=== PATIENT | female | born 1995 | race Caucasian/White ===

== ENCOUNTER → 2022-01-20 | Outpatient (CLI) | payer MEDICAID, SELFPAY ==
[2022-01-20 17:46] LABS: Amphetamine Urine VISTA NEGATIVE (<1000 ng/mL); Barbiturate Urine VISTA NEGATIVE (< 200 ng/mL); Benzodiazepine Urine VISTA NEGATIVE (< 200 ng/mL); Cocaine Urine VISTA NEGATIVE (< 300 ng/mL); Ecstacy Urine VISTA NEGATIVE (< 500 ng/mL); Methadone Urine VISTA NEGATIVE (< 300 ng/mL); PCP Urine VISTA NEGATIVE (< 25 ng/mL); THC Urine VISTA NEGATIVE (< 50 ng/mL); Vista UDS pH Range 7
[2022-01-22 22:07] LABS: Chlamydia By Nucleic Acid AMP Negative (Negative)
[2022-01-25 15:59] LABS: Gonococcus By Nucleic Acid AMP Negative (Negative)
[2022-01-28 12:25] LABS: HPV Reflexed? NOT INDICATED
== END | disposition home or self-care (01) ==
LOC: LABSPEC 15:58
PROVIDERS: Referring Provider Obstetrics & Gynecology; Visit Provider Obstetrics & Gynecology
DX: Z34.00 Encounter for supervision of normal first pregnancy, unspecified trimester (principal)
CPT/HCPCS: 80307; 87086; 87088; 87491; 87591; 88175; G0145

== ENCOUNTER 2022-01-29 11:32 | Outpatient (CLI) | payer MEDICAID, SELFPAY ==
[2022-01-29 12:30] LABS: Absolute Lymphocyte Count 2.43 X10^3/uL (0.83-4.51); Absolute Neutrophil Count 7.7 X10^3/uL (2.0-7.7); Basophil# 0.03 X10^3/uL; Basophil% 0.3 % (0-1); Eosinophil# 0.03 X10^3/uL; Eosinophils% 0.3 % (0-5); Hematocrit 39.4 % (37-47); Hemoglobin 13.2 g/dL (12.0-15.0); Lymphocyte # 2.43 X10^3/ul (0.83-4.51); Lymphocyte % 22.2 % (19-41); Mean Corp Hgb Conc 33.5 g/dL (32-36); Mean Corpuscular Hgb 28.9 pg (27.0-32.0); Mean Corpuscular Volume 86.4 fL (81-99); Mean Platelet Vol. 11.2 fl (6.2-12.0); Monocyte% 6.4 % (0-10); NRBC Flagged by Analyzer 0 % (0-5); Neutrophil # 7.71 X10^3/uL (2.7-7.7); Neutrophil % 70.3 % (47-70); Platelet Count 293 K/mm3 (150-450); RBC Distribution Width CV 12.1 % (11.6-14.6); RBC Distribution Width SD 38.4 fl (35.1-43.9); Red Blood Count 4.56 M/mm3 (4.2-5.4)
[2022-01-29 12:43] LABS: NATERA MAILED SPECIMEN
[2022-01-29 12:59] LABS: Glucose Challenge Gest 1H 50g 74 mg/dL (70-140)
[2022-01-29 13:40] LABS: HIV - WCH Non-Reactive (Nonreactive); Hepatitis B Surface Antigen Non-Reactive (Nonreactive); Hepatitis C Antibody Non-Reactive (Nonreactive); Rubella IgG Reactive (Nonreactive); Syphilis Antibodies Non-reactive
== END 2022-01-29 23:59 | disposition home or self-care (01) ==
LOC: LAB 11:34
PROVIDERS: Visit Provider Obstetrics & Gynecology
DX: Z34.81 Encounter for supervision of other normal pregnancy, first trimester (principal); Z31.430 Encounter of female for testing for genetic disease carrier status for procreative management
CPT/HCPCS: 36415; 82950; 85025; 86703; 86762; 86780; 86803; 86850; 86900; 86901; 87340

== ENCOUNTER → 2022-05-25 | Outpatient (CLI) | payer MEDICAID, SELFPAY ==
[2022-05-25 13:40] LABS: Absolute Lymphocyte Count 2.12 X10^3/uL (0.83-4.51); Basophil# 0.04 X10^3/uL; Basophil% 0.3 % (0-1); Eosinophil# 0.03 X10^3/uL; Eosinophils% 0.3 % (0-5); Hemoglobin 11.7 g/dL (12.0-15.0); Lymphocyte # 2.12 X10^3/ul (0.83-4.51); Lymphocyte % 17.7 % (19-41); Mean Corp Hgb Conc 32.5 g/dL (32-36); Mean Corpuscular Volume 89.3 fL (81-99); Mean Platelet Vol. 11.2 fl (6.2-12.0); Monocyte# 0.65 X10^3/uL; Monocyte% 5.4 % (0-10); NRBC Flagged by Analyzer 0 % (0-5); Neutrophil # 9.01 X10^3/uL (2.7-7.7); Neutrophil % 75.3 % (47-70); Platelet Count 283 K/mm3 (150-450); RBC Distribution Width CV 12.9 % (11.6-14.6); Red Blood Count 4.03 M/mm3 (4.2-5.4)
[2022-05-25 14:04] LABS: Glucose Challenge Gest 1H 50g 100 mg/dL (70-140)
[2022-05-25 14:36] LABS: HIV - WCH Non-Reactive (Nonreactive); Syphilis Antibodies Non-reactive
== END | disposition home or self-care (01) ==
PROVIDERS: Referring Provider Nurse Practitioner Women's Health; Visit Provider Nurse Practitioner Women's Health
DX: Z34.90 Encounter for supervision of normal pregnancy, unspecified, unspecified trimester (principal)
CPT/HCPCS: 36415; 82950; 85025; 86703; 86780

== ENCOUNTER → 2022-06-29 | Outpatient (CLI) | payer MEDICAID, SELFPAY ==
[2022-06-29 09:57] LABS: Absolute Lymphocyte Count 2.11 X10^3/uL (0.83-4.51); Absolute Neutrophil Count 8.5 X10^3/uL (2.0-7.7); Basophil# 0.04 X10^3/uL; Basophil% 0.3 % (0-1); Eosinophil# 0.06 X10^3/uL; Eosinophils% 0.5 % (0-5); Hematocrit 35.6 % (37-47); Lymphocyte # 2.11 X10^3/ul (0.83-4.51); Lymphocyte % 18.3 % (19-41); Mean Corp Hgb Conc 33.7 g/dL (32-36); Mean Corpuscular Hgb 29.6 pg (27.0-32.0); Mean Corpuscular Volume 87.7 fL (81-99); Mean Platelet Vol. 11.4 fl (6.2-12.0); Monocyte# 0.73 X10^3/uL; Monocyte% 6.3 % (0-10); NRBC Flagged by Analyzer 0 % (0-5); Neutrophil # 8.46 X10^3/uL (2.7-7.7); Neutrophil % 73.7 % (47-70); Platelet Count 251 K/mm3 (150-450); RBC Distribution Width CV 13.2 % (11.6-14.6); RBC Distribution Width SD 42.1 fl (35.1-43.9); Red Blood Count 4.06 M/mm3 (4.2-5.4); White Blood Count 11.5 K/mm3 (4.4-11.0)
[2022-06-29 10:38] LABS: ALB/GLOB Ratio 0.6 RATIO (0.9-2.4); AST(SGOT) 14 U/L (15-37); Alanine Aminotransfer ALT/SGPT 15 U/L (13-56); Albumin, Serum 2.5 g/dL (3.2-5.0); Alkaline Phosphatase 106 U/L (45-117); Anion Gap 8 (5-15); BUN 4 mg/dL (7-18); BUN/Creat Ratio 6.6 RATIO (10-20); Calcium,Total 8.6 mg/dL (8.5-10.1); Chloride 110 mmol/L (98-107); EST Glomerular Filtration Rate 127 mL/min (>60); Est Glom Filt Rate - Afr Amer 154 mL/min (>60); Globulin 3.9 g/dL (2.2-4.2); Glucose 99 mg/dL (74-106); Potassium 3.4 mmol/L (3.5-5.1); Protein, Total 6.4 g/dL (6.4-8.2); Sodium Level 141 mmol/L (136-145)
== END | disposition home or self-care (01) ==
PROVIDERS: Referring Provider Nurse Practitioner Women's Health; Visit Provider Nurse Practitioner Women's Health
DX: Z34.90 Encounter for supervision of normal pregnancy, unspecified, unspecified trimester (principal); L29.8 Other pruritus
CPT/HCPCS: 36415; 80053; 85025

== ENCOUNTER 2022-07-24 14:36 | Observation (INO) | payer MEDICAID, SELFPAY ==
[2022-07-24] VITALS (7 sets, daily range): BP systolic 113–127; BP diastolic 58–67; PULSE 77–98; TEMP 36.6–37.4; O2SAT 98–100; BMI 41.0
[2022-07-24 15:00] LABS: Color, Urine Yellow (Yellow); Glucose, Dipstick Normal (Normal); Ketone-Dipstick Negative (Negative); Leukocyte Esterase-Dipstick 100 /ul (Negative); Nitrite-Dipstick Negative (Negative); Occult Blood-Urine Negative /ul (Negative); Protein-Dipstick 15 mg/dl (Negative); Specific Gravity, Urine 1.015 (1.002-1.030); Urine Bilirubin Dipstick Negative (Negative); Urine Clarity Sl. Cloudy (Clear); Urine Urobilinogen Normal (Normal)
[2022-07-24 15:12] LABS: Bacteria 2+ /hpf (None Seen); Mucous, Urine RARE /hpf (<or=2+); Red Blood Cells-Urine 0-5 SEEN /hpf (0-5); Squamous Epithelial Cells - UA 5-10 SEEN /hpf (5-10); White Blood Cells 5-10 SEEN /hpf (0-5)
[2022-07-24] MEDS: Acetaminophen 500 MG Tablet 1000 MG PO (16:00)
[2022-07-24] MEDS: Phenazopyridine 95 MG Tablet 190 MG PO (16:24)
--- NOTE | 2022-07-24 16:47 | US_ITS ---
STUDY: RENAL ULTRASOUND - COMPLETE REASON FOR EXAM: Female, 26 years old. Back pain at 36 weeks . Flank pain. TECHNIQUE: Ultrasound evaluation of the kidneys was performed with real-time and static drake-scale imaging. COMPARISON: None. FINDINGS: RIGHT KIDNEY: Normal location of the right kidney, which is normal in size. The right kidney measures 11.0 cm. There is a normal cortex of the right kidney. The renal cortex measures 1.3 cm. There is no right renal mass or cyst. There are no right renal calculi. There is no right hydronephrosis. DISTAL RIGHT URETER: There is non-visualization of the distal right ureter. There is no demonstrated right ureterovesical junction calculus. There is no demonstrated right ureteral jet. LEFT KIDNEY: Normal location of the left kidney, which is mildly enlarged in size. The left kidney measures 12 point cm. There is a normal cortex of the left kidney. The renal cortex measures 1.5 cm. There is a 1.5 x 1.3 x 1 point 7 cm exophytic cyst. There are no left renal calculi. There is no left hydronephrosis. DISTAL LEFT URETER: There is non-visualization of the distal left ureter. There is no demonstrated left ureterovesical junction calculus. There is no demonstrated left ureteral jet. BLADDER: The urinary bladder is empty and cannot be evaluated. US/Kidney and Bladder IMPRESSION: 1. Normal kidneys. The urinary bladder is empty and cannot be evaluated. Electronically Signed: Rodrigo Washburn DO at 19:42 EST ,
[2022-07-24] MEDS: Lactated Ringers 1,000 ML 999 ML IV (17:15)
--- NOTE | 2022-07-24 17:37 | HP.PCM.OB_ITS ---
HPI - General HPI Narrative JOJO PELAEZ, is a 26 F who presents at 36 weeks with sudden mid back pain that radiates to her upper abdomen starting at 130pm after getting out of the shower. +fm, no lof/vb. uriah every 2-3 minutes. 8/10 pain. urine dip with +leukocytes, no heme, no nitrates Maternal Data Information THOMAS Calculator Estimated Delivery Date Method Current WG Current Estimate 08/21/22 LMP (Certain) 36w 0d Other Estimates 08/17/22 Ultrasound #1 36w 4d PFSH PFSH Home Medications PNV 153-FA 400 mcg-om3 35 mg-dha 25 mg-epa 5 mg-fish oil chew tablet 1 tab PO DAILY 01/13/22 [History Last Taken 07/24/22 08:00] nitrofurantoin monohydrate/macrocrystals 100 mg capsule (Macrobid) 100 mg PO Q12H 5 days #10 caps 07/24/22 [Rx Last Taken Unknown] Allergy/AdvReac Type Severity Reaction Status Date / Time No Known Allergies Allergy Verified 07/24/22 14:52 Social History adopted: No household members: significant other and family housing: house current occupational status: employed 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 current occupational exposures/hazards: No pets and animals: Yes pets and animals: dog(s) history of recent travel: No sexually active: Yes Smoking Status: Never smoker second hand exposure: No alcohol intake: former details: rarely socially- Not while substance use type: does not use well-balanced diet: daily or most days caffeine: Yes Type: coffee Number of servings: 1 eating out: 1-3 times/week during the past year weight has: decreased > 10 lbs what type of physical activity do you participate in: none ronn/zoroastrianism: None seatbelt use: always do you feel safe at home: Yes additional social history: Boyfriend Pernell- Pest Control History 1 Elective abortions Hx Para 0 Spontaneous abortions Hx # Term Pregnancies Ectopic pregnancies Hx # Pregnancies Multiple births # of living children Visit Details Expected Delivery Route/Plan Labor Preferences- CB/BF classes: completing,thinking about just breath class labor support person:partner labor intervention preferences: [] pain management options preferred: [] cut cord/dad catch: [] :planning PP control planned: desires shorter interval . wants all children prior to 30 discussed possible routes of delivery and associated risks: special requests: [] Plans Covid status: discussed Flu vaccine: discussed Tdap vaccine: declined Rhogam: na LARC form signed: completed Problem list reviewed and updated with the most current plan of care details and appropriate orders placed. Relevant counseling for the gestational age provided. Continue routine care and follow up unless otherwise noted in visit notes/problem list details OB Flowsheet Initial Weight: Not Recorded Date -?-?-?-?-?-?-?-?-?-?-?-?- EGA Weight BP Urine Prot -?-?-?-?-?-?-?-?-?-?-?--?- Glucose FHR FuHt Pres Dilation -?-?-?-?-?-?-?-?-?-?-?-?- Effaced St Visit Note 01/20/22 -?-?-?-?-?-?-?-?-?-?-?-?- 9w 4d 219 lb 6 oz 125/82 -?-?-?-?-?-?-?-?-?-?-?-?- 171 -?-?-?-?-?-?-?-?-?-?-?-?- JV- CRL consiste nt with LMP. 02/16/22 -?-?-?-?-?-?-?-?-?-?-?-?- 13w 3d 218 lb 126/78 -?-?-?-?-?-?-?-?-?-?-?-?- 160 -?-?-?-?-?-?-?-?-?-?-?-?- SM- no vb crampi ng 03/16/22 -?-?-?-?-?-?-?-?-?-?-?-?- 17w 3d 217 lb 8 oz 128/76 Nega tive -?-?-?-?-?-?-?-?-?-?-?-?- Negative 156 -?-?-?-?-?-?-?-?-?-?-?-?- MH-No VB. Feels well. High fraction on NIPT-declines invasive [facility] [place] -?-?-?-?-?-?-?-?-?-?-?-?- 21w 3d 218 lb 138/76 Negative -?-?-?-?-?-?-?-?-?-?-?-?- Negative 140 21 -?-?-?-?-?-?-?-?-?-?-?-?- SM- no vb abe kiser discussed nipt and US results, still declines invasive testing, plan repeat US due to marginal insertion of cord and limited heart views. 05/12/22 -?-?-?-?-?-?-?-?-?-?-?-?- 25w 4d 221 lb 6 oz 128/68 Nega tive -?-?-?-?-?-?-?-?-?-?-?-?- Negative 161 25 -?-?-?-?-?-?-?-?-?-?-?-?- MH-No VB, LOF. G ood FM. MFM US for growth next week. 05/27/22 -?-?-?-?-?-?-?-?-?-?-?-?- 27w 5d 220 lb 6 oz 110/74 -?-?-?-?-?-?-?-?-?-?-?-?- 151 29 -?-?-?-?-?-?-?-?-?-?-?-?- LC- no concerns. no vb/ctx/lof. good fm. LC- no concerns. no vb/ctx/l of. good fm.28 week labs normal. larc completed. 06/08/22 -?-?-?-?-?-?-?-?-?-?-?-?- 29w 3d 222 lb 116/70 Negative -?-?-?-?-?-?-?-?-?-?-?-?- Negative 150 30 -?-?-?-?-?-?-?-?-?-?-?-?- SM- no vb lof go od fm no regular ctx declined tdap 06/22/22 -?-?-?-?-?-?-?-?-?-?-?-?- 31w 3d 225 lb 112/67 Negative -?-?-?-?-?-?-?-?-?-?-?-?- Negative 145 32 -?-?-?-?-?-?-?-?-?-?-?-?- Lc- no vb/ctx/lo f. good fm. to start NST next week. growth scan at 65% 06/29/22 -?-?-?-?-?-?-?-?-?-?-?-?- 32w 3d 225 lb 6 oz 108/66 Nega tive -?-?-?-?-?-?-?-?-?-?-?-?- Negative 140 -?-?-?-?-?-?-?-?-?-?-?-?- -NST only reac tive. New rash on abdomen only/itching. Labs ordered. 07/06/22 -?-?-?-?-?-?-?-?-?-?-?-?- 33w 3d 224 lb 8 oz 111/73 Nega tive -?-?-?-?-?-?-?-?-?-?-?-?- Negative 130 -?-?-?-?-?-?-?-?-?-?-?-?- SM- no vb lof go od fm no regular ctx 07/13/22 -?-?-?-?-?-?-?-?-?-?-?-?- 34w 3d 228 lb 4 oz 118/78 Nega tive -?-?-?-?-?-?-?-?-?-?-?-?- Negative 130 -?-?-?-?-?-?-?-?-?-?-?-?- -NST only reac tive 07/20/22 -?-?-?-?-?-?-?-?-?-?-?-?- 35w 3d 229 lb 113/72 Negative -?-?-?-?-?-?-?-?-?-?-?-?- Negative 130 -?-?-?-?-?-?-?-?-?-?-?-?- LC- reactive NST , no concerns. has appt with MFM for growth scan end of july. good fm, no ctx, lof/vb. NST FHR Rate Baby A Baseline: 125 Variability:: Moderate Accelerations:: 15 x 15 Decelerations:: None NST Reactive:: Yes FHR Category:: Category I Uterine Activity:: q2-3 ROS Cardiovascular Cardiovascular: Denies abdominal pain, chest pain, diaphoresis or dyspnea Genitourinary Genitourinary: Reports change in urinary stream Musculoskeletal Musculoskeletal: Reports none Integumentary Integumentary: Reports none Neurologic Neurologic: Reports none Psychiatric Psychiatric: Reports none Endocrine Endocrinology: Reports none Hematologic/Lymphatic Hematologic/Lymphatic: Reports none Allergic/Immunologic Allergic/Immunologic: Reports none Vital Signs Vital Signs Vital Signs: 07/24/22 14:57 07/24/22 14:57 07/24/22 14:57 Temperature Temperature Source Temporal Pulse Rate 77 Blood Pressure 127/67 H BP Systolic 127 BP Diastolic 67 07/24/22 14:57 Temperature 97.9 F Temperature Source Pulse Rate Blood Pressure BP Systolic BP Diastolic Weight Weight: 231 lb 7.766 oz Body Mass Index (BMI) 41.0 Physical Exam Const alert, oriented x3 and no apparent distress General Appearance: cooperative, comfortable and well kempt Orientation / Consciousness: awake and oriented to person Exam Limitations: no limitations HEENT normocephalic Neck full ROM Chest inspection of chest normal Resp normal respiratory effort, normal air movement and no retractions Effort and Inspection: able to speak in complete sentences and symmetric chest movement Cardio regular rate Peripheral Pulses: pulses 2+ throughout GI normal to inspection, nondistended, normoactive bowel sounds Inspection: gravid Manual OB Exam: estimated gestational size appropriate and presentation cephalic Uterus Palpation: Negative for uterus tender Back/Spine General Back: tenderness Extremity normal to inspection General Extremity: Negative for calf tenderness Skin no rashes or lesions noted Neuro moves all extremities Psych mental status grossly normal Activity / Motor Behavior: appropriate eye contact Speech: normal speech Labs Labs Labs: Blood Type A POSITIVE Antibody Screen NEGATIVE Hct 41.3 % (37-47) Hgb 13.9 g/dL (12.0-15.0) Syphilis Total Ab Non-reactive Rubella IgG Antibody Reactive (Nonreactive) Hep Bs Antigen Non-Reactive (Nonreactive) Chlamydia DNA (ABBY) Negative (Negative) Neisseria gonorrhoeae DNA (ABBY) Negative (Negative) HIV 1&2 Antibody Non-Reactive (Nonreactive) Glucose 1 Hr 50 gm 100 mg/dL (70-140) Group B Strep DNA Pending Miscellaneous Test Assessment & Plan (1) Renal calculus: COMMENT: afebrile, VSS obtaining CBC and renal ultrasound s/p tylenol and pyridium 2g ancef, will transition to keflex outpatient. PLAN: -1L LR bolus -morphine 4mg IVP (2) Marginal insertion of umbilical cord: COMMENT: weekly nsts. growth us q 4 weeks. (3) Abnormal genetic test during : COMMENT: high risk fraction, declines invasive genetic testing. recommend weekly nsts after 32 and growth us q 4 weeks,07/06 nl growth-48% (4) Obesity affecting : COMMENT: 1 TM GCT (5) Supervision of normal first : COMMENT: PRR , THOMAS 08/21/22, boy BF - Pernell (6) : QUALIFIERS: Weeks of gestation: 35 weeks Qualified Code(s): Z3A.35 - 35 weeks gestation of COMMENT: high risk NIPT due to DNA fraction MFM referral sent, Carrier neg. , nl GCT. nl anatomy (7) Seasonal allergies: COMMENT: grass, pollen, cat dander PLAN: Plan admit to observation status for r/o renal stones vs early labor obtain labor admission labs during IV start GBS screening Dr. Murray updated on exam and poc. will add 2g Ancef for suspected kidney stone with leukocytes.
[2022-07-24] MEDS: Morphine 4 MG/ML Syringe IV (17:38)
[2022-07-24 17:41] LABS: Hematocrit 41.3 % (37-47); Hemoglobin 13.9 g/dL (12.0-15.0); Mean Corp Hgb Conc 33.7 g/dL (32-36); Mean Corpuscular Hgb 29.4 pg (27.0-32.0); Mean Corpuscular Volume 87.5 fL (81-99); Platelet Count 274 K/mm3 (150-450); RBC Distribution Width CV 13.2 % (11.6-14.6); RBC Distribution Width SD 42.2 fl (35.1-43.9); Red Blood Count 4.72 M/mm3 (4.2-5.4); White Blood Count 16.8 K/mm3 (4.4-11.0)
[2022-07-24 18:11] LABS: Syphilis Antibodies Non-reactive
[2022-07-24] MEDS: Cefazolin 2 GM in 0.9% Normal Saline 100 ML IV (18:42)
[2022-07-24] MEDS: Lactated Ringers 1,000 ML 125 ML IV (18:42)
[2022-07-24 19:33] LABS: Group B Strep DNA By PCR Negative (Negative); Internal Control PASS; Probe Check PASS; Specimen Processing Control PASS
[2022-07-24] MEDS: 0.9% Saline Lock 10 ML Syringe IV (20:52)
[2022-07-24] MEDS: 0.9% Normal Saline 1,000 ML 125 ML IV (20:55)
[2022-07-24] MEDS: Ceftriaxone 1 GM/50 ML BAG IV (21:00)
[2022-07-24] MEDS: Acetaminophen 325 MG Tablet 650 MG PO (21:11)
[2022-07-24 21:48] LABS: ALB/GLOB Ratio 0.7 RATIO (0.9-2.4); AST(SGOT) 20 U/L (15-37); Alanine Aminotransfer ALT/SGPT 15 U/L (13-56); Albumin, Serum 2.6 g/dL (3.2-5.0); Alkaline Phosphatase 132 U/L (45-117); Anion Gap 9 (5-15); BUN 4 mg/dL (7-18); BUN/Creat Ratio 5.8 RATIO (10-20); Calcium,Total 8.9 mg/dL (8.5-10.1); Chloride 107 mmol/L (98-107); Creatinine, Serum 0.69 mg/dL (0.55-1.02); EST Glomerular Filtration Rate 109 mL/min (>60); Est Glom Filt Rate - Afr Amer 132 mL/min (>60); Estimated Creatinine Clearance 102.21 ml/min; Globulin 3.7 g/dL (2.2-4.2); Glucose 94 mg/dL (74-106); Potassium 3.6 mmol/L (3.5-5.1); Protein, Total 6.3 g/dL (6.4-8.2); Sodium Level 138 mmol/L (136-145)
[2022-07-25 00:24] VITALS: TEMP 37.1
[2022-07-25 00:25] VITALS: BP 102/50; PULSE 92; PULSE 96; O2SAT 97
[2022-07-25 05:00] VITALS: BP 124/54; PULSE 93; PULSE 96; TEMP 36.8; O2SAT 97
[2022-07-25] MEDS: 0.9% Normal Saline 1,000 ML 125 ML IV (05:06)
[2022-07-25 05:27] LABS: Absolute Lymphocyte Count 2.72 X10^3/uL (0.83-4.51); Absolute Neutrophil Count 10.3 X10^3/uL (2.0-7.7); Basophil# 0.01 X10^3/uL; Basophil% 0.1 % (0-1); Eosinophil# 0.01 X10^3/uL; Eosinophils% 0.1 % (0-5); Hematocrit 36.4 % (37-47); Hemoglobin 12.1 g/dL (12.0-15.0); Lymphocyte # 2.72 X10^3/ul (0.83-4.51); Lymphocyte % 19.2 % (19-41); Mean Corp Hgb Conc 33.2 g/dL (32-36); Mean Corpuscular Hgb 28.9 pg (27.0-32.0); Mean Corpuscular Volume 87.1 fL (81-99); Mean Platelet Vol. 11.6 fl (6.2-12.0); Monocyte# 0.99 X10^3/uL; NRBC Flagged by Analyzer 0 % (0-5); Neutrophil # 10.34 X10^3/uL (2.7-7.7); Neutrophil % 73.1 % (47-70); Platelet Count 235 K/mm3 (150-450); RBC Distribution Width CV 13.2 % (11.6-14.6); RBC Distribution Width SD 41.7 fl (35.1-43.9); Red Blood Count 4.18 M/mm3 (4.2-5.4); White Blood Count 14.1 K/mm3 (4.4-11.0)
[2022-07-25 05:54] LABS: ALB/GLOB Ratio 0.6 RATIO (0.9-2.4); AST(SGOT) 51 U/L (15-37); Alanine Aminotransfer ALT/SGPT 29 U/L (13-56); Albumin, Serum 2.3 g/dL (3.2-5.0); Alkaline Phosphatase 137 U/L (45-117); Anion Gap 10 (5-15); BUN 3 mg/dL (7-18); BUN/Creat Ratio 4.6 RATIO (10-20); Calcium,Total 8.8 mg/dL (8.5-10.1); Chloride 111 mmol/L (98-107); Creatinine, Serum 0.66 mg/dL (0.55-1.02); EST Glomerular Filtration Rate 115 mL/min (>60); Est Glom Filt Rate - Afr Amer 140 mL/min (>60); Estimated Creatinine Clearance 106.85 ml/min; Globulin 3.7 g/dL (2.2-4.2); Glucose 87 mg/dL (74-106); Potassium 3.6 mmol/L (3.5-5.1); Sodium Level 141 mmol/L (136-145)
--- NOTE | 2022-07-25 07:47 | US_ITS ---
EXAM: US ABDOMEN LIMITED, RIGHT UPPER QUADRANT CLINICAL INDICATION: UPPER ABD PAIN -- r/o gallstones -- right upper quadrant TECHNIQUE: Real-time ultrasound of the right upper quadrant with image documentation. This report was created using [employer] report generation technology. COMPARISON: Renal ultrasound 07/24/2022. FINDINGS: LIVER: Unremarkable. There is normal echotexture. No focal hepatic lesion. No intrahepatic biliary ductal dilation. GALLBLADDER: Slight ringdown artifact from the anterior gallbladder wall may be due to adenomyomatosis. Possible slight gallbladder sludge. No pericholecystic fluid. Negative sonographic Dixon''s sign. No gallstones. COMMON BILE DUCT: Unremarkable as visualized. The proximal common bile duct is within normal limits for the patient''s age. PANCREAS: Pancreas not well-visualized. RIGHT KIDNEY: Mild right hydronephrosis. No shadowing calculus. No focal lesion or perinephric collection is demonstrated. US/Abdomen Limited IMPRESSION: 1. Mild right hydronephrosis. This was not seen on the renal ultrasound 07/24/2022. 2. Possible slight gallbladder sludge. 3. No gallstones. 4. Slight ringdown artifact from the anterior gallbladder wall may be due to adenomyomatosis. Electronically Signed: Cristian Jackson MD at 10:36 EST ,
[2022-07-25 08:44] VITALS: PULSE 94; O2SAT 98
[2022-07-25 08:45] VITALS: BP 116/62; PULSE 88
[2022-07-25 10:53] VITALS: BP 119/59; PULSE 96; TEMP 36.9; O2SAT 97
== END 2022-07-25 11:55 | disposition home or self-care (01) ==
LOC: WPOUT 14:39 → WP 07-25 10:57
PROVIDERS: Admitting Provider Registered Nurse; Referring Provider Registered Nurse; Visit Provider Registered Nurse
DX: O99.891 Other specified diseases and conditions complicating pregnancy (principal); N20.0 Calculus of kidney; Z3A.36 36 weeks gestation of pregnancy; O99.213 Obesity complicating pregnancy, third trimester; E66.9 Obesity, unspecified; O43.193 Other malformation of placenta, third trimester
CPT/HCPCS: 96365; 96367; 96361 ×2; 96375; J7030; J7120; 36415; 59025; 59050; 76705; 76770; 80053; 81001; 85025; 85027; 86780; 86850; 86900; 86901; 87081; 87086; 87088; 87653; 99221; A4216; G0378

== ENCOUNTER 2022-08-16 07:20 | Inpatient (IN) | payer MEDICAID, SELFPAY ==
[2022-08-16] VITALS (58 sets, daily range): BP systolic 91–141; BP diastolic 46–77; PULSE 74–122; TEMP 36–37.2; O2SAT 93–100; BMI 40.7
[2022-08-16] MEDS: Lactated Ringers 1,000 ML 50 ML IV (08:12)
--- NOTE | 2022-08-16 08:24 | HP.PCM.OB_ITS ---
HPI - General General Date of Admission: 08/16/22 Date of Service: 08/16/22 HPI Narrative JOJO PELAEZ, is a 26 F at 39.2 weeks who presents for IOL for history of obesity, abnormal genetic testing during , marginal insertion of umbilical cord, and gallbladder sludge Maternal Data Information THOMAS Calculator Estimated Delivery Date Method Current WG Current Estimate 08/21/22 LMP (Certain) 39w 2d Other Estimates 08/17/22 Ultrasound #1 39w 6d Final THOMAS: 08/21/22 Final THOMAS Source: US >20 weeks Gestational age: 39 weeks 2 days PFSH PFSH Home Medications PNV 153-FA 400 mcg-om3 35 mg-dha 25 mg-epa 5 mg-fish oil chew tablet 1 tab PO DAILY Check with primary doctor 01/13/22 [History Last Taken 07/24/22 08:00] Allergy/AdvReac Type Severity Reaction Status Date / Time No Known Allergies Allergy Verified 08/16/22 08:03 no significant family history Surgical History History of surgery History of surgery History of surgery Social History adopted: No household members: significant other and family housing: house current occupational status: employed 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 current occupational exposures/hazards: No pets and animals: Yes pets and animals: dog(s) history of recent travel: No sexually active: Yes Smoking Status: Never smoker second hand exposure: No alcohol intake: former details: rarely socially- Not while substance use type: does not use well-balanced diet: daily or most days caffeine: Yes Type: coffee Number of servings: 1 eating out: 1-3 times/week during the past year weight has: decreased > 10 lbs what type of physical activity do you participate in: none ronn/rastafari: None seatbelt use: always do you feel safe at home: Yes additional social history: Boyfriend Pernell- Pest Control History 1 Elective abortions Hx Para 0 Spontaneous abortions Hx # Term Pregnancies Ectopic pregnancies Hx # Pregnancies Multiple births # of living children Visit Details Expected Delivery Route/Plan Labor Preferences- CB/BF classes: completing,thinking about just breath class labor support person:partner labor intervention preferences: [] pain management options preferred: [] cut cord/dad catch: [] :planning PP control planned: desires shorter interval . wants all children prior to 30 discussed possible routes of delivery and associated risks: special requests: [] Plans Covid status: discussed Flu vaccine: discussed Tdap vaccine: declined Rhogam: na LARC form signed: completed Problem list reviewed and updated with the most current plan of care details and appropriate orders placed. Relevant counseling for the gestational age provided. Continue routine care and follow up unless otherwise noted in visit notes/problem list details OB Flowsheet Initial Weight: Not Recorded Date -?-?-?-?-?-?-?-?-?-?-?-?- EGA Weight BP Urine Prot -?-?-?-?-?-?-?-?-?-?-?-?- Glucose FHR FuHt Pres Dilation -?-?-?-?-?-?-?-?-?-?-?-?- Effaced St Visit Note 01/20/22 -?-?-?-?-?-?-?-?-?-?-?-?- 9w 4d 219 lb 6 oz 125/82 -?-?-?-?-?-?-?-?-?-?-?-?- 171 -?-?-?-?-?-?-?-?-?-?-?-?- JV- CRL consiste nt with LMP. 02/16/22 -?-?-?-?-?-?-?-?-?-?-?-?- 13w 3d 218 lb 126/78 -?-?-?-?-?-?-?-?-?-?-?-?- 160 -?-?-?-?-?-?-?-?-?--?-?-?- SM- no vb crampi ng 03/16/22 -?-?-?-?-?-?-?-?-?-?-?-?- 17w 3d 217 lb 8 oz 128/76 Nega tive -?-?-?-?-?-?-?-?-?-?-?-?- Negative 156 -?-?-?-?-?-?-?-?-?-?-?-?- MH-No VB. Feels well. High fraction on NIPT-declines invasive testing. [facility] [place] -?-?-?-?-?-?-?-?-?-?-?-?- 21w 3d 218 lb 138/76 Negative -?-?-?-?-?-?-?-?-?-?-?-?- Negative 140 21 -?-?-?-?-?-?-?-?-?-?-?-?- SM- no vb abe kiser discussed nipt and US results, still declines invasive testing, plan repeat US due to marginal insertion of cord and limited heart views. 05/12/22 -?-?-?-?-?-?-?-?-?-?-?-?- 25w 4d 221 lb 6 oz 128/68 Nega tive -?-?-?-?-?-?-?-?-?-?-?-?- Negative 161 25 -?-?-?-?-?-?-?-?-?-?-?-?- MH-No VB, LOF. G ood FM. MF US for growth next week. 05/27/22 -?--?-?-?-?-?-?-?-?-?-?-?- 27w 5d 220 lb 6 oz 110/74 -?-?-?-?-?-?-?-?-?-?-?-?- 151 29 -?-?-?-?-?-?-?-?-?-?-?-?- LC- no concerns. no vb/ctx/lof. good fm. LC- no concerns. no vb/ctx/l of. good fm.28 week labs normal. [facility] completed. 06/08/22 -?-?-?-?-?-?-?-?-?-?-?-?- 29w 3d 222 lb 116/70 Negative -?-?-?-?-?-?--?-?-?-?-?-?- Negative 150 30 -?-?-?-?-?-?-?-?-?-?-?-?- SM- no vb lof go od fm no regular ctx declined tdap 06/22/22 -?-?-?-?-?-?-?-?-?-?-?-?- 31w 3d 225 lb 112/67 Negative -?-?-?-?-?-?-?-?-?-?-?-?- Negative 145 32 -?-?-?-?-?-?-?-?-?-?-?-?- Lc- no vb/ctx/lo f. good fm. to start NST next week. growth scan at 65% 06/29/22 -?-?-?-?-?-?-?-?-?-?-?-?- 32w 3d 225 lb 6 oz 108/66 Nega tive -?-?-?-?-?-?-?-?-?-?-?-?- Negative 140 -?-?-?-?-?-?-?-?-?-?-?-?- -NST only reac tive. New rash on abdomen only/itching. Labs ordered. 07/06/22 -?-?-?-?-?-?-?-?-?-?-?-?- 33w 3d 224 lb 8 oz 111/73 Nega tive -?-?-?-?-?-?-?-?-?-?-?-?- Negative 130 -?-?-?-?-?-?-?-?-?-?-?-?- SM- no vb lof go od fm no regular ctx 07/13/22 -?-?-?-?-?-?-?-?-?-?-?-?- 34w 3d 228 lb 4 oz 118/78 Nega tive -?-?-?-?-?-?-?-?-?-?-?-?- Negative 130 -?-?-?-?-?-?-?-?-?-?-?-?- -NST only reac tive 07/20/22 -?-?-?-?-?-?-?-?-?-?-?-?- 35w 3d 229 lb 113/72 Negative -?-?-?-?-?-?-?-?-?-?-?-?- Negative 130 -?-?-?-?-?-?-?-?-?-?-?-?- LC- reactive NST , no concerns. has appt with MFM for growth scan end july. good fm, no ctx, lof/vb. 07/27/22 -?-?-?-?-?-?-?-?-?-?-?-?- 36w 3d 228 lb 6 oz 126/74 -?-?-?--?-?-?-?-?-?-?-?-?- 130 -?-?-?-?-?-?-?-?-?-?-?-?- LC- reactive NST . +contractions on monitor, pt not feeling these. good fm, no lof/vb. GBS negative. is on abx for presumed pyelonephritis. on low fat diet for gallbladder sludge. 08/03/22 -?-?-?-?-?-?-?-?-?-?-?-?- 37w 3d 225 lb 2 oz 120/84 Nega tive -?-?-?-?-?-?-?-?-?-?-?-?- Negative 136 37 -?-?-?-?-?-?-?-?-?-?-?-?- MH-No VB, LOF. g ood FM. Reactive NST. Growth 08/0408/10/22 -?-?-?-?-?-?-?-?-?-?-?-?- 38w 3d 228 lb 8 oz 116/77 Nega tive -?-?-?-?-?-?-?-?-?-?-?-?- Negative 130 38 Cephalic 1 .5 -?-?-?-?-?-?-?-?-?-?-?-?- 50 -3 SM- no vb lof good fm n oregular ctx discussed IOL vs exp management NST FHR Rate Baby A Baseline: 135 Variability:: Moderate Accelerations:: 15 x 15 Decelerations:: None NST Reactive:: Yes FHR Category:: Category I Uterine Activity:: irregular ROS Constitutional Constitutional: Denies change in weight, fatigue, fever(s), headache(s), poor appetite or weakness Eyes Eyes: Denies blurry vision, change in vision, floaters, seeing flashes or spots in vision ENT HEENT: Denies dizziness, headache(s), loss taste/smell or sore throat Cardiovascular Cardiovascular: Denies chest pain, dizziness, dyspnea, irregular heart rhythm, lightheadedness, palpitations or rapid heart rate Respiratory/Chest Respiratory/Chest: Denies change in mental status, chest tightness, cough, dyspnea or breast pain Gastrointestinal Gastrointestinal: Denies anorexia, chewing difficulty, constipation, diarrhea or weight changes Genitourinary Genitourinary: Denies difficulty urinating, dysuria, flank pain, genital pain, urinary frequency or urinary urgency Musculoskeletal Musculoskeletal: Denies back pain, difficulty walking, extremity pain, joint pain, muscle cramps or muscle weakness Integumentary Integumentary: Denies lesions or unusual bruising Neurologic Neurologic: Denies abnormal movements, abnormal speech, dizziness, numbness, seizure-like activity, syncope or weakness Psychiatric Psychiatric: Denies behavioral changes, change in appetite, confusion, de pression, homicidal ideation, suicidal ideation or suicidal thoughts Endocrine Endocrinology: Denies excessive sweating, polydipsia or polyuria Hematologic/Lymphatic Hematologic/Lymphatic: Denies anemia Allergic/Immunologic Allergic/Immunologic: Denies itchy eyes, lip swelling, throat swelling, tongue swelling or wheezing Vital Signs Vital Signs Vital Signs: 08/16/22 07:58 08/16/22 07:58 08/16/22 07:58 Temperature 97.9 F Temperature Source Pulse Rate 92 Blood Pressure 114/70 BP Systolic 114 BP Diastolic 70 08/16/22 07:58 Temperature Temperature Source Temporal Pulse Rate Blood Pressure BP Systolic BP Diastolic Weight Weight: 230 lb Body Mass Index (BMI) 40.7 Physical Exam Const alert, oriented x3 and no apparent distress General Appearance: cooperative Orientation / Consciousness: awake HEENT normocephalic Neck full ROM Lymph Lymphatic: no lymphadenopathy noted Resp normal respiratory effort and normal air movement Effort and Inspection: able to speak in complete sentences and symmetric chest movement GI soft to palpation and non-tender Inspection: gravid Palpation: soft; Negative for tender external exam normal Manual OB Exam: estimated gestational size appropriate, presentation ceph alic, dilated 3, effaced 70 and station -3 Back/Spine normal to inspection Extremity normal to inspection and full ROM Skin no rashes or lesions noted Psych mental status grossly normal Appearance: grossly normal Speech: normal speech Labs Labs Labs: Blood Type A POSITIVE Antibody Screen NEGATIVE Hct 36.4 % (37-47) L Hgb 12.1 g/dL (12.0-15.0) Syphilis Total Ab Non-reactive Rubella IgG Antibody Reactive (Nonreactive) Hep Bs Antigen Non-Reactive (Nonreactive) Chlamydia DNA (ABBY) Negative (Negative) Neisseria gonorrhoeae DNA (ABBY) Negative (Negative) HIV 1&2 Antibody Non-Reactive (Nonreactive) Glucose 1 Hr 50 gm 100 mg/dL (70-140) Group B Strep DNA Negative (Negative) Miscellaneous Test Assessment & Plan (1) Elective induction of labor planned: PLAN: Patient presents IOL, plan management for with pitocin/AROM. Pain management: plans epidural. GBS negative. Management of any complications: Pupp rash, obesity, abnormal genetic test during , review problem list I have reviewed the [facility] and made any clinically relevant updates. (2) : QUALIFIERS: Weeks of gestation: 38 weeks Qualified Code(s): Z3A.38 - 38 weeks gestation of COMMENT: GBS NEG, high risk NIPT due to DNA fraction [facility] referral sent, Carrier neg. , nl GCT. nl anatomy (3) Supervision of normal first : COMMENT: PRR , THOMAS 08/21/22, boy BF - Pernell (4) Obesity affecting : COMMENT: 1 TM GCT (5) Abnormal genetic test during : COMMENT: high risk fraction, declines invasive genetic testing. recommend weekly nsts after 32 and growth us q 4 weeks,2/ nl growth-48% (6) Marginal insertion of umbilical cord: COMMENT: weekly nsts. growth us q 4 weeks. (7) Pyelonephritis affecting : COMMENT: afebrile, VSS obtaining CBC and renal ultrasound.ultrasound negative for calculi. s/p tylenol and pyridium 2g ancef, will transition to keflex outpatient. (8) Gallbladder sludge: COMMENT: low fat diet nutrition consult. (9) PUPP (pruritic urticarial papules and plaques of ): COMMENT: rash just abdomen. Labs nl Charges/Coding Procedures Urinary/Genital [id number]: No Charge
[2022-08-16] MEDS: Oxytocin 15 Units/NS 250ml 15 UNITS/250 ML IV.SOLN 2 UNITS IV (08:42)
[2022-08-16 08:47] LABS: Absolute Lymphocyte Count 2.54 X10^3/uL (0.83-4.51); Absolute Neutrophil Count 8.2 X10^3/uL (2.0-7.7); Basophil# 0.04 X10^3/uL; Basophil% 0.3 % (0-1); Eosinophil# 0.06 X10^3/uL; Eosinophils% 0.5 % (0-5); Hematocrit 39.3 % (37-47); Hemoglobin 13.2 g/dL (12.0-15.0); Lymphocyte # 2.54 X10^3/ul (0.83-4.51); Lymphocyte % 21.7 % (19-41); Mean Corp Hgb Conc 33.6 g/dL (32-36); Mean Corpuscular Hgb 29.3 pg (27.0-32.0); Mean Corpuscular Volume 87.3 fL (81-99); Mean Platelet Vol. 12.4 fl (6.2-12.0); Monocyte% 6.8 % (0-10); NRBC Flagged by Analyzer 0 % (0-5); Neutrophil # 8.19 X10^3/uL (2.7-7.7); Neutrophil % 70.3 % (47-70); Platelet Count 226 K/mm3 (150-450); RBC Distribution Width CV 13.7 % (11.6-14.6); RBC Distribution Width SD 43.2 fl (35.1-43.9); White Blood Count 11.7 K/mm3 (4.4-11.0)
[2022-08-16 09:38] LABS: Syphilis Antibodies Non-reactive
--- NOTE | 2022-08-16 14:12 | PN_ITS ---
Progress Note Patient coping well with contractions. current tracing: FHT: 130 Moderate variability reactive no decelerations category I tracing [place]: Contractions every 1-4 minutes palpating moderate. Patient rating them a 2/10 on pain scale. Pitocin at 16mu AROM for large amount of clear fluid by Dr Yang internals placed SVE /- reviewed tracing abnormalities since last note: Cat 1 strip A/P: Continue with current POC Continue position changes Increase pitocin per protocol Epidural PRN Anticipate Assessment & Plan Assessment/Plan (1) Elective induction of labor planned: (2) Supervision of normal first : (3) : QUALIFIERS: Weeks of gestation: 38 weeks Qualified Code(s): Z3A.38 - 38 weeks gestation of Procedures Urinary/Genital [id number]: No Charge
[2022-08-16] MEDS: LACTATED RINGERS 500 ML 999 ML IV ×2 (14:37→21:23)
[2022-08-16] MEDS: fentaNYL-bupivacaine (epidural) 100 ML BAG EPIDURAL ×2 (15:34→19:50)
[2022-08-16] MEDS: Lactated Ringers 1,000 ML 999 ML IV (17:09)
--- NOTE | 2022-08-16 18:56 | PCM.PN.BLA ---
Progress Note Patient comfortable with epidural current tracing: FHT: 135 Moderate variability reactive, occasional variable, category II tracing, overall reassuring [place]: Contractions q2-3 minutes, palpating moderate to strong. Pitocin at 6 mu SVE / reviewed tracing abnormalities since last note: Prolonged deceleration with multiple nursing interventions. Pitocin discontinued, position changed and O2 on. resolved with interventions. Papo Yang aware of FHT. A/P: Continue with position changes Pitocin restarted per protocol Anticipate Procedures Urinary/Genital [id number]: No Charge
[2022-08-16] MEDS: Lactated Ringers 1,000 ML 200 ML IV (21:16)
[2022-08-16] MEDS: Oxytocin 15 Units/NS 250ml 15 UNITS/250 ML IV.SOLN 83 UNITS IV (22:24)
[2022-08-16] MEDS: Oxytocin 10 UNITS/ML Vial IM (22:24)
--- NOTE | 2022-08-16 22:28 | OP.PCM_ITS ---
Assessment & Plan (1) Elective induction of labor planned: (2) Seasonal allergies: COMMENT: grass, pollen, cat dander (3) : QUALIFIERS: Weeks of gestation: 38 weeks Qualified Code(s): Z3A.38 - 38 weeks gestation of COMMENT: GBS NEG, high risk NIPT due to DNA fraction MFM referral sent, Carrier neg. , nl GCT. nl anatomy (4) Supervision of normal first : COMMENT: PRR , THOMAS 08/21/22, boy BF - Pernell (5) Obesity affecting : COMMENT: 1 TM GCT (6) Abnormal genetic test during : COMMENT: high risk fraction, declines invasive genetic testing. recommend weekly nsts after 32 and growth us q 4 weeks,07/06 nl growth-48% (7) Marginal insertion of umbilical cord: COMMENT: weekly nsts. growth us q 4 weeks. (8) PUPP (pruritic urticarial papules and plaques of ): COMMENT: rash just abdomen. Labs nl (9) Pyelonephritis affecting : COMMENT: afebrile, VSS obtaining CBC and renal ultrasound.ultrasound negative for calculi. s/p tylenol and pyridium 2g ancef, will transition to keflex outpatient. (10) Gallbladder sludge: COMMENT: low fat diet nutrition consult. (11) Vaginal delivery: COMMENT: KW/SM 39 IOL abnl NIPT boy Singh Maternal Data Information THOMAS Calculator Estimated Delivery Date Method Current WG Current Estimate 08/21/22 LMP (Certain) 39w 2d Other Estimates 08/17/22 Ultrasound #1 39w 6d Vaginal Delivery Operative Information Date of Procedure: 08/16/22 Pre-Operative Diagnosis: see a/p diagnoses Post-Operative Diagnosis: same Surgery / Procedure Performed: Spontaneous Vaginal Delivery Type of Anesthesia: Epidural Special Medications: none Estimated Blood Loss: 300 Fluids Replaced: crystalloid Findings Description of Procedure: Patient began pushing and delivered the head in the DANNIELLE presentation. The head was delivered atraumatically . The anterior and posterior shoulders delivered without complication followed by the rest of the and the was kimberly lluvia on the maternal abdomen. Delayed cord clamping was employed for approximately 60 seconds. Cord was clamped and cut and gentle traction was applied to the cord and the placenta delivered spontaneously immediately following it was noted to be intact with three-vessel cord. The perineum and vagina were inspected and noted to have a second degree perineal laceration which was repaired in the usual fashion with 3-0 vicryl rapide.. EBL was 300. Patient and infant tolerated delivery well. Amniotic Fluid Description: Thick meconium Placental Delivery Description: Spontaneous Placenta Disposition: [facility] Cord Vessel Description: 3 Vessels Cord Entanglement: None Delayed Cord Clamping: Yes Post Vaginal Delivery Medications Given After Delivery: IM Pitocin Episiotomy Description: None Laceration: Perineal Extension/lac and 2nd degree Complication Complications: None Procedures Urinary/Genital 52xxx-59xxx: [id number] Vaginal Delivery [facility]
--- NOTE | 2022-08-16 22:35 | DCINST_ITS ---
Discharge Instructions Diet Discharge Diet: No restrictions Activity Discharge Activity: Return to Normal Activity, May Drive, May Shower and May Take a Tub Bath (in 4 weeks) May resume sexual activity in: 6-8 weeks (after seen by OB provider) Weight Bearing Status: Full weight bearing Lifting Restrictions: none Dressing / Incision Call your doctor if you observe: Fever of 101 or Higher, Inability to urinate, Using more than 1 pad per hour (for more than 2 hours in a row or more), Shortness of breath, Dizziness, Chest pain and - (headache not controlled with tylenol, change in vision) Follow Up Care When: in 6 weeks for visit, call the office to make the appointment. If you had elevated blood pressures call the office to be seen within 1 week. Test Results: Test results from this visit will be discussed in further detail at your follow- up appointment, if applicable. Discharge Plan Admission Admit Date/Time: 08/16/22 07:20 Attending Provider: Penelope Yang Primary Care Provider: Care Physician,Michelle Primary Discharge Orders/Prescriptions Prescriptions: No Action PNV no.[id number] 400 mcg-35 mg- 25 mg-5 mg tablet,chewable 1 tab PO DAILY Referrals / Follow Up: Care Physician,No Primary [Primary Care Provider] - Disposition Disposition (needs filled in before D/C Order can be placed): Home, Self Care
[2022-08-17] VITALS (10 sets, daily range): BP systolic 102–117; BP diastolic 48–61; PULSE 78–112; RESP 16–20; TEMP 36.5–36.8; O2SAT 94–97
[2022-08-17] MEDS: 0.9% Saline Lock 10 ML Syringe IV (01:40)
[2022-08-17] MEDS: Naproxen 500 MG Tablet PO ×2 (04:05→11:41)
[2022-08-17] MEDS: Benzocaine/Lanolin/Aloe Vera 1 SPRAY EACH TOPICAL (08:32)
--- NOTE | 2022-08-17 08:33 | PCM.PN.OB ---
Subjective Subjective Patient doing well without complaints. Tolerating PO. Ambulating and voiding without difficulty. Feeding well. Denies chest pain, shortness of breath, calf pain/swelling, fevers, chills, lightheadedness. Objective Data Objective Data Vital Signs: Vital Signs Temp Pulse Resp BP Pulse Ox O2 Del Method 97.7 F L 87 16 109/61 97 Room Air 08/17/22 04:08 08/17/22 04:08 08/17/22 04:05 08/17/22 04:08 08/17/22 04:08 08/17/22 04:05 Oxygen Delivery Method Room Air Weight: 230 lb Body Mass Index (BMI) 40.7 Intake & Output: Intake and Output for Last 24 Hours 08/15/22 08/16/22 08/17/22 23:59 23:59 23:59 Intake Total 3231.79 / 3231.79 250 / 250 Output Total 1100 / 1100 1620 / 1620 Balance 2131.79 / 2131.79 -1370 / -1370 Lab / Micro Data Result Diagrams: 08/16/22 08:20 Labs: Laboratory Results - last 24 hr 08/16/22 08:20: WBC 11.7 H, RBC 4.50, Hgb 13.2, Hct 39.3, MCV 87.3, MCH 29.3, MCHC 33.6, RDW Std Deviation 43.2, RDW Coeff of Tk 13.7, Plt Count 226, MPV 12.4 H, Immature Gran % (Auto) 0.400, Neut % (Auto) 70.3 H, Lymph % (Auto) 21.7, [place] % (Auto) 6.8, Eos % (Auto) 0.5, Baso % (Auto) 0.3, Absolute Neuts (auto) 8.2 H, Absolute Lymphs (auto) 2.54, Nucleated RBC % 0 08/16/22 08:20: Blood Type A POSITIVE, Antibody Screen NEGATIVE 08/16/22 08:20: Syphilis Total Ab Non-reactive Physical Exam Const alert, oriented x3 and no apparent distress Eyes PERRL Neck full ROM Chest inspection of chest normal Resp normal respiratory effort, normal air movement and no retractions Cardio regular rate and regular rhythm GI GI Narrative: fundus firm, 1below u, moderate lochia. no clots Back/Spine normal ROM Extremity normal to inspection and full ROM Skin no rashes or lesions noted Psych mental status grossly normal Assessment & Plan (1) Vaginal delivery: COMMENT: KW/SM 39 IOL abnl NIPT boy Singh PLAN: s/p PPD # 1 1. routine post delivery care 2. breast feeding- support given 3. rh positive 4. rubella immune 5. in [place] care nursery, emotional support provided.
--- NOTE | 2022-08-17 10:35 | NURSING ---
1035- IBCLC in room to assist MOB with pumping. Nursing was going well initially after delivery per reports of nursing staff and MOB. MOB able to hand express colostrum easily. Infant was 39 weeks gestation, but ended up in SCN d/t jitteriness and hypoglycemia. MOB resting when nursing staff tried to go over pump. IBCLC in room and MOB had napped and eaten breakfast and was ready to review pump. IBCLC educated patient on pump parts, use of hospital grade breast pump, and milk storage. MOB pumped for 15 minutes on speed 80, suction 30. 3cc of colostrum and a swab were collected, labeled, and taken to SCN. MOB encouraged to rest, and pump again at or around 1330. Family denies questions on pump at this time. Education provided on lactogenesis, supply and demand of breast milk, and general feeding education.
--- NOTE | 2022-08-17 16:26 | CASEMGMT ---
Social Work Brief Assessment Labor and Delivery Unit Patient Address: [address] [place] [address] [address], [place] [address] Phone number: [phone] Date of Referral/Notification: 08/17/2022 Time of Referral: [phone] Referred By: Social work identification Date of Intervention: 08/17/2022 Time of Intervention: Approximately [id number] Reason for Referral: admitted into the [facility] nurse Informant: Medical record and mother of baby (MOB) Claudia Lozada; father of baby (FOB) Pernell Carias present for part of conversation as well as MOB's mother. Educated MOB and family that this functional tester typewriters is the social science manager for [facility] for continuity of care families admitted into the special care nursery, is also assigned as the social science manager for the special care nursery. History: ROMAIN is a 26-year-old single female, involved with the FOB since August 2014. During private conversation with the MOB, MOB denied any type of domestic violence or intimate partner violence concerns with the FOB. MOB and FOB currently lives with MOB's parents and are in the process of building a new home which is slated to be ready in November 2022. infant is the first child for both parents. [place] is to be named Singh Carias (08/16/2022). Singh delivered at 39.2 weeks gestation. Apgars 8 and 9 at 1 and 5 minutes of life respectively. weight 7 pounds 3 ounces. Infant transferred into the [facility] nursery for hypoglycemia issues. MOB denies any personal history of mental health issues. Reports there is a family history of some depression, anxiety, and ROMAIN's mother had some depression. MOB denies any history of suicidal ideation or attempts. MOB denies any substance use issues for self or FOB. Maternal drug screen was negative on 01/20/2022. 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 FOB works in the [employer] business. No reported issues with reading, writing, or learning for either parent. Assessment: Met with MOB and MOB's mother in room, introducing to self and role. FOB later joined and did introductions again. Completed assessment with everybody together but then asked for some private time to complete the [place] depression screen. MOB had a score of 2 related to some overthinking and worrying in the last day or 2, since baby went to the special care nursery. During private conversation MOB denied any type of safety concerns in the home. MOB reports to feel she has a good support system from the FOB and MOB's parents, grandmother, and FOB's mother. Deny any concerns with housing, the environment, or meeting basic needs. Educated MOB and family to mood and anxiety disorders, risk factors, and importance of seeking out help and support should symptoms arise and/or become distressing. Educated to WIC and help me grow. MOB interested in information on WIC and declined referral to help me grow. No other reported agency involvement other than job and family services for Medicaid. Parents deny any other needs or concerns at this time. MOB and FOB both teary-eyed when talking about the baby and being happy about having the baby. Parents receptive, pleasant and engaged in discussion with social science manager.?? Plan: MOB will discharge home when medically ready. Social work will follow the family from the special care nursery. Packet provided to MOB on [facility] as well as a packet on mood and anxiety disorders. No further needs requested or indicated. -TIMI De León, HUMBERTO *This note was generated with [employer] dictation software. It may contain incorrect words, spelling, and punctuation that were not noted in review of the chart prior to signing*
[2022-08-18 02:40] VITALS: BP 99/58; PULSE 83; RESP 14; TEMP 36.6
--- NOTE | 2022-08-18 07:52 | PCM.PN.OB ---
Subjective Subjective Patient doing well without complaints. Tolerating PO. Ambulating and voiding without difficulty. Feeding well. Denies chest pain, shortness of breath, calf pain/swelling, fevers, chills, lightheadedness. Baby in SCN, glucose issue but improving Objective Data Objective Data Vital Signs: Vital Signs Temp Pulse Resp BP Pulse Ox O2 Del Method 98 F 83 14 99/58 L 97 Room Air 08/18/22 02:40 08/18/22 02:40 08/18/22 02:40 08/18/22 02:40 08/17/22 04:08 08/18/22 02:40 Oxygen Delivery Method Room Air Weight: 230 lb Body Mass Index (BMI) 40.7 Intake & Output: Intake and Output for Last 24 Hours 08/16/22 08/17/22 08/18/22 23:59 23:59 23:59 Intake Total 3231.79 / 3231.79 250 / 250 Output Total 1100 / 1100 1620 / 1620 Balance 2131.79 / 2131.79 -1370 / -1370 Lab / Micro Data Result Diagrams: 08/16/22 08:20 Physical Exam Const alert and oriented x3 HEENT normocephalic Eyes PERRL Neck full ROM Resp normal respiratory effort GI soft to palpation GI Narrative: FF below U Assessment & Plan (1) Vaginal delivery: COMMENT: KW/SM 39 IOL abnl NIPT boy Singh PLAN: Plan s/p PPD # 2 1. routine post delivery care 2. breast feeding- support given 3. rh positive 4. rubella immune 5. hotel status today
[2022-08-18 09:30] VITALS: BP 101/53; PULSE 92; RESP 16; TEMP 36.5; O2SAT 97
== END 2022-08-18 10:04 | disposition home or self-care (01) | DRG 560 ==
PROVIDERS: Admitting Provider Advanced Practice Midwife; Visit Provider Obstetrics & Gynecology
DX: O99.214 Obesity complicating childbirth (principal); Z37.0 Single live birth; O76 Abnormality in fetal heart rate and rhythm complicating labor and delivery; O77.0 Labor and delivery complicated by meconium in amniotic fluid; O70.1 Second degree perineal laceration during delivery; Z3A.38 38 weeks gestation of pregnancy
CPT/HCPCS: 59025; 59050; 85025; 86780; 86850; 86900; 86901; 99221; J7120; A4216; G0378

== ENCOUNTER 2023-03-02 09:09 | Day surgery (SDC) | payer MEDICAID, SELFPAY ==
[2023-03-02] VITALS (10 sets, daily range): BP systolic 118–138; BP diastolic 59–88; PULSE 68–92; RESP 16–18; TEMP 36.2–36.8; O2SAT 95–100; BMI 40.0
--- NOTE | 2023-03-02 | GALL_PTH ---
PATIENT: JOJO PELAEZ LOC: [facility] U#:[id number] AGE/SX: 27/F ROOM: RE03/02/[address]: Dr. Christal Mccall MD : 1995 BED: DIS: 03/02/2023 SPEC #: [id number] RECD: 03/02/23 14:08 STATUS: ABDON REZheng #: [id number] RUSTY: 03/02/23 00:[address]: Christal Mccall DEPT: SURGICAL PATHOLOGY RECD BY: Johanna Jackman ENTERED: 03/02/23 14:09 SP TYPE: SHILPI HYMAN DR: No Primary Care Phys Tissues: Gallbladder, NOS Procedures: Surgery Specimen Level III HEADER OPERATION: Laparoscopic cholecystectomy with IOC PRE-OP DIAGNOSIS: Gallbladder sludge, cholelithiasis TISSUE SUBMITTED: Gallbladder MICROSCOPIC DIAGNOSIS Gallbladder, cholecystectomy: Chronic cholecystitis, cholelithiasis and cholesterolosis. SJ:augustine 03/03/2023 MICROSCOPIC DESCRIPTION Slides are reviewed. GROSS DESCRIPTION Received is one container labeled with the patient's name and designated gallbladder. The specimen consists of a gallbladder measuring 8.0 cm in length and up to 4.0 cm in diameter. The external surface is pink-purvis, smooth and glistening for the most part. Focally it is granular, hemorrhagic and contains cautery artifact. The gallbladder contains green-yellow mucoid bile and multiple ygcndcyg-vlpspvbb-eeufi stones and stone fragments measuring in aggregate 2.0 x 1.0 x 0.4 cm and 0.1 to 0.3 cm in greatest dimension. The mucosa is bile-stained and without any mass lesions. The gallbladder wall measures up to 0.2 cm in thickness. The mucosa also shows several yellowish streaks consistent with cholesterolosis. Efficiency Analyst sections from the gallbladder and the cystic duct are submitted in one cassette. / SJ:rg 03/02/2023 TC:3 CPT: 68222
--- NOTE | 2023-03-02 09:45 | RAD_ITS ---
STUDY: INTRAOPERATIVE GLANDULAR. REASON FOR EXAM: Female, 27 years old. Laparoscopic cholecystectomy. FLUOROSCOPY TIME (if supplied): ( 19.8 seconds ) minutes/seconds. 15.25 mGy TECHNIQUE: An intraoperative Cholangiogram was performed by the surgeon. Imaging was submitted. COMPARISON: None. FINDINGS: The visualized intra and extrahepatic biliary ducts are unremarkable. No intraluminal filling defect is seen. Free flow of contrast is seen in the duodenum. RAD/Cholangiogram/ O R,Initial IMPRESSION: Unremarkable intraoperative cholangiogram. Electronically Signed: José Lowry MD at 10:28 EDT ,
[2023-03-02] MEDS: Lactated Ringers 1,000 ML 15 ML IV ×2 (09:51→13:20)
[2023-03-02 09:54] LABS: Internal QC Validated? YES +Cl - CLEAR BKGD; Pregnancy, Urine Negative Negative; Record Kit Lot#,Urine Preg 667200
--- NOTE | 2023-03-02 10:32 | HP.PCM_ITS ---
History and Physical Date of Admission: 03/02/23 Date of Service: 02/11/23 MR#: [id number] Acct: [id number] Name: JOJO PELAEZ Rep #: [id number] : 1995 Provider: Dr. Christal Mccall MD Age/Sex: 27/F Location: [facility] Status: Signed Intake Vital Signs 10/05/2312:08 02/11/2310:06 Height 5 ft 3 in 5 ft 3 in Weight: 220 lb 226 lb 8 oz BMI 38.9 40.1 BP 110/75 120/81 H Blood Pressure Location Rt brachial Rt brachial Position Sitting Sitting Respiration 17 17 Pulse 80 81 Pulse Source Monitor Monitor Temp 97.3 F L 96.7 F L Temp Source Temporal Temporal Pulse Oximetry (%) 98 97 Oxygen Delivery Method room air room air Intake Visit Reasons: UPDATE H&P Chief Complaint: gall bladder sludge Update H&P Is patient in pain?: No Allergies No Known Allergies Allergy (Verified 02/11/23 10:08) Medications PNV 153-FA 400 mcg-om3 35 mg-dha 25 mg-epa 5 mg-fish oil chew tablet 1 tab PO DAILY Check with primary doctor 01/13/22 [History Confirmed 02/11/23] cholecalciferol (vitamin D3) 25 mcg (1,000 unit) capsule 25 mcg PO DAILY 10/05/22 [History Confirmed 02/11/23] folic acid 800 mcg tablet 0.8 mg PO DAILY 10/05/22 [History Confirmed 02/11/23] zinc citrate 11 mg chewable tablet mg PO 10/05/22 [History Confirmed 02/11/23] PFSH Medical History Vaginal delivery Surgical History History of surgery History of surgery History of surgery Family History Mother AsthmaGrandfather Heart disease Hypertension CVA (cerebral vascular accident) Thyroid disorder Social History adopted: No household members: significant other and family housing: house current occupational status: employed 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 current occupational exposures/hazards: No pets and animals: Yes pets and animals: dog(s) history of recent travel: No sexually active: Yes Smoking Status: Never smoker second hand exposure: No alcohol intake: former details: rarely socially- Not while substance use type: does not use well-balanced diet: daily or most days caffeine: Yes Type: coffee Number of servings: 1 eating out: 1-3 times/week during the past year weight has: decreased > 10 lbs what type of physical activity do you participate in: none ronn/mu-ism: None seatbelt use: always do you feel safe at home: Yes additional social history: Boyfriend Pernell- Pest Control HPI HPI HPI: 27-year-old female presents due to right upper quadrant pain episodes. Patient was previously seen in September and offered a cholecystectomy at that time had other patient had other things going on in her life at that time. Patient states she has had multiple episodes since in October she did go to the ER at [facility] and it was given some pain meds which she had used about every month that she has had episodes she states only takes about 1 pill of the OxyContin to help. Patient has still been having some creamer in her coffee and eating some peanut butter. Patient's previous ultrasound showed Rosalind lithiasis. Patient's repeat at the ER per the report shows cholelithiasis, no pericholecystic fluid, wall thickening but does not state that thickness of the wall except for its mild and contracted and a negative date of Dixon sign within normal common bile duct. Patient had normal LFTs at the time of her ER visit in October. Patient states she does get nauseous with these episodes of occasional vomiting. Currently denies any nausea or vomiting or abdominal pain. ROS General General: No weight change, appetite, fatigue, colon cancer, breast cancer or weakness HEENT HEENT: No difficulty swallowing, eye injury, eye surgery, swollen glands or hoarseness Endo Endocrine: No thyroid disease, diabetes mellitus, thyroid cancer, Hair loss, heat intolerance or cold intolerance Skin Skin: No rash or changing moles Musc Musculoskeletal: Yes back problems; No arthritis, rheumatoid arthritis, gout or joint pain Cardio Cardiovascular: Yes murmur; No pacemaker, heart disease, atrial fibrillation, high blood pressure, heart attack, heart stent, palpitations, shortness of breat with exertion or chest pain Psych Psychiatric: No depression, anxiety or hearing voices Resp Respiratory: No shortness of breath, No sleep apnea, No cough, No COPD, No asthma, No emphysema and No wheezing Gastro Gastrointestinal: Yes abdominal pain, Yes nausea or vomiting, No diarrhea, No constipation, No blood in stool, No acid reflux, No hemorrhoids, No ulcers, Yes gallbladder problem and No black,tarry stools Christoph Hematologic: No blood thinners, No blood disorders, No bleeding, No anemia and No blood clots Neuro Neurologic: No system reviewed and no additional complaints, except as documented, No as per HPI, No abnormal gait, No abnormal hearing, No abnormal movements, No abnormal speech, No behavioral changes, No burning sensations, No confusion, No convulsions, No disequilibrium, No dizziness, No localized weakness, No frequent falls, No headache(s), No lack of coordination, No loss of vision, No memory loss, No numbness, No other visual disturbances, No radicular pain, No restless legs, No sensory deficit, No syncope, No tingling, No tremor(s), No weakness and No other Exam Const General: cooperative, healthy appearing, comfortable and no acute distress Neck Neck: normal visual inspection Resp Effort & Inspection: normal respiratory effort Cardio Rate: regular rate GI Inspection: non-distended Palpation: soft, no guarding and nontender Skin General: no rashes or lesions noted Neuro General: patient oriented x3 Psych Affect: normal affect Assessment and Plan Assessment and Plan (1) Gallbladder sludge: Status: Acute (2) Cholelithiasis: Status: Acute Plan Recommend patient stay away from creamer any amount pain better fatty greasy foods until surgery. Surgery is scheduled for March 02 which works for the patient. Reviewed the anatomy with the patient and discussed the procedure: laparoscopic cholecystectomy with possible cholangiograms, possible open. Review risks including but not limited to bleeding, infection, hernia, bile leak, retained gallstones requiring another procedure ERCP- Endoscopic Retrograde Cholangiopancreatography, injury to another organ (bile ducts, common bile duct, small bowel, etc.) and conversion to an open procedure. All questions were answered. Christal Mccall M.D. Pager: [phone] [facility] [address] [place] [address], [address] [place] [address] Office: [phone] Coding Level of Care Code Off vis,est,level 3 Diagnoses Gallbladder sludge K82.8 Cholelithiasis K80.20 02/12/23 1156 <Electronically signed by Christal Mccall MD> Date Christal Mccall MD
[2023-03-02] MEDS: Cefazolin 2 GM in 0.9% Normal Saline (100mL Bag) 100 ML IV (10:52)
--- NOTE | 2023-03-02 12:23 | PCM.OPRPT ---
Report of Operation Date of Procedure: 03/02/23 Pre-Operative Diagnosis: Cholelithiasis Post-Operative Diagnosis: Same Surgery/Procedure Performed:: Laparoscopic cholecystectomy with cholangiograms Surgeon: Christal Mccall assistant professor of drama: Corey Cullen Type of Anesthesia: General/Supplemental Anesthesiologist: Keshawn Kitchen Special Medications: Ancef 2 g IV x1 Specimen's removed: Gallbladder Estimated Blood Loss (mL): 10 cc Description of Procedure: Indications: this is a 27 year-old female who developed abdominal pain/nausea/vomiting and on workup was found to have cholelithiasis, with a normal common bile duct. Laparoscopic cholecystectomy was elected. Description procedure: The patient was placed on operating table in supine position. A timeout was completed verifying correct patient, procedure, site, position and special equipment prior to beginning procedure. General Anesthesia was induced. The abdomen was prepped and draped in usual sterile fashion. An incision was made in the natural skin line above the umbilicus. The fascia was elevated and incised. The peritoneum was elevated and incised. Entry into the peritoneum was confirmed visually and no bowel was noted in the vicinity of the incision. Lipscomb trocar was placed. The abdomen was insufflated with carbon dioxide to a pressure of 12-15 mmHg. Patient tolerated insufflation well. The laparoscope was then inserted and abdomen inspected. No injuries from initial trocar placement were noted. Additional trochars were then inserted in the following locations 5 mm trocar in the epigastrium and 2 more 5 mm trochars along the right costal margin. The abdomen was inspected no abnormalities were found. The table is placed in reverse Trendelenburg position with the right side up. The dome of the gallbladder was grasped with atraumatic grasper passed through the lateral port and retracted over the dome of the liver. Infundibulum was then grasped with atraumatic grasper through the midclavicular port and retracted to the right lower quadrant. This maneuver exposed Calot's triangle. The peritoneum overlying the gallbladder infundibulum was then incised and cystic duct and artery identified and circumferentially dissected. Ramirez catheter was used for cholangiograms. The cholangiogram showed good filling of the common bile duct into the duodenum with no filling defects, good filling right and left bile ducts. The cystic duct and artery were then doubly clipped and divided close to the gallbladder. The gallbladder then dissected from its peritoneal attachments by electrocautery. Hemostasis was checked and the gallbladder and contained stones were removed using the endoscopic retrieval bag through the umbilical port. The gallbladder is passed off table as specimen. The gallbladder fossa was irrigated with saline and hemostasis obtained. There is no evidence of bleeding from the gallbladder fossa or cystic artery leakage of bile from the cystic duct stump. Secondary trochars removed under direct vision. No bleeding was noted the trocar sites. The laparoscope was withdrawn and umbilical trocar removed. The abdomen was allowed to collapse. The fascia of the 12 mm trocar was closed with a [id number] 0 Vicryl suture. The skin was closed with sutures of 4-0 Monocryl and Steri-Strips. The patient was extubated. The patient tolerated procedure well and was taken to the postanesthesia care unit in stable condition. Complications none
--- NOTE | 2023-03-02 12:25 | DCINST_ITS ---
Discharge Instructions Diet Discharge Diet: Light diet - advance as tolerated Activity Discharge Activity: May Not Drive (while taking narcotic pain medications.) May shower in (days): 1 Lifting Restrictions: no lifting >20 lbs x 2 wks, no strenuous exercise for 4 wks Dressing / Incision Call your doctor if your incision/area has: Continuous Slow Oozing, Sudden Increased Bleeding, Increased Pain/ Swelling, Increased Redness, Foul Smelling Discharge and Swelling at the incision site Call your doctor if you observe: Fever of 101 or Higher Remove Dressing in: 2 days Cleanse incision/area with: Soap & Water Additional Dressing/Incision Instructions:: Steri-Strips will fall off in 7 to 10 days, if they do not fall off okay to remove after 10 days. Follow Up Care Please Follow Up With: Christal Mccall MD When: Call the office for a follow-up appointment 2 weeks; after 5 PM and on the weekends call [phone] with any concerns. Test Results: Test results from this visit will be discussed in further detail at your follow- up appointment, if applicable. Discharge Plan Admission Attending Provider: Christal Mccall Primary Care Provider: Care Physician,No Primary Instructions Additional Instructions / Restrictions: Okay to take ibuprofen 400-600 mg PO q6hr PRN along with the Percocet. Avoid Tylenol since there is already Tylenol in the Percocet. Take all pain meds with food. Percocet can cause constipation recommend taking daily stool softener (i.e. Colace/docusate) while taking the pain meds. Recommend starting some MiraLAX in 1-2 days if no bowel movement. If still no bowel movement the next day recommend taking magnesium citrate half the bottle and waiting 4-6 hours if still no results take the other half the bottle. Discharge Orders/Prescriptions Prescriptions: New oxycodone-acetaminophen 5-325 mg tablet 1 - 2 tab PO Q6H PRN (Reason: pain) 3 Days Qty: 14 0RF Continued folic acid 800 mcg tablet 0.8 mg PO DAILY cholecalciferol (vitamin D3) 25 mcg (1,000 unit) capsule 25 mcg PO DAILY magnesium 200 mg tablet 200 mg PO DAILY ascorbic acid (vitamin C) [C-500] 500 mg tablet 500 mg PO DAILY omega-3 fatty acids Capsule 500 mg PO DAILY Referrals / Follow Up: Care Physician,No Primary [Primary Care Provider] - Disposition Disposition (needs filled in before D/C Order can be placed): Home, Self Care
[2023-03-02] MEDS: Bupivacaine Mpf 0.5% 30 ML VIAL (12:27)
[2023-03-02] MEDS: Acetaminophen 325 MG Tablet PO (15:01)
[2023-03-02] MEDS: oxyCODONE 5 MG Tablet PO (15:01)
== END 2023-03-02 16:49 | disposition home or self-care (01) ==
LOC: SDC 09:10 → AC 09:11
PROVIDERS: Anesthesiology; Referring Provider Surgery; Visit Provider Surgery
PROC: (CPT 47610; principal; 2023-03-02 10:25)
DX: K80.10 Calculus of gallbladder with chronic cholecystitis without obstruction (principal); K82.8 Other specified diseases of gallbladder
CPT/HCPCS: 47563; 00790; 74300; 76000; 81025; 88304; 93005; J7120; J2405

== ENCOUNTER 2023-03-12 14:17 | Emergency (ER) | payer MEDICAID, SELFPAY ==
[2023-03-12 14:17] VITALS: BP 128/76; PULSE 102; RESP 18; TEMP 36.3; O2SAT 100; BMI 40.0
[2023-03-12 14:48] LABS: Absolute Lymphocyte Count 2.17 X10^3/uL (0.83-4.51); Absolute Neutrophil Count 13.4 X10^3/uL (2.0-7.7); Basophil# 0.07 X10^3/uL; Basophil% 0.4 % (0-1); Eosinophil# 0.17 X10^3/uL; Hematocrit 42.3 % (37-47); Lymphocyte # 2.17 X10^3/ul (0.83-4.51); Lymphocyte % 12.8 % (19-41); Mean Corp Hgb Conc 33.1 g/dL (32-36); Mean Corpuscular Hgb 28.5 pg (27.0-32.0); Mean Platelet Vol. 10.5 fl (6.2-12.0); Monocyte# 1.04 X10^3/uL; Monocyte% 6.1 % (0-10); NRBC Flagged by Analyzer 0 % (0-5); Neutrophil # 13.43 X10^3/uL (2.7-7.7); Neutrophil % 79.3 % (47-70); Platelet Count 330 K/mm3 (150-450); RBC Distribution Width CV 12.6 % (11.6-14.6); RBC Distribution Width SD 39.1 fl (35.1-43.9); Red Blood Count 4.92 M/mm3 (4.2-5.4); White Blood Count 16.9 K/mm3 (4.4-11.0)
--- NOTE | 2023-03-12 14:51 | EDS_ITS ---
HPI History of Present Illness Chief Complaint: Abd Pain [facility] Medical History (Updated 03/12/23 @ 17:[address] Jaylan Pedroza, DO) Non-smoker Vaginal delivery Wears contact lenses Wears glasses Home Medications cholecalciferol (vitamin D3) 25 mcg (1,000 unit) capsule 25 mcg PO DAILY 10/05/22 [History Last Taken Unknown] folic acid 800 mcg tablet 0.8 mg PO DAILY 10/05/22 [History Last Taken Unknown] ascorbic acid (vitamin C) 500 mg tablet (C-500) 500 mg PO DAILY 02/23/23 [History Last Taken Unknown] magnesium 200 mg tablet 200 mg PO DAILY 02/23/23 [History Last Taken Unknown] omega-3 fatty acids 500 mg PO DAILY 02/23/23 [History Last Taken Unknown] oxycodone-acetaminophen 5 mg-325 mg tablet 1 - 2 tab PO Q6H PRN pain 3 days #14 tabs 03/02/23 [Rx Last Taken Unknown] amoxicillin 875 mg-potassium clavulanate 125 mg tablet 1 tab PO BID #14 tabs 03/12/23 [Rx Last Taken Unknown] ondansetron 4 mg disintegrating tablet 4 mg PO Q8H PRN PRN Nausea #10 tabs 03/12/23 [Rx Last Taken Unknown] oxycodone 5 mg capsule 5 mg PO Q6H PRN pain 5 days #20 caps 03/12/23 [Rx Last Taken Unknown] Allergy/AdvReac Type Severity Reaction Status Date / Time No Known Allergies Allergy Verified 03/12/23 14:20 Family History Mother Asthma Grandfather Heart disease Hypertension CVA (cerebral vascular accident) Thyroid disorder Surgical History History of surgery History of surgery History of surgery Social History adopted: No household members: significant other and family housing: house current occupational status: employed 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 current occupational exposures/hazards: No pets and animals: Yes pets and animals: dog(s) history of recent travel: No sexually active: Yes Smoking Status: Never smoker second hand exposure: No alcohol intake: former details: rarely socially- Not while substance use type: does not use well-balanced diet: daily or most days caffeine: Yes Type: coffee Number of servings: 1 eating out: 1-3 times/week during the past year weight has: decreased > 10 lbs what type of physical activity do you participate in: none ronn/presybeterian: None seatbelt use: always do you feel safe at home: Yes additional social history: Boyfriend Pernell- Pest Control EXAM Physical Exam Const Vital Signs: 03/12/23 14:17 Temperature 97.4 F L Temperature Source Temporal Pulse Rate 102 H Respiratory Rate 18 Blood Pressure 128/76 H Blood Pressure Mean 93 Pulse Ox 100 Oxygen Delivery Method Room Air MDM MDM MDM Narrative Medical decision making narrative: HISTORY OF PRESENT ILLNESS: 27-year-old female here with right upper quadrant pain. She states she had her gallbladder out on 1016 and ate food approxi-1 hour prior to arrival and developed severe pain. She further states pain is severe constant nonradiating. Denies changes to her bowel or bladder habits. Denies any fever. REVIEW OF SYSTEMS: Pertinent positives: Abdominal pain nausea Pertinent negatives: Fever, vomiting or urinary symptoms PHYSICAL EXAM: Nursing triage notes reviewed, Vital signs reviewed Constitutional: please see mdm HENT: MMM Eyes: Pupils equal round and reactive to light, Extraocular muscles intact Neck: No stridor, no JVD, full neck ROM Lungs: Clear to auscultation, No wheezing or rales. No increased work of breathing, no conversational dyspnea, no accessory muscle use, no nasal flaring. No respiratory distress noted Heart: Regular rate and rhythm, No murmurs, No rubs and No gallops, 2+ distal pulses (radial, femoral, posterior tibial) in all extremities Abdomen: Soft, there is no tenderness, rigidity, rebound or guarding, no obvious peritoneal signs, no palpable pulsatile abdominal masses, no auscultated abdominal bruit : No CVAT Extremities: No edema Neuro: No focal neurological deficits, cranial nerves II through XII intact, 5/5 strength in all extremities. Intact sensation to light touch in all extremities, 2+ reflexes bilateral patella tendons. Normal gait. No ataxia. Skin: No rash or lesions noted MEDICAL DECISION MAKING: Chief Complaint: Abdominal pain External records reviewed: Status post laparoscopic cholecystectomy on 03/02 Factors affecting care: Status post cholecystectomy Social determinants of health: none History obtained from others: Patient's family Consults: General surgery MDM Narrative: Hemodynamically stable, afebrile, nontoxic-appearing. Exam she is tender to palpation but no obvious peritoneal signs. I considered the following differential diagnosis: Postop complication, postop pain, intra-abdominal abscess or infection ALL IMAGES (IF OBTAINED) HAVE BEEN PERSONALLY REVIEWED AND INTERPRETED BY MYSELF. CBC with leukocytosis suggestive of systemic inflammation, no anemia or thrombocytopenia noted CMP without significant electrolyte abnormalities, no anion gap, no CARISSA LFTs show no evidence of hepatobiliary pathology. Lipase is wnl indicating no pancreatic inflammation. test is negative Urinalysis shows no evidence of urinary inflammation suggestive of UTI Scan abdomen/pelvis shows no evidence of acute surgical process. Noted stranding and fluid in the gallbladder fossa but no obvious abscess. Call to general surgery spoke to Dr. Chapa. He recommended against surgical intervention at this time. He recommended discharge with oral antibiotics given elevated white blood cell count ongoing pain. Also re commended giving pain medication. The patient and/or family, caregivers express understanding. The patient and/or family, caregivers agrees with the plan. Shared decision making: I will have a discussion with the patient and or visitors regarding risk/benefits of further testing or admission. They will be made aware of of the risk/benefits inherent in this decision they will be given the opportunity to voice understanding. Total critical care time today provided was at least 0 minutes. This excludes separately billable procedures. Critical care time (if documented) is secondary to the patient having high probability of clinically significant/life threatening deterioration in the patient's condition which required my urgent intervention. Impression: 1. Abdominal pain 2. Post-op pain 3. Leukocytosis Dispo: discharge Lab Data Labs: Laboratory Results - last 24 hr 03/12/23 03/12/23 14:44 15:46 WBC 16.9 H RBC 4.92 Hgb 14.0 Hct 42.3 MCV 86.0 MCH 28.5 MCHC 33.1 RDW Std Deviation 39.1 RDW Coeff of Tk 12.6 Plt Count 330 MPV 10.5 Immature Gran % (Auto) 0.400 Neut % (Auto) 79.3 H Lymph % (Auto) 12.8 L [place] % (Auto) 6.1 Eos % (Auto) 1.0 Baso % (Auto) 0.4 Absolute Neuts (auto) 13.4 H Absolute Lymphs (auto) 2.17 Nucleated RBC % 0 Sodium 139 Potassium 3.5 Chloride 106 Carbon Dioxide 24.0 Anion Gap 9 BUN 20 H Creatinine 1.00 Estim Creat Clear Calc 69.90 Est GFR (MDRD) Af Amer 86 Est GFR (MDRD) Non-Af 71 BUN/Creatinine Ratio 20.0 Glucose 120 H Calcium 8.9 Total Bilirubin 0.60 AST 43 H ALT 36 Alkaline Phosphatase 91 Total Protein 7.6 Albumin 3.6 Globulin 4.0 Albumin/Globulin Ratio 0.9 Lipase 50 Serum , Qual NEGATIVE Urine Color Yellow Urine Clarity Clear Urine pH 7.0 Ur Specific [place] 1.005 Urine Protein Negative Urine Glucose (UA) Normal Urine Ketones Negative Urine Occult Blood Negative Urine Nitrite Negative Urine Bilirubin Negative Urine Urobilinogen Normal Ur Leukocyte Esterase Negative Urine RBC 0 SEEN Urine WBC 0 SEEN Ur Squamous Epith Cells 0-5 SEEN Urine Bacteria 0 SEEN Urine Mucus 0 SEEN Radiography Diagnostic Testing: Clinical Impression(s) from Imaging Studies Abdomen/Pelvis CT 03/12/23 15:00 IMPRESSION: Status post cholecystectomy with fluid and stranding in the gallbladder fossa. No discrete fluid collection. No bowel obstruction or inflammation. Normal appendix. Normal kidneys. No hydronephrosis. Electronically Signed: Robe Nails MD at 16:03 EDT , Discharge Plan Triage Chief Complaint: Abd Pain ED Provider: Jaylan Pedroza Dx/Rx/DC Orders Instructions: Managing Post-Op Pain at Home Prescriptions: New oxycodone 5 mg capsule 5 mg PO Q6H PRN (Reason: pain) 5 Days Qty: 20 0RF amoxicillin-pot clavulanate 875-125 mg tablet 1 tab PO BID Qty: 14 0RF ondansetron 4 mg tablet,disintegrating 4 mg PO Q8H PRN PRN (Reason: Nausea) Qty: 10 0RF No Action folic acid 800 mcg tablet 0.8 mg PO DAILY cholecalciferol (vitamin D3) 25 mcg (1,000 unit) capsule 25 mcg PO DAILY magnesium 200 mg tablet 200 mg PO DAILY ascorbic acid (vitamin C) [C-500] 500 mg tablet 500 mg PO DAILY omega-3 fatty acids Capsule 500 mg PO DAILY oxycodone-acetaminophen 5-325 mg tablet 1 - 2 tab PO Q6H PRN (Reason: pain) 3 Days Qty: 14 0RF Primary Care Provider: Care Physician,No Primary Referrals: Christal Mccall MD [Med Staff - Active Staff] - Activity Restrictions/Additional Instructions: Thank you for trusting us with your care today! Please take Tylenol (2 pills, 650 mg), ibuprofen (2 pills, 400 mg) every 6 hours as needed for pain and fever control. If this does not control your pain please take oxycodone as needed. Please take Zofran as needed for nausea. Please return to the emergency department if your symptoms change or worsen. Please follow with your general surgeon for further outpatient evaluation and management. Disposition Disposition: Home, Self Care
[2023-03-12 14:59] LABS: Internal QC Validated? YES +Cl - CLEAR BKGD; Pregnancy, Serum, hCG Quali. NEGATIVE Negative; Record Kit Lot#, Serum Preg. 667200
--- NOTE | 2023-03-12 15:00 | CT_ITS ---
STUDY: CT ABDOMEN AND PELVIS WITH CONTRAST REASON FOR EXAM: Female, 27 years old. Right upper quadrant pain. RADIATION DOSAGE (If Supplied By Facility): CTDIvol = ( 16.92 ) mGy, DLP = ( 1272.57 ) mGycm TECHNIQUE: Transaxial images were obtained through the abdomen and pelvis without oral contrast. 100 ml of Isovue-300 contrast was administered. Sagittal and coronal images were reconstructed. Individualized dose optimization techniques were used for this CT. COMPARISON: No relevant prior comparison study available FINDINGS: LOWER THORAX: The visualized lung bases are clear. The visualized portions of the heart and pericardium are within normal limits. GALLBLADDER / BILE DUCTS: The patient is status post cholecystectomy. There is fluid and stranding in the gallbladder fossa. There is no discrete fluid collection. There is no free air. There is no intrahepatic biliary duct dilatation. The common bile duct is normal in caliber. There are no calcified ductal stones. LIVER: The liver is within normal limits. There are no suspicious hepatic lesions. SPLEEN: The spleen is normal in size. PANCREAS: The pancreas is within normal limits. ADRENAL GLANDS: The adrenal glands are within normal limits. KIDNEYS / BLADDER: There are no renal or ureteral stones. There is no hydronephrosis. There are no focal renal lesions. The urinary bladder is partially distended and appears grossly unremarkable. STOMACH / BOWEL: Normal visualized stomach. There is no bowel obstruction or inflammation. The appendix is visualized and appears normal. PERITONEUM/RETROPERITONEUM: There is no abnormal soft tissue mass identified. There is no abdominal or pelvic lymphadenopathy. VESSELS: The aorta is normal in caliber. The IVC is unremarkable. BONES: There are no destructive osseous lesions. SOFT TISSUES: The visualized soft tissues are within normal limits. CT/Abdomen/Pelvis W IV Cont ONLY IMPRESSION: Status post cholecystectomy with fluid and stranding in the gallbladder fossa. No discrete fluid collection. No bowel obstruction or inflammation. Normal appendix. Normal kidneys. No hydronephrosis. Electronically Signed: Robe Nails MD at 16:03 EDT ,
[2023-03-12 15:05] LABS: ALB/GLOB Ratio 0.9 RATIO (0.9-2.4); AST(SGOT) 43 U/L (15-37); Alanine Aminotransfer ALT/SGPT 36 U/L (13-56); Albumin, Serum 3.6 g/dL (3.2-5.0); Alkaline Phosphatase 91 U/L (45-117); Anion Gap 9 (5-15); BUN 20 mg/dL (7-18); Calcium,Total 8.9 mg/dL (8.5-10.1); Chloride 106 mmol/L (98-107); EST Glomerular Filtration Rate 71 mL/min (>60); Est Glom Filt Rate - Afr Amer 86 mL/min (>60); Glucose 120 mg/dL (74-106); Potassium 3.5 mmol/L (3.5-5.1); Protein, Total 7.6 g/dL (6.4-8.2); Sodium Level 139 mmol/L (136-145)
[2023-03-12] MEDS: 0.9% Normal Saline (1000mL) 1,000 ML 1000 ML IV (15:09)
[2023-03-12] MEDS: Ketorolac 15 MG/ML Vial IV (15:09)
[2023-03-12] MEDS: Ondansetron 4 MG/2 ML Vial IV (15:10)
[2023-03-12] MEDS: Morphine 4 MG/ML Syringe IV ×2 (15:10→18:11)
[2023-03-12 15:52] LABS: Lipase 50 U/L (13-75)
[2023-03-12 15:54] LABS: Bacteria 0 SEEN /hpf (None Seen); Mucous, Urine 0 SEEN /hpf (<or=2+); Red Blood Cells-Urine 0 SEEN /hpf (0-5); White Blood Cells 0 SEEN /hpf (0-5)
[2023-03-12 16:02] LABS: Color, Urine Yellow (Yellow); Glucose, Dipstick Normal (Normal); Ketone-Dipstick Negative (Negative); Leukocyte Esterase-Dipstick Negative /ul (Negative); Nitrite-Dipstick Negative (Negative); Occult Blood-Urine Negative /ul (Negative); Protein-Dipstick Negative (Negative); Specific Gravity, Urine 1.005 (1.002-1.030); Urine Bilirubin Dipstick Negative (Negative); Urine Clarity Clear (Clear); Urine Urobilinogen Normal (Normal)
[2023-03-12 16:17] LABS: Squamous Epithelial Cells - UA 0-5 SEEN /hpf (5-10)
[2023-03-12] MEDS: Amox/Clavulanate 875 MG Tablet PO (18:11)
== END 2023-03-12 18:18 | disposition home or self-care (01) ==
PROVIDERS: Emergency Provider Emergency Medicine; Visit Provider Emergency Medicine
DX: R10.11 Right upper quadrant pain (principal); G89.18 Other acute postprocedural pain; D72.829 Elevated white blood cell count, unspecified
CPT/HCPCS: 74177; 80053; 81001; 83690; 84703; 85025; 96361; 96374; 96375; 96376; 99283; J7030; Q9967; A4216; J2405

== ENCOUNTER → 2024-04-24 | Outpatient (CLI) | payer MEDICAID, SELFPAY ==
[2024-04-24 11:39] LABS: Absolute Lymphocyte Count 2.41 X10^3/uL (0.83-4.51); Absolute Neutrophil Count 7.3 X10^3/uL (2.0-7.7); Basophil# 0.05 X10^3/uL; Basophil% 0.5 % (0-1); Eosinophil# 0.04 X10^3/uL; Eosinophils% 0.4 % (0-5); Hematocrit 42.1 % (37-47); Hemoglobin 14.3 g/dL (12.0-15.0); Lymphocyte # 2.41 X10^3/ul (0.83-4.51); Lymphocyte % 22.8 % (19-41); Mean Corpuscular Hgb 29.7 pg (27.0-32.0); Mean Corpuscular Volume 87.3 fL (81-99); Mean Platelet Vol. 10.9 fl (6.2-12.0); Monocyte# 0.72 X10^3/uL; Monocyte% 6.8 % (0-10); NRBC Flagged by Analyzer 0 % (0-5); Neutrophil # 7.28 X10^3/uL (2.7-7.7); Neutrophil % 68.7 % (47-70); Platelet Count 293 K/mm3 (150-450); RBC Distribution Width CV 12.2 % (11.6-14.6); RBC Distribution Width SD 38.8 fl (35.1-43.9); Red Blood Count 4.82 M/mm3 (4.2-5.4); White Blood Count 10.6 K/mm3 (4.4-11.0)
[2024-04-24 14:58] LABS: HIV - WCH Non-Reactive (Nonreactive); Hepatitis B Surface Antigen Non-Reactive (Nonreactive); Hepatitis C Antibody Non-Reactive (Nonreactive); Rubella IgG Reactive (Nonreactive); Syphilis Antibodies Non-reactive
[2024-04-26 07:07] LABS: Chlamydia By Nucleic Acid AMP Negative (Negative); Gonococcus By Nucleic Acid AMP Negative (Negative)
== END | disposition home or self-care (01) ==
LOC: BWCLAB 10:57
PROVIDERS: Referring Provider Obstetrics & Gynecology; Visit Provider Obstetrics & Gynecology
DX: O09.90 Supervision of high risk pregnancy, unspecified, unspecified trimester (principal); Z3A.00 Weeks of gestation of pregnancy not specified
CPT/HCPCS: 36415; 85025; 86703; 86762; 86780; 86803; 86850; 86900; 86901; 87086; 87340; 87491; 87591

== ENCOUNTER → 2024-08-21 | Outpatient (CLI) | payer MEDICAID, SELFPAY ==
[2024-08-21 11:23] LABS: Absolute Lymphocyte Count 1.95 X10^3/uL (0.83-4.51); Absolute Neutrophil Count 9.3 X10^3/uL (2.0-7.7); Basophil# 0.03 X10^3/uL; Basophil% 0.3 % (0-1); Eosinophil# 0.04 X10^3/uL; Eosinophils% 0.3 % (0-5); Hematocrit 38.4 % (37-47); Hemoglobin 12.7 g/dL (12.0-15.0); Lymphocyte # 1.95 X10^3/ul (0.83-4.51); Lymphocyte % 16.3 % (19-41); Mean Corp Hgb Conc 33.1 g/dL (32-36); Mean Corpuscular Hgb 29.6 pg (27.0-32.0); Mean Corpuscular Volume 89.5 fL (81-99); Mean Platelet Vol. 12.1 fl (6.2-12.0); Monocyte# 0.61 X10^3/uL; Monocyte% 5.1 % (0-10); NRBC Flagged by Analyzer 0 % (0-5); Neutrophil # 9.25 X10^3/uL (2.7-7.7); Neutrophil % 77.1 % (47-70); Platelet Count 234 K/mm3 (150-450); RBC Distribution Width CV 13.1 % (11.6-14.6); RBC Distribution Width SD 42.9 fl (35.1-43.9); Red Blood Count 4.29 M/mm3 (4.2-5.4)
[2024-08-21 11:28] LABS: Glucose Challenge Gest 1H 50g 111 mg/dL (70-140)
[2024-08-21 11:53] LABS: HIV Nonreactive (Nonreactive); Syphilis Antibodies Nonreactive (Nonreactive)
== END | disposition home or self-care (01) ==
LOC: BWCLAB 08:52
PROVIDERS: Registered Nurse; Visit Provider Obstetrics & Gynecology
DX: O09.92 Supervision of high risk pregnancy, unspecified, second trimester (principal); Z3A.00 Weeks of gestation of pregnancy not specified
CPT/HCPCS: 36415; 82950; 85025; 86703; 86780

== ENCOUNTER → 2024-10-04 | Outpatient (CLI) | payer MEDICAID, SELFPAY ==
--- NOTE | 2024-10-04 15:44 | US_ITS ---
PROCEDURE: OB LIMITED WITH BIOMETRICS 10/04/2024 REASON FOR EXAM: GROWTH TECHNIQUE: High resolution obstetric ultrasound performed using a 2D transducer. Standard views obtained, including biometry FINDINGS Transabdominal imaging Single live intrauterine with heart tones 157 beats per minute. Presentation is cephalic. Cervical length 3.2 cm and appears closed. DAVION 11.9 cm. Maximum vertical pocket 4.2 cm. Grade 1 posterior placenta appears within limits. Not low-lying. DIMENSIONS: Biparietal Diameter: 7.49 cm/30 weeks 0 days, 3.39% Head Circumference: 30.08 cm/33 weeks 3 days, 50% Abdominal Circumference: 28.85 cm/32 weeks 6 days, 74% Femur Length: 5.68 cm/29 weeks 6 days, 2.41% FL/BPD 76%, FL/HC 19%, HC/AC 1.04 FL/AC 20%, (20.00-24.00 32 weeks 0 day) CI 70%, (7.00-86.00, 32 weeks 0 day) ESTIMATED WEIGHT: 1799 g +/-270 g ESTIMATED WEIGHT PERCENTILE (24+ weeks): 28% Estimated age by current ultrasound 32 weeks 1 day, THOMAS 11/28/2024 age by LMP 32 weeks 0 days, THOMAS 11/29/2024 US/OB Limited With Biometrics IMPRESSION: Single live intrauterine with biometrics as above. FL/AC 20%, (20.00-24.00 32 weeks 0 day) CI 70%, (7.00-86.00, 32 weeks 0 day) Reading Location: [id number]
== END | disposition home or self-care (01) ==
LOC: OPUS 15:43 → US 15:44
PROVIDERS: Referring Provider Obstetrics & Gynecology; Visit Provider Obstetrics & Gynecology
DX: O36.60X0 Maternal care for excessive fetal growth, unspecified trimester, not applicable or unspecified (principal); Z3A.00 Weeks of gestation of pregnancy not specified
CPT/HCPCS: 76816

== ENCOUNTER → 2024-11-01 | Outpatient (CLI) | payer MEDICAID, SELFPAY | END | disposition home or self-care (01) | LOC: LABSPEC 11:56 | PROVIDERS: Referring Provider Obstetrics & Gynecology; Visit Provider Obstetrics & Gynecology | DX: O09.93 Supervision of high risk pregnancy, unspecified, third trimester (principal); Z3A.00 Weeks of gestation of pregnancy not specified | CPT/HCPCS: 87081 ==

== ENCOUNTER 2024-11-02 01:25 | Outpatient (CLI) | payer MEDICAID, SELFPAY ==
--- OUTSIDE RECORDS SUMMARY | 2024-11-02 01:36 | XMS RPT_ITS | CCD ---
Author Organization [facility] Care Team Providers Care Enamel Finisher Name Role Phone WOOD, PARMINDER L Unavailable Unavailable BRANCH, ZACKERY Unavailable Unavailable WOOD, PARMINDER L Unavailable Unavailable FRANK, DEEPPREET Unavailable Unavailable Wood, Parminder L Attending Unavailable Wood, Parminder L Primary Care Unavailable Lon Acosta Admitting Unavailable Lon Acosta Attending Unavailable Wood, Parminder L Primary Care Unavailable Newbill, Emir Combs Admitting Unavailable Newbill, Emir Combs Attending Unavailable Wood, Parminder L Primary Care Unavailable Newbill, Emir Combs Admitting Unavailable Newbill, Emir Combs Attending Unavailable Wood, Parminder L Primary Care Unavailable Newbill, Emir Combs Admitting Unavailable Newbill, Emir Castroel Attending Unavailable Wood, Parminder L Primary Care Unavailable Wood, Parminder L Admitting Unavailable Wood, Parminder L Attending Unavailable Wood, Parminder L Primary Care Unavailable Wood, Parminder L Admitting Unavailable Wood, Parminder L Attending Unavailable Wood, Parminder L Primary Care Unavailable Wood, Parminder L Admitting Unavailable Wood, Parminder L Attending Unavailable Wood, Parminder L Primary Care Unavailable Wood, Parminder L Admitting Unavailable Wood, Parminder L Attending Unavailable Wood, Parminder L Primary Care Unavailable SantinoYunior pichardo Unavailable Unavailable Ellen Veras Unavailable Unavailable Blaine Lam Unavailable Unavailable Care Physician, No Primary Primary Care Provider Unavailable Care Physician, No Primary Referring Provider Un available Dr. Evelyn Villa Attending Provider [phone] Ellen Veras Unavailable Ismael Davenport Unavailable Unavailable Care Physician, No Primary Primary Care Provider Unavailable Care Physician, No Primary Referring Provider Un available Dr. Penelope Yang Attending Provider [phone] Nathalia SLURRY TANK TENDER, GISELE-C Gui Attending Provider DEEPAK Mead Attending Provider Care Physician, No Primary Primary Care Provider Unavailable Care Physician, No Primary Referring Provider Un available Dr. Penelope Yang Attending Provider [phone] Care Physician, No Primary Primary Care Provider Unavailable Care Physician, No Primary Referring Provider Un available Nathalia SLURRY TANK TENDER, SLURRY TANK TENDER-C Gui Attending Provider [phone] DEEPAK Mead Referring Provider Mead, CNM Rina Other Provider Care Physician, No Primary Primary Care Provider Unavailable Care Physician, No Primary Referring Provider Un available Dr. Penelope Yang Attending Provider [phone] Nathalia SLURRY TANK TENDER, SLURRY TANK TENDER-C Gui Attending Provider [phone] Mead, DEEPAK Flynn Attending Provider [phone] Mead, NOLANM Rina Referring Provider Mead, NOLANM Rina Other Provider Care Physician, No Primary Primary Care Provider Unavailable Care Physician, No Primary Referring Provider Un available Dr. Penelope Yang Attending Provider [phone] DEEPAK Abreu Admit Provider [phone] DEEPAK Abreu Attending Provider [phone] DEEPAK Abreu Other Provider [phone] Dr. Penelope Yang Other Provider [phone] Required, No Pcp Unavailable Unavailable Ana Shabazz Unavailable MD ANA SHABAZZ Attending Unavaila Dr. Ellen España Primary Care Unavailab Ismael Worthington Referring Unavailable Ismael Davenport Attending Unavailable Dr. Ellen Veras Primary Care Unavailab le Care Physician, No Primary Primary Care Provider Unavailable Care Physician, No Primary Referring Provider Un available Dr. Christal Mccall Attending Provider [phone] Dr. Christal Mccall Referring Provider [phone] Dr. Christal Mccall Other Provider Ellen Veras MD Primary Care Provider ELLEN VERAS Primary Care Unavailable CAITLIN MEHTA Attending Unavailable Marsha HAWLEYN.DISASTER RECOVERY COORDINATOR, Hector C Primary Care Provider TRILL, HECTOR C Attending Unavailable TRILL, HECTOR C Primary Care Unavailable TRILL, HECTOR C Attending Unavailable TRILL, HECTOR C Referring Unavailable TRILL, HECTOR C Primary Care Unavailable TRILL, HECTOR C Primary Care Unavailable KURT LILLY Attending Unavailable NATHALIA, GUI S Referring Unavailable TRILL, HECTOR C Primary Care Unavailable CRYSTAL ORTIZ Attending Unavailable NATHALIA, GUI S Referring Unavailable TRILL, HECTOR C Primary Care Unavailable Care Physician, No Primary Primary Care Provider Unavailable Care Physician, No Primary Referring Provider Un available Nathalia JAQUEZ-CGui Attending Provider Cristy Abreu CNM Attending Provider [phone] Rina Mead CNM Attending Provider Trey KHAN, Dr. Negrete Attending Provider [phone] Care Physician, No Primary Primary Care Provider Unavailable Care Physician, No Primary Referring Provider Un available Gui Tyler Attending Provider Dr. Evelyn Villa DO Attending Provider Dr. Evelyn Villa DO Referring Provider Care Physician, No Primary Primary Care Unava ilable Evelyn Villa Attending Unavailabl e Care Physician, No Primary Referring Unava ilable Care Physician, No Primary Primary Care Unava ilable Gui Sloan Attending Unavailable Care Physician, No Primary Referring Unava ilable Care Physician, No Primary Primary Care Unava ilable Cristy Abreu Attending Unavailable Care Physician, No Primary Referring Unava ilable Evelyn Villa Referring Unavailsylvia e Evelyn Villa Attending Unavailabl e Care Physician, No Primary Primary Care Unava ilable Evelyn Villa Attending Unavailabl e Evelyn Villa Referring Unavailabl e Care Physician, No Primary Primary Care Unava ilable Care Physician, No Primary Primary Care Unava ilable Evelyn Villa Attending Unavailsylvia e Evelyn Villa Referring Unavailsylvia e Penelope Yang Attending Unavailable Care Physician, No Primary Primary Care Unava ilable Care Physician, No Primary Primary Care Unava ilable Rina Mead Attending Unavailable Care Physician, No Primary Referring Unava ilable Penelope Yang Attending Unavailable Care Physician, No Primary Referring Unava ilable Care Physician, No Primary Primary Care Unava ilable Penelope Yang Attending Unavailable Care Physician, No Primary Referring Unava ilable Care Physician, No Primary Primary Care Unava ilable Gui Sloan Attending Unavailable Care Physician, No Primary Referring Unava ilable Care Physician, No Primary Primary Care Unava ilable Evelyn Villa Attending Unavailabl e Care Physician, No Primary Referring Unava ilable Care Physician, No Primary Primary Care Unava ilable Cristy Abreu Attending Unavailable Care Physician, No Primary Referring Unava ilable Care Physician, No Primary Primary Care Unava ilable Care Physician, No Primary Primary Care Provider Unavailable Care Physician, No Primary Referring Provider Un available Cristy Abreu CNM Attending Provider [phone] Allergies Allergy Classification Reported Allergen(s) Allergy Type Date of Onset Reaction(s) Facility (1 source) Environmental allergy; Translations: [Environmental allergy] Propensity to adverse reactions (disorder) [facility] Rep[facility] (1 source) No Known Medication Allergies; Translations: [No Known Medication Allergies] Propensity to adverse reactions to drug (disorder) [facility] (1 source) bee pollen Allergy to substance (finding) [facility] [address] Work Phone: (1 source) Animal dander - Cats Allergy to substance (finding) [facility] [address] Work Phone: Medications Current Medications Medication Drug Class(es) Dates Sig (Normalized) Sig (Original) ascorbic acid 500 mg oral tablet (7 sources) Vitamin C Start: 02-23-2023 take 1 tablet by mouth once daily Ascorbic Acid (Vitamin C) (C-500) 500 mg tablet Active 500 mg PO DAILY February 23, 2023 12:00am azelastine hydrochloride 0.137 mg/actuat metered dose nasal spray (1 source) Histamine-1 Receptor Antagonist Start: 06-17-2024 End: 06-24-2024 take 1 spray(s) nasal route twice daily azelastine 0.1% nasal spray Indications: Acute cough , Acute URI , PND (post-nasal drip) Use 1 Clinton in each nostril two times a day for 7 days. 30 mL 06/17/2024 06/24/2024 Active azithromycin 250 mg oral tablet (1 source) Macrolide Antimicrobial Start: 10-22-2023 azithromycin (Zithromax Z-Hany) 250 mg tablet Indications: Acute sinusitis, recurrence not specified, unspecified location Take 2 tablets by mouth at once on day 1, then 1 tablet once a day on days 2-5. Take with a meal. 6 tablet 10/22/2023 Active cephalexin 500 mg oral tablet (4 sources) Cephalosporin Antibacterial Start: 01-11-2023 End: 01-17-2023 take 1 tablet by mouth twice daily cephalexin 500 mg oral tablet ; 1 tab(s) orally 2 times a day x 7 days Quantity: 14 Refills: 0 Ordered: 11-Jan-2023 Ismael Davenport Start: 11-Jan-2023 End: 17-Jan-2023 Generic Substitution Allowed Comments: Finish all this medication unless otherwise directed by prescriber. Start: 07-25-2022 take 500 mg by mouth twice daily Cephalexin Active 500 MG PO TWICE A DAY July 25, 2022 1:00am Comment on above: Finish all this medi cation unless otherwise directed by prescriber. cholecalciferol 0.025 mg oral capsule (12 sources) Vitamin D Start: take 1 capsule by mouth once daily Cholecalciferol (Vitamin D3) 25 mcg (1,000 unit) capsule Active 4000 U PO DAILY April 18, 2024 11:39am Start: 10-05-2022 End: 04-18-2024 take 1 capsule by mouth once daily Cholecalciferol (Vitamin D3) 25 mcg (1,000 unit) capsule Discontinued 25 ug PO DAILY October 05, 2022 12:00am April 18, 2024 11:42am clobetasol propionate 0.5 mg/ml topical solution (2 sources) Corticosteroid Start: 03-17-2024 End: 09-13-2024 Clobetasol Propionate (TEMOVATE) 0.05 % external solution Indications: Psoriasis of scalp Apply 1 application to affected area two times a day. 50 mL 5 03/17/2024 09/13/2024 Active fluticasone propionate 0.05 mg/actuat metered dose nasal spray (1 source) Corticosteroid Start: 06-17-2024 End: 06-27-2024 take 1 spray(s) nasal route once daily at bedtime fluticasone (FLONASE) 50 mcg/actuation nasal spray Indications: Acute cough , Acute URI , Sinus drainage Use 1 Clinton in each nostril daily at bedtime for 10 days. 9.9 mL 06/17/2024 06/27/2024 Active folic acid 0.8 mg oral tablet (7 sources) Start: 10-05-2022 take 0.8 mg by mouth once daily Folic Acid 800 mcg tablet Active 0.8 mg PO DAILY October 05, 2022 12:00am Start: 10-05-2022 take 0.8 mg by mouth once amanda y Folic Acid Active 0.8 MG PO DAILY October 05, 2022 12:00am Octoberl Fe 1.5/30 oral tablet (1 source) take 1 tablet by mouth once daily Fe 1.5/30 oral tablet ; 1 tab(s) orally once a day Quantity: 0 Refills: 0 Ordered: 26-Apr-2020 Bowling, Melanic Status: Other Generic Substitution Allowed Magnesium (7 sources) Start: 02-23-2023 take 1 tablet by mouth once daily Magnesium 200 mg tablet Active 200 mg PO DAILY February 23, 2023 12:00am Start: 02-23-2023 take 200 mg by mouth once amanda y Magnesium Active 200 MG PO DAILY February 23, 2023 12:00am metFORMIN hydrochloride 500 mg oral tablet (2 sources) Biguanide take 1 tablet by mouth twice daily metFORMIN 500 mg oral tablet ; 1 tab(s) orally 2 times a day Quantity: 0 Refills: 0 Ordered: 26-Apr-2020 Bowling, Melanic Status: Other Generic Substitution Allowed Cades-3 Fatty Acids (2 sources) Start: 02-24-20 take 500 mg by mouth once daily Cades-3 Fatty Acids Active 500 MG PO DAILY February 23, 2023 12:00am Cades-3 Fatty Acids capsule (5 sources) Start: 02-24-20 take 1 capsule by mouth once daily Cades-3 Fatty Acids capsule Active 500 mg PO DAILY February 23, 2023 12:00am ondansetron 4 mg disintegrating oral tablet (17 sources) Serotonin-3 Receptor Antagonist Start: 04-24-20 End: 07-03-19 take 1 tablet by mouth every eight hours as needed for nausea and vomiting Ondansetron 4 mg tablet,disintegratin g Active 4 mg PO Q8H as needed for nausea and vomiting July 03, 2024 9:33am Start: 03-12-2023 End: 04-18-2024 take 1 tablet by mouth every eight hours as needed for nausea Ondansetron 4 mg tablet,disintegrating Discontinued 4 mg PO EVERY 8 HOURS NEEDED as needed for Nausea March 12, 2023 12:00am April 18, 2024 11:41am Start: 10-18-2022 take 1 tablet by nneka th every eight hours ondansetron 4 mg oral tablet, disintegrating ; 1 tab(s) orally every 8 hours Quantity: 15 Refills: 0 Ordered: 18-Oct-2022 Ana Shabazz Start: 18-Oct-2022 Generic Substitution Allowed Pnv No.046-Aq-Ua2-Dha-Epa-Fi sh (8 sources) Start: 01-13-2022 take 1 tablet by mouth once daily Pnv No.004-Vb-Cp5-Pwz-Aqc-Fpna Active 1 TABLET PO DAILY January 13, 2022 12:00am Start: 01-13-2022 take 1 tablet by nneka th once daily Pnv No.294-Xd-Dl3-Gip-Ppi-Qvmh Active 1 TABLET PO DAILY January 12, 2022 11:00pm Start: 01-13-2022 Pnv No.153-Fa- Qr4-Ewk-Bit-Fish Active TABLET PO January 12, 2022 11:00pm Start: 01-13-2022 Pnv No.153-Fa- Kg7-Zyv-Ynd-Fish Active TABLET PO January 13, 2022 12:00am Pnv No.419-Xm-Hp2-Dha-Epa-Fi sh 400 mcg-35 mg- 25 mg-5 mg tablet,chewable (5 sources) Start: 04-18-2024 Pnv No.305-Nf-Sr7-Dha-Epa-Fi sh 400 mcg-35 mg- 25 mg-5 mg tablet,chewable Active {tbl} PO DAILY April 18, 2024 1:00am VITAMIN (3 sources) VITAMIN Quantity: 0 Refills: 0 Ordered: 31-Mar-2022 Kristi Bautistaica Generic Substitution Allowed Vitamin D (3 sources) VITAMIN D ; once a day Quantity: 0 Refills: 0 Ordered: 26-Apr-2020 Lakeshia Levine Generic Substitution Allowed Completed/Discontinued Medications Medication Drug Class(es) Dates Sig (Normalized) Sig (Original) acetaminophen 325 mg / oxyCODONE hydrochloride 5 mg oral tablet (8 sources) Opioid Agonist Start: 03-02-2023 End: 03-22-2023 Oxycodone-Acetamino phen 5-325 mg tablet Discontinued 1 - 2 {tbl} PO EVERY 6 HOURS as needed for pain 14 March 02, 2023 March 22, 2023 3:28pm Start: 03-02-2023 take 1 tablet by nneka th every six hours Oxycodone-Acetaminophen Active 1 - 2 TABLET PO EVERY 6 HOURS 14 March 02, 2023 Start: 10-18-2022 take 1 tablet by nneka th every six hours as needed oxycodone-acetaminophen 5 mg-325 mg oral tablet ; 1 tab(s) orally every 6 hours, As Needed -for pain Quantity: 12 Refills: 0 Ordered: 18-Oct-2022 Ana Shabazz Start: 18-Oct-2022 Generic Substitution Allowed Comments: Caution federal law prohibits the transfer of this drug to any person other than the person for whom it was prescribed.May cause drowsiness. Alcohol may intensify this effect. Use care when operating dangerous machinery.This prescription cannot be refilled.This product contains acetaminophen. Do not use with any other product containing acetaminophen to prevent possible liver damage.Using more of this medication than prescribed may cause serious breathing problems. Comment on above: Caution federal law prohibits the transfer of this drug to any person other than the person for whom it was prescribed.May cause drowsiness. Alcohol may intensify this effect. Use care when operating dangerous machinery.This prescription cannot be refilled.This product contains acetaminophen. Do not use with any other product containing acetaminophen to prevent possible liver damage.Using more of this medication than prescribed may cause serious breathing problems. amoxicillin 875 mg oral tablet (2 sources) Penicillin-class Antibacterial Start: 03-31-20 End: 04-06-20 take 1 tablet by mouth twice daily amoxicillin 875 mg oral tablet ; 1 tab(s) orally 2 times a day x 7 days Quantity: 14 Refills: 0 Ordered: 31-Mar-2022 Ismael Davenport Start: 31-Mar-2022 End: 06-Apr-2022 Generic Substitution Allowed Comments: Finish all this medication unless otherwise directed by prescriber. Comment on above: Finish all this medi cation unless otherwise directed by prescriber. amoxicillin 875 mg / clavulanate 125 mg oral tablet (6 sources) Penicillin-class Antibacterial Start: 03-12-20 End: 03-22-20 Amoxicillin-Pot Clavulanate 875-125 mg tablet Discontinued 1 {tbl} PO TWICE A DAY March 12, 2023 12:00am March 22, 2023 3:28pm Start: 03-12-2023 take 1 tablet by nneka th twice daily Amoxicillin-Pot Clavulanate Active 1 TABLET PO TWICE A DAY March 12, 2023 12:00am FE 1.5/30 1.5-30 MG-MCG Oral Tablet (1 source) Estrogen take 1 tablet by mouth once daily, then take 1.5-30 tablets by mouth 1.5/30 1.5-30 MG-MCG Oral Tablet TAKE 1 TABLET DAILY DIRECTED. Quantity: 3 Refills: 3 Yunior Mercado DO Active 28 Tablet Pack FLUoxetine 10 mg oral tablet (9 sources) Serotonin Reuptake Inhibitor Start: End: take 1 tablet by mouth twice daily in the morning Fluoxetine 10 mg tablet Discontinued 10 mg PO TWICE A DAY October 02, 2024 12:00am October 20, 2024 9:02am administer in the morning and at noon/midday Start: 02-27-2024 take 2 capsules by m outh once daily, then take 1 capsule by mouth once daily, then take 1 capsule by mouth every other day FLUoxetine (PROZAC) 10 mg capsule Take 2 capsules by mouth once daily for 14 days, THEN 1 capsule once daily for 7 days, THEN 1 capsule every other day for 7 days. 39 capsule 02/27/2024 Active Start: 02-08-2024 End: 05-08-2024 take 1 capsule by mouth once daily FLUoxetine (PROZAC) 40 mg capsule Indications: MADDIE (generalized anxiety disorder) Take 1 capsule by mouth once daily. 30 capsule 2 02/08/2024 05/08/2024 Active Start: 01-11-2024 End: 04-10-2024 take 1 capsule by mouth once daily FLUoxetine (PROZAC) 20 mg capsule Indications: MADDIE (generalized anxiety disorder) Take 1 capsule by mouth once daily. 30 capsule 2 01/11/2024 04/10/2024 Active Start: 01-04-2024 End: 04-03-2024 take 1 capsule by mouth once daily FLUoxetine (PROZAC) 10 mg capsule Indications: MADDIE (generalized anxiety disorder) Take 1 capsule by mouth once daily. 30 capsule 2 01/04/2024 01/11/2024 Discontinued nitrofurantoin, macrocrystals 25 mg / nitrofurantoin, monohydrate 75 mg oral capsule (11 sources) Nitrofuran Antibacterial Start: 07-24-2022 End: 07-25-2022 take 1 capsule by mouth every twelve hours at mealtime Nitrofurantoin Monohyd/M-Cryst (Macrobid) 100 mg capsule Discontinued 100 mg PO Q12H 10 5 July 24, 2022 1:00am July 28, 2022 12:00am July 25, 2022 9:45am must administer with a meal/food oxyCODONE hydrochloride 5 mg oral capsule (12 sources) Opioid Agonist Start: 03-12-2023 End: 03-22-2023 take 1 capsule by mouth every six hours as needed for pain Oxycodone 5 mg capsule Discontinued 5 mg PO EVERY 6 HOURS as needed for pain 03 10March 12, 2023 March 22, 2023 3:28pm predniSONE 20 mg oral tablet (1 source) Start: 04-26-2020 End: 04-30-2020 take 1 tablet by mouth once daily at mealtime predniSONE 20 mg oral tablet ; 1 tab(s) orally once a day Quantity: 5 Refills: 0 Ordered: 26-Apr-2020 Cortney Aquino Start: 26-Apr-2020 End: 30-Apr-2020 Status: Other Generic Substitution Allowed Comments: It is very important that you take or use this exactly as directed. Do not skip doses or discontinue unless directed by your doctor.Obtain medical advice before taking any non-prescription drugs as some may affect the action of this medication.Take with food or milk. Comment on above: It is very important that you take or use this exactly as directed. Do not skip doses or discontinue unless directed by your doctor.Obtain medical advice before taking any non-prescription drugs as some may affect the action of this medication.Take with food or milk. Problems Active Problems Problem Classification Problem Date Documented Date Episodic/Chronic Abdominal pain (10 sources) Abdominal pain; Translations: [Right upper quadrant pain] Onset: 10-18-2022 10-18-2022 Episodic Comment on above: ABD PAIN Allergic reactions (5 sources) Environmental allergy; Translations: [Other allergy status, other than to drugs and biological substances] 01-04-2024 Episodic Anxiety disorders (20 sources) Generalized anxiety disorder; Translations: [Generalized anxiety disorder] Onset: 01-04-2024 01-11-2024 Chronic Comment on above: stable. stable. BF new seizu re activity in August. started fluoxetine 10/02 Biliary tract disease (20 sources) Biliary sludge; Translations: [Other specified diseases of gallbladder] Onset: 10-18-2022 07-27-2022 Episodic Comment on above: low fat dietnutritio n consult. had another attack o n wednesday. request for referral Calculus of urinary tract (5 sources) Kidney stone; Translations: [Calculus of kidney] Onset: 10-18-2022 07-24-2022 Episodic Fluid and electrolyte disorders (1 source) Hypokalemia; Translations: [Hypokalemia] Onset: 10-18-2022 Episodic Heart valve disorders (20 sources) Heart murmur; Translations: [Cardiac murmur, unspecified] Onset: 10-20-2024 10-05-2022 Episodic Other complications of (20 sources) Maternal obesity complicating , childbirth and the puerperium, antepartum; Translations: [Obesity complicating , unspecified trimester] 02-16-2022 Chronic Comment on above: bmi 35 recommend lucien gonzalezts after 36 growth US q 4 weeks. 1 TM GCT Other complications of (20 sources) Obesity complicating , unspecified trimester; Translations: [Obesity complicating , childbirth, or the puerperium, unspecified as to episode of care or not applicable] Onset: 08-21-2024 02-16-2022 Chronic Other complications of (2 sources) Obesity complicating , third trimester; Translations: [Obesity complicating , third trimester] Onset: 10-20-2024 Chronic Other complications of (13 sources) Abnormal findings on screening of mother; Translations: [Abnormal chromosomal and genetic finding on screening of mother] 06-08-2022 Episodic Comment on above: high risk frac tion, declines invasive genetic testing. recommend weekly nsts after 32 and growth us q 4 weeks,2/20 nl growth-48% Other complications of (20 sources) Abnormal chromosomal and genetic finding on screening of mother; Translations: [Abnormal finding on screening] 02-16-2022 Episodic Other complications of (4 sources) Pruritic urticarial papules and plaques of ; Translations: [Pruritic urticarial papules and plaques of (PUPPP)] 07-07-2022 Episodic Other complications of (20 sources) Pruritic urticarial papules and plaques of (PUPPP); Translations: [Other specified complications of , unspecified as to episode of care or not applicable] 06-29-2022 Episodic Comment on above: rash just abdomen. L abs nl Other complications of (10 sources) Pyelonephritis in ; Translations: [Infections of kidney in , unspecified trimester] 07-27-2022 Episodic Comment on above: afebrile, VSSobtaini ng CBC and renal ultrasound.ultrasound negative for calculi. s/p tylenol and [id number] ancef, will transition to keflex outpatient. Other complications of (6 sources) Infections of kidney in , unspecified trimester; Translations: [Infections of genitourinary tract in , unspecified as to episode of care or not applicable] 07-27-2022 Episodic Other complications of (20 sources) High risk ; Translations: [Supervision of high risk , unspecified, unspecified trimester] 08-21-2024 Episodic Comment on above: [id number], THOMAS 11/29/24 , boy [employer] PC Singh, BF Pernell Other complications of (7 sources) Excessive growth affecting management of mother; Translations: [Maternal care for excessive growth, unspecified trimester, not applicable or unspecified] 10-02-2024 Episodic Other complications of (2 sources) Maternal care for excessive growth, unspecified trimester, not applicable or unspecified; Translations: [Maternal care for excessive growth, unspecified trimester, not applicable or unspecified] Onset: 10-20-2024 Episodic Other complications of (2 sources) Supervision of high risk , unspecified, third trimester; Translations: [Supervision of high risk , unspecified, third trimester] Onset: 10-20-2024 Episodic Other complications of (1 source) Supervision of high risk , unspecified, second trimester; Translations: [Supervision of high risk , unspecified, second trimester] Onset: 08-24-2024 Episodic Other endocrine disorders (6 sources) Polycystic ovarian syndrome; Translations: [Polycystic ovary syndrome] 01-04-2024 Chronic Other endocrine disorders (1 source) Menarche; Translations: [History of Menarche] Chronic Other inflammatory condition of skin (1 source) Scalp psoriasis; Translations: [Psoriasis, unspecified] 03-17-2024 Chronic Other inflammatory condition of skin (1 source) Psoriasis, unspecified; Translations: [Psoriasis of scalp] Onset: 03-17-2024 Chronic Other lower respiratory disease (1 source) Cough; Translations: [Acute cough] 06-17-2024 Episodic Other nervous system disorders (1 source) Tremor, unspecified; Translations: [Tremor] Onset: 03-17-2024 Episodic Other non-traumatic joint disorders (1 source) Pain in left knee; Translations: [Pain in joint, lower leg] 01-04-2024 Episodic Other nutritional; endocrine; and metabolic disorders (1 source) Obesity; Translations: [Obesity] Chronic Other nutritional; endocrine; and metabolic disorders (5 sources) Insulin resistance; Translations: [Insulin resistance] 01-04-2024 Chronic Other and delivery including normal (20 sources) Normal ; Translations: [Encounter for supervision of normal first , unspecified trimester] Onset: 04-24-2024 Episodic Comment on above: KW/SM 39 IOL abnl NI PT boy Singh, 08/16/2022 PRR , THOMAS 08/21/22 , boy BF - Pernell declined NIPT & Flower ier testing. nl anatomy. GBS NEG, high risk N IPT due to DNA fraction MFM referral sent, Carrier neg. , nl GCT. nl anatomy Other screening for suspected conditions (not mental disorders or infectious disease) (2 sources) Patient encounter status; Translations: [Encounter for screening for lipoid disorders] Onset: 03-17-2024 03-17-2024 Episodic Other upper respiratory disease (15 sources) Seasonal allergy; Translations: [Other seasonal allergic rhinitis] 01-13-2022 Chronic Comment on above: grass, pollen, cat d batsheva Other upper respiratory disease (20 sources) Other seasonal allergic rhinitis; Translations: [Allergic rhinitis, cause unspecified] Chronic Other upper respiratory disease (2 sources) Pain in throat 03-31-2022 Episodic Comment on above: SORE THROAT Other upper respiratory disease (1 source) Nasal sinus problem; Translations: [Other specified disorders of nose and nasal sinuses] 06-17-2024 Episodic Other upper respiratory infections (10 sources) Acute pharyngitis, unspecified; Translations: [Acute laryngitis] Onset: 03-31-2022 10-22-2023 Episodic Residual codes; unclassified (1 source) Gestation period, 16 weeks; Translations: [16 weeks gestation of ] 06-17-2024 Episodic Residual codes; unclassified (1 source) 34 weeks gestation of ; Translations: [34 weeks gestation of ] Onset: 10-20-2024 Episodic Residual codes; unclassified (1 source) 25 weeks gestation of ; Translations: [25 weeks gestation of ] Onset: 08-21-2024 Episodic Umbilical cord complication (5 sources) Marginal insertion of umbilical cord 08-16-2022 Episodic Comment on above: weekly nsts. growth us q 4 weeks. Unclassified (1 source) Activity, other specified / Y93.89(ICD-9) Onset: 11-16-2017 Unclassified (1 source) Oth place in hospital as place / Y92.238(ICD-9) Onset: 11-16-2017 Unclassified (1 source) Civilian activity done for income or pay / Y99.0(ICD-9) Onset: 11-16-2017 Unclassified (1 source) Other specified soft tissue disorders / M79.89(ICD-9) Onset: 11-16-2017 Unclassified (1 source) Crushing injury of left index finger, initial encounter / S67.191A(ICD-9) Onset: 11-16-2017 Unclassified (1 source) Contusion of left index finger w/o damage to nail, init / S60.022A(ICD-9) Onset: 11-16-2017 Unclassified (1 source) Generalized enlarged lymph nodes / R59.1(ICD-9) Onset: 04-17-2017 Unclassified (1 source) Abnormal weight gain / R63.5(ICD-9) Onset: 04-17-2017 Unclassified (1 source) Pain in left finger(s) / M79.645(ICD-9) Onset: 11-16-2017 Unclassified (1 source) Caught, crush, jammed, or pinched betw moving objects, init / W23.0XXA(ICD-9) Onset: 11-16-2017 Unclassified (1 source) Localized swelling, mass and lump, neck / R22.1(ICD-9) Onset: 04-17-2017 Unclassified (1 source) Cholelithiasis 10-18-2022 Unclassified (1 source) Oth diseases and conditions complicating ; Translations: [Oth diseases and conditions complicating ] Onset: 03-31-2022 Unclassified (2 sources) PAINFUL URINATION 01-11-2023 Comment on above: PAINFUL URINATION Past or Other Problems Problem Classification Problem Date Documented Da te Episodic/Chronic Genitourinary symptoms and ill-defined conditions (5 sources) Increased frequency of urination; Translations: [Frequency of micturition] Onset: 01-04-2024 01-04-2024 Episodic Immunizations and screening for infectious disease (1 source) Contact with and (suspected) exposure to other bacterial communicable diseases; Translations: [Contact w and exposure to oth bact communicable diseases] Onset: 03-31-2022 Episodic Other complications of (1 source) Supervision of high risk , unspecified, unspecified trimester; Translations: [Supervision of high risk , unspecified, unspecified trimester] Onset: 05-25-2024 Episodic Other connective tissue disease (1 source) Other specified soft tissue disorders; Translations: [Other specified soft tissue disorders] Onset: 11-16-2017 Episodic Other nervous system disorders (3 sources) Tremor; Translations: [Tremor, unspecified] Onset: 03-17-2024 03-17-2024 Episodic Other nutritional; endocrine; and metabolic disorders (1 source) Abnormal weight gain; Translations: [Abnormal weight gain] Onset: 04-17-2017 Episodic Other nutritional; endocrine; and metabolic disorders (1 source) Insulin resistance; Translations: [Insulin resistance] Other skin disorders (1 source) Localized swelling, mass and lump, neck; Translations: [Localized swelling, mass and lump, neck] Onset: 04-17-2017 Episodic Residual codes; unclassified (1 source) 19 weeks gestation of ; Translations: [19 weeks gestation of ] Onset: 03-31-2022 Episodic Residual codes; unclassified (1 source) 17 weeks gestation of ; Translations: [17 weeks gestation of ] Onset: 06-26-2024 Episodic Unclassified (1 source) Pain in left finger(s); Translations: [Pain in left finger(s)] Onset: 11-16-2017 Unclassified (1 source) Crushing injury of left index finger, initial encounter; Translations: [Crushing injury of left index finger, initial encounter] Onset: 11-16-2017 Unclassified (20 sources) Marginal insertion of umbilical cord; Translations: [Marginal insertion of umbilical cord] 04-13-2022 Unclassified (9 sources) Planned procedure; Translations: [Elective induction of labor planned] 08-16-2022 NEGATED: Highlighted row has not occurred!Residual codes; unclassified (2 sources) Disease Episodic Results Test Name Value Interpretation Reference Range Facility Laboratory - Chemistry and C hemistry - challengeOrdered By: Cristy Abreu on 10-20-2024 Glucose Ql (U) Negative [facility] - UrinalysisOrder ed By: Cristy Abreu on 10-20-2024 Protein Ql (U) Negative [facility] Drum Worker Office Visit Reporton 10-20-2024 Drum Worker Office Visit Report [facility] [address], [facility] [address] [place] [address] OFFICE VISIT Date of Service: 10/20/24 MR#: [id number] Acct: [id number] Name: CLAUDIA FARFAN MARLENE Rep #: [id number] : 1995 Provider: DEEPAK Traylor ams Age/Sex: 28/F Location: [facility] [place] Status: Signed Intake Vital Signs 08/21/24 08:34 10/02/24 09:03 10/20/24 08:58 10/20/24 09:02 Height 5 ft 3 in 5 ft 3 in 5 ft 3 in 5 ft 3 in Weight: 231 lb BMI 40.9 BP 119/78 Intake Visit Reasons: 34wk ob Chief Complaint: 34 Week OB Seismograph Recorder Required: No Is patient in pain?: No Allergies No Known Allergies Allergy (Verified 10/20/24 08:56) Medications ???Medication ???Instructions ???Recorded ???Confirmed ???Type folic acid 800 mcg tablet 0.8 mg PO DAILY 10/05/22 10/20/24 History ascorbic acid (vitamin C) 500 mg 500 mg PO DAILY 02/23/23 10/20/24 History tablet (C-500) magnesium 200 mg tablet 200 mg PO DAILY 02/23/23 10/20/24 History omega-3 fatty acids 500 mg PO DAILY 02/23/23 10/20/24 History PNV 153-FA 400 mcg-om3 35 mg-dha tab PO DAILY 04/18/24 10/20/24 His tory 25 mg-epa 5 mg-fish oil chew tablet cholecalciferol (vitamin D3) 25 4,000 unit PO DAILY 04/18/2410/20 History mcg (1,000 unit) capsule ondansetron 4 mg disintegrating 4 mg PO Q8H PRN nausea and 5 10/20/24 Rx tablet vomiting #30 tabs Last Menstrual Period: 02/23/24 Zika: Zika virus screening: Negative : No PFSH PFSH Medical History Postoperative abdominal pain Wears contact lenses Wears glasses Non-smoker Cholelithiasis Gallbladder sludge Gallbladder attack Vaginal delivery Surgical History S/P cholecystectomy History of surgery History of surgery History of surgery Family History Mother Asthma Grandfather Heart disease Maternal Hypertension Maternal CVA (cerebral vascular accident) Maternal Thyroid disorder Maternal Social History adopted: No household members: significant other, family and children housing: house number of children: 1 current occupational status: employed 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 current occupational exposures/hazards: No pets and animals: Yes pets and animals: dog(s) history of recent travel: No sexually active: Yes Smoking Status: Never smoker second hand exposure: No alcohol intake: current details: rarely socially- Not while substance use type: does not use well-balanced diet: daily or most days caffeine: Yes (Energy drink 200mg) Type: other Number of servings: 1 eating out: 1-3 times/week during the past year weight has: decreased > 10 lbs what type of physical activity do you participate in: none ronn/taoist: None seatbelt use: always do you feel safe at home: Yes additional social history: Boyfriend Pernell- Pest Control History 2 Elective abortions Hx Para 1 Spontaneous abortions Hx # Term Pregnancies 1 Ectopic pregnancies Hx # Pregnancies Multiple births # of living children 1 Past Pregnancies Del. Date Name GA/Weeks Outcome Route Bth Weight Infant Gen Labor Lgth Anesthesia Del Locatn Provider FOB 08/16/22 Singh 39 live - full term 7# 3oz Male [facility] KW/SM Delivery Date: 08/16/22 Last Updated by: Jovana Jon IOL abnl. NIPT HPI 34wk ob Details: CLAUDIA FARFAN is a 28 year old who presents for routine OB visit. OB Visit THOMAS Calculator Estimated Delivery Date Method Current WG Current Estimate 11/29/24 LMP (Certain) 34w 2d Other Estimates 11/29/24 Ultrasound #1 34w 2d Expected Delivery Route/Plan Labor Preferences- CB/BF classes: no labor support person: Pernell labor intervention preferences: [] pain management options preferred: epidural cut cord/dad catch: cord : yes PP control planned: discussed discussed possible routes of delivery and associated risks: [] special requests: [] Specific Issue/Plans Covid status: [] Flu vaccine: [] Tdap vaccine: declines Rhogam: NA LARC form signed: yes Problem list reviewed and updated with the most current plan of care details and appropriate orders placed. Relevant counseling for the gestational age provided. Continue routine care and follow up unless otherwise noted in visit notes/problem list details Initial Weight: 217 lb Date -???-???-???-???-???-???- ???-???-???-???-???-???- EGA Weight BP Urine Prot -???-???-???-???-???-???- ???-???-???-???-???-???- Glucose (more content not included)... Normal [facility] OB Limited With Biometricson 10-04-2024 OB Limited With Biometrics [facility] Imaging Services [address] [place] [address] OB Limited With Biometrics MR#: [id number] Acct: [id number] Name: CLAUDIA FARFAN Rep #: [id number] : 1995 F 28 From: Tay Mansfield MD PCP: Care Physician,No Primary Status: REG CLI Study: OB Limited With Biometrics Date of Exam: 10/04 Exam# [id number] Ordering Dr: Evelyn Villa DO PROCEDURE: OB LIMITED WITH BIOMETRICS 10/04/2024 REASON FOR EXAM: GROWTH TECHNIQUE: High resolution obstetric ultrasound performed using a 2D transducer. Standard views obtained, including biometry FINDINGS Transabdominal imaging Single live intrauterine with heart tones 157 beats per minute. Presentation is cephalic. Cervical length 3.2 cm and appears closed. DAVION 11.9 cm. Maximum vertical pocket 4.2 cm. Grade 1 posterior placenta appears within limits. Not low-lying. DIMENSIONS: Biparietal Diameter: 7.49 cm/30 weeks 0 days, 3.39% Head Circumference: 30.08 cm/33 weeks 3 days, 50% Abdominal Circumference: 28.85 cm/32 weeks 6 days, 74% Femur Length: 5.68 cm/29 weeks 6 days, 2.41% FL/BPD 76%, FL/HC 19%, HC/AC 1.04 FL/AC 20%, (20.00-24.00 32 weeks 0 day) CI 70%, (7.00-86.00, 32 weeks 0 day) ESTIMATED WEIGHT: 1799 g +/-270 g ESTIMATED WEIGHT PERCENTILE (24+ weeks): 28% Estimated age by current ultrasound 32 weeks 1 day, THOMAS 11/28/2024 age by LMP 32 weeks 0 days, THOMAS 11/29/2024 US/OB Limited With Biometrics IMPRESSION: Single live intrauterine with biometrics as above. FL/AC 20%, (20.00-24.00 32 weeks 0 day) CI 70%, (7.00-86.00, 32 weeks 0 day) Reading Location: [id number] CC: Dr. Evelyn Villa, ; No Primary Care Physician [employer] Architect: Signed Normal [facility] Laboratory - Chemistry and C hemistry - challengeOrdered By: Evelyn Lema on 10-02-2024 Glucose Ql (U) Negative [facility] - UrinalysisOrder ed By: Evelyn Lema on 10-02-2024 Protein Ql (U) Trace [facility] Drum Worker Office Visit Reporton 10-02-2024 Drum Worker Office Visit Report [facility] [address], [address] [place] [address] OFFICE VISIT Date of Service: 10/02/24 MR#: [id number] Acct: [id number] Name: CLAUDIA FARFAN MARLENE Rep #: [id number] 1 : 1995 Provider: Dr. Evelyn Becker DO Age/Sex: 28/F Location: [facility] [place] Status: Signed Intake Vital Signs 08/21/24 08:34 09/20/24 09:57 10/02/24 09:02 10/02/24 09:03 Height 5 ft 3 in 5 ft 3 in 5 ft 3 in 5 ft 3 in Weight: 230 lb BMI 40.7 BP 124/76 H Intake Visit Reasons: 32wk ob Seismograph Recorder Required: No Is patient in pain?: No Allergies No Known Allergies Allergy (Verified 10/02/24 09:02) Medications ???Medication ???Instructions ???Recorded ???Confirmed ???Type folic acid 800 mcg tablet 0.8 mg PO DAILY 10/05/22 10/02/24 History ascorbic acid (vitamin C) 500 mg 500 mg PO DAILY 02/23/23 10/02/24 History tablet (C-500) magnesium 200 mg tablet 200 mg PO DAILY 02/23/23 10/02/24 History omega-3 fatty acids 500 mg PO DAILY 02/23/23 10/02/24 History PNV 153-FA 400 mcg-om3 35 mg-dha tab PO DAILY 04/18/24 10/02/24 His tory 25 mg-epa 5 mg-fish oil chew tablet cholecalciferol (vitamin D3) 25 4,000 unit PO DAILY 04/18/2410/02 History mcg (1,000 unit) capsule ondansetron 4 mg disintegrating 4 mg PO Q8H PRN nausea and 5 10/02/24 Rx tablet vomiting #30 tabs Last Menstrual Period: 02/23/24 Zika: Zika virus screening: Negative : No PFSH PFSH Medical History Postoperative abdominal pain Wears contact lenses Wears glasses Non-smoker Cholelithiasis Gallbladder sludge Gallbladder attack Vaginal delivery Surgical History S/P cholecystectomy History of surgery History of surgery History of surgery Family History Mother Asthma Grandfather Heart disease Maternal Hypertension Maternal CVA (cerebral vascular accident) Maternal Thyroid disorder Maternal Social History adopted: No household members: significant other, family and children housing: house number of children: 1 current occupational status: employed 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 current occupational exposures/hazards: No pets and animals: Yes pets and animals: dog(s) history of recent travel: No sexually active: Yes Smoking Status: Never smoker second hand exposure: No alcohol intake: current details: rarely socially- Not while substance use type: does not use well-balanced diet: daily or most days caffeine: Yes (Energy drink 200mg) Type: other Number of servings: 1 eating out: 1-3 times/week during the past year weight has: decreased > 10 lbs what type of physical activity do you participate in: none ronn/taoist: None seatbelt use: always do you feel safe at home: Yes additional social history: Boyfriend Pernell- Pest Control History 2 Elective abortions Hx Para 1 Spontaneous abortions Hx # Term Pregnancies 1 Ectopic pregnancies Hx # Pregnancies Multiple births # of living children 1 Past Pregnancies Del. Date Name GA/Weeks Outcome Route Bth Weight Gen Labor Lgth Anesthesia Del Locatn Provider FOB 08/16/22 Singh 39 live - full term 7# 3oz Male [facility] KW/SM Delivery Date: 08/16/22 Last Updated by: Jovana Jon IOL abnl. NIPT HPI 32wk ob Details: CLAUDIA FARFAN is a 28 year old who presents for routine OB visit. OB Visit THOMAS Calculator Estimated Delivery Date Method Current WG Current Estimate 11/29/24 LMP (Certain) 31w 5d Other Estimates 11/29/24 Ultrasound #1 31w 5d Expected Delivery Route/Plan Labor Preferences- CB/BF classes: no labor support person: Pernell labor intervention preferences: [] pain management options preferred: epidural cut cord/dad catch: cord : yes PP control planned: discussed discussed possible routes of delivery and associated risks: [] special requests: [] Specific Issue/Plans Covid status: [] Flu vaccine: [] Tdap vaccine: declines Rhogam: NA LARC form signed: yes Problem list reviewed and updated with the most current plan of care details and appropriate orders placed. Relevant counseling for the gestational age provided. Continue routine care and follow up unless otherwise noted in visit notes/problem list details Initial Weight: 217 lb Date -???-???-???-???-???-???- ???-???-???-???-???-???- EGA Weight BP Urine Prot -???-???-???-???-???-???- ???-???-???-???-???-???- Glucose FHR FuHt Pres Dilatio (more content not included)... Normal [facility] - Chemistry and C hemistry - challengeOrdered By: Gui Sloan on 09-20-2024 Glucose Ql (U) Negative [facility] - UrinalysisOrder ed By: Gui Sloan on 09-20-2024 Protein Ql (U) Negative [facility] Drum Worker Office Visit Reporton 09-20-2024 Drum Worker Office Visit Report [facility]'s [address], [address] [place] [address] OFFICE VISIT Date of Service: 09/20/24 MR#: [id number] Acct: [id number] Name: CLAUDIA FARFAN Rep #: [id number] 2 : 1995 Provider: KAREEM head Age/Sex: 28/F Location: [facility] [place] Status: Signed Intake Vital Signs 04/24/24 10:19 08/21/24 08:34 09/20/24 09:57 Height 5 ft 3 in 5 ft 3 in 5 ft 3 in Weight: 225 lb BMI 39.8 BP 108/66 Intake Visit Reasons: 30wk ob Chief Complaint: 30 Week OB Seismograph Recorder Required: No Is patient in pain?: No Allergies No Known Allergies Allergy (Verified 09/20/24 09:55) Medications ???Medication ???Instructions ???Recorded ???Confirmed ???Type folic acid 800 mcg tablet 0.8 mg PO DAILY 10/05/22 09/20/24 History ascorbic acid (vitamin C) 500 mg 500 mg PO DAILY 02/23/23 09/20/24 History tablet (C-500) magnesium 200 mg tablet 200 mg PO DAILY 02/23/23 09/20/24 History omega-3 fatty acids 500 mg PO DAILY 02/23/23 09/20/24 History PNV 153-FA 400 mcg-om3 35 mg-dha tab PO DAILY 04/18/24 09/20/24 His tory 25 mg-epa 5 mg-fish oil chew tablet cholecalciferol (vitamin D3) 25 4,000 unit PO DAILY 04/18/2409/20 History mcg (1,000 unit) capsule ondansetron 4 mg disintegrating 4 mg PO Q8H PRN nausea and 5 09/20/24 Rx tablet vomiting #30 tabs Last Menstrual Period: 02/23/24 Zika: Zika virus screening: Negative : Yes PFSH PFSH Medical History Postoperative abdominal pain Wears contact lenses Wears glasses Non-smoker Cholelithiasis Gallbladder sludge Gallbladder attack Vaginal delivery Surgical History S/P cholecystectomy History of surgery History of surgery History of surgery Family History Mother Asthma Grandfather Heart disease Maternal Hypertension Maternal CVA (cerebral vascular accident) Maternal Thyroid disorder Maternal Social History adopted: No household members: significant other, family and children housing: house number of children: 1 current occupational status: employed 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 current occupational exposures/hazards: No pets and animals: Yes pets and animals: dog(s) history of recent travel: No sexually active: Yes Smoking Status: Never smoker second hand exposure: No alcohol intake: current details: rarely socially- Not while substance use type: does not use well-balanced diet: daily or most days caffeine: Yes (Energy drink 200mg) Type: other Number of servings: 1 eating out: 1-3 times/week during the past year weight has: decreased > 10 lbs what type of physical activity do you participate in: none ronn/taoist: None seatbelt use: always do you feel safe at home: Yes additional social history: Boyfriend Pernell- Pest Control History 2 Elective abortions Hx Para 1 Spontaneous abortions Hx # Term Pregnancies 1 Ectopic pregnancies Hx # Pregnancies Multiple births # of living children 1 Past Pregnancies Del. Date Name GA/Weeks Outcome Route Bth Weight Infant Gen Labor Lgth Anesthesia Del Locatn Provider FOB 08/16/22 Singh 39 live - full term 7# 3oz Male [facility] KW/SM Delivery Date: 08/16/22 Last Updated by: Jovana Jon IOL abnl. NIPT HPI 30wk ob Details: CLAUDIA FARFAN is a 28 year old who presents for routine OB visit. OB Visit THOMAS Calculator Estimated Delivery Date Method Current WG Current Estimate 11/29/24 LMP (Certain) 30w 0d Other Estimates 11/29/24 Ultrasound #1 30w 0d Expected Delivery Route/Plan Labor Preferences- CB/BF classes: no labor support person: Pernell labor intervention preferences: [] pain management options preferred: epidural cut cord/dad catch: cord : yes PP control planned: discussed discussed possible routes of delivery and associated risks: [] special requests: [] Specific Issue/Plans Covid status: [] Flu vaccine: [] Tdap vaccine: declines Rhogam: NA LARC form signed: yes Problem list reviewed and updated with the most current plan of care details and appropriate orders placed. Relevant counseling for the gestational age provided. Continue routine care and follow up unless otherwise noted in visit notes/problem list details Initial Weight: 217 lb Date -???-???-???-???-???-???- ???-???-???-???-???-???- EGA Weight BP Urine Prot -???-???-???-???-???-???- ???-???-???-???-???-???- Glucose FHR FuHt Pres Dilation (more content not included)... Normal [facility] Absolute lymphocyte countOrd ered By: Rina Mead on 08-21-2024 Lymphocytes Auto (Unsp spec) [#/Vol] 1.95 10*3/uL 0.83-4.51 [facility] Absolute neutrophil countOrd ered By: Rina Mead on 08-21-2024 Neutrophils (Bld) [#/Vol] 9.3 10*3/uL High 2.0-7.7 [facility] Automated lymphocyte count a s percentage of total leukocytesOrdered By: Rina Mead on 08-21-2024 Lymphocytes/100 WBC Auto (Unsp spec) 16.3 % Low 19-41 [facility] Basophil percentageOrdered B y: Rina Mead on 08-21-2024 Basophils/100 WBC (Bld) 0.3 % 0-1 [facility] CBC W/Diff, Automatedon Absolute Lymph 1.95 X10 3/uL Normal 0.83-4.51 [facility] Comment on above: Performed By: #### M 100.2200, [id number] #### [facility] [address] [place], [address] Absolute Neut 9.3 X10 3/uL High 2.0-7.7 [facility] Comment on above: Performed By: #### M 100.2200, [id number] #### [facility] [address] [place], [address] Basophils/100 WBC (Bld) 0.3 % Normal 0-1 [facility] Comment on above: Performed By: #### M 100.2200, [id number] #### [facility] [address] [place], [address] Eosinophils/100 WBC (Bld) 0.3 % Normal 0-5 [facility] Comment on above: Performed By: #### M 100.2200, [id number] #### [facility] [address] [place], [address] Erythrocyte distribution width (RBC) [Ratio] 13.1 % Normal 11.6-14.6 [facility] Comment on above: Performed By: #### M 100.2200, [id number] #### [facility] [address] [place], [address] Hematocrit (Bld) [Volume fraction] 38.4 % Normal 37-47 [facility] Comment on above: Performed By: #### M 100.2200, [id number] #### [facility] [address] [place], [address] Hemoglobin (Bld) [Mass/Vol] 12.7 g/dL Normal 12.0-15.0 [facility] Comment on above: Performed By: #### M 100.2200, [id number] #### [facility] [address] [place], [address] IG% 0.900 Normal 0.0-0.9 [facility] Comment on above: Result Comment: IG% - Immature Granulocytes (promyelocytes, myelocytes and metamyelocytes) > 1% indicates that a LEFT SHIFT is Present. Performed By: #### M 100.2200, [id number] #### [place] [facility] [address] [place], [address] Lymphocytes/100 WBC (Bld) 16.3 % Low 19-41 [facility] Comment on above: Performed By: #### M 100.2200, L7000.1800 #### [place] [facility] [address] [place], [address] MCH (RBC) [Entitic mass] 29.6 pg Normal 27.0-32.0 [facility] Comment on above: Performed By: #### M 100.2200, L7000.1800 #### [facility] [address] [place], [address] MCHC (RBC) [Mass/Vol] 33.1 g/dL Normal 32-36 [facility] Comment on above: Performed By: #### M 100.2200, L7000.1800 #### [place] [facility] [address] [place], [address] MCV (RBC) [Entitic vol] 89.5 fL Normal 81-99 [facility] Comment on above: Performed By: #### M 100.2200, L7000.1800 #### [place] [facility] [address] [place], [address] Monocytes/100 WBC (Bld) 5.1 % Normal 0-10 [facility] Comment on above: Performed By: #### M 100.2200, L7000.1800 #### [place] [facility] [address] [place], [address] Neutrophils/100 WBC (Bld) 77.1 % High 47-70 [facility] Comment on above: Performed By: #### M 100.2200, L7000.1800 #### [place] [facility] [address] [place], [address] Nucleated RBC (Bld) [#/Vol] 0 10*3/uL Normal 0-5 [facility] Comment on above: Performed By: #### M 100.2200, L7000.1800 #### [place] [facility] [address] [place], [address] Platelet mean volume (Bld) [Entitic vol] 12.1 fL High 6.2-12.0 [facility] Comment on above: Performed By: #### M 100.2200, L7000.1800 #### [place] [facility] [address] [place], [address] Platelets (Bld) [#/Vol] 234 10*3/uL Normal 150-450 [facility] Comment on above: Performed By: #### M 100.2200, L7000.1800 #### [place] [facility] [address] [place], [address] RBC (Bld) [#/Vol] 4.29 10*6/uL Normal 4.2-5.4 [facility] Comment on above: Performed By: #### M 100.2200, L7000.1800 #### [place] [facility] [address] [place], [address] RDW SD 42.9 fl Normal 35.1-43.9 [facility] Comment on above: Performed By: #### M 100.2200, L7000.1800 #### [place] [facility] [address] [place], [address] WBC (Bld) [#/Vol] 12.0 10*3/uL High 4.4-11.0 [facility] Comment on above: Performed By: #### M 100.2200, L7000.1800 #### [place] [facility] [address] [place], [address] Eosinophil percentageOrdered By: Rina Mead on 08-21-2024 Eosinophils/100 WBC (Bld) 0.3 % 0-5 [facility] Erythrocyte distribution wid th (RBC) [Ratio]Ordered By: Rina Mead on 08-21-2024 Erythrocyte distribution width (RBC) [Entitic vol] 42.9 fL 35.1-43.9 [facility] Erythrocyte distribution wid th ratioOrdered By: Rian Mead on 08-21-2024 Erythrocyte distribution width (RBC) [Ratio] 13.1 % 11.6-14.6 [facility] Erythrocyte distribution wid th standard deviationOrdered By: Rnia Mead on 08-21-2024 Erythrocyte distribution width (RBC) [Ratio] 42.9 fl 35.1-43.9 [facility] Glucose Challenge Gest 1H 50 paola 08-21-2024 GLU GEST 50g 1H 111 mg/dL Normal 70-140 [facility] Comment on above: Performed By: #### M 100.2200, L7000.1800 #### [place] [facility] [address] [place], [address] Glucose measurement at 2 maciej rs post-dose gestational glucose tolerance testOrdered By: Rina Mead on 08-21-2024 Glucose [Mass/Vol] 111 mg/dL 70-140 [facility] HIVon 08-21-2024 HIV Non-Reactive Normal Nonreactive [facility] Comment on above: Result Comment: Non- Reactive Reactive Repeatedly reactive samples must be confirmed according to CDC recommended confirmatory algorithms. The subresults for either HIVAG or AHIV can be used as an aid in the selection of the confirmation algorithm for reactive samples. Send out specimens with Reactive results to [facility] for confirmation. Order the HIV antibody detection and differentiation: #[id number] Performed By: #### M 100.2200, L7000.1800 #### [place] [facility] [address] [place], [place], [address] Hematocrit Auto (Bld) [Volum e fraction]Ordered By: Rina Mead on 08-21-2024 Hematocrit (Bld) [Volume fraction] 38.4 % 37-47 [facility] Hemoglobin measurementOrdere d By: Rina Mead on 08-21-2024 Hemoglobin (Bld) [Mass/Vol] 12.7 g/dL 12.0-15.0 [facility] Immature granulocytes/100 WB C Auto (Bld)Ordered By: Rina Mead on 08-21-2024 Immature granulocytes/100 WBC (Bld) 0.900 % 0.0-0.9 [facility] Comment on above: IG% - Immature Granu locytes (promyelocytes, myelocytes and metamyelocytes) > 1% indicates that a LEFT SHIFT is Present. Laboratory - Chemistry and C hemistry - challengeOrdered By: Penelope Yang on 08-21-2024 Glucose Ql (U) Negative [facility] - UrinalysisOrder ed By: Penelope Yang on 08-21-2024 Protein Ql (U) Negative [facility] Lymphocytes Auto (Unsp spec) [#/Vol]Ordered By: Rina Mead on 08-21-2024 Lymphocytes (Bld) [#/Vol] 1.95 10*3/uL 0.83-4.51 [facility] Lymphocytes/100 WBC Auto (Un sp spec)Ordered By: Rina Mead on 08-21-2024 Lymphocytes/100 WBC (Bld) 16.3 % Low 19-41 [facility] MCV (mean corpuscular volume ) determinationOrdered By: Rina Maed on 08-21-2024 MCV (RBC) [Entitic vol] 89.5 fL 81-99 [facility] Mean corpuscular hemoglobin (MCH) determinationOrdered By: Rina Mead on 08-21-2024 MCH (RBC) [Entitic mass] 29.6 pg 27.0-32.0 [facility] Mean corpuscular hemoglobin concentration (MCHC) determinationOrdered By: Rina Mead on 08-21-2024 MCHC (RBC) [Mass/Vol] 33.1 g/dL 32-36 [facility] Mean platelet volume determi nationOrdered By: Rina Mead on 08-21-2024 Platelet mean volume (Bld) [Entitic vol] 12.1 fL High 6.2-12.0 [facility] Monocyte percentageOrdered B y: Rina Mead on 08-21-2024 Monocytes/100 WBC (Bld) 5.1 % 0-10 [facility] Neutrophil percentageOrdered By: Rina Mead on 08-21-2024 Neutrophils/100 WBC (Bld) 77.1 % High 47-70 [facility] No Panel InformationOrdered By: Penelope Yang on 08-21-2024 HIV (1&2) Antibody Non-Reactive Nonreactive [facility] Comment on above: Non-ReactiveReactive Repeatedly reactive samples must be confirmed according to CDC recommended confirmatory algorithms. The subresults for either HIVAG or AHIV can be used as an aid in the selection of the confirmation algorithm for reactive samples.Send out specimens with Reactive results to [facility] for confirmation.Order the HIV antibody detection and differentiation: #[id number] Nucleated red blood cell per centageOrdered By: Rina Mead on 08-21-2024 Nucleated RBC/100 WBC (Bld) [Ratio] 0 % 0-5 [facility] Drum Worker Office Visit Reporton 08-21-2024 Drum Worker Office Visit Report [facility] [address], [address] [place] [address] OFFICE VISIT Date of Service: 08/21/24 MR#: [id number] Acct: [id number] Name: CLAUDIA FARFAN MARLENE Rep #: [id number] 2 : 1995 Provider: Dr. Penelope byrne MD Age/Sex: 28/F Location: [facility] [place] Status: Signed Intake Vital Signs 04/24/24 10:19 07/28/24 08:38 08/21/24 08:31 08/21/24 08:34 Height 5 ft 3 in 5 ft 3 in 5 ft 3 in 5 ft 3 in Weight: 223 lb 8 oz BMI 39.6 BP 122/75 H Intake Visit Reasons: 26wk ob/glucose Seismograph Recorder Required: No Is patient in pain?: Yes (sciatic pain) Allergies No Known Allergies Allergy (Verified 08/21/24 08:31) Medications ???Medication ???Instructions ???Recorded ???Confirmed ???Type folic acid 800 mcg tablet 0.8 mg PO DAILY 10/05/22 08/21/24 History ascorbic acid (vitamin C) 500 mg 500 mg PO DAILY 02/23/23 08/21/24 History tablet (C-500) magnesium 200 mg tablet 200 mg PO DAILY 02/23/23 08/21/24 History omega-3 fatty acids 500 mg PO DAILY 02/23/23 08/21/24 History PNV 153-FA 400 mcg-om3 35 mg-dha tab PO DAILY 04/18/24 08/21/24 His tory 25 mg-epa 5 mg-fish oil chew tablet cholecalciferol (vitamin D3) 25 4,000 unit PO DAILY 04/18/2408/21 History mcg (1,000 unit) capsule ondansetron 4 mg disintegrating 4 mg PO Q8H PRN nausea and 5 08/21/24 Rx tablet vomiting #30 tabs Last Menstrual Period: 02/23/24 Zika: Zika virus screening: Negative : No PFSH PFSH Medical History Postoperative abdominal pain Wears contact lenses Wears glasses Non-smoker Cholelithiasis Gallbladder sludge Gallbladder attack Vaginal delivery Surgical History S/P cholecystectomy History of surgery History of surgery History of surgery Family History Mother Asthma Grandfather Heart disease Maternal Hypertension Maternal CVA (cerebral vascular accident) Maternal Thyroid disorder Maternal Social History adopted: No household members: significant other, family and children housing: house number of children: 1 current occupational status: employed 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 current occupational exposures/hazards: No pets and animals: Yes pets and animals: dog(s) history of recent travel: No sexually active: Yes Smoking Status: Never smoker second hand exposure: No alcohol intake: current details: rarely socially- Not while substance use type: does not use well-balanced diet: daily or most days caffeine: Yes (Energy drink 200mg) Type: other Number of servings: 1 eating out: 1-3 times/week during the past year weight has: decreased > 10 lbs what type of physical activity do you participate in: none ronn/taoist: None seatbelt use: always do you feel safe at home: Yes additional social history: Boyfriend Pernell- Pest Control History 2 Elective abortions Hx Para 1 Spontaneous abortions Hx # Term Pregnancies 1 Ectopic pregnancies Hx # Pregnancies Multiple births # of living children 1 Past Pregnancies Del. Date Name GA/Weeks Outcome Route Bth Weight Gen Labor Lgth Anesthesia Del Locatn Provider FOB 08/16/22 Singh 39 live - full term 7# 3oz Male [facility] KW/SM Delivery Date: 08/16/22 Last Updated by: Jovana Jon IOL abnl. NIPT HPI 26wk ob/glucose Details: CLAUDIA FARFAN is a 28 year old who presents for routine OB visit. OB Visit THOMAS Calculator Estimated Delivery Date Method Current WG Current Estimate 11/29/24 LMP (Certain) 25w 5d Other Estimates 11/29/24 Ultrasound #1 25w 5d Expected Delivery Route/Plan Labor Preferences- CB/BF classes: [] labor support person: [] labor intervention preferences: [] pain management options preferred: [] cut cord/dad catch: [] : [] PP control planned: [] discussed possible routes of delivery and associated risks: [] special requests: [] Specific Issue/Plans Covid status: [] Flu vaccine: [] Tdap vaccine: [] Rhogam: [] LARC form signed: [] Problem list reviewed and updated with the most current plan of care details and appropriate orders placed. Relevant counseling for the gestational age provided. Continue routine care and follow up unless otherwise noted in visit notes/problem list details Initial Weight: 217 lb Date -???-???-???-???-???-???- ???-???-???-???-???-???- EGA Weight BP Urine Prot -???-???-???-???-???-???- ???-???-???-???-???-???- Glucose FHR FuHt Pres Dilatio (more content not included)... Normal [facility] Platelet countOrdered By: Yumi Mead on 08-21-2024 Platelets (Bld) [#/Vol] 234 10*3/uL 150-450 [facility] RBC Auto (Bld) [#/Vol]Ordere d By: Rina Mead on 08-21-2024 RBC (Bld) [#/Vol] 4.29 10*6/uL 4.2-5.4 [facility] Syphilis Antibodieson 2024 Syphilis Abs Non-Reactive Normal Nonreactive [facility] Comment on above: Performed By: #### M 100.2200, L7000.1800 #### [facility] [address] [place], [address] T. pallidum abOrdered By: Dheeraj Yang on 08-21-2024 Syphilis Total Antibody Non-Reactive Nonreactive [facility] White blood cell (WBC) count Ordered By: Rina Mead on 08-21-2024 WBC (Bld) [#/Vol] 12.0 10*3/uL High 4.4-11.0 [facility] - Chemistry and C hemistry - challengeOrdered By: Rina Mead on 07-28-2024 Glucose Ql (U) Negative [facility] - UrinalysisOrder ed By: Rina Mead on 07-28-2024 Protein Ql (U) Negative [facility] Drum Worker Office Visit Reporton 07-28-2024 Drum Worker Office Visit Report [facility] [address], [address] [place] [address] OFFICE VISIT Date of Service: 07/28/24 MR#: [id number] Acct: [id number] Name: CLAUDIA FARFAN MARLENE Rep #: [id number] 6 : 1995 Provider: DEEPAK lewis Age/Sex: 28/F Location: [facility] [place] Status: Signed Intake Vital Signs 04/24/24 10:19 06/26/24 09:40 07/28/24 08:36 07/28/24 08:38 Height 5 ft 3 in 5 ft 3 in 5 ft 3 in 5 ft 3 in Weight: 222 lb BMI 39.3 BP 110/72 Intake Visit Reasons: 22wk ob Seismograph Recorder Required: No Is patient in pain?: No Allergies No Known Allergies Allergy (Verified 07/28/24 08:36) Medications ???Medication ???Instructions ???Recorded ???Confirmed ???Type folic acid 800 mcg tablet 0.8 mg PO DAILY 10/05/22 07/28/24 History ascorbic acid (vitamin C) 500 mg 500 mg PO DAILY 02/23/23 07/28/24 History tablet (C-500) magnesium 200 mg tablet 200 mg PO DAILY 02/23/23 07/28/24 History omega-3 fatty acids 500 mg PO DAILY 02/23/23 07/28/24 History PNV 153-FA 400 mcg-om3 35 mg-dha tab PO DAILY 04/18/24 07/28/24 His tory 25 mg-epa 5 mg-fish oil chew tablet cholecalciferol (vitamin D3) 25 4,000 unit PO DAILY 04/18/2407/28 History mcg (1,000 unit) capsule ondansetron 4 mg disintegrating 4 mg PO Q8H PRN nausea and 5 07/28/24 Rx tablet vomiting #30 tabs Last Menstrual Period: 02/23/24 : No Have you fallen in the past year?: No PFSH PFSH Medical History Postoperative abdominal pain Wears contact lenses Wears glasses Non-smoker Cholelithiasis Gallbladder sludge Gallbladder attack Vaginal delivery Surgical History S/P cholecystectomy History of surgery History of surgery History of surgery Family History Mother Asthma Grandfather Heart disease Maternal Hypertension Maternal CVA (cerebral vascular accident) Maternal Thyroid disorder Maternal Social History adopted: No household members: significant other, family and children housing: house number of children: 1 current occupational status: employed 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 current occupational exposures/hazards: No pets and animals: Yes pets and animals: dog(s) history of recent travel: No sexually active: Yes Smoking Status: Never smoker second hand exposure: No alcohol intake: current details: rarely socially- Not while substance use type: does not use well-balanced diet: daily or most days caffeine: Yes (Energy drink 200mg) Type: other Number of servings: 1 eating out: 1-3 times/week during the past year weight has: decreased > 10 lbs what type of physical activity do you participate in: none ronn/taoist: None seatbelt use: always do you feel safe at home: Yes additional social history: Boyfriend Pernell- Pest Control History 2 Elective abortions Hx Para 1 Spontaneous abortions Hx # Term Pregnancies 1 Ectopic pregnancies Hx # Pregnancies Multiple births # of living children 1 Past Pregnancies Del. Date Name GA/Weeks Outcome Route Bth Weight Infant Gen Labor Lgth Anesthesia Del Locatn Provider FOB 08/16/22 Singh 39 live - full term 7# 3oz Male [facility] KW/SM Delivery Date: 08/16/22 Last Updated by: Jovana Jon IOL abnl. NIPT HPI 22wk ob Details: CLAUDIA FARFAN is a 28 year old who presents for routine OB visit. OB Visit THOMAS Calculator Estimated Delivery Date Method Current WG Current Estimate 11/29/24 LMP (Certain) 22w 2d Other Estimates 11/29/24 Ultrasound #1 22w 2d Expected Delivery Route/Plan Labor Preferences- CB/BF classes: [] labor support person: [] labor intervention preferences: [] pain management options preferred: [] cut cord/dad catch: [] : [] PP control planned: [] discussed possible routes of delivery and associated risks: [] special requests: [] Specific Issue/Plans Covid status: [] Flu vaccine: [] Tdap vaccine: [] Rhogam: [] LARC form signed: [] Problem list reviewed and updated with the most current plan of care details and appropriate orders placed. Relevant counseling for the gestational age provided. Continue routine care and follow up unless otherwise noted in visit notes/problem list details Initial Weight: 217 lb Date -???-???-???-???-???-???- ???-???-???-???-???-???- EGA Weight BP Urine Prot -???-???-???-???-???-???- ???-???-???-???-???-???- Glucose FHR FuHt Pres Dilation -???-???-???-???-???-???- ???-???-???-???-???-???- (more content not included)... Normal [facility] - Chemistry and C hemistry - challengeOrdered By: Cristy Abreu on 06-26-2024 Glucose Ql (U) Negative [facility] - UrinalysisOrder ed By: Cristy Abreu on 06-26-2024 Protein Ql (U) Negative [facility] Drum Worker Office Visit Reporton 06-26-2024 Drum Worker Office Visit Report [facility] [address], [address] [place] [address] OFFICE VISIT Date of Service: 06/26/24 MR#: [id number] Acct: [id number] Name: CLAUDIA FARFAN MARLENE Rep #: [id number] 5 : 1995 Provider: DEEPAK Traylor ams Age/Sex: 28/F Location: [facility] [place] Status: Signed Intake Vital Signs 04/24/24 10:19 05/24/24 08:31 06/26/24 09:40 Height 5 ft 3 in 5 ft 3 in 5 ft 3 in Weight: 216 lb 215 lb 2 oz BMI 38.2 38.1 BP 116/72 119/76 Intake Visit Reasons: 16 WK OB Chief Complaint: 16wk OB Is patient in pain?: No Allergies No Known Allergies Allergy (Verified 06/26/24 09:38) Medications ???Medication ???Instructions ???Recorded ???Confirmed ???Type folic acid 800 mcg tablet 0.8 mg PO DAILY 10/05/22 06/26/24 History ascorbic acid (vitamin C) 500 mg 500 mg PO DAILY 02/23/23 06/26/24 History tablet (C-500) magnesium 200 mg tablet 200 mg PO DAILY 02/23/23 06/26/24 History omega-3 fatty acids 500 mg PO DAILY 02/23/23 06/26/24 History PNV 153-FA 400 mcg-om3 35 mg-dha tab PO DAILY 04/18/24 06/26/24 His tory 25 mg-epa 5 mg-fish oil chew tablet cholecalciferol (vitamin D3) 25 4,000 unit PO DAILY 04/18/2406/26 History mcg (1,000 unit) capsule ondansetron 4 mg disintegrating 4 mg PO Q8H PRN nausea and 4 06/26/24 Rx tablet vomiting #30 tabs Last Menstrual Period: 02/23/24 : No PFSH PFSH Medical History Postoperative abdominal pain Wears contact lenses Wears glasses Non-smoker Cholelithiasis Gallbladder sludge Gallbladder attack Vaginal delivery Surgical History S/P cholecystectomy History of surgery History of surgery History of surgery Family History Mother Asthma Grandfather Heart disease Maternal Hypertension Maternal CVA (cerebral vascular accident) Maternal Thyroid disorder Maternal Social History adopted: No household members: significant other, family and children housing: house number of children: 1 current occupational status: employed 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 current occupational exposures/hazards: No pets and animals: Yes pets and animals: dog(s) history of recent travel: No sexually active: Yes Smoking Status: Never smoker second hand exposure: No alcohol intake: current details: rarely socially- Not while substance use type: does not use well-balanced diet: daily or most days caffeine: Yes (Energy drink 200mg) Type: other Number of servings: 1 eating out: 1-3 times/week during the past year weight has: decreased > 10 lbs what type of physical activity do you participate in: none ronn/taoist: None seatbelt use: always do you feel safe at home: Yes additional social history: Boyfriend Pernell- Pest Control History 2 Elective abortions Hx Para 1 Spontaneous abortions Hx # Term Pregnancies 1 Ectopic pregnancies Hx # Pregnancies Multiple births # of living children 1 Past Pregnancies Del. Date Name GA/Weeks Outcome Route Bth Weight Gen Labor Lgth Anesthesia Del Locatn Provider FOB 08/16/22 Singh 39 live - full term 7# 3oz Male [facility] KW/SM Delivery Date: 08/16/22 Last Updated by: Jovana Jon IOL abnl. NIPT HPI 16 WK OB Details: CLAUDIA FARFAN is a 28 year old who presents for routine OB visit. OB Visit THOMAS Calculator Estimated Delivery Date Method Current WG Current Estimate 11/29/24 LMP (Certain) 17w 5d Other Estimates 11/29/24 Ultrasound #1 17w 5d Expected Delivery Route/Plan Labor Preferences- CB/BF classes: [] labor support person: [] labor intervention preferences: [] pain management options preferred: [] cut cord/dad catch: [] : [] PP control planned: [] discussed possible routes of delivery and associated risks: [] special requests: [] Specific Issue/Plans Covid status: [] Flu vaccine: [] Tdap vaccine: [] Rhogam: [] LARC form signed: [] Problem list reviewed and updated with the most current plan of care details and appropriate orders placed. Relevant counseling for the gestational age provided. Continue routine care and follow up unless otherwise noted in visit notes/problem list details Initial Weight: 217 lb Date -???-???-???-???-???-???- ???-???-???-???-???-???- EGA Weight BP Urine Prot -???-???-???-???-???-???- ???-???-???-???-???-???- Glucose FHR FuHt Pres Dilation -???-???-???-???-???-???- ???-???-???-???-???-???- Effaced St Vi (more content not included)... Normal [facility] - Chemistry and C hemistry - challengeon 05-24-2024 Glucose Ql (U) Negative [facility] - Urinalysison Protein Ql (U) Negative [facility] Drum Worker Office Visit Reporton 01-08-2025 Drum Worker Office Visit Report [facility] [address] [place] [address], [address] [place] [address] OFFICE VISIT Date of Service: 05/24/24 MR#: [id number] Acct: [id number] Name: CLAUDIA FARFAN Rep #: [id number] : 1995 Provider: KAREEM head Age/Sex: 28/F Location: [facility] [place] Status: Signed Intake Vital Signs 03/12/23 14:17 04/24/24 10:19 05/24/24 08:31 Height 5 ft 3 in 5 ft 3 in 5 ft 3 in Weight: 216 lb BMI 38.2 BP 116/72 Intake Visit Reasons: 12wk OB Chief Complaint: 12 Week OB Seismograph Recorder Required: No Is patient in pain?: No Allergies No Known Allergies Allergy (Verified 05/24/24 08:30) Medications ???Medication ???Instructions ???Recorded ???Confirmed ???Type folic acid 800 mcg tablet 0.8 mg PO DAILY 10/05/22 05/24/24 History ascorbic acid (vitamin C) 500 mg 500 mg PO DAILY 02/23/23 05/24/24 History tablet (C-500) magnesium 200 mg tablet 200 mg PO DAILY 02/23/23 05/24/24 History omega-3 fatty acids 500 mg PO DAILY 02/23/23 05/24/24 History PNV 153-FA 400 mcg-om3 35 mg-dha tab PO DAILY 04/18/24 05/24/24 History 25 mg-epa 5 mg-fish oil chew tablet cholecalciferol (vitamin D3) 25 4,000 unit PO DAILY 04/18/24 05/24/24 History mcg (1,000 unit) capsule ondansetron 4 mg disintegrating 4 mg PO Q8H PRN nausea and 04/24/24 05/24/24 Rx tablet vomiting #30 tabs Last Menstrual Period: 02/23/24 Zika: Zika virus screening: Negative : No PFSH PFSH Medical History Postoperative abdominal pain Wears contact lenses Wears glasses Non-smoker Cholelithiasis Gallbladder sludge Gallbladder attack Vaginal delivery Surgical History S/P cholecystectomy History of surgery History of surgery History of surgery Family History Mother Asthma Grandfather Heart disease Maternal Hypertension Maternal CVA (cerebral vascular accident) Maternal Thyroid disorder Maternal Social History adopted: No household members: significant other, family and children housing: house number of children: 1 current occupational status: employed 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 current occupational exposures/hazards: No pets and animals: Yes pets and animals: dog(s) history of recent travel: No sexually active: Yes Smoking Status: Never smoker second hand exposure: No alcohol intake: current details: rarely socially- Not while substance use type: does not use well-balanced diet: daily or most days caffeine: Yes (Energy drink 200mg) Type: other Number of servings: 1 eating out: 1-3 times/week during the past year weight has: decreased > 10 lbs what type of physical activity do you participate in: none ronn/taoist: None seatbelt use: always do you feel safe at home: Yes additional social history: Boyfriend Pernell- Pest Control History 2 Elective abortions Hx Para 1 Spontaneous abortions Hx # Term Pregnancies 1 Ectopic pregnancies Hx # Pregnancies Multiple births # of living children 1 Past Pregnancies Del. Date Name GA/Weeks Outcome Route Bth Weight Infant Gen Labor Lgth Anesthesia Del Locatn Provider FOB 08/16/22 Singh 39 live - full term 7# 3oz Male [facility] KW/SM Delivery Date: 08/16/22 Last Updated by: Jovana Jon IOL abnl. NIPT HPI 12wk OB Details: CLAUDIA FARFAN is a 28 year old who presents for routine OB visit. OB Visit THOMAS Calculator Estimated Delivery Date Method Current WG Current Estimate 11/29/24 LMP (Certain) 13w 0d Other Estimates 11/29/24 Ultrasound #1 13w 0d Expected Delivery Route/Plan Labor Preferences- CB/BF classes: [] labor support person: [] labor intervention preferences: [] pain management options preferred: [] cut cord/dad catch: [] : [] PP control planned: [] discussed possible routes of delivery and associated risks: [] special requests: [] Specific Issue/Plans Covid status: [] Flu vaccine: [] Tdap vaccine: [] Rhogam: [] LARC form signed: [] Problem list reviewed and updated with the most current plan of care details and appropriate orders placed. Relevant counseling for the gestational age provided. Continue routine care and follow up unless otherwise noted in visit notes/problem list details Initial Weight: Not Recorded Date -???-???-???-???-???-???- ???-???-???-???-???-???- EGA Weight BP Urine Prot -???-???-???-???-???-???- ???-???-???-???-???-???- Glucose FHR FuHt Pres Dilation -???-???-???-???-???-???- ???-???-???-? (more content not included)... Normal [facility] Chlamydia/GC ABBY aptimaon CHLAMY,NUC ACID Negative Normal Negative [facility] Comment on above: Performed By: #### M 100.2200, L7000.1800 #### [facility] [address] [place], [place], [id number] GC BY NUC ACID Negative Normal Negative [facility] Comment on above: Result Comment: Perf ormed at: =G - [facility] [address] [id number] Poker Room Manager: Elisabeth Bui MD, Phone: [phone] Performed By: #### M 100.2200, L7000.1800 #### [facility] [address] [place], [place], [address] Urine Cultureon 04-25-2024 URC Culture exhibits no growth. Normal [facility] Comment on above: Performed By: #### M 100.2200, L7000.1800 #### [facility] [address] [place], [address] CBC W/Diff, Automatedon 12-0 -2023 Absolute Lymph 2.41 X10 3/uL Normal 0.83-4.51 [facility] Comment on above: Performed By: #### M 100.2200, L7000.1800 #### [facility] [address] [place], [address] Absolute Neut 7.3 X10 3/uL Normal 2.0-7.7 [facility] Comment on above: Performed By: #### M 100.2200, L7000.1800 #### [facility] [address] [place], [address] Basophils/100 WBC (Bld) 0.5 % Normal 0-1 [facility] Comment on above: Performed By: #### M 100.2200, L7000.1800 #### [facility] [address] [place], [address] Eosinophils/100 WBC (Bld) 0.4 % Normal 0-5 [facility] Comment on above: Performed By: #### M 100.2200, L7000.1800 #### [facility] [address] [place], [address] Erythrocyte distribution width (RBC) [Ratio] 12.2 % Normal 11.6-14.6 [facility] Comment on above: Performed By: #### M 100.2200, L7000.1800 #### [facility] [address] [place], [address] Hematocrit (Bld) [Volume fraction] 42.1 % Normal 37-47 [facility] Comment on above: Performed By: #### M 100.2200, L7000.1800 #### [facility] [address] [place], [address] Hemoglobin (Bld) [Mass/Vol] 14.3 g/dL Normal 12.0-15.0 [facility] Comment on above: Performed By: #### M 100.2200, L7000.1800 #### [facility] [address] [place], [address] IG% 0.800 Normal 0.0-0.9 [facility] Comment on above: Result Comment: IG% - Immature Granulocytes (promyelocytes, myelocytes and metamyelocytes) > 1% indicates that a LEFT SHIFT is Present. Performed By: #### M 100.2200, L7000.1800 #### [facility] [address] [place], [address] Lymphocytes/100 WBC (Bld) 22.8 % Normal 19-41 [facility] Comment on above: Performed By: #### M 100.2200, L7000.1800 #### [facility] [address] [place], [address] MCH (RBC) [Entitic mass] 29.7 pg Normal 27.0-32.0 [facility] Comment on above: Performed By: #### M 100.2200, L7000.1800 #### [facility] [address] [place], [address] MCHC (RBC) [Mass/Vol] 34.0 g/dL Normal 32-36 [facility] Comment on above: Performed By: #### M 100.2200, L7000.1800 #### [facility] [address] [place], [address] MCV (RBC) [Entitic vol] 87.3 fL Normal 81-99 [facility] Comment on above: Performed By: #### M 100.2200, L7000.1800 #### [facility] [address] [place], [address] Monocytes/100 WBC (Bld) 6.8 % Normal 0-10 [facility] Comment on above: Performed By: #### M 100.2200, L7000.1800 #### [facility] [address] [place], [address] Neutrophils/100 WBC (Bld) 68.7 % Normal 47-70 [facility] Comment on above: Performed By: #### M 100.2200, L7000.1800 #### [facility] [address] [place], [address] Nucleated RBC (Bld) [#/Vol] 0 10*3/uL Normal 0-5 [facility] Comment on above: Performed By: #### M 100.2200, L7000.1800 #### [facility] [address] [place], [address] Platelet mean volume (Bld) [Entitic vol] 10.9 fL Normal 6.2-12.0 [facility] Comment on above: Performed By: #### M 100.2200, L7000.1800 #### [facility] [address] [place], [address] Platelets (Bld) [#/Vol] 293 10*3/uL Normal 150-450 [facility] Comment on above: Performed By: #### M 100.2200, L7000.1800 #### [facility] [address] [place], [address] RBC (Bld) [#/Vol] 4.82 10*6/uL Normal 4.2-5.4 [facility] Comment on above: Performed By: #### M 100.2200, L7000.1800 #### [facility] [address] [place], [address] RDW SD 38.8 fl Normal 35.1-43.9 [facility] Comment on above: Performed By: #### M 100.2200, L7000.1800 #### [facility] [address] [place], [address] WBC (Bld) [#/Vol] 10.6 10*3/uL Normal 4.4-11.0 [facility] Comment on above: Performed By: #### M 100.2200, L7000.1800 #### [facility] [address] [place], [address] HIV - WCHon 04-24-2024 HIV Non-Reactive Normal Nonreactive [facility] Comment on above: Order Comment: Reaso n for Exam: Performed By: #### M 100.2200, L7000.1800 #### [facility] [address] [place], [address] Hepatitis B Surface Antigeno n 04-24-2024 HEP B Surf Ag Non-Reactive Normal [facility] Comment on above: Order Comment: Reaso n for Exam: Performed By: #### M 100.2200, L7000.1800 #### [facility] [address] [place], [address] Hepatitis C Antibodyon 04-24 Hepatitis C AB Non-Reactive Normal Nonreactive [facility] Comment on above: Order Comment: Reaso n for Exam: Result Comment: Non Reactive: < 0.8 Equivocal: >/= 0.8 to < 1.0 Reactive: >/= 1.0 The CDC requires that a reactive/equivocal HCV antibody result be sent out for confirmation. HCV Quant by PCR testing. Performed By: #### M 100.2200, L7000.1800 #### [facility] [address] [place], [address] L509.8000on 04-24-2024 Syphilis Abs Non-Reactive Normal [facility] Comment on above: Order Comment: Reaso n for Exam: Performed By: #### M 100.2200, L7000.1800 #### [facility] [address] [place], [address] Drum Worker Office Visit Reporton 04-24-2024 Drum Worker Office Visit Report [facility] [address], [address] [place] [address] OFFICE VISIT Date of Service: 04/24/24 MR#: [id number] Acct: [id number] Name: CLAUDIA FARFAN Rep #: [id number] 1 : 1995 Provider: Dr. Evelyn Becker DO Age/Sex: 28/F Location: [facility] [place] Status: Signed Intake Vital Signs 03/12/23 14:17 04/24/24 10:18 04/24/24 10:19 Height 5 ft 3 in 5 ft 3 in 5 ft 3 in Weight: 217 lb BMI 38.4 BP 119/74 Intake Visit Reasons: NOB LMP 02/22 Seismograph Recorder Required: No Is patient in pain?: No Allergies No Known Allergies Allergy (Verified 04/24/24 10:18) Medications ???Medication ???Instructions ???Recorded ???Confirmed ???Type folic acid 800 mcg tablet 0.8 mg PO DAILY 10/05/22 04/24/24 History ascorbic acid (vitamin C) 500 mg 500 mg PO DAILY 02/23/23 04/24/24 History tablet (C-500) magnesium 200 mg tablet 200 mg PO DAILY 02/23/23 04/24/24 History omega-3 fatty acids 500 mg PO DAILY 02/23/23 04/24/24 History PNV 153-FA 400 mcg-om3 35 mg-dha tab PO DAILY 04/18/24 04/24/24 History 25 mg-epa 5 mg-fish oil chew tablet cholecalciferol (vitamin D3) 25 4,000 unit PO DAILY 04/18/24 04/24/24 History mcg (1,000 unit) capsule ondansetron 4 mg disintegrating 4 mg PO Q8H PRN nausea and 04/24/24 04/24/24 Rx tablet vomiting #30 tabs Last Menstrual Period: 02/23/24 Zika: Zika virus screening: Negative : No PFSH PFSH Medical History Postoperative abdominal pain Wears contact lenses Wears glasses Non-smoker Cholelithiasis Gallbladder sludge Gallbladder attack Vaginal delivery Surgical History S/P cholecystectomy History of surgery History of surgery History of surgery Family History Mother Asthma Grandfather Heart disease Maternal Hypertension Maternal CVA (cerebral vascular accident) Maternal Thyroid disorder Maternal Social History adopted: No household members: significant other, family and children housing: house number of children: 1 service: No current occupational status: employed 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 current occupational exposures/hazards: No pets and animals: Yes pets and animals: dog(s) history of recent travel: No sexually active: Yes Smoking Status: Never smoker second hand exposure: No alcohol intake: current details: rarely socially- Not while substance use type: does not use well-balanced diet: daily or most days caffeine: Yes (Energy drink 200mg) Type: other Number of servings: 1 eating out: 1-3 times/week during the past year weight has: decreased > 10 lbs what type of physical activity do you participate in: none ronn/taoist: None seatbelt use: always do you feel safe at home: Yes additional social history: Boyfriend Pernell- Pest Control History 2 Elective abortions Hx Para 1 Spontaneous abortions Hx # Term Pregnancies 1 Ectopic pregnancies Hx # Pregnancies Multiple births # of living children 1 Past Pregnancies Del. Date Name GA/Weeks Outcome Route Bth Weight Gen Labor Lgth Anesthesia Del Locatn Provider FOB 08/16/22 Singh 39 live - full term 7# 3oz Male [facility] KW/SM Delivery Date: 08/16/22 Last Updated by: Jovana Jon IOL abnl. NIPT HPI NOB LMP 02/22 Details: CLAUDIA FARFAN is a 28 year old who presents for New OB visit. OB Visit THOMAS Calculator Estimated Delivery Date Method Current WG Current Estimate 11/29/24 LMP (Certain) 8w 5d Other Estimates 11/29/24 Ultrasound #1 8w 5d Comments: HIV: Urine Culture: Sequential Screen: NIPT Screen: Estimated Due Date: 11/30/23 Expected Delivery Route/Plan Labor Preferences- CB/BF classes: [] labor support person: [] labor intervention preferences: [] pain management options preferred: [] cut cord/dad catch: [] : [] PP control planned: [] discussed possible routes of delivery and associated risks: [] special requests: [] Specific Issue/Plans Covid status: [] Flu vaccine: [] Tdap vaccine: [] Rhogam: [] LARC form signed: [] Problem list reviewed and updated with the most current plan of care details and appropriate orders placed. Relevant counseling for the gestational age provided. Continue routine care and follow up unless otherwise noted in visit notes/problem list details Initial Weight: Not Recorded Date -???-???-???-???-???-???- ???-???-???-???-???-???- EGA Weight BP Urine Prot -???-???-???-??? (more content not included)... Normal [facility] Rubella IgGon 04-24-2024 Rubella IgG Reactive Normal Nonreactive [facility] Comment on above: Order Comment: Reaso n for Exam: Result Comment: Anti body Results Interpretation of Immune Status Non Reactive Presumed Non-Immune Equivocal Equivocal Reactive Presumed Immune Performed By: #### M 100.2200, L7000.1800 #### [facility] [address] [place], [place], [address] Type AND Screenon 04-24-2024 ABO and Rh group Nom (Bld) Blood group A Rh(D) positive Normal [facility] Comment on above: Order Comment: PN Performed By: #### M 100.2200, L7000.1800 #### [facility] [address] [place], [place], [address] CNOVon 03-17-2024 CNOV Office Visit ([facility]) ----- CLAUDIA FARFAN ([id number]) 1995 F Date Time Provider Department 03/17/24 9:00 AM [facility]OR [place] During your visit today, we recorded the following information about you: Temperature Pulse Blood pressure Weight 97.7 degrees 72/minute 110/70 91.6 kg Height 1.6 m Hector Winchester, CURTAIN ROLLER ASSEMBLER.DISASTER RECOVERY COORDINATOR 03/26/2024 2:27 PM Signed Subjective Claudia Farfan is a 28 year old female here today for follow-up anxiety. I reviewed past medical, surgical, social, and family histories today and updated chart. Allergies, chronic medications, and supplements were also reviewed. 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 - new Itchy Past couple of days - having shakiness Drinks energy drink, fasts a little then eats high protein diet Then about 30 min after eating her hands will get very shaky She was able to check her blood sugar and it was 99 She felt a little off with this yesterday and was able to just sit and relax Happened at work the other day and felt very weak and sick, no nausea, just weak PAST MEDICAL HISTORY Diagnosis Date Avulsion fracture of left hip (HCC) 2007 Environmental allergies Generalized anxiety disorder Insulin resistance PCOS (polycystic ovarian syndrome) PAST SURGICAL HISTORY Procedure Laterality Date CYSTO.PANENDO 2000 Cyst removed under tongue EXTRACTION ERUPTED TOOTH/EXR REMOVAL GALLBLADDER feb 2023 TONSILLECTOMY AND ADENOIDECTOMY ALLERGIES Patient has no known allergies. MEDICATIONS FLUoxetine (PROZAC) 10 mg capsule Take 2 capsules by mouth once daily for 14 days, THEN 1 capsule once daily for 7 days, THEN 1 capsule every other day for 7 days. FAMILY HISTORY Problem Relation Age of Onset other (Hysterectomy) Mother 40 GERD Mother Diabetes Father Depression Brother COPD Maternal Grandmother Heart Attack Maternal Grandfather Stroke Maternal Grandfather Hypothyroidism Maternal Grandfather COPD Paternal Grandmother Heart Attack Paternal Grandfather other (Esophageal Cancer) Other Breast Cancer Other Social History Tobacco Use Smoking status: Never Smokeless tobacco: Never Substance Use Topics Alcohol use: Yes Comment: maybe twice a year Drug use: Never Review of Systems Constitutional: Negative for appetite change, chills, fatigue, fever and unexpected weight change. HENT: Negative for congestion, ear pain, rhinorrhea and sore throat. Eyes: Negative for pain, discharge, itching and visual disturbance. Respiratory: Negative for cough, shortness of breath and wheezing. Cardiovascular: Negative for chest pain, palpitations and leg swelling. Gastrointestinal: Negative for abdominal pain, constipation, diarrhea, nausea and vomiting. Genitourinary: Negative for difficulty urinating. Musculoskeletal: Negative for arthralgias. Skin: Positive for rash. Neurological: Negative for dizziness, tremors, weakness and headaches. Psychiatric/Behavioral: Negative for dysphoric mood and sleep disturbance. The patient is not nervous/anxious. Objective BP 110/70 Pulse 72 Temp 97.7 Ht 5' 3 (1.60m) Wt 202 lb (91.6kg) SpO2 98% BMI 35.79 kg/(m2). Physical Exam HENT: Head: Normocephalic and atraumatic. Eyes: Conjunctiva/sclera: Conjunctivae normal. Pupils: Pupils are equal, round, and reactive to light. Cardiovascular: Rate and Rhythm: Normal rate and regular rhythm. Pulses: Normal pulses. Heart sounds: Normal heart sounds. Pulmonary: Effort: Pulmonary effort is normal. Breath sounds: Normal breath sounds. Musculoskeletal: Cervical back: Normal range of motion and neck supple. Lymphadenopathy: Cervical: No cervical adenopathy. Skin: General: Skin is warm and dry. Findings: Rash present. Neurological: General: No focal deficit present. Mental Status: She is alert and oriented to person, place, and time. Cranial Nerves: No cranial nerve deficit. Sensory: Sensation is intact. Motor: Motor function is intact. Coordination: Coordination is intact. Psychiatric: Attention and Perception: Attention and perception normal. Mood and Affect: Mood and affect normal. Mood is not anxious or depressed. Affect is not labile or inappropriate. Speech: Speech normal. Behavior: Behavior normal. Behavior is not agitated. Thought Content: Thought content normal. Thought content does not include suicidal ideation. Cognition and Memory: Cognition normal. Judgment: Judgment normal. J (more content not included)... Normal [facility] Diane 02-16-2024 LAURA Telephone (AGFAMPLE) ----- CLAUDIA FARFAN ([id number]) 1995 F Date Time Provider Department 02/16/24 [facility]OR [place] During your visit today, we recorded the following information about you: Mitul Donohue MA 02/16/2024 2:44 PM Signed ----- Message from Hector Winchester APRN.DISASTER RECOVERY COORDINATOR sent at 02/16/2024 2:41 PM EDT ----- Please notify patient results are normal. Thank you. Hector Winchester APRN.Mitul Rowe MA 02/16/2024 2:44 PM Signed Patient notified. Mitul Donohue MA Allergies As of Date: 02/16/2024 (No Known Allergies) Date Reviewed: 01/04/2024 Reviewed by: Hector Winchester APRN.ALLIE - Fully Assessed Reason for Visit: Results [95] Prescriptions as of 02/16/2024 - FLUoxetine (PROZAC) 40 mg capsule Take 1 capsule by mouth once daily. Problem List As Of Date 02/16/2024 Noted Resolved MADDIE (generalized anxiety disorder) [F41.1] 01/04/2024 Environmental allergies [Z91.09] Insulin resistance [E88.819] PCOS (polycystic ovarian syndrome) [E28.2] Encounter Status:Closed by MITUL DONOHUE on 02/16/24 Normal [facility] Urinalysis complete panel (U )on 02-15-2024 Bacteria LM.HPF (Urine sed) [#/Area] Negative Normal Negative [facility] Comment on above: Order Comment: Speci men Type: URINE SPECIMEN Ordering Facility: [facility] Address: [address], [place] [address] Performed By: #### 2 4356-8 #### [facility] CLIA [id number] [address] [place] [address] [place] Bilirubin Ql (U) Negative Normal Negative [facility] Comment on above: Order Comment: Speci men Type: URINE SPECIMEN Ordering Facility: [facility] Address: [address] [place] [address] Performed By: #### 2 4356-8 #### [facility] CLIA [id number] [address] [place] [address] [place] Clarity (Unsp spec) Clear Normal Clear [facility] Comment on above: Order Comment: Speci men Type: URINE SPECIMEN Ordering Facility: [facility] Address: [address] [place] [address] Performed By: #### 2 4356-8 #### [facility] CLIA [id number] [address] [place] [address] [place] Color (U) Yellow Normal Yellow [facility] Comment on above: Order Comment: Speci men Type: URINE SPECIMEN Ordering Facility: [facility] Address: [address] [place] [address] Performed By: #### 2 4356-8 #### [facility] CLIA [id number] [address] [place] [address] [place] Epithelial cells LM.HPF (Urine sed) [#/Area] None Seen Normal [facility] Comment on above: Order Comment: Speci men Type: URINE SPECIMEN Ordering Facility: [facility] Address: [address] [place], [place] [address] Performed By: #### 2 4356-8 #### [facility] CLIA [id number] [address] [place] [address] [place] Glucose Test strip (U) [Mass/Vol] Negative Normal Negative [facility] Comment on above: Order Comment: Speci men Type: URINE SPECIMEN Ordering Facility: [facility] Address: [address] [place] [address] Performed By: #### 2 4356-8 #### [facility] CLIA [id number] [address] [place] [address] [place] Hemoglobin Ql (U) Negative Normal Negative [facility] Comment on above: Order Comment: Speci men Type: URINE SPECIMEN Ordering Facility: [facility] Address: [address] [place] [address] Performed By: #### 2 4356-8 #### [facility] CLIA [id number] [address] [place] [address] [place] Hyaline casts (Urine sed) [#/Area] 0 /[LPF] Normal 0 /LPF [facility] Comment on above: Order Comment: Speci men Type: URINE SPECIMEN Ordering Facility: [facility] Address: [address] [place] [address] Performed By: #### 2 4356-8 #### [facility] CLIA [id number] [address] [place] [address] [place] Ketones Ql (U) Negative Normal Negative [facility] Comment on above: Order Comment: Speci men Type: URINE SPECIMEN Ordering Facility: [facility] Address: [address] [place] [address] Performed By: #### 2 4356-8 #### [facility] CLIA [id number] [address] [place] [address] [place] Leukocyte esterase Test strip Ql (U) Trace Abnormal Negative [facility] Comment on above: Order Comment: Speci men Type: URINE SPECIMEN Ordering Facility: [facility] Address: [address] [place] [address] Performed By: #### 2 4356-8 #### [facility] CLIA [id number] [address] [place] [address] [place] Nitrite Ql (U) Negative Normal Negative [facility] Comment on above: Order Comment: Speci men Type: URINE SPECIMEN Ordering Facility: [facility] Address: [address] [place] [address] Performed By: #### 2 4356-8 #### [facility] CLIA [id number] [address] [place] [address] [place] pH (U) 7.0 [pH] Normal <8.5 [facility] Comment on above: Order Comment: Speci men Type: URINE SPECIMEN Ordering Facility: [facility] Address: [address] [place] [address] Performed By: #### 2 4356-8 #### [facility] CLIA [id number] [address] [place] [address] [place] Protein (U) [Mass/Vol] Negative Normal Negative [facility] Comment on above: Order Comment: Speci men Type: URINE SPECIMEN Ordering Facility: [facility] Address: [address] [place] [address] Performed By: #### 2 4356-8 #### [facility] CLIA [id number] [address] [place] [address] [place] RBC LM.HPF (Urine sed) [#/Area] 0-2 /HPF Normal 0-2 /HPF [facility] Comment on above: Order Comment: Speci men Type: URINE SPECIMEN Ordering Facility: [facility] Address: [address] [place] [address] Performed By: #### 2 4356-8 #### [facility] [facility] CLIA [id number] [address] [place] [address] [place] Specific gravity (U) [Rel density] 1.021 Normal 1.005-1.030 [facility] Comment on above: Order Comment: Speci men Type: URINE SPECIMEN Ordering Facility: [facility] Address: [address] [place] [address] Performed By: #### 2 4356-8 #### [facility] CLIA [id number] [address] [place] [address] [place] Urobilinogen Ql (U) 0.2 EU/dL Normal 0.2-1.0 EU/dL [facility] Comment on above: Order Comment: Speci men Type: URINE SPECIMEN Ordering Facility: [facility] Address: [address] [place] [address] Performed By: #### 2 4356-8 #### [facility] CLIA [id number] [address] [place] [address] [place] WBC LM.HPF (Urine sed) [#/Area] 0-5 /HPF Normal 0-5 /HPF [facility] Comment on above: Order Comment: Speci men Type: URINE SPECIMEN Ordering Facility: [facility] Address: [address] [place] [address] Performed By: #### 2 4356-8 #### [facility] CLIA [id number] [address] [place] [address] [place] CNOVon 01-04-2024 CNOV Office Visit (PAR[facility]BY) ----- FARFAN,CLAUDIA ([id number]) 1995 F Date Time Provider Department 01/04/24 11:20 AM [facility] [place] During your visit today, we recorded the following information about you: Temperature Pulse Blood pressure Weight 98.3 degrees 73/minute 110/70 100.2 kg Height 1.6 m Hector Winchester, PAPA.DISASTER RECOVERY COORDINATOR 01/04/2024 6:05 PM Signed Subjective Claudia Adolph is a 28 year old female here today for anxiety, establish care. I reviewed past medical, surgical, social, and family histories today and updated chart. Allergies, chronic medications, and supplements were also reviewed. Anxiety Pertinent negatives include no seizures or weakness. Pertinent negatives include no nausea. Has always been Type A, carries others burdens, mom of the group Has never been on medications Has had it for years and masks it well Recently trying to lose weight and eat healthier Stress makes her overeat and then gets whole body soreness - feels like there's an inflammatory effect on her body Has never done counseling She talks to her mom all the time and vents to her a lot Maybe once or twice had a panic attack - chest tightness, had to take her bra off, crying, heavy breathing. 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 Had gallbladder attack during , had multiple attacks after she gave She had it removed in February 2023 About 10 days post op had RUQ pain - CT scan was done in ER and normal Has been good ever since PAST MEDICAL HISTORY 2008: Avulsion fracture of left hip (HCC) No date: Environmental allergies No date: Generalized anxiety disorder No date: Insulin resistance No date: PCOS (polycystic ovarian syndrome) PAST SURGICAL HISTORY 2000: CYSTO.PANENDO Comment: Cyst removed under tongue No date: EXTRACTION ERUPTED TOOTH/EXR No date: REMOVAL GALLBLADDER Comment: feb 2023 No date: TONSILLECTOMY AND ADENOIDECTOMY ALLERGIES Patient has no known allergies. MEDICATIONS FLUoxetine (PROZAC) 10 mg capsule Take 1 capsule by mouth once daily. FAMILY HISTORY Problem Relation Age of Onset other (Hysterectomy) Mother 40 GERD Mother Diabetes Father Depression Brother COPD Maternal Grandmother Heart Attack Maternal Grandfather Stroke Maternal Grandfather Hypothyroidism Maternal Grandfather COPD Paternal Grandmother Heart Attack Paternal Grandfather other (Esophageal Cancer) Other Breast Cancer Other Social History Tobacco Use Smoking status: Never Smokeless tobacco: Never Substance Use Topics Alcohol use: Yes Comment: maybe twice a year Drug use: Never Review of Systems Constitutional: Positive for fatigue. Negative for activity change, appetite change, chills, diaphoresis and unexpected weight change. Very easy to gain weight but hard to lose it Occasionally wakes up kind of hot and clammy but no sweats Had lab work done with [facility] 2 weeks ago - blood sugar was normal HENT: Negative for congestion, dental problem, hearing loss, sneezing and sore throat. Eyes: Negative for pain, discharge, redness, itching and visual disturbance. Wears glasses Occasionally gets white speckles in her vision field, almost when she moves too fast Happens more when her neck hurts Has appt on the Respiratory: Negative for cough, shortness of breath and wheezing. Cardiovascular: Positive for palpitations (with too much caffiene). Negative for chest pain and leg swelling. Gastrointestinal: Positive for diarrhea. Negative for abdominal pain, blood in stool, constipation and nausea. 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 Normal [facility] Absolute lymphocyte countOrd ered By: ED PROVIDER on 03-12-2023 Lymphocytes Auto (Unsp spec) [#/Vol] 2.17 10*3/uL 0.83-4.51 [facility] Basophil percentageOrdered B y: Jaylan Mendezrus on 03-12-2023 Basophil percentage 0 SEEN /hpf 0-5 [facility] Bilirubin [Mass/Vol] 0.60 mg/dL 0.20-1.00 [facility] Comment on above: For patients on eltr ombopag therapy, use of Dimension Empire TBIL is not recommended. Chloride [Moles/Vol] 106 mmol/L 98-107 [facility] Glucose [Mass/Vol] 120 mg/dL 74-106 [facility] Comment on above: Fasting Glucose resu lt from 100 to 125 mg/dL suggests IMPAIRED HOMEOSTASIS per A.D.A. criteria. Potassium [Moles/Vol] 3.5 mmol/L 3.5-5.1 [facility] Protein [Mass/Vol] 7.6 g/dL 6.4-8.2 [facility] Sodium [Moles/Vol] 139 mmol/L 136-145 [facility] Basophil percentageOrdered B y: ED PROVIDER on 03-12-2023 Basophils/100 WBC (Bld) 0.4 % 0-1 [facility] Eosinophils/100 WBC (Bld) 1.0 % 0-5 [facility] Neutrophils (Bld) [#/Vol] 13.4 10*3/uL 2.0-7.7 [facility] Neutrophils/100 WBC (Bld) 79.3 % 47-70 [facility] WBC (Bld) [#/Vol] 16.9 10*3/uL 4.4-11.0 [facility] Beta hCG serum qualOrdered B y: Jaylan Pedroza on 03-12-2023 Beta HCG ( test) Ql Negative [facility] Bilirubin Test strip Ql (U)O rdered By: Jaylan Pedroza on 03-12-2023 Bilirubin Ql (U) Negative Negative [facility] Blood erythrocytes count (nu mber/volume)Ordered By: ED PROVIDER on 03-12-2023 RBC (Bld) [#/Vol] 4.92 10*6/uL 4.2-5.4 [facility] Blood hemoglobin measurement (mass/volume)Ordered By: ED PROVIDER on 03-12-2023 Hemoglobin (Bld) [Mass/Vol] 14.0 g/dL 12.0-15.0 [facility] Blood lymphocytes/100 leukoc ytesOrdered By: ED PROVIDER on 03-12-2023 Lymphocytes/100 WBC (Bld) 12.8 % 19-41 [facility] Blood monocytes/100 leukocyt esOrdered By: ED PROVIDER on 03-12-2023 Monocytes/100 WBC (Bld) 6.1 % 0-10 [facility] Blood platelet mean volumeOr dered By: ED PROVIDER on 03-12-2023 Platelet mean volume (Bld) [Entitic vol] 10.5 fL 6.2-12.0 [facility] Determination of erythrocyte mean corpuscular volume (MCV)Ordered By: ED PROVIDER on 03-12-2023 MCV (RBC) [Entitic vol] 86.0 fL 81-99 [facility] Hematocrit Auto (Bld) [Volum e fraction]Ordered By: ED PROVIDER on 03-12-2023 Hematocrit (Bld) [Volume fraction] 42.3 % 37-47 [facility] Ketones Test strip Ql (U)Ord ered By: Jaylan Pedroza on 03-12-2023 Ketones Ql (U) Negative Negative [facility] Laboratory - Chemistry and C hemistry - challengeOrdered By: Jaylan Pedroza on 03-12-2023 ALP [Catalytic activity/Vol] 91 U/L 45-117 [facility] ALT [Catalytic activity/Vol] 36 U/L 13-56 [facility] CO2 [Moles/Vol] 24.0 mmol/L 21.0-32.0 [facility] Globulin (S) [Mass/Vol] 4.0 g/dL 2.2-4.2 [facility] Lipase [Catalytic activity/Vol] 50 U/L - [facility] Comment on above: Please note:LIPASE r evised reference range effective 22. New Lipase methodology. Expected to produce lower values than the previous assay method. NEW Reference Range: 13 - 75 U/L Urea nitrogen/Creatinine [Mass ratio] 20.0 mg/mg 10-20 [facility] - Hematology and Cell countsOrdered By: ED PROVIDER on 03-12-2023 Erythrocyte distribution width (RBC) [Entitic vol] 39.1 fL 35.1-43.9 [facility] Erythrocyte distribution width (RBC) [Ratio] 12.6 % 11.6-14.6 [facility] Immature granulocytes/100 WBC (Bld) 0.400 % 0.0-0.9 [facility] Comment on above: IG% - Immature Granu locytes (promyelocytes, myelocytes and metamyelocytes) > 1% indicates that a LEFT SHIFT is Present. MCH (RBC) [Entitic mass] 28.5 pg 27.0-32.0 [facility] Nucleated RBC/100 WBC (Bld) [Ratio] 0 % 0-5 [facility] MCHC Auto (RBC) [Mass/Vol]Or dered By: ED PROVIDER on 03-12-2023 MCHC (RBC) [Mass/Vol] 33.1 g/dL 32-36 [facility] Mucus LM Ql (Urine sed)Order ed By: Jaylan Pedroza on 03-12-2023 Mucus Ql (Urine sed) 0 SEEN /hpf [facility] Nitrite Test strip Ql (U)Ord ered By: Jaylan Pedroza on 03-12-2023 Nitrite Ql (U) Negative Negative [facility] No Panel InformationOrdered By: Jaylan Pedroza on 03-12-2023 Estimated Creatinine Clearance Calc 69.90 ml/min [facility] Estimated GFR (MDRD) Amer 86 mL/min >60 [facility] Comment on above: GFR Calc Estimated GFR (MDRD) Non-Af Amer 71 mL/min >60 [facility] Comment on above: Non- GFR Calc Platelets bldOrdered By: ED PROVIDER on 03-12-2023 Platelets (Bld) [#/Vol] 330 10*3/uL 150-450 [facility] Protein Test strip Ql (U)Ord ered By: Jaylan Pedroza on 03-12-2023 Protein Ql (U) Negative Negative [facility] Serum or plasma albumin jay urement (mass/volume)Ordered By: Jaylan Pedroza on 03-12-2023 Albumin [Mass/Vol] 3.6 g/dL 3.2-5.0 [facility] Serum or plasma albumin/glob ulin mass ratioOrdered By: Jaylan Pedroza on 03-12-2023 Albumin/Globulin [Mass ratio] 0.9 {ratio} 0.9-2.4 [facility] Serum or plasma calcium jay urement (mass/volume)Ordered By: Jaylan Pedroza on 03-12-2023 Calcium [Mass/Vol] 8.9 mg/dL 8.5-10.1 [facility] Serum or plasma creatinine m easurement (mass/volume)Ordered By: Jaylan Pedroza on 03-12-2023 Creatinine [Mass/Vol] 1.00 mg/dL 0.55-1.02 [facility] Comment on above: The validity of the calculated GFR & GFRAA in patients over 70 years has not been determined. Clinical correlation is essential. Serum or plasma urea nitroge n measurement (mass/volume)Ordered By: Jaylan Pedroza on 03-12-2023 Urea nitrogen [Mass/Vol] 20 mg/dL 7-18 [facility] Squamous epithelial cells de tection in urine sediment by light microscopyOrdered By: Jaylan Pedroza on 03-12-2023 Epithelial cells.squamous LM Ql (Urine sed) 0-5 SEEN /hpf 5-10 [facility] Thin prep Papanicolaou smear with manual screeningOrdered By: Jaylan Pedroza on 03-12-2023 Thin prep Papanicolaou smear with manual screening 43 U/L 15-37 [facility] Thin prep Papanicolaou smear with manual screening 9 5-15 [facility] Urine blood detectionOrdered By: Jaylan ePdroza on 03-12-2023 RBC Ql (U) Negative Negative [facility] RBC Ql (U) 0 SEEN /hpf 0-5 [facility] Urine clarityOrdered By: Cheryle Pedroza on 03-12-2023 Clarity (U) Clear Clear [facility] Urine color determinationOrd ered By: Jaylan Pedroza on 03-12-2023 Color (U) Yellow Yellow [facility] Urine glucose detectionOrder ed By: Jaylan Pedroza on 03-12-2023 Glucose Ql (U) Normal mg/dl Normal [facility] Urine leukocyte esterase det ection by dipstickOrdered By: Jaylan Pedroza on 03-12-2023 Leukocyte esterase Test strip Ql (U) Negative Negative [facility] Urine pHOrdered By: Jaylan vang on 03-12-2023 pH (U) 7.0 [pH] 5.0 - 8.0 [facility] Urine sediment bacteria coun t by microscopy (number/high power field)Ordered By: Jaylan Pedroza on 03-12-2023 Bacteria LM.HPF (Urine sed) [#/Area] 0 /[HPF] None Seen [facility] Urine specific gravity measu rementOrdered By: Jaylan Pedroza on 03-12-2023 Specific gravity (U) [Rel density] 1.005 1.002-1.030 [facility] Urobilinogen Auto test strip Ql (U)Ordered By: Jaylan Pedroza on 03-12-2023 Urobilinogen Ql (U) Normal mg/dl Normal [facility] - Chemistry and C hemistry - challengeOrdered By: Vincent Blake on 03-02-2023 HCG ( test) Ql (U) Negative [facility] Comment on above: Very dilute urine sp ecimens, as indicated by a low specificgravity, may not contain customer solutions representative levels of hCG. If is still suspected, a first morning urinespecimen should be collected 48 hours later and tested. BASIC METABOLIC PANELon Anion gap [Moles/Vol] 13 mmol/L Normal 10 - 20 [facility] Comment on above: Order Comment: RESUL TS RB TO [facility], 10/18/2022 00:36 Performed By: #### U ARFX #### [address] [address] Potassium [Moles/Vol] 2.9 mmol/L Critically low 3.5 - 5.3 [facility] Comment on above: Order Comment: RESUL TS RB TO [facility], 10/18/2022 00:36 Result Comment: Conf irmed by repeat analysis RESULTS RB TO [facility], 10/18/2022 00:36 Performed By: #### U ARFX #### [address] [address] Calcium [Mass/Vol] 9.6 mg/dL Normal 8.6 - 10.3 [facility] Comment on above: Order Comment: RESUL TS RB TO [facility], 10/18/2022 00:36 Performed By: #### U ARFX #### [address] [address] Chloride [Moles/Vol] 103 mmol/L Normal 98 - 107 [facility] Comment on above: Order Comment: RESUL TS RB TO [facility], 10/18/2022 00:36 Performed By: #### U ARFX #### [address] [address] Creatinine [Mass/Vol] 1.02 mg/dL Normal 0.50 - 1.05 [facility] Comment on above: Order Comment: RESUL TS RB TO [facility], 10/18/2022 00:36 Performed By: #### U ARFX #### [place] [address] GFR/1.73 sq M.predicted among non-blacks MDRD (S/P/Bld) [Vol rate/Area] 77 mL/min/{1.73_m2} Normal >90 [facility] Comment on above: Order Comment: RESUL TS [facility], 10/18/2022 00:36 Result Comment: CALC ULATIONS OF ESTIMATED GFR ARE PERFORMED USING THE 2020 CKD-EPI STUDY REFIT EQUATION WITHOUT THE RACE VARIABLE FOR THE IDMS-TRACEABLE CREATININE METHODS. https://jasn.asnjournals.org/content/early/ASN.18712 72797 Performed By: #### U ARFX #### [address] [address] Glucose [Mass/Vol] 98 mg/dL Normal 74 - 99 [facility] Comment on above: Order Comment: RESUL TS RB TO [facility], 10/18/2022 00:36 Performed By: #### U ARFX #### [place] [address] HCO3 (Bld) [Moles/Vol] 26 mmol/L Normal 21 - 32 [facility] Comment on above: Order Comment: RESUL TS RB TO [facility], 10/18/2022 00:36 Performed By: #### U ARFX #### [address] [address] Sodium [Moles/Vol] 139 mmol/L Normal 136 - 145 [facility] Comment on above: Order Comment: RESUL TS RB TO [facility], 10/18/2022 00:36 Performed By: #### U ARFX #### [place] [address] Urea nitrogen [Mass/Vol] 21 mg/dL Normal 6 - 23 [facility] Comment on above: Order Comment: KATHY ABEL RB TO [facility], 10/18/2022 00:36 Performed By: #### U ARFX #### [place] [address] CBC AND DIFFERENTIALon 10-18 % AUTOMATED IMMATURE GRAN 0.4 % Normal 0.0 - 0.9 [facility] Comment on above: Result Comment: Dione ture Granulocyte Count (IG) includes promyelocytes, myelocytes and metamyelocytes but does not include bands. Percent differential counts (%) should be interpreted in the context of the absolute cell counts (cells/L). Performed By: #### C BCDF #### [place] [address] DIFFERENTIAL SEE MANUAL DIFF Normal [facility] Comment on above: Performed By: #### C BCDF #### [place] [address] Erythrocyte distribution width (RBC) [Ratio] 12.7 % Normal 11.5 - 14.5 [facility] Comment on above: Performed By: #### C BCDF #### [place] [address] Hematocrit (Bld) [Volume fraction] 44.4 % Normal 36.0 - 46.0 [facility] Comment on above: Performed By: #### C BCDF #### [place] [address] Hemoglobin (Bld) [Mass/Vol] 14.7 g/dL Normal 12.0 - 16.0 [facility] Comment on above: Performed By: #### C BCDF #### [place] [address] MCHC (RBC) [Mass/Vol] 33.1 g/dL Normal 32.0 - 36.0 [facility] Comment on above: Performed By: #### C BCDF #### [place] [address] MCV (RBC) [Entitic vol] 86 fL Normal 80 - 100 [facility] Comment on above: Performed By: #### C BCDF #### [address] [address] Platelets (Bld) [#/Vol] 310 10*3/uL Normal 150 - 450 [facility] Comment on above: Performed By: #### C BCDF #### [address] [address] RBC 5.17 x10E12/L Normal 4.00 - 5.20 [facility] Comment on above: Performed By: #### C BCDF #### [address] [address] WBC (Bld) [#/Vol] 11.3 10*3/uL Normal 4.4 - 11.3 [facility] Comment on above: Performed By: #### C BCDF #### [address] [address] [address] ABDOMEN AND PELVIS W IV C [facility] 10-18-2022 CT ABDOMEN AND PELVIS W IV CONTRAST Patient Name: CLAUDIA FARFAN STUDY: CT ABDOMEN AND PELVIS W IV CONTRAST; 10/18/2022 1:00 am INDICATION: Acute abdominal pain . COMPARISON: CT abdomen pelvis 07/17/2017 ACCESSION NUMBER(S): [id number] ORDERING CLINICIAN: ANA SHABAZZ TECHNIQUE: Axial CT images of the abdomen and pelvis with coronal and sagittal reconstructed images obtained after intravenous administration of 90 mL Omnipaque 350 FINDINGS: LOWER CHEST: No acute abnormality of the lung bases. ABDOMEN: LIVER: Normal attenuation and contour. BILE DUCTS: Normal caliber. GALLBLADDER: There is gallbladder wall thickening and pericholecystic fluid. No definite calcified gallstones are appreciated. PORTAL VEIN: Patent SPLEEN: Unremarkable. PANCREAS: Unremarkable. ADRENALS: Unremarkable. KIDNEYS, URETERS and URINARY BLADDER: Symmetric renal enhancement. No hydronephrosis or perinephric fluid collection. Bladder is within normal limits REPRODUCTIVE ORGANS: No pelvic masses. ABDOMINAL WALL: Within normal limits. PERITONEUM: No ascites, free air or fluid collection. BOWEL: The stomach is distended with fluid and gastric contents. No gastric wall thickening. No small or large bowel dilatation. Moderate colonic stool burden. Nondilated appendix. VESSELS: No aortic aneurysm. RETROPERITONEUM: No pathologically enlarged retroperitoneal lymph nodes. BONES: No acute osseous abnormality. IMPRESSION: Gallbladder wall thickening with pericholecystic fluid. Findings can be seen with acute cholecystitis. Correlate with laboratory values and consider further evaluation with right upper quadrant ultrasound given the lack of definite calcified gallstones on CT. Moderate colonic stool burden. Correlate for symptoms of constipation. Electronically signed by: NILSA MANN MD Normal [facility] HEPATIC FUNCTION PANELon Albumin [Mass/Vol] 4.4 g/dL Normal 3.4 - 5.0 [facility] Comment on above: Performed By: #### H EPFP #### [address] [address] ALP [Catalytic activity/Vol] 85 U/L Normal 33 - 110 [facility] Comment on above: Performed By: #### H EPFP #### [address] [address] ALT [Catalytic activity/Vol] 20 U/L Normal 7 - 45 [facility] Comment on above: Result Comment: Caryl ents treated with Sulfasalazine may generate falsely decreased results for ALT. Performed By: #### H EPFP #### [address] [address] AST [Catalytic activity/Vol] 26 U/L Normal 9 - 39 [facility] Comment on above: Performed By: #### H EPFP #### [address] [address] Bilirubin [Mass/Vol] 0.4 mg/dL Normal 0.0 - 1.2 [facility] Comment on above: Performed By: #### H EPFP #### [address] [address] Bilirubin.indirect [Mass/Vol] 0.1 mg/dL Normal 0.0 - 0.3 [facility] Comment on above: Performed By: #### H EPFP #### [address] [address] Protein [Mass/Vol] 7.6 g/dL Normal 6.4 - 8.2 [facility] Comment on above: Performed By: #### H EPFP #### [address] [address] LACTATEon 10-18-2022 Lactate [Moles/Vol] 1.5 mmol/L Normal 0.4 - 2.0 [facility] Comment on above: Result Comment: Julia puncture immediately after or during the administration of Metamizole may lead to falsely low results. Testing should be performed immediately prior to Metamizole dosing. Performed By: #### L ACT #### [address] [address] Lactate [Moles/Vol] 2.8 mmol/L High 0.4 - 2.0 [facility] Comment on above: Result Comment: Julia puncture immediately after or during the administration of Metamizole may lead to falsely low results. Testing should be performed immediately prior to Metamizole dosing. Performed By: #### L ACT #### [address] [address] LIPASEon 10-18-2022 Lipase [Catalytic activity/Vol] 37 U/L Normal 9 - 82 [facility] Comment on above: Result Comment: Julia puncture immediately after or during the administration of Metamizole may lead to falsely low results. Testing should be performed immediately prior to Metamizole dosing. W-kqduhx-e-benzoquinone imine (metabolite of Acetaminophen) will generate erroneously low results in samples for patients that have taken toxic doses of acetaminophen. Performed By: #### L IPAS #### [address] [address] MANUAL DIFFERENTIALon 2022 % BAND NEUTROPHIL 2.0 % Normal 0.0 - 5.0 [facility] Comment on above: Performed By: #### M DIFF #### [address] [address] % BASOPHIL 0.0 % Normal 0.0 - 2.0 [facility] Comment on above: Performed By: #### M DIFF #### [address] [address] % EOSINOPHIL 1.0 % Normal 0.0 - 6.0 [facility] Comment on above: Performed By: #### M DIFF #### [address] [address] % LYMPH-ATYPICAL 14.0 % Normal 0.0 - 2.0 [facility] Comment on above: Performed By: #### M DIFF #### [address] [address] % LYMPHOCYTE 31.0 % Normal 13.0 - 44.0 [facility] Comment on above: Performed By: #### M DIFF #### [address] [address] % MONOCYTE 5.0 % Normal 2.0 - 10.0 [facility] Comment on above: Performed By: #### M DIFF #### [address] [address] % SEG NEUTROPHIL 47.0 % Normal 40.0 - 80.0 [facility] Comment on above: Result Comment: Perc ent differential counts (%) should be interpreted in the context of the absolute cell counts (cells/L). Performed By: #### M DIFF #### [address] [address] ANC 5.54 x10E9/L Normal 1.20 - 7.70 [facility] Comment on above: Performed By: #### M DIFF #### [address] [address] BAND NEUTROPHIL 0.23 x10E9/L Normal 0.00 - 0.70 [facility] Comment on above: Performed By: #### M DIFF #### [address] [address] BASOPHIL 0.00 x10E9/L Normal 0.00 - 0.10 [facility] Comment on above: Performed By: #### M DIFF #### [address] [address] EOSINOPHIL 0.11 x10E9/L Normal 0.00 - 0.70 [facility] Comment on above: Performed By: #### M DIFF #### [address] [address] LYMPH-ATYPICAL 1.58 x10E9/L High 0.00 - 0.50 [facility] Comment on above: Performed By: #### M DIFF #### [address] [address] LYMPHOCYTE 3.50 x10E9/L Normal 1.20 - 4.80 [facility] Comment on above: Performed By: #### M DIFF #### [address] [address] MONOCYTE 0.57 x10E9/L Normal 0.10 - 1.00 [facility] Comment on above: Performed By: #### M DIFF #### [address] [address] SEG NEUTROPHIL 5.31 x10E9/L Normal 1.20 - 7.00 [facility] Comment on above: Performed By: #### M DIFF #### [address] [address] Provider Note - ED v3on 06-0 Provider Note - ED v3 Provider Note: Chart Review: ED NOTES ED NOTES: HPI: Is a 26-year-old female history of renal colic x2 presents with which she thinks is the same thing that occurred last month. She has seen as urgent but has not schedule appointment for a cholecystectomy. ROS: All systems are negative other than as noted in HPI. Physical Exam Constitutional: Well developed, alert distress secondary to pain EYES: Sclera non-icteric. Conjunctiva not injected. No discharge. HENT: Moist mucous membranes. Posterior oropharynx non-erythematous, no tonsillar exudates. TMs clear bilaterally, canals normal. No cervical LAD. Neck supple without meningismus. CV: Regular rate and rhythm, Resp: No respiratory distress. Lungs clear bilaterally. GI: Normoactive bowel sounds. Upper quadrant tenderness :. MSK: No gross deformities appreciated. Moves all extremities Neuro: Alert, age appropriate. Normal muscle tone. Moving all extremities. Skin: No rashes. HISTORY OF PRESENTING ILLNESS CLAUDIA is a 26 year old Female and was seen by me at 17-Oct-2022 23:32 for a chief complaint of abdominal pain (Patient complains of bilateral upper abdominal pain that started 20 min prior to arrival, states she feels like this is a gallbladder attack and that she had the same thing a month ago)(1). Triage Information: Most recent Vital Sign Value Date Temp (F): 98.5 10-17-2022 23:30 Temp (C): 36.9 10-17-2022 23:30 Heart Rate (beats/min): 85 10-17-2022 23:30 Respirations (breaths/min): 17 10-17-2022 23:30 SpO2 (%): 99 10-17-2022 23:30 BP Systolic (mm Hg): 110 10-17-2022 23:30 BP Diastolic (mm Hg): 89 10-17-2022 23:30 PAST MEDICAL HISTORY ALLERGIES/INTOLERANCES: No Known Allergies HEALTH HISTORY: No documented data. OUTPATIENT MEDICATIONS: Home Medications Review Status for Reconciliation: Incomplete Med Status: Incomplete Medication History Drug Name: VITAMIN D Instructions: once a day Drug Name: VITAMIN Instructions: null Drug Name: amoxicillin 875 mg oral tablet Instructions: 1 tab(s) orally 2 times a day x 7 days SIGNIFICANT EVENTS: Past Medical History Description:SEASONAL ALLERGIES Description:PCOS Past Surgical History Description:TONSILLECTOMY / CYST FROM TONGUE/ WISDOM TEETH CRITICAL CARE RESULTS: Recent Lab Results: I have reviewed these laboratory results: Urinalysis with Culture if Indicated 18-Oct-2022 03:41:00 ResultValue Color, Urine Yellow Reference Range: STRAW,YELLOW Appearance, Urine HAZY Specific Mccoll, Urine 1.047 H pH, Urine 6.0 Protein, Urine 30(1+) A Glucose, Urine NEGATIVE Blood, Urine LARGE(3+) A Ketones, Urine NEGATIVE Bilirubin, Urine NEGATIVE Urobilinogen, Urine <2.0 Nitrite, Urine Negative Leukocyte Esterase, Urine TRACE A Urinalysis, Microscopic 18-Oct-2022 03:41:00 ResultValue White Cells 2 Red Blood Cells >182 A Epithelial Cells, Squamous 4 Lactate, Level Trending View [id number] 03:39:00 17-Oct-2022 23:54:00 Lactate, Level1.5 2.8 H Basic Metabolic Panel 17-Oct-2022 23:54:00 ResultValue Lab Comment: RESULTS RB TO HANK DUBON, 10/18/2022 00:36 Glucose, Serum 98 NA 139 K 2.9 LL CL 103 Bicarbonate, Serum 26 Anion Gap, Serum 13 BUN 21 CREAT 1.02 GFR Female 77 Calcium, Serum 9.6 Hepatic Function Panel 17-Oct-2022 23:54:00 ResultValue Aspartate Transaminase, Serum 26 ALB 4.4 T Bili 0.4 Bilirubin, Serum Direct - Conjugated 0.1 ALKP 85 Alanine Aminotransferase, Serum 20 T Pro 7.6 Complete Blood Count + Differential 17-Oct-2022 23:54:00 ResultValue White Blood Cell Count 11.3 Red Blood Cell Count 5.17 HGB 14.7 HCT 44.4 MCV 86 MCHC 33.1 PLT 310 RDW-CV 12.7 Immature Granulocytes % 0.4 Differential Comment SEE MANUAL DIFF RBC Morphology 17-Oct-2022 23:54:00 ResultValue Red Blood Cell Morphology SEE COMMENT NO SIGNIFICANT RBC ABNORMALITIES SEEN ONSMEAR REVIEW. Manual Differential Panel 17-Oct-2022 23:54:00 ResultValue % Seg Neutrophil 47.0 % Band Neutrophil 2.0 % Lymphocyte 31.0 % Monocyte 5.0 % Eosinophil 1.0 % Basophil 0.0 % Lymph-Atypical 14.0 Absolute Neutrophil Count (ANC) 5.54 Seg Neutrophil Count 5.31 Band Neutrophil Count 0.23 Lymphocyte, Count 3.50 Monocyte, Count 0.57 Eosinophil, Count 0.11 Basophil, Count 0.00 Lymph Atypical, Count 1.58 H Lipase, Serum 17-Oct-2022 23:54:00 ResultValue Lipase, Serum 37 Radiology Results: Impression: Cholelithiasis with layering biliary sludge and mild wall thickening likely relate to contracted state. No pericholecystic fluid. The sonographic Dixon sign is reported negative by the special effects technician. Ultrasound Gallbladder [Oct 18 2022 2:49AM] Impression: Gallbladder wall thickening with pericholecystic fluid. Findings can be seen with acute cholecystitis. Correlate with laboratory (more content not included)... Normal [facility] RED CELL MORPHOLOGYon 2022 RBC morphology finding Nom (Bld) SEE COMMENT Normal [facility] Comment on above: Result Comment: NO S IGNIFICANT RBC ABNORMALITIES SEEN ON SMEAR REVIEW. Performed By: #### U ARFX #### [address] [place] [address] Risk Screen - Adult Emergenc yon 10-18-2022 Risk Screen - Adult Emergency Preferred Language: Preferred Language: Preferred Language for Discussing Health Care (patient/designee)Tanzanian Patient Preferred Pharmacy: Patient Preferred Pharmacy Statement: I have reviewed and updated the patient's preferred pharmacy selection for today's visit. Advanced Directives: Advance Directive/DNRno Advance Directive Information Givenpatient/family declined Family Violence Adult: Abuse Screen: Are you or have you been threatened or abused physically, emotionally, or sexually by anyoneno Learning Assessment (Patient): Learning Assessment (Patient): Patient is Able to be Assessed for Learningyes Factors Influencing Readiness to Learninterest in learning Factors that Impact Ability to Learnnone Devices/Methods Used to Communicatenone Learning Preferencesverbal instruction Cultural Considerationsnone Developmental Considerationsnone Pentecostal Considerationsnone Learning Assessment (Other Learner): Learning Assessment (Other Learner): Other learner availableno Pressure Injury/TB/Substance: Pressure Injury: Pressure Injury Present on Admissionno Do you have a coughno Smoking Statusnever smoker Alcohol Usedenies Drug Usedenies Admission Risk Screen: Significant IndicatorsComplete CAGE: CAGE: Is this an injured patient at a Trauma Center ([facility] [place]/[place]/ [place]): no Electronic Signatures: Renata Alan (MANUEL) (Signed 17-Oct-2022 23:35) Authored: Preferred Language, Patient Preferred Pharmacy, Advanced Directives, Family Violence Adult, Learning Assessment (Patient), Learning Assessment (Other Learner), Pressure Injury/TB/Substance, Pressure Injury, CAGE Last Updated: 17-Oct-2022 23:35 by Renata Alan (MANUEL) [facility] Triage - EDon 10-18-2022 Triage - ED Quick Triage: Are You no Have You Given In The Last 6 Weeksno Are You Currently Breastfeedingno Chart Review: PRIMARY ASSESSMENT CLAUDIA FARFAN's primary assessment is Within Defined Limits. The airway is open and patent. Breathing spontaneous and unlabored with clear breath sounds bilaterally. Circulation is normal with good peripheral pulses. Skin is warm and dry and color is normal for race. ARRIVAL INFORMATION Means of Arrival: Ambulatory Mode of Arrival: private vehicle Arrival From: home Accompanied By: parent Language: Spoken Language Preferred: Tanzanian CHIEF COMPLAINT CLAUDIA FARFAN is a Female patient with a chief complaint of abdominal pain (Patient complains of bilateral upper abdominal pain that started 20 min prior to arrival, states she feels like this is a gallbladder attack and that she had the same thing a month ago). Triage Date/Time: 17-Oct-2022 23:25 ELEANOR: 3V Pain Rating (0-10): 8 = Severe Vital Signs: Temperature: 98.5F ( 36.9C) taken temporal Blood Pressure: 110/89 Mean: Heart Rate: 85 Respiratory Rate: 17 Pulse Oximetry: 99% on room air, no respiratory support. Height: 5 feet 3.00 inches. 160.0 CM Weight: 216.0 pounds. Calculated 98.0 kg. (stated) Calculated BMI (kg/m2): 38.281 Calculated BSA (m2) 2.09 Barron Coma Scale: Best Eye Response: (E4) spontaneous Best Motor Response: (M6) obeys commands Best Verbal Response: (V5) oriented [place] Score: 15 Allergies: no Last menstrual period: 17-Oct-2022 Patient has homicidal thoughts: no Risk Screens Suicide Risk Screen In the Past Month: Have you wished you were or wished you could go to sleep and not wake up no In the Past Month: Have you had any actual thoughts of killing yourself no In Your Lifetime: Have you ever done anything, started to do anything, or prepared to do anything to end your life no Interventions: Fermin Fall Interventions: LOW INTERVENTIONS: *patient oriented to surroundings and call system, * patient/family falls education completed and documented, *patients fall status communicated during bedside handoff, *whiteboard updated, *mode of toileting discussed with patient, *bed in low position with brakes locked, *call light in reach, * non-skid footwear TRAVEL HISTORY Travel History Coronavirus Screening: no exposure or symptoms Travel Exposure History: NO travel to International locations in the past 30 days PAIN Pain Scale Used: YOLY Pain Rating (0-10): 8 = Severe Past Medical History: Past Medical History Reviewedyes Electronic Signatures: Renata Alan (MANUEL) (Signed 17-Oct-2022 23:34) Entered: Risk Screens, Pain, Arrival, ABCD, Travel History, Chart Review, Scores, Past Medical History Authored: Quick Triage, Risk Screens, Pain, Arrival, ABCD, Travel History, Chart Review, Scores, Past Medical History Last Updated: 17-Oct-2022 23:34 by Renata Alan (RN) Normal [facility] UA MICROSCOPICon 10-18-2022 RBC (U) [#/Vol] /uL Abnormal 0-5 [facility] Comment on above: Performed By: #### U AMIC #### [place] [address] SQUAMOUS EPITH. CELLS 4 /HPF Normal [facility] Comment on above: Performed By: #### U AMIC #### [place] [address] WBC 2 /HPF Normal 0-5 [facility] Comment on above: Performed By: #### U AMIC #### [place] [address] URINALYSIS WITH CULTURE IF I NDICATEDon 10-18-2022 Appearance (U) HAZY Normal CLEAR [facility] Comment on above: Performed By: #### U ARFX #### [place] [address] Bilirubin Ql (U) Negative Normal NEGATIVE [facility] Comment on above: Performed By: #### U ARFX #### [place] [address] Color (U) Yellow Normal STRAW,YELLOW [facility] Comment on above: Performed By: #### U ARFX #### [place] [address] Glucose Ql (U) Negative Normal NEGATIVE [facility] Comment on above: Performed By: #### U ARFX #### [place] [address] Hemoglobin Ql (U) LARGE(3+) Abnormal NEGATIVE [facility] Comment on above: Performed By: #### U ARFX #### [place] [address] Ketones Ql (U) Negative Normal NEGATIVE [facility] Comment on above: Performed By: #### U ARFX #### [place] [address] Leukocyte esterase Test strip Ql (U) TRACE Abnormal NEGATIVE [facility] Comment on above: Performed By: #### U ARFX #### [address] [address] Nitrite Ql (U) Negative Normal NEGATIVE [facility] Comment on above: Performed By: #### U ARFX #### [address] [address] pH (U) 6.0 [pH] Normal 5.0 - 8.0 [facility] Comment on above: Performed By: #### U ARFX #### [address] [address] Protein Ql (U) 30(1+) Abnormal NEGATIVE [facility] Comment on above: Performed By: #### U ARFX #### [address] [address] Specific gravity (U) [Rel density] 1.047 High 1.005 - 1.035 [facility] Comment on above: Performed By: #### U ARFX #### [address] [address] Urobilinogen (U) [Mass/Vol] mg/dL Normal 0.0 - 1.9 [facility] Comment on above: Performed By: #### U ARFX #### [address] [address] URINE CULTURE,BACTERIALon URINE CULTURE,BACTERIAL PATIENT: CLAUDIA FARFAN LOCATION: [facility]#: [id number] : 89 AGE: SEX: F ORDERED BY: ANA SHABAZZ SOURCE: URINE COLLECTED: 10/18/22 03:41 ANTIBIOTICS AT [facility].: RECEIVED : 10/18/22 14:10 SITE: R E S U L T S URINE CULTURE,BACTERIAL FINAL 10/21/22 09:22 ISOLATE1 : Escherichia coli 20,000-80,000 CFU/ML ISOLATE2 : Enterococcus faecalis 20,000-80,000 CFU/ML Organism E coli Ec faecalis Antibiotic BP INTRP BP INTRP Ampicillin S S Ceftriaxone S Cefazolin S Ciprofloxacin S R Nitrofurantoin S S Gentamicin S Levofloxacin S S Piperc/Tazobact S Trimeth/Sulfa S Penicillin S Tetracycline S Vancomycin S ___ S=SUSCEPTIBLE I=INTERMEDIATE R=RESISTANT SDD=SUSCEPTIBLE DOSE DEPENDENT NS=NONSUSCEPTIBLE X=REPORTED IN ERROR ___ Normal [facility] Comment on above: Performed By: #### U RINC #### [facility] [address] [place] [address] US GALLBLADDERon 10-18-2022 US GALLBLADDER Patient Name: CLAUDIA FARFAN STUDY: US GALLBLADDER; 10/18/2022 2:41 am INDICATION: Right upper quadrant pain . COMPARISON: CT scan of the abdomen pelvis 10/18/2022 ACCESSION NUMBER(S): [id number] ORDERING CLINICIAN: ANA SHABAZZ TECHNIQUE: Grayscale and color Doppler sonographic imaging of the right upper quadrant. FINDINGS: LIVER: Normal echogenicity, and echotexture. No focal abnormalities. BILE DUCTS: No intrahepatic or extrahepatic bile duct dilatation. Extrahepatic bile duct = 4 mm. GALLBLADDER: Cholelithiasis. No pericholecystic fluid, wall thickening, or localized tenderness. PANCREAS: Normal head and body. Limited evaluation of the pancreatic tail due to bowel gas. RIGHT KIDNEY: Measures 9.3 cm in length, no hydronephrosis. PERITONEUM: No upper abdominal ascites. IMPRESSION: Cholelithiasis with layering biliary sludge and mild wall thickening likely relate to contracted state. No pericholecystic fluid. The sonographic Dixon sign is reported negative by the special effects technician. Electronically signed by: ISAAC BELTRE MD [facility] Absolute lymphocyte countOrd ered By: Cristy Abreu on 08-16-2022 Lymphocytes Auto (Unsp spec) [#/Vol] 2.54 10*3/uL 0.83-4.51 [facility] Basophil percentageOrdered B y: Cristy Abreu on 08-16-2022 Basophils/100 WBC (Bld) 0.3 % 0-1 [facility] Eosinophils/100 WBC (Bld) 0.5 % 0-5 [facility] Neutrophils (Bld) [#/Vol] 8.2 10*3/uL 2.0-7.7 [facility] Neutrophils/100 WBC (Bld) 70.3 % 47-70 [facility] WBC (Bld) [#/Vol] 11.7 10*3/uL 4.4-11.0 [facility] Blood erythrocytes count (nu mber/volume)Ordered By: Cristy Abreu on 08-16-2022 RBC (Bld) [#/Vol] 4.50 10*6/uL 4.2-5.4 [facility] Blood hemoglobin measurement (mass/volume)Ordered By: Cristy Abreu on 08-16-2022 Hemoglobin (Bld) [Mass/Vol] 13.2 g/dL 12.0-15.0 [facility] Blood lymphocytes/100 leukoc ytesOrdered By: Cristy Abreu on 08-16-2022 Lymphocytes/100 WBC (Bld) 21.7 % 19-41 [facility] Blood monocytes/100 leukocyt esOrdered By: Cristy Abreu on 08-16-2022 Monocytes/100 WBC (Bld) 6.8 % 0-10 [facility] Blood platelet mean volumeOr dered By: Cristy Abreu on 08-16-2022 Platelet mean volume (Bld) [Entitic vol] 12.4 fL 6.2-12.0 [facility] Determination of erythrocyte mean corpuscular volume (MCV)Ordered By: Cristy Abreu on 08-16-2022 MCV (RBC) [Entitic vol] 87.3 fL 81-99 [facility] Hematocrit Auto (Bld) [Volum e fraction]Ordered By: Cristy Abreu on 08-16-2022 Hematocrit (Bld) [Volume fraction] 39.3 % 37-47 [facility] Laboratory - Hematology and Cell countsOrdered By: Cristy Abreu on 08-16-2022 Erythrocyte distribution width (RBC) [Entitic vol] 43.2 fL 35.1-43.9 [facility] Erythrocyte distribution width (RBC) [Ratio] 13.7 % 11.6-14.6 [facility] Immature granulocytes/100 WBC (Bld) 0.400 % 0.0-0.9 [facility] Comment on above: IG% - Immature Granu locytes (promyelocytes, myelocytes and metamyelocytes) > 1% indicates that a LEFT SHIFT is Present. MCH (RBC) [Entitic mass] 29.3 pg 27.0-32.0 [facility] Nucleated RBC/100 WBC (Bld) [Ratio] 0 % 0-5 [facility] MCHC Auto (RBC) [Mass/Vol]Or dered By: Cristy Abreu on 08-16-2022 MCHC (RBC) [Mass/Vol] 33.6 g/dL 32-36 [facility] Platelets bldOrdered By: Med Abreu on 08-16-2022 Platelets (Bld) [#/Vol] 226 10*3/uL 150-450 [facility] Serum Treponema species anti body detectionOrdered By: Cristy Abreu on 08-16-2022 Treponema sp Ab Ql (S) Non-Reactive [facility] - Chemistry and C hemistry - challengeon 08-10-2022 Glucose Ql (U) Negative [facility] - Urinalysison Protein Ql (U) Negative [facility] - Chemistry and C hemistry - challengeon 08-03-2022 Glucose Ql (U) Negative [facility] - Urinalysison Protein Ql (U) Negative [facility] Culture, urineOrdered By: Yumi Mead on 07-27-2022 Bacteria identified Cx Nom (U) Positive [facility] No Panel InformationOrdered By: Rina Mead on 07-27-2022 Group B Streptococcus Culture Group B Beta Streptococcus is not isolated. [facility] Absolute lymphocyte countOrd ered By: Rina Mead on 07-25-2022 Lymphocytes Auto (Unsp spec) [#/Vol] 2.72 10*3/uL 0.83-4.51 [facility] Basophil percentageOrdered B y: Rina Mead on 07-25-2022 Basophils/100 WBC (Bld) 0.1 % 0-1 [facility] Bilirubin [Mass/Vol] 0.40 mg/dL 0.20-1.00 [facility] Comment on above: For patients on eltr ombopag therapy, use of Dimension [place] TBIL is not recommended. Chloride [Moles/Vol] 111 mmol/L 98-107 [facility] Eosinophils/100 WBC (Bld) 0.1 % 0-5 [facility] Glucose [Mass/Vol] 87 mg/dL 74-106 [facility] Neutrophils (Bld) [#/Vol] 10.3 10*3/uL 2.0-7.7 [facility] Neutrophils/100 WBC (Bld) 73.1 % 47-70 [facility] Potassium [Moles/Vol] 3.6 mmol/L 3.5-5.1 [facility] Protein [Mass/Vol] 6.0 g/dL 6.4-8.2 [facility] Sodium [Moles/Vol] 141 mmol/L 136-145 [facility] WBC (Bld) [#/Vol] 14.1 10*3/uL 4.4-11.0 [facility] Blood erythrocytes count (nu mber/volume)Ordered By: Rina Mead on 07-25-2022 RBC (Bld) [#/Vol] 4.18 10*6/uL 4.2-5.4 [facility] Blood hemoglobin measurement (mass/volume)Ordered By: Rina Mead on 07-25-2022 Hemoglobin (Bld) [Mass/Vol] 12.1 g/dL 12.0-15.0 [facility] Blood lymphocytes/100 leukoc ytesOrdered By: Rina Mead on 07-25-2022 Lymphocytes/100 WBC (Bld) 19.2 % 19-41 [facility] Blood monocytes/100 leukocyt esOrdered By: Rina Mead on 07-25-2022 Monocytes/100 WBC (Bld) 7.0 % 0-10 [facility] Blood platelet mean volumeOr dered By: Rina Mead on 07-25-2022 Platelet mean volume (Bld) [Entitic vol] 11.6 fL 6.2-12.0 [facility] Determination of erythrocyte mean corpuscular volume (MCV)Ordered By: Rina Mead on 07-25-2022 MCV (RBC) [Entitic vol] 87.1 fL 81-99 [facility] Hematocrit Auto (Bld) [Volum e fraction]Ordered By: Rinajeannette Mead on 07-25-2022 Hematocrit (Bld) [Volume fraction] 36.4 % 37-47 [facility] - Chemistry and C hemistry - challengeOrdered By: Rina Mead on 07-25-2022 ALP [Catalytic activity/Vol] 137 U/L 45-117 [facility] ALT [Catalytic activity/Vol] 29 U/L 13-56 [facility] CO2 [Moles/Vol] 20.0 mmol/L 21.0-32.0 [facility] Globulin (S) [Mass/Vol] 3.7 g/dL 2.2-4.2 [facility] Urea nitrogen/Creatinine [Mass ratio] 4.6 mg/mg 10-20 [facility] - Hematology and Cell countsOrdered By: Rina Mead on 07-25-2022 Erythrocyte distribution width (RBC) [Entitic vol] 41.7 fL 35.1-43.9 [facility] Erythrocyte distribution width (RBC) [Ratio] 13.2 % 11.6-14.6 [facility] Immature granulocytes/100 WBC (Bld) 0.500 % 0.0-0.9 [facility] Comment on above: IG% - Immature Granu locytes (promyelocytes, myelocytes and metamyelocytes) > 1% indicates that a LEFT SHIFT is Present. MCH (RBC) [Entitic mass] 28.9 pg 27.0-32.0 [facility] Nucleated RBC/100 WBC (Bld) [Ratio] 0 % 0-5 [facility] MCHC Auto (RBC) [Mass/Vol]Or dered By: Rina Mead on 07-25-2022 MCHC (RBC) [Mass/Vol] 33.2 g/dL 32-36 [facility] No Panel InformationOrdered By: Rina Mead on 07-25-2022 Estimated Creatinine Clearance Calc 106.85 ml/min [facility] Estimated GFR (MDRD) Amer 140 mL/min >60 [facility] Comment on above: GFR Calc Estimated GFR (MDRD) Non-Af Amer 115 mL/min >60 [facility] Comment on above: Non- GFR Calc Platelets bldOrdered By: Shagufta Mead on 07-25-2022 Platelets (Bld) [#/Vol] 235 10*3/uL 150-450 [facility] Serum or plasma albumin jay urement (mass/volume)Ordered By: Rina Mead on 07-25-2022 Albumin [Mass/Vol] 2.3 g/dL 3.2-5.0 [facility] Serum or plasma albumin/glob ulin mass ratioOrdered By: Rina Mead on 07-25-2022 Albumin/Globulin [Mass ratio] 0.6 {ratio} 0.9-2.4 [facility] Serum or plasma calcium jay urement (mass/volume)Ordered By: Rina Mead on 07-25-2022 Calcium [Mass/Vol] 8.8 mg/dL 8.5-10.1 [facility] Serum or plasma creatinine m easurement (mass/volume)Ordered By: Rina Mead on 07-25-2022 Creatinine [Mass/Vol] 0.66 mg/dL 0.55-1.02 [facility] Comment on above: The validity of the calculated GFR & GFRAA in patients over 70 years has not been determined. Clinical correlation is essential. Serum or plasma urea nitroge n measurement (mass/volume)Ordered By: Rina Mead on 07-25-2022 Urea nitrogen [Mass/Vol] 3 mg/dL 7-18 [facility] Thin prep Papanicolaou smear with manual screeningOrdered By: Rina Mead on 07-25-2022 Thin prep Papanicolaou smear with manual screening 51 U/L 15-37 [facility] Thin prep Papanicolaou smear with manual screening 10 5-15 [facility] Basophil percentageOrdered B y: Rina Mead on 07-24-2022 Basophil percentage 5-10 SEEN /hpf 0-5 [facility] Bilirubin Test strip Ql (U)O rdered By: Rina Mead on 07-24-2022 Bilirubin Ql (U) Negative Negative [facility] Ketones Test strip Ql (U)Ord ered By: Rina Mead on 07-24-2022 Ketones Ql (U) Negative Negative [facility] Mucus LM Ql (Urine sed)Order ed By: Rina Mead on 07-24-2022 Mucus Ql (Urine sed) RARE /hpf [facility] Nitrite Test strip Ql (U)Ord ered By: Rina Mead on 07-24-2022 Nitrite Ql (U) Negative Negative [facility] No Panel InformationOrdered By: Rina Mead on 07-24-2022 Specimen Comment (Misc) Not Reportable [facility] Protein Test strip Ql (U)Ord ered By: Rina Mead on 07-24-2022 Protein Ql (U) 15 mg/dl Negative [facility] Serum Treponema species anti body detectionOrdered By: Rina Mead on 07-24-2022 Treponema sp Ab Ql (S) Non-Reactive [facility] Squamous epithelial cells de tection in urine sediment by light microscopyOrdered By: Rina Mead on 07-24-2022 Epithelial cells.squamous LM Ql (Urine sed) 5-10 SEEN /hpf 5-10 [facility] Thin prep Papanicolaou smear with manual screeningOrdered By: Rina Mead on 07-24-2022 Thin prep Papanicolaou smear with manual screening Negative Negative [facility] Urine blood detectionOrdered By: Rina Mead on 07-24-2022 RBC Ql (U) Negative Negative [facility] RBC Ql (U) 0-5 SEEN /hpf 0-5 [facility] Urine clarityOrdered By: Shagufta Mead on 07-24-2022 Clarity (U) Sl. Cloudy Clear [facility] Urine color determinationOrd ered By: Rina Mead on 07-24-2022 Color (U) Yellow Yellow [facility] Urine glucose detectionOrder ed By: Rina Mead on 07-24-2022 Glucose Ql (U) Normal mg/dl Normal [facility] Urine leukocyte esterase det ection by dipstickOrdered By: Rina Mead on 07-24-2022 Leukocyte esterase Test strip Ql (U) 100 /ul Negative [facility] Urine pHOrdered By: Rina Mead on 07-24-2022 pH (U) 8.0 [pH] 5.0 - 8.0 [facility] Urine sediment bacteria coun t by microscopy (number/high power field)Ordered By: Rina Mead on 07-24-2022 Bacteria LM.HPF (Urine sed) [#/Area] 2 /[HPF] None Seen [facility] Urine specific gravity measu rementOrdered By: Rina Mead on 07-24-2022 Specific gravity (U) [Rel density] 1.015 1.002-1.030 [facility] Urobilinogen Auto test strip Ql (U)Ordered By: Rina Mead on 07-24-2022 Urobilinogen Ql (U) Normal mg/dl Normal [facility] Laboratory - Chemistry and C hemistry - challengeon 07-20-2022 Glucose Ql (U) Negative [facility] Laboratory - Urinalysison Protein Ql (U) Negative [facility] Laboratory - Chemistry and C hemistry - challengeon 07-13-2022 Glucose Ql (U) Negative [facility] Laboratory - Urinalysison Protein Ql (U) Negative [facility] Laboratory - Chemistry and C hemistry - challengeon 07-06-2022 Glucose Ql (U) Negative [facility] Laboratory - Urinalysison Protein Ql (U) Negative [facility] Absolute lymphocyte countOrd ered By: Gui Sloan on 06-29-2022 Lymphocytes Auto (Unsp spec) [#/Vol] 2.11 10*3/uL 0.83-4.51 [facility] Basophil percentageOrdered B y: Gui Sloan on 06-29-2022 Basophils/100 WBC (Bld) 0.3 % 0-1 [facility] Bilirubin [Mass/Vol] 0.30 mg/dL 0.20-1.00 [facility] Comment on above: For patients on eltr ombopag therapy, use of Dimension [place] TBIL is not recommended. Chloride [Moles/Vol] 110 mmol/L 98-107 [facility] Eosinophils/100 WBC (Bld) 0.5 % 0-5 [facility] Glucose [Mass/Vol] 99 mg/dL 74-106 [facility] Neutrophils (Bld) [#/Vol] 8.5 10*3/uL 2.0-7.7 [facility] Neutrophils/100 WBC (Bld) 73.7 % 47-70 [facility] Potassium [Moles/Vol] 3.4 mmol/L 3.5-5.1 [facility] Protein [Mass/Vol] 6.4 g/dL 6.4-8.2 [facility] Sodium [Moles/Vol] 141 mmol/L 136-145 [facility] WBC (Bld) [#/Vol] 11.5 10*3/uL 4.4-11.0 [facility] Blood erythrocytes count (nu mber/volume)Ordered By: Gui Sloan on 06-29-2022 RBC (Bld) [#/Vol] 4.06 10*6/uL 4.2-5.4 [facility] Blood hemoglobin measurement (mass/volume)Ordered By: Gui Sloan on 06-29-2022 Hemoglobin (Bld) [Mass/Vol] 12.0 g/dL 12.0-15.0 [facility] Blood lymphocytes/100 leukoc ytesOrdered By: Gui Sloan on 06-29-2022 Lymphocytes/100 WBC (Bld) 18.3 % 19-41 [facility] Blood monocytes/100 leukocyt esOrdered By: Gui Sloan on 06-29-2022 Monocytes/100 WBC (Bld) 6.3 % 0-10 [facility] Blood platelet mean volumeOr dered By: Gui Sloan on 06-29-2022 Platelet mean volume (Bld) [Entitic vol] 11.4 fL 6.2-12.0 [facility] Determination of erythrocyte mean corpuscular volume (MCV)Ordered By: Gui Sloan on 06-29-2022 MCV (RBC) [Entitic vol] 87.7 fL 81-99 [facility] Hematocrit Auto (Bld) [Volum e fraction]Ordered By: Gui Sloan on 06-29-2022 Hematocrit (Bld) [Volume fraction] 35.6 % 37-47 [facility] Laboratory - Chemistry and C hemistry - challengeOrdered By: Gui Sloan on 06-29-2022 ALP [Catalytic activity/Vol] 106 U/L 45-117 [facility] ALT [Catalytic activity/Vol] 15 U/L 13-56 [facility] CO2 [Moles/Vol] 23.0 mmol/L 21.0-32.0 [facility] Globulin (S) [Mass/Vol] 3.9 g/dL 2.2-4.2 [facility] Urea nitrogen/Creatinine [Mass ratio] 6.6 mg/mg 10-20 [facility] Laboratory - Chemistry and C hemistry - challengeon 06-29-2022 Glucose Ql (U) Negative [facility] Laboratory - Hematology and Cell countsOrdered By: Gui Sloan on 06-29-2022 Erythrocyte distribution width (RBC) [Entitic vol] 42.1 fL 35.1-43.9 [facility] Erythrocyte distribution width (RBC) [Ratio] 13.2 % 11.6-14.6 [facility] Immature granulocytes/100 WBC (Bld) 0.900 % 0.0-0.9 [facility] Comment on above: IG% - Immature Granu locytes (promyelocytes, myelocytes and metamyelocytes) > 1% indicates that a LEFT SHIFT is Present. MCH (RBC) [Entitic mass] 29.6 pg 27.0-32.0 [facility] Nucleated RBC/100 WBC (Bld) [Ratio] 0 % 0-5 [facility] Laboratory - Urinalysison Protein Ql (U) Negative [facility] MCHC Auto (RBC) [Mass/Vol]Or dered By: Gui Sloan on 06-29-2022 MCHC (RBC) [Mass/Vol] 33.7 g/dL 32-36 [facility] No Panel InformationOrdered By: Gui Sloan on 06-29-2022 Estimated GFR (MDRD) Amer 154 mL/min >60 [facility] Comment on above: GFR Calc Estimated GFR (MDRD) Non-Af Amer 127 mL/min >60 [facility] Comment on above: Non- GFR Calc Miscellaneous Test See comment [facility] Comment on above: TEST RESULT LIMITSBi le Acids, Fractionated LCMS Ursodeoxycholic Acids 0.10 umol/L Reference Range: All Ages: <1.9 Cholic Acids 0.60 umol/L Reference Range: All Ages: <2.2 Chenodeoxycholic Acids 0.50 umol/L Reference Range: All Ages: <5.8 Deoxycholic Acids 0.80 umol/L Reference Range: All Ages: <3.3 Total Bile Acids 2.0 umol/L This test was developed and its performance characteristics determined by [email or web address]. It has not been cleared or approved by the Food and Drug Administration. Reference Range: All Ages: <9.2 TESTING PERFORMED AT [facility]. ORIGINAL REPORT ON FILE IN LAB CONTAINS ADDITIONAL TEST SITE INFORMATION. Platelets bldOrdered By: Rafa Sloan on 06-29-2022 Platelets (Bld) [#/Vol] 251 10*3/uL 150-450 [facility] Serum or plasma albumin jay urement (mass/volume)Ordered By: Gui Sloan on 06-29-2022 Albumin [Mass/Vol] 2.5 g/dL 3.2-5.0 [facility] Serum or plasma albumin/glob ulin mass ratioOrdered By: Gui Sloan on 06-29-2022 Albumin/Globulin [Mass ratio] 0.6 {ratio} 0.9-2.4 [facility] Serum or plasma calcium jay urement (mass/volume)Ordered By: Gui Sloan on 06-29-2022 Calcium [Mass/Vol] 8.6 mg/dL 8.5-10.1 [facility] Serum or plasma creatinine m easurement (mass/volume)Ordered By: Gui Sloan on 06-29-2022 Creatinine [Mass/Vol] 0.60 mg/dL 0.55-1.02 [facility] Comment on above: The validity of the calculated GFR & GFRAA in patients over 70 years has not been determined. Clinical correlation is essential. Serum or plasma urea nitroge n measurement (mass/volume)Ordered By: Gui Sloan on 06-29-2022 Urea nitrogen [Mass/Vol] 4 mg/dL 7-18 [facility] Thin prep Papanicolaou smear with manual screeningOrdered By: Guijeannette Sloan on 06-29-2022 Thin prep Papanicolaou smear with manual screening 14 U/L 15-37 [facility] Thin prep Papanicolaou smear with manual screening 8 5-15 [facility] Laboratory - Chemistry and C hemistry - challengeon 06-22-2022 Glucose Ql (U) Negative [facility] Laboratory - Urinalysison Protein Ql (U) Negative [facility] Laboratory - Chemistry and C hemistry - challengeon 06-08-2022 Glucose Ql (U) Negative [facility] Laboratory - Urinalysison Protein Ql (U) Negative [facility] Absolute lymphocyte countOrd ered By: Gui Sloan on 05-25-2022 Lymphocytes Auto (Unsp spec) [#/Vol] 2.12 10*3/uL 0.83-4.51 [facility] Basophil percentageOrdered B y: Gui Sloan on 05-25-2022 Basophils/100 WBC (Bld) 0.3 % 0-1 [facility] Eosinophils/100 WBC (Bld) 0.3 % 0-5 [facility] Neutrophils (Bld) [#/Vol] 9.0 10*3/uL 2.0-7.7 [facility] Neutrophils/100 WBC (Bld) 75.3 % 47-70 [facility] WBC (Bld) [#/Vol] 12.0 10*3/uL 4.4-11.0 [facility] Blood erythrocytes count (nu mber/volume)Ordered By: Gui Sloan on 05-25-2022 RBC (Bld) [#/Vol] 4.03 10*6/uL 4.2-5.4 [facility] Blood hemoglobin measurement (mass/volume)Ordered By: Gui Sloan on 05-25-2022 Hemoglobin (Bld) [Mass/Vol] 11.7 g/dL 12.0-15.0 [facility] Blood lymphocytes/100 leukoc ytesOrdered By: Gui Sloan on 05-25-2022 Lymphocytes/100 WBC (Bld) 17.7 % 19-41 [facility] Blood monocytes/100 leukocyt esOrdered By: Gui Sloan on 05-25-2022 Monocytes/100 WBC (Bld) 5.4 % 0-10 [facility] Blood platelet mean volumeOr dered By: Gui Sloan on 05-25-2022 Platelet mean volume (Bld) [Entitic vol] 11.2 fL 6.2-12.0 [facility] Determination of erythrocyte mean corpuscular volume (MCV)Ordered By: Gui Sloan on 05-25-2022 MCV (RBC) [Entitic vol] 89.3 fL 81-99 [facility] Gestational diabetes screen 1-hour screen with 50g oral glucose loadOrdered By: Gui Sloan on 05-25-2022 Glucose 1 Hr post 50 g glucose PO [Mass/Vol] 100 mg/dL 70-140 [facility] HIV 1 and HIV-2 antibody ass ay with HIV-1 p24 antigen detectionOrdered By: Gui Sloan on 05-25-2022 HIV 1+2 Ab+HIV1 p24 Ag IA Ql Non-Reactive Nonreactive [facility] Hematocrit Auto (Bld) [Volum e fraction]Ordered By: Gui Sloan on 05-25-2022 Hematocrit (Bld) [Volume fraction] 36.0 % 37-47 [facility] Laboratory - Hematology and Cell countsOrdered By: Gui Sloan on 05-25-2022 Erythrocyte distribution width (RBC) [Entitic vol] 42.0 fL 35.1-43.9 [facility] Erythrocyte distribution width (RBC) [Ratio] 12.9 % 11.6-14.6 [facility] Immature granulocytes/100 WBC (Bld) 1.000 % 0.0-0.9 [facility] Comment on above: IG% - Immature Granu locytes (promyelocytes, myelocytes and metamyelocytes) > 1% indicates that a LEFT SHIFT is Present. MCH (RBC) [Entitic mass] 29.0 pg 27.0-32.0 [facility] Nucleated RBC/100 WBC (Bld) [Ratio] 0 % 0-5 [facility] MCHC Auto (RBC) [Mass/Vol]Or dered By: Gui Sloan on 05-25-2022 MCHC (RBC) [Mass/Vol] 32.5 g/dL 32-36 [facility] Platelets bldOrdered By: Rafa Sloan on 05-25-2022 Platelets (Bld) [#/Vol] 283 10*3/uL 150-450 [facility] Serum Treponema species anti body detectionOrdered By: Gui Sloan on 05-25-2022 Treponema sp Ab Ql (S) Non-Reactive [facility] Laboratory - Chemistry and C hemistry - challengeon 05-12-2022 Glucose Ql (U) Negative [facility] Laboratory - Urinalysison Protein Ql (U) Negative [facility] Laboratory - Chemistry and C hemistry - challengeon 04-13-2022 Glucose Ql (U) Negative [facility] Laboratory - Urinalysison Protein Ql (U) Negative [facility] GROUP A STREP,PCRon 03-31-20 GROUP A STREP,PCR Not detected Normal Not Detected [facility] Comment on above: Result Comment: This test was performed utilizing an FDA-cleared rapid nucleic acid amplification by PCR to qualitatively detect Group A Streptococci from throat swab specimens without the need for culture confirmation of negative results. Performed By: #### G APC1 #### [place] [address] Lab Specimen Source Throat Normal [facility] Comment on above: Performed By: #### G APC1 #### [id number] [place] [address] Provider Note - ED v3on 03-17 Provider Note - ED v3 Provider Note: Chart Review ED NOTES ED NOTES: Patient presents for evaluation of 1 day hx of sore throat. States significant other has strep pharyngitis. Pt denies fever, cough, nasal congestion, n/v/d, fatigue, body aches, or any other associated symptoms or complaints. Pt is 19 weeks . No other complaints. HISTORY OF PRESENTING ILLNESS CLAUDIA is a 26 year old Female and was seen by me at 31-Mar-2022 13:49. Triage Information: Most recent Vital Sign Value Date PAST MEDICAL HISTORY ALLERGIES/INTOLERANCES: No Known Allergies HEALTH HISTORY: No documented data. OUTPATIENT MEDICATIONS: Home Medications Review Status for Reconciliation: Complete Med Status: Patient Currently Takes Medications Drug Name: VITAMIN D Instructions: once a day Drug Name: VITAMIN Instructions: null Drug Name: amoxicillin 875 mg oral tablet Instructions: 1 tab(s) orally 2 times a day x 7 days SIGNIFICANT EVENTS: Past Medical History Description:SEASONAL ALLERGIES Description:PCOS Past Surgical History Description:TONSILLECTOMY / CYST FROM TONGUE/ WISDOM TEETH LOCKS TENDER: Is : no Is : no REVIEW OF SYSTEMS All other systems reviewed and are negative REVIEW OF SYSTEMS: Comments See HPI PHYSICAL EXAM CONSTITUTIONAL: Well appearing, well nourished, awake, alert, oriented to person, place, time/situation and in no apparent distress. HENMT: Airway patent, ears with clear tympanic membranes bilaterally. Nasal mucosa clear. Mouth with normal mucosa. Throat has slight posterior OP erythema, no oropharyngeal exudates and uvula is midline. Face with no lymph node enlargement. EYES: Clear bilaterally, pupils equal, round and reactive to light. CARDIOVASCULAR: Normal rate, regular rhythm. Heart sounds S1, S2. No murmurs, rubs or gallops. PMI non-displaced. RESPIRATORY: Breath sounds clear and equal bilaterally. NEUROLOGICAL: Alert and oriented, no focal deficits, no motor or sensory deficits. SKIN: Skin normal color for race, warm, dry and intact. No evidence of trauma. PSYCHIATRIC: Alert and oriented to person, place, time/situation. normal mood and affect. No apparent risk to self or others. CRITICAL CARE VITAL SIGNS: T PRBP SpO2O2(LPM) %FiO2 Method 31-Mar-2022 13:41:[id number]/76 100 MDM MDM/ED COURSE: Discussed Findings with: patient Data Reviewed: vital signs Awaiting: lab results Treatment Plan: Rx amoxicillin. Swab obtained for strep testing. Encouraged pt to push by mouth fluids, otc tylenol and rest. Patient's clinical presentation is otherwise unremarkable at this time. Patient is discharged with instructions to follow-up with primary care or seek emergency medical attention for worsening symptoms or any new concerns. DISPOSITION Diagnosis/Annotation: ED Dx Name:Acute pharyngitis Code:J02.9 Name:Exposure to strep throat Code:Z20.818 Disposition: discharged Type: home CONSULT CRITICAL CARE TIME Is this a critically ill patient: no Electronic Signatures for Addendum Section: Lisa Rodriguez (ANDRE SANCHEZ) (Signed Addendum 01-Apr-2022 11:48) left message to return call for results Electronic Signatures: Lisa Rodriguez (ANDRE SANCHEZ) (Signature Pending) Authored: Attestation Ismael Davenport (CURTAIN ROLLER ASSEMBLER-DISASTER RECOVERY COORDINATOR) (Signed 31-Mar-2022 14:12) Authored: ED Notes, HPI, PMH, ROS, PE, Results/Vital Signs, MDM/ED Course, Clinical Impression, Attestation, Chart Review, Scores Last Updated: 01-Apr-2022 11:48 by Lisa Rodriguez (ANDRE II) Normal [facility] Laboratory - Chemistry and C hemistry - challengeon 03-16-2022 Glucose Ql (U) Negative [facility] Laboratory - Urinalysison Protein Ql (U) Negative [facility] Absolute lymphocyte counton 01-29-2022 Lymphocytes Auto (Unsp spec) [#/Vol] 2.43 10*3/uL 0.83-4.51 [facility] Work Phone: Basophil percentageon 2021 Basophils/100 WBC (Bld) 0.3 % 0-1 [facility] Work Phone: Eosinophils/100 WBC (Bld) 0.3 % 0-5 [facility] Work Phone: Neutrophils (Bld) [#/Vol] 7.7 10*3/uL 2.0-7.7 [facility] Work Phone: Neutrophils/100 WBC (Bld) 70.3 % 47-70 [facility] Work Phone: WBC (Bld) [#/Vol] 11.0 10*3/uL 4.4-11.0 [facility] Work Phone: Blood erythrocytes count (nu mber/volume)on 01-29-2022 RBC (Bld) [#/Vol] 4.56 10*6/uL 4.2-5.4 [facility] Work Phone: Blood hemoglobin measurement (mass/volume)on 01-29-2022 Hemoglobin (Bld) [Mass/Vol] 13.2 g/dL 12.0-15.0 [facility] Work Phone: Blood lymphocytes/100 leukoc yteson 01-29-2022 Lymphocytes/100 WBC (Bld) 22.2 % 19-41 [facility] Work Phone: Blood monocytes/100 leukocyt eson 01-29-2022 Monocytes/100 WBC (Bld) 6.4 % 0-10 [facility] Work Phone: Blood platelet mean volumeon 01-29-2022 Platelet mean volume (Bld) [Entitic vol] 11.2 fL 6.2-12.0 [facility] Work Phone: Determination of erythrocyte mean corpuscular volume (MCV)on 01-29-2022 MCV (RBC) [Entitic vol] 86.4 fL 81-99 [facility] Work Phone: Gestational diabetes screen 1-hour screen with 50g oral glucose loadon 01-29-2022 Glucose 1 Hr post 50 g glucose PO [Mass/Vol] 74 mg/dL 70-140 [facility] Work Phone: HIV 1 and HIV-2 antibody ass ay with HIV-1 p24 antigen detectionon 01-29-2022 HIV 1+2 Ab+HIV1 p24 Ag IA Ql Non-Reactive Nonreactive [facility] Work Phone: Hematocrit Auto (Bld) [Volum e fraction]on 01-29-2022 Hematocrit (Bld) [Volume fraction] 39.4 % 37-47 [facility] Work Phone: Laboratory - Hematology and Cell countson 01-29-2022 Erythrocyte distribution width (RBC) [Entitic vol] 38.4 fL 35.1-43.9 [facility] Work Phone: Erythrocyte distribution width (RBC) [Ratio] 12.1 % 11.6-14.6 [facility] Work Phone: Immature granulocytes/100 WBC (Bld) 0.500 % 0.0-0.9 [facility] Work Phone: Comment on above: IG% - Immature Granu locytes (promyelocytes, myelocytes and metamyelocytes) > 1% indicates that a LEFT SHIFT is Present. MCH (RBC) [Entitic mass] 28.9 pg 27.0-32.0 [facility] Work Phone: Nucleated RBC/100 WBC (Bld) [Ratio] 0 % 0-5 [facility] Work Phone: MCHC Auto (RBC) [Mass/Vol]on 01-29-2022 MCHC (RBC) [Mass/Vol] 33.5 g/dL 32-36 [facility] Work Phone: No Panel Informationon 01-29 Hepatitis B Surface Antigen Non-Reactive Nonreactive [facility] Work Phone: Hepatitis C Antibody Non-Reactive Nonreactive [facility] Work Phone: Comment on above: Non Reactive: < 0.8 Equivocal: >/= 0.8 to < 1.0 Reactive: >/= 1.0The CDC recommends that a reactive/equivocal HCV antibody result be followed up by the HCV Nucleic Acid Amplificationtest (363070) Miscellaneous Test Comment MAILED SPECIMEN [facility] Work Phone: Rubella IgG Antibody Reactive Nonreactive [facility] Work Phone: Comment on above: Antibody Results Int erpretation of Immune Status Non Reactive Presumed Non-Immune Equivocal Equivocal Reactive Presumed Immune Platelets bldon 01-29-2022 Platelets (Bld) [#/Vol] 293 10*3/uL 150-450 [facility] Work Phone: Serum Treponema species anti body detectionon 01-29-2022 Treponema sp Ab Ql (S) Non-Reactive [facility] Work Phone: Cervical or vagninal specime n microscopic examination by cytology stain (reported ason 01-20-2022 Cytology report Cyto stain Doc (Cvx/Vag) Comment . [facility] Work Phone: Comment on above: The Pap smear is a s creening test designed to aid in thedetection of premalignant and malignant conditions of theuterine cervix. It is not a diagnostic procedure andshould not be used as the sole means of detecting cervicalcancer. Both false-positive and false-negative reports dooccur. Chlamydia trachomatis rRNA d etection by probe and target amplification methodon 01-20-2022 C. trachomatis rRNA ABBY+probe Ql (Unsp spec) Negative Negative [facility] Work Phone: Laboratory - Cytologyon Apprenticeship Consultant Cyto stain Nom (Cvx/Vag) [ID] Comment . [facility] Work Phone: Comment on above: Deniz Davidsont echnologist (ASC) Laboratory - Drug toxicology on 01-20-2022 Amphetamines Ql (U) Negative <1000 ng/mL [facility] Work Phone: Benzodiazepines Ql (U) Negative < 200 ng/mL [facility] Work Phone: Cannabinoids Screen Ql (U) Negative < 50 ng/mL [facility] Work Phone: Cocaine Ql (U) Negative < 300 ng/mL [facility] Work Phone: Opiates Ql (U) Negative < 300 ng/mL [facility] Work Phone: Laboratory - Microbiology an d Antimicrobial susceptibilityon 01-20-2022 N. gonorrhoeae DNA ABBY+probe Ql (Unsp spec) Negative Negative [facility] Work Phone: Comment on above: Performed at: =G - [facility] [address] [id number] Director: Elisabeth Bui MD, Phone: [phone] Laboratory - Miscellaneous t estson 01-20-2022 Service comment (Unsp spec) [Interp] Comment . [facility] Work Phone: Comment on above: This liquid based Th inPrep(R) pap test was screened withthe use of an image guided system. Service comment (Unsp spec) [Interp] . . [facility] Work Phone: No Panel Informationon 01-20 Human Papillomavirus Screen Comment . [facility] Work Phone: Comment on above: The HPV DNA reflex c riteria were not met with this specimenresult therefore, no HPV testing was performed.Performed at: WB - [facility] [address] [id number] Director: Elisabeth Bui MD, Phone: [phone] MDMA (Ecstasy) Screen Negative < 500 ng/mL [facility] Work Phone: Pathology report final diagnosis Narrative Comment . [facility] Work Phone: Comment on above: NEGATIVE FOR INTRAEP ITHELIAL LESION OR MALIGNANCY.CELLULAR CHANGES ASSOCIATED WITH INFLAMMATION ARE PRESENT.THIS SPECIMEN WAS RESCREENED PART OF OUR MEAT PACKER PROGRAM. Urine Barbiturates Screen Negative < 200 ng/mL [facility] Work Phone: Urine Drug Screen Comment [facility] Work Phone: Comment on above: CONFIRMATORY TESTING FOR ALL POSITIVE URINE DRUG SCREENRESULTS WILL ONLY BE SENT OUT UPON PHYSICIAN ORDER. VISTA Urine Drug Screen methods provide only preliminaryanalytical test results. A more specific alternate chemicalmethod must be used in order to obtain a confirmedanalytical result. Gas chromatography/mass spectrometery(GC/MS) is the preferred confirmatory method. Clinicalconsideration and professional judgement should be appliedto any drug of abuse test result, particularly whenpreliminary positive results are used. URINE TCA TESTING MUST BE ORDERED SEPARATELY. USE TESTMNEMONIC: [facility] Urine Methadone Screen Negative < 300 ng/mL [facility] Work Phone: Urine phencyclidine (PCP) de tectionon 01-20-2022 Phencyclidine Ql (U) Negative < 25 ng/mL [facility] Work Phone: DHEA Sulfate, Serumon 2020 DHEA-S [Mass/Vol] 133 ug/dL 65 - 395 [facility] [address] Work Phone: Comment on above: MATURITY-BASED REFER ENCE RANGES: PUBERTAL (MOMO) STAGE MALE FEMALE I 5 - 265 5 - 125 II 15 - 380 15 - 150 III 60 - 505 20 - 535 IV 65 - 560 35 - 485 V 165 - 500 75 - 530 Biotin interference may cause falsely elevated results. Patients taking a Biotin dose of up to 5 mg/day should refrain from taking Biotin for 24 hours before sample collection. Providers may contact their local laboratoryfor further information. LOCKS TENDER - Office Visiton 06-17 LOCKS TENDER - Office Visit Diagnoses/Problems Assessed PCOS (polycystic ovarian syndrome) (256.4) (E28.2) Insulin resistance (277.7) (E88.81) Obesity (278.00) (E66.9) Orders Family Medicine Referral Evaluation and Treatment Evaluate AND Treat Status: Hold For - Scheduling Requested for: [id number] Nutrition Consult Referral Evaluation and Treatment Evaluate AND Treat Status: Hold For - Scheduling Requested for: [id number] 17-Hydroxyprogesterone, Serum; Status:Active; Requested for:05Jul2020; Follow-up PRN Outpatient Follow-up Status: Active Requested for: 05Jul2020 DHEA Sulfate, Serum; Status:Active; Requested for:05Jul2020; Follow-up visit in 12 months Outpatient Follow-up Status: Hold For - Scheduling Requested for: [id number] Provider Impressions 1)PCOS-patient needs to 3 [place] criteria(cycle and ultrasound) that meet the diagnosis. Personally reviewed the ultrasound in PACS and agree with the read for polycystic ovaries. Discussed first-line treatment is diet and exercise. Patient has some insulin assistance which is associated with obesity as well as PCOS. Discussed diet exercise and lifestyle modification as a treatment modality for PCOS. Offered dietary referral. Patient would like to see dietary. Discussed fertility briefly potential need for ovulation induction. Patient voiced understanding. Patient not interested in fertility this time. Discussed otherwise the risk of unopposed estrogen and need for cycle control. Patient understands and voices agreement. Patient on control. Additionally we will get DAH as well as 70 hydroxyprogesterone to evaluate. Patient does not have a PCP recommended 1 for follow-up for dietary focus vision issues and repeat hemoglobin A1c for insulin resistance. Chief Complaint PATIENT HERE TODAY FOR ULTRASOUND AND BLOOD WORK RESULTS. PATIENT HAS NO NEW CONCERNS. LMP-06/17/2020. History of Present [id number] presents with her results review. Patient is she is doing well on her control has no other acute concerns. Review of Systems Constitutional: No fevers, chills Eye:no vision changes Respiratory: no SOB Cardiovascular: no chest pain Gastrointestinal: No nausea, vomiting, diarrhea, constipation, abdominal pain Genitourinary:no dysuria Gynecology: See HPI Active Problems Problems Insulin resistance (277.7) (E88.81) Obesity (278.00) (E66.9) PCOS (polycystic ovarian syndrome) (256.4) (E28.2) Past Medical History Problems History of Menarche (V21.8) 12 Surgical History Problems History of Tonsillectomy 2019 Family History Father Family history of diabetes mellitus (V18.0) (Z83.3) Grandmother Family history of cervical cancer (V16.49) (Z80.49) Grandfather Family history of cerebrovascular accident (CVA) (V17.1) (Z82.3) Family history of hypertension (V17.49) (Z82.49) Family history of myocardial infarction (V17.3) (Z82.49) Aunt Family history of hypertension (V17.49) (Z82.49) Social History Problems Alcohol use (V49.89) (Z72.89) RARELY Never a smoker No illicit drug use Sexually active Allergies Medication No Known Drug Allergies Recorded By: Kalani Valencia; 06/14/2020 8:28:07 AM NonMedication Animal dander - Cats Recorded By: Kalani Valencia; 06/14/2020 8:28:07 AM Pollen Recorded By: Kalani Valencia; 06/14/2020 8:28:07 AM Current Meds Medication NameInstruction 1.5-30 MG-MCG Oral TabletTAKE 1 TABLET DAILY DIRECTED. metFORMIN HCl - 500 MG Oral TabletTAKE 1 TABLET TWICE DAILY. Vitals Vital Signs Recorded: 05Jul2020 11:29AM Rqxihobwiom19.3 F, Temporal Gcpynqbg051, LUE, Sitting Vjvuuljwx21, LUE, Sitting Height5 ft 3 in Kpkqme257 lb 12.24 oz BMI Puncgifyvf83.64 BSA Calculated2.03 [id number] Physical Exam General: None acute distress Eye: Intraocular movements are intact HEENT: Normocephalic Cardiovascular: Regular rate Respiratory: Respirations are nonlabored Gastrointestinal: Nondistended Musculoskeletal: Normal range of motion Neurologic: Alert and oriented x3 Psychiatric: Cooperative appropriate mood and affect. Results/Data Ultrasound Pelvis Transabdominal With Nubdpicspram68Stw8326 08:39AMAYunior borrego [Jun 14, 2020 9:00AM Yunior Mercado] Reason: Unspecified for Ultrasound Pelvis Transabdominal With Transvaginal Test NameResultFlagReference Ultrasound Pelvis Transabdominal With Transvaginal(Report) Interpreted by: SANGITA ZAMAN 06/20/20 10:32 Patient Name: CLAUDIA FARFAN STUDY: US PELVIS TRANSABDOMINAL WITH TRANSVAGINAL; 06/20/2020 8:39 am INDICATION: aub, ?PCOS. LMP 06/17/2020. On oral control. COMPARISON: 07/17/2017 ACCESSION NUMBER(S): [id number] ORDERING CLINICIAN: YUNIOR MERCADO TECHNIQUE: Multiple multiplanar static montiel scale, color and spectral waveform sonographic images of the pelvis were obtained. Transabdominal and endovaginal ultrasound was performed. FINDINGS: UTERUS: Anteverted uterus is 8.3 x 2.9 x 4.9 cm. The cervix is unremarkable. The myometrium is homogeneous. No mass. ENDOMETRIUM: Normal trilaminar appearance, 4 mm. RIGHT ADNEXA: The right ovary measures 3.2 x 1.8 x 1.9 cm, volume 5.7 cc. Multiple small follicles are present, difficult to tell on still images, however favor more than 12 less than 1 cm follicles present based on provided images. No dominant follicle. Normal Doppler flow. LEFT ADNEXA: The left ovary measures 2.6 x 2.2 x 1.8 cm, volume 5.2 cc. Multiple small follicles are present, difficult to tell on still images, however favor more than 12 less than 1 cm more follicles present based on provided images. No dominant follicle. Normal Doppler flow. CUL DE SAC: No free fluid. IMPRESSION: 1. Normal ovarian volume bilaterally. It is noted that patient on oral contraceptives can have decreased ovarian size, hence limiting sensitivity for detection of ovarian enlargement typical of PCOS. Both contain multiple small follicles, greater than 12 less than 1 cm follicles bilaterally, suggesting PCOS, clinical correlation suggested. 2. Unremarkable uterus. Electronically signed by: SANGITA ZAMAN 06/20/20 10:32 Complete Blood [id number] 07:47AMAdairYunior Test NameResultFlagReference White Blood Cell Count9.7 x10E9/L4.4 - 11.3 Red Blood Cell Count5.14 x10E12/LSee Below Reference Range: 4.00 - 5.20 Uqyhckpcre47.9 g/dLSee Below Reference Range: 12.0 - 16.0 HCT44.7 %See Below Reference Range: 36.0 - 46.0 MCV87 fL80 - 100 MCHC33.2 g/dLSee Below Reference Range: 32.0 - 36.0 Platelet Yfivq856 x10E9/L150 - 450 RDW-CV13.1 %See Below Reference Range: 11.5 - 14.5 TSH - Thyroid Stimulating Hormone, [id number] 07:47AMAdaYunior pichardo Test NameResultFlagReference Thyroid Stimulating Hormone, Serum1.86 mIU/LSee Below Reference Range: 0.44 - 3.98 TSH testing is performed using different testing methodology at [facility] than at other [facility]. Direct result comparisons should only be made within the same method. Testosterone, [id number] 07:47AMAdaYunior pichardo Test NameResultFlagReference Testosterone, Level<60 ng/dL0 - 70 Nandrolone decanoate, 11 Beta-hydroxytestosterone, androstenedione, testosterone propionate and 25-uylk-dnqptdijondr strongly cross react with this test method. Biotin interference may cause falsely elevated results. Patients taking a Biotin dose of up to 5 mg/day should refrain from taking Biotin for 24 hours before sample collection. Providers may contact their local laboratory for further information. Testing by a more sensitive method (Testosterone Total LC-MS/MS) is recommended for accurate quantification of testosterone levels less than 60 ng/dL. Signatures Electronically signed by : Yunior Mercado DO; Jul 05 2020 12:48PM EST (Author) Normal [place] LOCKS TENDER - Office Visiton 05-18 LOCKS TENDER - Office Visit Diagnoses/Problems Assessed Alcohol use (V49.89) (Z72.89) RARELY Abnormal uterine bleeding (AUB) (626.9) (N93.9) Orders Changed: From 1.5-30 MG-MCG Oral Tablet TAKE 1 TABLET DAILY To 1.5-30 MG-MCG Oral Tablet TAKE 1 TABLET DAILY DIRECTED Complete Blood Count; Status:Active; Requested for:14Jun2020; Follow-up visit in 2 weeks Outpatient Follow-up Status: Hold For - Scheduling Requested for: 14Jun2020 Testosterone, Level; Status:Active; Requested for:14Jun2020; TSH - Thyroid Stimulating Hormone, Serum; Status:Active; Requested for:14Jun2020; Ultrasound Pelvis Transabdominal With Transvaginal; Status:Active; Requested for:[id number]; Reason: Unspecified for Ultrasound Pelvis Transabdominal With Transvaginal Radiologist to Determine Optimal Study : Y What are the patient's signs and symptoms? : aub, ?PCOS Tobacco Use Screening; Status:Complete; Done: 14Jun2020 Provider Impressions 1)AUB-patient on control she will skip cycles. Plan initiate work-up as it does not seem that prior LOCKS TENDER did. We will get a CBC TSH and ultrasound. We will also add on testosterone to evaluate for potential PCOS. Briefly reviewed [place] criteria. Patient notes she is out of her control need a refill. Prescription provided. Plan for further follow-up about definitive diagnosis for PCOS in the future. All questions answered. Chief Complaint New patient here today for second opinion on PCOS diagnosis. Patient states she feels like she has cyst but has never had an ultrasound done. Patient has questions and concerns about trying to get in the future. LMP- History of Present Lywfbaa71-fhht-icq G0 presents for second opinion about potentially PCOS. Patient saw gynecology previously who said thought she had PCOS and started on control. Patient's PCP did some lab work which showed some insulin resistance and started on Metformin. Patient recently noticed a trace of her [place] for she worked up and like to discuss. Patient was educated on control cycles regular. Patient notes prior to that she would have periods where she will skip up to 3 months. Patient notes her periods are very painful. Patient notes no pain after during the rest of the month. Patient notes occasionally she will break out about the week before her cycle is due but otherwise she has not had any trouble with acne. Patient has a little bit of peach was but no significant facial hair. Patient sexually active without concerns. Patient needs control refill. Patient has no other acute concerns Review of Systems Constitutional: No fevers, chills Eye:no vision changes Respiratory: no SOB Cardiovascular: no chest pain Breast: No lump/mass or discharge Gastrointestinal: No nausea, vomiting, diarrhea, constipation, abdominal pain Genitourinary:no dysuria Gynecology: See HPI Endocrine: No heat or cold intolerance Musculoskeletal: No decreased ROM Skin:No rash Neurologic: No numbness tingling Psychiatric: No anxiety, depression All other: all other systems reviewed and negative for complaint Active Problems Problems Abnormal uterine bleeding (AUB) (626.9) (N93.9) Insulin resistance (277.7) (E88.81) Obesity (278.00) (E66.9) Past Medical History Problems History of Menarche (V21.8) 12 Surgical History Problems History of Tonsillectomy 2018 Family History Father Family history of diabetes mellitus (V18.0) (Z83.3) Grandmother Family history of cervical cancer (V16.49) (Z80.49) Grandfather Family history of cerebrovascular accident (CVA) (V17.1) (Z82.3) Family history of hypertension (V17.49) (Z82.49) Family history of myocardial infarction (V17.3) (Z82.49) Aunt Family history of hypertension (V17.49) (Z82.49) Social History Problems Alcohol use (V49.89) (Z72.89) RARELY Never a smoker No illicit drug use Sexually active Allergies Medication No Known Drug Allergies Recorded By: Kalani Valencia; 06/14/2020 8:28:07 AM NonMedication Animal dander - Cats Recorded By: Kalani Valencia; 06/14/2020 8:28:07 AM Pollen Recorded By: Kalani Valencia; 06/14/2020 8:28:07 AM Current Meds Medication NameInstruction TABS metFORMIN HCl - 500 MG Oral TabletTAKE 1 TABLET TWICE DAILY. Vitals Vital Signs Recorded: 14Jun2020 08:28AM Nsxgqotofpe36.5 F, Temporal Puynyaup440, LUE, Sitting Oslveittg77, LUE, Sitting Height5 ft 3 in Ufwsfk466 lb 3.30 oz BMI Iezlwructc74.72 BSA Calculated2.03 [id number] Physical Exam General: None acute distress Eye: Intraocular movements are intact HEENT: Normocephalic Respiratory: Lungs are clear to auscultation, respirations are nonlabored Gastrointestinal: Soft nontender nondistended normal bowel sounds Musculoskeletal: Normal range of motion Skin: Warm and dry Neurologic: Alert and oriented x3 Psychiatric: Cooperative appropriate mood and affect. Signatures Electronically signed by : Yunior Mercado DO; Jun 14 2020 9:02AM EST (Author) Normal [facility] 09-08-2018 Albumin mass conc 4.1 g/dL Normal 3.4-5.0 [facility] Comment on above: Performed By: #### 2 [id number] #### ADAIR Chemistry Manual Subsection [address] [place] [address] Albumin/Globulin mass ratio 1.4 {ratio} Normal 1.1-1.9 [facility] Comment on above: Performed By: #### 2 [id number] #### ADAIR Chemistry Manual Subsection [address] [place] [address] Alk Phos 55 Int._Unit/L Normal 33-110 [facility] Comment on above: Performed By: #### 2 [id number] #### ADAIR Chemistry Manual Subsection [facility] [place] [address] ALT enzyme act/vol 20 Int._Unit/L Normal 7-45 [facility] Comment on above: Performed By: #### 2 [id number] #### ADAIR Chemistry Manual Subsection [address] [place] [address] 27351 Anion gap molar conc 11 mmol/L Normal 10-20 [facility] Comment on above: Performed By: #### 2 [id number] #### ADAIR Chemistry Manual Subsection [address] [place] [address] 13247 AST enzyme act/vol 22 Int._Unit/L Normal 9-39 [facility] Comment on above: Performed By: #### 2 [id number] #### ADAIR Chemistry Manual Subsection [address] [place] [address] 27911 Bili Total 0.42 mg/dL Normal 0.00-1.20 [facility] Comment on above: Performed By: #### 2 [id number] #### ADAIR Chemistry Manual Subsection [address] [place] [address] 86513 Calcium mass conc 9.3 mg/dL Normal 8.6-10.3 [facility] Comment on above: Performed By: #### 2 [id number] #### ADAIR Chemistry Manual Subsection [address] [place] [address] 22650 Chloride molar conc 105 mmol/L Normal 98-107 [facility] Comment on above: Performed By: #### 2 [id number] #### ADAIR Chemistry Manual Subsection [address] [place] [address] 52722 CO2 molar conc 26.0 mmol/L Normal 21.0-32.0 [facility] Comment on above: Performed By: #### 2 [id number] #### ADAIR Chemistry Manual Subsection [address] [place] [address] 75498 Creatinine mass conc 0.8 mg/dL Normal 0.5-1.1 [facility] Comment on above: Performed By: #### 2 [id number] #### ADAIR Chemistry Manual Subsection [address] [place] [address] 26487 Globulin mass conc (S) 3.0 g/dL Normal 2.0-4.0 [facility] Comment on above: Performed By: #### 2 287167 #### ADAIR Chemistry Manual Subsection [facility] [place] [address] Glucose mass conc 84 mg/dL Normal 70-99 [facility] Comment on above: Performed By: #### 2 618183 #### ADAIR Chemistry Manual Subsection [address] [place] [address] 26996 Potassium molar conc 3.8 mmol/L Normal 3.5-5.3 [facility] Comment on above: Performed By: #### 2 438380 #### ADAIR Chemistry Manual Subsection [address] [place] [address] 09642 Protein mass conc 7.0 g/dL Normal 6.4-8.2 [facility] Comment on above: Performed By: #### 2 [id number] #### ADAIR Chemistry Manual Subsection [address] [place] [address] 91232 Sodium molar conc 138 mmol/L Normal 136-145 [facility] Comment on above: Performed By: #### 2 480532 #### ADAIR Chemistry Manual Subsection [address] [place] [address] 70256 Urea nitrogen mass conc 9 mg/dL Normal 6-23 [facility] Comment on above: Performed By: #### 2 085778 #### ADAIR Chemistry Manual Subsection [address] [place] [address] 22469 Urea nitrogen/Creatinine mass ratio 11.2 ratio Normal 5.4-30.0 [facility] Comment on above: Performed By: #### 2 [id number] #### ADAIR Chemistry Manual Subsection [address] [place] [address] eGFRon 09-08-2018 GFR/1.73 sq M predicted among non-blacks MDRD vol rate/area (S/P/Bld) mL/min/{1.73_m2} Normal [facility] Comment on above: Order Comment: Order added by Discern Expert. Performed By: #### 2 [id number] #### ADAIR Chemistry Manual Subsection [address] [place] [address]001 FSHon 07-26-2018 FSH 4.9 mIU/mL Normal [facility] Comment on above: Result Comment: Adul t Female: Follicular phase 3.5 - 12.5 Ovulation phase 4.7 - 21.5 Luteal phase 1.7 - 7.7 Postmenopausal 25.8 - 134.8 Performed At: [facility] [address] [place], [place] [id number] Don Quick PhD Ph:[phone] Performed By: #### 2 [id number] #### ADAIR Send Outs Subsection [address] [place] [address] Insulin Lvlon 07-26-2018 Insulin Lvl 42.5 mcIU/mL High 2.6-24.9 [facility] Comment on above: Result Comment: Perf ormed At: [address] [id number] Don Quick PhD Ph:[phone] Performed By: #### 2 [id number] #### ADAIR Chemistry Manual Subsection [facility] [place] [address] LHon 07-26-2018 LH 4.6 mIU/mL Normal [facility] Comment on above: Result Comment: Adul t Female: Follicular phase 2.4 - 12.6 Ovulation phase 14.0 - 95.6 Luteal phase 1.0 - 11.4 Postmenopausal 7.7 - 58.5 Performed At: [address] [id number] Don Quick PhD Ph:[phone] Performed By: #### 2 [id number] #### ADAIR Send Outs Subsection [facility] [place] [address] Prolactin Lvlon 07-26-2018 Protein mass conc 9.2 ng/mL Normal 4.8-23.3 [facility] Comment on above: Result Comment: Perf ormed At: [id number] [place], [place] [id number] Don Quick PhD Ph:[phone] Performed By: #### 2 [id number] #### ADAIR Chemistry Manual Subsection [facility] [place] [address] Testost Totalon 07-26-2018 Testoster Tot 16 ng/dL Normal 8-48 [facility] Comment on above: Result Comment: Perf ormed At: [address] [id number] Don Quick PhD Ph:[phone] Performed By: #### 2 [id number] #### ADAIR Chemistry Manual Subsection [address] [place] [address] BhCG Qualon 07-25-2018 HCG.beta subunit Qn Negative Normal Negative [facility] Comment on above: Performed By: #### 2 [id number] #### ADAIR Chemistry Manual Subsection [address] [place] [address] CMPon 07-25-2018 Albumin mass conc 4.0 g/dL Normal 3.4-5.0 [facility] Comment on above: Performed By: #### 2 395649 #### ADAIR Datalink [address] [place] [address] 51566 Albumin/Globulin mass ratio 1.3 {ratio} Normal 1.1-1.9 [facility] Comment on above: Performed By: #### 2 139926 #### ADAIR Datalink [address] [place] [address]149 Alk Phos 45 Int._Unit/L Normal 33-110 [facility] Comment on above: Performed By: #### 2 042808 #### ADAIR Datalink [address] [place] [address] 38322 ALT enzyme act/vol 10 Int._Unit/L Normal 7-45 [facility] Comment on above: Performed By: #### 2 450842 #### ADAIR Datalink [address] [place] [address] 63433 Anion gap molar conc 10 mmol/L Normal 10-20 [facility] Comment on above: Performed By: #### 2 305142 #### ADAIR Datalink [address] [place] [address] 08521 AST enzyme act/vol 10 Int._Unit/L Normal 9-39 [facility] Comment on above: Performed By: #### 2 [id number] #### ADAIR Datalink [address] [place] [address] 07115 Bili Total 0.23 mg/dL Normal 0.00-1.20 [facility] Comment on above: Performed By: #### 2 140095 #### ADAIR Datalink [address] [place] [address] 56937 Calcium mass conc 8.9 mg/dL Normal 8.6-10.3 [facility] Comment on above: Performed By: #### 2 817583 #### ADAIR Datalink [address] [place] [address] 03199 Chloride molar conc 107 mmol/L Normal 98-107 [facility] Comment on above: Performed By: #### 2 707390 #### ADAIR Datalink [address] [place] [address] 80552 CO2 molar conc 26.0 mmol/L Normal 21.0-32.0 [facility] Comment on above: Performed By: #### 2 210855 #### ADAIR Datalink [address] [place] [address] 82410 Creatinine mass conc 0.7 mg/dL Normal 0.5-1.1 [facility] Comment on above: Performed By: #### 2 093570 #### ADAIR Datalink [address] [place] [address] 46590 Globulin mass conc (S) 3.0 g/dL Normal 2.0-4.0 [facility] Comment on above: Performed By: #### 2 038249 #### ADAIR Datalink [address] [place] [address] 24153 Glucose mass conc 90 mg/dL Normal 70-99 [facility] Comment on above: Performed By: #### 2 242703 #### ADAIR Datalink [address] [place] [address] 12728 Potassium molar conc 3.9 mmol/L Normal 3.5-5.3 [facility] Comment on above: Performed By: #### 2 134370 #### ADAIR Datalink [address] [place] [address] 42545 Protein mass conc 7.1 g/dL Normal 6.4-8.2 [facility] Comment on above: Performed By: #### 2 557161 #### ADAIR Datalink [address] [place] [address] 19979 Sodium molar conc 139 mmol/L Normal 136-145 [facility] Comment on above: Performed By: #### 2 915424 #### ADAIR Datalink [address] [place] [address] 85402 Urea nitrogen mass conc 10 mg/dL Normal 6-23 [facility] Comment on above: Performed By: #### 2 640646 #### ADAIR Datalink [facility] [place] [address] Urea nitrogen/Creatinine mass ratio 14.3 ratio Normal 5.4-30.0 [facility] Comment on above: Performed By: #### 2 684569 #### ADAIR Datalink [address] [place] [address] 50769 KdtW4jkp 07-25-2018 Hemoglobin A1c/Hemoglobin.total mass fraction (Bld) 5.0 % Normal 4.0-6.3 [facility] Comment on above: Performed By: #### 3 [id number] #### ADAIR Chemistry Manual Subsection [address] [place], [place] [id number] Lipid Profileon 07-25-2018 Cholesterol in HDL mass conc 37 mg/dL Low >=45 [facility] Comment on above: Performed By: #### 3 [id number] #### ADAIR Datalink [address] [place] [address] 70567 Cholesterol in LDL mass conc 102 mg/dL Normal 0-130 [facility] Comment on above: Result Comment: <100 OPTIMAL 100-129 NEAR / ABOVE OPTIMAL 130-159 BORDERLINE HIGH 160-189 HIGH >190 VERY HIGH CALC LDL NOT VALID WHEN TRIGLYCERIDE IS >400 MG/DL Performed By: #### 3 [id number] #### ADAIR Datalink [address] [place] [address] 40241 Cholesterol in VLDL mass conc 39 mg/dL Normal 0-40 [facility] Comment on above: Performed By: #### 3 [id number] #### ADAIR Datalink [address] [place] [address] 47947 Cholesterol mass conc 178 mg/dL Normal 0-189 [facility] Comment on above: Result Comment: TOTA L CHOLEESTEROL: <200 NORMAL 200 - 239 BORDERLINE HIGH >240 HIGH Performed By: #### 3 [id number] #### ADAIR Datalink [address] [place] [address] 14025 Triglyceride mass conc 193 mg/dL High 0-149 [facility] Comment on above: Result Comment: AGE DESIRABLE BORDERLINE HIGH 91 D - 9 Y 0 - 74 75 - 99 > 100 10 - 19 Y 0 - 89 90 - 129 > 130 20 -24 Y 0 - 114 115 - 149 > 150 > 25 0 - 149 150 - 199 200 - 499 Performed By: #### 3 [id number] #### ADAIR Datalink [facility] [place] [address] TSHon 07-25-2018 Thyrotropin Qn 2.48 mcIU/mL Normal 0.30-5.60 [facility] Comment on above: Performed By: #### 2 578912 #### ADAIR [employer] [address] [place] [address] U BhCG Qlton 07-25-2018 HCG.beta subunit Qn Negative Normal Neg [facility] Comment on above: Performed By: #### 2 129917 #### ADAIR Urinalysis Manual Subsection [address] [place] [address] eGFRon 07-25-2018 GFR/1.73 sq M predicted among non-blacks MDRD vol rate/area (S/P/Bld) mL/min/{1.73_m2} Normal [facility] Comment on above: Order Comment: Order added by Discern Expert. Performed By: #### 1 [id number] #### ADAIR [employer] [address] [place] [address] C Urineon 02-12-2018 C Urine Final Report: >100,0 00 cfu/ml Escherichia coli ORGANISM: EC SUSCEPTIBILITY RESULTS Antibiotic FREDY Dilutn FREDY Interp ORGANISM: EC Amox/Cla : <=8/4 S Amp : <=8 S Amp/Sul : <=8/4 S Cefaz : <=8 S Cefo : <=2 S Cipro : <=1 S Gent : <=4 S Levo : <=2 S Karen : <=1 S Nitro : <=32 S Pip/Rodrigo : <=16 S Tetra : <=4 S Tobra : <=4 S SXT : <=2/38 S Normal [facility] Comment on above: Performed By: #### 2 [id number] #### ADAIR Microbiology Subsection [address] [place] [address] FINGERS LT HAND 2ND DIGITon 11-16-2017 FINGERS LT HAND 2ND DIGIT DATE OF EXAM: Nov 16 2017 1:58PMCLINICAL HISTORY/ Name: WILLIS FARFANTUDY:FINGERS LT HAND 2ND DIGIT; 11/16/2017 1:58 pmINDICATION:Trauma.NAMAN RISON:None. ING CLINICIAN:MARLA TIJERINA:Three views of the left 2nd digit including AP, oblique and lateral projections were obtained.FINDINGS:There is no radiographic evidence of acute fracture or dislocation identified. The joint spaces are well preserved without significant degenerative changes.CONCLUSION: IMPRESSION:1. No fracture or dislocation identified. Normal [facility] CBC With Differentialon 12-0 -2016 Basophils Auto #/vol (Bld) 0.05 10*3/uL Normal 0.01-0.07 [facility] Comment on above: Performed By: #### 2 [id number] ####[id number] [place] [address] Basophils/100 WBC Auto (Bld) 0.4 % Normal 0.1-1.2 [facility] Comment on above: Performed By: #### 2 [id number] ####[facility] [address] [place] [address] Eosinophils Auto #/vol (Bld) 0.09 10*3/uL Normal 0.04-0.50 [facility] Comment on above: Performed By: #### 2 [id number] ####[facility] [address] [place] [address] Eosinophils/100 WBC Auto (Bld) 0.7 % Normal 0.0-8.1 [facility] Comment on above: Performed By: #### 2 [id number] ####[facility] [address] [place] [address] Erythrocyte distribution width Auto Ratio (RBC) 12.7 % Normal 12.0-15.4 [facility] Comment on above: Performed By: #### 2 [id number] ####[facility] [address] [place] [address] Hematocrit Auto Volume Fraction (Bld) 43.8 % Normal 36.5-46.6 [facility] Comment on above: Performed By: #### 2 [id number] ####[facility] [address] [place] [address] Hemoglobin mass conc (Bld) 14.8 g/dL Normal 11.8-15.3 [facility] Comment on above: Performed By: #### 2 [id number] ####[address] [address] Imm Grans Absolute 0.05 10*3/uL Normal 0.00-0.21 [facility] Comment on above: Performed By: #### 2 [id number] ####[address] [address] Immature granulocytes #/vol (Bld) 0.4 % Normal [facility] Comment on above: Performed By: #### 2 [id number] ####[address] [address] Lymphocytes Auto #/vol (Bld) 3.12 10*3/uL High 0.40-2.84 [facility] Comment on above: Performed By: #### 2 [id number] ####[address] [address] Lymphocytes/100 WBC Auto (Bld) 25.8 % Normal 15.7-50.5 [facility] Comment on above: Performed By: #### 2 [id number] ####[address] [address] MCH Auto Entitic mass (RBC) 28.8 pg Normal 27.5-33.0 [facility] Comment on above: Performed By: #### 2 [id number] ####[address] [address] MCHC Auto mass conc (RBC) 33.8 g/dL Normal 30.1-35.0 [facility] Comment on above: Performed By: #### 2 [id number] ####[address] [address] MCV Auto Entitic volume (RBC) 85.4 fL Normal 85.4-100.0 [facility] Comment on above: Performed By: #### 2 [id number] ####[address] [address] Monocytes Auto #/vol (Bld) 0.72 10*3/uL Normal 0.25-0.83 [facility] Comment on above: Performed By: #### 2 711091 ####[facility] [address] [place] [address] Monocytes/100 WBC Auto (Bld) 6.0 % Normal 4.8-12.7 [facility] Comment on above: Performed By: #### 2 [id number] ####[facility] Y[address] [place] [address] Neutrophils Absolute 8.07 10*3/uL High 1.95-6.85 [facility] Comment on above: Performed By: #### 2 [id number] ####[facility] [address] [place] [address] Neutrophils/100 WBC Auto (Bld) 66.7 % Normal 36.8-73.2 [facility] Comment on above: Performed By: #### 2 [id number] ####[facility] I[address] [place] [address] NRBC Absolute 0.00 10*3/uL Normal [facility] Comment on above: Performed By: #### 2 [id number] ####[facility] Qzz[address] [place] [address] NRBC Automated 0.0 /100{WBCs} Normal [facility] Comment on above: Performed By: #### 2 [id number] ####[facility] [address] [place] [address] Platelet mean volume Auto Entitic volume (Bld) 10.8 fL Normal 9.9-12.1 [facility] Comment on above: Performed By: #### 2 [id number] ####[facility] Mkb[address] [place] [address] Platelets Auto #/vol (Bld) 302 10*3/uL Normal 155-404 [facility] Comment on above: Performed By: #### 2 [id number] ####[facility] Spj[address] [place] [address] RBC Auto #/vol (Bld) 5.13 10*6/uL High 3.85-5.10 [facility] Comment on above: Performed By: #### 2 [id number] ####[facility] Rvf[address] [facility] [place] [address] RDW SD 39.6 fL Normal 39.3-48.6 [facility] Comment on above: Performed By: #### 2 [id number] ####[facility] [address] [place] [address] WBC Auto #/vol (Bld) 12.1 10*3/uL High 4.4-9.9 [facility] Comment on above: Performed By: #### 2 [id number] ####[facility] Jhk[address] [place] [address] CT NECK W/CONTRASTon 017 CT NECK W/CONTRAST DATE OF EXAM: Apr 17 2017 8:50PMCLINICAL HISTORY/ Name: ADOLPHWILLISTUDY:CT NECK W/CONTRAST; 04/17/2017 8:50 pmINDICATION:for mass.COMPARISON:Ultrasoun d dated 04/13/2017ACCESSION NUMBER(S):[id number] ING CLINICIAN:BEBE THORPETECHKARIN:Following intravenous injection axial CT was performed from the skullbase to the thoracic inlet and multiplanar reconstructions were made.FINDINGS:There is a marker in the right neck overlying the right sternocleidomastoid muscle. At the marked area of clinical interest, there is no abnormal attenuation or enhancement to suggest mass.There is no abscess.There are mildly enlarged lymph nodes likely reactive in nature; attention on follow-up.The visualized paranasal sinuses, mastoid air cells, major salivary glands, larynx and related cartilages, and thyroid gland are unremarkable.CONCLUSION: IMPRESSION:No mass or abscess.Reactive lymphadenopathy; attention on follow-up. Normal [facility] CT THORAX WITH CONTRASTon CT THORAX WITH CONTRAST DATE OF EXAM: Apr 17 2017 8:50PMCLINICAL HISTORY/ Name: ADOLPHWILLISTUDY:CT THORAX WITH CONTRAST; 04/17/2017 8:50 pmINDICATION:for mass.COMPARISON:None.ACCE SSION NUMBER(S):[id number] ING CLINICIAN:SHUKRI POE:Axial CT images of the chest obtained after intravenous administration of contrast.FINDINGS:VESSELS : Aorta and pulmonary artery are normal caliber.HEART: Normal size. No pericardial effusion.MEDIASTINUM AND HALLE: No pathologically enlarged lymph nodes. Anterior mediastinal soft tissue likely represents residual thymus rather than lymphadenopathy.LUNG, PLEURA, AND LARGE AIRWAYS: Within normal limits.CHEST WALL AND LOWER NECK: Within normal limits.UPPER ABDOMEN: No acute abnormality of the partially visualized abdomen.BONES: No acute osseous abnormality.CONCLUSION: IMPRESSION:No mass or lymphadenopathy. Normal [facility] Comprehensive Metabolic Pane [facility] 04-17-2017 Albumin mass conc 4.3 g/dL Normal 3.4-5.0 [facility] Comment on above: Performed By: #### 1 [id number] ####[facility] [address] [place] [address] Albumin/Globulin mass ratio 1.2 {ratio} Normal 0.9-2.4 [facility] Comment on above: Performed By: #### 1 [id number] ####[facility] Gin[address] [place] [address] ALP enzyme act/vol 62 U/L Normal 45-117 [facility] Comment on above: Performed By: #### 1 [id number] ####[facility] Glq[address] [place] [address] ALT enzyme act/vol 11 U/L Normal 7-45 [facility] Comment on above: Performed By: #### 1 [id number] ####[facility] [address]jw[address] [place] [address] Anion gap 3 molar conc 14 mmol/L Normal 10-20 [facility] Comment on above: Performed By: #### 1 [id number] ####[facility] Aes[address] [place] [address] AST enzyme act/vol 18 U/L Normal 13-39 [facility] Comment on above: Performed By: #### 1 [id number] ####[facility] Wii[address] [place] [address] Bilirubin mass conc 0.3 mg/dL Normal 0.0-1.2 [facility] Comment on above: Performed By: #### 1 [id number] ####[facility] [address] [facility] [address] Calcium mass conc 9.4 mg/dL Normal 8.6-10.3 [facility] Comment on above: Performed By: #### 1 [id number] ####[facility] [address] [facility] [place] [address] Chloride molar conc 103 mmol/L Normal 98-107 [facility] Comment on above: Performed By: #### 1 [id number] ####[facility] [address] [facility] [address] Creatinine mass conc 1.10 mg/dL High 0.50-1.05 [facility] Comment on above: Performed By: #### 1 [id number] ####[facility] Cxh[address] [place] [address] GFR/1.73 sq M.predicted MDRD vol rate/area mL/min/{1.73_m2} Normal [facility] Comment on above: Result Comment: Inte rpretation for Chronic Kidney Disease:Stages 1&2 >60 Healthy or potential kidney damage.Mild decrease of GFR.Stage 3 30-59 Moderate decrease of GFR.Stage 4 15-29 Severe decrease of GFR.Stage 5 <15 Kidney failure or on dialysis. Performed By: #### 1 [id number] ####[facility] [address] [place] [address] Glucose mass conc 91 mg/dL Normal 70-100 [facility] Comment on above: Performed By: #### 1 [id number] ####[facility] [address] [facility] [place] [address] HCO3 molar conc (Bld) 24 mmol/L Normal 21-32 [facility] Comment on above: Performed By: #### 1 [id number] ####[facility] [address] [facility] [place] [address] Potassium molar conc 3.6 mmol/L Normal 3.5-5.1 [facility] Comment on above: Performed By: #### 1 [id number] ####[facility] [address] [facility] [place] [address] Protein mass conc 7.8 g/dL Normal 6.4-8.2 [facility] Comment on above: Performed By: #### 1 [id number] ####[facility] [address] [place] [address] Sodium molar conc 137 mmol/L Normal 136-145 [facility] Comment on above: Performed By: #### 1 [id number] ####[facility] [address] [place] [address] Urea nitrogen mass conc 14 mg/dL Normal 6-23 [facility] Comment on above: Performed By: #### 1 [id number] ####[facility] [address] [place] [address] Urea nitrogen/Creatinine mass ratio 13 mg/mg Normal 5-25 [facility] Comment on above: Performed By: #### 1 [id number] ####[facility] [address] [place] [address] Test (Serum)on Test, Serum Negative Normal [facility] Comment on above: Performed By: #### 3 [id number] ####[facility] [address] [place] [address] Culture, urine Bacteria identified Cx Nom (U) Positive [facility] Work Phone: Vital Signs Date Time Vital Sign Value Performing Clinician Facility 11-01-2024 10:28-0400 Body height 160.02 cm No Primary Care Physician [facility] 11-01-2024 10:28-0400 Body mass index (BMI) [Ratio] 41.3 kg/m2 No Primary Care Physician [facility] 11-01-2024 10:28-0400 Body weight 105.85 kg No Primary Care Physician [facility] 11-01-2024 10:28-0400 Diastolic blood pressure 80 mm[Hg] No Primary Care Physician [facility] 11-01-2024 10:28-0400 Systolic blood pressure 135 mm[Hg] No Primary Care Physician [facility] 10-20-2024 09:02-0400 Body height 160.02 cm No Primary Care Physician [facility] 10-20-2024 08:58-0400 Body mass index (BMI) [Ratio] 40.9 kg/m2 No Primary Care Physician [facility] 10-20-2024 08:58-0400 Body weight 104.77 kg No Primary Care Physician [facility] 10-20-2024 08:58-0400 Diastolic blood pressure 78 mm[Hg] No Primary Care Physician [facility] 10-20-2024 08:58-0400 Systolic blood pressure 119 mm[Hg] No Primary Care Physician [facility] 10-02-2024 09:03-0400 Body height 160.02 cm No Primary Care Physician [facility] 10-02-2024 09:02-0400 Body mass index (BMI) [Ratio] 40.7 kg/m2 No Primary Care Physician [facility] 10-02-2024 09:02-0400 Body weight 104.32 kg No Primary Care Physician [facility] 10-02-2024 09:02-0400 Diastolic blood pressure 76 mm[Hg] No Primary Care Physician [facility] 10-02-2024 09:02-0400 Systolic blood pressure 124 mm[Hg] No Primary Care Physician [facility] 09-20-2024 09:57-0400 Body mass index (BMI) [Ratio] 39.8 kg/m2 No Primary Care Physician [facility] 09-20-2024 09:57-0400 Body weight 102.05 kg No Primary Care Physician [facility] 09-20-2024 09:57-0400 Diastolic blood pressure 66 mm[Hg] No Primary Care Physician [facility] 09-20-2024 09:57-0400 Systolic blood pressure 108 mm[Hg] No Primary Care Physician [facility] 08-21-2024 08:34-0400 Body height 160.02 cm No Primary Care Physician [facility] 08-21-2024 08:31-0400 Body mass index (BMI) [Ratio] 39.6 kg/m2 No Primary Care Physician [facility] 08-21-2024 08:31-0400 Body weight 101.37 kg No Primary Care Physician [facility] 08-21-2024 08:31-0400 Diastolic blood pressure 75 mm[Hg] No Primary Care Physician [facility] 08-21-2024 08:31-0400 Systolic blood pressure 122 mm[Hg] No Primary Care Physician [facility] 07-28-2024 08:36-0400 Body mass index (BMI) [Ratio] 39.3 kg/m2 No Primary Care Physician [facility] 07-28-2024 08:36-0400 Body weight 100.69 kg No Primary Care Physician [facility] 07-28-2024 08:36-0400 Diastolic blood pressure 72 mm[Hg] No Primary Care Physician [facility] 07-28-2024 08:36-0400 Systolic blood pressure 110 mm[Hg] No Primary Care Physician [facility] 06-26-2024 09:40-0500 Body mass index (BMI) [Ratio] 38.1 kg/m2 No Primary Care Physician [facility] 06-26-2024 09:40-0500 Body weight 97.57 kg No Primary Care Physician [facility] 06-26-2024 09:40-0500 Diastolic blood pressure 76 mm[Hg] No Primary Care Physician [facility] 06-26-2024 09:40-0500 Systolic blood pressure 119 mm[Hg] No Primary Care Physician [facility] 05-24-2024 08:31-0500 Body mass index (BMI) [Ratio] 38.2 kg/m2 No Primary Care Physician [facility] 05-24-2024 08:31-0500 Body weight 97.97 kg No Primary Care Physician [facility] 05-24-2024 08:31-0500 Diastolic blood pressure 72 mm[Hg] No Primary Care Physician [facility] 05-24-2024 08:31-0500 Systolic blood pressure 116 mm[Hg] No Primary Care Physician [facility] 03-17-2024 08:55-0400 Body height 160 cm Hector Winchester APRN.CNP Work Phone: [facility] 03-17-2024 08:55-0400 Body mass index (BMI) [Ratio] 35.78 kg/m2 Hector Winchester APRN.CNP Work Phone: [facility] 03-17-2024 08:55-0400 Body temperature 97.7 [degF] Hector Winchester APRN.CNP Work Phone: [facility] 03-17-2024 08:55-0400 Body weight 91.63 kg Hector Trill CURTAIN ROLLER ASSEMBLER.DISASTER RECOVERY COORDINATOR Work Phone: [facility] 03-17-2024 08:55-0400 Diastolic blood pressure 70 mm[Hg] Hector Trill CURTAIN ROLLER ASSEMBLER.DISASTER RECOVERY COORDINATOR Work Phone: [facility] 03-17-2024 08:55-0400 Heart rate 72 /min Hector Trill CURTAIN ROLLER ASSEMBLER.DISASTER RECOVERY COORDINATOR Work Phone: [facility] 03-17-2024 08:55-0400 SaO2% (BldA) [Mass fraction] 98 % Hector Trill CURTAIN ROLLER ASSEMBLER.DISASTER RECOVERY COORDINATOR Work Phone: [facility] 03-17-2024 08:55-0400 Systolic blood pressure 110 mm[Hg] Hector Trill CURTAIN ROLLER ASSEMBLER.DISASTER RECOVERY COORDINATOR Work Phone: [facility] 01-04-2024 11:17-0400 Body height 160 cm Hector Trill CURTAIN ROLLER ASSEMBLER.DISASTER RECOVERY COORDINATOR Work Phone: [facility] 01-04-2024 11:17-0400 Body mass index (BMI) [Ratio] 39.15 kg/m2 Hector Trill CURTAIN ROLLER ASSEMBLER.DISASTER RECOVERY COORDINATOR Work Phone: [facility] 01-04-2024 11:17-0400 Body temperature 98.29 [degF] Hector Trill CURTAIN ROLLER ASSEMBLER.DISASTER RECOVERY COORDINATOR Work Phone: [facility] 01-04-2024 11:17-0400 Body weight 100.25 kg Hector Trill CURTAIN ROLLER ASSEMBLER.DISASTER RECOVERY COORDINATOR Work Phone: [facility] 01-04-2024 11:17-0400 Diastolic blood pressure 70 mm[Hg] Hector Trill CURTAIN ROLLER ASSEMBLER.DISASTER RECOVERY COORDINATOR Work Phone: [facility] 01-04-2024 11:17-0400 Heart rate 73 /min Hector Trill CURTAIN ROLLER ASSEMBLER.DISASTER RECOVERY COORDINATOR Work Phone: [facility] 01-04-2024 11:17-0400 SaO2% (BldA) [Mass fraction] 99 % Hector Trill CURTAIN ROLLER ASSEMBLER.DISASTER RECOVERY COORDINATOR Work Phone: [facility] 01-04-2024 11:17-0400 Systolic blood pressure 110 mm[Hg] Hectorcat Cornejokehinde MACIELDISASTER RECOVERY COORDINATOR Work Phone: [facility] 10-22-2023 17:02-0400 Body height 160 cm Caitlin Agrcia CURTAIN ROLLER ASSEMBLER-DISASTER RECOVERY COORDINATOR Work Phone: [facility] 10-22-2023 17:02-0400 Body mass index (BMI) [Ratio] 37.91 kg/m2 Caitlin Garcia CURTAIN ROLLER ASSEMBLER-DISASTER RECOVERY COORDINATOR Work Phone: [facility] 10-22-2023 17:02-0400 Body temperature 98.1 [degF] Caitlin Garcia CURTAIN ROLLER ASSEMBLER-DISASTER RECOVERY COORDINATOR Work Phone: [phone] [place] [address] 10-22-2023 17:02-0400 Body weight 97.07 kg Caitlin Garcia CURTAIN ROLLER ASSEMBLER-DISASTER RECOVERY COORDINATOR Work Phone: [phone] [place] [address] 10-22-2023 17:02-0400 Diastolic blood pressure 71 mm[Hg] Caitlin Garcia CURTAIN ROLLER ASSEMBLER-DISASTER RECOVERY COORDINATOR Work Phone: [facility] 10-22-2023 17:02-0400 Heart rate 71 /min Caitlin Garcia CURTAIN ROLLER ASSEMBLER-DISASTER RECOVERY COORDINATOR Work Phone: [facility] 10-22-2023 17:02-0400 Respiratory rate 14 /min Caitlin Garcia CURTAIN ROLLER ASSEMBLER-DISASTER RECOVERY COORDINATOR Work Phone: [facility] 10-22-2023 17:02-0400 SaO2% (BldA) [Mass fraction] 97 % Caitlin Garcia CURTAIN ROLLER ASSEMBLER-DISASTER RECOVERY COORDINATOR Work Phone: [facility] 10-22-2023 17:02-0400 Systolic blood pressure 108 mm[Hg] Caitlin Garcia CURTAIN ROLLER ASSEMBLER-DISASTER RECOVERY COORDINATOR Work Phone: [facility] 03-12-2023 14:17-0400 Body height 160.02 cm No Primary Care Physician [facility] 03-12-2023 14:17-0400 Body mass index (BMI) [Ratio] 40 kg/m2 No Primary Care Physician [facility] 03-12-2023 14:17-0400 Body temperature 97.4 [degF] No Primary Care Physician [facility] 03-12-2023 14:17-0400 Body weight 102.51 kg No Primary Care Physician [facility] 03-12-2023 14:17-0400 Diastolic blood pressure 76 mm[Hg] No Primary Care Physician [facility] 03-12-2023 14:17-0400 Heart rate 102 /min No Primary Care Physician [facility] 03-12-2023 14:17-0400 Respiratory rate 18 /min No Primary Care Physician [facility] 03-12-2023 14:17-0400 SaO2% (BldA) [Mass fraction] 100 % No Primary Care Physician [facility] 03-12-2023 14:17-0400 Systolic blood pressure 128 mm[Hg] No Primary Care Physician [facility] 03-02-2023 16:26-0400 Body temperature 97.5 [degF] No Primary Care Physician [facility] 03-02-2023 16:26-0400 Diastolic blood pressure 80 mm[Hg] No Primary Care Physician [facility] 03-02-2023 16:26-0400 Heart rate 74 /min No Primary Care Physician [facility] 03-02-2023 16:26-0400 Respiratory rate 16 /min No Primary Care Physician [facility] 03-02-2023 16:26-0400 SaO2% (BldA) [Mass fraction] 99 % No Primary Care Physician [facility] 03-02-2023 16:26-0400 Systolic blood pressure 118 mm[Hg] No Primary Care Physician [facility] 03-02-2023 14:00-0400 Inhaled oxygen flow rate 2 L/min No Primary Care Physician [facility] 03-02-2023 09:44-0400 Body height 160.02 cm No Primary Care Physician [facility] 03-02-2023 09:44-0400 Body mass index (BMI) [Ratio] 40 kg/m2 No Primary Care Physician [facility] 03-02-2023 09:44-0400 Body weight 102.5 kg No Primary Care Physician [facility] 02-11-2023 10:06-0400 Body mass index (BMI) [Ratio] 40.1 kg/m2 No Primary Care Physician [facility] 02-11-2023 10:06-0400 Body temperature 96.7 [degF] No Primary Care Physician [facility] 02-11-2023 10:06-0400 Body weight 102.73 kg No Primary Care Physician [facility] 02-11-2023 10:06-0400 Diastolic blood pressure 81 mm[Hg] No Primary Care Physician [facility] 02-11-2023 10:06-0400 Heart rate 81 /min No Primary Care Physician [facility] 02-11-2023 10:06-0400 Respiratory rate 17 /min No Primary Care Physician [facility] 02-11-2023 10:06-0400 SaO2% (BldA) [Mass fraction] 97 % No Primary Care Physician [facility] 02-11-2023 10:06-0400 Systolic blood pressure 120 mm[Hg] No Primary Care Physician [facility] 01-11-2023 14:46-0400 Body height 160 cm No Pcp Required [facility] 01-11-2023 14:46-0400 Body temperature 97.7 [degF] No Pcp Required [facility] 01-11-2023 14:46-0400 Diastolic blood pressure 79 mm[Hg] No Pcp Required [facility] 01-11-2023 14:46-0400 Heart rate 82 /min No Pcp Required [facility] 01-11-2023 14:46-0400 SaO2% (BldA) [Mass fraction] 98 % No Pcp Required [facility] 01-11-2023 14:46-0400 Systolic blood pressure 121 mm[Hg] No Pcp Required [facility] 10-18-2022 07:00-0400 Diastolic blood pressure 67 mm[Hg] No Pcp Required [facility] 10-18-2022 07:00-0400 Heart rate 68 /min No Pcp Required [facility] 10-18-2022 07:00-0400 Respiratory rate 16 /min No Pcp Required [facility] 10-18-2022 07:00-0400 SaO2% (BldA) [Mass fraction] 98 % No Pcp Required [facility] 10-18-2022 07:00-0400 Systolic blood pressure 104 mm[Hg] No Pcp Required [facility] 08-18-2022 09:30-0400 Body temperature 97.7 [degF] No Primary Care Physician [facility] 08-18-2022 09:30-0400 Diastolic blood pressure 53 mm[Hg] No Primary Care Physician [facility] 08-18-2022 09:30-0400 Heart rate 92 /min No Primary Care Physician [facility] 08-18-2022 09:30-0400 Respiratory rate 16 /min No Primary Care Physician [facility] 08-18-2022 09:30-0400 SaO2% (BldA) [Mass fraction] 97 % No Primary Care Physician [facility] 08-18-2022 09:30-0400 Systolic blood pressure 101 mm[Hg] No Primary Care Physician [facility] 08-16-2022 08:04-0400 Body height 160.02 cm No Primary Care Physician [facility] 08-16-2022 08:04-0400 Body mass index (BMI) [Ratio] 40.7 kg/m2 No Primary Care Physician [facility] 08-16-2022 08:04-0400 Body weight 104.32 kg No Primary Care Physician [facility] 08-10-2022 11:12-0400 Body mass index (BMI) [Ratio] 40.4 kg/m2 No Primary Care Physician [facility] 08-10-2022 11:12-0400 Body weight 103.64 kg No Primary Care Physician [facility] 08-10-2022 11:12-0400 Diastolic blood pressure 77 mm[Hg] No Primary Care Physician [facility] 08-10-2022 11:12-0400 Systolic blood pressure 116 mm[Hg] No Primary Care Physician [facility] 08-03-2022 10:01-0400 Body mass index (BMI) [Ratio] 39.9 kg/m2 No Primary Care Physician [facility] 08-03-2022 10:01-0400 Body weight 102.11 kg No Primary Care Physician [facility] 08-03-2022 10:01-0400 Diastolic blood pressure 84 mm[Hg] No Primary Care Physician [facility] 08-03-2022 10:01-0400 Systolic blood pressure 120 mm[Hg] No Primary Care Physician [facility] 07-27-2022 10:32-0400 Body height 160.02 cm No Primary Care Physician [facility] 07-27-2022 10:30-0400 Body mass index (BMI) [Ratio] 40.4 kg/m2 No Primary Care Physician [facility] 07-27-2022 10:30-0400 Body weight 103.58 kg No Primary Care Physician [facility] 07-27-2022 10:30-0400 Diastolic blood pressure 74 mm[Hg] No Primary Care Physician [facility] 07-27-2022 10:30-0400 Systolic blood pressure 126 mm[Hg] No Primary Care Physician [facility] 07-25-2022 10:53-0500 Body temperature 98.4 [degF] No Primary Care Physician [facility] 07-25-2022 10:53-0500 Diastolic blood pressure 59 mm[Hg] No Primary Care Physician [facility] 07-25-2022 10:53-0500 Heart rate 96 /min No Primary Care Physician [facility] 07-25-2022 10:53-0500 SaO2% (BldA) [Mass fraction] 97 % No Primary Care Physician [facility] 07-25-2022 10:53-0500 Systolic blood pressure 119 mm[Hg] No Primary Care Physician [facility] 07-24-2022 14:50-0500 Body height 160.02 cm No Primary Care Physician Mary [facility] 07-24-2022 14:50-0500 Body mass index (BMI) [Ratio] 41 kg/m2 No Primary Care Physician [facility] 07-24-2022 14:50-0500 Body weight 105 kg No Primary Care Physician [facility] 07-20-2022 12:11-0500 Body weight 103.87 kg No Primary Care Physician [facility] 07-20-2022 12:11-0500 Diastolic blood pressure 72 mm[Hg] No Primary Care Physician [facility] 07-20-2022 12:11-0500 Systolic blood pressure 113 mm[Hg] No Primary Care Physician [facility] 07-13-2022 10:10-0500 Body mass index (BMI) [Ratio] 40.4 kg/m2 No Primary Care Physician [facility] 07-13-2022 10:10-0500 Body weight 103.53 kg No Primary Care Physician [facility] 07-13-2022 10:10-0500 Diastolic blood pressure 78 mm[Hg] No Primary Care Physician [facility] 07-13-2022 10:10-0500 Systolic blood pressure 118 mm[Hg] No Primary Care Physician [facility] 07-06-2022 10:50-0500 Body height 160.02 cm No Primary Care Physician [facility] 07-06-2022 10:50-0500 Body mass index (BMI) [Ratio] 39.7 kg/m2 No Primary Care Physician [facility] 07-06-2022 10:50-0500 Body weight 101.83 kg No Primary Care Physician [facility] 07-06-2022 10:50-0500 Diastolic blood pressure 73 mm[Hg] No Primary Care Physician [facility] 07-06-2022 10:50-0500 Systolic blood pressure 111 mm[Hg] No Primary Care Physician [facility] 06-29-2022 08:57-0500 Body mass index (BMI) [Ratio] 39.9 kg/m2 No Primary Care Physician [facility] 06-29-2022 08:57-0500 Body weight 102.22 kg No Primary Care Physician [facility] 06-29-2022 08:57-0500 Diastolic blood pressure 66 mm[Hg] No Primary Care Physician [facility] 06-29-2022 08:57-0500 Systolic blood pressure 108 mm[Hg] No Primary Care Physician [facility] 06-22-2022 14:38-0500 Body mass index (BMI) [Ratio] 39.8 kg/m2 No Primary Care Physician [facility] 06-22-2022 14:38-0500 Body weight 102.05 kg No Primary Care Physician [facility] 06-22-2022 14:38-0500 Diastolic blood pressure 67 mm[Hg] No Primary Care Physician [facility] 06-22-2022 14:38-0500 Systolic blood pressure 112 mm[Hg] No Primary Care Physician [facility] 06-08-2022 10:46-0500 Body height 160.02 cm No Primary Care Physician [facility] 06-08-2022 10:45-0500 Body mass index (BMI) [Ratio] 39.3 kg/m2 No Primary Care Physician [facility] 06-08-2022 10:45-0500 Body weight 100.69 kg No Primary Care Physician [facility] 06-08-2022 10:45-0500 Diastolic blood pressure 70 mm[Hg] No Primary Care Physician [facility] 06-08-2022 10:45-0500 Systolic blood pressure 116 mm[Hg] No Primary Care Physician [facility] 05-27-2022 11:37-0500 Diastolic blood pressure 74 mm[Hg] No Primary Care Physician [facility] 05-27-2022 11:37-0500 Systolic blood pressure 110 mm[Hg] No Primary Care Physician [facility] 05-27-2022 11:35-0500 Body weight 99.96 kg No Primary Care Physician [facility] 05-12-2022 13:10-0500 Diastolic blood pressure 68 mm[Hg] No Primary Care Physician [facility] 05-12-2022 13:10-0500 Systolic blood pressure 128 mm[Hg] No Primary Care Physician [facility] 05-12-2022 12:57-0500 Body mass index (BMI) [Ratio] 39.2 kg/m2 No Primary Care Physician [facility] 05-12-2022 12:57-0500 Body weight 100.41 kg No Primary Care Physician [facility] 04-13-2022 14:36-0500 Body mass index (BMI) [Ratio] 38.6 kg/m2 No Primary Care Physician [facility] 04-13-2022 14:36-0500 Body weight 98.88 kg No Primary Care Physician [facility] 04-13-2022 14:36-0500 Diastolic blood pressure 76 mm[Hg] No Primary Care Physician [facility] 04-13-2022 14:36-0500 Systolic blood pressure 138 mm[Hg] No Primary Care Physician [facility] 03-31-2022 15:41-0500 Body height 160 cm Ellen Veras Other Phone: [facility] 03-31-2022 15:41-0500 Body temperature 96.98 [degF] Ellen Veras Other Phone: [facility] 03-31-2022 15:41-0500 Diastolic blood pressure 76 mm[Hg] Ellen Veras Other Phone: [facility] 03-31-2022 15:41-0500 Heart rate 88 /min Ellen Veras Other Phone: [facility] 03-31-2022 15:41-0500 Respiratory rate 16 /min Ellen Veras Other Phone: [facility] 03-31-2022 15:41-0500 SaO2% (BldA) [Mass fraction] 100 % Ellen Veras Other Phone: [facility] 03-31-2022 15:41-0500 Systolic blood pressure 122 mm[Hg] Ellen Veras Other Phone: [facility] 03-16-2022 14:23-0400 Body mass index (BMI) [Ratio] 38.5 kg/m2 No Primary Care Physician [facility] 03-16-2022 14:23-0400 Body weight 98.65 kg No Primary Care Physician [facility] 03-16-2022 14:23-0400 Diastolic blood pressure 76 mm[Hg] No Primary Care Physician [facility] 03-16-2022 14:23-0400 Systolic blood pressure 128 mm[Hg] No Primary Care Physician [facility] 02-16-2022 14:18-0400 Body mass index (BMI) [Ratio] 38.6 kg/m2 No Primary Care Physician [facility] 02-16-2022 14:18-0400 Body weight 98.88 kg No Primary Care Physician [facility] 02-16-2022 14:18-0400 Diastolic blood pressure 78 mm[Hg] No Primary Care Physician [facility] 02-16-2022 14:18-0400 Systolic blood pressure 126 mm[Hg] No Primary Care Physician [facility] 01-20-2022 14:51-0400 Body height 160.02 cm No Primary Care Physician [facility] Work Phone: 01-20-2022 14:51-0400 Body mass index (BMI) [Ratio] 38.8 kg/m2 No Primary Care Physician [facility] Work Phone: 01-20-2022 14:51-0400 Body weight 99.5 kg No Primary Care Physician [facility] Work Phone: 01-20-2022 14:51-0400 Diastolic blood pressure 82 mm[Hg] No Primary Care Physician [facility] Work Phone: 01-20-2022 14:51-0400 Systolic blood pressure 125 mm[Hg] No Primary Care Physician [facility] Work Phone: Encounters Encounter Date Encounter Type Care Provider Facility Start: 11-06-2024 ambulatory Evelyn Villa Fa cility:[facility] Start: 11-01-2024 End: 11-01-2024 ambulatory Penelope Yang Facility:[facility] Start: 11-01-2024 End: 11-01-[address] Penelope Yang MD -[facility] Work Phone: Start: 10-20-2024 End: 10-20-2024 Patient encounter procedure Cristy Abreu CNM -[facility] Work Phone: Start: 10-20-2024 End: 10-20-2024 ambulatory No Primary Care Physician [facility] Work Phone: Start: 10-04-2024 End: 10-04-2024 ambulatory No Primary Care Physician [facility] Work Phone: Start: 10-04-2024 End: 10-04-[address] Evelyn Villa DO [facility] Work Phone: Start: 10-04-2024 End: 10-04-2024 ambulatory Evelyn Villa Facility:[facility] Start: 10-02-2024 End: 10-02-[address] Evelyn Villa DO -[facility] Work Phone: Start: 10-02-2024 End: 10-02-2024 ambulatory No Primary Care Physician [facility] Work Phone: Start: 09-20-2024 End: 09-20-2024 Patient encounter procedure Gui SERNA -[facility] Work Phone: Start: 09-20-2024 End: 09-20-2024 ambulatory Gui Sloan Facility:[facility] Start: 08-21-2024 End: 08-21-[address] Penelope Yang MD -[facility] Work Phone: Start: 08-21-2024 End: 08-21-2024 ambulatory No Primary Care Physician [facility] Work Phone: Start: 08-21-2024 End: 08-21-2024 ambulatory Penelope Yang Facility:[facility] Start: 07-28-2024 End: 07-28-2024 Patient encounter procedure Rina Mead CN -[facility] Work Phone: Start: 07-28-2024 End: 07-28-2024 ambulatory No Primary Care Physician Facility:[facility] Start: 07-17-2024 End: 07-17-2024 ambulatory KURT LILLY [facility] Start: 07-06-2024 End: 07-06-2024 ambulatory CRYSTAL ORTIZ [facility] Start: 06-26-2024 End: 06-26-2024 Patient encounter procedure Cristy FRANCISCO -[facility] Work Phone: Start: 06-26-2024 End: 06-26-2024 ambulatory No Primary Care Physician Facility:[facility] Start: 06-17-2024 End: 06-17-2024 ambulatory HECTOR WINCHESTER Facility:[facility] Start: 06-17-2024 End: 06-17-2024 Telemedicine consultation with patient Julia De Santiagosyeda SALINAS Work Phone: Telemedicine Comment on above: Acute cough (Primary Dx); Acute URI; Sinus drainage; PND (post-nasal drip); 16 weeks gestation of Start: 05-24-2024 End: 05-24-2024 Patient encounter procedure Gui SERNA -[facility] Work Phone: Start: 05-24-2024 End: 05-24-2024 ambulatory No Primary Care Physician Facility:[facility] Start: 04-24-2024 End: 04-24-2024 ambulatory No Primary Care Physician Facility:[facility] Start: 04-24-2024 End: 04-24-2024 ambulatory No Primary Care Physician Facility:[facility] Start: 03-17-2024 End: 03-17-2024 Patient encounter procedure Hector Winchester APRN.DISASTER RECOVERY COORDINATOR Work Phone: [facility] Comment on above: MADDIE (generalized anx iety disorder) (Primary Dx); Tremor; Screening for lipid disorders; Psoriasis of scalp Start: 03-17-2024 End: 03-17-2024 ambulatory HECTOR WINCHESTER Facility:[facility] Start: 02-16-2024 End: 02-16-2024 Telephone encounter Hector Winchester APRN.DISASTER RECOVERY COORDINATOR Work Phone: [facility] Comment on above: Results Start: 02-15-2024 End: 02-15-2024 ambulatory HECTOR WINCHESTER Facility:[facility] Start: 01-11-2024 End: 01-11-2024 ambulatory Hector Winchester CURTAIN ROLLER ASSEMBLER.DISASTER RECOVERY COORDINATOR Work Phone: [facility] Comment on above: Medication Start: 01-04-2024 End: 01-04-2024 Patient encounter procedure Hector Winchester APRN.DISASTER RECOVERY COORDINATOR Work Phone: [facility] Comment on above: MADDIE (generalized anx iety disorder) (Primary Dx); Urinary frequency; Incomplete bladder emptying; Acute pain of left knee Start: 01-04-2024 End: 01-04-2024 ambulatory HECTOR WINCHESTER Facility:[facility] Start: 10-22-2023 End: 10-22-2023 Patient encounter procedure Caitlin Mehta APRN-DISASTER RECOVERY COORDINATOR Work Phone: [facility] Comment on above: Acute laryngitis (Pr imary Dx); Acute sinusitis, recurrence not specified, unspecified location Start: 10-22-2023 End: 10-22-2023 ambulatory [facility] Start: 03-12-2023 End: 03-12-2023 Emergency department patient visit No Primary Care Physician [facility] Work Phone: Start: 03-02-2023 Non-patient / Non-visit No Clotilde bauman Care Physician [facility] Start: 03-02-2023 End: 03-02-2023 Admission to same day surgery center No Primary Care Physician [facility] Start: 03-02-2023 End: 03-02-2023 ambulatory No Primary Care Physician [facility] Work Phone: Start: 02-11-2023 End: 02-11-2023 Patient encounter procedure No Primary Care Physician [facility] Work Phone: Start: 01-11-2023 End: 01-11-2023 Emergency department patient visit Ismael Davenport [facility] Start: 10-18-2022 End: 10-18-2022 Emergency department patient visit Anakirsty Shabazz [facility] Emergency 15 Start: 08-18-2022 Non-patient / Non-visit No Clotilde bauman Care Physician [facility] Start: 08-17-2022 Non-patient / Non-visit No Clotilde bauman Care Physician [facility] Start: 08-16-2022 Non-patient / Non-visit No Clotilde bauman Care Physician [facility] Start: 08-16-2022 End: 08-18-2022 Evaluation and management of inpatient No Primary Care Physician [facility] Start: 08-10-2022 End: 08-10-2022 Patient encounter procedure No Primary Care Physician [facility] Start: 08-03-2022 End: 08-03-2022 Patient encounter procedure No Primary Care Physician [facility] Start: 07-27-2022 End: 07-28-2022 Evaluation and management of inpatient No Primary Care Physician [facility] Start: 07-27-2022 End: 07-28-2022 observation encounter No Primary Care Physician [facility] Work Phone: Start: 07-27-2022 End: 07-27-2022 Patient encounter procedure No Primary Care Physician [facility] Start: 07-24-2022 Non-patient / Non-visit No [facility] mitul Care Physician [facility] Start: 07-24-2022 End: 07-25-2022 Evaluation and management of inpatient No Primary Care Physician [facility] Start: 07-24-2022 End: 07-25-2022 observation encounter No Primary Care Physician [facility] Work Phone: Start: 07-24-2022 End: 07-25-2022 ambulatory No Primary Care Physician [facility] Work Phone: Start: 07-24-2022 End: 07-25-2022 Patient encounter procedure No Primary Care Physician [facility] Outpatients Start: 07-20-2022 End: 07-20-2022 Patient encounter procedure No Primary Care Physician [facility] Start: 07-13-2022 End: 07-13-2022 Patient encounter procedure No Primary Care Physician [facility] Start: 07-06-2022 End: 07-06-2022 Patient encounter procedure No Primary Care Physician [facility] Start: 06-29-2022 End: 06-29-2022 ambulatory No Primary Care Physician [facility] Work Phone: Start: 06-29-2022 End: 06-29-2022 Patient encounter procedure No Primary Care Physician [facility] Start: 06-22-2022 End: 06-22-2022 Patient encounter procedure No Primary Care Physician [facility] Start: 06-08-2022 End: 06-08-2022 Patient encounter procedure No Primary Care Physician [facility] Start: 05-27-2022 End: 05-27-2022 Patient encounter procedure No Primary Care Physician [facility] Start: 05-25-2022 End: 05-25-2022 ambulatory No Primary Care Physician [facility] Work Phone: Start: 05-25-2022 End: 05-25-2022 Patient encounter procedure No Primary Care Physician [facility] Start: 05-12-2022 End: 05-12-2022 Patient encounter procedure No Primary Care Physician [facility] Start: 04-13-2022 End: 04-13-2022 Patient encounter procedure No Primary Care Physician [facility] Start: 03-31-2022 End: 03-31-2022 Emergency department patient visit Ismael Davenport [facility] Start: 03-16-2022 End: 03-16-2022 Patient encounter procedure No Primary Care Physician [facility] Start: 02-16-2022 End: 02-16-2022 Patient encounter procedure No Primary Care Physician [facility] Start: 01-29-2022 End: 01-29-2022 ambulatory No Primary Care Physician [facility] Work Phone: Start: 01-29-2022 End: 01-29-2022 Patient encounter procedure No Primary Care Physician [facility] Start: 01-20-2022 End: 01-20-2022 ambulatory No Primary Care Physician [facility] Work Phone: Start: 01-20-2022 End: 01-20-2022 Patient encounter procedure No Primary Care Physician [facility], Specimen Start: 01-20-2022 End: 01-20-2022 Patient encounter procedure No Primary Care Physician [facility] Start: 07-05-2020 Patient encounter procedure Yunior Santino [facility] [address] Work Phone: Start: 06-14-2020 Patient encounter procedure Yunior Marlboro [facility] [address] Work Phone: Start: 09-08-2018 End: 09-09-2018 Patient encounter procedure [facility] Facility:[facility] Start: 08-04-2018 End: 08-05-2018 Patient encounter procedure Parminder Winter Facility:[facility] Start: 07-25-2018 End: 07-26-2018 Patient encounter procedure Parminder Winter Facility:[facility] Start: 07-25-2018 End: 07-26-2018 Patient encounter procedure Parminder Winter Facility:[facility] Start: 07-14-2018 End: 07-14-2018 Patient encounter procedure Emir Youssef Facility:[facility] Start: 02-10-2018 End: 02-11-2018 Patient encounter procedure Emir Youssef Facility:[facility] Start: 02-10-2018 End: 02-11-2018 Patient encounter procedure [facility] Start: 11-16-2017 End: 11-16-2017 Emergency department patient visit PARMINDER WINTER Facility:[facility] Start: 10-05-2017 End: 10-05-2017 Patient encounter procedure Londarren Acosta Facility:[facility] Start: 09-21-2017 End: 09-21-2017 Patient encounter procedure Parminder Winter Facility:[facility] Start: 04-17-2017 End: 04-18-2017 Emergency department patient visit PARMINDER WINTER Facility:[facility] Procedures Date Procedure Procedure Detail Performing Clinician Start: 10-04-2024 Ultrasound scan for growth No Primary Care Physician Start: 08-21-2024 Serologic test for syphilis No Primary Care Physician Start: 03-12-2023 Computed tomography of abdomen and pelvis with intravenous contrast No Primary Care Physician Start: 03-02-2023 Total cholecystectom y and exploration of common bile duct No Primary Care Physician Start: 03-02-2023 Cholangiogram No Primar y Care Physician Start: 03-02-2023 Fluoroscopic guidance N o Primary Care Physician Start: 07-25-2022 Ultrasonography of abdomen No Primary Care Physician Start: 07-24-2022 US urinary tract No Clotilde mitul Care Physician Start: 07-05-2020 Assay of hydroxyprog esterone 17-d Yunior Mercado Group B Streptococcus Culture No Primary Care Physician History of cholecystectomy S/P cholecyste ctomy No Primary Care Physician Comment on above: laparoscopic 02/2023 Tonsillectomy Yunior Mercado Urine culture No Primary Car e Physician Urine culture No Primary Car e Physician Plan of Treatment Date Care Activity Detail Author Start: 11-09-2045 Zoster Vaccines (1 of 2) Zoste r Vaccines (1 of 2) [facility] Start: 03-17-2025 Covid-19 Vaccine ( season) Covid-19 Vaccine ( season) [facility] Comment on above: Postponed from 01/15 (Declined at this time) Start: 03-17-2025 HPV Vaccine (2 - 3-d ose series) HPV Vaccine (2 - 3-dose series) [facility] Comment on above: Postponed from 12/19 (Declined at this time) Start: 11-21-2024 DTaP/Tdap/Td Vaccine s (8 - Td or Tdap) DTaP/Tdap/Td Vaccines (8 - Td or Tdap) [facility] Start: 11-21-2024 Urine microalbumin profile DTa P,Tdap,Td Vaccine (8 - Td or Tdap) [facility] Start: 11-13-2024 Influenza vaccination Influenza Vacc ine (#1) [facility] Comment on above: Postponed from 01/15 (Declined at this time) Start: 06-19-2024 End: 06-19-2024 Patient encounter procedure 06/19/2024 11:00 AM EST Office Visit [facility] [address] [place] [address] Hector Winchester APRN.DISASTER RECOVERY COORDINATOR [address] [place] [address] 3 MTH F/U Anxiety [facility] Comment on above: 3 MTH F/U Anxiety Start: 03-17-2024 End: 10-13-2024 CBC panel - Blood by Automated count COMPLETE BLOOD COUNT Lab Routine Tremor Expected: 03/17/2024, Expires: 10/13/2024 [facility] Work Phone: Comment on above: Expected: 03/17/2024 , Expires: 10/13/2024 Start: 03-17-2024 End: 10-13-2024 Cobalamin (Vitamin B12) [Mass/volume] in Serum or Plasma VITAMIN B12 Lab Routine Tremor Expected: 03/17/2024, Expires: 10/13/2024 [facility] Comment on above: Expected: 03/17/2024 , Expires: 10/13/2024 Start: 03-17-2024 End: 10-13-2024 Comprehensive metabolic 2000 panel - Serum or Plasma COMPREHENSIVE METABOLIC PANEL Lab Routine Tremor Expected: 03/17/2024, Expires: 10/13/2024 [facility] Comment on above: Expected: 03/17/2024 , Expires: 10/13/2024 Start: 03-17-2024 End: 10-13-2024 Lipid 1996 panel - Serum or Plasma LIPID PANEL BASIC Lab Routine Screening for lipid disorders Expected: 03/17/2024, Expires: 10/13/2024 [facility] Comment on above: Expected: 03/17/2024 , Expires: 10/13/2024 Start: 03-17-2024 End: 10-13-2024 Thyrotropin [Units/volume] in Serum or Plasma THYROID STIMULATING HORMONE Lab Routine Tremor Expected: 03/17/2024, Expires: 10/13/2024 [facility] Comment on above: Expected: 03/17/2024 , Expires: 10/13/2024 Start: 03-17-2024 End: 03-17-2024 Patient encounter procedure Urology Comment on above: OAB 6 week follow up anx iety Start: 02-15-2024 End: 02-15-2024 Patient encounter procedure 02/15/2024 1:00 PM EDT Office Visit [facility] [address] [place] [address] Hector Winchester, CURTAIN ROLLER ASSEMBLER.DISASTER RECOVERY COORDINATOR [address] [place] [address] 6 week follow up anxiety [facility] Comment on above: 6 week follow up anx iety Start: 01-16-2024 Covid-19 Vaccine ( season) Covid-19 Vaccine ( season) [facility] Start: 01-16-2024 Influenza vaccination [facility] Start: 01-04-2024 End: 04-04-2024 Urinalysis complete panel - Urine URINALYSIS, WITH MICROSCOPIC Lab Routine Urinary frequency Incomplete bladder emptying Expected: 01/04/2024, Expires: 04/04/2024 [facility] Work Phone: Comment on above: Expected: 01/04/2024 , Expires: 04/04/2024 Start: 03-12-2023 [facility] Start: 03-02-2023 Anes intraperitoneal upper abdomen w/laps nos ANESTH SURG UPPER ABDOMEN [facility] Start: 03-02-2023 Laps surg cholecyste ctomy w/cholangiography LAPARO CHOLECYSTECTOMY/GRAPH [facility] Start: 03-02-2023 Patient discharge [facility] Start: 03-02-2023 Cholangiogram Cholangiogram/ O R,Initial [facility] Start: 03-02-2023 XR Biliary ducts and Gallbladder Views W contrast IV [facility] Start: 01-15-2023 COVID-19 Vaccine () COVID-19 Vaccine () [facility] Start: 08-18-2022 Patient discharge [facility] Start: 08-16-2022 Administration of medication [facility] Start: 08-16-2022 Application of ice c ollar, cap or bag [facility] Start: 08-16-2022 Catheterization of vein [facility] Start: 08-16-2022 Introduction of urin latonya catheter [facility] Start: 08-16-2022 Measuring intake and output [facility] Start: 08-16-2022 Notification of physician [facility] Start: 08-16-2022 Procedure discontinued [facility] Start: 08-16-2022 Provision of activit y privileges [facility] Start: 08-16-2022 Vital signs measurements [facility] Start: 08-16-2022 [facility] Start: 08-16-2022 Admission procedure [facility] Start: 07-25-2022 Patient discharge [facility] Start: 07-25-2022 Patient referral to dietitian [facility] Start: 07-24-2022 Nonstress test [facility] Start: 07-24-2022 Obstetric monitoring [facility] Start: 07-24-2022 Vital signs measurements [facility] Start: 07-24-2022 Admission procedure [facility] Start: 07-24-2022 End: 07-24-2022 [facility] Start: 07-24-2022 Iv infusion hydratio n each additional hour HYDRATE IV INFUSION ADD-ON [facility] Start: 07-24-2022 Iv infusion ther pro ph addl sequential to 1 hr TX/PROPH/DG ADDL SEQ IV INF [facility] Start: 07-24-2022 Iv infusion therapy/prophylaxis /dx 1st to 1 hr THER/PROPH/DIAG IV INF INIT [facility] Start: 07-24-2022 Therapeutic injectio n iv push each new drug TX/PRO/DX INJ NEW DRUG ADDON [facility] Start: 01-20-2022 Chlamydia deoxyribon ucleic acid detection [facility] Work Phone: Start: 01-20-2022 Liquid based cervica l cytology screening [facility] Work Phone: Start: 11-09-2016 Screening for malign ant neoplasm of cervix [facility] Start: 12-19-2014 HPV Vaccine (2 - 3-d ose series) HPV Vaccine (2 - 3-dose series) [facility] Start: 12-19-2014 HPV Vaccines (2 - 3- dose series) HPV Vaccines (2 - 3-dose series) [facility] Start: 11-09-2013 Depression Screening Depression Scre ening [facility] Start: 11-09-2013 Hepatitis C screening Hepatitis C [facility] Start: 11-09-2013 HIV screening HIV Screening [facility] Start: 1995 HIV screening HIV Screening [facility] Start: 1995 Lipid panel Lipid Panel [facility] Start: 1995 Yearly Adult Physical Yearly Adult P [facility] Bacteria identified in Urine by Culture [facility] Bacteria identified in Urine by Culture Urine Culture [facility] Beta-hemolytic Streptococcus culture [facility] CBC W Auto Different ial panel - Blood [facility] Work Phone: Glucose [Mass/volume ] in Serum or Plasma --1 hour post 50 g glucose PO [facility] Work Phone: Group B Streptococcu s Culture Group B Streptococcus Culture [facility] Hepatitis B surface antigen measurement [facility] Work Phone: Hepatitis C antibody measurement [facility] Work Phone: HIV 1+2 Ab+HIV1 p24 Ag [Presence] in Serum or Plasma by Immunoassay [facility] Work Phone: Neisseria gonorrhoea e rRNA [Presence] in Unspecified specimen by ABBY with probe detection [facility] Work Phone: Path report.final Dx Spec [facility] Work Phone: Patient Education [facility] Work Phone: Patient referral [facility] Work Phone: PCR test for Chlamyd ia trachomatis [facility] Work Phone: Rubella IgG measurement [facility] Work Phone: Streptococcus agalac tiae [Presence] in Unspecified specimen by Organism specific culture [facility] Treponema sp Ab [Pre sence] in Serum [facility] Work Phone: Ultrasound scan for growth [facility] End: 02-02-2025 XR Knee - left AP and Lateral and oblique XR KNEE INJURY 4V AP/LAT/OBLS LEFT Radiology Routine Acute pain of left knee 1 Occurrences starting 01/04/2024 until 02/02/2025 [facility] Comment on above: 1 Occurrences starti ng 01/04/2024 until 02/02/2025 [facility] Immunizations Immunization Date Immunization Notes Care Provider Sadia kinney 11-21-2014 hepatitis A vaccine, pediatric/adolescent dosage, 2 dose schedule Hector Winchester APRN.DISASTER RECOVERY COORDINATOR Work Phone: [facility] 11-21-2014 human papilloma viru s vaccine, quadrivalent Hector Winchester APRN.CNP Work Phone: [facility] 11-21-2014 meningococcal polysaccharide (groups A, C, Y and W-135) diphtheria toxoid conjugate vaccine (MCV4P) Hector Trill CURTAIN ROLLER ASSEMBLER.DISASTER RECOVERY COORDINATOR Work Phone: [facility] 11-21-2014 tetanus toxoid, redu lluvia diphtheria toxoid, and acellular pertussis vaccine, adsorbed Hector Trill CURTAIN ROLLER ASSEMBLER.DISASTER RECOVERY COORDINATOR Work Phone: [facility] 11-21-2014 HPV, unspecified formulation Caitlin Paulata CURTAIN ROLLER ASSEMBLER-DISASTER RECOVERY COORDINATOR Work Phone: [facility] Work Phone: 12-19-2008 meningococcal ACWY vaccine, unspecified formulation Hector Trill CURTAIN ROLLER ASSEMBLER.DISASTER RECOVERY COORDINATOR Work Phone: [facility] 12-19-2008 tetanus toxoid, redu lluvia diphtheria toxoid, and acellular pertussis vaccine, adsorbed Hector Trill CURTAIN ROLLER ASSEMBLER.DISASTER RECOVERY COORDINATOR Work Phone: [facility] 12-19-2008 varicella virus vaccine Raguh tin Trill CURTAIN ROLLER ASSEMBLER.DISASTER RECOVERY COORDINATOR Work Phone: [facility] 2000 diphtheria, tetanus toxoids and acellular pertussis vaccine, unspecified formulation Hector Trill CURTAIN ROLLER ASSEMBLER.DISASTER RECOVERY COORDINATOR Work Phone: [facility] 2000 poliovirus vaccine, unspecified formulation Hector Trill CURTAIN ROLLER ASSEMBLER.DISASTER RECOVERY COORDINATOR Work Phone: [facility] 12-24-1998 measles, mumps and rubella virus vaccine Hector Trill CURTAIN ROLLER ASSEMBLER.DISASTER RECOVERY COORDINATOR Work Phone: [facility] 05-14-1997 diphtheria, tetanus toxoids and acellular pertussis vaccine, unspecified formulation Hector Trill CURTAIN ROLLER ASSEMBLER.DISASTER RECOVERY COORDINATOR Work Phone: [facility] 11-14-1996 haemophilus influenz ae type b vaccine, conjugate unspecified formulation Hector Trill CURTAIN ROLLER ASSEMBLER.DISASTER RECOVERY COORDINATOR Work Phone: [facility] 11-14-1996 measles, mumps and rubella virus vaccine Hector Trill CURTAIN ROLLER ASSEMBLER.DISASTER RECOVERY COORDINATOR Work Phone: [facility] 11-14-1996 varicella virus vaccine Raghu tin Trill CURTAIN ROLLER ASSEMBLER.DISASTER RECOVERY COORDINATOR Work Phone: [facility] 08-04-1996 hepatitis B vaccine, pediatric or pediatric/adolescent dosage Hector Trill CURTAIN ROLLER ASSEMBLER.DISASTER RECOVERY COORDINATOR Work Phone: [facility] 05-12-1996 diphtheria, tetanus toxoids and acellular pertussis vaccine, unspecified formulation Hector Trill CURTAIN ROLLER ASSEMBLER.DISASTER RECOVERY COORDINATOR Work Phone: [facility] 05-12-1996 haemophilus influenz ae type b vaccine, conjugate unspecified formulation Hector Trill CURTAIN ROLLER ASSEMBLER.DISASTER RECOVERY COORDINATOR Work Phone: [facility] 05-12-1996 poliovirus vaccine, unspecified formulation Hector Trill CURTAIN ROLLER ASSEMBLER.[facility] Work Phone: [facility] 03-14-1996 diphtheria, tetanus toxoids and acellular pertussis vaccine, unspecified formulation Hector Trill CURTAIN ROLLER ASSEMBLER.[facility] Work Phone: [facility] 03-14-1996 haemophilus influenz ae type b vaccine, conjugate unspecified formulation Hector Trill CURTAIN ROLLER ASSEMBLER.DISASTER RECOVERY COORDINATOR Work Phone: [facility] 03-14-1996 poliovirus vaccine, unspecified formulation Hector Trill CURTAIN ROLLER ASSEMBLER.[facility] Work Phone: [facility] 01-11-1996 diphtheria, tetanus toxoids and acellular pertussis vaccine, unspecified formulation Hector Trill CURTAIN ROLLER ASSEMBLER.DISASTER RECOVERY COORDINATOR Work Phone: [facility] 01-11-1996 haemophilus influenz ae type b vaccine, conjugate unspecified formulation Hector Trill CURTAIN ROLLER ASSEMBLER.DISASTER RECOVERY COORDINATOR Work Phone: [facility] 01-11-1996 poliovirus vaccine, unspecified formulation Hector Trill CURTAIN ROLLER ASSEMBLER.DISASTER RECOVERY COORDINATOR Work Phone: [facility] 1995 hepatitis B vaccine, pediatric or pediatric/adolescent dosage Hector Trill CURTAIN ROLLER ASSEMBLER.DISASTER RECOVERY COORDINATOR Work Phone: [facility] 1995 hepatitis B vaccine, pediatric or pediatric/adolescent dosage Hector Trill CURTAIN ROLLER ASSEMBLER.[facility] Work Phone: [facility] Payers Date Payer Category Payer Self-pay 2022 Medicaid [facility] MEDICAID [id number] 2022-Present [phone] [address] [place] [address] Medicaid [id number] 2022 Medicaid [id number] 2017 Unknown 1995 Unknown [id number] [id number]5 1995 Unknown [id number] 2.16.840.1.180668.3.579.2. 1995 Unknown [id number] 2.16.840.1.273212.3.579.2. 1995 Unknown [id number] 2.16.840.1.594922.3.579.2. 1995 Unknown [id number] 2.16.840.1.679237.3.579.2. 1995 Unknown [id number] 2.16.840.1.852553.3.579.2. 1995 Unknown [id number] 2.16.840.1.566648.3.579.2. 1995 Unknown [id number] 2.16.840.1.783460.3.579.2. 1995 Unknown [id number] 2.16.840.1.895994.3.579.2. 1995 Unknown [id number] 2.16.840.1.632075.3.579.2. 1995 Unknown [id number] 2.16.840.1.429243.3.579.2.1068 1995 Unknown [id number] 2.16.840.1.834093.3.579.2.1068 1995 Unknown [id number] 2.16.840.1.826675.3.579.2.1243 1995 Unknown [id number] 2.16.840.1.733238.3.579.2.479 1995 Unknown [id number] 2.16.840.1.981864.3.579.2.479 Unknown [id number] Unknown [id number] 2.16840.1.939572.3.579.2.462 Unknown [id number] 2.16840.1.228129.3.579.2.462 Unknown [id number] 2.16840.1.952084.3.579.2.462 Unknown [id number] 2.16840.1.534094.3.579.2.462 Unknown [id number] 2.840.1.714013.3.579.2.462 Unknown [id number] 2.840.1.665730.3.579.2.462 Unknown [id number] 2.16840.1.658312.3.579.2.462 Unknown [id number] 2.16840.1.089166.3.579.2.462 Unknown [id number] 2.16840.1.007694.3.579.2.462 Unknown [id number] 2.840.1.274774.3.579.2.462 Unknown [id number] 2.840.1.761036.3.579.2.462 Unknown [id number] 2.840.1.175143.3.579.2.462 Unknown [id number] 2.840.1.630360.3.579.2.462 Social History Date Type Detail Facility Start: 01-20-2022 End: 03-12-2023 Tobacco smoking status OKIS Unknown if ever smoked [facility] Start: 1995 Sex Assigned At Female W [facility] Start: 10-22-2023 End: 04-18-2024 Tobacco smoking status NHIS Never smoked tobacco [facility] Work Phone: Start: 10-22-2023 End: 01-04-2024 Tobacco use and exposure Smokeless tobacco non-user [facility] Work Phone: Start: 10-22-2023 End: 02-15-2024 History of Social function [facility] Work Phone: Start: 10-22-2023 End: 02-15-2024 Tobacco use panel [facility] Work Phone: Start: 1995 Sex assigned at Not on file [facility] Work Phone: Start: 10-12-2023 End: 10-22-2023 Exposure to SARS-CoV-2 (event) Not sure [facility] Start: 01-04-2024 End: 03-17-2024 Alcoholic beverage intake Current drinker of alcohol (finding) [facility] Adult Depression Screening Assessment 0 [facility] Start: 01-04-2024 Alcohol Comment maybe twice a year [facility] Start: 08-24-2024 Sex Female (finding) [facility] NEGATED: Highlighted row - - [facility] [address] Work Phone: NEGATED: Highlighted row [facility] Medical Equipment Procedure Code Equipment Code Equipment Original Text Equipment Identifier Dates Total cholecystectomy with exploration of common bile duct CLIP,MOUSTAPHA PEREZ FDA Start: 03-02-2023 Total cholecystectomy with exploration of common bile duct CLIP,MOUSTAPHA PEREZ FDA Start: 03-02-2023 Total cholecystectomy with exploration of common bile duct CLIP,MOUSTAPHA PEREZ FDA Start: 03-02-2023 Total cholecystectomy with exploration of common bile duct CLIP,MOUSTAPHA PEREZ FDA Start: 03-02-2023 Total cholecystectomy with exploration of common bile duct CLIP,HEMDONALD PEREZ FDA Start: 03-02-2023 Total cholecystectomy with exploration of common bile duct CLIP,MOUSTAPHA PEREZ FDA Start: 03-02-2023 Total cholecystectomy with exploration of common bile duct CLIP,HEMDONALD PEREZ FDA Start: 03-02-2023 Total cholecystectomy with exploration of common bile duct CLIP,HEMDONALD ABERNATHY WEISHAN FDA Start: 03-02-2023 Total cholecystectomy with exploration of common bile duct CLIP,HEMYANACK MED WEISHAN FDA Start: 03-02-2023 Total cholecystectomy with exploration of common bile duct CLIP,HEMDONALD PEREZ FDA Start: 03-02-2023 Total cholecystectomy with exploration of common bile duct CLIP,HEMDONALD PEREZ FDA Start: 03-02-2023 Total cholecystectomy with exploration of common bile duct CLIP,HEMDONALD PEREZ FDA Start: 03-02-2023 Goals Date Patient Goal Desired Activity /State Functional Status Date Assessment Result Facility NEGATED: Highlighted row Functional performance Functional status health issues are not documented Disease [facility] Work Phone: Mental Status Date Assessment Result Facility 03-02-2023 Cognitive function Touch/Shaking [facility] Work Phone: 03-02-2023 Cognitive function Patient Orien tation Person;Place;Time [facility] Work Phone: NEGATED: Highlighted row Cognitive function [Interpretation] Cognitive status health issues are not documented Disease [facility] Work Phone: Clinical Notes 01-20-2022 to 10-20-2024 Note Date & Type Note Facility 10-20-[address] [facility] 10-05-2024 Radiology Diagnostic study note [facility] Imaging Services [address] [place], [place] [address] OB Limited With Biometrics MR#: [id number] Acct: [id number] Name: CLAUDIA FARFAN MARLENE Rep #: [id number] : 1995 F 28 From: Jeet Mansfield MD PCP: Care Physician,No Primary Status: REG CLI Study:OB Limited With Biometrics Date of Exam : 10/04/24 Exam# [id number] Ordering Dr: Evelyn Stern DO PROCEDURE: OB LIMITED WITH BIOMETRICS 10/04/2024 REASON FOR EXAM: GROWTH TECHNIQUE: High resolution obstetric ultrasound performed using a 2D transducer. Standard views obtained, including biometry FINDINGS Transabdominal imaging Single live intrauterine with heart tones 157 beats per minute. Presentation is cephalic. Cervical length 3.2 cm and appears closed. DAVION 11.9 cm. Maximum vertical pocket 4.2 cm. Grade 1 posterior placenta appears within limits. Not low-lying. DIMENSIONS: Biparietal Diameter: 7.49 cm/30 weeks 0 days, 3.39% Head Circumference: 30.08 cm/33 weeks 3 days, 50% Abdominal Circumference: 28.85 cm/32 weeks 6 days, 74% Femur Length: 5.68 cm/29 weeks 6 days, 2.41% FL/BPD 76%, FL/HC 19%, HC/AC 1.04 FL/AC 20%, (20.00-24.00 32 weeks 0 day) CI 70%, (7.00-86.00, 32 weeks 0 day) ESTIMATED WEIGHT: 1799 g +/-270 g ESTIMATED WEIGHT PERCENTILE (24+ weeks): 28% Estimated age by current ultrasound 32 weeks 1 day, THOMAS 11/28/2024 age by LMP 32 weeks 0 days, THOMAS 11/29/2024 US/OB Limited With Biometrics IMPRESSION: Single live intrauterine with biometrics as above. FL/AC 20%, (20.00-24.00 32 weeks 0 day) CI 70%, (7.00-86.00, 32 weeks 0 day) Reading Location: [id number] CC: Dr. Evelyn Villa DO; No Primary Care Physician ~ [employer] Architect: Signed [facility] 10-02-[address] [facility] 07-28-2024 Evaluation note Diagnosis Onset Date Resolution Anxiety acute July 28 8:33am Heart murmur acute July 28, 2024 8:33am acute July 28 8:33am Supervision of high-risk acute July 28, 2024 8:33am Anxiety acute August 21 8:28am Heart murmur acute August 21, 025 8:28am Obesity affecting acute August 21, 2024 8:28am acute August 21 8:28am Supervision of high-risk acute August 21 8:28am Anxiety acute September 20, 2024 9:55am Heart murmur acute September 20 9:55am Obesity affecting acute September 20, 2024 9: 55am acute September 20, 2024 9:55am Supervision of high-risk acute September 20 9:55am Anxiety acute October 02, 2024 8:55am Heart murmur acute October 02 8:55am Obesity affecting acute October 02, 2024 8 :55am acute October 02, 2024 8:55am Supervision of high-risk acute October 02 8:55am Anxiety acute October 20, 2024 8:54am Heart murmur acute October 20 8:54am Large for gestational age fetus affecting management of mother acute October 20 8:54am Obesity affecting acute October 20, 2024 8 :54am acute October 20, 2024 8:54am Supervision of high-risk acute October 20 8:54am Anxiety acute November 01 10:23am Heart murmur acute November 01 10:23am Large for gestational age fetus affecting management of mother acute November 01, 2024 10:23am Obesity affecting acute November 01, 2024 10:23am acute November 01 10:23am Supervision of high-risk acute November 01 10:23am [facility] Work Phone: 1(487) 819-529902-10-2025 Evaluation note* Diagnosis Onset Date Resolution Status Admit Date Anxiety acute June 26, 2024 9:29am Heart murmur acute June 9:29am acute June 26, 2024 9:29am Supervision of high-risk acute June 26 9:29am Anxiety acute July 28 8:33am Heart murmur acute July 28, 2024 8:33am acute July 28 8:33am Supervision of high-risk acute July 28, 2024 8:33am Anxiety acute August 21 8:28am Heart murmur acute August 21, 025 8:28am Obesity affecting acute August 21, 2024 8:28am acute August 21 8:28am Supervision of high-risk acute August 21, 2024 8:28am Anxiety acute September 20, 2024 9:55am Heart murmur acute September 20 9:55am Obesity affecting acute September 20, 2024 9:55am acute September 20, 2024 9:55am Supervision of high-risk acute September 20, 2024 9: 55am Anxiety acute October 02, 2024 8:55am Heart murmur acute October 02 8:55am Obesity affecting acute October 02, 2024 8:55am acute October 02, 2024 8:55am Supervision of high-risk acute October 02, 2024 8 :55am [facility] Work Phone: 1(270) 325-731402-10-2025 Evaluation note* Diagnosis Onset Date Resolution Status Admit Date Anxiety acute June 26, 2024 9:29am Heart murmur acute June 9:29am acute June 26, 2024 9:29am Supervision of high-risk acute June 26 9:29am Anxiety acute July 28 8:33am Heart murmur acute July 28, 2024 8:33am acute July 28 8:33am Supervision of high-risk acute July 28, 2024 8:33am Anxiety acute August 21 8:28am Heart murmur acute August 21 8:28am Obesity affecting acute August 21, 2024 8:28am acute August 21 8:28am Supervision of high-risk acute August 21, 2024 8:28am Anxiety acute September 20, 2024 9:55am Heart murmur acute September 20 9:55am Obesity affecting acute September 20, 2024 9:55am acute September 20, 2024 9:55am Supervision of high-risk acute September 20, 2024 9: 55am Anxiety acute October 02, 2024 8:55am Heart murmur acute October 02 8:55am Obesity affecting acute October 02, 2024 8:55am acute October 02, 2024 8:55am Supervision of high-risk acute October 02, 2024 8 :55am Anxiety acute October 20, 2024 8:54am Heart murmur acute October 20 8:54am Large for gestational age fetus affecting management of mother acute October 20, 2024 8 :54am Obesity affecting acute October 20, 2024 8:54am acute October 20, 2024 8:54am Supervision of high-risk acute October 20, 2024 8 :54am [facility] [employer] Work Phone: 1(505) 405-134902-01-2025 Instructions* Patient Instructions* Julia Browne APRN.DISASTER RECOVERY COORDINATOR - 06/17/2024 12:03 PM EST Images from the original note were not included. UPPER RESPIRATORY INFECTIONS Most cases are caused by viruses and most cases are mild, temporary, and harmless. Symptoms can last 2 to 3 weeks and can include: nasal congestion, sore throat, coughing, muscles aches, headaches, nausea, diarrhea, fatigue and fever. Now that you have been examined, if you are not feeling better within 2-3 weeks, please call back. In the meantime, please: 1. Drink plenty of fluids. 2. Get lots of rest. 3. Avoid dehydrants such as caffeine and alcohol. 4. Nasal saline is an effective decongestant and be used frequently throughout the day. 5. To loosen phlegm and help coughing, drink plenty of fluids and using a humidifier. 6. For sore throats, it is ok to use cough drops, throat sprays, or gargling warm salt water. 7. Always cover your mouth when you cough or sneeze, and wash your hands frequently. Avoid crowded areas like shopping centers, movies while you are sick so you don't fiber picker a different virus, or infect others. 8. Avoid exposure to cigarettes or fumes. 9. Avoid irritants such as potpourri, dust, perfumes, scented candles and scented sprays 10. Air conditioning is an effective allergen and irritant avoidance strategy in the spring, summerand fall. 11. Honey is an effective cough suppressant. Try one tsp two to three times per day. The below information is from prescribersletter.YOOSE: Antibiotics Will rarely help an upper respiratory infections. Antibiotics lead to more resistant infections that are harder to treat. There is little to no benefit to taking antibiotics for most acute upper respiratory tract infections. Instructions to spray medicated nose sprays (please note the best time to use Flonase, Nasonex, Rhinocort or similar is at night before bed). 1. Blow your nose out before spraying 2. Shake it before spraying each time. 3. Keep head in neutral position or looking down slightly. 4. Put about a quarter of the tip of the bottle in the right nostril and aim at the outside corner of the right eye. 5. [place] one spray only. Take a sniff as you are spraying but do not snort. 6. Repeat in the left nostril while pointing towards the outside corner of the left eye 8. Then if you are doing two sprays in each nostril wait 4-5 minutes before spraying the second spray. 9. If it drips out every time such when the nose is very congested. Have the patient sit on the bed. Look down, spray and then lay down on their back on a bed. This will allow the medicine to coat the nose on the way back. Sit up and repeat for the other side. --------- Symptomatic therapy remains the mainstay of common ??ld treatment. Patients with moderate to severe symptoms may use a variety of therapies to relieve symptoms. Therapies that may be effective -- The following therapies may be effective for some individuals and are options for patients with moderate to severe symptoms. Choice of therapy will depend on what symptoms predominate. Importantly, there are no data supporting any single universal, highly effective treatment option for the common col? and we do not favor any one of the following treatments over others. Analgesics -- Available data suggest that acetaminophen (TYLENOL) and nonsteroidal antiinflammatory drugs (NSAIDs) (MOTRIN, IBUPROFEN, ALEVE) are roughly equivalent at relieving some symptoms (eg, headache, ear pain, muscle and joint pains, malaise, and sneezing) associated with common ?old, and that short course s of standard doses in this setting are generally safe and well-tolerated Antihistamine/decongestant combinations -- The combination of ??tihi?richie??? and ?ge?t??ts may be more beneficial than either component alone. EXAMPLES: CLARITIN-D, ZYRTEC-D, JEANNE-D Intranasal/inhaled cromolyn sodium -- Various formulations of intranasal or inhalational cromolyn sodium are available over the counter (NasalCrom Allergy Nasal [place]). ?r?moly? sodium administered intranasally and/or by inhalation may improve col? symptoms. Intranasal ipratropium bromide -- Symptoms of rhin?rrh?? and sneezing may be improved by the use of intranasal ipratropium bromide,(NASOCORT) though nasal congestion is not affected. Therapies with minimal or uncertain benefits -- We generally start treatment with therapies that may be effective. Treatments for which the balance of benefits to harms seems small or uncertain may be reasonable options in some patients who are not able to tolerate the more effective therapies. Dextromethorphan -- Evidence supporting the use of dextromethorphan (ROBITUSSIN, MUCINEX, DELSYM)for acute ?ough due to the common ??l? is limited and generally poor in quality, with various studies showing mixed results However, even in those studies which do demonstrate a statistically significant benefit, the benefit is found to be small (12 to 36 percent reduction in c?ugh events) Given the lack of consistent important benefit in published studies, the minor nature of the relief seen in positive trials, and potential for side effects from misuse, we do not routinely use ???tr?m?th?rph?n for acute ???gh due tothe common cold Decongestants -- Topical and oral ?g??t??t?, such as pseudoephedrine, (SUDAFED) may offer mild relief of nasal congestion associated with the common ??l? when used alone Repeated doses of nasal ?g??t?nts produced a small and probably clinically insignificant benefit (approximately 4 percent) over three to five days. ?Oral - Phenylephrine (SUDAFED PE) is less effective than pseudoephedrine (SUDAFED) for treatment of rhi?iti? symptoms. ?Topical - Topical decongestant (AFRIN, SINEX) use should be limited to two to three days because rebound rhinitis can occur after 72 hours of use. The use of topical ?g??t??t? may occasionally be complicated by nosebleeds, agitation, insomnia, and worsened hypertensive control in patients withpreexisting hypertension. Saline nasal spray -- Saline nasal sprays may help nasal symptoms of the common c?ld. Expectorants -- The expectorant guaifenesin (MUCINEX, MUCINEX DM, MUCINEX FAST MAX) had a marginal effect- no good evidence for or against the effectiveness of usdt-aak-ytgyrbn medications (including g??if?n??i?, mucolytics, and combination medications) for acute c?ugh. Honey -- Honey is helpful in improving symptoms of upper respiratory tract infection with ??ugh in children and may also be helpful in symptom management in adults. Herbal products -- ELDERBERRY, questionable if it really helps w/ cold symptoms. High-quality, valid evidence of the efficacy of these botanical products is lacking and further studies are needed before these botanicalproducts can be recommended. Oral zinc -- Although zi?? preparations may decrease c?l? symptom severity and duration, we generally do not use zi?? because its minimal potential benefits are outweighed by known adverse effects (bad taste, nausea, irreversible anosmia when administered intranasally). MEDICATIONS CONSIDERED SAFE TO USE IN / BREAST FEEDING ALLERGY Diphenhydramine (Benadryl) Loratadine (Claritin) Cetirizine (Zyrtec) ASTHMA EXACERBATION Albuterol poorly controlled asthma greater risk than medications given. Prednisone oral Short Course if wheezing significant BACTERIAL VAGINOSIS Clindamycin oral or topical Flagyl oral or topical COLD SYMPTOMS Acetaminophen (Tylenol) Diphenhydramine (Benadryl) Pseudoephedrine (Sudafed) Avoid first trimester; caution with BP in semester; NO if HTN history Loratadine (Claritin) Zinc lozenges. Chloraseptic spray Mucinex avoid multi-symptom forms of this. ATROVENT NASAL SPRAY FLONASE NASAL SPRAY CONSTIPATION Methylcellulose fiber (Citrucel) all occasional use ONLY Docusate (Colace) Psyllium (Fiberall, Metamucil) Polycarbophil (FiberCon) polyethylene glycol ( Miralax) COUGH Robitussin Mucinex cough drops DIARRHEA Loperamide (Imodium) after 1st Trimester for 24 hours only documented in [facility] NoteHNO ID: [id number] Author: JULIA BROWNE APRN.ALLIE Service: ? Author Type: Nurse Practitioner Type: Progress Notes Filed: 06/17/2024 12:04 Note Text: Informed verbal consent was obtained from this patient to communicate and provide care using virtual and other telecommunications tools. This patient has been explained the risks related to unauthorized disclosure or interception of personal health information and steps they can take to help protect their information. We have discussed that care provided through video or audio communication cannot replace the need for physical examination or an in person visit for some disorders or urgent problems and patient understands the need to seek urgent care in an Emergency Department as necessary. Telemedicine Visit - Distance Health Virtual Visit Note Patient seen on Virtual Platform, Handseeing Information Online Location of patient: [place] History of Present Illness Claudia Farfan is a 28 year old female who presents for the past 2 day with symptoms that are: Worsening 16 WEEKS Symptoms include: Positive for: DEEP COUGH, TMAX 100,99,98, SINUS DRAINAGE, FATIGUED, POOR APPETITE, SOME NAUSEA Negative for: OTC meds/remedies that patient has tried: TYLENOL 500MG Q 6, ANTIHISTAMINE, COUGH MED Q HRS, ALBUTEROL INHALER (NO ASTHMA) COVID TEST: NO COVID VACCCINE: Tobacco/ SMOKER/ VAPE use: No Recent exposure to strep:No Sick contacts: NO Recent travel: NO PAST MEDICAL HISTORY Diagnosis Date Avulsion fracture of left hip (HCC) 2007 Environmental allergies Generalized anxiety disorder Insulin resistance PCOS (polycystic ovarian syndrome) PAST SURGICAL HISTORY Procedure Laterality Date CYSTO.PANENDO 2000 Cyst removed under tongue EXTRACTION ERUPTED TOOTH/EXR REMOVAL GALLBLADDER feb 2023 TONSILLECTOMY AND ADENOIDECTOMY Current Outpatient Medications Medication Sig Clobetasol Propionate (TEMOVATE) 0.05 % external solution Apply 1 application to affected area two times a day. FLUoxetine (PROZAC) 10 mg capsule Take 2 capsules by mouth once daily for 14 days, THEN 1 capsule once daily for 7 days, THEN 1 capsule every other day for 7 days. No current facility-administered medications for this visit. ALLERGIES No Known Allergies OBJECTIVE // VIDEO EXAM (if available) General appearance Alert, oriented, pleasant, in NAD: Yes Ill appearing: Yes Lethargic appearing: No HEENT Eyes: Sclera clear :Yes Conjunctiva without erythema :Yes Frontal sinus tenderness by self palpation;No Maxillary sinus tenderness by self palpation :No Ears: Tragus / outer ear tenderness by self palpation :No Tender cervical adenopathy by self palpation :Yes Oropharynx: normal, no erythema PULMONARY Respiratory distress: No Coughing noted: DRY Audible wheezing noted: NO Strep Centor Criteria - Age (2-14=+1, 15-44=0, >=45 -1): - Tonsillar exudates: - Tender anterior cervical adenopathy: - Fever by history (>38 or 100.4): - Absence of cough: 0 points- probability of strep is 1-2.5% 1 point- probability of strep is 5-10% 2 points- probability of strep is 11-17% 3 points- probability of strep is 28-35% 4 points- probability of strep is 51-53% Sinusitis: >3-4 days: N Worsening after 3-4 days , lasting 5-6 days: >10 days not improving: Fever > or equal to 102 or worsening fever : N; temp 98-100 Purulent nasal discharge CLEAR Worsening nasal discharge after initial improvement of URI: Facial pain N Day time cough: Y ASSESSMENT/PLAN: 1. Acute cough - ICD9: 786.2, ICD10: R05.1 (primary diagnosis) - FLUTICASONE PROPIONATE 50 MCG/ACTUATION NASAL SPRAY,SUSPENSION - AZELASTINE 137 MCG (0.1 %) NASAL SPRAY 2. Acute URI - ICD9: 465.9, ICD10: J06.9 - Discussed viral etiology and rationale for treatment. - Symptomatic treatment with prn analgesia - Supportive care with fluids and rest - FLUTICASONE PROPIONATE 50 MCG/ACTUATION NASAL SPRAY,SUSPENSION - AZELASTINE 137 MCG (0.1 %) NASAL SPRAY 3. Sinus drainage - ICD9: 478.19, ICD10: J34.89 - FLUTICASONE PROPIONATE 50 MCG/ACTUATION NASAL SPRAY,SUSPENSION 4. PND (post-nasal drip) - ICD9: 784.91, ICD10: R09.82 - AZELASTINE 137 MCG (0.1 %) NASAL SPRAY 5. 16 weeks gestation of - ICD9: V22.2, ICD10: Z3A.16 CONTINUE W/ HOME MEDS DISCUSSED Most consistent at this time with uncomplicated viral URI/respiratory infection. Recommended continued symptomatic treatments and monitoring. -[email or web address] This link shares information about when antibiotics may help and when they may not. - Reviewed OTC medications and supplements to help w/ sxs - Encouraged good hydration, handwas (more content not included)...[facility]02-01-2025 History of Present illness Narrative* Julia Browne APRN.DISASTER RECOVERY COORDINATOR - 06/17/2024 11:51 AM EST Informed verbal consent was obtained from this patient to communicate and provide care using virtual and other telecommunications tools. This patient has been explained the risks related to unauthorized disclosure or interception of personal health information and steps they can take to help protect their information. We have discussed that care provided through video or audio communication cannot replace the need for physical examination or an in person visit for some disorders or urgent problems and patient understands the need to seek urgent care in an Emergency Department as necessary. Telemedicine Visit - Distance Health Virtual Visit Note Patient seen on Virtual Platform, Handseeing Information Online Location of patient: [place] History of Present Illness Claudia Farfan is a 28 year old female who presents for the past 2 day with symptoms that are: Worsening 16 WEEKS Symptoms include: Positive for: DEEP COUGH, TMAX 100,99,98, SINUS DRAINAGE, FATIGUED, POOR APPETITE, SOME NAUSEA Negative for: OTC meds/remedies that patient has tried: TYLENOL 500MG Q 6, ANTIHISTAMINE, COUGH MED Q HRS, ALBUTEROL INHALER (NO ASTHMA) COVID TEST: NO COVID VACCCINE: Tobacco/ SMOKER/ VAPE use: No Recent exposure to strep:No Sick contacts: NO Recent travel: NO PAST MEDICAL HISTORY Diagnosis Date Avulsion fracture of left hip (HCC) 2007 Environmental allergies Generalized anxiety disorder Insulin resistance PCOS (polycystic ovarian syndrome) PAST SURGICAL HISTORY Procedure Laterality Date CYSTO.PANENDO 2000 Cyst removed under tongue EXTRACTION ERUPTED TOOTH/EXR REMOVAL GALLBLADDER feb 2023 TONSILLECTOMY & ADENOIDECTOMY <AGE 12 Current Outpatient Medications Medication Sig Clobetasol Propionate (TEMOVATE) 0.05 % external solution Apply 1 application to affected area two times a day. FLUoxetine (PROZAC) 10 mg capsule Take 2 capsules by mouth once daily for 14 days, THEN 1 capsule once daily for 7 days, THEN 1 capsule every other day for 7 days. No current facility-administered medications for this visit. ALLERGIES No Known Allergies OBJECTIVE // VIDEO EXAM (if available) General appearance Alert, oriented, pleasant, in NAD: Yes Ill appearing: Yes Lethargic appearing: No HEENT Eyes: Sclera clear :Yes Conjunctiva without erythema :Yes Frontal sinus tenderness by self palpation;No Maxillary sinus tenderness by self palpation :No Ears: Tragus / outer ear tenderness by self palpation :No Tender cervical adenopathy by self palpation :Yes Oropharynx: normal, no erythema PULMONARY Respiratory distress: No Coughing noted: DRY Audible wheezing noted: NO Strep Centor Criteria - Age (2-14=+1, 15-44=0, >=45 -1): - Tonsillar exudates: - Tender anterior cervical adenopathy: - Fever by history (>38 or 100.4): - Absence of cough: 0 points- probability of strep is 1-2.5% 1 point- probability of strep is 5-10% 2 points- probability of strep is 11-17% 3 points- probability of strep is 28-35% 4 points- probability of strep is 51-53% Sinusitis: >3-4 days: N Worsening after 3-4 days , lasting 5-6 days: >10 days not improving: Fever > or equal to 102 or worsening fever : N; temp 98-100 Purulent nasal discharge CLEAR Worsening nasal discharge after initial improvement of URI: Facial pain N Day time cough: Y ASSESSMENT/PLAN: 1. Acute cough - ICD9: 786.2, ICD10: R05.1 (primary diagnosis) - FLUTICASONE PROPIONATE 50 MCG/ACTUATION NASAL SPRAY,SUSPENSION - AZELASTINE 137 MCG (0.1 %) NASAL SPRAY 2. Acute URI - ICD9: 465.9, ICD10: J06.9 - Discussed viral etiology and rationale for treatment. - Symptomatic treatment with prn analgesia - Supportive care with fluids and rest - FLUTICASONE PROPIONATE 50 MCG/ACTUATION NASAL SPRAY,SUSPENSION - AZELASTINE 137 MCG (0.1 %) NASAL SPRAY 3. Sinus drainage - ICD9: 478.19, ICD10: J34.89 - FLUTICASONE PROPIONATE 50 MCG/ACTUATION NASAL SPRAY,SUSPENSION 4. PND (post-nasal drip) - ICD9: 784.91, ICD10: R09.82 - AZELASTINE 137 MCG (0.1 %) NASAL SPRAY 5. 16 weeks gestation of - ICD9: V22.2, ICD10: Z3A.16 CONTINUE W/ HOME MEDS DISCUSSED Most consistent at this time with uncomplicated viral URI/respiratory infection. Recommended continued symptomatic treatments and monitoring. -[email or web address] This link shares information about when antibiotics may help and when they may not. - Reviewed OTC medications and supplements to help w/ sxs - Encouraged good hydration, handwashing and use of humidified air - Encouraged REST - Red flags discussed for need for in person care - All questions answered IF YOUR SYMPTOMS PERSIST OR WORSENING IN THE NEXT 10 DAYS THEN PLEASE FOLLOW UP WITH YOUR PCP Julia Browne, MSN, CURTAIN ROLLER ASSEMBLER-DISASTER RECOVERY COORDINATOR, [facility] documented in this [facility] Evaluation note* Diagnosis Onset Date Resolution Status Admit Date Anxiety acute May 24, 025 8:26am Heart murmur acute May 24, 2024 8:26am acute May 24 025 8:26am Supervision of high-risk acute May 24 8:26am Anxiety acute June 26, 2024 9:29am Heart murmur acute June 9:29am acute June 26, 2024 9:29am Supervision of high-risk acute June 26 9:29am Anxiety acute July 28 8:33am Heart murmur acute July 28, 2024 8:33am acute July 28 8:33am Supervision of high-risk acute July 28, 2024 8:33am Anxiety acute August 21 8:28am Heart murmur acute August 21 8:28am Obesity affecting acute August 21, 2024 8:28am acute August 21 8:28am Supervision of high-risk acute August 21, 2024 8:28am [facility] Work Phone: [phone] 573-270211-01-2024 History of Present illness Narrative* Hector Winchester APRN.CNP - 03/17/2024 9:05 AM EDT Images from the original note were not included. Subjective Claudia Farfan is a 28 year old female here today for follow-up anxiety. I reviewed past medical, surgical, social, and family histories today and updated chart. Allergies, chronic medications, and supplements were also reviewed. 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 - new Itchy Past couple of days - having shakiness Drinks energy drink, fasts a little then eats high protein diet Then about 30 min after eating her hands will get very shaky She was able to check her blood sugar and it was 99 She felt a little off with this yesterday and was able to just sit and relax Happened at work the other day and felt very weak and sick, no nausea, just weak PAST MEDICAL HISTORY Diagnosis Date Avulsion fracture of left hip (HCC) 2007 Environmental allergies Generalized anxiety disorder Insulin resistance PCOS (polycystic ovarian syndrome) PAST SURGICAL HISTORY Procedure Laterality Date CYSTO.PANENDO 2000 Cyst removed under tongue EXTRACTION ERUPTED TOOTH/EXR REMOVAL GALLBLADDER feb 2023 TONSILLECTOMY & ADENOIDECTOMY <AGE 12 ALLERGIES Patient has no known allergies. MEDICATIONS FLUoxetine (PROZAC) 10 mg capsule Take 2 capsules by mouth once daily for 14 days, THEN 1 capsule once daily for 7 days, THEN 1 capsule every other day for 7 days. FAMILY HISTORY Problem Relation Age of Onset other (Hysterectomy) Mother 40 GERD Mother Diabetes Father Depression Brother COPD Maternal Grandmother Heart Attack Maternal Grandfather Stroke Maternal Grandfather Hypothyroidism Maternal Grandfather COPD Paternal Grandmother Heart Attack Paternal Grandfather other (Esophageal Cancer) Other Breast Cancer Other Social History Tobacco Use Smoking status: Never Smokeless tobacco: Never Substance Use Topics Alcohol use: Yes Comment: maybe twice a year Drug use: Never Review of Systems Constitutional: Negative for appetite change, chills, fatigue, fever and unexpected weight change. HENT: Negative for congestion, ear pain, rhinorrhea and sore throat. Eyes: Negative for pain, discharge, itching and visual disturbance. Respiratory: Negative for cough, shortness of breath and wheezing. Cardiovascular: Negative for chest pain, palpitations and leg swelling. Gastrointestinal: Negative for abdominal pain, constipation, diarrhea, nausea and vomiting. Genitourinary: Negative for difficulty urinating. Musculoskeletal: Negative for arthralgias. Skin: Positive for rash. Neurological: Negative for dizziness, tremors, weakness and headaches. Psychiatric/Behavioral: Negative for dysphoric mood and sleep disturbance. The patient is not nervous/anxious. Objective BP 110/70 Pulse 72 Temp 97.7 Ht 5' 3 (1.60m) Wt 202 lb (91.6kg) SpO2 98% BMI 35.79 kg/(m^2). Physical Exam HENT: Head: Normocephalic and atraumatic. Eyes: Conjunctiva/sclera: Conjunctivae normal. Pupils: Pupils are equal, round, and reactive to light. Cardiovascular: Rate and Rhythm: Normal rate and regular rhythm. Pulses: Normal pulses. Heart sounds: Normal heart sounds. Pulmonary: Effort: Pulmonary effort is normal. Breath sounds: Normal breath sounds. Musculoskeletal: Cervical back: Normal range of motion and neck supple. Lymphadenopathy: Cervical: No cervical adenopathy. Skin: General: Skin is warm and dry. Findings: Rash present. Neurological: General: No focal deficit present. Mental Status: She is alert and oriented to person, place, and time. Cranial Nerves: No cranial nerve deficit. Sensory: Sensation is intact. Motor: Motor function is intact. Coordination: Coordination is intact. Psychiatric: Attention and Perception: Attention and perception normal. Mood and Affect: Mood and affect normal. Mood is not anxious or depressed. Affect is not labile or inappropriate. Speech: Speech normal. Behavior: Behavior normal. Behavior is not agitated. Thought Content: Thought content normal. Thought content does not include suicidal ideation. Cognition and Memory: Cognition normal. Judgment: Judgment normal. Judgment is not impulsive. 01/04/2024 03/17/2024 MADDIE - 7 SCORES Score 15 4 (0-4) minimal anxiety, (5-9) mild anxiety, (10-14) moderate anxiety, (15-21) severe anxiety 01/04/2024 03/17/2024 PHQ-9 Score 6 3 (0-4) minimal depression, (5-9) mild depression, (10-14) moderate depression, (15-19) moderately severe depression, (20-27) severe depression ASSESSMENT/PLAN: 1. MADDIE (generalized anxiety disorder) - ICD9: 300.02, ICD10: F41.1 (primary diagnosis) Weaning off fluoxetine 2. Tremor - ICD9: 781.0, ICD10: R25.1 Check labs - COMPLETE BLOOD COUNT - COMPREHENSIVE METABOLIC PANEL - THYROID STIMULATING HORMONE - VITAMIN B12 3. Screening for lipid disorders - ICD9: V77.91, ICD10: Z13.220 - LIPID PANEL BASIC 4. Psoriasis of scalp - ICD9: 696.1, ICD10: L40.9 - CLOBETASOL 0.05 % SCALP SOLUTION FU 3 months Hector Winchester APRN.ALLIE documented in this [facility] NoteHNO ID: [id number] Author: HECTOR WINCHESTER APRN.CNP Service: ? Author Type: Nurse Practitioner Type: Progress Notes Filed: 03/26/2024 14:27 Note Text: Subjective Claudia Farfan is a 28 year old female here today for follow-up anxiety. I reviewed past medical, surgical, social, and family histories today and updated chart. Allergies, chronic medications, and supplements were also reviewed. 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 - new Itchy Past couple of days - having shakiness Drinks energy drink, fasts a little then eats high protein diet Then about 30 min after eating her hands will get very shaky She was able to check her blood sugar and it was 99 She felt a little off with this yesterday and was able to just sit and relax Happened at work the other day and felt very weak and sick, no nausea, just weak PAST MEDICAL HISTORY Diagnosis Date Avulsion fracture of left hip (HCC) 2007 Environmental allergies Generalized anxiety disorder Insulin resistance PCOS (polycystic ovarian syndrome) PAST SURGICAL HISTORY Procedure Laterality Date CYSTO.PANENDO 2000 Cyst removed under tongue EXTRACTION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 Taken Unknown] magnesium 200 mg tablet 200 mg PO DAILY 02/23/23 [History Last Taken Unknown] omega-3 fatty acids 500 mg PO DAILY 02/23/23 [History Last Taken Unknown] oxycodone-acetaminophen 5 mg-325 mg tablet 1 - 2 tab PO Q6H PRN pain 3 days #14 tabs 03/02/23 [Rx Last Taken Unknown] amoxicillin 875 mg-potassium clavulanate 125 mg tablet 1 tab PO BID #14 tabs 03/12/23 [Rx Last Taken Unknown] ondansetron 4 mg disintegrating tablet 4 mg PO Q8H PRN PRN Nausea #10 tabs 03/12/23 [Rx Last Taken Unknown] oxycodone 5 mg capsule 5 mg PO Q6H PRN pain 5 days #20 caps 03/12/23 [Rx Last Taken Unknown] Allergy/AdvReac Type Severity Reaction Status Date / Time No Known Allergies Allergy Verified 03/12/23 14:20 Family History Mother Asthma Grandfather Heart disease Hypertension CVA (cerebral vascular accident) Thyroid disorder Surgical History History of surgery History of surgery History of surgery Social History adopted: No household members: significant other and family housing: house current occupational status: employed 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 current occupational exposures/hazards: No pets and animals: Yes pets and animals: dog(s) history of recent travel: No sexually active: Yes Smoking Status: Never smoker second hand exposure: No alcohol intake: former details: rarely socially- Not while substance use type: does not use well-balanced diet: daily or most days caffeine: Yes Type: coffee Number of servings: 1 eating out: 1-3 times/week during the past year weight has: decreased > 10 lbs what type of physical activity do you participate in: none ronn/taoist: None seatbelt use: always do you feel safe at home: Yes additional social history: Boyfriend Pernell- Pest Control EXAM Physical Exam Const Vital Signs: 03/12/23 14:17 Temperature 97.4 F L Temperature Source Temporal Pulse Rate 102 H Respiratory Rate 18 Blood Pressure 128/76 H Blood Pressure Mean 93 Pulse Ox 100 Oxygen Delivery Method Room Air MDM MDM MDM Narrative Medical decision making narrative: HISTORY OF PRESENT ILLNESS: 27-year-old female here with right upper quadrant pain. She states she had her gallbladder out on 1017 and ate food approxi-1 hour prior to arrival and developed severe pain. She further states pain is severe constant nonradiating. Denies changes to her bowel or bladder habits. Denies any fever. REVIEW OF SYSTEMS: Pertinent positives: Abdominal pain nausea Pertinent negatives: Fever, vomiting or urinary symptoms PHYSICAL EXAM: Nursing triage notes reviewed, Vital signs reviewed Constitutional: please see mdm HENT: MMM Eyes: Pupils equal round and reactive to light, Extraocular muscles intact Neck: No stridor, no JVD, full neck ROM Lungs: Clear to auscultation, No wheezing or rales. No increased work of breathing, no conversational dyspnea, no accessory muscle use, no nasal flaring. No respiratory distress noted Heart: Regular rate and rhythm, No murmurs, No rubs and No gallops, 2+ distal pulses (radial, femoral, posterior tibial) in all extremities Abdomen: Soft, there is no tenderness, rigidity, rebound or guarding, no obviousperitoneal signs, no palpable pulsatile abdominal masses, no auscultated abdominal bruit : No CVAT Extremities: No edema Neuro: No focal neurological deficits, cranial nerves II through XII intact, 5/5strength in all extremities. Intact sensation to light touch in all extremities,2+ reflexes bilateral patella tendons. Normal gait. No ataxia. Skin: No rash or lesions noted MEDICAL DECISION MAKING: Chief Complaint: Abdominal pain External records reviewed: Status post laparoscopic cholecystectomy on 03/02 Factors affecting care: Status post cholecystectomy Social determinants of health: none History obtained from others: Patient's family Consults: General surgery MDM Narrative: Hemodynamically stable, afebrile, nontoxic-appearing. Exam she is tender to palpation but no obvious peritoneal signs. I considered the following differential diagnosis: Postop complication, postop pain, intra-abdominal abscess or infection ALL IMAGES (IF OBTAINED) HAVE BEEN PERSONALLY REVIEWED AND INTERPRETED BY MYSELF. CBC with leukocytosis suggestive of systemic inflammation, no anemia or thrombocytopenia noted CMP without significant electrolyte abnormalities, no anion gap, no CARISSA LFTs show no evidence of hepatobiliary pathology. Lipase is wnl indicating no pancreatic inflammation. test is negative Urinalysis shows no evidence of urinary inflammation suggestive of UTI Scan abdomen/pelvis shows no evidence of acute surgical process. Noted stranding and fluid in the gallbladder fossa but no obvious abscess. Call to general surgery spoke to Dr. Chapa. He recommended against surgical intervention at this time. He recommended discharge with oral antibiotics given elevated white blood cell count ongoing pain. Also recommended giving pain medication. The patient and/or family, caregivers express understanding. The patient and/orfamily, caregivers agrees with the plan. Shared decision making: I will have a discussion with the patient and or visitors regarding risk/benefits of further testing or admission. They will be made aware of of the risk/benefits inherent in this decision they will be given the opportunity to voice understanding. Total critical care time today provided was at least 0 minutes. This excludes separately billable procedures. Critical care time (if documented) is secondary to the patient having high probability of clinically significant/life threatening deterioration in the patient's condition which required my urgent intervention. Impression: 1. Abdominal pain 2. Post-op pain 3. Leukocytosis Dispo: discharge Lab Data Labs: Laboratory Results - last 24 hr 03/12/23 03/12/23 14:44 15:46 WBC 16.9 H RBC 4.92 Hgb 14.0 Hct 42.3 MCV 86.0 MCH 28.5 MCHC 33.1 RDW Std Deviation 39.1 RDW Coeff of Tk 12.6 Plt Count 330 MPV 10.5 Immature Gran % (Auto) 0.400 Neut % (Auto) 79.3 H Lymph % (Auto) 12.8 L [place] % (Auto) 6.1 Eos % (Auto) 1.0 Baso % (Auto) 0.4 Absolute Neuts (auto) 13.4 H Absolute Lymphs (auto) 2.17 Nucleated RBC % 0 Sodium 139 Potassium 3.5 Chloride 106 Carbon Dioxide 24.0 Anion Gap 9 BUN 20 H Creatinine 1.00 Estim Creat Clear Calc 69.90 Est GFR (MDRD) Af Amer 86 Est GFR (MDRD) Non-Af 71 BUN/Creatinine Ratio 20.0 Glucose 120 H Calcium 8.9 Total Bilirubin 0.60 AST 43 H ALT 36 Alkaline Phosphatase 91 Total Protein 7.6 Albumin 3.6 Globulin 4.0 Albumin/Globulin Ratio 0.9 Lipase 50 Serum , Qual NEGATIVE Urine Color Yellow Urine Clarity Clear Urine pH 7.0 Ur Specific Mccoll 1.005 Urine Protein Negative Urine Glucose (UA) Normal Urine Ketones Negative Urine Occult Blood Negative Urine Nitrite Negative Urine Bilirubin Negative Urine Urobilinogen Normal Ur Leukocyte Esterase Negative Urine RBC 0 SEEN Urine WBC 0 SEEN Ur Squamous Epith Cells 0-5 SEEN Urine Bacteria 0 SEEN Urine Mucus 0 SEEN Radiography Diagnostic Testing: Clinical Impression(s) from Imaging Studies Abdomen/Pelvis CT 03/12/23 15:00 IMPRESSION: Status post cholecystectomy with fluid and stranding in the gallbladder fossa. No discrete fluid collection. No bowel obstruction or inflammation. Normal appendix. Normal kidneys. No hydronephrosis. Electronically Signed: Robe Nails MD at 16:03 EDT , Discharge Plan Triage Chief Complaint: Abd Pain ED Provider: Jaylan Pedroza Dx/Rx/DC Orders Instructions: Managing Post-Op Pain at Home Prescriptions: New oxycodone 5 mg capsule 5 mg PO Q6H PRN (Reason: pain) 5 Days Qty: 20 0RF amoxicillin-pot clavulanate 875-125 mg tablet 1 tab PO BID Qty: 14 0RF ondansetron 4 mg tablet,disintegrating 4 mg PO Q8H PRN PRN (Reason: Nausea) Qty: 10 0RF No Action folic acid 800 mcg tablet 0.8 mg PO DAILY cholecalciferol (vitamin D3) 25 mcg (1,000 unit) capsule 25 mcg PO DAILY magnesium 200 mg tablet 200 mg PO DAILY ascorbic acid (vitamin C) [C-500] 500 mg tablet 500 mg PO DAILY omega-3 fatty acids Capsule 500 mg PO DAILY oxycodone-acetaminophen 5-325 mg tablet 1 - 2 tab PO Q6H PRN (Reason: pain) 3 Days Qty: 14 0RF Primary Care Provider: Care Physician,Michelle Primary Referrals: Christal Mccall MD [Med Staff - Active Staff] - Activity Restrictions/Additional Instructions: Thank you for trusting us with your care today! Please take Tylenol (2 pills, 650 mg), ibuprofen (2 pills, 400 mg) every 6 hoursas needed for pain and fever control. If this does not control your pain please take oxycodone as needed. Please take Zofran as needed for nausea. Please return to the emergency department if your symptoms change or worsen. Please follow with your general surgeon for further outpatient evaluation and management. Disposition Disposition: Home, Self Care What to do if you have Problems For any increased pain, shortness of breath, bleeding, nausea or vomiting, chestpain, or any unexpected problems, contact your Primary Care Provider. Call [facility] ([phone]) or report to the closest Emergency Room. Call 911 if necessary. 03/12/23 1734 <Electronically signed by Jaylan Pedroza DO> Cosigner Signature (if applicable): CC: No Primary Care Physician ~ Signed [facility] Work Phone: 1(281) 188-558010-17-2023 Discharge summary Author Christal Mccall [facility] March 02, 2023 12:25pm Note Date/Time March 02, 2023 1 2:25pm [facility] Medical Records Department [address] [place] [address] Instructions for Home/Discharge Instructions 03/02/23 1225 MR#: [id number] Acct: [id number] Name: CLAUDIA FARFAN Rep #:[id number] : 1995 27 From: Christal Mccall MD PCP: Care Physician,No Primary Status :[facility] Discharge Instructions Diet Discharge Diet: Light diet - advance as tolerated Activity Discharge Activity: May Not Drive (while taking narcotic pain medications.) May shower in (days): 1 Lifting Restrictions: no lifting >20 lbs x 2 wks, no strenuous exercise for 4 wks Dressing / Incision Call your doctor if your incision/area has: Continuous Slow Oozing, Sudden Increased Bleeding, Increased Pain/ Swelling, Increased Redness, Foul Smelling Discharge and Swelling at the incision site Call your doctor if you observe: Fever of 101 or Higher Remove Dressing in: 2 days Cleanse incision/area with: Soap & Water Additional Dressing/Incision Instructions:: Steri-Strips will fall off in 7 to 10 days, if they do not fall off okay to remove after 10 days. Follow Up Care Please Follow Up With: Christal Mccall MD When: Call the office for a follow-up appointment 2 weeks; after 5 PM and on call [phone] with any concerns. Test Results: Test results from this visit will be discussed in further detail at your follow- up appointment, if applicable. Discharge Plan Admission Attending Provider: Christal Mccall Primary Care Provider: Care Physician,No Primary Instructions Additional Instructions / Restrictions: Okay to take ibuprofen 400-600 mg PO q6hr PRN along with the Percocet. Avoid Tylenol since there is already Tylenol in the Percocet. Take all pain meds with food. Percocet can cause constipation recommend taking daily stool softener (i.e. Colace/docusate) while taking the pain meds. Recommend starting some MiraLAX in1-2 days if no bowel movement. If still no bowel movement the next day recommend taking magnesium citrate half the bottle and waiting 4-6 hours if still no results take the other half the bottle. Discharge Orders/Prescriptions Prescriptions: New oxycodone-acetaminophen 5-325 mg tablet 1 - 2 tab PO Q6H PRN (Reason: pain) 3 Days Qty: 14 0RF Continued folic acid 800 mcg tablet 0.8 mg PO DAILY cholecalciferol (vitamin D3) 25 mcg (1,000 unit) capsule 25 mcg PO DAILY magnesium 200 mg tablet 200 mg PO DAILY ascorbic acid (vitamin C) [C-500] 500 mg tablet 500 mg PO DAILY omega-3 fatty acids Capsule 500 mg PO DAILY Referrals / Follow Up: Care Physician,No Primary [Primary Care Provider] - Disposition Disposition (needs filled in before D/C Order can be placed): Home, Self Care 03/02/23 1225<Electronically signed by Christal Mccall MD>Christal Mccall MD CC: No Primary Care Physician ~ Signed [facility] Work Phone: 1(764) 999-249810-17-2023 History and physical note Author Christal [facility] March 02, 2023 10:33am Note Date/Time March 02, 2023 1 0:33am [facility] Medical Records Department [address] [place] [address] History & Physical Exam 03/02/23 1032 MR#: [id number] Acct: [id number] Name: CLAUDIA FARFAN Rep #:[id number] : 1995 27 From: Christal Mccall MD PCP: Care Physician,No Primary Status :[facility] Location: [place] [address] History and Physical Date of Admission: 03/02/23 Date of Service: 02/11/23 MR#: [id number] Acct: [id number] Name: CLAUDIA FARFAN Rep #: [id number] : 1995 Provider: Dr. Christal Mccall MD Age/Sex: 27/F Location: [facility] Status: Signed Intake Vital Signs 10/05/2312:08 02/11/2310:06 Height 5 ft 3 in 5 ft 3 in Weight: 220 lb 226 lb 8 oz BMI 38.9 40.1 BP 110/75 120/81 H Blood Pressure Location Rt brachial Rt brachial Position Sitting Sitting Respiration 17 17 Pulse 80 81 Pulse Source Monitor Monitor Temp 97.3 F L 96.7 F L Temp Source Temporal Temporal Pulse Oximetry (%) 98 97 Oxygen Delivery Method room air room air Intake Visit Reasons: UPDATE H&P Chief Complaint: gall bladder sludge Update H&P Is patient in pain?: No Allergies No Known Allergies Allergy (Verified 02/11/23 10:08) Medications PNV 153-FA 400 mcg-om3 35 mg-dha 25 mg-epa 5 mg-fish oil chew tablet 1 tab PO DAILY Check with primary doctor 01/13/22 [History Confirmed 02/11/23] cholecalciferol (vitamin D3) 25 mcg (1,000 unit) capsule 25 mcg PO DAILY 10/05/22 [History Confirmed 02/11/23] folic acid 800 mcg tablet 0.8 mg PO DAILY 10/05/22 [History Confirmed 02/11/23] zinc citrate 11 mg chewable tablet mg PO 10/05/22 [History Confirmed 02/11/23] PFSH Medical History Vaginal delivery Surgical History History of surgery History of surgery History of surgery Family History Mother AsthmaGrandfather Heart disease Hypertension CVA (cerebral vascular accident) Thyroid disorder Social History adopted: No household members: significant other and family housing: house current occupational status: employed 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 current occupational exposures/hazards: No pets and animals: Yes pets and animals: dog(s) history of recent travel: No sexually active: Yes Smoking Status: Never smoker second hand exposure: No alcohol intake: former details: rarely socially- Not while substance use type: does not use well-balanced diet: daily or most days caffeine: Yes Type: coffee Number of servings: 1 eating out: 1-3 times/week during the past year weight has: decreased > 10 lbs what type of physical activity do you participate in: none ronn/taoist: None seatbelt use: always do you feel safe at home: Yes additional social history: Boyfriend Pernell- Pest Control HPI HPI HPI: 27-year-old female presents due to right upper quadrant pain episodes. Patient was previously seen in September and offered a cholecystectomy at that time had other patient had other things going on in her life at that time. Patient states she has had multiple episodes since in October she did go to the ER at [facility] and itwas given some pain meds which she had used about every month that she has had episodes she states only takes about 1 pill of the OxyContin to help. Patient has still been having some creamer in her coffee and eating some peanut butter. Patient's previous ultrasound showed Rosalind lithiasis. Patient's repeat at the ER per the report shows cholelithiasis, no pericholecystic fluid, wall thickening but does not state that thickness of the wall except for its mild andcontracted and a negative date of Dixon sign within normal common bile duct. Patient had normal LFTs at the time of her ER visit in October. Patient states shedoes get nauseous with these episodes of occasional vomiting. Currently denies any nausea or vomiting or abdominal pain. ROS General General: No weight change, appetite, fatigue, colon cancer, breast cancer or weakness HEENT HEENT: No difficulty swallowing, eye injury, eye surgery, swollen glands or hoarseness Endo Endocrine: No thyroid disease, diabetes mellitus, thyroid cancer, Hair loss, heat intolerance or cold intolerance Skin Skin: No rash or changing moles Musc Musculoskeletal: Yes back problems; No arthritis, rheumatoid arthritis, gout or joint pain Cardio Cardiovascular: Yes murmur; No pacemaker, heart disease, atrial fibrillation, high blood pressure, heart attack, heart stent, palpitations, shortness of breat with exertion or chest pain Psych Psychiatric: No depression, anxiety or hearing voices Resp Respiratory: No shortness of breath, No sleep apnea, No cough, No COPD, No asthma, No emphysema and No wheezing Gastro Gastrointestinal: Yes abdominal pain, Yes nausea or vomiting, No diarrhea, No constipation, No blood in stool, No acid reflux, No hemorrhoids, No ulcers, Yes gallbladder problem and No black,tarry stools Christoph Hematologic: No blood thinners, No blood disorders, No bleeding, No anemia and No blood clots Neuro Neurologic: No system reviewed and no additional complaints, except as documented, No as per HPI, No abnormal gait, No abnormal hearing, No abnormal movements, No abnormal speech, No behavioral changes, No burning sensations, No confusion, No convulsions, No disequilibrium, No dizziness, No localized weakness, No frequent falls, No headache(s), No lack of coordination, No loss ofvision, No memory loss, No numbness, No other visual disturbances, No radicular pain, No restless legs, No sensory deficit, No syncope, No tingling, No tremor(s), No weakness and No other Exam Const General: cooperative, healthy appearing, comfortable and no acute distress Neck Neck: normal visual inspection Resp Effort & Inspection: normal respiratory effort Cardio Rate: regular rate GI Inspection: non-distended Palpation: soft, no guarding and nontender Skin General: no rashes or lesions noted Neuro General: patient oriented x3 Psych Affect: normal affect Assessment and Plan Assessment and Plan (1) Gallbladder sludge: Status: Acute (2) Cholelithiasis: Status: Acute Plan Recommend patient stay away from creamer any amount pain better fatty greasy foods until surgery. Surgery is scheduled for March 02 which works for the patient. Reviewed the anatomy with the patient and discussed the procedure: laparoscopic cholecystectomy with possible cholangiograms, possible open. Review risks including but not limited to bleeding, infection, hernia, bile leak, retained gallstones requiring another procedure ERCP- Endoscopic Retrograde Cholangiopancreatography, injury to another organ (bile ducts, common bile duct,small bowel, etc.) and conversion to an open procedure. All questions were answered. Christal Mccall M.D. Pager: [phone] [facility] [address] [place] [address], [address] [place] [address] Office: [phone] Coding Level of Care Code Off vis,est,level 3 Diagnoses Gallbladder sludge K82.8 Cholelithiasis K80.20 02/12/23 1156 <Electronically signed by Christal Mccall MD> Date Christal Mccall MD 03/02/23 1033 <Electronically signed by Christal Mccall MD> Cosigner Signature (if applicable): CC: Dr. Christal Mccall MD; No Primary Care Physician~ Signed ADDENDUM by Dr. Christal Mccall MD on 03/02/23 at 1033 Addendum I have examined the patient and the H&P has been reviewed. There are no clinicalchanges since date of exam. 10/17/23 1033<Electronically signed by Christal Mccall MD> Cosigner Signature (if applicable): cc: Dr. Christal Mccall MD; No Primary Care Physician ~* Signed [facility] Work Phone: 1(526) 341-125410-17-2023 Procedure [facility] 08-18-2022 Progress note Author Gui Sloan [facility] August 18, 2022 7:54am Note Date/Time August 18, 2022 7:54 am [facility] Medical Records Department [address] [place] [address] Progress Note - OBGYN 08/18/22 0752 MR#: [id number] Acct: [id number] Name: CLAUDIA FARFAN Rep #:[id number] : 1995 From: Gui Sloan SLURRY TANK TENDER SLURRY TANK TENDER-C PCP: Care Physician,No Primary Status :ADM IN Location: [place] [address] Subjective Subjective Patient doing well without complaints. Tolerating PO. Ambulating and voiding without difficulty. Feeding well. Denies chest pain, shortness of breath, calf pain/swelling, fevers, chills, lightheadedness. Baby in SCN, glucose issue but improving Objective Data Objective Data Vital Signs: Vital Signs Temp Pulse Resp BP Pulse Ox O2 Del Method 98 F 83 14 99/58 L 97 Room Air 08/18/22 02:40 08/18/22 02:40 08/18/22 02:40 08/18/22 02:40 08/17/22 04:08 08/18/22 02:40 Oxygen Delivery Method Room Air Weight: 230 lb Body Mass Index (BMI) 40.7 Intake & Output: Intake and Output for Last 24 Hours 08/16/22 08/17/22 08/18/22 23:59 23:59 23:59 Intake Total 3231.79 / 3231.79 250 / 250 Output Total 1100 / 1100 1620 / 1620 Balance 2131.79 / 2131.79 -1370 / -1370 Lab / Micro Data Result Diagrams: 08/16/22 08:20 Physical Exam Const alert and oriented x3 HEENT normocephalic Eyes PERRL Neck full ROM Resp normal respiratory effort GI soft to palpation GI Narrative: FF below U Assessment & Plan (1) Vaginal delivery: COMMENT: KW/SM 39 IOL abnl NIPT boy Singh PLAN: Plan s/p PPD # 2 1. routine post delivery care 2. breast feeding- support given 3. rh positive 4. rubella immune 5. hotel status today 08/18/22 0754 <Electronically signed by Gui Sloan NP SLURRY TANK TENDER-C> Cosigner Signature (if applicable): CC: ~ Signed [facility] Work Phone: 1(180) 315-720604-03-2023 Progress note Author Rina Mead [facility] August 17, 2022 8:34am Note Date/Time August 17, 2022 8:34 am [facility] Medical Records Department [address] [place] [address] [place] [address] Progress Note - OBGYN 08/17/22832 MR#: [id number] Acct: [id number] Name: CLAUDIA FARFAN MARLENE Rep #:[id number] : 1995 26 From: Rina Mead CNM PCP: Care Physician,No Primary Status :ADM IN Location: [place] [id number] Subjective Subjective Patient doing well without complaints. Tolerating PO. Ambulating and voiding without difficulty. Feeding well. Denies chest pain, shortness of breath, calf pain/swelling, fevers, chills, lightheadedness. Objective Data Objective Data Vital Signs: Vital Signs Temp Pulse Resp BP Pulse Ox O2 Del Method 97.7 F L 87 16 109/61 97 Room Air 08/17/22 04:08 08/17/22 04:08 08/17/22 04:05 08/17/22 04:08 08/17/22 04:08 08/17/22 04:05 Oxygen Delivery Method Room Air Weight: 230 lb Body Mass Index (BMI) 40.7 Intake & Output: Intake and Output for Last 24 Hours 08/15/22 08/16/22 08/17/22 23:59 23:59 23:59 Intake Total 3231.79 / 3231.79 250 / 250 Output Total 1100 / 1100 1620 / 1620 Balance 2131.79 / 2131.79 -1370 / -1370 Lab / Micro Data Result Diagrams: 08/16/22 08:20 Labs: Laboratory Results - last 24 hr 08/16/22 08:20: WBC 11.7 H, RBC 4.50, Hgb 13.2, Hct 39.3, MCV 87.3, MCH 29.3, MCHC 33.6, RDW Std Deviation 43.2, RDW Coeff of Tk 13.7, Plt Count 226, MPV 12.4 H, Immature Gran % (Auto) 0.400, Neut % (Auto) 70.3 H, Lymph % (Auto) 21.7,[place] % (Auto) 6.8, Eos % (Auto) 0.5, Baso % (Auto) 0.3, Absolute Neuts (auto) 8.2 H, Absolute Lymphs (auto) 2.54, Nucleated RBC % 0 08/16/22 08:20: Blood Type A POSITIVE, Antibody Screen NEGATIVE 08/16/22 08:20: Syphilis Total Ab Non-reactive Physical Exam Const alert, oriented x3 and no apparent distress Eyes PERRL Neck full ROM Chest inspection of chest normal Resp normal respiratory effort, normal air movement and no retractions Cardio regular rate and regular rhythm GI GI Narrative: fundus firm, 1below u, moderate lochia. no clots Back/Spine normal ROM Extremity normal to inspection and full ROM Skin no rashes or lesions noted Psych mental status grossly normal Assessment & Plan (1) Vaginal delivery: COMMENT: KW/SM 39 IOL abnl NIPT boy Singh PLAN: s/p PPD # 1 1. routine post delivery care 2. breast feeding- support given 3. rh positive 4. rubella immune 5. in [place] care nursery, emotional support provided. 08/17/22 0834 <Electronically signed by Rina Mead CNM> Cosigner Signature (if applicable): CC: ~ Signed [facility] Work Phone: 1(266) 420-707804-03-[address] Yang [facility] August 16, 2022 10:35pm Note Date/Time August 16, 2022 10:3 5pm [facility] Medical Records Department [address] [place] [address] Instructions for Home/Discharge Instructions 08/16/225 MR#: [id number] Acct: [id number] Name: CLAUDIA FARFAN Rep #:[id number] : 1995 26 From: Penelope boyd MD PCP: Care Physician,No Primary Status :ADM IN Discharge Instructions Diet Discharge Diet: No restrictions Activity Discharge Activity: Return to Normal Activity, May Drive, May Shower and May Take a Tub Bath (in 4 weeks) May resume sexual activity in: 6-8 weeks (after seen by OB provider) Weight Bearing Status: Full weight bearing Lifting Restrictions: none Dressing / Incision Call your doctor if you observe: Fever of 101 or Higher, Inability to urinate, Using more than 1 pad per hour (for more than 2 hours in a row or more), Shortness of breath, Dizziness, Chest pain and - (headache not controlled with tylenol, change in vision) Follow Up Care When: in 6 weeks for visit, call the office to make the appointment. If you had elevated blood pressures call the office to be seen within 1 week. Test Results: Test results from this visit will be discussed in further detail at your follow- up appointment, if applicable. Discharge Plan Admission Admit Date/Time: 08/16/22 07:20 Attending Provider: Penelope Yang Primary Care Provider: Care Physician,No Primary Discharge Orders/Prescriptions Prescriptions: No Action PNV no.104-AF-bh1-oyl-rxj-tthw 400 mcg-35 mg- 25 mg-5 mg tablet,chewable 1 tab PO DAILY Referrals / Follow Up: Care Physician,No Primary [Primary Care Provider] - Disposition Disposition (needs filled in before D/C Order can be placed): Home, Self Care 08/16/222234<Electronically signed by Penelope Yang MD>Penelope Yang MD CC: No Primary Care Physician ~ Signed [facility] Work Phone: 1(198) 234-845404-02-2023 Procedure [facility] 08-16-2022 Progress note Author Cristy Abreu [facility] August 16, 2022 7:11pm Note Date/Time August 16, 2022 7:02 pm [facility] Medical Records Department [address] [place] [address] Progress Note 08/16/22 1856 MR#: [id number] Acct: [id number] Name: CLAUDIA FARFAN Rep #:[id number] : 1995 26 From: Cristy Abreu CNM PCP: Care Physician,No Primary Status :ADM IN Location: [id number] Progress Note Patient comfortable with epidural current tracing: FHT: 135 Moderate variability reactive, occasional variable, category II tracing, overall reassuring [place]: Contractions q2-3 minutes, palpating moderate to strong. Pitocin at 6 mu SVE /-1 reviewed tracing abnormalities since last note: Prolonged deceleration with multiple nursing interventions. Pitocin discontinued, position changed and O2 on. resolved with interventions. Papo Yang aware of FHT. A/P: Continue with position changes Pitocin restarted per protocol Anticipate Procedures Urinary/Genital 52xxx-59xxx: No Charge 08/16/221910 <Electronically signed by Cristy Abreu CNM> Cristy Abreu CNM Cosigner Signature (if applicable): CC: ~ Signed [facility] Work Phone: 1(391) 728-653604-02-2023 Progress note Author Cristy Abreu [facility] August 16, 2022 2:20pm Note Date/Time August 16, 2022 2:20 pm [facility] Medical Records Department [address] [place] [address] Progress Note 08/16/22 1412 MR#: [id number] Acct: [id number] Name: CLAUDIA FARFAN MARLENE Rep #:[id number] : 1995 26 From: Cristy Abreu CNM PCP: Care Physician,No Primary Status :ADM IN Location: [id number] Progress Note Patient coping well with contractions. current tracing: FHT: 130 Moderate variability reactive no decelerations category I tracing [place]: Contractions every 1-4 minutes palpating moderate. Patient rating them a 2/10 on pain scale. Pitocin at 16mu AROM for large amount of clear fluid by Dr Yang, internals placed SVE /-2 reviewed tracing abnormalities since last note: Cat 1 strip A/P: Continue with current POC Continue position changes Increase pitocin per protocol Epidural PRN Anticipate Assessment & Plan Assessment/Plan (1) Elective induction of labor planned: (2) Supervision of normal first : (3) : QUALIFIERS: Weeks of gestation: 38 weeks Qualified Code(s): Z3A.38 - 38 weeks gestation of Procedures Urinary/Genital 52xxx-59xxx: No Charge 08/16/22 1420 <Electronically signed by Cristy Abreu CNM> Cristy Abreu CNM Cosigner Signature (if applicable): CC: ~ Signed [facility] Work Phone: [phone]) 404-668004-02-2023 History and physical note Author Cristy Abreu [facility] August 16, 2022 8:41am Note Date/Time August 16, 2022 8:41 am [facility] Medical Records Department [address] [place] [address] H&P 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 08/16/22823 MR#: [id number] Acct: [id number] Name: CLAUDIA FARFAN Rep #:[id number] : 1995 26 From: Cristy Abreu CNM PCP: Care Physician,No Primary Status :ADM IN Location: [place] [address] HPI - General General Date of Admission: 08/16/22 Date of Service: 08/16/22 HPI Narrative CLAUDIA FARFAN, is a 26 F at 39.2 weeks who presents for IOL for history ofobesity, abnormal genetic testing during , marginal insertion of umbilical cord, and gallbladder sludge Maternal Data Information THOMAS Calculator Estimated Delivery Date Method Current WG Current Estimate 08/21/22 LMP (Certain) 39w 2d Other Estimates 08/17/22 Ultrasound #1 39w 6d Final THOMAS: 08/21/22 Final THOMAS Source: US >20 weeks Gestational age: 39 weeks 2 days PFSH PFSH Home Medications PNV 153-FA 400 mcg-om3 35 mg-dha 25 mg-epa 5 mg-fish oil chew tablet 1 tab PO DAILY Check with primary doctor 01/13/22 [History Last Taken 07/24/22 08:00] Allergy/AdvReac Type Severity Reaction Status Date / Time No Known Allergies Allergy Verified 08/16/22 08:03 no significant family history Surgical History History of surgery History of surgery History of surgery Social History adopted: No household members: significant other and family housing: house current occupational status: employed 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 current occupational exposures/hazards: No pets and animals: Yes pets and animals: dog(s) history of recent travel: No sexually active: Yes Smoking Status: Never smoker second hand exposure: No alcohol intake: former details: rarely socially- Not while substance use type: does not use well-balanced diet: daily or most days caffeine: Yes Type: coffee Number of servings: 1 eating out: 1-3 times/week during the past year weight has: decreased > 10 lbs what type of physical activity do you participate in: none ronn/taoist: None seatbelt use: always do you feel safe at home: Yes additional social history: Boyfriend Pernell- Pest Control History 1 Elective abortions Hx Para 0 Spontaneous abortions Hx # Term Pregnancies Ectopic pregnancies Hx # Pregnancies Multiple births # of living children Visit Details Expected Delivery Route/Plan Labor Preferences- CB/BF classes: completing,thinking about just breath class labor support person:partner labor intervention preferences: [] pain management options preferred: [] cut cord/dad catch: [] :planning PP control planned: desires shorter interval . wants all children prior to 30 discussed possible routes of delivery and associated risks: special requests: [] Plans Covid status: discussed Flu vaccine: discussed Tdap vaccine: declined Rhogam: na LARC form signed: completed Problem list reviewed and updated with the most current plan of care details and appropriate orders placed. Relevant counseling for the gestational age provided. Continue routine care and follow up unless otherwise noted in visit notes/problem list details OB Flowsheet Initial Weight: Not Recorded Date -?-?-?-?-?-?-?-?-?-?-?-?- EGA Weight BP Urine Prot -?-?-?-?-?-?-?-?-?-?-?-?- Glucose FHR FuHt Pres Dilation -?-?-?-?-?-?-?-?-?-?-?-?- Effaced St Visit Note 01/20/22 -?-?-?-?-?-?-?-?-?-?-?-?- 9w 4d 219 lb 6 oz 125/82 -?-?-?-?-?-?-?-?-?-?-?-?- 171 -?-?-?-?-?-?-?-?-?-?-?-?- JV- CRL consiste nt with LMP. 02/16/22 -?-?-?-?-?-?-?-?-?-?-?-?- 13w 3d 218 lb 126/78 -?-?-?-?-?-?-?-?-?-?-?-?- 160 -?-?-?-?-?-?-?-?-?--?-?-?- SM- no vb crampi ng 03/16/22 -?-?-?-?-?-?-?-?-?-?-?-?- 17w 3d 217 lb 8 oz 128/76 Nega tive -?-?-?-?-?-?-?-?-?-?-?-?- Negative 156 -?-?-?-?-?-?-?-?-?-?-?-?- -No VB. Feels well. High fraction on NIPT-declines invasive testing. MFM US 04/0604/13/22 -?-?-?-?-?-?-?-?-?-?-?-?- 21w 3d 218 lb 138/76 Negative -?-?-?-?-?-?-?-?-?-?-?-?- Negative 140 21 -?-?-?-?-?-?-?-?-?-?-?-?- SM- no vb crampi ng discussed nipt and US results, still declines invasive testing, plan repeat US due to marginal insertion of cord and limited heart views. 05/12/22 -?-?-?-?-?-?-?-?-?-?-?-?- 25w 4d 221 lb 6 oz 128/68 Nega tive -?-?-?-?-?-?-?-?-?-?-?-?- Negative 161 25 -?-?-?-?-?-?-?-?-?-?-?-?- MH-No VB, LOF. G ood FM. MFM US for growth next week. 05/27/22 -?--?-?-?-?-?-?-?-?-?-?-?- 27w 5d 220 lb 6 oz 110/74 -?-?-?-?-?-?-?-?-?-?-?-?- 151 29 -?-?-?-?-?-?-?-?-?-?-?-?- LC- no concerns. no vb/ctx/lof. good fm. LC- no concerns. no vb/ctx/l of. good fm.28 week labs normal. larc completed. 06/08/22 -?-?-?-?-?-?-?-?-?-?-?-?- 29w 3d 222 lb 116/70 Negative -?-?-?-?-?-?--?-?-?-?-?-?- Negative 150 30 -?-?-?-?-?-?-?-?-?-?-?-?- - no vb lof go od fm no regular ctx declined tdap 06/22/22 -?-?-?-?-?-?-?-?-?-?-?-?- 31w 3d 225 lb 112/67 Negative -?-?-?-?-?-?-?-?-?-?-?-?- Negative 145 32 -?-?-?-?-?-?-?-?-?-?-?-?- Lc- no vb/ctx/lo f. good fm. to start NST next week. growth scan at 65% 06/29/22 -?-?-?-?-?-?-?-?-?-?-?-?- 32w 3d 225 lb 6 oz 108/66 Nega tive -?-?-?-?-?-?-?-?-?-?-?-?- Negative 140 -?-?-?-?-?-?-?-?-?-?-?-?- -NST only reac tive. New rash on abdomen only/itching. Labs ordered. 07/06/22 -?-?-?-?-?-?-?-?-?-?-?-?- 33w 3d 224 lb 8 oz 111/73 Nega tive -?-?-?-?-?-?-?-?-?-?-?-?- Negative 130 -?-?-?-?-?-?-?-?-?-?-?-?- SM- no vb lof go od fm no regular ctx 07/13/22 -?-?-?-?-?-?-?-?-?-?-?-?- 34w 3d 228 lb 4 oz 118/78 Nega tive -?-?-?-?-?-?-?-?-?-?-?-?- Negative 130 -?-?-?-?-?-?-?-?-?-?-?-?- MH-NST only reac tive 07/20/22 -?-?-?-?-?-?-?-?-?-?-?-?- 35w 3d 229 lb 113/72 Negative -?-?-?-?-?-?-?-?-?-?-?-?- Negative 130 -?-?-?-?-?-?-?-?-?-?-?-?- LC- reactive NST , no concerns. has appt with MFM for growth scan end of july. good fm, no ctx, lof/vb. 07/27/22 -?-?-?-?-?-?-?-?-?-?-?-?- 36w 3d 228 lb 6 oz 126/74 -?-?-?--?-?-?-?-?-?-?-?-?- 130 -?-?-?-?-?-?-?-?-?-?-?-?- LC- reactive NST . +contractions on monitor, pt not feeling these. good fm, no lof/vb. GBS negative. is on abx for presumed pyelonephritis. on low fat diet for gallbladder sludge. 08/03/22 -?-?-?-?-?-?-?-?-?-?-?-?- 37w 3d 225 lb 2 oz 120/84 Nega tive -?-?-?-?-?-?-?-?-?-?-?-?- Negative 136 37 -?-?-?-?-?-?-?-?-?-?-?-?- MH-No VB, LOF. g ood FM. Reactive NST. Growth US 08/0408/10/22 -?-?-?-?-?-?-?-?-?-?-?-?- 38w 3d 228 lb 8 oz 116/77 Nega tive -?-?-?-?-?-?-?-?-?-?-?-?- Negative 130 38 Cephalic 1 .5 -?-?-?-?-?-?-?-?-?-?-?-?- 50 -3 SM- no vb lof good fm n oregular ctx discussed IOL vs exp management NST FHR Rate Baby A Baseline: 135 Variability:: Moderate Accelerations:: 15 x 15 Decelerations:: None NST Reactive:: Yes FHR Category:: Category I Uterine Activity:: irregular ROS Constitutional Constitutional: Denies change in weight, fatigue, fever(s), headache(s), poor appetite or weakness Eyes Eyes: Denies blurry vision, change in vision, floaters, seeing flashes or spots in vision ENT HEENT: Denies dizziness, headache(s), loss taste/smell or sore throat Cardiovascular Cardiovascular: Denies chest pain, dizziness, dyspnea, irregular heart rhythm, lightheadedness, palpitations or rapid heart rate Respiratory/Chest Respiratory/Chest: Denies change in mental status, chest tightness, cough, dyspnea or breast pain Gastrointestinal Gastrointestinal: Denies anorexia, chewing difficulty, constipation, diarrhea or weight changes Genitourinary Genitourinary: Denies difficulty urinating, dysuria, flank pain, genital pain, urinary frequency or urinary urgency Musculoskeletal Musculoskeletal: Denies back pain, difficulty walking, extremity pain, joint pain, muscle cramps or muscle weakness Integumentary Integumentary: Denies lesions or unusual bruising Neurologic Neurologic: Denies abnormal movements, abnormal speech, dizziness, numbness, seizure-like activity, syncope or weakness Psychiatric Psychiatric: Denies behavioral changes, change in appetite, confusion, depression, homicidal ideation, suicidal ideation or suicidal thoughts Endocrine Endocrinology: Denies excessive sweating, polydipsia or polyuria Hematologic/Lymphatic Hematologic/Lymphatic: Denies anemia Allergic/Immunologic Allergic/Immunologic: Denies itchy eyes, lip swelling, throat swelling, tongue swelling or wheezing Vital Signs Vital Signs Vital Signs: 08/16/22 07:58 08/16/22 07:58 08/16/22 07:58 Temperature 97.9 F Temperature Source Pulse Rate 92 Blood Pressure 114/70 BP Systolic 114 BP Diastolic 70 08/16/22 07:58 Temperature Temperature Source Temporal Pulse Rate Blood Pressure BP Systolic BP Diastolic Weight Weight: 230 lb Body Mass Index (BMI) 40.7 Physical Exam Const alert, oriented x3 and no apparent distress General Appearance: cooperative Orientation / Consciousness: awake HEENT normocephalic Neck full ROM Lymph Lymphatic: no lymphadenopathy noted Resp normal respiratory effort and normal air movement Effort and Inspection: able to speak in complete sentences and symmetric chest movement GI soft to palpation and non-tender Inspection: gravid Palpation: soft; Negative for tender external exam normal Manual OB Exam: estimated gestational size appropriate, presentation cephalic, dilated 3, effaced 70 and station -3 Back/Spine normal to inspection Extremity normal to inspection and full ROM Skin no rashes or lesions noted Psych mental status grossly normal Appearance: grossly normal Speech: normal speech Labs Labs Labs: Blood Type A POSITIVE Antibody Screen NEGATIVE Hct 36.4 % (37-47) L Hgb 12.1 g/dL (12.0-15.0) Syphilis Total Ab Non-reactive Rubella IgG Antibody Reactive (Nonreactive) Hep Bs Antigen Non-Reactive (Nonreactive) Chlamydia DNA (ABBY) Negative (Negative) Neisseria gonorrhoeae DNA (ABBY) Negative (Negative) HIV 1&2 Antibody Non-Reactive (Nonreactive) Glucose 1 Hr 50 gm 100 mg/dL (70-140) Group B Strep DNA Negative (Negative) Miscellaneous Test Assessment & Plan (1) Elective induction of labor planned: PLAN: Patient presents IOL, plan management for with pitocin/AROM. Pain management: plans epidural. GBS negative. Management of any complications: Pupp rash, obesity, abnormal genetic test during , review problem list I have reviewed the [facility] and made any clinically relevant updates. (2) : QUALIFIERS: Weeks of gestation: 38 weeks Qualified Code(s): Z3A.38 - 38 weeks gestation of COMMENT: GBS NEG, high risk NIPT due to DNA fraction MFM referral sent, Carrier neg. , nl GCT. nl anatomy (3) Supervision of normal first : COMMENT: PRR , THOMAS 08/21/22, boy BF - Pernell (4) Obesity affecting : COMMENT: 1 TM GCT (5) Abnormal genetic test during : COMMENT: high risk fraction, declines invasive genetic testing. recommend weekly nsts after 32 and growth us q 4 weeks,07/06 nl growth-48% (6) Marginal insertion of umbilical cord: COMMENT: weekly nsts. growth us q 4 weeks. (7) Pyelonephritis affecting : COMMENT: afebrile, VSS obtaining CBC and renal ultrasound.ultrasound negative for calculi. s/p tylenol and pyridium 2g ancef, will transition to keflex outpatient. (8) Gallbladder sludge: COMMENT: low fat diet nutrition consult. (9) PUPP (pruritic urticarial papules and plaques of ): COMMENT: rash just abdomen. Labs nl Charges/Coding Procedures Urinary/Genital 52xxx-59xxx: No Charge 08/16/22 0841 <Electronically signed by Cristy Abreu CNM> Cosigner Signature (if applicable): CC: DEEPAK Abreu; No Primary Care Physician~ Signed [facility] Work Phone: 1([phone]) 718-141003-14-2023 Hospital Discharge instructions Additional Instructions Take antibiotic as ordered. 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 +fm, no lof/vb. uriah every 2-3 minutes. 8/10 pain. urine dip with +leukocytes, no heme, no nitrates Maternal Data Information THOMAS Calculator Estimated Delivery Date Method Current WG Current Estimate 08/21/22 LMP (Certain) 36w 0d Other Estimates 08/17/22 Ultrasound #1 36w 4d PFSH PFSH Home Medications PNV 153-FA 400 mcg-om3 35 mg-dha 25 mg-epa 5 mg-fish oil chew tablet 1 tab PO DAILY 01/13/22 [History Last Taken 07/24/22 08:00] nitrofurantoin monohydrate/macrocrystals 100 mg capsule (Macrobid) 100 mg PO Q12H 5 days #10 caps 07/24/22 [Rx Last Taken Unknown] Allergy/AdvReac Type Severity Reaction Status Date / Time No Known Allergies Allergy Verified 07/24/22 14:52 Social History adopted: No household members: significant other and family housing: house current occupational status: employed 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 current occupational exposures/hazards: No pets and animals: Yes pets and animals: dog(s) history of recent travel: No sexually active: Yes Smoking Status: Never smoker second hand exposure: No alcohol intake: former details: rarely socially- Not while substance use type: does not use well-balanced diet: daily or most days caffeine: Yes Type: coffee Number of servings: 1 eating out: 1-3 times/week during the past year weight has: decreased > 10 lbs what type of physical activity do you participate in: none ronn/taoist: None seatbelt use: always do you feel safe at home: Yes additional social history: Boyfriend Pernell- Pest Control History 1 Elective abortions Hx Para 0 Spontaneous abortions Hx # Term Pregnancies Ectopic pregnancies Hx # Pregnancies Multiple births # of living children Visit Details Expected Delivery Route/Plan Labor Preferences- CB/BF classes: completing,thinking about just breath class labor support person:partner labor intervention preferences: [] pain management options preferred: [] cut cord/dad catch: [] :planning PP control planned: desires shorter interval . wants all children prior to 30 discussed possible routes of delivery and associated risks: special requests: [] Plans Covid status: discussed Flu vaccine: discussed Tdap vaccine: declined Rhogam: na LARC form signed: completed Problem list reviewed and updated with the most current plan of care details and appropriate orders placed. Relevant counseling for the gestational age provided. Continue routine care and follow up unless otherwise noted in visit notes/problem list details OB Flowsheet Initial Weight: Not Recorded Date -?-?-?-?-?-?-?-?-?-?-?-?- EGA Weight BP Urine Prot -?-?-?-?-?-?-?-?-?--?-?-?- Glucose FHR FuHt Pres Dilation -?-?-?-?-?-?-?-?-?-?-?-?- Effaced St Visit Note 01/20/22 -?-?-?-?-?-?-?-?-?-?-?-?- 9w 4d 219 lb 6 oz 125/82 -?-?-?-?-?-?-?-?-?-?-?-?- 171 -?-?-?-?-?-?-?-?-?-?-?-?- JV- CRL consiste nt with LMP. 02/16/22 -?-?-?-?-?-?-?-?-?-?-?-?- 13w 3d 218 lb 126/78 -?-?-?-?-?-?-?-?-?-?-?-?- 160 -?-?-?-?-?-?-?-?-?-?-?-?- SM- no vb crampi ng 03/16/22 -?-?-?-?-?-?-?-?-?-?-?-?- 17w 3d 217 lb 8 oz 128/76 Nega tive -?-?-?-?-?-?-?-?-?-?-?-?- Negative 156 -?-?-?-?-?-?-?-?-?-?-?-?- MH-No VB. Feels well. High fraction on NIPT-declines invasive testing. MF US 04/0604/13/22 -?-?-?-?-?-?-?-?-?-?-?-?- 21w 3d 218 lb 138/76 Negative -?-?-?-?-?-?-?-?-?-?-?-?- Negative 140 21 -?-?-?-?-?-?-?-?-?-?-?-?- SM- no vb abe kiser discussed nipt and US results, still declines invasive testing, plan repeat US due to marginal insertion of cord and limited heart views. 05/12/22 -?-?-?-?-?-?-?-?-?-?-?-?- 25w 4d 221 lb 6 oz 128/68 Nega tive -?-?-?-?-?-?-?-?-?-?-?-?- Negative 161 25 -?-?-?-?-?-?-?-?-?-?-?-?- MH-No VB, LOF. G ood FM. [facility] US for growth next week. 05/27/22 -?-?-?-?-?-?-?-?-?-?-?-?- 27w 5d 220 lb 6 oz 110/74 -?-?-?-?-?-?-?-?-?-?-?-?- 151 29 -?-?-?-?-?-?-?-?-?-?-?-?- LC- no concerns. no vb/ctx/lof. good fm. LC- no concerns. no vb/ctx/l of. good fm.28 week labs normal. larc completed. 06/08/22 -?-?-?-?-?-?-?-?-?-?-?-?- 29w 3d 222 lb 116/70 Negative -?-?-?-?-?-?-?-?-?-?-?-?- Negative 150 30 -?-?-?-?-?-?-?-?-?-?-?-?- SM- no vb lof go od fm no regular ctx declined tdap 06/22/22 -?-?-?-?-?-?-?-?-?-?-?-?- 31w 3d 225 lb 112/67 Negative -?-?-?-?-?-?-?-?-?-?-?-?- Negative 145 32 -?-?-?-?-?-?-?-?-?-?-?-?- Lc- no vb/ctx/lo f. good fm. to start NST next week. growth scan at 65% 06/29/22 -?-?-?-?-?-?-?-?-?-?-?-?- 32w 3d 225 lb 6 oz 108/66 Nega tive -?-?-?-?-?-?-?-?-?-?-?-?- Negative 140 -?-?-?-?-?-?-?-?-?-?-?-?- MH-NST only reac tive. New rash on abdomen only/itching. Labs ordered. 07/06/22 -?-?-?-?-?-?-?-?-?-?-?-?- 33w 3d 224 lb 8 oz 111/73 Nega tive -?-?-?-?-?-?-?-?-?-?-?-?- Negative 130 -?-?-?-?-?-?-?-?-?-?-?-?- SM- no vb lof go od fm no regular ctx 07/13/22 -?-?-?-?-?-?-?-?-?-?-?-?- 34w 3d 228 lb 4 oz 118/78 Nega tive -?-?-?-?-?-?-?-?-?-?-?-?- Negative 130 -?-?-?-?-?-?-?-?-?-?-?-?- MH-NST only reac tive 07/20/22 -?-?-?-?-?-?-?-?-?-?-?-?- 35w 3d 229 lb 113/72 Negative -?-?-?-?-?-?-?-?-?-?-?-?- Negative 130 -?-?-?-?-?-?-?-?-?-?-?-?- LC- reactive NST , no concerns. has appt with MFM for growth scan end of july. good fm, no ctx, lof/vb. NST FHR Rate Baby A Baseline: 125 Variability:: Moderate Accelerations:: 15 x 15 Decelerations:: None NST Reactive:: Yes FHR Category:: Category I Uterine Activity:: q2-3 ROS Cardiovascular Cardiovascular: Denies abdominal pain, chest pain, diaphoresis or dyspnea Genitourinary Genitourinary: Reports change in urinary stream Musculoskeletal Musculoskeletal: Reports none Integumentary Integumentary: Reports none Neurologic Neurologic: Reports none Psychiatric Psychiatric: Reports none Endocrine Endocrinology: Reports none Hematologic/Lymphatic Hematologic/Lymphatic: Reports none Allergic/Immunologic Allergic/Immunologic: Reports none Vital Signs Vital Signs Vital Signs: 07/24/22 14:57 07/24/22 14:57 07/24/22 14:57 Temperature Temperature Source Temporal Pulse Rate 77 Blood Pressure 127/67 H BP Systolic 127 BP Diastolic 67 07/24/22 14:57 Temperature 97.9 F Temperature Source Pulse Rate Blood Pressure BP Systolic BP Diastolic Weight Weight: 231 lb 7.766 oz Body Mass Index (BMI) 41.0 Physical Exam Const alert, oriented x3 and no apparent distress General Appearance: cooperative, comfortable and well kempt Orientation / Consciousness: awake and oriented to person Exam Limitations: no limitations HEENT normocephalic Neck full ROM Chest inspection of chest normal Resp normal respiratory effort, normal air movement and no retractions Effort and Inspection: able to speak in complete sentences and symmetric chest movement Cardio regular rate Peripheral Pulses: pulses 2+ throughout GI normal to inspection, nondistended, normoactive bowel sounds Inspection: gravid Manual OB Exam: estimated gestational size appropriate and presentation cephalic Uterus Palpation: Negative for uterus tender Back/Spine General Back: tenderness Extremity normal to inspection General Extremity: Negative for calf tenderness Skin no rashes or lesions noted Neuro moves all extremities Psych mental status grossly normal Activity / Motor Behavior: appropriate eye contact Speech: normal speech Labs Labs Labs: Blood Type A POSITIVE Antibody Screen NEGATIVE Hct 41.3 % (37-47) Hgb 13.9 g/dL (12.0-15.0) Syphilis Total Ab Non-reactive Rubella IgG Antibody Reactive (Nonreactive) Hep Bs Antigen Non-Reactive (Nonreactive) Chlamydia DNA (ABBY) Negative (Negative) Neisseria gonorrhoeae DNA (ABBY) Negative (Negative) HIV 1&2 Antibody Non-Reactive (Nonreactive) Glucose 1 Hr 50 gm 100 mg/dL (70-140) Group B Strep DNA Pending Miscellaneous Test Assessment & Plan (1) Renal calculus: COMMENT: afebrile, VSS obtaining CBC and renal ultrasound s/p tylenol and pyridium 2g ancef, will transition to keflex outpatient. PLAN: -1L LR bolus -morphine 4mg IVP (2) Marginal insertion of umbilical cord: COMMENT: weekly nsts. growth us q 4 weeks. (3) Abnormal genetic test during : COMMENT: high risk fraction, declines invasive genetic testing. recommend weekly nsts after 32 and growth us q 4 weeks,07/06 nl growth-48% (4) Obesity affecting : COMMENT: 1 TM GCT (5) Supervision of normal first : COMMENT: PRR , THOMAS 08/21/22, boy BF - Pernell (6) : QUALIFIERS: Weeks of gestation: 35 weeks Qualified Code(s): Z3A.35 - 35 weeks gestation of COMMENT: high risk NIPT due to DNA fraction MFM referral sent, Carrier neg. , nl GCT. nl anatomy (7) Seasonal allergies: COMMENT: grass, pollen, cat dander PLAN: Plan admit to observation status for r/o renal stones vs early labor obtain labor admission labs during IV start GBS screening Dr. Murray updated on exam and poc. will add 2g Ancef for suspected kidney stone with leukocytes. 07/24/22 4991 <Electronically signed by Rina Mead CNM> Cosigner Signature (if applicable): CC: DEEPAK Mead; No Primary Care Physician~ Signed [facility] Work Phone: 1(304) 646-578909-06-2022 NotePap Smear Specimen AdequacySeptember 2021 4:49pmComment.Satisfactory for evaluation. Endocervical and/or squamous metaplasticcells (endocervical component)are present.[facility] INTERFACED A#[id number] [facility]an Hospital Work Phone: Comment on above:Satisfactory for evaluation. Endocervical and/or squamous metaplasticcells (endocervical component)are present.01-20-2022 NotePap Smear QC ReviewSeptember 2021 4:49pmComment. Marnie Cody, Supervisory Diaphragm Builder (ASCP)[facility] INTERFACED A#[id number] [facility] Work Phone: Comment on above:Marnie Cody, Supervisory Diaphragm Builder (ASCP)Evaluation note* Diagnosis Onset Date Resolution Status acute Seasonal allergies acute Supervision of normal first acute [facility] Work Phone: Evaluation note* Diagnosis Onset Date Resolution Status Abnormal genetic test during acute Obesity affecting acute acute Seasonal allergies acute Supervision of normal first acute Abnormal genetic test during acute Obesity affecting acute acute Supervision of normal first acute Abnormal genetic test during acute Marginal insertion of umbilical cord acute Obesity affecting acute acute Seasonal allergies acute Supervision of normal first acute Abnormal genetic test during acute Marginal insertion of umbilical cord acute Obesity affecting acute acute Supervision of normal first acute Abnormal genetic test during acute Marginal insertion of umbilical cord acute Obesity affecting acute acute Seasonal allergies acute Supervision of normal first acute Abnormal genetic test during acute Marginal insertion of umbilical cord acute Obesity affecting acute acute Seasonal allergies acute Supervision of normal first acute [facility] Work Phone: Evaluation note* Diagnosis Onset Date Resolution Status Abnormal genetic test during acute Obesity affecting acute acute Supervision of normal first acute Abnormal genetic test during acute Marginal insertion of umbilical cord acute Obesity affecting acute acute Seasonal allergies acute Supervision of normal first acute Abnormal genetic test during acute Marginal insertion of umbilical cord acute Obesity affecting acute acute Supervision of normal first acute Abnormal genetic test during acute Marginal insertion of umbilical cord acute Obesity affecting acute acute Seasonal allergies acute Supervision of normal first acute Abnormal genetic test during acute Marginal insertion of umbilical cord acute Obesity affecting acute acute Seasonal allergies acute Supervision of normal first acute Abnormal genetic test during acute Marginal insertion of umbilical cord acute Obesity affecting acute acute Seasonal allergies acute Supervision of normal first acute Marginal insertion of umbilical cord acute acute PUPP (pruritic urticarial pa pules and plaques of ) acute Supervision of normal first acute Abnormal genetic test during acute Marginal insertion of umbilical cord acute Obesity affecting acute acute PUPP (pruritic urticarial pa pules and plaques of ) acute Seasonal allergies acute Supervision of normal first acute [facility] Work Phone: Evaluation note* Diagnosis Onset Date Resolution Status Abnormal genetic test during acute Marginal insertion of umbilical cord acute Obesity affecting acute acute Seasonal allergies acute Supervision of normal first acute Abnormal genetic test during acute Marginal insertion of umbilical cord acute Obesity affecting acute acute Supervision of normal first acute Abnormal genetic test during acute Marginal insertion of umbilical cord acute Obesity affecting acute acute Seasonal allergies acute Supervision of normal first acute Abnormal genetic test during acute Marginal insertion of umbilical cord acute Obesity affecting acute acute Seasonal allergies acute Supervision of normal first acute Abnormal genetic test during acute Marginal insertion of umbilical cord acute Obesity affecting acute acute Seasonal allergies acute Supervision of normal first acute Marginal insertion of umbilical cord acute acute PUPP (pruritic urticarial pa pules and plaques of ) acute Supervision of normal first acute Abnormal genetic test during acute Marginal insertion of umbilical cord acute Obesity affecting acute acute PUPP (pruritic urticarial pa pules and plaques of ) acute Seasonal allergies acute Supervision of normal first acute Abnormal genetic test during acute Marginal insertion of umbilical cord acute Obesity affecting acute acute Supervision of normal first acute Abnormal genetic test during acute Marginal insertion of umbilical cord acute Obesity affecting acute acute PUPP (pruritic urticarial pa pules and plaques of ) acute Seasonal allergies acute Supervision of normal first acute Abnormal genetic test during acute Marginal insertion of umbilical cord acute Obesity affecting acute acute Renal calculus acute Seasonal allergies acute Supervision of normal first acute [facility] Work Phone: Evaluation note* Diagnosis Onset Date Resolution Status Abnormal genetic test during acute Marginal insertion of umbilical cord acute Obesity affecting acute acute Seasonal allergies acute Supervision of normal first acute Abnormal genetic test during acute Marginal insertion of umbilical cord acute Obesity affecting acute acute Supervision of normal first acute Abnormal genetic test during acute Marginal insertion of umbilical cord acute Obesity affecting acute acute Seasonal allergies acute Supervision of normal first acute Abnormal genetic test during acute Marginal insertion of umbilical cord acute Obesity affecting acute acute Seasonal allergies acute Supervision of normal first acute Abnormal genetic test during acute Marginal insertion of umbilical cord acute Obesity affecting acute acute Seasonal allergies acute Supervision of normal first acute Marginal insertion of umbilical cord acute acute PUPP (pruritic urticarial pa pules and plaques of ) acute Supervision of normal first acute Abnormal genetic test during acute Marginal insertion of umbilical cord acute Obesity affecting acute acute PUPP (pruritic urticarial pa pules and plaques of ) acute Seasonal allergies acute Supervision of normal first acute Abnormal genetic test during acute Marginal insertion of umbilical cord acute Obesity affecting acute acute Supervision of normal first acute Abnormal genetic test during acute Marginal insertion of umbilical cord acute Obesity affecting acute acute PUPP (pruritic urticarial pa pules and plaques of ) acute Seasonal allergies acute Supervision of normal first acute Abnormal genetic test during acute Marginal insertion of umbilical cord acute Obesity affecting acute acute Seasonal allergies acute Supervision of normal first acute Abnormal genetic test during acute Gallbladder sludge acute Marginal insertion of umbilical cord acute Obesity affecting acute acute PUPP (pruritic urticarial pa pules and plaques of ) acute Pyelonephritis affecting acute Seasonal allergies acute Supervision of normal first acute [facility] Work Phone: Evaluation note* Diagnosis Onset Date Resolution Status Abnormal genetic test during acute Marginal insertion of umbilical cord acute Obesity affecting acute acute Seasonal allergies acute Supervision of normal first acute Abnormal genetic test during acute Marginal insertion of umbilical cord acute Obesity affecting acute acute Supervision of normal first acute Abnormal genetic test during acute Marginal insertion of umbilical cord acute Obesity affecting acute acute Seasonal allergies acute Supervision of normal first acute Abnormal genetic test during acute Marginal insertion of umbilical cord acute Obesity affecting acute acute Seasonal allergies acute Supervision of normal first acute Abnormal genetic test during acute Marginal insertion of umbilical cord acute Obesity affecting acute acute Seasonal allergies acute Supervision of normal first acute Marginal insertion of umbilical cord acute acute PUPP (pruritic urticarial pa pules and plaques of ) acute Supervision of normal first acute Abnormal genetic test during acute Marginal insertion of umbilical cord acute Obesity affecting acute acute PUPP (pruritic urticarial pa pules and plaques of ) acute Seasonal allergies acute Supervision of normal first acute Abnormal genetic test during acute Marginal insertion of umbilical cord acute Obesity affecting acute acute Supervision of normal first acute Abnormal genetic test during acute Marginal insertion of umbilical cord acute Obesity affecting acute acute PUPP (pruritic urticarial pa pules and plaques of ) acute Seasonal allergies acute Supervision of normal first acute Abnormal genetic test during acute Gallbladder sludge acute Marginal insertion of umbilical cord acute Obesity affecting acute acute PUPP (pruritic urticarial pa pules and plaques of ) acute Pyelonephritis affecting acute Seasonal allergies acute Supervision of normal first acute Abnormal genetic test during acute Marginal insertion of umbilical cord acute Obesity affecting acute acute Seasonal allergies acute Supervision of normal first acute [facility] Work Phone: Evaluation note* Diagnosis Onset Date Resolution Status Abnormal genetic test during resolved Marginal insertion of umbilical cord resolved Obesity affecting resolved resolved Supervision of normal first resolved Abnormal genetic test during resolved Marginal insertion of umbilical cord resolved Obesity affecting resolved resolved Seasonal allergies resolved Supervision of normal first resolved Abnormal genetic test during resolved Marginal insertion of umbilical cord resolved Obesity affecting resolved resolved Seasonal allergies resolved Supervision of normal first resolved Abnormal genetic test during resolved Marginal insertion of umbilical cord resolved Obesity affecting resolved resolved Seasonal allergies resolved Supervision of normal first resolved Marginal insertion of umbilical cord resolved resolved PUPP (pruritic urticarial pa pules and plaques of ) resolved Supervision of normal first resolved Abnormal genetic test during resolved Marginal insertion of umbilical cord resolved Obesity affecting resolved resolved PUPP (pruritic urticarial pa pules and plaques of ) resolved Seasonal allergies resolved Supervision of normal first resolved Abnormal genetic test during resolved Marginal insertion of umbilical cord resolved Obesity affecting resolved resolved Supervision of normal first resolved Abnormal genetic test during resolved Marginal insertion of umbilical cord resolved Obesity affecting resolved resolved PUPP (pruritic urticarial pa pules and plaques of ) resolved Seasonal allergies resolved Supervision of normal first resolved Abnormal genetic test during resolved Marginal insertion of umbilical cord resolved Obesity affecting resolved resolved Seasonal allergies resolved Supervision of normal first resolved Abnormal genetic test during resolved Gallbladder sludge resolved Marginal insertion of umbilical cord resolved Obesity affecting resolved resolved PUPP (pruritic urticarial pa pules and plaques of ) resolved Pyelonephritis affecting resolved Seasonal allergies resolved Supervision of normal first resolved Abnormal genetic test during resolved Marginal insertion of umbilical cord resolved Obesity affecting resolved resolved PUPP (pruritic urticarial pa pules and plaques of ) resolved Pyelonephritis affecting resolved Supervision of normal first resolved Abnormal genetic test during resolved Gallbladder sludge resolved Marginal insertion of umbilical cord resolved Obesity affecting resolved resolved PUPP (pruritic urticarial pa pules and plaques of ) resolved Pyelonephritis affecting resolved Seasonal allergies resolved Supervision of normal first resolved Vaginal delivery acute Abnormal genetic test during resolved Elective induction of labor planned resolved Gallbladder sludge resolved Marginal insertion of umbilical cord resolved Obesity affecting resolved resolved PUPP (pruritic urticarial pa pules and plaques of ) resolved Pyelonephritis affecting resolved Seasonal allergies resolved Supervision of normal first resolved [facility] Work Phone: Evaluation note* Diagnosis Onset Date Resolution Status Cholelithiasis acute Gallbladder sludge acute [facility] Work Phone: Evaluation note* Diagnosis Acute laryngitis- Primary Acute sinusitis, recurrence not specified, unspecified location documented in this encounter [facility] Work Phone: Evaluation note* Diagnosis MADDIE (generalized anxiety disorder) Generalized anxiety disorder [facility] Diagnosis MADDIE (generalized anxiety disorder)- Primary Generalized anxiety disorder Urinary frequency Incomplete bladder emptying Acute pain of left knee [facility] Diagnosis MADDIE (generalized anxiety disorder)- Primary Generalized anxiety disorder Tremor Abnormal involuntary movements Screening for lipid disorders Psoriasis of scalp Other psoriasis [facility] Diagnosis Acute cough- Primary Acute URI Acute upper respiratory infections of unspecified site Sinus drainage Other diseases of nasal cavity and sinuses PND (post-nasal drip) Postnasal drip 16 weeks gestation of state, incidental documented in this encounter [facility] Discharge instructions Additional Instructions Thank you for trusting us with your care today! Please take Tylenol (2 pills, 650 mg), ibuprofen (2 pills, 400 mg) every 6 hours as needed for pain and fever control. If this does not control your pain please take oxycodone as needed. Please take Zofran as needed for nausea. Please return to the emergency department if your symptoms change or worsen. Please follow with your general surgeon for further outpatient evaluation and management.[facility] Work Phone: Progress note Author Evelyn Lema [facility] Note Date/Time October 02, 2024 9:28a m [facility] [address] [place] [address], [address] [place] [address] OFFICE VISIT Date of Service: 10/02/24 MR#: [id number] Acct: [id number] Name: CLAUDIA FARFAN MARLENE Rep #: [id number] : 1995 Provider: Dr. Maribel Villa, DO Age/Sex: 28/F Location: [facility] [place] Status: Signed Intake Vital Signs 08/21/24 08:34 09/20/24 09:57 10/02/24 09:02 10/02/24 09:03 Height 5 ft 3 in 5 ft 3 in 5 ft 3 in 5 ft 3 in Weight: 230 lb BMI 40.7 BP 124/76 H Intake Visit Reasons: 32wk ob Seismograph Recorder Required: No Is patient in pain?: No Allergies No Known Allergies Allergy (Verified 10/02/24 09:02) Medications ?Medication ?Instructions ?Recorded ?Confirmed ?Type folic acid 800 mcg tablet 0.8 mg PO DAILY 10/05/22 History ascorbic acid (vitamin C) 500 mg 500 mg PO DAILY 02/2310/02/24 History tablet (C-500) magnesium 200 mg tablet 200 mg PO DAILY 02/23/23 History omega-3 fatty acids 500 mg PO DAILY 02/23/23 History PNV 153-FA 400 mcg-om3 35 mg-dha tab PO DAILY 04/18/24 10/02/24 History 25 mg-epa 5 mg-fish oil chew tablet cholecalciferol (vitamin D3) 25 4,000 unit PO DAILY 10/02/24 History mcg (1,000 unit) capsule ondansetron 4 mg disintegrating 4 mg PO Q8H PRN nausea and 07/03/24 10/02/24 Rx tablet vomiting #30 tabs Last Menstrual Period: 02/23/24 Zika: Zika virus screening: Negative : No PFSH PFSH Medical History Postoperative abdominal pain Wears contact lenses Wears glasses Non-smoker Cholelithiasis Gallbladder sludge Gallbladder attack Vaginal delivery Surgical History S/P cholecystectomy History of surgery History of surgery History of surgery Family History Mother Asthma Grandfather Heart disease Maternal Hypertension Maternal CVA (cerebral vascular accident) Maternal Thyroid disorder Maternal Social History adopted: No household members: significant other, family and children housing: house number of children: 1 current occupational status: employed 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 current occupational exposures/hazards: No pets and animals: Yes pets and animals: dog(s) history of recent travel: No sexually active: Yes Smoking Status: Never smoker second hand exposure: No alcohol intake: current details: rarely socially- Not while substance use type: does not use well-balanced diet: daily or most days caffeine: Yes (Energy drink 200mg) Type: other Number of servings: 1 eating out: 1-3 times/week during the past year weight has: decreased > 10 lbs what type of physical activity do you participate in: none ronn/taoist: None seatbelt use: always do you feel safe at home: Yes additional social history: Boyfriend Pernell- Pest Control History 2 Elective abortions Hx Para 1 Spontaneous abortions Hx # Term Pregnancies 1 Ectopic pregnancies Hx # Pregnancies Multiple births # of living children 1 Past Pregnancies Del. Date Name GA/Weeks Outcome Route Bth Weight Infant Gen Labor Lgth Anesthesia Del Locatn Provider FOB 08/16/22 Singh 39 live - full term 7# 3oz Male [facility]/SM Delivery Date: 08/16/22 Last Updated by: Jovana Jon IOL abnl. NIPT HPI 32wk ob Details: CLAUDIA FARFAN is a 28 year old who presents for routine OB visit. OB Visit THOMAS Calculator Estimated Delivery Date Method Current WG Current Estimate 11/29/24 LMP (Certain) 31w 5d Other Estimates 11/29/24 Ultrasound #1 31w 5d Expected Delivery Route/Plan Labor Preferences- CB/BF classes: no labor support person: Pernell labor intervention preferences: [] pain management options preferred: epidural cut cord/dad catch: cord : yes PP control planned: discussed discussed possible routes of delivery and associated risks: [] special requests: [] Specific Issue/Plans Covid status: [] Flu vaccine: [] Tdap vaccine: declines Rhogam: NA LARC form signed: yes Problem list reviewed and updated with the most current plan of care details and appropriate orders placed. Relevant counseling for the gestational age provided. Continue routine care and follow up unless otherwise noted in visit notes/problem list details Initial Weight: 217 lb Date -?-?-?--?-?-?-?-?-?-?-?-?- EGA Weight BP Urine Prot -?-?-?-?-?-?-?-?-?-?-?-?- Glucose FHR FuHt Pres Dilation -?-?-?-?-?-?-?-?-?-?-?-?- Effaced St Visit Note 04/24/24 -?-?-?-?-?-?-?-?-?-?-?-?- 8w 5d 217 lb (+0 oz) 119/74 -?-?-?-?-?-?-?-?-?-?-?-?- 195 -?-?-?-?-?-?-?-?-?-?-?-?- JV- CRL matches LMP. Declines nipt. afia sent for morning sickness. RTo in 4 weeks. 05/24/24 -?-?-?-?-?-?-?-?-?-?-?-?- 13w 0d 216 lb (-16 oz) 116/72 Negative -?-?-?-?-?-?-?-?-?-?-?-?- Negative 171 -?-?-?-?-?-?-?-?--?-?-?-?- -No VB. Nausea controlled with zofran. Br US confirm FHT 06/26/24 -?-?-?-?-?-?-?-?-?-?-?-?- 17w 5d 215 lb 2 oz (-1 lb 14 oz) 119/76 Negative -?-?-?-?-?-?-?-?-?-?-?-?- Negative 165 -?-?-?-?-?-?-?-?-?-?-?-?- KW- no vb/crampi ng. possible flutters. nausea at night but doing well. anatomy US scheduled. 07/28/24 -?-?-?-?-?-?-?-?-?-?-?-?- 22w 2d 222 lb (+5 lb) 110/72 Negative -?-?-?-?-?-?-?-?-?-?-?-?- Negative 155 22 -?-?-?-?-?-?-?-?-?-?-?-?- - no vb/crampi ng. feeling movement. has obtained follow up scans. 08/21/24 -?-?-?-?-?-?-?-?-?-?-?-?- 25w 5d 223 lb 8 oz (+6 lb 8 oz) 122/75 Negative -?-?-?-?-?-?-?-?-?-?-?-?- Negative 145 25 -?-?-?-?-?-?-?-?-?-?-?-?- - no vb lof go od fm no regular ctx 09/20/24 -?-?-?-?-?-?-?-?-?-?-?-?- 30w 0d 225 lb (+8 lb) 108/66 Negative -?-?-?-?-?-?-?-?-?-?-?-?- Negative 143 30 -?-?-?-?-?-?-?-?-?-?-?-?- -No VB, LOF. S ome irreg BH. Good FM. Some increased stress-FOB w new seizure activity. She declines med. Enc counseling. 10/02/24 -?-?-?-?-?-?-?-?-?-?-?-?- 31w 5d 230 lb (+13 lb) 124/76 Trace -?-?-?-?-?-?-?-?-?-?-?-?- Negative 133 34 0 -?-?-?-?-?-?-?-?-?-?-?-?- 50 JV- comp laining of cramping more than last . no lof, vaginal bleeding, or dec fm. patient examined and reassured. JV- complaining of cramping more than last . no lof, vaginal bleeding, or dec fm. patient examined and reassured. wants to get back on her fluoxetine. measuring LGA. ACOG First Trimester First Trimester: Desire for , Alcohol, Tobacco Cessation, Illicit/Recreational Drug/Substance Use, Intimate Partner Violence, Barriers to care, Unstable Housing, Communication Barriers, Environmental/Work Hazards, Anticipated Course of Care, Toxoplasmosis Precations, Use of Any medications, Sexual activity, Exercise, Dental Care, Sauna/Hot tub use, Seat Belt use, Childbirth classes/Hospital facilities, Travel, Indications for Ultrasound and Screening for Aneuploidy; Discussed Second Trimester Second Trimester: Signs and Symptoms of Labor, Selecting a care provider, Reproductive Life Planning & Contreception, Care Planning and Depression/Anxiety; Discussed Intimate Partner Violence Third Trimester Third Trimester: Pain Management Plans, Labor support person(s), Immediate Larc, Circumcision preference, Movement Monitoring, Signs and Symptoms of Preeclampsia, Labor Signs, Cervical Ripening/Labor Induction Counseling, Postterm Counseling, Infant Feeding No , Education, Family Medical Leave or Disability Forms, Depression, Tobacco Cessation and Depression; Discussed Trial of Labor after Counseling and Discussed Intimate Partner Violence ROS Const Denies fever(s) GI Reports as per HPI and Denies abdominal pain Reports as per HPI, Denies abnormal vaginal bleeding, Denies dysuria and Denies vaginal discharge Exam Const General: healthy appearing, comfortable and no acute distress GI Inspection: normal to inspection Palpation: soft and nontender Results POC Urinalysis 2 Dip (Clinic) Office Urine Glucose Negative Last Edit by Iza Joiner on 10/02/24 09: 17 Office Urine Protein Trace Last Edit by Iza Joiner on 10/02/24 09:17 Coding Level of Care Code Off vis,est,level 4 Diagnoses Obesity affecting in third trimester, unspecified obesity type O99.213 Obesity type affecting : unspecified obesity Trimester: third trimester Supervision of high risk in third trimester O09.93 Trimester: third trimester 31 weeks gestation of Z3A.31 Weeks of gestation: 31 weeks Anxiety F41.9 Heart murmur R01.1 Assessment and Plan Assessment and Plan (1) Obesity affecting : Status: Acute Qualifiers: Obesity type affecting : unspecified obesity Trimester: third trimester Qualified Code(s): O99.213 - Obesity complicating , third trimester Comment: bmi 35 recommend weekly nsts after 36 growth US q 4 weeks. (2) Supervision of high-risk : Status: Acute Qualifiers: Trimester: third trimester Qualified Code(s): O09.93 - Supervision of high risk , unspecified, third trimester Comment: [id number], THOMAS 11/29/24, huan [facility] Singh, BF Pernell (3) : Status: Acute Qualifiers: Weeks of gestation: 31 weeks Qualified Code(s): Z3A.31 - 31 weeks gestation of Comment: declined NIPT & Carrier testing. nl anatomy. (4) Anxiety: Status: Acute Comment: stable. BF new seizure activity in August. started fluoxetine 10/02 (5) Heart murmur: Status: Acute Orders: Orders POC Urinalysis 2 Dip (Clinic) Today 10/02/24927 <Electronically signed by Evelyn Adan DO> Date _ Evelyn Villa DO Cosigner Signature: Date (if applicable) CC: ~ [facility] Work Phone: Progress note Author Cristy Abreu [facility] Note Date/Time October 20, 2024 9:16a m [facility] [address], [address] [place] [address] OFFICE VISIT Date of Service: 10/20/24 MR#: [id number] Acct: [id number] Name: CLAUDIA FARFAN Rep #: [id number] : 1995 Provider: DEEPAK Abreu Age/Sex: 28/F Location: [facility] [place] Status: Signed Intake Vital Signs 08/21/24 08:34 10/02/24 09:03 10/20/24 08:58 10/20/24 09:02 Height 5 ft 3 in 5 ft 3 in 5 ft 3 in 5 ft 3 in Weight: 231 lb BMI 40.9 BP 119/78 Intake Visit Reasons: 34wk ob Chief Complaint: 34 Week OB Seismograph Recorder Required: No Is patient in pain?: No Allergies No Known Allergies Allergy (Verified 10/20/24 08:56) Medications ?Medication ?Instructions ?Recorded ?Confirmed ?Type folic acid 800 mcg tablet 0.8 mg PO DAILY 10/05/2211/08 History ascorbic acid (vitamin C) 500 mg 500 mg PO DAILY 02/2310/20/24 History tablet (C-500) magnesium 200 mg tablet 200 mg PO DAILY 02/23/2311/08 History omega-3 fatty acids 500 mg PO DAILY 02/23/2311/08 History PNV 153-FA 400 mcg-om3 35 mg-dha tab PO DAILY 04/18/24 10/20/24 History 25 mg-epa 5 mg-fish oil chew tablet cholecalciferol (vitamin D3) 25 4,000 unit PO DAILY 10/20/24 History mcg (1,000 unit) capsule ondansetron 4 mg disintegrating 4 mg PO Q8H PRN nausea and 07/03/24 10/20/24 Rx tablet vomiting #30 tabs Last Menstrual Period: 02/23/24 Zika: Zika virus screening: Negative : No PFSH PFSH Medical History Postoperative abdominal pain Wears contact lenses Wears glasses Non-smoker Cholelithiasis Gallbladder sludge Gallbladder attack Vaginal delivery Surgical History S/P cholecystectomy History of surgery History of surgery History of surgery Family History Mother Asthma Grandfather Heart disease Maternal Hypertension Maternal CVA (cerebral vascular accident) Maternal Thyroid disorder Maternal Social History adopted: No household members: significant other, family and children housing: house number of children: 1 current occupational status: employed 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 current occupational exposures/hazards: No pets and animals: Yes pets and animals: dog(s) history of recent travel: No sexually active: Yes Smoking Status: Never smoker second hand exposure: No alcohol intake: current details: rarely socially- Not while substance use type: does not use well-balanced diet: daily or most days caffeine: Yes (Energy drink 200mg) Type: other Number of servings: 1 eating out: 1-3 times/week during the past year weight has: decreased > 10 lbs what type of physical activity do you participate in: none ronn/taoist: None seatbelt use: always do you feel safe at home: Yes additional social history: Boyfriend Pernell- Pest Control History 2 Elective abortions Hx Para 1 Spontaneous abortions Hx # Term Pregnancies 1 Ectopic pregnancies Hx # Pregnancies Multiple births # of living children 1 Past Pregnancies Del. Date Name GA/Weeks Outcome Route Bth Weight Gen Labor Lgth Anesthesia Del Locatn Provider FOB 08/16/22 Singh 39 live - full term 7# 3oz Male [facility] KW/SM Delivery Date: 08/16/22 Last Updated by: Jovana Jon IOL abnl. NIPT HPI 34wk ob Details: CLAUDIA FARFAN is a 28 year old who presents for routine OB visit. OB Visit THOMAS Calculator Estimated Delivery Date Method Current WG Current Estimate 11/29/24 LMP (Certain) 34w 2d Other Estimates 11/29/24 Ultrasound #1 34w 2d Expected Delivery Route/Plan Labor Preferences- CB/BF classes: no labor support person: Pernell labor intervention preferences: [] pain management options preferred: epidural cut cord/dad catch: cord : yes PP control planned: discussed discussed possible routes of delivery and associated risks: [] special requests: [] Specific Issue/Plans Covid status: [] Flu vaccine: [] Tdap vaccine: declines Rhogam: NA LARC form signed: yes Problem list reviewed and updated with the most current plan of care details and appropriate orders placed. Relevant counseling for the gestational age provided. Continue routine care and follow up unless otherwise noted in visit notes/problem list details Initial Weight: 217 lb Date -?-?-?-?-?-?-?-?-?-?-?-?- EGA Weight BP Urine Prot -?-?-?-?-?-?-?-?-?-?-?-?- Glucose FHR FuHt Pres Dilation -?--?-?-?-?-?-?-?-?-?-?-?- Effaced St Visit Note 04/24/24 -?-?-?-?-?-?-?-?-?-?-?-?- 8w 5d 217 lb (+0 oz) 119/74 -?-?-?-?-?-?-?-?-?-?-?-?- 195 -?-?-?-?-?-?-?-?-?-?-?-?- JV- CRL matches LMP. Declines nipt. afia sent for morning sickness. RTo in 4 weeks. 05/24/24 -?-?-?-?-?-?-?-?-?-?-?-?- 13w 0d 216 lb (-16 oz) 116/72 Negative -?-?-?-?-?-?-?-?-?-?-?-?- Negative 171 -?-?-?-?-?-?-?-?-?-?-?-?- MH-No VB. Nausea controlled with zofran. Br US confirm FHT 06/26/24 -?-?-?-?-?-?-?-?-?-?-?-?- 17w 5d 215 lb 2 oz (-1 lb 14 oz) 119/76 Negative -?-?-?-?-?-?-?-?-?-?-?-?- Negative 165 -?-?-?-?-?-?-?-?-?-?-?-?- KW- no vb/crampi ng. possible flutters. nausea at night but doing well. anatomy US scheduled. 07/28/24 -?-?-?-?-?-?-?-?-?-?-?-?- 22w 2d 222 lb (+5 lb) 110/72 Negative -?-?-?-?-?-?-?-?-?-?-?-?- Negative 155 22 -?-?-?-?-?-?-?-?-?-?-?-?- LC- no vb/crampi ng. feeling movement. has obtained follow up scans. 08/21/24 -?-?-?-?-?-?-?-?-?-?-?-?- 25w 5d 223 lb 8 oz (+6 lb 8 oz) 122/75 Negative -?-?-?-?-?-?-?-?-?-?-?-?- Negative 145 25 -?--?-?-?-?-?-?-?-?-?-?-?- SM- no vb lof go od fm no regular ctx 09/20/24 -?-?-?-?-?-?-?-?-?-?-?-?- 30w 0d 225 lb (+8 lb) 108/66 Negative -?-?-?-?-?-?-?-?-?-?-?-?- Negative 143 30 -?-?-?-?-?-?-?-?-?-?-?-?- MH-No VB, LOF. S ome irreg BH. Good FM. Some increased stress-FOB w new seizure activity. She declines med. Enc counseling. 10/02/24 -?-?-?-?-?-?-?-?-?-?-?-?- 31w 5d 230 lb (+13 lb) 124/76 Trace -?-?-?-?-?-?-?-?-?-?-?-?- Negative 133 34 0 -?-?-?-?-?-?-?-?-?-?-?-?- 50 JV- comp laining of cramping more than last . no lof, vaginal bleeding, or dec fm. patient examined and reassured. JV- complaining of cramping more than last . no lof, vaginal bleeding, or dec fm. patient examined and reassured. wants to get back on her fluoxetine. measuring LGA. 10/20/24 -?-?-?-?-?-?-?-?-?-?-?-?- 34w 2d 231 lb (+14 lb) 119/78 Negative -?-?-?-?-?-?-?-?-?-?-?-?- Negative 150 35 -?-?-?-?-?-?-?-?--?-?-?-?- KW- no vb.lof.ct x. good fm. feels that baby is dropping. ACOG First Trimester First Trimester: Desire for , Alcohol, Tobacco Cessation, Illicit/Recreational Drug/Substance Use, Intimate Partner Violence, Barriers to care, Unstable Housing, Communication Barriers, Environmental/Work Hazards, Anticipated Course of Care, Toxoplasmosis Precations, Use of Any medications, Sexual activity, Exercise, Dental Care, Sauna/Hot tub use, Seat Belt use, Childbirth classes/Hospital facilities, Travel, Indications for Ultrasound and Screening for Aneuploidy; Discussed Second Trimester Second Trimester: Signs and Symptoms of Labor, Selecting a care provider, Reproductive Life Planning & Contreception, Care Planning and Depression/Anxiety; Discussed Intimate Partner Violence Third Trimester Third Trimester: Pain Management Plans, Labor support person(s), Immediate Larc, Circumcision preference, Movement Monitoring, Signs and Symptoms of Preeclampsia, Labor Signs, Cervical Ripening/Labor Induction Counseling, Postterm Counseling, Infant Feeding No , Education, Family Medical Leave or Disability Forms, Depression, Tobacco Cessation and Depression; Discussed Trial of Labor after Counseling and Discussed Intimate Partner Violence ROS Const Reports system reviewed and no additional complaints, except as documented Eyes Reports system reviewed and no additional complaints, except as documented ENT Reports system reviewed and no additional complaints, except as documented Card Reports system reviewed and no additional complaints, except as documented Resp Reports system reviewed and no additional complaints, except as documented GI Reports system reviewed and no additional complaints, except as documented, Denies nausea and Denies vomiting Reports system reviewed and no additional complaints, except as documented Musc Reports system reviewed and no additional complaints, except as documented Skin/Breast Reports system reviewed and no additional complaints, except as documented Neuro Yes system reviewed and no additional complaints, except as documented Psych Reports system reviewed and no additional complaints, except as documented Endo Reports system reviewed and no additional complaints, except as documented Christoph/Lymph Reports system reviewed and no additional complaints, except as documented Aller/Immun Reports system reviewed and no additional complaints, except as documented Exam Const General: cooperative, healthy appearing and no acute distress Orientation: alert, awake and oriented x3 Neck Neck: normal visual inspection and full ROM Resp Effort & Inspection: normal respiratory effort, able to speak in complete sentences and symmetric chest movement GI Inspection: normal to inspection Palpation: soft and other Other: gravid Skin General: no rashes or lesions noted Neuro General: patient alert, patient awake and patient oriented x3 Cognition: normal cognition Speech: speech normal Gait: normal gait Motor: muscle tone normal throughout Extrem General: normal to inspection and full ROM Psych Appearance: grossly normal Mental Status: mental status grossly normal Mood: congruent mood Affect: normal affect Speech and Movement: speech and movement normal Attitude: cooperative Thought Process: normal Thought Content: normal Judgment: judgment good Results POC Urinalysis 2 Dip (Clinic) Office Urine Glucose Negative Last Edit by Nancy Martinez on 10/20/24 09 :02 Office Urine Protein Negative Last Edit by Nancy Martinez on 10/20/24 09 :02 Coding Level of Care Code Off vis,est,level 3 Diagnoses 34 weeks gestation of Z3A.34 Weeks of gestation: 34 weeks Supervision of high risk in third trimester O09.93 Trimester: third trimester Obesity affecting in third trimester, unspecified obesity type O99.213 Obesity type affecting : unspecified obesity Trimester: third trimester Large for gestational age fetus affecting management of mother O36.60X0 Anxiety F41.9 Heart murmur R01.1 Assessment and Plan Assessment and Plan (1) : Status: Acute Qualifiers: Weeks of gestation: 34 weeks Qualified Code(s): Z3A.34 - 34 weeks gestation of Comment: declined NIPT & Carrier testing. nl anatomy. (2) Supervision of high-risk : Status: Acute Qualifiers: Trimester: third trimester Qualified Code(s): O09.93 - Supervision of high risk , unspecified, third trimester Comment: [id number], THOMAS 11/29/24, boy [employer] [facility] Singh, BF Pernell (3) Obesity affecting : Status: Acute Qualifiers: Obesity type affecting : unspecified obesity Trimester: third trimester Qualified Code(s): O99.213 - Obesity complicating , third trimester Comment: bmi 35 recommend weekly nsts after 36 growth US q 4 weeks. (4) Large for gestational age fetus affecting management of mother: Status: Acute (5) Anxiety: Status: Acute Comment: stable. BF new seizure activity in August. started fluoxetine 10/02 (6) Heart murmur: Status: Acute Orders: Orders POC Urinalysis 2 Dip (Clinic) Today Plan Details Additional Comments: ACOG trimester education reviewed and updated. see problem list details for updated plan management information and see below for orders placed at this visit. GA appropriate handout given. 10/20/24 0916 <Electronically signed by Cristy bradford CNM> Date _ Cristy Abreu CNM Cosigner Signature: Date (if applicable) CC: ~ [facility] Work Phone: Reason for referral (narrative)No reason for referral information availableWAvita Health System Work Phone: Summary Purpose Family History Grandmother Name Dates Details Family history of cervical c ancer(V16.49, Z80.49) Status:Active Grandfather Name Dates Details Family history of hypertensi on(V17.49, Z82.49) Status:Active Family history of cerebrovas cular accident (CVA)(V17.1, Z82.3) Status:Active Family history of myocardial infarction(V17.3, Z82.49) Status:Active aunt Name Dates Details Family history of hypertensi on(V17.49, Z82.49) Status:Active Father Name Dates Details Family history of diabetes m ellitus(V18.0, Z83.3) Status:Active Relationship Condition Age at Onset Recorded Date/T manish mother Asthma Unknown grandfather Cardiac disease Unknown Hypertension Unknown Cerebrovascular accident (CVA) Unknown Disorder of thyroid Unknown Advance Directives Advance Directive Response Recorded Date/ Time Living Will No August 16, 2022 8:14am Power of Setup Technician No August 16 8:14am Advance Directive Response Recorded Date/ Time Living Will No February 23 11:05am Power of Setup Technician No February 23, 2023 11:05am Advance Directive Response Recorded Date/ Time Living Will No March 12 3:13pm Power of Setup Technician No March 12, 2023 3:13pm Chief Complaint and Reason for Visit Chief Complaint NOB LMP 11/14 Reason for Visit Seasonal allergies Supervision of normal first Chief Complaint 14WK OB 18WK OB 22WK OB 26WK OB INT LAB. GLUCOSE DRAW AT 12:26 28 WK OB 30 WK OB Reason for Visit Abnormal genetic nisha t during Obesity affecting Seasonal allergies Supervision of normal first Abnormal genetic test during Obesity affecting Supervision of normal first Abnormal genetic test during Marginal insertion of umbilical cord Obesity affecting Seasonal allergies Supervision of normal first Abnormal genetic test during Marginal insertion of umbilical cord Obesity affecting Supervision of normal first Abnormal genetic test during Marginal insertion of umbilical cord Obesity affecting Seasonal allergies Supervision of normal first Abnormal genetic test during Marginal insertion of umbilical cord Obesity affecting Seasonal allergies Supervision of normal first Chief Complaint 18WK OB 22WK OB 26WK OB INT LAB. GLUCOSE DRAW AT 12:26 28 WK OB 30 WK OB 32 WK OB/NST NST ONLY 34 WK OB/NST Reason for Visit Abnormal genetic nisha t during Obesity affecting Supervision of normal first Abnormal genetic test during Marginal insertion of umbilical cord Obesity affecting Seasonal allergies Supervision of normal first Abnormal genetic test during Marginal insertion of umbilical cord Obesity affecting Supervision of normal first Abnormal genetic test during Marginal insertion of umbilical cord Obesity affecting Seasonal allergies Supervision of normal first Abnormal genetic test during Marginal insertion of umbilical cord Obesity affecting Seasonal allergies Supervision of normal first Abnormal genetic test during Marginal insertion of umbilical cord Obesity affecting Seasonal allergies Supervision of normal first Marginal insertion of umbilical cord PUPP (pruritic urticarial papules and plaques of ) Supervision of normal first Abnormal genetic test during Marginal insertion of umbilical cord Obesity affecting PUPP (pruritic urticarial papules and plaques of ) Seasonal allergies Supervision of normal first Chief Complaint 22WK OB 26WK OB INT LAB. GLUCOSE DRAW AT 12:26 28 WK OB 30 WK OB 32 WK OB/NST NST ONLY 34 WK OB/NST NST ONLY 36 WK OB/NST BACK PAIN BACK PAIN Reason for Visit Abnormal genetic nisha t during Marginal insertion of umbilical cord Obesity affecting Seasonal allergies Supervision of normal first Abnormal genetic test during Marginal insertion of umbilical cord Obesity affecting Supervision of normal first Abnormal genetic test during Marginal insertion of umbilical cord Obesity affecting Seasonal allergies Supervision of normal first Abnormal genetic test during Marginal insertion of umbilical cord Obesity affecting Seasonal allergies Supervision of normal first Abnormal genetic test during Marginal insertion of umbilical cord Obesity affecting Seasonal allergies Supervision of normal first Marginal insertion of umbilical cord PUPP (pruritic urticarial papules and plaques of ) Supervision of normal first Abnormal genetic test during Marginal insertion of umbilical cord Obesity affecting PUPP (pruritic urticarial papules and plaques of ) Seasonal allergies Supervision of normal first Abnormal genetic test during Marginal insertion of umbilical cord Obesity affecting Supervision of normal first Abnormal genetic test during Marginal insertion of umbilical cord Obesity affecting PUPP (pruritic urticarial papules and plaques of ) Seasonal allergies Supervision of normal first Abnormal genetic test during Marginal insertion of umbilical cord Obesity affecting Renal calculus Seasonal allergies Supervision of normal first Chief Complaint 22WK OB 26WK OB INT LAB. GLUCOSE DRAW AT 12:26 28 WK OB 30 WK OB 32 WK OB/NST NST ONLY 34 WK OB/NST NST ONLY 36 WK OB/NST BACK PAIN BACK PAIN 37 WK OB/NST Reason for Visit Abnormal genetic nisha t during Marginal insertion of umbilical cord Obesity affecting Seasonal allergies Supervision of normal first Abnormal genetic test during Marginal insertion of umbilical cord Obesity affecting Supervision of normal first Abnormal genetic test during Marginal insertion of umbilical cord Obesity affecting Seasonal allergies Supervision of normal first Abnormal genetic test during Marginal insertion of umbilical cord Obesity affecting Seasonal allergies Supervision of normal first Abnormal genetic test during Marginal insertion of umbilical cord Obesity affecting Seasonal allergies Supervision of normal first Marginal insertion of umbilical cord PUPP (pruritic urticarial papules and plaques of ) Supervision of normal first Abnormal genetic test during Marginal insertion of umbilical cord Obesity affecting PUPP (pruritic urticarial papules and plaques of ) Seasonal allergies Supervision of normal first Abnormal genetic test during Marginal insertion of umbilical cord Obesity affecting Supervision of normal first Abnormal genetic test during Marginal insertion of umbilical cord Obesity affecting PUPP (pruritic urticarial papules and plaques of ) Seasonal allergies Supervision of normal first Abnormal genetic test during Marginal insertion of umbilical cord Obesity affecting Seasonal allergies Supervision of normal first Abnormal genetic test during Gallbladder sludge Marginal insertion of umbilical cord Obesity affecting PUPP (pruritic urticarial papules and plaques of ) Pyelonephritis affecting Seasonal allergies Supervision of normal first Chief Complaint 22WK OB 26WK OB INT LAB. GLUCOSE DRAW AT 12:26 28 WK OB 30 WK OB 32 WK OB/NST NST ONLY 34 WK OB/NST NST ONLY 36 WK OB/NST BACK PAIN 37 WK OB/NST BACK PAIN Reason for Visit Abnormal genetic nisha t during Marginal insertion of umbilical cord Obesity affecting Seasonal allergies Supervision of normal first Abnormal genetic test during Marginal insertion of umbilical cord Obesity affecting Supervision of normal first Abnormal genetic test during Marginal insertion of umbilical cord Obesity affecting Seasonal allergies Supervision of normal first Abnormal genetic test during Marginal insertion of umbilical cord Obesity affecting Seasonal allergies Supervision of normal first Abnormal genetic test during Marginal insertion of umbilical cord Obesity affecting Seasonal allergies Supervision of normal first Marginal insertion of umbilical cord PUPP (pruritic urticarial papules and plaques of ) Supervision of normal first Abnormal genetic test during Marginal insertion of umbilical cord Obesity affecting PUPP (pruritic urticarial papules and plaques of ) Seasonal allergies Supervision of normal first Abnormal genetic test during Marginal insertion of umbilical cord Obesity affecting Supervision of normal first Abnormal genetic test during Marginal insertion of umbilical cord Obesity affecting PUPP (pruritic urticarial papules and plaques of ) Seasonal allergies Supervision of normal first Abnormal genetic test during Gallbladder sludge Marginal insertion of umbilical cord Obesity affecting PUPP (pruritic urticarial papules and plaques of ) Pyelonephritis affecting Seasonal allergies Supervision of normal first Abnormal genetic test during Marginal insertion of umbilical cord Obesity affecting Seasonal allergies Supervision of normal first Chief Complaint 26WK OB INT LAB. GLUCOSE DRAW AT 12:26 28 WK OB 30 WK OB 32 WK OB/NST NST ONLY 34 WK OB/NST NST ONLY 36 WK OB/NST BACK PAIN BACK PAIN 37 WK OB/NST 38 WK OB/NST 39 WK OB/NST VAGINAL DELIVERY INDUCTION VAGINAL DELIVERY VAGINAL DELIVERY Reason for Visit Abnormal genetic nisha t during Marginal insertion of umbilical cord Obesity affecting Supervision of normal first Abnormal genetic test during Marginal insertion of umbilical cord Obesity affecting Seasonal allergies Supervision of normal first Abnormal genetic test during Marginal insertion of umbilical cord Obesity affecting Seasonal allergies Supervision of normal first Abnormal genetic test during Marginal insertion of umbilical cord Obesity affecting Seasonal allergies Supervision of normal first Marginal insertion of umbilical cord PUPP (pruritic urticarial papules and plaques of ) Supervision of normal first Abnormal genetic test during Marginal insertion of umbilical cord Obesity affecting PUPP (pruritic urticarial papules and plaques of ) Seasonal allergies Supervision of normal first Abnormal genetic test during Marginal insertion of umbilical cord Obesity affecting Supervision of normal first Abnormal genetic test during Marginal insertion of umbilical cord Obesity affecting PUPP (pruritic urticarial papules and plaques of ) Seasonal allergies Supervision of normal first Abnormal genetic test during Marginal insertion of umbilical cord Obesity affecting Seasonal allergies Supervision of normal first Abnormal genetic test during Gallbladder sludge Marginal insertion of umbilical cord Obesity affecting PUPP (pruritic urticarial papules and plaques of ) Pyelonephritis affecting Seasonal allergies Supervision of normal first Abnormal genetic test during Marginal insertion of umbilical cord Obesity affecting PUPP (pruritic urticarial papules and plaques of ) Pyelonephritis affecting Supervision of normal first Abnormal genetic test during Gallbladder sludge Marginal insertion of umbilical cord Obesity affecting PUPP (pruritic urticarial papules and plaques of ) Pyelonephritis affecting Seasonal allergies Supervision of normal first Vaginal delivery Abnormal genetic test during Elective induction of labor planned Gallbladder sludge Marginal insertion of umbilical cord Obesity affecting PUPP (pruritic urticarial papules and plaques of ) Pyelonephritis affecting Seasonal allergies Supervision of normal first Chief Complaint UPDATE H&P Laparoscopic, Cholecystectomy with Laparoscopic, Cholecystectomy with Reason for Visit Cholelithiasis Gallbladder sludge Chief Complaint UPDATE H&P Laparoscopic, Cholecystectomy with Laparoscopic, Cholecystectomy with ABD PAIN Reason for Visit Cholelithiasis Gallbladder sludge Chief Complaint Admit Date 12wk OB May 24, 2024 8: 26am 16 WK OB June 26, 2024 9:29am 22wk ob July 28, 2024 8:3 3am 26wk ob/glucose August 21, 2024 8:28 am Reason for Visit Admit Date Anxiety May 24, 2024 8: 26am Heart murmur May 24, 2024 8: 26am May 24, 2024 8: 26am Supervision of high-risk Janua 2024 8:26am Anxiety June 26, 2024 9:29am Heart murmur June 26, 2024 9:29am June 26, 2024 9:29am Supervision of high-risk u 2024 9:29am Anxiety July 28, 2024 8:3 3am Heart murmur July 28, 2024 8:3 3am July 28, 2024 8:3 3am Supervision of high-risk July 28, 2024 8:33am Anxiety August 21, 2024 8:28 am Heart murmur August 21, 2024 8:28 am Obesity affecting August 21 025 8:28am August 21, 2024 8:28 am Supervision of high-risk August 21, 2024 8:28am Chief Complaint Admit Date 16 WK OB June 26, 2024 9:29am 22wk ob July 28, 2024 8:3 3am 26wk ob/glucose August 21, 2024 8:28 am 30wk ob September 20, 2024 9:55am 32wk ob October 02, 2024 8:55a m Reason for Visit Admit Date Anxiety June 26, 2024 9:29am Heart murmur June 26, 2024 9:29am June 26, 2024 9:29am Supervision of high-risk u 2024 9:29am Anxiety July 28, 2024 8:3 3am Heart murmur July 28, 2024 8:3 3am July 28, 2024 8:3 3am Supervision of high-risk July 28, 2024 8:33am Anxiety August 21, 2024 8:28 am Heart murmur August 21, 2024 8:28 am Obesity affecting August 21 8:28am August 21, 2024 8:28 am Supervision of high-risk August 21, 2024 8:28am Anxiety September 20, 2024 9:55am Heart murmur September 20, 2024 9:55am Obesity affecting September 20 9:55am September 20, 2024 9:55am Supervision of high-risk September 202024 9:55am Anxiety October 02, 2024 8:55a m Heart murmur October 02, 2024 8:55a m Obesity affecting October 02 8:55am October 02, 2024 8:55a m Supervision of high-risk September 142024 8:55am Chief Complaint Admit Date 16 WK OB June 26, 2024 9:29am 22wk ob July 28, 2024 8:3 3am 26wk ob/glucose August 21, 2024 8:28 am 30wk ob September 20, 2024 9:55am 32wk ob October 02, 2024 8:55a m GROWTH October 04, 2024 3:40p m Chief Complaint Admit Date 16 WK OB June 26, 2024 9:29am 22wk ob July 28, 2024 8:3 3am 26wk ob/glucose August 21, 2024 8:28 am 30wk ob September 20, 2024 9:55am 32wk ob October 02, 2024 8:55a m GROWTH October 04, 2024 3:40p m 34wk ob October 20, 2024 8:54a m Reason for Visit Admit Date Anxiety June 26, 2024 9:29am Heart murmur June 26, 2024 9:29am June 26, 2024 9:29am Supervision of high-risk Febru [email or web address] 9:29am Anxiety July 28, 2024 8:3 3am Heart murmur July 28, 2024 8:3 3am July 28, 2024 8:3 3am Supervision of high-risk July 28, 2024 8:33am Anxiety August 21, 2024 8:28 am Heart murmur August 21, 2024 8:28 am Obesity affecting August 21, 025 8:28am August 21, 2024 8:28 am Supervision of high-risk August 21, 2024 8:28am Anxiety September 20, 2024 9:55am Heart murmur September 20, 2024 9:55am Obesity affecting September 20 9:55am September 20, 2024 9:55am Supervision of high-risk September 202024 9:55am Anxiety October 02, 2024 8:55a m Heart murmur October 02, 2024 8:55a m Obesity affecting October 02 8:55am October 02, 2024 8:55a m Supervision of high-risk September 142024 8:55am Anxiety October 20, 2024 8:54a m Heart murmur October 20, 2024 8:54a m Large for gestational age fe tus affecting management of mother October 20, 2024 8:54am Obesity affecting October 20 8:54am October 20, 2024 8:54a m Supervision of high-risk October 20, 2024 8:54am Chief Complaint Admit Date 22wk ob July 28, 2024 8:3 3am 26wk ob/glucose August 21, 2024 8:28 am 30wk ob September 20, 2024 9:55am 32wk ob October 02, 2024 8:55a m GROWTH October 04, 2024 3:40p m 34wk ob October 20, 2024 8:54a m 36wk ob November 01, 2024 10:2 3am Reason for Visit Admit Date Anxiety July 28, 2024 8:3 3am Heart murmur July 28, 2024 8:3 3am July 28, 2024 8:3 3am Supervision of high-risk July 28, 2024 8:33am Anxiety August 21, 2024 8:28 am Heart murmur August 21, 2024 8:28 am Obesity affecting August 21, 025 8:28am August 21, 2024 8:28 am Supervision of high-risk August 21, 2024 8:28am Anxiety September 20, 2024 9:55am Heart murmur September 20, 2024 9:55am Obesity affecting September 20 9:55am September 20, 2024 9:55am Supervision of high-risk September 202024 9:55am Anxiety October 02, 2024 8:55a m Heart murmur October 02, 2024 8:55a m Obesity affecting October 02 8:55am October 02, 2024 8:55a m Supervision of high-risk September 142024 8:55am Anxiety October 20, 2024 8:54a m Heart murmur October 20, 2024 8:54a m Large for gestational age fe tus affecting management of mother October 20, 2024 8:54am Obesity affecting October 20 8:54am October 20, 2024 8:54a m Supervision of high-risk October 20, 2024 8:54am Anxiety November 01, 2024 10:2 3am Heart murmur November 01, 2024 10:2 3am Large for gestational age fe tus affecting management of mother November 01, 2024 10:23am Obesity affecting November 01 10:23am November 01, 2024 10:2 3am Supervision of high-risk November 01, 2024 10:23am Reason for Referral Specialty Diagnoses / Procedures Referred By Jes laboy Referred To Contact [facility] Diagnoses Acute pain of left knee Procedures CONSULT TO PHYSICAL THERAPY PHYSICAL THERAPY EVALUATION HIGH COMPLEX 45 MINS Hector Winchester, CURTAIN ROLLER ASSEMBLER.DISASTER RECOVERY COORDINATOR [address] [place] [address] [facility] [place] [address] Referral ID Status Reason Start Date Expiration Date Visits Requested Visits Authorized [id number] Pending Review Auto-Generat ed Referral 01/04/2024 01/03/2025 1 1 Specialty Diagnoses / Procedures Referred By Jes laboy Referred To Contact XR IMAGING Diagnoses Acute pain of left knee Procedures XR KNEE INJURY 4V AP/LAT/OBLS LEFT RADIOLOGIC EXAM KNEE COMPLETE 4/MORE VIEWS Hector Winchester, CURTAIN ROLLER ASSEMBLER.DISASTER RECOVERY COORDINATOR [address] [place] [address] [place] [address] Referral ID Status Reason Start Date Expiration Date Visits Requested Visits Authorized [id number] New Request Auto-Generat ed Referral 01/04/2024 02/02/2025 1 1 Specialty Diagnoses / Procedures Referred By Contac t Referred To Contact Urology Diagnoses Urinary frequency Incomplete bladder emptying Procedures CONSULT TO UROLOGY OFFICE/OUTPATIENT NEW HIGH MDM 60 MINUTES Hector Winchester, CURTAIN ROLLER ASSEMBLER.DISASTER RECOVERY COORDINATOR [address] [place] [address] Referral ID Status Reason Start Date Expiration Date Visits Requested Visits Authorized [id number] Authorized PCP Requested Referral 01/04/2024 01/03/2025 1 1 Additional Source Comments INFORMATION SOURCE (unrecogn ized section and content) DATE CREATED AUTHOR 03/19/2018 [facility] DATE CREATED AUTHOR AUTHOR'S ORGANIZ ATION 09/11/2018 [facility] DATE CREATED AUTHOR AUTHOR'S ORGANIZ ATION 07/07/2020 [employer] DATE CREATED AUTHOR AUTHOR'S ORGANIZ ATION 04/01/2022 [facility] DATE CREATED AUTHOR AUTHOR'S ORGANIZ ATION 10/25/2022 [facility] DATE CREATED AUTHOR AUTHOR'S ORGANIZ ATION 10/24/2023 [facility] DATE CREATED AUTHOR AUTHOR'S ORGANIZ ATION 03/27/2024 [facility] DATE CREATED AUTHOR AUTHOR'S ORGANIZ ATION 06/19/2024 [facility] DATE CREATED AUTHOR AUTHOR'S ORGANIZ ATION 07/17/2024 [facility] DATE CREATED AUTHOR AUTHOR'S ORGANIZ ATION 10/27/2024 [facility] Goals (unrecognized section and content) Goals may be documented in a n alternate sectionGoals may be documented in an alternate sectionGoals may be documented in an alternate sectionGoals may be documented in an alternate sectionGoals may be documented in an alternate sectionGoals may be documented in an alternate sectionGoals may be documented in an alternate sectionGoals may be documented in an alternate sectionGoals may be documented in an alternate sectionGoals may be documented in an alternate sectionGoals may be documented in an alternate sectionGoals may be documented in an alternate section <item><item><item> Privacy Markings (unrecogniz ed section and content) Section Author: Arlene Willingham PROHIBITION ON REDISCLOSURE OF CONFIDENTIAL INFORMATION This notice accompanies a disclosure of information concerning a client made to you with the consent of such client. Section Author: Arlene Willingham PROHIBITION ON REDISCLOSURE OF CONFIDENTIAL INFORMATION This notice accompanies a disclosure of information concerning a client made to you with the consent of such client. Section Author: Arlene Willingham PROHIBITION ON REDISCLOSURE OF CONFIDENTIAL INFORMATION This notice accompanies a disclosure of information concerning a client made to you with the consent of such client. Care Teams (unrecognized sec tion and content) Team Status: Active Member Role Status Dates No Primary Care Physician Primary Care Provider Active Team Status: Inactive Member Role Status Dates No Primary Care Physician Primary Care Provider, Refer ring Provider Active Dr. Penelope Yang MD Attending Provider Active Team Status: Inactive Member Role Status Dates No Primary Care Physician Primary Care Provider, Refer ring Provider Active Gui Sloan SLURRY TANK TENDER, SLURRY TANK TENDER-C Attending Provider Active Team Status: Inactive Member Role Status Dates No Primary Care Physician Primary Care Provider, Refer ring Provider Active Rina Mead CNM Attending Provider Active Team Status: Inactive Member Role Status Dates No Primary Care Physician Primary Care Provider Active Gui Sloan SLURRY TANK TENDER, SLURRY TANK TENDER-C Attending Provider, Referring Provider Active Team Status: Active Member Role Status Dates No Primary Care Physician Primary Care Provider Active Rina Mead CNM Attending Provider , Referring Provider, Other Provider Active Team Status: Inactive Member Role Status Dates No Primary Care Physician Primary Care Provider Active Rina Mead CNM Attending Provider, Referring Pr ovider Active Team Status: Inactive Member Role Status Dates No Primary Care Physician Primary Care Provider Active Rina Mead CNM Admit Provider, At tending Provider, Referring Provider Active Team Status: Active Member Role Status Dates No Primary Care Physician Primary Care Provider Active Cristy Abreu CNM Admit Provider, Att ending Provider, Other Provider Active Team Status: Active Member Role Status Dates No Primary Care Physician Primary Care Provider Active Cristy Abreu CNM Admit Provider Active Dr. Penelope Yang MD Other Provider Active Rina Mead CNM Attending Provider Active Team Status: Active Member Role Status Dates No Primary Care Physician Primary Care Provider Active Cristy Abreu CNM Admit Provider Active Dr. Penelope Yang MD Other Provider Active Gui Sloan SLURRY TANK TENDER, SLURRY TANK TENDER-C Attending Provider Active Team Status: Inactive Member Role Status Dates No Primary Care Physician Primary Care Provider Active Cristy Abreu CNM Admit Provider Active Dr. Penelope Yang MD Attending Provider Active Team Status: Inactive Member Role Status Dates No Primary Care Physician Primary Care Provider, Refer ring Provider Active Dr. Christal Mccall MD Attending Provider Active Team Status: Active Member Role Status Dates No Primary Care Physician Primary Care Provider Active Dr. Christal Mccall MD Attending Provi jesús, Referring Provider, Other Provider Active Team Status: Inactive Member Role Status Dates No Primary Care Physician Primary Care Provider Active Dr. Christal Mccall MD Attending Provider, Referring Provider Active Team Status: Inactive Member Role Status Dates No Primary Care Physician Primary Care Provider Active Dr. Jaylan Pedroza DO Emergency Provider Active Enamel Finisher Relationship Specialty Start Date End Date Ellen Veras MD [address] [facility] [address] [place] [address] PCP - General 12/08/19 Enamel Finisher Relationship Specialty Start Date End Date Hector Winchester, CURTAIN ROLLER ASSEMBLER.DISASTER RECOVERY COORDINATOR [address] [place] [address] PCP - General Family Medicine 01/04/24 Enamel Finisher Relationship Specialty Start Date End Date Hector Winchester, CURTAIN ROLLER ASSEMBLER.DISASTER RECOVERY COORDINATOR [address] [place] [address] PCP - General Family Medicine 01/04/24 Enamel Finisher Relationship Specialty Start Date End Date Hector Winchester, CURTAIN ROLLER ASSEMBLER.DISASTER RECOVERY COORDINATOR [address] [facility] [place] [id number] PCP - General Family Medicine 01/04/24 Enamel Finisher Relationship Specialty Start Date End Date Hector Winchester, CURTAIN ROLLER ASSEMBLER.DISASTER RECOVERY COORDINATOR [address] [facility] [place] [id number] PCP - General Family Medicine 01/04/24 Enamel Finisher Relationship Specialty Start Date End Date Hector Winchester, CURTAIN ROLLER ASSEMBLER.DISASTER RECOVERY COORDINATOR [address] [place] [address] PCP - General Family Medicine 01/04/24 Team Status: Inactive Member Role Status Dates No Primary Care Physician Primary Care Provider Active Start: May 24, 2024 End: May 24, 2024 No Primary Care Physician Referring Provider Active Start: May 24, 2024 End: May 24, 2024 Gui Sloan NP, SLURRY TANK TENDER-C Attending Provider Active Start: May 24, 2024 End: May 24, 2024 Team Status: Inactive Member Role Status Dates No Primary Care Physician Primary Care Provider Active Start: June 26, 2024 End: June 26, 2024 No Primary Care Physician Referring Provider Active Start: June 26, 2024 End: June 26, 2024 Cristy Abreu CNM Attending Provider Active S tart: June 26, 2024 End: June 26, 2024 Team Status: Inactive Member Role Status Dates No Primary Care Physician Primary Care Provider Active Start: July 28, 2024 End: July 28, 2024 No Primary Care Physician Referring Provider Active Start: July 28, 2024 End: July 28, 2024 Rina Mead CNM Attending Provider Active Start: July 28, 2024 End: July 28, 2024 Team Status: Inactive Member Role Status Dates No Primary Care Physician Primary Care Provider Active Start: August 21, 2024 End: August 21, 2024 No Primary Care Physician Referring Provider Active Start: August 21, 2024 End: August 21, 2024 Dr. Penelope Yang MD Attending Provider Active Start: August 21, 2024 End: August 21, 2024 Team Status: Inactive Member Role Status Dates No Primary Care Physician Primary Care Provider Active Start: August 21, 2024 End: August 21, 2024 Dr. Penelope Yang MD Attending Provider Active Start: August 21, 2024 End: August 21, 2024 Team Status: Inactive Member Role Status Dates No Primary Care Physician Primary Care Provider Active Start: September 20, 2024 End: September 20, 2024 No Primary Care Physician Referring Provider Active Start: September 20, 2024 End: September 20, 2024 Gui Sloan NP, SLURRY TANK TENDER-C Attending Provider Active Start: September 20, 2024 End: September 20, 2024 Team Status: Inactive Member Role Status Dates No Primary Care Physician Primary Care Provider Active Start: October 02, 2024 End: October 02, 2024 No Primary Care Physician Referring Provider Active Start: October 02, 2024 End: October 02, 2024 Dr. Evelyn Villa , DO Attending Provider Activ e Start: October 02, 2024 End: October 02, 2024 Team Status: Inactive Member Role Status Dates No Primary Care Physician Primary Care Provider Active Start: October 04, 2024 End: October 04, 2024 Dr. Evelyn Villa , DO Attending Provider Activ e Start: October 04, 2024 End: October 04, 2024 Dr. Evelyn Villa , DO Referring Provider Activ e Start: October 04, 2024 End: October 04, 2024 Team Status: Inactive Member Role Status Dates No Primary Care Physician Primary Care Provider Active Start: October 20, 2024 End: October 20, 2024 No Primary Care Physician Referring Provider Active Start: October 20, 2024 End: October 20, 2024 Cristy Abreu CNM Attending Provider Active S tart: October 20, 2024 End: October 20, 2024 Team Status: Inactive Member Role Status Dates No Primary Care Physician Primary Care Provider Active Start: November 01, 2024 End: November 01, 2024 No Primary Care Physician Referring Provider Active Start: November 01, 2024 End: November 01, 2024 Dr. Penelope Yang MD Attending Provider Active Start: November 01, 2024 End: November 01, 2024 Reason for Visit (unrecogniz ed section and content) Reason Comments Sore Throat Drainage, hoarseness , cough x october 12 Reason Comments Establish Care Anxiety Reason Comments Results Reason Comments Anxiety Reason Comments Cough Source Comments (unrecognize d section and content) In the event this informatio n is protected by the Federal Confidentiality of Alcohol and Drug Abuse Patient Records regulations: The Federal rules restrict any use of the information to criminally investigate or prosecute any alcohol or drug abuse patient.[facility] the event this information is protected by the Federal Confidentiality of Alcohol and Drug Abuse Patient Records regulations: The Federal rules restrict any use of the information to criminally investigate or prosecute any alcohol or drug abuse patient.[facility] the event this information is protected by the Federal Confidentiality of Alcohol and Drug Abuse Patient Records regulations: The Federal rules restrict any use of the information to criminally investigate or prosecute any alcohol or drug abuse patient.[facility] the event this information is protected by the Federal Confidentiality of Alcohol and Drug Abuse Patient Records regulations: The Federal rules restrict any use of the information to criminally investigate or prosecute any alcohol or drug abuse patient.[facility] the event this information is protected by the Federal Confidentiality of Alcohol and Drug Abuse Patient Records regulations: The Federal rules restrict any use of the information to criminally investigate or prosecute any alcohol or drug abuse patient.[facility] FOR RECORDS PERTAINING TO PATIENTS WHO ARE OR HAVE BEEN ENROLLED IN A CHEMICAL DEPENDENCY/SUBSTANCEABUSE PROGRAM, SOME INFORMATION MAY BE OMITTED. This clinical summary was aggregated from multiple sources. Caution should be exercised in using it in the provision of clinical care. This summary normalizes information from multiple sources, and as a consequence, information in this document may materially change the coding, format and clinical context of patient data. In addition, data may be omitted in some cases. CLINICAL DECISIONS SHOULD BE BASED ON THE PRIMARY CLINICAL RECORDS. [facility] [facility]. provides no warranty or guarantee of the accuracy or completeness of information in this document.
[2024-11-02 01:43] VITALS: PULSE 73; O2SAT 98
[2024-11-02 01:48] VITALS: PULSE 70; O2SAT 98
[2024-11-02 01:53] VITALS: BP 117/72; PULSE 69; O2SAT 98
[2024-11-02 01:54] VITALS: RESP 16; TEMP 36.4
[2024-11-02 02:22] VITALS: BMI 41.2
[2024-11-02] MEDS: Acetaminophen/Butalbital/Caffe 1 Tablet PO (02:39)
[2024-11-02 02:44] LABS: Hematocrit 38.4 % (37-47); Hemoglobin 13.4 g/dL (12.0-15.0); Mean Corp Hgb Conc 34.9 g/dL (32-36); Mean Corpuscular Hgb 29.8 pg (27.0-32.0); Mean Corpuscular Volume 85.5 fL (81-99); Mean Platelet Vol. 12.3 fl (6.2-12.0); Platelet Count 208 K/mm3 (150-450); RBC Distribution Width CV 12.5 % (11.6-14.6); RBC Distribution Width SD 38.9 fl (35.1-43.9); Red Blood Count 4.49 M/mm3 (4.2-5.4); White Blood Count 11.6 K/mm3 (4.4-11.0)
[2024-11-02 03:28] LABS: AST(SGOT) 18 U/L (<=31); Alanine Aminotransfer ALT/SGPT 9 U/L (<=34); Creatinine, Serum 0.64 mg/dL (0.70-1.20); EST Glomerular Filtration Rate 123 (>60); Uric Acid 5.7 mg/dL (2.6-6.0)
[2024-11-02 03:30] LABS: Protein:Creat Ratio 153 mg/g CRE (0-200)
--- NOTE | 2024-11-05 12:13 | OB.TRI.PN_ITS ---
Progress Notes Date of Service: 11/02/24 Progress Note: Patient presents for triage evaluation secondary to headache possible preeclampsia FHT: 140 Moderate variability reactive no decelerations category I tracing [place]: no regular Contractions Assessment and plan: headache in 36 weeks headache improved with tylenol labs WNL bps WNL Reactive NST, reassuring maternal and status patient discharged to home to follow-up as scheduled. See problem list details for additional plan information. Laboratory Studies: Laboratory Tests 11/02/24 Range/Units 02:33 WBC 11.6 H (4.4-11.0) K/mm3 RBC 4.49 (4.2-5.4) M/mm3 Hgb 13.4 (12.0-15.0) g/dL Hct 38.4 (37-47) % MCV 85.5 (81-99) fL MCH 29.8 (27.0-32.0) pg MCHC 34.9 (32-36) g/dL RDW Std Deviation 38.9 (35.1-43.9) fl RDW Coeff of Tk 12.5 (11.6-14.6) % Plt Count 208 (150-450) K/mm3 MPV 12.3 H (6.2-12.0) fl Creatinine 0.64 L (0.70-1.20) mg/dL Est GFR (MDRD) Non-Af 123 (>60) Uric Acid 5.7 (2.6-6.0) mg/dL AST 18 (<=31) U/L ALT 9 (<=34) U/L U Random Total Protein 7.0 (0.0-12.0) mg/dL Urine Creatinine 45.90 (28.00-217.00) mg/dL Protein/Creatinin Ratio 153 (0-200) mg/g CRE Charges/Coding Procedures Urinary/Genital 52xxx-59xxx: [id number] non-stress test Interp
== END 2024-11-02 03:50 | disposition home or self-care (01) ==
LOC: WPOUT 01:33 → WP 01:34
PROVIDERS: Visit Provider Obstetrics & Gynecology
DX: O26.893 Other specified pregnancy related conditions, third trimester (principal); R51.9 Headache, unspecified; Z3A.36 36 weeks gestation of pregnancy
CPT/HCPCS: 59025; 59050; 82565; 82570; 84156; 84450; 84460; 84550; 85027; 99221; G0378

== ENCOUNTER → 2024-11-06 | Outpatient (CLI) | payer MEDICAID, SELFPAY ==
--- NOTE | 2024-11-06 11:41 | US_ITS ---
PROCEDURE: OB LIMITED WITH BIOMETRICS 11/06/2024 REASON FOR EXAM: REPEAT Q4W TECHNIQUE: OB LIMITED WITH BIOMETRICS COMPARISON: Prior study dated October 05, 2024. FINDINGS Number: 1 Position: Vertex Placental Position: Posterior and not low-lying Placental Abnormalities: No evidence of previa. DIMENSIONS: Biparietal Diameter: 8.57 cm: 34 weeks and 4 days: 10 percentile/ Head Circumference: 30.86 cm: 34 weeks and 3 days: 1 percentile/ Abdominal Circumference: 30.84 cm: 34 weeks and 6 days: 13 percentile/ Femur Length: 6.92 cm: 35 weeks and 3 days: 19 percentile/ ESTIMATED WEIGHT: 2586 g plus/-388 g ESTIMATED WEIGHT PERCENTILE (24+ weeks): 17 ESTIMATED GESTATIONAL AGE: Baseline: 36 weeks and 5 days By Ultrasound: 36 weeks and 6 days ESTIMATED DATE OF DELIVERY: Baseline: November 30, 2019 By Ultrasound: November 28, 2024 BIOPHYSICAL ASSESSMENT: Amniotic Fluid Volume: 4.48 cm Amniotic Fluid Index: 9.85 (8-24 cm normal range) Cardiac Motion: 152 beats per minute (average) Trunk and Limb Motion: Present. US/OB Limited With Biometrics IMPRESSION: Single live intrauterine gestation with a mean gestational age of 36 weeks and 6 days. The measurements obtained today fall within lower limits of normal. Reading Location: [id number]
== END | disposition home or self-care (01) ==
LOC: OPUS 11:39
PROVIDERS: Referring Provider Obstetrics & Gynecology; Visit Provider Obstetrics & Gynecology
DX: O36.60X0 Maternal care for excessive fetal growth, unspecified trimester, not applicable or unspecified (principal); O99.213 Obesity complicating pregnancy, third trimester; O09.93 Supervision of high risk pregnancy, unspecified, third trimester; Z3A.00 Weeks of gestation of pregnancy not specified
CPT/HCPCS: 76816

== ENCOUNTER 2024-11-23 22:42 | Inpatient (IN) | payer MEDICAID, SELFPAY ==
[2024-11-23 22:07] VITALS: BMI 41.8
[2024-11-23 22:17] VITALS: RESP 14; TEMP 37
[2024-11-23 22:18] VITALS: BP 140/63; PULSE 92
[2024-11-23 22:19] VITALS: PULSE 99; O2SAT 97
[2024-11-23 22:38] VITALS: BP 128/77; PULSE 89
--- OUTSIDE RECORDS SUMMARY | 2024-11-23 22:51 | XMS RPT_ITS | CCD ---
Author Organization [facility] CliniSyor Care Team Providers Care Sanitary Chemist Name Role Phone WOOD, PARMINDER L Unavailable [...] Un available Dr. Evelyn Villa Attending Provider Ellen Veras Unavailable Ismael Davenport Unavailable Unavailable Care Physician, No Primary Primary Care Provider Unavailable Care Physician, No Primary Referring Provider Un available Dr. Penelope Yang Attending Provider [phone] Nathalia BULB PLANTER, GISELE-C Gui Attending Provider [phone] DEEPAK Mead Attending Provider Care Physician, No Primary Primary Care Provider Unavailable Care Physician, No Primary Referring Provider Un available Dr. Penelope Yang Attending Provider [phone] Care Physician, No Primary Primary Care Provider Unavailable Care Physician, No Primary Referring Provider Un available Nathalia BULB PLANTER, BULB PLANTER-C Gui Attending Provider [phone] DEEPAK Mead Referring Provider Mead, CNM Rina Other Provider Care Physician, No Primary Primary Care Provider Unavailable Care Physician, No Primary Referring Provider Un available Dr. Penelope Yang Attending Provider [phone] Nathalia BULB PLANTER, BULB PLANTER-C Gui Attending Provider [phone] Mead, DEEPAK [...] available Dr. Christal Mccall Attending Provider [phone] Dr. Christal Mccall Referring Provider [phone] Dr. Christal Mccall Other Provider Ellen Veras MD Primary Care Provider [phone] ELLEN VERAS Primary Care Unavailable CAITLIN MEHTA Attending Unavailable Marsha HAWLEYN.SECURITY ASSOCIATE, Hector C Primary Care Provider TRILL, HECTOR [...] Provider Un available Nathalia JAQUEZ-CGui Attending Provider [phone] Cristy Abreu CNM Attending Provider [phone] Rina Mead CNM Attending Provider Trey KHAN, Dr. Negrete Attending Provider Care Physician, No Primary Primary Care Provider Unavailable Care Physician, No Primary Referring Provider Un available Gui Tyler Attending Provider Dr. Evelyn Villa DO Attending Provider Dr. Evelyn Villa DO Referring Provider Care Physician, No Primary Primary Care Provider Unavailable Care Physician, No Primary Referring Provider Un available Cristy Abreu CNM Attending Provider [phone] Dr. Penelope Yang MD Referring Provider Dr. Penelope Yang MD Other Provider [phone] Rina Mead Attending Unavailable Care Physician, No Primary Primary Care Unava ilable Care Physician, No Primary Referring Unava ilable Care Physician, No Primary Referring Unava ilable Care Physician, No Primary Primary Care Unava ilable Cristy Abreu Attending Unavailable Care Physician, No Primary Primary Care Unava ilable Penelope Yang Attending Unavailable Care Physician, No Primary Referring Unava ilable Care Physician, No Primary Primary Care Unava ilable Gui Sloan NP Attending Unavailable Evelyn Villa Attending Unavailabl e Care Physician, No Primary Primary Care Unava ilable Care Physician, No Primary Referring Unava ilable Care Physician, No Primary Referring Unava ilable Care Physician, No Primary Primary Care Unava ilable Penelope Yang Attending Unavailable Care Physician, No Primary Primary Care Unava ilable JarrellanthPenelope boyd Consulting Unavailable MarcanthPenelope boyd Attending Unavailable Care Physician, No Primary Primary Care Unava ilable Jarrellantholiver, Penelope Attending Unavailable Care Physician, No Primary Primary Care Unava ilable Penelope Yang Referring Unavailable Trey, Penelope Attending Unavailable Care Physician, No Primary Referring Unava ilable Vande VelEvelyn morgan Attending Unavailabl e Care Physician, No Primary Primary Care Unava ilable Vande Velde, Evelyn Attending Unavailabl e Care Physician, No Primary Primary Care Unava ilable Vande Velde, Evelyn Referring Unavailabl e Care Physician, No Primary Primary Care Unava ilable Care Physician, No Primary Referring Unava ilable Cristy Abreu Attending Unavailable Care Physician, No Primary Primary Care Unava ilable Trey, Penelope Attending Unavailable Nitae Velcathy, Evelyn Referring Unavailabl e Care Physician, No Primary Primary Care Unava ilable Vande Velde, Evelyn Attending Unavailabl e Vande Velde, Evelyn Referring Unavailabl e Care Physician, No Primary Primary Care Unava ilable Nitae VelEvelyn morgan Attending Unavailabl e Care Physician, No Primary Primary Care Unava ilable Penelope Yang Attending Unavailable Care Physician, No Primary Primary Care Unava ilable Care Physician, No Primary Referring Unava ilable Penelope Yang Attending Unavailable Care Physician, No Primary Primary Care Unava ilable Care Physician, No Primary Referring Unava ilable Penelope Yang Attending Unavailable Vande VeldeEvelyn Attending Unavailabl e Care Physician, No Primary Primary Care Unava ilable Care Physician, No Primary Referring Unava ilable Care Physician, No Primary Primary Care Unava ilable Gui Sloan NP Attending Unavailable Care Physician, No Primary Referring Unava ilable Care Physician, No Primary Primary Care Unava ilable Cristy Abreu Attending Unavailable Care Physician, No Primary Referring Unava ilable Allergies Allergy Classification Reported Allergen(s) Allergy Type Date of Onset Reaction(s) Facility (1 source) Environmental allergy; Translations: [Environmental allergy] Propensity to adverse reactions (disorder) [facility] Repository (1 source) No Known Medication Allergies; Translations: [No Known Medication Allergies] Propensity to adverse reactions to drug (disorder) [facility] Repository (1 source) bee pollen Allergy to substance (finding) [facility] [address] Work Phone: (1 source) Animal dander - Cats Allergy to substance (finding) [facility] [address] Work Phone: Medications Current Medications Medication Drug Class(es) Dates Sig (Normalized) Sig (Original) ascorbic acid 500 mg oral tablet (13 sources) Vitamin C Start: 02-23-2023 take 1 [...] URI , PND (post-nasal drip) Use 1 Irrigon in each nostril two times a day [...] by prescriber. cholecalciferol 0.025 mg oral capsule (20 sources) Vitamin D Start: take 1 capsule [...] Acute URI , Sinus drainage Use 1 Irrigon in each nostril daily at bedtime for 10 days. 9.9 mL 06/17/2024 06/27/2024 Active folic acid 0.8 mg oral tablet (13 sources) Start: 10-05-2022 take 0.8 mg by mouth once daily Folic Acid 800 mcg tablet Active 0.8 mg PO DAILY October 05, 2022 12:00am Start: 10-05-2022 take 0.8 mg by mouth once amanda y Folic Acid Active 0.8 MG PO DAILY October 05, 2022 12:00am 1.5/30 oral tablet (1 source) take 1 tablet by mouth once daily 1.530 oral tablet ; 1 tab(s) orally once a day Quantity: 0 Refills: 0 Ordered: 26-Apr-2020 Bowling, Melanic Status: Other Generic Substitution Allowed Magnesium (13 sources) Start: 02-23-2023 take 1 tablet by [...] 0 Refills: 0 Ordered: 26-Apr-2020 Lakeshia Levine Status: Other Generic Substitution Allowed Salmon-3 Fatty Acids (2 sources) Start: 02-24-20 take 500 mg by mouth once daily Salmon-3 Fatty Acids Active 500 MG PO DAILY February 23, 2023 12:00am Salmon-3 Fatty Acids capsule (11 sources) Start: 02-24-20 take 1 capsule by mouth once daily Salmon-3 Fatty Acids capsule Active 500 mg PO DAILY February 23, 2023 12:00am ondansetron 4 mg disintegrating oral tablet (20 sources) Serotonin-3 Receptor Antagonist Start: 04-24-20 End: 07-03-19 take 1 tablet by mouth every eight hours as needed for nausea and vomiting Ondansetron 4 mg tablet,disintegratin g Active 4 mg PO Q8H as needed for nausea and vomiting 30 July 03, 2024 9:33am Start: 03-12-2023 End: 04-18-2024 take 1 tablet by mouth every eight hours as needed for nausea Ondansetron 4 mg tablet,disintegrating Discontinued 4 mg PO EVERY 8 HOURS NEEDED as needed for Nausea 10 0 March 12, 2023 12:00am April 18, 2024 11:41am Start: 10-18-2022 take 1 tablet by nneka th every eight hours ondansetron 4 mg oral tablet, disintegrating ; 1 tab(s) orally every 8 hours Quantity: 15 Refills: 0 Ordered: 18-Oct-2022 Ana Shabazz Start: 18-Oct-2022 Generic Substitution Allowed Pnv No.177-Nq-Hx4-Dha-Epa-Fi sh (8 sources) Start: 01-13-2022 take 1 tablet by mouth once daily Pnv No.149-Oh-Yj0-Mhc-Ajn-Rebt Active 1 TABLET PO DAILY January 13, 2022 12:00am Start: 01-13-2022 take 1 tablet by nneka th once daily Pnv No.280-Ny-Wd5-Biy-Jae-Ykfz Active 1 TABLET PO DAILY January 12, 2022 11:00pm Start: 01-13-2022 Pnv No.153-Fa- Lx6-Tgw-Cbf-Fish Active TABLET PO January 12, 2022 11:00pm Start: 01-13-2022 Pnv No.153-Fa- Ff9-Nmo-Cfl-Fish Active TABLET PO January 13, 2022 12:00am Pnv No.155-Cy-Qp2-Dha-Epa-Fi sh 400 mcg-35 mg- 25 mg-5 mg tablet,chewable (11 sources) Start: 04-18-2024 Pnv No.370-Vw-Px8-Dha-Epa-Fi sh 400 mcg-35 mg- 25 mg-5 mg tablet,chewable Active {tbl} PO DAILY April 18, 2024 1:00am VITAMIN (3 sources) VITAMIN Quantity: 0 Refills: 0 Ordered: 31-Mar-2022 Bita Bautista Generic Substitution Allowed Vitamin D (3 sources) VITAMIN D ; once a day Quantity: 0 Refills: 0 Ordered: 26-Apr-2020 Lakeshia Levine Generic Substitution Allowed Completed/Discontinued Medications Medication Drug Class(es) Dates Sig (Normalized) Sig (Original) acetaminophen 325 mg / oxyCODONE hydrochloride 5 mg oral tablet (14 sources) Opioid Agonist Start: 03-02-2023 End: 03-22-2023 Oxycodone-Acetaminoph en 5-325 mg tablet Discontinued 1 - 2 {tbl} PO EVERY 6 HOURS as needed for pain 14 3 0 March 02, 2023 March 22, 2023 3:28pm Postoperative pain Other acute postprocedural pain Start: 03-02-2023 take 1 tablet by nneka th every six hours Oxycodone-Acetaminophen Active 1 - 2 TABLET PO EVERY 6 HOURS 14 3 March 02, 2023 Start: 10-18-2022 take 1 [...] mg / clavulanate 125 mg oral tablet (12 sources) Penicillin-class Antibacterial Start: 03-12-20 End: 03-22-20 Amoxicillin-Pot Clavulanate 875-125 mg tablet Discontinued 1 {tbl} PO TWICE A DAY 14 March 12, 2023 12:00am March 22, 2023 3:28pm Start: 03-12-2023 take 1 tablet by nneka twice daily Amoxicillin-Pot Clavulanate Active 1 TABLET PO TWICE A DAY March 12, 2023 12:00am .10/13 1.5-30 MG-MCG Oral Tablet (1 source) Estrogen take 1 tablet by mouth once daily, then take 1.5-30 tablets by mouth 1.5-30 MG-MCG Oral Tablet TAKE 1 TABLET DAILY DIRECTED. Quantity: 3 Refills: 3 Santino JOHNSON, Yunior Active 28 Tablet Pack FLUoxetine 10 mg oral tablet (15 sources) Serotonin Reuptake Inhibitor Start: End: take 1 tablet by mouth twice daily in the morning Fluoxetine 10 mg tablet Discontinued 10 mg PO TWICE A DAY 60 October 02, 2024 12:00am October 20, 2024 9:02am Anxiety Anxiety disorder, unspecified administer in the morning and at noon/midday [...] / nitrofurantoin, monohydrate 75 mg oral capsule (17 sources) Nitrofuran Antibacterial Start: 07-24-2022 End: 07-25-2022 take 1 capsule by mouth every twelve hours at mealtime Nitrofurantoin Monohyd/M-Cryst (Macrobid) 100 mg capsule Discontinued 100 mg PO Q12H 10 5 0 July 24, 2022 1:00am July 28, 2022 12:00am July 25, 2022 9:45am must administer with a meal/food oxyCODONE hydrochloride 5 mg oral capsule (20 sources) Opioid Agonist Start: 03-12-2023 End: 03-22-2023 take 1 capsule by mouth every six hours as needed for pain Oxycodone 5 mg capsule Discontinued 5 mg PO EVERY 6 HOURS as needed for pain 20 5 0 March 12, 2023 March 22, 2023 3:28pm Postoperative abdominal pain Unspecified abdominal pain Other acute postprocedural pain predniSONE 20 mg oral tablet (1 source) [...] Problem Date Documented Date Episodic/Chronic Abdominal pain (16 sources) Abdominal pain; Translations: [Right upper quadrant [...] Heart murmur; Translations: [Cardiac murmur, unspecified] Onset: 11-15-2024 10-05-2022 Episodic Other complications of (20 sources) Maternal obesity complicating , childbirth and the puerperium, antepartum; Translations: [Obesity complicating , unspecified trimester] 02-16-2022 Chronic Comment on above: bmi 35 recommend wee kly nsts after 36 growth US q 4 weeks. 1 TM GCT Other complications of (20 sources) Obesity complicating , unspecified trimester; Translations: [Obesity complicating , childbirth, or the puerperium, unspecified as to episode of care or not applicable] Onset: 08-21-2024 02-16-2022 Chronic Other complications of (1 source) Obesity complicating , third trimester; Translations: [Obesity complicating , third trimester] Onset: 11-15-2024 Chronic Other complications of (19 sources) Abnormal findings on screening of mother; [...] abdomen. L abs nl Other complications of (16 sources) Pyelonephritis in ; Translations: [Infections of kidney in , unspecified trimester] 07-27-2022 Episodic Comment on above: afebrile, VSSobtaini ng CBC and renal ultrasound.ultrasound negative for calculi. s/p tylenol and [id number] ancef, will transition to keflex outpatient. Other complications of (6 sources) Infections of kidney in , unspecified trimester; Translations: [Infections of genitourinary tract in , unspecified as to episode of care or not applicable] 07-27-2022 Episodic Other complications of (20 sources) High risk ; Translations: [Supervision of high risk , unspecified, unspecified trimester] 08-21-2024 Episodic Comment on above: NMTC8H2, THOMAS 11/29/24 , boy [employer] PC Singh, BF Pernell Other complications of (20 sources) Excessive growth affecting management of mother; Translations: [Maternal care for excessive growth, unspecified trimester, not applicable or unspecified] 10-02-2024 Episodic Other complications of (1 source) Supervision of high risk , unspecified, third trimester; Translations: [Supervision of high risk , unspecified, third trimester] Onset: 11-15-2024 Episodic Other complications of (1 source) Maternal care for excessive growth, unspecified trimester, not applicable or unspecified; Translations: [Maternal care for excessive growth, unspecified trimester, not applicable or unspecified] Onset: 2024 Episodic Other complications of (1 source) Other specified related conditions, third trimester; Translations: [Other specified related conditions, third trimester] Onset: 11-09-2024 Episodic Other complications of (1 source) Supervision [...] Carrier neg. , nl GCT. nl anatomy GBS Negative, declin ed NIPT & Carrier testing. nl anatomy. Other screening for suspected conditions (not mental disorders or infectious disease) (2 sources) Patient encounter status; Translations: [Encounter for screening for lipoid disorders] Onset: 03-17-2024 03-17-2024 Episodic Other upper respiratory disease (20 sources) Seasonal allergy; Translations: [Other seasonal allergic [...] Acute pharyngitis, unspecified; Translations: [Acute laryngitis] Onset: 11-15-2022 06-07-2024 Episodic Residual codes; unclassified (1 source) Gestation period, 16 weeks; Translations: [16 weeks gestation of ] 06-17-2024 Episodic Residual codes; unclassified (1 source) 38 weeks gestation of ; Translations: [38 weeks gestation of ] Onset: 11-15-2024 Episodic Residual codes; unclassified (1 source) 37 weeks gestation of ; Translations: [37 weeks gestation of ] Onset: 11-09-2024 Episodic Residual codes; unclassified (1 source) 34 weeks gestation of ; Translations: [34 weeks gestation of ] Onset: 10-20-2024 Episodic Residual codes; unclassified (1 source) 25 weeks gestation of ; Translations: [25 weeks gestation of ] Onset: 08-21-2024 Episodic Umbilical cord complication (11 sources) Marginal insertion of umbilical cord 08-16-2022 [...] [Marginal insertion of umbilical cord] 04-13-2022 Unclassified (15 sources) Planned procedure; Translations: [Elective induction of labor planned] 08-16-2022 NEGATED: Highlighted row has not occurred!Residual codes; unclassified (2 sources) Disease Episodic Results Test Name Value Interpretation Reference Range Facility Laboratory - Chemistry and C hemistry - challengeOrdered By: Evelyn Lema on 11-15-2024 Glucose Ql (U) Negative [facility] Laboratory - UrinalysisOrder ed By: Evelyn Lema on 11-15-2024 Protein Ql (U) Negative [facility] Visit Reporton 11-15-2024 [facility] Office Visit Report [facility] [address], [address] [place] [address] OFFICE VISIT Date of Service: 11/15/24 MR#: [id number] Acct: [id number] Name: CLAUDIA FARFAN Rep #: [id number] : 1995 Provider: Dr. Evelyn Becker DO Age/Sex: 29/F [place] [facility] [place]: Signed Intake Vital Signs 10/02/24 09:03 11/09/24 14:36 11/15/24 14:10 11/15/24 14:10 Height 5 ft 3 in 5 ft 3 in 5 ft 3 in 5 ft 3 in Weight: 235 lb 2 oz 236 lb 4 oz BMI 41.6 41.8 BP 124/77 H 129/86 H Intake Visit Reasons: 38wk ob/nst [employer] Required: No Is patient in pain?: No Allergies No Known Allergies Allergy (Verified 11/15/24 14:09) Medications ???Medication ???Instructions ???Recorded ???Confirmed ???Type folic acid 800 mcg tablet 0.8 mg PO DAILY 10/05/22 11/15/24 History ascorbic acid (vitamin C) 500 mg 500 mg PO DAILY 02/23/23 11/15/24 History tablet (C-500) magnesium 200 mg tablet 200 mg PO DAILY 02/23/23 11/15/24 History omega-3 fatty acids 500 mg PO DAILY 02/23/23 11/15/24 History PNV 153-FA 400 mcg-om3 35 mg-dha tab PO DAILY 04/18/24 11/15/24 His tory 25 mg-epa 5 mg-fish oil chew tablet cholecalciferol (vitamin D3) 25 4,000 unit PO DAILY 04/18/2411/15 History mcg (1,000 unit) capsule ondansetron 4 mg disintegrating 4 mg PO Q8H PRN nausea and 5 11/15/24 Rx tablet vomiting #30 tabs Last Menstrual [...] 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 NIPT HPI 38wk ob/nst Details: CLAUDIA FARFAN is a 29 year old who presents for routine OB visit. OB Visit THOMAS Calculator Estimated Delivery Date Method Current WG Current Estimate 11/29/24 LMP (Certain) 38w 0d Other Estimates 11/29/24 Ultrasound #1 38w 0d Expected Delivery Route/Plan Labor Preferences- CB/BF [...] ???-???-???-???-???-???- EGA Weight BP Urine Prot -???-???-???-???-???-???- ???-???-???-???-? (more content not included)... Normal [facility] Laboratory - Chemistry and C hemistry - challengeOrdered By: Penelope Yang on 11-09-2024 Glucose Ql (U) Negative [facility] Laboratory - UrinalysisOrder ed By: Penelope Yang on 11-09-2024 Protein Ql (U) Negative [facility] Office Visit Reporton 11-09-2024 [facility] Office Visit Report [facility] [address], [address] [place] [address] OFFICE VISIT Date of Service: 11/09/24 MR#: [id number] Acct: [id number] Name: CLAUDIA FARFAN Rep #: [id number] : 1995 Provider: Dr. Penelope bynre MD Age/Sex: 29/F [place] [facility] [place] Status: Signed Intake Vital Signs 09/20/24 09:57 11/02/24 02:22 11/09/24 14:36 Height 5 ft 3 in 5 ft 3 in 5 ft 3 in Weight: 235 lb 2 oz BMI 41.6 BP 124/77 H Intake Visit Reasons: 37wk ob/nst [employer] As[employer]er Required: No Is patient in pain?: No Allergies No Known Allergies Allergy (Verified 11/09/24 14:45) Medications ???Medication ???Instructions ???Recorded ???Confirmed ???Type folic acid 800 mcg tablet 0.8 mg PO DAILY 10/05/22 11/09/24 History ascorbic acid (vitamin C) 500 mg 500 mg PO DAILY 02/23/23 11/09/24 History tablet (C-500) magnesium 200 mg tablet 200 mg PO DAILY 02/23/23 11/09/24 History omega-3 fatty acids 500 mg PO DAILY 02/23/23 11/09/24 History PNV 153-FA 400 mcg-om3 35 mg-dha tab PO DAILY 04/18/24 11/09/24 His tory 25 mg-epa 5 mg-fish oil chew tablet cholecalciferol (vitamin D3) 25 4,000 unit PO DAILY 04/18/2411/09 History mcg (1,000 unit) capsule ondansetron 4 mg disintegrating 4 mg PO Q8H PRN nausea and 07/03/ 5 11/09/24 Rx tablet vomiting #30 tabs Last Menstrual [...] 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 NIPT HPI 37wk ob/nst Details: CLAUDIA FARFAN is a 29 year old who presents for routine OB visit. OB Visit THOMAS Calculator Estimated Delivery Date Method Current WG Current Estimate 11/29/24 LMP (Certain) 37w 1d Other Estimates 11/29/24 Ultrasound #1 37w 1d Expected Delivery Route/Plan Labor Preferences- CB/BF classes: [...] -???-???-???-???-???-???- ???-???-???-???-???-???- Glucose FHR FuHt Pres Dilation -???-???-???-???-??? (more content not included)... Normal [facility] OB Limited With Biometricson 11-06-2024 OB Limited With Biometrics [facility] Imaging Services [address] [place] [address] [id number] OB Limited With Biometrics MR#: [id number] Acct: [id number] Name: CLAUDIA FARFAN MARLENE Rep #: [id number] : 1995 F 28 From: José garcia MD PCP: Care Physician,No Primary Status: REG CLI Study: OB Limited With Biometrics Date of Exam: 11/06 Exam# [id number] Ordering Dr: Evelyn Villa DO PROCEDURE: OB LIMITED WITH BIOMETRICS 11/06/2024 REASON FOR EXAM: REPEAT Q4W TECHNIQUE: OB LIMITED WITH BIOMETRICS COMPARISON: Prior study dated October 05, 2024. FINDINGS Number: 1 Position: Vertex Placental Position: Posterior and not low-lying Placental Abnormalities: No evidence of previa. DIMENSIONS: Biparietal Diameter: 8.57 cm: 34 weeks and 4 days: 10 percentile/ Head Circumference: 30.86 cm: 34 weeks and 3 days: 1 percentile/ Abdominal Circumference: 30.84 cm: 34 weeks and 6 days: 13 percentile/ Femur Length: 6.92 cm: 35 weeks and 3 days: 19 percentile/ ESTIMATED WEIGHT: 2586 g plus/-388 g ESTIMATED WEIGHT PERCENTILE (24+ weeks): 17 ESTIMATED GESTATIONAL AGE: Baseline: 36 weeks and 5 days By Ultrasound: 36 weeks and 6 days ESTIMATED DATE OF DELIVERY: Baseline: November 30, 2019 By Ultrasound: November 28, 2024 BIOPHYSICAL ASSESSMENT: Amniotic Fluid Volume: 4.48 cm Amniotic Fluid Index: 9.85 (8-24 cm normal range) Cardiac Motion: 152 beats per minute (average) Trunk and Limb Motion: Present. US/OB Limited With Biometrics IMPRESSION: Single live intrauterine gestation with a mean gestational age of 36 weeks and 6 days. The measurements obtained today fall within lower limits of normal. Reading Location: [id number] CC: Dr. Evelyn Villa DO; No Primary Care Physician Radiotelegrapher: Signed Normal [facility] OB Triage Progress Noteon OB Triage Progress Note [facility] Medical Records Department [address] [place] [id number] OB Triage Progress Note 11/05/24 1213 MR#: [id number] Acct: [id number] Name: CLAUDIA FARFAN MARLENE Rep #: [id number] : 1995 28 From: Penelope Yang MD PCP: Care Physician,No Primary Status:SILVERIO Barry DOS: Location: [facility]OUT Progress Notes Date of Service: 11/02/24 Progress Note: Patient presents for triage evaluation secondary to headache possible preeclampsia FHT: 140 Moderate variability reactive no decelerations category I tracing [place]: no regular Contractions Assessment and plan: headache in 36 weeks headache improved with tylenol labs WNL bps WNL Reactive NST, reassuring maternal and status patient discharged to home to follow-up as scheduled. See problem list details for additional plan information. Laboratory Studies: Laboratory Tests 11/02/24 Range/Units 02:33 WBC 11.6 H (4.4-11.0) K/mm3 RBC 4.49 (4.2-5.4) M/mm3 Hgb 13.4 (12.0-15.0) g/dL Hct 38.4 (37-47) % MCV 85.5 (81-99) fL MCH 29.8 (27.0-32.0) pg MCHC 34.9 (32-36) g/dL RDW Std Deviation 38.9 (35.1-43.9) fl RDW Coeff of Tk 12.5 (11.6-14.6) % Plt Count 208 (150-450) K/mm3 MPV 12.3 H (6.2-12.0) fl Creatinine 0.64 L (0.70-1.20) mg/dL Est GFR (MDRD) Non-Af 123 (>60) Uric Acid 5.7 (2.6-6.0) mg/dL AST 18 (<=31) U/L ALT 9 (<=34) U/L U Random Total Protein 7.0 (0.0-12.0) mg/dL Urine Creatinine 45.90 (28.00-217.00) mg/dL Protein/Creatinin Ratio 153 (0-200) mg/g CRE Charges/Coding Procedures Urinary/Genital 52xxx-59xxx: [id number] non-stress test Interp 11/05/24 1214 Date Penelope Yang MD Cosigner Signature (if applicable): Date CC: Dr. Penelope Yang MD; No Primary Care Physician Signed Normal [facility] Rule out Beta Strep (Grp. B) on 11-03-2024 ROBERTO Group B Beta Streptococcus is not isolated. Normal [facility] Comment on above: Performed By: #### M 100.3400 #### [facility] Laboratory [address] [place], [address] AST(SGOT)on 11-02-2024 AST [Catalytic activity/Vol] 18 U/L Normal <=31 [facility] Comment on above: Performed By: #### L 100.0500, L501.1400, L501.4100, L501.0900, L501.1105, L501.4405 ####[facility] [address] [place], [address] Alanine Aminotransferas (SGP T)on 11-02-2024 ALT [Catalytic activity/Vol] 9 U/L Normal <=34 [facility] Comment on above: Performed By: #### L 100.0500, L501.1400, L501.4100, L501.0900, L501.1105, L501.4405 ####[facility] [address] [place], [address] CBC-Complete Blood Cnt No Di ffon 11-02-2024 Erythrocyte distribution width (RBC) [Ratio] 12.5 % Normal 11.6-14.6 [facility] Comment on above: Performed By: #### L 100.0500, L501.1400, L501.4100, L501.0900, L501.1105, L501.4405 ####[facility] [address] [place], [address] Hematocrit (Bld) [Volume fraction] 38.4 % Normal 37-47 [facility] Comment on above: Performed By: #### L 100.0500, L501.1400, L501.4100, L501.0900, L501.1105, L501.4405 ####[facility] [address] [place], [address] Hemoglobin (Bld) [Mass/Vol] 13.4 g/dL Normal 12.0-15.0 [facility] Comment on above: Performed By: #### L 100.0500, L501.1400, L501.4100, L501.0900, L501.1105, L501.4405 ####[facility] [address] [place], [address] MCH (RBC) [Entitic mass] 29.8 pg Normal 27.0-32.0 [facility] Comment on above: Performed By: #### L 100.0500, L501.1400, L501.4100, L501.0900, L501.1105, L501.4405 ####[facility] [address] [place], [address] MCHC (RBC) [Mass/Vol] 34.9 g/dL Normal 32-36 [facility] Comment on above: Performed By: #### L 100.0500, L501.1400, L501.4100, L501.0900, L501.1105, L501.4405 ####[facility] [address] [place], [address] MCV (RBC) [Entitic vol] 85.5 fL Normal 81-99 [facility] Comment on above: Performed By: #### L 100.0500, L501.1400, L501.4100, L501.0900, L501.1105, L501.4405 ####[facility] [address] [place], [address] Platelet mean volume (Bld) [Entitic vol] 12.3 fL High 6.2-12.0 [facility] Comment on above: Performed By: #### L 100.0500, L501.1400, L501.4100, L501.0900, L501.1105, L501.4405 ####[facility] [address] [place], [address] Platelets (Bld) [#/Vol] 208 10*3/uL Normal 150-450 [facility] Comment on above: Performed By: #### L 100.0500, L501.1400, L501.4100, L501.0900, L501.1105, L501.4405 ####[facility] [address] [place], [address] RBC (Bld) [#/Vol] 4.49 10*6/uL Normal 4.2-5.4 [facility] Comment on above: Performed By: #### L 100.0500, L501.1400, L501.4100, L501.0900, L501.1105, L501.4405 ####[facility] [address] [place], [address] RDW SD 38.9 fl Normal 35.1-43.9 [facility] Comment on above: Performed By: #### L 100.0500, L501.1400, L501.4100, L501.0900, L501.1105, L501.4405 ####[facility] [address] [place], [address] WBC (Bld) [#/Vol] 11.6 10*3/uL High 4.4-11.0 [facility] Comment on above: Performed By: #### L 100.0500, L501.1400, L501.4100, L501.0900, L501.1105, L501.4405 ####[facility] [address] [place], [address] Erythrocyte distribution wid th ratioOrdered By: Penelope Yang on 11-02-2024 Erythrocyte distribution width (RBC) [Ratio] 12.5 % 11.6-14.6 [facility] Erythrocyte distribution wid th standard deviationOrdered By: Penelope Yang on 11-02-2024 Erythrocyte distribution width (RBC) [Ratio] 38.9 fl 35.1-43.9 [facility] Glomerular filtration rate ( GFR) estimation/1.73 sq m using serum, plasma, or whole bOrdered By: Penelope Yang on 11-02-2024 GFR/1.73 sq M.predicted among non-blacks MDRD (S/P/Bld) [Vol rate/Area] 123 mL/min/{1.73_m2} >60 [facility] Comment on above: mL/min/1.73m2 CKD-EP I Creatinine Equation (2020) Hematocrit Auto (Bld) [Volum e fraction]Ordered By: Penelope Yang on 11-02-2024 Hematocrit (Bld) [Volume fraction] 38.4 % 37-47 [facility] Hemoglobin measurementOrdere d By: Penelope Yang on 11-02-2024 Hemoglobin (Bld) [Mass/Vol] 13.4 g/dL 12.0-15.0 [facility] Laboratory - Chemistry and C hemistry - challengeOrdered By: Penelope Yang on 11-02-2024 AST [Catalytic activity/Vol] 18 U/L <32 [facility] MCV (mean corpuscular volume ) determinationOrdered By: Penelope Yang on 11-02-2024 MCV (RBC) [Entitic vol] 85.5 fL 81-99 [facility] Mean corpuscular hemoglobin (MCH) determinationOrdered By: Penelope Yang on 11-02-2024 MCH (RBC) [Entitic mass] 29.8 pg 27.0-32.0 [facility] Mean corpuscular hemoglobin concentration (MCHC) determinationOrdered By: Penelope Yang on 11-02-2024 MCHC (RBC) [Mass/Vol] 34.9 g/dL 32-36 [facility] Mean platelet volume determi nationOrdered By: Penelope Yang on 11-02-2024 Platelet mean volume (Bld) [Entitic vol] 12.3 fL High 6.2-12.0 [facility] Platelet countOrdered By: Dheeraj Yang on 11-02-2024 Platelets (Bld) [#/Vol] 208 10*3/uL 150-450 [facility] Protein+Creatinine Ratio,Uri neon 11-02-2024 PROT:CRE RATIO 153 mg/g CRE Normal 0-200 [facility] Comment on above: Performed By: #### L 100.0500, L501.1400, L501.4100, L501.0900, L501.1105, L501.4405 ####[facility] [address] [place], [address] Protein (U) [Mass/Vol] 7.0 mg/dL Normal 0.0-12.0 [facility] Comment on above: Performed By: #### L 100.0500, L501.1400, L501.4100, L501.0900, L501.1105, L501.4405 ####[facility] [address] [place], [address] UR CREAT 45.90 mg/dL Normal 28.00-217.00 [facility] Comment on above: Performed By: #### L 100.0500, L501.1400, L501.4100, L501.0900, L501.1105, L501.4405 ####[facility] [address] [place], [address] RBC Auto (Bld) [#/Vol]Ordere d By: Penelope Yang on 11-02-2024 RBC (Bld) [#/Vol] 4.49 10*6/uL 4.2-5.4 [facility] Random urine creatinine jay urement (mass/volume)Ordered By: Penelope Yang on 11-02-2024 Creatinine Unsp time (U) [Mass/Vol] 45.90 mg/dL 28.00-217.00 [facility] Serum Creatinine AND GFRon 0 11-02-2024 Creatinine [Mass/Vol] 0.64 mg/dL Low 0.70-1.20 [facility] Comment on above: Performed By: #### L 100.0500, L501.1400, L501.4100, L501.0900, L501.1105, L501.4405 ####[facility] [address] [place], [address] GFR/1.73 sq M.predicted among non-blacks MDRD (S/P/Bld) [Vol rate/Area] 123 mL/min/{1.73_m2} Normal >60 [facility] Comment on above: Result Comment: mL/m in/1.73m2 CKD-EPI Creatinine Equation (2020) Performed By: #### L 100.0500, L501.1400, L501.4100, L501.0900, L501.1105, L501.4405 ####[facility] [address] [place], [place], [address] Serum creatinine measurement (mass/volume)Ordered By: Penelope Yang on 11-02-2024 Creatinine [Mass/Vol] 0.64 mg/dL Low 0.70-1.20 [facility] Serum or plasma alanine rae otransferase (ALT) measurementOrdered By: Penelope Yang on 11-02-2024 ALT [Catalytic activity/Vol] 9 U/L <35 [facility] Serum or plasma uric acid me asurement (mass/volume)Ordered By: Penelope Yang on 11-02-2024 Urate [Mass/Vol] 5.7 mg/dL 2.6-6.0 [facility] Comment on above: The drugs N-Acetylcy steine and Metamizole may falsely depress this assay. Uric Acidon 11-02-2024 URIC 5.7 mg/dL Normal 2.6-6.0 [facility] Comment on above: Result Comment: The drugs N-Acetylcysteine and Metamizole may falsely depress this assay. Performed By: #### L 100.0500, L501.1400, L501.4100, L501.0900, L501.1105, L501.4405 ####[facility] [address] [place], [place], [address] Urine protein measurement (m ass/volume)Ordered By: Penelope Yang on 11-02-2024 Protein (U) [Mass/Vol] 7.0 mg/dL 0.0-12.0 [facility] Urine protein/creatinine mas s ratioOrdered By: Penelope Yang on 11-02-2024 Protein/Creatinine (U) [Mass ratio] 153 mg/g CRE 0-200 [facility] White blood cell (WBC) count Ordered By: Penelope Yang on 11-02-2024 WBC (Bld) [#/Vol] 11.6 10*3/uL High 4.4-11.0 [facility] Laboratory - Chemistry and C hemistry - challengeOrdered By: Penelope Yang on 11-01-2024 Glucose Ql (U) Negative [facility] Laboratory - UrinalysisOrder ed By: Penelope Yang on 11-01-2024 Protein Ql (U) Negative [facility] Office Visit Reporton 11-01-2024 [facility] Office Visit Report [facility]'s [address], [address] [place] [address] OFFICE VISIT Date of Service: 11/01/24 MR#: [id number] Acct: [id number] Name: CLAUDIA FARFAN MARLENE Rep #: [id number] : 1995 Provider: Dr. Penelope byrne MD Age/Sex: 28/F [place] [facility] [place] Status: Signed Intake Vital Signs 08/21/24 08:34 10/20/24 09:02 11/01/24 10:28 Height 5 ft 3 in 5 ft 3 in 5 ft 3 in Weight: 233 lb 6 oz BMI 41.3 BP 135/80 H Intake Visit Reasons: 36wk ob [employer] Required: No Is patient in pain?: No Allergies No Known Allergies Allergy (Verified 11/01/24 10:28) Medications ???Medication ???Instructions ???Recorded ???Confirmed ???Type folic acid 800 mcg tablet 0.8 mg PO DAILY 10/05/22 11/01/24 History ascorbic acid (vitamin C) 500 mg 500 mg PO DAILY 02/23/23 11/01/24 History tablet (C-500) magnesium 200 mg tablet 200 mg PO DAILY 02/23/23 11/01/24 History omega-3 fatty acids 500 mg PO DAILY 02/23/23 11/01/24 History PNV 153-FA 400 mcg-om3 35 mg-dha tab PO DAILY 04/18/24 11/01/24 His tory 25 mg-epa 5 mg-fish oil chew tablet cholecalciferol (vitamin D3) 25 4,000 unit PO DAILY 04/18/2411/01 History mcg (1,000 unit) capsule ondansetron 4 mg disintegrating 4 mg PO Q8H PRN nausea and 5 11/01/24 Rx tablet vomiting #30 tabs Last Menstrual [...] 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 NIPT HPI 36wk ob Details: CALUDIA FARFAN is a 28 year old who presents for routine OB visit. OB Visit THOMAS Calculator Estimated Delivery Date Method Current WG Current Estimate 11/29/24 LMP (Certain) 36w 0d Other Estimates 11/29/24 Ultrasound #1 36w 0d Expected Delivery Route/Plan Labor Preferences- CB/BF [...] ???-???-???-???-???-???- Glucose FHR FuHt Pres Dilation -???-???-???-???-???-???- ??? (more content not included)... Normal [facility] Screening beta-hemolytic Str eptococcus cultureOrdered By: Penelope Yang on 11-01-2024 Beta-hemolytic Streptococcus culture Group B Beta Streptococcus is not isolated. [facility] Laboratory - Chemistry and C hemistry - challengeOrdered By: Cristy Abreu on 10-20-2024 Glucose Ql (U) Negative [facility] Laboratory - UrinalysisOrder ed By: Cristy Abreu on 10-20-2024 Protein Ql (U) Negative [facility] Office Visit Reporton 10-20-2024 [facility] Office Visit Report [facility]'s [address], [address] [place] [address] OFFICE VISIT Date of Service: 10/20/24 MR#: [id number] Acct: [id number] Name: CLAUDIA FARFAN Rep #: [id number] : 1995 Provider: DEEPAK Traylor ams Age/Sex: 28/F Location: [facility] 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 NIPT HPI 34wk ob Details: CLAUDIA [...] ???-???-???-???-???-???- Glucose (more content not included)... Normal [facility] OB Limited With Biometricson 10-04-2024 OB Limited With Biometrics [facility] [address] [place] [address] OB Limited With Biometrics MR#: [id number] Acct: [id number] Name: CLAUDIA FARFAN MARLENE Rep #: [id number] : 1995 F 28 From: Tay Mansfield MD PCP: Care Physician,No Primary Status: REG CLI Study: OB Limited With Biometrics Date of Exam: 10/04 Exam# [id number] Ordering Dr: Evelyn Villa DO PROCEDURE: OB [...] (7.00-86.00, 32 weeks 0 day) Reading Location: [id number] CC: Dr. Evelyn Villa DO; No Primary Care Physician Radiotelegrapher: Signed Normal [facility] Laboratory - Chemistry and C hemistry - challengeOrdered By: Evelyn Lema on 10-02-2024 Glucose Ql (U) Negative [facility] Laboratory - UrinalysisOrder ed By: Evelyn Lema on 10-02-2024 Protein Ql (U) Trace [facility] Visit Reporton 10-02-2024 [facility] Office Visit Report [facility], [address] [place] [address] OFFICE VISIT Date of Service: 10/02/24 MR#: [id number] Acct: [id number] Name: CLAUDIA FARFAN MARLENE Rep #: [id number] : 1995 Provider: Dr. Evelyn Becker DO Age/Sex: 28/F Location: [facility] 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 NIPT HPI 32wk ob Details: CLAUDIA [...] Pres Dilatio (more content not included)... Normal [facility] Laboratory - Chemistry and C hemistry - challengeOrdered By: Gui Sloan on 09-20-2024 Glucose Ql (U) Negative [facility] Laboratory - UrinalysisOrder ed By: Gui Sloan on 09-20-2024 Protein Ql (U) Negative [facility] Office Visit Reporton 09-20-2024 [facility] Office Visit Report [facility]'s [address], [address] [place] [address] OFFICE VISIT Date of Service: 09/20/24 MR#: [id number] Acct: [id number] Name: CLAUDIA FARFAN MARLENE Rep #: [id number] : 1995 Provider: KAREEM head Age/Sex: 28/F [place] [facility] [place] Status: Signed Intake Vital Signs 04/24/24 10:19 08/21/24 08:34 09/20/24 09:57 Height 5 ft 3 in 5 ft 3 in 5 ft 3 in Weight: 225 lb BMI 39.8 BP 108/66 Intake Visit Reasons: 30wk ob Chief Complaint: 30 Week OB [employer] Required: No Is patient in pain?: No [...] 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 Normal [facility] Absolute lymphocyte countOrd ered By: Rina Mead on 08-21-2024 Lymphocytes Auto (Unsp spec) [#/Vol] 1.95 10*3/uL 0.83-4.51 [facility] Absolute neutrophil countOrd ered By: Rina Mead on 08-21-2024 Neutrophils (Bld) [#/Vol] 9.3 10*3/uL High 2.0-7.7 [facility] Automated lymphocyte count a s percentage of total leukocytesOrdered By: Rina Boston on 08-21-2024 Lymphocytes/100 WBC Auto (Unsp spec) 16.3 % Low 19-41 [facility] Basophil percentageOrdered B y: Rina Mead on 08-21-2024 Basophils/100 WBC (Bld) 0.3 % 0-1 [facility] CBC W/Diff, Automatedon Absolute Lymph 1.95 X10 3/uL Normal 0.83-4.51 [facility] Comment on above: Performed By: #### L 100.0100, L501.0250 ####[facility] [address] [place], [address] Absolute Neut 9.3 X10 3/uL High 2.0-7.7 [facility] Comment on above: Performed By: #### L 100.0100, L501.0250 ####[facility] [address] [place], [address] Basophils/100 WBC (Bld) 0.3 % Normal 0-1 [facility] Comment on above: Performed By: #### L 100.0100, L501.0250 ####[facility] [address] [place], [address] Eosinophils/100 WBC (Bld) 0.3 % Normal 0-5 [facility] Comment on above: Performed By: #### L 100.0100, L501.0250 ####[facility] [address] [place], [address] Erythrocyte distribution width (RBC) [Ratio] 13.1 % Normal 11.6-14.6 [facility] Comment on above: Performed By: #### L 100.0100, L501.0250 ####[facility] [address] [place], [address] Hematocrit (Bld) [Volume fraction] 38.4 % Normal 37-47 [facility] Comment on above: Performed By: #### L 100.0100, L501.0250 ####[facility] [address] [place], [address] Hemoglobin (Bld) [Mass/Vol] 12.7 g/dL Normal 12.0-15.0 [facility] Comment on above: Performed By: #### L 100.0100, L501.0250 ####[facility] [address] [place], [address] IG% 0.900 Normal 0.0-0.9 [facility] Comment on above: Result Comment: IG% - Immature Granulocytes (promyelocytes, myelocytes and metamyelocytes) > 1% indicates that a LEFT SHIFT is Present. Performed By: #### L 100.0100, L501.0250 ####[facility] [address] [place], [address] Lymphocytes/100 WBC (Bld) 16.3 % Low 19-41 [facility] Comment on above: Performed By: #### L 100.0100, L501.0250 ####[facility] [address] [place], [address] MCH (RBC) [Entitic mass] 29.6 pg Normal 27.0-32.0 [facility] Comment on above: Performed By: #### L 100.0100, L501.0250 ####[facility] [address] [place], [address] MCHC (RBC) [Mass/Vol] 33.1 g/dL Normal 32-36 [facility] Comment on above: Performed By: #### L 100.0100, L501.0250 ####[facility] [address] [place], [address] MCV (RBC) [Entitic vol] 89.5 fL Normal 81-99 [facility] Comment on above: Performed By: #### L 100.0100, L501.0250 ####[facility] [address] [place], [address] Monocytes/100 WBC (Bld) 5.1 % Normal 0-10 [facility] Comment on above: Performed By: #### L 100.0100, L501.0250 ####[facility] [address] [place], [address] Neutrophils/100 WBC (Bld) 77.1 % High 47-70 [facility] Comment on above: Performed By: #### L 100.0100, L501.0250 ####[facility] [address] [place], [address] Nucleated RBC (Bld) [#/Vol] 0 10*3/uL Normal 0-5 [facility] Comment on above: Performed By: #### L 100.0100, L501.0250 ####[facility] [address] [place], [address] Platelet mean volume (Bld) [Entitic vol] 12.1 fL High 6.2-12.0 [facility] Comment on above: Performed By: #### L 100.0100, L501.0250 ####[facility] [address] [place], [address] Platelets (Bld) [#/Vol] 234 10*3/uL Normal 150-450 [facility] Comment on above: Performed By: #### L 100.0100, L501.0250 ####[facility] [address] [place], [address] RBC (Bld) [#/Vol] 4.29 10*6/uL Normal 4.2-5.4 [facility] Comment on above: Performed By: #### L 100.0100, L501.0250 ####[facility] [address] [place], [address] RDW SD 42.9 fl Normal 35.1-43.9 [facility] Comment on above: Performed By: #### L 100.0100, L501.0250 ####[facility] [address] [place], [address] WBC (Bld) [#/Vol] 12.0 10*3/uL High 4.4-11.0 [facility] Comment on above: Performed By: #### L 100.0100, L501.0250 ####[facility] [address] [place], [address] Eosinophil percentageOrdered By: Rina Mead on 08-21-2024 Eosinophils/100 WBC (Bld) 0.3 % 0-5 [facility] Erythrocyte distribution wid th (RBC) [Ratio]Ordered By: Rina Mead on 08-21-2024 Erythrocyte distribution width (RBC) [Entitic vol] 42.9 fL 35.1-43.9 [facility] Erythrocyte distribution wid th ratioOrdered By: Rnia Mead on 08-21-2024 Erythrocyte distribution width (RBC) [Ratio] 13.1 % 11.6-14.6 [facility] Erythrocyte distribution wid th standard deviationOrdered By: Rina Mead on 08-21-2024 Erythrocyte distribution width (RBC) [Ratio] 42.9 fl 35.1-43.9 [facility] Glucose Challenge Gest 1H 50 paola 08-21-2024 GLU GEST 50g 1H 111 mg/dL Normal 70-140 [facility] Comment on above: Performed By: #### L 100.0100, L501.0250 ####[facility] [address] [place], [address] Glucose measurement at 2 maciej rs post-dose gestational glucose tolerance testOrdered By: Rina Mead on 08-21-2024 Glucose [Mass/Vol] 111 mg/dL 70-[address] [facility] HIVon 08-21-2024 HIV Non-Reactive Normal Nonreactive [facility] Comment on above: Result Comment: Non- Reactive Reactive Repeatedly reactive samples must be confirmed according to CDC recommended confirmatory algorithms. The subresults for either HIVAG or AHIV can be used as an aid in the selection of the confirmation algorithm for reactive samples. Send out specimens with Reactive results to [facility] for confirmation. Order the HIV antibody detection and differentiation: lc#[id number] Performed By: #### L 3890.6006, L509.8002 ####[facility] [address] [place], [address] Hematocrit Auto (Bld) [Volum e fraction]Ordered By: Rina Mead on 08-21-2024 Hematocrit (Bld) [Volume fraction] 38.4 % 37-47 [facility] Hemoglobin measurementOrdere d By: Rina Mead on 08-21-2024 Hemoglobin (Bld) [Mass/Vol] 12.7 g/dL 12.0-15.0 [facility] Immature granulocytes/100 WB C Auto (Bld)Ordered By: Rina Mead on 08-21-2024 Immature granulocytes/100 WBC (Bld) 0.900 % 0.0-0.9 [facility] Comment on above: IG% - Immature Granu locytes (promyelocytes, myelocytes and metamyelocytes) > 1% indicates that a LEFT SHIFT is Present. Laboratory - Chemistry and C hemistry - challengeOrdered By: Penelope Yang on 08-21-2024 Glucose Ql (U) Negative [facility] Laboratory - UrinalysisOrder ed By: Penelope Yang on 08-21-2024 Protein Ql (U) Negative [facility] Lymphocytes Auto (Unsp spec) [#/Vol]Ordered By: Rina Mead on 08-21-2024 Lymphocytes (Bld) [#/Vol] 1.95 10*3/uL 0.83-4.51 [facility] Lymphocytes/100 WBC Auto (Un sp spec)Ordered By: Rina Mead on 08-21-2024 Lymphocytes/100 WBC (Bld) 16.3 % Low 19-41 [facility] MCV (mean corpuscular volume ) determinationOrdered By: Rina Mead on 08-21-2024 MCV (RBC) [Entitic vol] 89.5 fL 81-99 [facility] Mean corpuscular hemoglobin (MCH) determinationOrdered By: Rina Mead on 08-21-2024 MCH (RBC) [Entitic mass] 29.6 pg 27.0-32.0 [facility] Mean corpuscular hemoglobin concentration (MCHC) determinationOrdered By: Rina Mead on 08-21-2024 MCHC (RBC) [Mass/Vol] 33.1 g/dL 32-36 [facility] Mean platelet volume determi nationOrdered By: Rina Mead on 08-21-2024 Platelet mean volume (Bld) [Entitic vol] 12.1 fL High 6.2-12.0 [facility] Monocyte percentageOrdered B y: Rina Mead on 08-21-2024 Monocytes/100 WBC (Bld) 5.1 % 0-10 [facility] Neutrophil percentageOrdered By: Rina Mead on 08-21-2024 Neutrophils/100 WBC (Bld) 77.1 % High 47-70 [facility] No Panel InformationOrdered By: Penelope Yang on 08-21-2024 HIV (1&2) Antibody Non-Reactive Nonreactive [facility] Comment on above: Non-ReactiveReactive Repeatedly reactive samples must be confirmed according to CDC recommended confirmatory algorithms. The subresults for either HIVAG or AHIV can be used as an aid in the selection of the confirmation algorithm for reactive samples.Send out specimens with Reactive results to [facility] for confirmation.Order the HIV antibody detection and differentiation: #[id number] Nucleated red blood cell per centageOrdered By: Rina Mead on 08-21-2024 Nucleated RBC/100 WBC (Bld) [Ratio] 0 % 0-5 [facility] Visit Reporton 08-21-2024 [facility] Visit Report [facility]'s [address], [address] [place] [address] OFFICE VISIT Date of Service: 08/21/24 MR#: [id number] Acct: [id number] Name: CLAUDIA FARFAN Rep #: [id number] : 1995 Provider: Dr. 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 Normal [facility] Platelet countOrdered By: Yumi Mead on 08-21-2024 Platelets (Bld) [#/Vol] 234 10*3/uL 150-450 [facility] RBC Auto (Bld) [#/Vol]Ordere d By: Rina Mead on 08-21-2024 RBC (Bld) [#/Vol] 4.29 10*6/uL 4.2-5.4 [facility] Syphilis Antibodieson 2024 Syphilis Abs Non-Reactive Normal Nonreactive [facility] Comment on above: Performed By: #### L 3890.6006, L509.8002 ####[facility] [address], [address] T. pallidum abOrdered By: Dheeraj Yang on 08-21-2024 Syphilis Total Antibody Non-Reactive Nonreactive [facility] White blood cell (WBC) count Ordered By: Rina Mead on 08-21-2024 WBC (Bld) [#/Vol] 12.0 10*3/uL High 4.4-11.0 [facility] Laboratory - Chemistry and C hemistry - challengeOrdered By: Rina Mead on 07-28-2024 Glucose Ql (U) Negative [facility] Laboratory - UrinalysisOrder ed By: Rina Mead on 07-28-2024 Protein Ql (U) Negative [facility] Visit Reporton 07-28-2024 [facility] Visit Report [facility]'s [address], [address] [place] [address] OFFICE VISIT Date of Service: 07/28/24 MR#: [id number] Acct: [id number] Name: CLAUDIA FARFAN Rep #: [id number] : 1995 Provider: DEEPAK lewis Age/Sex: 28/F [place] [facility] [place] Status: Signed Intake Vital Signs 04/24/24 10:19 06/26/24 09:40 07/28/24 08:36 07/28/24 08:38 Height 5 ft 3 in 5 ft 3 in 5 ft 3 in 5 ft 3 in Weight: 222 lb BMI 39.3 BP 110/72 Intake Visit Reasons: 22wk ob [employer]er Required: No Is patient in pain?: No [...] 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 Date Name GA/Weeks Outcome Route Bth Weight [facility] Singh [facility] live - full term 7# 3oz Male [facility] KW/SM Delivery Date: 08/16/22 Last Updated by: [...] -???-???-???-???-???-???- ???-???-???-???-???-???- (more content not included)... Normal [facility] Laboratory - Chemistry and C hemistry - challengeOrdered By: Cristy Abreu on 06-26-2024 Glucose Ql (U) Negative [facility] Laboratory - UrinalysisOrder ed By: Cristy Abreu on 06-26-2024 Protein Ql (U) Negative [facility] Visit Reporton 06-26-2024 [facility] Visit Report [facility] [address], [address] [place] [address] OFFICE VISIT Date of Service: 06/26/24 MR#: [id number] Acct: [id number] Name: CLAUDIA FARFAN MARLENE Rep #: [id number] : 1995 Provider: DEEPAK Traylor ams Age/Sex: 28/F Location[place] [facility] [place] Status: Signed Intake Vital Signs 04/24/24 10:19 [...] 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 Normal [facility] Laboratory - Chemistry and C hemistry - challengeon 05-24-2024 Glucose Ql (U) Negative [facility] Laboratory - Urinalysison Protein Ql (U) Negative [facility] Visit Reporton 05-24-2024 [facility] Visit Report [facility] [address], [address] [place] [address] OFFICE VISIT Date of Service: 05/24/24 MR#: [id number] Acct: [id number] Name: CLAUDIA FARFAN MARLENE Rep #: [id number] : 1995 Provider: KAREEM head Age/Sex: 28/F Location[place] [facility] [place] Status: Signed Intake Vital Signs 03/12/23 14:17 04/24/24 10:19 05/24/24 08:31 Height 5 ft 3 in 5 ft 3 in 5 ft 3 in Weight: 216 lb BMI 38.2 BP 116/72 Intake Visit Reasons: 12wk OB Chief Complaint: 12 Week OB [employer] Base [employer]er Required: No Is patient in pain?: No [...] 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 (more content not included)... Normal [facility] Chlamydia/GC ABBY aptimaon CHLAMY,NUC ACID Negative Normal Negative [facility] Comment on above: Performed By: #### L 7000.1800, M100.0 ####[facility] [address] [place], [address] GC BY NUC ACID Negative Normal Negative [facility] Comment on above: Result Comment: Perf ormed at: =G - [facility] [address] [place] [id number] Buffing Wheel Operator: Elisabeth Bui MD, Phone: [phone] Performed By: #### L 0.1800, .0 ####[facility] [address] [place], [address] Urine Cultureon 04-25-2024 URC Culture exhibits no growth. Normal [facility] Comment on above: Performed By: #### L 0.1800, M1.0 ####[facility] [address] [place], [address] CBC W/Diff, Automatedon Absolute Lymph 2.41 X10 3/uL Normal 0.83-4.51 [facility] Comment on above: Performed By: #### L 509.4005, L3890.6300, BTS, L100.0100, L3890.6100, L509.8000, L3890.6005 #### [facility] Laboratory [address] [place], [address] Absolute Neut 7.3 X10 3/uL Normal 2.0-7.7 [facility] Comment on above: Performed By: #### L 509.4005, L3890.6300, BTS, L100.0100, L3890.6100, L509.8000, L3890.6005 #### [facility] Laboratory [address] [place], [address] Basophils/100 WBC (Bld) 0.5 % Normal 0-1 [facility] Comment on above: Performed By: #### L 509.4005, L3890.6300, BTS, L100.0100, L3890.6100, L509.8000, L3890.6005 #### [facility] Laboratory [address] [place], [address] Eosinophils/100 WBC (Bld) 0.4 % Normal 0-5 [facility] Comment on above: Performed By: #### L 509.4005, L3890.6300, BTS, L100.0100, L3890.6100, L509.8000, L3890.6005 #### [facility] Laboratory [address] [place], [address] Erythrocyte distribution width (RBC) [Ratio] 12.2 % Normal 11.6-14.6 [facility] Comment on above: Performed By: #### L 509.4005, L3890.6300, BTS, L100.0100, L3890.6100, L509.8000, L3890.6005 #### [facility] Laboratory [address] [place], [address] Hematocrit (Bld) [Volume fraction] 42.1 % Normal 37-47 [facility] Comment on above: Performed By: #### L 509.4005, L3890.6300, BTS, L100.0100, L3890.6100, L509.8000, L3890.6005 #### [facility] Laboratory [address] [place], [address] Hemoglobin (Bld) [Mass/Vol] 14.3 g/dL Normal 12.0-15.0 [facility] Comment on above: Performed By: #### L 509.4005, L3890.6300, BTS, L100.0100, L3890.6100, L509.8000, L3890.6005 #### [facility] [address] [place], [address] IG% 0.800 Normal 0.0-0.9 [facility] Comment on above: Result Comment: IG% - Immature Granulocytes (promyelocytes, myelocytes and metamyelocytes) > 1% indicates that a LEFT SHIFT is Present. Performed By: #### L 509.4005, L3890.6300, BTS, L100.0100, L3890.6100, L509.8000, L3890.6005 #### [facility] Laboratory [address] [place], [address] Lymphocytes/100 WBC (Bld) 22.8 % Normal 19-41 [facility] Comment on above: Performed By: #### L 509.4005, L3890.6300, BTS, L100.0100, L3890.6100, L509.8000, L3890.6005 #### [facility] Laboratory [address] [place], [address] MCH (RBC) [Entitic mass] 29.7 pg Normal 27.0-32.0 [facility] Comment on above: Performed By: #### L 509.4005, L3890.6300, BTS, L100.0100, L3890.6100, L509.8000, L3890.6005 #### [facility] Laboratory [address] [place], [address] MCHC (RBC) [Mass/Vol] 34.0 g/dL Normal 32-36 [facility] Comment on above: Performed By: #### L 509.4005, L3890.6300, BTS, L100.0100, L3890.6100, L509.8000, L3890.6005 #### [facility] Laboratory [address] [place], [address] MCV (RBC) [Entitic vol] 87.3 fL Normal 81-99 [facility] Comment on above: Performed By: #### L 509.4005, L3890.6300, BTS, L100.0100, L3890.6100, L509.8000, L3890.6005 #### [facility] Laboratory [address] [place], [address] Monocytes/100 WBC (Bld) 6.8 % Normal 0-10 [facility] Comment on above: Performed By: #### L 509.4005, L3890.6300, BTS, L100.0100, L3890.6100, L509.8000, L3890.6005 #### [facility] Laboratory [address] [place], [address] Neutrophils/100 WBC (Bld) 68.7 % Normal 47-70 [facility] Comment on above: Performed By: #### L 509.4005, L3890.6300, BTS, L100.0100, L3890.6100, L509.8000, L3890.6005 #### [facility] Laboratory [address] [place], [address] Nucleated RBC (Bld) [#/Vol] 0 10*3/uL Normal 0-5 [facility] Comment on above: Performed By: #### L 509.4005, L3890.6300, BTS, L100.0100, L3890.6100, L509.8000, L3890.6005 #### [facility] Laboratory [address] [place], [address] Platelet mean volume (Bld) [Entitic vol] 10.9 fL Normal 6.2-12.0 [facility] Comment on above: Performed By: #### L 509.4005, L3890.6300, BTS, L100.0100, L3890.6100, L509.8000, L3890.6005 #### [facility] Laboratory [address] [place], [address] Platelets (Bld) [#/Vol] 293 10*3/uL Normal 150-450 [facility] Comment on above: Performed By: #### L 509.4005, L3890.6300, BTS, L100.0100, L3890.6100, L509.8000, L3890.6005 #### [facility] Laboratory [address] [place], [address] RBC (Bld) [#/Vol] 4.82 10*6/uL Normal 4.2-5.4 [facility] Comment on above: Performed By: #### L 509.4005, L3890.6300, BTS, L100.0100, L3890.6100, L509.8000, L3890.6005 #### [facility] Laboratory [address] [place], [address] RDW SD 38.8 fl Normal 35.1-43.9 [facility] Comment on above: Performed By: #### L 509.4005, L3890.6300, BTS, L100.0100, L3890.6100, L509.8000, L3890.6005 #### [facility] Laboratory [address] [place], [address] WBC (Bld) [#/Vol] 10.6 10*3/uL Normal 4.4-11.0 [facility] Comment on above: Performed By: #### L 509.4005, L3890.6300, BTS, L100.0100, L3890.6100, L509.8000, L3890.6005 #### [facility] Laboratory [address] [place], [address] HIV - WCHon 04-24-2024 HIV Non-Reactive Normal Nonreactive [facility] Comment on above: Order Comment: Reaso n for Exam: Performed By: #### L 509.4005, L3890.6300, BTS, L100.0100, L3890.6100, L509.8000, L3890.6005 ####[facility] [address] [place], [place], [address] Hepatitis B Surface Antigeno n 04-24-2024 HEP B Surf Ag Non-Reactive Normal Nonreactive [facility] Comment on above: Order Comment: Reaso n for Exam: Performed By: #### L 509.4005, L3890.6300, BTS, L100.0100, L3890.6100, L509.8000, L3890.6005 ####[facility] [address] [place], [place], [address] Hepatitis C Antibodyon 04-24 Hepatitis C AB Non-Reactive Normal Nonreactive [facility] Comment on above: Order Comment: Reaso n for Exam: Result Comment: Non Reactive: < 0.8 Equivocal: >/= 0.8 to < 1.0 Reactive: >/= 1.0 The CDC requires that a reactive/equivocal HCV antibody result be sent out for confirmation. HCV Quant by PCR testing. Performed By: #### L 509.4005, L3890.6300, BTS, L100.0100, L3890.6100, L509.8000, L3890.6005 ####[facility] [address] [place], [address] L509.8000on 04-24-2024 Syphilis Abs Non-Reactive Normal [facility] Comment on above: Order Comment: Reaso n for Exam: Performed By: #### L 509.4005, L3890.6300, BTS, L100.0100, L3890.6100, L509.8000, L3890.6005 ####[facility] [address] [place], [place], [address] [facility] Visit Reporton 04-24-2024 [facility] Office Visit Report [facility]'s [address], [address] [place] [address] OFFICE VISIT Date of Service: 04/24/24 MR#: [id number] Acct: [id number] Name: CLAUDIA FARFAN MARLENE Rep #: [id number] : 1995 Provider: Dr. Evelyn Becker, Age/Sex: 28/F Location: [facility] 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 (more content not included)... Normal [facility] Rubella IgGon 04-24-2024 Rubella IgG Reactive Normal Nonreactive [facility] Comment on above: Order Comment: Reaso n for Exam: Result Comment: Anti body Results Interpretation of Immune Status Non Reactive Presumed Non-Immune Equivocal Equivocal Reactive Presumed Immune Performed By: #### L 509.4005, L3890.6300, BTS, L100.0100, L3890.6100, L509.8000, L3890.6005 #### [facility] Laboratory [address] [place], [place], [address] Type AND Screenon 04-24-2024 ABO and Rh group Nom (Bld) Blood group A Rh(D) positive Normal [facility] Comment on above: Order Comment: PN Performed By: #### L 509.4005, L3890.6300, BTS, L100.0100, L3890.6100, L509.8000, L3890.6005 #### [facility] Laboratory [address] [place], [place], [address] CNOVon 03-17-2024 CNOV Office Visit (AGFAMP [facility]UNG) ----- CLAUDIA FARFAN ([id number]) 1995 F Date Time Provider Department 03/17/24 9:00 AM [facility] During your visit today, we recorded the following information about you: Temperature Pulse Blood pressure Weight 97.7 degrees 72/minute 110/70 91.6 kg Height 1.6 m Hector Winchester APRN.ALLIE 03/26/2024 2:27 PM Signed Subjective Claudia Farfan [...] normal. J (more content not included)... Normal [facility] Tele[facility] (CATHY) ----- CLAUDIA FARFAN ([id number]) 1995 F Date Time Provider Department 02/16/24 [facility] During your visit today, we recorded the following information about you: Mitul Donohue MA 02/16/2024 2:44 PM Signed ----- Message from Hector Winchester APRN.SECURITY ASSOCIATE sent at 02/16/2024 2:41 PM EDT ----- Please notify patient results are normal. Thank you. Hector Winchester APRN.Mitul Rowe MA 02/16/2024 2:44 PM Signed Patient notified. Mitul Donohue MA Allergies As of Date: 02/16/2024 (No Known Allergies) Date Reviewed: 01/04/2024 Reviewed by: Hector Winchester APRN.SECURITY ASSOCIATE - Fully Assessed Reason for Visit: Results [95] Prescriptions as of 02/16/2024 - FLUoxetine (PROZAC) 40 mg capsule Take 1 capsule by mouth once daily. Problem List As Of Date 02/16/2024 Noted Resolved MADDIE (generalized anxiety disorder) [F41.1] 01/04/2024 Environmental allergies [Z91.09] Insulin resistance [E88.819] PCOS (polycystic ovarian syndrome) [E28.2] Encounter Status:Closed by MITUL DONOHUE on 02/16/24 Normal [facility] Urinalysis complete panel (U )on 02-15-2024 Bacteria LM.HPF (Urine sed) [#/Area] Negative Normal Negative [facility] Comment on above: Order Comment: Speci men Type: URINE SPECIMEN Ordering Facility: [facility] Address: [address] [place] [address] Performed By: #### 2 4356-8 #### [facility] CLIA [id number] [address] [place] [address] [place] Bilirubin Ql (U) Negative Normal Negative [facility] Comment on above: Order Comment: Speci men Type: URINE SPECIMEN Ordering Facility: [facility] Address: [address] [place] [address] Performed By: #### 2 4356-8 #### [facility] CLIA [id number] [address] [place] [address] [place] Clarity (Unsp spec) Clear Normal Clear [facility] Comment on above: Order Comment: Speci men Type: URINE SPECIMEN Ordering Facility: [facility] Address: [address] [place] [address] Performed By: #### 2 4356-8 #### [facility] CLIA [id number] [address] [place] [address] [place] Color (U) Yellow Normal Yellow [facility] Comment on above: Order Comment: Speci men Type: URINE SPECIMEN Ordering Facility: [facility] Address: [address] [place] [address] Performed By: #### 2 4356-8 #### [facility] CLIA [id number] [address] [place] [address] [place] Epithelial cells LM.HPF (Urine sed) [#/Area] None Seen Normal [facility] Comment on above: Order Comment: Speci men Type: URINE SPECIMEN Ordering Facility: [facility] Address: [address] [place] [address] Performed By: #### 2 4356-8 #### [facility] CLIA [id number] [address] [place] [address] [place] Glucose Test strip (U) [Mass/Vol] Negative Normal Negative [facility] Comment on above: Order Comment: Speci men Type: URINE SPECIMEN Ordering Facility: [facility] Address: [address] [place] [address] Performed By: #### 2 4356-8 #### [facility] CLIA [id number] [address] [place] [address] [place] Hemoglobin Ql (U) Negative Normal Negative [facility] Comment on above: Order Comment: Speci men Type: URINE SPECIMEN Ordering Facility: [facility] Address: [address] [place] [address] Performed By: #### 2 4356-8 #### [facility] CLIA [id number] [address] [place] [address] [place] Hyaline casts (Urine sed) [#/Area] 0 /[LPF] Normal 0 /LPF [facility] Comment on above: Order Comment: Speci men Type: URINE SPECIMEN Ordering Facility: [facility] Address: [address] [place] [address] Performed By: #### 2 4356-8 #### [facility] CLIA [id number] [address] [place] [address] [place] Ketones Ql (U) Negative Normal Negative [facility] Comment on above: Order Comment: Speci men Type: URINE SPECIMEN Ordering Facility: [facility] Address: [address] [place] [address] Performed By: #### 2 4356-8 #### [facility] CLIA [id number] [address] [place] [address] [place] Leukocyte esterase Test strip Ql (U) Trace Abnormal Negative [facility] Comment on above: Order Comment: Speci men Type: URINE SPECIMEN Ordering Facility: [facility] Address: [address] [place] [address] Performed By: #### 2 4356-8 #### [facility] CLIA [id number] [address] [place] [address] [place] Nitrite Ql (U) Negative Normal Negative [facility] Comment on above: Order Comment: Speci men Type: URINE SPECIMEN Ordering Facility: [facility] Address: [address] [place] [address] Performed By: #### 2 4356-8 #### [facility] CLIA [id number] [address] [place] [address] [place] pH (U) 7.0 [pH] Normal <8.5 [facility] Comment on above: Order Comment: Speci men Type: URINE SPECIMEN Ordering Facility: [facility] Address: [address] [place] [address] Performed By: #### 2 4356-8 #### [facility] CLIA [id number] [address] [place] [address] [place] Protein (U) [Mass/Vol] Negative Normal Negative [facility] Comment on above: Order Comment: Speci men Type: URINE SPECIMEN Ordering Facility: [facility] Address: [address] [place] [address] Performed By: #### 2 4356-8 #### [facility] CLIA [id number] [address] [place] [address] [place] RBC LM.HPF (Urine sed) [#/Area] 0-2 /HPF Normal 0-2 /HPF [facility] Comment on above: Order Comment: Speci men Type: URINE SPECIMEN Ordering Facility: [facility] Address: [address] [place] [address] Performed By: #### 2 4356-8 #### [facility] CLIA [id number] [address] [place] [address] [place] Specific gravity (U) [Rel density] 1.021 Normal 1.005-1.030 [facility] Comment on above: Order Comment: Speci men Type: URINE SPECIMEN Ordering Facility: [facility] Address: [address] [place] [address] Performed By: #### 2 4356-8 #### [facility] CLIA [id number] [address] [place] [address] [place] Urobilinogen Ql (U) 0.2 EU/dL Normal 0.2-1.0 EU/dL [facility] Comment on above: Order Comment: Speci men Type: URINE SPECIMEN Ordering Facility: [facility] Address: [address] [place] [address] Performed By: #### 2 4356-8 #### [facility] CLIA [id number] [address] [place] [address] [place] WBC LM.HPF (Urine sed) [#/Area] 0-5 /HPF Normal 0-5 /HPF [facility] Comment on above: Order Comment: Speci men Type: URINE SPECIMEN Ordering Facility: [facility] Address: [address] [place] [address] Performed By: #### 2 4356-8 #### [facility] CLIA [id number] [address] [place] [address] [place] CNOVon 01-04-2024 CNMCKENNA Office Visit ([facility]) ----- CLAUDIA FARFAN ([id number]) 1995 F Date Time Provider Department 01/04/24 11:20 AM [facility] During your visit today, we recorded the following information about you: Temperature Pulse Blood pressure Weight 98.3 degrees 73/minute 110/70 100.2 kg Height 1.6 m Hector Winchester APRN.SECURITY ASSOCIATE 01/04/2024 6:05 PM Signed Subjective Claudia Farfan is a [...] PCOS (polycystic ovarian syndrome) PAST SURGICAL HISTORY 2001: CYSTO.PANENDO Comment: Cyst removed under tongue No [...] not frequent Last Pap - January 2022 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 Normal [facility] Absolute lymphocyte countOrd ered By: ED PROVIDER on 03-12-2023 Lymphocytes Auto (Unsp spec) [#/Vol] 2.17 10*3/uL 0.83-4.51 [facility] Basophil percentageOrdered B y: Jaylan Pedroza on 03-12-2023 Basophil percentage 0 SEEN /hpf 0-5 [facility] Bilirubin [Mass/Vol] 0.60 mg/dL 0.20-1.00 [facility] Comment on above: For patients on eltr ombopag therapy, use of Dimension [place] TBIL is not recommended. Chloride [Moles/Vol] 106 mmol/L 98-107 [facility] Glucose [Mass/Vol] 120 mg/dL 74-[address] [facility] Comment on above: Fasting Glucose resu lt from 100 to 125 mg/dL suggests IMPAIRED HOMEOSTASIS per A.D.A. criteria. Potassium [Moles/Vol] 3.5 mmol/L 3.5-5.1 [facility] Protein [Mass/Vol] 7.6 g/dL 6.4-8.[address] [facility] Sodium [Moles/Vol] 139 mmol/L 136-[address] [facility] Basophil percentageOrdered B y: ED PROVIDER on 03-12-2023 Basophils/100 WBC (Bld) 0.4 % 0-1 [facility] Eosinophils/100 WBC (Bld) 1.0 % 0-5 [facility] Neutrophils (Bld) [#/Vol] 13.4 10*3/uL 2.0-7.7 [facility] Neutrophils/100 WBC (Bld) 79.3 % 47-70 [facility] WBC (Bld) [#/Vol] 16.9 10*3/uL 4.4-11.0 [facility] Beta hCG serum qualOrdered B y: Jaylan Pedroza on 03-12-2023 Beta HCG ( test) Ql Negative [facility] Bilirubin Test strip Ql (U)O rdered By: Jaylan Pedroza on 03-12-2023 Bilirubin Ql (U) Negative Negative [facility] Blood erythrocytes count (nu mber/volume)Ordered By: ED PROVIDER on 03-12-2023 RBC (Bld) [#/Vol] 4.92 10*6/uL 4.2-5.4 [facility] Blood hemoglobin measurement (mass/volume)Ordered By: ED PROVIDER on 03-12-2023 Hemoglobin (Bld) [Mass/Vol] 14.0 g/dL 12.0-15.0 [facility] Blood lymphocytes/100 leukoc ytesOrdered By: ED PROVIDER on 03-12-2023 Lymphocytes/100 WBC (Bld) 12.8 % 19-41 [facility] Blood monocytes/100 leukocyt esOrdered By: ED PROVIDER on 03-12-2023 Monocytes/100 WBC (Bld) 6.1 % 0-10 [facility] Blood platelet mean volumeOr dered By: ED PROVIDER on 03-12-2023 Platelet mean volume (Bld) [Entitic vol] 10.5 fL 6.2-12.0 [facility] Determination of erythrocyte mean corpuscular volume (MCV)Ordered By: ED PROVIDER on 03-12-2023 MCV (RBC) [Entitic vol] 86.0 fL 81-99 [facility] Hematocrit Auto (Bld) [Volum e fraction]Ordered By: ED PROVIDER on 03-12-2023 Hematocrit (Bld) [Volume fraction] 42.3 % 37-47 [facility] Ketones Test strip Ql (U)Ord ered By: Jaylan Pedroza on 03-12-2023 Ketones Ql (U) Negative Negative [facility] Laboratory - Chemistry and C hemistry - challengeOrdered By: Jaylan Pedroza on 03-12-2023 ALP [Catalytic activity/Vol] 91 U/L 45-117 [facility] ALT [Catalytic activity/Vol] 36 U/L 13-56 [facility] CO2 [Moles/Vol] 24.0 mmol/L 21.0-32.0 [facility] Globulin (S) [Mass/Vol] 4.0 g/dL 2.2-4.2 [facility] Lipase [Catalytic activity/Vol] 50 U/L 13-75 [facility] Comment on above: Please note:LIPASE r evised reference range effective 22. New Lipase methodology. Expected to produce lower values than the previous assay method. NEW Reference Range: 13 - 75 U/L Urea nitrogen/Creatinine [Mass ratio] 20.0 mg/mg 10-20 [facility] Laboratory - Hematology and Cell countsOrdered By: ED PROVIDER on 03-12-2023 Erythrocyte distribution width (RBC) [Entitic vol] 39.1 fL 35.1-43.9 [facility] Erythrocyte distribution width (RBC) [Ratio] 12.6 % 11.6-14.6 [facility] Immature granulocytes/100 WBC (Bld) 0.400 % 0.0-0.9 [facility] Comment on above: IG% - Immature Granu locytes (promyelocytes, myelocytes and metamyelocytes) > 1% indicates that a LEFT SHIFT is Present. MCH (RBC) [Entitic mass] 28.5 pg 27.0-32.0 [facility] Nucleated RBC/100 WBC (Bld) [Ratio] 0 % 0-5 [facility] MCHC Auto (RBC) [Mass/Vol]Or dered By: ED PROVIDER on 03-12-2023 MCHC (RBC) [Mass/Vol] 33.1 g/dL 32-36 [facility] Mucus LM Ql (Urine sed)Order ed By: Jaylan Pedroza on 03-12-2023 Mucus Ql (Urine sed) 0 SEEN /hpf [facility] Nitrite Test strip Ql (U)Ord ered By: Jaylan Pedroza on 03-12-2023 Nitrite Ql (U) Negative Negative [facility] No Panel InformationOrdered By: Jaylan Pedroza on 03-12-2023 Estimated Creatinine Clearance Calc 69.90 ml/min [facility] Estimated GFR (MDRD) Amer 86 mL/min >60 [facility] Comment on above: GFR Calc Estimated GFR (MDRD) Non-Af Amer 71 mL/min >60 [facility] Comment on above: Non- GFR Calc Platelets bldOrdered By: ED PROVIDER on 03-12-2023 Platelets (Bld) [#/Vol] 330 10*3/uL 150-450 [facility] Protein Test strip Ql (U)Ord ered By: Jaylan Pedroza on 03-12-2023 Protein Ql (U) Negative Negative [facility] Serum or plasma albumin jay urement (mass/volume)Ordered By: Jaylan Pedroza on 03-12-2023 Albumin [Mass/Vol] 3.6 g/dL 3.2-5.[address] [facility] Serum or plasma albumin/glob ulin mass ratioOrdered By: Jaylan Pedroza on 03-12-2023 Albumin/Globulin [Mass ratio] 0.9 {ratio} 0.9-2.4 [facility] Serum or plasma calcium jay urement (mass/volume)Ordered By: Jaylan Pedroza on 03-12-2023 Calcium [Mass/Vol] 8.9 mg/dL 8.5-10.[address] [facility] Serum or plasma creatinine m easurement (mass/volume)Ordered By: Jaylan Pedroza on 03-12-2023 Creatinine [Mass/Vol] 1.00 mg/dL 0.55-1.02 [facility] Comment on above: The validity of the calculated GFR & GFRAA in patients over 70 years has not been determined. Clinical correlation is essential. Serum or plasma urea nitroge n measurement (mass/volume)Ordered By: Jaylan Pedroza on 03-12-2023 Urea nitrogen [Mass/Vol] 20 mg/dL 7-18 [facility] Squamous epithelial cells de tection in urine sediment by light microscopyOrdered By: Jaylan Pedroza on 03-12-2023 Epithelial cells.squamous LM Ql (Urine sed) 0-5 SEEN /hpf 5-10 [facility] Thin prep Papanicolaou smear with manual screeningOrdered By: Jaylan Pedroza on 03-12-2023 Thin prep Papanicolaou smear with manual screening 43 U/L 15-37 [facility] Thin prep Papanicolaou smear with manual screening 9 5-15 [facility] Urine blood detectionOrdered By: Jaylan Pedroza on 03-12-2023 RBC Ql (U) Negative Negative [facility] RBC Ql (U) 0 SEEN /hpf 0-5 [facility] Urine clarityOrdered By: Cheryle Pedroza on 03-12-2023 Clarity (U) Clear Clear [facility] Urine color determinationOrd ered By: Jaylan Pedroza on 03-12-2023 Color (U) Yellow Yellow [facility] Urine glucose detectionOrder ed By: Jaylan Pedroza on 03-12-2023 Glucose Ql (U) Normal mg/dl Normal [facility] Urine leukocyte esterase det ection by dipstickOrdered By: Jaylan Pedroza on 03-12-2023 Leukocyte esterase Test strip Ql (U) Negative Negative [facility] Urine pHOrdered By: Jaylan vang on 03-12-2023 pH (U) 7.0 [pH] 5.0 - 8.0 [facility] Urine sediment bacteria coun t by microscopy (number/high power field)Ordered By: Jaylan Pedroza on 03-12-2023 Bacteria LM.HPF (Urine sed) [#/Area] 0 /[HPF] None Seen [facility] Urine specific gravity measu rementOrdered By: Jaylan Pedroza on 03-12-2023 Specific gravity (U) [Rel density] 1.005 1.002-1.030 [facility] Urobilinogen Auto test strip Ql (U)Ordered By: Jaylan Pedroza on 03-12-2023 Urobilinogen Ql (U) Normal mg/dl Normal [facility] Laboratory - Chemistry and C hemistry - challengeOrdered By: Vincent Blake on 03-02-2023 HCG ( test) Ql (U) Negative [facility] Comment on above: Very dilute urine sp ecimens, as indicated by a low specificgravity, may not contain denial management representative levels of hCG. If is still suspected, a first morning urinespecimen should be collected 48 hours later and tested. BASIC METABOLIC PANELon Anion gap [Moles/Vol] 13 mmol/L Normal 10 - 20 [facility] Comment on above: Order Comment: RESUL TS RB TO HANK GATES, 10/18/2022 00:36 Performed By: #### U ARFX #### [address] [address] Potassium [Moles/Vol] 2.9 mmol/L Critically low 3.5 - 5.3 [facility] Comment on above: Order Comment: RESUL TS RB TO HANKMOHSEN GATES, 10/18/2022 00:36 Result Comment: Conf irmed by repeat analysis RESULTS RB TO HANKMOHSEN GATES, 10/18/2022 00:36 Performed By: #### U ARFX #### [address] [address] Calcium [Mass/Vol] 9.6 mg/dL Normal 8.6 - 10.3 [facility] Comment on above: Order Comment: RESUL TS RB TO HANK GATES, 10/18/2022 00:36 Performed By: #### U ARFX #### [address] [address] Chloride [Moles/Vol] 103 mmol/L Normal 98 - 107 [facility] Comment on above: Order Comment: RESUL TS RB TO HANK GATES, 10/18/2022 00:36 Performed By: #### U ARFX #### [address] [address] Creatinine [Mass/Vol] 1.02 mg/dL Normal 0.50 - 1.05 [facility] Comment on above: Order Comment: RESUL TS RB TO HANK GATES, 10/18/2022 00:36 Performed By: #### U ARFX #### [address] [address] GFR/1.73 sq M.predicted among non-blacks MDRD (S/P/Bld) [Vol rate/Area] 77 mL/min/{1.73_m2} Normal >90 [facility] Comment on above: Order Comment: RESUL TS RB TO HANK DUBON, 10/18/2022 00:36 Result Comment: CALC ULATIONS OF ESTIMATED GFR ARE PERFORMED USING THE 2020 CKD-EPI STUDY REFIT EQUATION WITHOUT THE RACE VARIABLE FOR THE IDMS-TRACEABLE CREATININE METHODS. https://jasn.asnjournals.org/content/early//ASN.18071 89414 Performed By: #### U ARFX #### [address] [address] Glucose [Mass/Vol] 98 mg/dL Normal 74 - 99 [facility] Comment on above: Order Comment: RESUL TS RB TO HANKMOHSEN GATES, 10/18/2022 00:36 Performed By: #### U ARFX #### [address] [address] HCO3 (Bld) [Moles/Vol] 26 mmol/L Normal 21 - 32 [facility] Comment on above: Order Comment: RESUL TS RB TO HANK GATES, 10/18/2022 00:36 Performed By: #### U ARFX #### [address] [address] Sodium [Moles/Vol] 139 mmol/L Normal 136 - 145 [facility] Comment on above: Order Comment: RESUL TS RB TO HANK GATES, 10/18/2022 00:36 Performed By: #### U ARFX #### [address] [address] Urea nitrogen [Mass/Vol] 21 mg/dL Normal 6 - 23 [facility] Comment on above: Order Comment: RESUL TS RB TO HANK DUBON, 10/18/2022 00:36 Performed By: #### U ARFX #### [place] [id number] CBC AND DIFFERENTIALon 10-18 % AUTOMATED IMMATURE GRAN 0.4 % Normal 0.0 - 0.9 [facility] Comment on above: Result Comment: Dione ture Granulocyte Count (IG) includes promyelocytes, myelocytes and metamyelocytes but does not include bands. Percent differential counts (%) should be interpreted in the context of the absolute cell counts (cells/L). Performed By: #### C BCDF #### [place] [id number] DIFFERENTIAL SEE MANUAL DIFF Normal [facility] Comment on above: Performed By: #### C BCDF #### [place] [id number] Erythrocyte distribution width (RBC) [Ratio] 12.7 % Normal 11.5 - 14.5 [facility] Comment on above: Performed By: #### C BCDF #### [place] [id number] Hematocrit (Bld) [Volume fraction] 44.4 % Normal 36.0 - 46.0 [facility] Comment on above: Performed By: #### C BCDF #### [place] [id number] Hemoglobin (Bld) [Mass/Vol] 14.7 g/dL Normal 12.0 - 16.0 [facility] Comment on above: Performed By: #### C BCDF #### [place] [id number] MCHC (RBC) [Mass/Vol] 33.1 g/dL Normal 32.0 - 36.0 [facility] Comment on above: Performed By: #### C BCDF #### [place] [id number] MCV (RBC) [Entitic vol] 86 fL Normal 80 - 100 [facility] Comment on above: Performed By: #### C BCDF #### [place] [id number] Platelets (Bld) [#/Vol] 310 10*3/uL Normal 150 - 450 [facility] Comment on above: Performed By: #### C BCDF #### [address] [address] RBC 5.17 x10E12/L Normal 4.00 - 5.20 [facility] Comment on above: Performed By: #### C BCDF #### [address] [address] WBC (Bld) [#/Vol] 11.3 10*3/uL Normal 4.4 - 11.3 [facility] Comment on above: Performed By: #### C BCDF #### [address] [address] [address] ABDOMEN AND PELVIS W IV C ONTRASTon 10-18-2022 CT ABDOMEN AND PELVIS W IV CONTRAST Patient Name: CLAUDIA FARFAN STUDY: CT ABDOMEN AND PELVIS W IV CONTRAST; 10/18/2022 1:00 am INDICATION: Acute abdominal pain . COMPARISON: CT abdomen pelvis 07/17/2017 ACCESSION NUMBER(S): [id number] ORDERING CLINICIAN: ANA SHABAZZ TECHNIQUE: Axial CT [...] Electronically signed by: NILSA MANN MD Normal [facility] HEPATIC FUNCTION PANELon Albumin [Mass/Vol] 4.4 g/dL Normal 3.4 - 5.0 [facility] Comment on above: Performed By: #### H EPFP #### [place] [address] ALP [Catalytic activity/Vol] 85 U/L Normal 33 - 110 [facility] Comment on above: Performed By: #### H EPFP #### [place] [id number] ALT [Catalytic activity/Vol] 20 U/L Normal 7 - 45 [facility] Comment on above: Result Comment: Caryl ents treated with Sulfasalazine may generate falsely decreased results for ALT. Performed By: #### H EPFP #### [place] [id number] AST [Catalytic activity/Vol] 26 U/L Normal 9 - 39 [facility] Comment on above: Performed By: #### H EPFP #### [address] [address] Bilirubin [Mass/Vol] 0.4 mg/dL Normal 0.0 - 1.2 [facility] Comment on above: Performed By: #### H EPFP #### [address] [address] Bilirubin.indirect [Mass/Vol] 0.1 mg/dL Normal 0.0 - 0.3 [facility] Comment on above: Performed By: #### H EPFP #### [address] [address] Protein [Mass/Vol] 7.6 g/dL Normal 6.4 - 8.2 [facility] Comment on above: Performed By: #### H EPFP #### [address] [address] LACTATEon 10-18-2022 Lactate [Moles/Vol] 1.5 mmol/L Normal 0.4 - 2.0 [facility] Comment on above: Result Comment: Julia puncture immediately after or during the administration of Metamizole may lead to falsely low results. Testing should be performed immediately prior to Metamizole dosing. Performed By: #### L ACT #### [address] [address] Lactate [Moles/Vol] 2.8 mmol/L High 0.4 - 2.0 [facility] Comment on above: Result Comment: Julia puncture immediately after or during the administration of Metamizole may lead to falsely low results. Testing should be performed immediately prior to Metamizole dosing. Performed By: #### L ACT #### [address] [address] LIPASEon 10-18-2022 Lipase [Catalytic activity/Vol] 37 U/L Normal 9 - 82 [facility] Comment on above: Result Comment: Julia puncture immediately after or during the administration of Metamizole may lead to falsely low results. Testing should be performed immediately prior to Metamizole dosing. V-mqbtmh-x-benzoquinone imine (metabolite of Acetaminophen) will generate erroneously low results in samples for patients that have taken toxic doses of acetaminophen. Performed By: #### L IPAS #### [address] [address] MANUAL DIFFERENTIALon 2022 % BAND NEUTROPHIL 2.0 % Normal 0.0 - 5.0 [facility] Comment on above: Performed By: #### M DIFF #### [address] [address] % BASOPHIL 0.0 % Normal 0.0 - 2.0 [facility] Comment on above: Performed By: #### M DIFF #### [address] [address] % EOSINOPHIL 1.0 % Normal 0.0 - 6.0 [facility] Comment on above: Performed By: #### M DIFF #### [address] [address] % LYMPH-ATYPICAL 14.0 % Normal 0.0 - 2.0 [facility] Comment on above: Performed By: #### M DIFF #### [address] [address] % LYMPHOCYTE 31.0 % Normal 13.0 - 44.0 [facility] Comment on above: Performed By: #### M DIFF #### [address] [address] % MONOCYTE 5.0 % Normal 2.0 - 10.0 [facility] Comment on above: Performed By: #### M DIFF #### [address] [address] % SEG NEUTROPHIL 47.0 % Normal 40.0 - 80.0 [facility] Comment on above: Result Comment: Perc ent differential counts (%) should be interpreted in the context of the absolute cell counts (cells/L). Performed By: #### M DIFF #### [address] [address] ANC 5.54 x10E9/L Normal 1.20 - 7.70 [facility] Comment on above: Performed By: #### M DIFF #### [address] [address] BAND NEUTROPHIL 0.23 x10E9/L Normal 0.00 - 0.70 [facility] Comment on above: Performed By: #### M DIFF #### [address] [address] BASOPHIL 0.00 x10E9/L Normal 0.00 - 0.10 [facility] Comment on above: Performed By: #### M DIFF #### [address] [address] EOSINOPHIL 0.11 x10E9/L Normal 0.00 - 0.70 [facility] Comment on above: Performed By: #### M DIFF #### [address] [address] LYMPH-ATYPICAL 1.58 x10E9/L High 0.00 - 0.50 [facility] Comment on above: Performed By: #### M DIFF #### [address] [address] LYMPHOCYTE 3.50 x10E9/L Normal 1.20 - 4.80 [facility] Comment on above: Performed By: #### M DIFF #### [address] [address] MONOCYTE 0.57 x10E9/L Normal 0.10 - 1.00 [facility] Comment on above: Performed By: #### M DIFF #### [address] [address] SEG NEUTROPHIL 5.31 x10E9/L Normal 1.20 - 7.00 [facility] Comment on above: Performed By: #### M DIFF #### [address] [address] Provider Note - ED v3on 06-0 Provider [...] Reference Range: STRAW,YELLOW Appearance, Urine HAZY Specific [place], Urine 1.047 H pH, Urine 6.0 Protein, Urine 30(1+) A Glucose, Urine NEGATIVE Blood, Urine LARGE(3+) A Ketones, Urine NEGATIVE Bilirubin, Urine NEGATIVE Urobilinogen, Urine <2.0 Nitrite, Urine Negative Leukocyte Esterase, Urine TRACE A Urinalysis, Microscopic 18-Oct-2022 03:41:00 ResultValue White Cells 2 Red Blood Cells >182 A Epithelial Cells, Squamous 4 Lactate, Level Trending View [id number] 03:39:00 17-Oct-2022 23:54:00 Lactate, Level1.5 2.8 H [...] Dixon sign is reported negative by the roof technician. Ultrasound Gallbladder [Oct 18 2022 2:49AM] Impression: Gallbladder wall thickening with pericholecystic fluid. Findings can be seen with acute cholecystitis. Correlate with laboratory (more content not included)... Normal [facility] RED CELL MORPHOLOGYon 2022 RBC morphology finding Nom (Bld) SEE COMMENT Normal [facility] Comment on above: Result Comment: NO S IGNIFICANT RBC ABNORMALITIES SEEN ON SMEAR REVIEW. Performed By: #### U ARFX #### [address] [place] [address] Risk Screen - Adult Emergenc yon 10-18-2022 Risk Screen - Adult Emergency Preferred Language: Preferred Language: Preferred Language for Discussing Health Care (patient/designee)German Patient Preferred Pharmacy: Patient Preferred Pharmacy Statement: [...] Learning Preferencesverbal instruction Cultural Considerationsnone Developmental Considerationsnone Roman Catholic Considerationsnone Learning Assessment (Other Learner): Learning Assessment (Other Learner): Other learner availableno Pressure Injury/TB/Substance: Pressure Injury: Pressure Injury Present on Admissionno Do you have a coughno Smoking Statusnever smoker Alcohol Usedenies Drug Usedenies Admission Risk Screen: Significant IndicatorsComplete CAGE: CAGE: Is this an injured patient at a Trauma Center ([facility]/[place]/ [place]): no Electronic Signatures: Renata Alan (MANUEL) (Signed 17-Oct-2022 23:35) Authored: Preferred Language, Patient Preferred Pharmacy, Advanced Directives, Family Violence Adult, Learning Assessment (Patient), Learning Assessment (Other Learner), Pressure Injury/TB/Substance, Pressure Injury, CAGE Last Updated: 17-Oct-2022 23:35 by Renata Alan (MANUEL) [facility] Triage - EDon 10-18-2022 Triage - ED [...] Accompanied By: parent Language: Spoken Language Preferred: German CHIEF COMPLAINT CLAUDIA FARFAN is a Female [...] obeys commands Best Verbal Response: (V5) oriented [place] Score: 15 Allergies: no Last menstrual period: [...] Last Updated: 17-Oct-2022 23:34 by Renata Alan (MANUEL) Normal [facility] UA MICROSCOPICon 10-18-2022 RBC (U) [#/Vol] /uL Abnormal 0-5 [facility] Comment on above: Performed By: #### U AMIC #### [address] [address] SQUAMOUS EPITH. CELLS 4 /HPF Normal [facility] Comment on above: Performed By: #### U AMIC #### [id number] WBC 2 /HPF Normal 0-5 [facility] Comment on above: Performed By: #### U AMIC #### [place] [address] URINALYSIS WITH CULTURE IF I NDICATEDon 10-18-2022 Appearance (U) HAZY Normal CLEAR [facility] Comment on above: Performed By: #### U ARFX #### [place] [address] Bilirubin Ql (U) Negative Normal NEGATIVE [facility] Comment on above: Performed By: #### U ARFX #### [place] [address] Color (U) Yellow Normal STRAW,YELLOW [facility] Comment on above: Performed By: #### U ARFX #### [place] [address] Glucose Ql (U) Negative Normal NEGATIVE [facility] Comment on above: Performed By: #### U ARFX #### [place] [address] Hemoglobin Ql (U) LARGE(3+) Abnormal NEGATIVE [facility] Comment on above: Performed By: #### U ARFX #### [place] [address] Ketones Ql (U) Negative Normal NEGATIVE [facility] Comment on above: Performed By: #### U ARFX #### [place] [address] Leukocyte esterase Test strip Ql (U) TRACE Abnormal NEGATIVE [facility] Comment on above: Performed By: #### U ARFX #### [place] [address] Nitrite Ql (U) Negative Normal NEGATIVE [facility] Comment on above: Performed By: #### U ARFX #### [address] [address] pH (U) 6.0 [pH] Normal 5.0 - 8.0 [facility] Comment on above: Performed By: #### U ARFX #### [address] [address] Protein Ql (U) 30(1+) Abnormal NEGATIVE [facility] Comment on above: Performed By: #### U ARFX #### [address] [address] Specific gravity (U) [Rel density] 1.047 High 1.005 - 1.035 [facility] Comment on above: Performed By: #### U ARFX #### [address] [address] Urobilinogen (U) [Mass/Vol] mg/dL Normal 0.0 - 1.9 [facility] Comment on above: Performed By: #### U ARFX #### [id number] URINE CULTURE,BACTERIALon URINE CULTURE,BACTERIAL PATIENT: CLAUDIA FARFAN [facility] [id number] : 89 AGE: SEX: F ORDERED BY: [...] DEPENDENT NS=NONSUSCEPTIBLE X=REPORTED IN ERROR ___ Normal [facility] Comment on above: Performed By: #### U RIN #### [facility] [address] [place] [address] US GALLBLADDERon 10-18-2022 US GALLBLADDER Patient Name: CLAUDIA FARFAN STUDY: US GALLBLADDER; 10/18/2022 2:41 am INDICATION: Right upper quadrant pain . COMPARISON: CT scan of the abdomen pelvis 10/18/2022 ACCESSION NUMBER(S): [id number] ORDERING CLINICIAN: ANA SHABAZZ TECHNIQUE: Grayscale and [...] Dixon sign is reported negative by the roof technician. Electronically signed by: ISAAC BELTRE MD [facility] Absolute lymphocyte countOrd ered By: Cristy Abreu on 08-16-2022 Lymphocytes Auto (Unsp spec) [#/Vol] 2.54 10*3/uL 0.83-4.51 [facility] Basophil percentageOrdered B y: Cristy Abreu on 08-16-2022 Basophils/100 WBC (Bld) 0.3 % 0-1 [facility] Eosinophils/100 WBC (Bld) 0.5 % 0-5 [facility] Neutrophils (Bld) [#/Vol] 8.2 10*3/uL 2.0-7.7 [facility] Neutrophils/100 WBC (Bld) 70.3 % 47-70 [facility] WBC (Bld) [#/Vol] 11.7 10*3/uL 4.4-11.0 [facility] Blood erythrocytes count (nu mber/volume)Ordered By: Cristy Abreu on 08-16-2022 RBC (Bld) [#/Vol] 4.50 10*6/uL 4.2-5.4 [facility] Blood hemoglobin measurement (mass/volume)Ordered By: Cristy Abreu on 08-16-2022 Hemoglobin (Bld) [Mass/Vol] 13.2 g/dL 12.0-15.0 [facility] Blood lymphocytes/100 leukoc ytesOrdered By: Cristy Abreu on 08-16-2022 Lymphocytes/100 WBC (Bld) 21.7 % 19-41 [facility] Blood monocytes/100 leukocyt esOrdered By: Cristy Abreu on 08-16-2022 Monocytes/100 WBC (Bld) 6.8 % 0-10 [facility] Blood platelet mean volumeOr dered By: Cristy Abreu on 08-16-2022 Platelet mean volume (Bld) [Entitic vol] 12.4 fL 6.2-12.0 [facility] Determination of erythrocyte mean corpuscular volume (MCV)Ordered By: Cristy Abreu on 08-16-2022 MCV (RBC) [Entitic vol] 87.3 fL 81-99 [facility] Hematocrit Auto (Bld) [Volum e fraction]Ordered By: Cristy Abreu on 08-16-2022 Hematocrit (Bld) [Volume fraction] 39.3 % 37-47 [facility] Laboratory - Hematology and Cell countsOrdered By: Cristy Abreu on 08-16-2022 Erythrocyte distribution width (RBC) [Entitic vol] 43.2 fL 35.1-43.9 [facility] Erythrocyte distribution width (RBC) [Ratio] 13.7 % 11.6-14.6 [facility] Immature granulocytes/100 WBC (Bld) 0.400 % 0.0-0.9 [facility] Comment on above: IG% - Immature Granu locytes (promyelocytes, myelocytes and metamyelocytes) > 1% indicates that a LEFT SHIFT is Present. MCH (RBC) [Entitic mass] 29.3 pg 27.0-32.0 [facility] Nucleated RBC/100 WBC (Bld) [Ratio] 0 % 0-5 [facility] MCHC Auto (RBC) [Mass/Vol]Or dered By: Cristy Abreu on 08-16-2022 MCHC (RBC) [Mass/Vol] 33.6 g/dL 32-36 [facility] Platelets bldOrdered By: Med Abreu on 08-16-2022 Platelets (Bld) [#/Vol] 226 10*3/uL 150-450 [facility] Serum Treponema species anti body detectionOrdered By: Cristy Abreu on 08-16-2022 Treponema sp Ab Ql (S) Non-Reactive [facility] Laboratory - Chemistry and C hemistry - challengeon 08-10-2022 Glucose Ql (U) Negative [facility] Laboratory - Urinalysison Protein Ql (U) Negative [facility] Laboratory - Chemistry and C hemistry - challengeon 08-03-2022 Glucose Ql (U) Negative [facility] Laboratory - Urinalysison Protein Ql (U) Negative [facility] Culture, urineOrdered By: Yumi Mead on 07-27-2022 Bacteria identified Cx Nom (U) Positive [facility] No Panel InformationOrdered By: Rina Mead on 07-27-2022 Group B Streptococcus Culture Group B Beta Streptococcus is not isolated. [facility] Absolute lymphocyte countOrd ered By: Rina Mead on 07-25-2022 Lymphocytes Auto (Unsp spec) [#/Vol] 2.72 10*3/uL 0.83-4.51 [facility] Basophil percentageOrdered B y: Rina Mead on 07-25-2022 Basophils/100 WBC (Bld) 0.1 % 0-1 [facility] Bilirubin [Mass/Vol] 0.40 mg/dL 0.20-1.00 [facility] Comment on above: For patients on eltr ombopag therapy, use of Dimension [place] TBIL is not recommended. Chloride [Moles/Vol] 111 mmol/L 98-107 [facility] Eosinophils/100 WBC (Bld) 0.1 % 0-5 [facility] Glucose [Mass/Vol] 87 mg/dL 74-[address] [facility] Neutrophils (Bld) [#/Vol] 10.3 10*3/uL 2.0-7.7 [facility] Neutrophils/100 WBC (Bld) 73.1 % 47-70 [facility] Potassium [Moles/Vol] 3.6 mmol/L 3.5-5.1 [facility] Protein [Mass/Vol] 6.0 g/dL 6.4-8.[address] [facility] Sodium [Moles/Vol] 141 mmol/L 136-[address] [facility] WBC (Bld) [#/Vol] 14.1 10*3/uL 4.4-11.0 [facility] Blood erythrocytes count (nu mber/volume)Ordered By: Rina Mead on 07-25-2022 RBC (Bld) [#/Vol] 4.18 10*6/uL 4.2-5.4 [facility] Blood hemoglobin measurement (mass/volume)Ordered By: Rina Mead on 07-25-2022 Hemoglobin (Bld) [Mass/Vol] 12.1 g/dL 12.0-15.0 [facility] Blood lymphocytes/100 leukoc ytesOrdered By: Rina Mead on 07-25-2022 Lymphocytes/100 WBC (Bld) 19.2 % 19-41 [facility] Blood monocytes/100 leukocyt esOrdered By: Rina Mead on 07-25-2022 Monocytes/100 WBC (Bld) 7.0 % 0-10 [facility] Blood platelet mean volumeOr dered By: Rina Mead on 07-25-2022 Platelet mean volume (Bld) [Entitic vol] 11.6 fL 6.2-12.0 [facility] Determination of erythrocyte mean corpuscular volume (MCV)Ordered By: Rina Mead on 07-25-2022 MCV (RBC) [Entitic vol] 87.1 fL 81-99 [facility] Hematocrit Auto (Bld) [Volum e fraction]Ordered By: Rina Mead on 07-25-2022 Hematocrit (Bld) [Volume fraction] 36.4 % 37-47 [facility] Laboratory - Chemistry and C hemistry - challengeOrdered By: Rinajeannette Mead on 07-25-2022 ALP [Catalytic activity/Vol] 137 U/L 45-117 [facility] ALT [Catalytic activity/Vol] 29 U/L 13-56 [facility] CO2 [Moles/Vol] 20.0 mmol/L 21.0-32.0 [facility] Globulin (S) [Mass/Vol] 3.7 g/dL 2.2-4.2 [facility] Urea nitrogen/Creatinine [Mass ratio] 4.6 mg/mg 10-20 [facility] Laboratory - Hematology and Cell countsOrdered By: Rina Mead on 07-25-2022 Erythrocyte distribution width (RBC) [Entitic vol] 41.7 fL 35.1-43.9 [facility] Erythrocyte distribution width (RBC) [Ratio] 13.2 % 11.6-14.6 [facility] Immature granulocytes/100 WBC (Bld) 0.500 % 0.0-0.9 [facility] Comment on above: IG% - Immature Granu locytes (promyelocytes, myelocytes and metamyelocytes) > 1% indicates that a LEFT SHIFT is Present. MCH (RBC) [Entitic mass] 28.9 pg 27.0-32.0 [facility] Nucleated RBC/100 WBC (Bld) [Ratio] 0 % 0-5 [facility] MCHC Auto (RBC) [Mass/Vol]Or dered By: Rina Mead on 07-25-2022 MCHC (RBC) [Mass/Vol] 33.2 g/dL 32-36 [facility] No Panel InformationOrdered By: Rina Mead on 07-25-2022 Estimated Creatinine Clearance Calc 106.85 ml/min [facility] Estimated GFR (MDRD) Amer 140 mL/min >60 [facility] Comment on above: GFR Calc Estimated GFR (MDRD) Non-Af Amer 115 mL/min >60 [facility] Comment on above: Non- GFR Calc Platelets bldOrdered By: Shagufta Mead on 07-25-2022 Platelets (Bld) [#/Vol] 235 10*3/uL 150-450 [facility] Serum or plasma albumin jay urement (mass/volume)Ordered By: Rina Mead on 07-25-2022 Albumin [Mass/Vol] 2.3 g/dL 3.2-5.[address] [facility] Serum or plasma albumin/glob ulin mass ratioOrdered By: Rina Mead on 07-25-2022 Albumin/Globulin [Mass ratio] 0.6 {ratio} 0.9-2.4 [facility] Serum or plasma calcium jay urement (mass/volume)Ordered By: Rina Mead on 07-25-2022 Calcium [Mass/Vol] 8.8 mg/dL 8.5-10.[address] [facility] Serum or plasma creatinine m easurement (mass/volume)Ordered By: Rina Mead on 07-25-2022 Creatinine [Mass/Vol] 0.66 mg/dL 0.55-1.02 [facility] Comment on above: The validity of the calculated GFR & GFRAA in patients over 70 years has not been determined. Clinical correlation is essential. Serum or plasma urea nitroge n measurement (mass/volume)Ordered By: Rina Mead on 07-25-2022 Urea nitrogen [Mass/Vol] 3 mg/dL 7-18 [facility] Thin prep Papanicolaou smear with manual screeningOrdered By: Rina Mead on 07-25-2022 Thin prep Papanicolaou smear with manual screening 51 U/L 15-37 [facility] Thin prep Papanicolaou smear with manual screening 10 5-15 [facility] Basophil percentageOrdered B y: Rina Mead on 07-24-2022 Basophil percentage 5-10 [facility] Test strip Ql (U)O rdered By: Rina Mead on 07-24-2022 Bilirubin Ql (U) Negative Negative [facility] Ketones Test strip Ql (U)Ord ered By: Rina Mead on 07-24-2022 Ketones Ql (U) Negative Negative [facility] Mucus LM Ql (Urine sed)Order ed By: Rina Mead on 07-24-2022 Mucus Ql (Urine sed) RARE /hpf [facility] Nitrite Test strip Ql (U)Ord ered By: Rina Mead on 07-24-2022 Nitrite Ql (U) Negative Negative [facility] No Panel InformationOrdered By: Rina Mead on 07-24-2022 Specimen Comment (Misc) Not Reportable [facility] Protein Test strip Ql (U)Ord ered By: Rina Mead on 07-24-2022 Protein Ql (U) 15 mg/dl Negative [facility] Serum Treponema species anti body detectionOrdered By: Rina Mead on 07-24-2022 Treponema sp Ab Ql (S) Non-Reactive [facility] Squamous epithelial cells de tection in urine sediment by light microscopyOrdered By: Rina Mead on 07-24-2022 Epithelial cells.squamous LM Ql (Urine sed) 5-10 SEEN /hpf 5-10 [facility] Thin prep Papanicolaou smear with manual screeningOrdered By: Rina Mead on 07-24-2022 Thin prep Papanicolaou smear with manual screening Negative Negative [facility] Urine blood detectionOrdered By: Rina Mead on 07-24-2022 RBC Ql (U) Negative Negative [facility] RBC Ql (U) 0-5 SEEN /hpf 0-5 [facility] Urine clarityOrdered By: Shagufta Mead on 07-24-2022 Clarity (U) Sl. Cloudy Clear [facility] Urine color determinationOrd ered By: Rina Mead on 07-24-2022 Color (U) Yellow Yellow [facility] Urine glucose detectionOrder ed By: Rina Mead on 07-24-2022 Glucose Ql (U) Normal mg/dl Normal [facility] Urine leukocyte esterase det ection by dipstickOrdered By: Rina Mead on 07-24-2022 Leukocyte esterase Test strip Ql (U) 100 /ul Negative [facility] Urine pHOrdered By: Rina Mead on 07-24-2022 pH (U) 8.0 [pH] 5.0 - 8.0 [facility] Urine sediment bacteria coun t by microscopy (number/high power field)Ordered By: Rina Mead on 07-24-2022 Bacteria LM.HPF (Urine sed) [#/Area] 2 /[HPF] None Seen [facility] Urine specific gravity measu rementOrdered By: Rina Mead on 07-24-2022 Specific gravity (U) [Rel density] 1.015 1.002-1.030 [facility] Urobilinogen Auto test strip Ql (U)Ordered By: Rina Mead on 07-24-2022 Urobilinogen Ql (U) Normal mg/dl Normal [facility] Laboratory - Chemistry and C hemistry - challengeon 07-20-2022 Glucose Ql (U) Negative [facility] Laboratory - Urinalysison Protein Ql (U) Negative [facility] Laboratory - Chemistry and C hemistry - challengeon 07-13-2022 Glucose Ql (U) Negative [facility] Laboratory - Urinalysison Protein Ql (U) Negative [facility] Laboratory - Chemistry and C hemistry - challengeon 07-06-2022 Glucose Ql (U) Negative [facility] Laboratory - Urinalysison Protein Ql (U) Negative [facility] Absolute lymphocyte countOrd ered By: Gui Sloan on 06-29-2022 Lymphocytes Auto (Unsp spec) [#/Vol] 2.11 10*3/uL 0.83-4.51 [facility] Basophil percentageOrdered B y: Gui Sloan on 06-29-2022 Basophils/100 WBC (Bld) 0.3 % 0-1 [facility] Bilirubin [Mass/Vol] 0.30 mg/dL 0.20-1.00 [facility] Comment on above: For patients on eltr ombopag therapy, use of Dimension [place] TBIL is not recommended. Chloride [Moles/Vol] 110 mmol/L 98-107 [facility] Eosinophils/100 WBC (Bld) 0.5 % 0-5 [facility] Glucose [Mass/Vol] 99 mg/dL 74-[address] [facility] Neutrophils (Bld) [#/Vol] 8.5 10*3/uL 2.0-7.7 [facility] Neutrophils/100 WBC (Bld) 73.7 % 47-70 [facility] Potassium [Moles/Vol] 3.4 mmol/L 3.5-5.1 [facility] Protein [Mass/Vol] 6.4 g/dL 6.4-8.[address] [facility] Sodium [Moles/Vol] 141 mmol/L 136-[address] [facility] WBC (Bld) [#/Vol] 11.5 10*3/uL 4.4-11.0 [facility] Blood erythrocytes count (nu mber/volume)Ordered By: Gui Sloan on 06-29-2022 RBC (Bld) [#/Vol] 4.06 10*6/uL 4.2-5.4 [facility] Blood hemoglobin measurement (mass/volume)Ordered By: Gui Sloan on 06-29-2022 Hemoglobin (Bld) [Mass/Vol] 12.0 g/dL 12.0-15.0 [facility] Blood lymphocytes/100 leukoc ytesOrdered By: Gui Sloan on 06-29-2022 Lymphocytes/100 WBC (Bld) 18.3 % 19-41 [facility] Blood monocytes/100 leukocyt esOrdered By: Gui Sloan on 06-29-2022 Monocytes/100 WBC (Bld) 6.3 % 0-10 [facility] Blood platelet mean volumeOr dered By: Gui Sloan on 06-29-2022 Platelet mean volume (Bld) [Entitic vol] 11.4 fL 6.2-12.0 [facility] Determination of erythrocyte mean corpuscular volume (MCV)Ordered By: Gui Sloan on 06-29-2022 MCV (RBC) [Entitic vol] 87.7 fL 81-99 [facility] Hematocrit Auto (Bld) [Volum e fraction]Ordered By: Gui Sloan on 06-29-2022 Hematocrit (Bld) [Volume fraction] 35.6 % 37-47 [facility] Laboratory - Chemistry and C hemistry - challengeOrdered By: Gui Sloan on 06-29-2022 ALP [Catalytic activity/Vol] 106 U/L 45-117 [facility] ALT [Catalytic activity/Vol] 15 U/L 13-56 [facility] CO2 [Moles/Vol] 23.0 mmol/L 21.0-32.0 [facility] Globulin (S) [Mass/Vol] 3.9 g/dL 2.2-4.2 [facility] Urea nitrogen/Creatinine [Mass ratio] 6.6 mg/mg 10-20 [facility] Laboratory - Chemistry and C hemistry - challengeon 06-29-2022 Glucose Ql (U) Negative [facility] Laboratory - Hematology and Cell countsOrdered By: Gui Sloan on 06-29-2022 Erythrocyte distribution width (RBC) [Entitic vol] 42.1 fL 35.1-43.9 [facility] Erythrocyte distribution width (RBC) [Ratio] 13.2 % 11.6-14.6 [facility] Immature granulocytes/100 WBC (Bld) 0.900 % 0.0-0.9 [facility] Comment on above: IG% - Immature Granu locytes (promyelocytes, myelocytes and metamyelocytes) > 1% indicates that a LEFT SHIFT is Present. MCH (RBC) [Entitic mass] 29.6 pg 27.0-32.0 [facility] Nucleated RBC/100 WBC (Bld) [Ratio] 0 % 0-5 [facility] Laboratory - Urinalysison Protein Ql (U) Negative [facility] MCHC Auto (RBC) [Mass/Vol]Or dered By: Gui Sloan on 06-29-2022 MCHC (RBC) [Mass/Vol] 33.7 g/dL 32-36 [facility] No Panel InformationOrdered By: Gui Sloan on 06-29-2022 Estimated GFR (MDRD) Amer 154 mL/min >60 [facility] Comment on above: GFR Calc Estimated GFR (MDRD) Non-Af Amer 127 mL/min >60 [facility] Comment on above: Non- GFR Calc Miscellaneous Test See comment [facility] Comment on above: TEST RESULT LIMITSBi le Acids, Fractionated LCMS Ursodeoxycholic Acids 0.10 umol/L Reference Range: All Ages: <1.9 Cholic Acids 0.60 umol/L Reference Range: All Ages: <2.2 Chenodeoxycholic Acids 0.50 umol/L Reference Range: All Ages: <5.8 Deoxycholic Acids 0.80 umol/L Reference Range: All Ages: <3.3 Total Bile Acids 2.0 umol/L This test was developed and its performance characteristics determined by [facility]. It has not been cleared or approved by the Food and Drug Administration. Reference Range: All Ages: <9.2 TESTING PERFORMED AT [facility]. ORIGINAL REPORT ON FILE IN LAB CONTAINS ADDITIONAL TEST SITE INFORMATION. Platelets bldOrdered By: Rafa Sloan on 06-29-2022 Platelets (Bld) [#/Vol] 251 10*3/uL 150-450 [facility] Serum or plasma albumin jay urement (mass/volume)Ordered By: Gui Sloan on 06-29-2022 Albumin [Mass/Vol] 2.5 g/dL 3.2-5.[address] [facility] Serum or plasma albumin/glob ulin mass ratioOrdered By: Gui Sloan on 06-29-2022 Albumin/Globulin [Mass ratio] 0.6 {ratio} 0.9-2.4 [facility] Serum or plasma calcium jay urement (mass/volume)Ordered By: Gui Sloan on 06-29-2022 Calcium [Mass/Vol] 8.6 mg/dL 8.5-10.[address] [facility] Serum or plasma creatinine m easurement (mass/volume)Ordered By: Gui Sloan on 06-29-2022 Creatinine [Mass/Vol] 0.60 mg/dL 0.55-1.02 [facility] Comment on above: The validity of the calculated GFR & GFRAA in patients over 70 years has not been determined. Clinical correlation is essential. Serum or plasma urea nitroge n measurement (mass/volume)Ordered By: Gui Sloan on 06-29-2022 Urea nitrogen [Mass/Vol] 4 mg/dL 7-18 [facility] Thin prep Papanicolaou smear with manual screeningOrdered By: Gui Sloan on 06-29-2022 Thin prep Papanicolaou smear with manual screening 14 U/L 15-37 [facility] Thin prep Papanicolaou smear with manual screening 8 5-15 [facility] Laboratory - Chemistry and C hemistry - challengeon 06-22-2022 Glucose Ql (U) Negative [facility] Laboratory - Urinalysison Protein Ql (U) Negative [facility] Laboratory - Chemistry and C hemistry - challengeon 06-08-2022 Glucose Ql (U) Negative [facility] Laboratory - Urinalysison Protein Ql (U) Negative [facility] Absolute lymphocyte countOrd ered By: Gui Sloan on 05-25-2022 Lymphocytes Auto (Unsp spec) [#/Vol] 2.12 10*3/uL 0.83-4.51 [facility] Basophil percentageOrdered B y: Gui Sloan on 05-25-2022 Basophils/100 WBC (Bld) 0.3 % 0-1 [facility] Eosinophils/100 WBC (Bld) 0.3 % 0-5 [facility] Neutrophils (Bld) [#/Vol] 9.0 10*3/uL 2.0-7.7 [facility] Neutrophils/100 WBC (Bld) 75.3 % 47-70 [facility] WBC (Bld) [#/Vol] 12.0 10*3/uL 4.4-11.0 [facility] Blood erythrocytes count (nu mber/volume)Ordered By: Gui Sloan on 05-25-2022 RBC (Bld) [#/Vol] 4.03 10*6/uL 4.2-5.4 [facility] Blood hemoglobin measurement (mass/volume)Ordered By: Gui Sloan on 05-25-2022 Hemoglobin (Bld) [Mass/Vol] 11.7 g/dL 12.0-15.0 [facility] Blood lymphocytes/100 leukoc ytesOrdered By: Gui Sloan on 05-25-2022 Lymphocytes/100 WBC (Bld) 17.7 % 19-41 [facility] Blood monocytes/100 leukocyt esOrdered By: Gui Sloan on 05-25-2022 Monocytes/100 WBC (Bld) 5.4 % 0-10 [facility] Blood platelet mean volumeOr dered By: Gui Sloan on 05-25-2022 Platelet mean volume (Bld) [Entitic vol] 11.2 fL 6.2-12.0 [facility] Determination of erythrocyte mean corpuscular volume (MCV)Ordered By: Gui Sloan on 05-25-2022 MCV (RBC) [Entitic vol] 89.3 fL 81-99 [facility] Gestational diabetes screen 1-hour screen with 50g oral glucose loadOrdered By: Gui Sloan on 05-25-2022 Glucose 1 Hr post 50 g glucose PO [Mass/Vol] 100 mg/dL 70-140 [facility] HIV 1 and HIV-2 antibody ass ay with HIV-1 p24 antigen detectionOrdered By: Gui Sloan on 05-25-2022 HIV 1+2 Ab+HIV1 p24 Ag IA Ql Non-Reactive Nonreactive [facility] Hematocrit Auto (Bld) [Volum e fraction]Ordered By: Gui Sloan on 05-25-2022 Hematocrit (Bld) [Volume fraction] 36.0 % 37-47 [facility] Laboratory - Hematology and Cell countsOrdered By: Gui Sloan on 05-25-2022 Erythrocyte distribution width (RBC) [Entitic vol] 42.0 fL 35.1-43.9 [facility] Erythrocyte distribution width (RBC) [Ratio] 12.9 % 11.6-14.6 [facility] Immature granulocytes/100 WBC (Bld) 1.000 % 0.0-0.9 [facility] Comment on above: IG% - Immature Granu locytes (promyelocytes, myelocytes and metamyelocytes) > 1% indicates that a LEFT SHIFT is Present. MCH (RBC) [Entitic mass] 29.0 pg 27.0-32.0 [facility] Nucleated RBC/100 WBC (Bld) [Ratio] 0 % 0-5 [facility] MCHC Auto (RBC) [Mass/Vol]Or dered By: Gui Sloan on 05-25-2022 MCHC (RBC) [Mass/Vol] 32.5 g/dL 32-36 [facility] Platelets bldOrdered By: Rafa Sloan on 05-25-2022 Platelets (Bld) [#/Vol] 283 10*3/uL 150-450 [facility] Serum Treponema species anti body detectionOrdered By: Gui Sloan on 05-25-2022 Treponema sp Ab Ql (S) Non-Reactive [facility] Laboratory - Chemistry and C hemistry - challengeon 05-12-2022 Glucose Ql (U) Negative [facility] Laboratory - Urinalysison Protein Ql (U) Negative [facility] Laboratory - Chemistry and C hemistry - challengeon 04-13-2022 Glucose Ql (U) Negative [facility] Laboratory - Urinalysison Protein Ql (U) Negative [facility] GROUP A STREP,PCRon 03-31-20 GROUP A STREP,PCR Not detected Normal Not Detected [facility] Comment on above: Result Comment: This test was performed utilizing an FDA-cleared rapid nucleic acid amplification by PCR to qualitatively detect Group A Streptococci from throat swab specimens without the need for culture confirmation of negative results. 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 INSPECTOR: Is : no Is : no REVIEW [...] SIGNS: T PRBP SpO2O2(LPM) %FiO2 Method 31-Mar-2022 13:41:[id number]/76 100 MDM MDM/ED COURSE: Discussed Findings with: [...] Signatures for Addendum Section: Lisa Rodriguez (ANDRE II) (Signed Addendum 01-Apr-2022 11:48) left message to return call for results Electronic Signatures: Lisa Rodriguez (ANDRE II) (Signature Pending) Authored: Attestation Ismael Davenport (PET ADOPTION COUNSELOR-SECURITY ASSOCIATE) (Signed 31-Mar-2022 14:12) Authored: ED Notes, HPI, PMH, ROS, PE, Results/Vital Signs, MDM/ED Course, Clinical Impression, Attestation, Chart Review, Scores Last Updated: 01-Apr-2022 11:48 by Lisa Rodriguez (ANDRE II) Normal [facility] Laboratory - Chemistry and C hemistry - challengeon 03-16-2022 Glucose Ql (U) Negative [facility] Laboratory - Urinalysison Protein Ql (U) Negative [facility] Absolute lymphocyte counton 01-29-2022 Lymphocytes Auto (Unsp spec) [#/Vol] 2.43 10*3/uL 0.83-4.51 [facility] Work Phone: Basophil percentageon 2021 Basophils/100 WBC (Bld) 0.3 % 0-1 [facility] Work Phone: Eosinophils/100 WBC (Bld) 0.3 % 0-5 [facility] Work Phone: Neutrophils (Bld) [#/Vol] 7.7 10*3/uL 2.0-7.7 [facility] Work Phone: Neutrophils/100 WBC (Bld) 70.3 % 47-70 [facility] Work Phone: WBC (Bld) [#/Vol] 11.0 10*3/uL 4.4-11.0 [facility] Work Phone: Blood erythrocytes count (nu mber/volume)on 01-29-2022 RBC (Bld) [#/Vol] 4.56 10*6/uL 4.2-5.4 [facility] Work Phone: Blood hemoglobin measurement (mass/volume)on 01-29-2022 Hemoglobin (Bld) [Mass/Vol] 13.2 g/dL 12.0-15.0 [facility] Work Phone: Blood lymphocytes/100 leukoc yteson 01-29-2022 Lymphocytes/100 WBC (Bld) 22.2 % 19-41 [facility] Work Phone: Blood monocytes/100 leukocyt eson 01-29-2022 Monocytes/100 WBC (Bld) 6.4 % 0-10 [facility] Work Phone: Blood platelet mean volumeon 01-29-2022 Platelet mean volume (Bld) [Entitic vol] 11.2 fL 6.2-12.0 [facility] Work Phone: Determination of erythrocyte mean corpuscular volume (MCV)on 01-29-2022 MCV (RBC) [Entitic vol] 86.4 fL 81-99 [facility] Work Phone: Gestational diabetes screen 1-hour screen with 50g oral glucose loadon 01-29-2022 Glucose 1 Hr post 50 g glucose PO [Mass/Vol] 74 mg/dL 70-140 [facility] Work Phone: HIV 1 and HIV-2 antibody ass ay with HIV-1 p24 antigen detectionon 01-29-2022 HIV 1+2 Ab+HIV1 p24 Ag IA Ql Non-Reactive Nonreactive [facility] Work Phone: Hematocrit Auto (Bld) [Volum e fraction]on 01-29-2022 Hematocrit (Bld) [Volume fraction] 39.4 % 37-47 [facility] Work Phone: Laboratory - Hematology and Cell countson 01-29-2022 Erythrocyte distribution width (RBC) [Entitic vol] 38.4 fL 35.1-43.9 [facility] Work Phone: Erythrocyte distribution width (RBC) [Ratio] 12.1 % 11.6-14.6 [facility] Work Phone: Immature granulocytes/100 WBC (Bld) 0.500 % 0.0-0.9 [facility] Work Phone: Comment on above: IG% - Immature Granu locytes (promyelocytes, myelocytes and metamyelocytes) > 1% indicates that a LEFT SHIFT is Present. MCH (RBC) [Entitic mass] 28.9 pg 27.0-32.0 [facility] Work Phone: Nucleated RBC/100 WBC (Bld) [Ratio] 0 % 0-5 [facility] Work Phone: MCHC Auto (RBC) [Mass/Vol]on 01-29-2022 MCHC (RBC) [Mass/Vol] 33.5 g/dL 32-36 [facility] Work Phone: No Panel Informationon 01-29 Hepatitis B Surface Antigen Non-Reactive Nonreactive [facility] Work Phone: Hepatitis C Antibody Non-Reactive Nonreactive [facility] Work Phone: Comment on above: Non Reactive: < 0.8 Equivocal: >/= 0.8 to < 1.0 Reactive: >/= 1.0The CDC recommends that a reactive/equivocal HCV antibody result be followed up by the HCV Nucleic Acid Amplificationtest (639471) Miscellaneous Test Comment MAILED SPECIMEN [facility] Work Phone: Rubella IgG Antibody Reactive Nonreactive [facility] Work Phone: Comment on above: Antibody Results Int erpretation of Immune Status Non Reactive Presumed Non-Immune Equivocal Equivocal Reactive Presumed Immune Platelets bldon 01-29-2022 Platelets (Bld) [#/Vol] 293 10*3/uL 150-450 [facility] Work Phone: Serum Treponema species anti body detectionon 01-29-2022 Treponema sp Ab Ql (S) Non-Reactive [facility] Work Phone: Cervical or vagninal specime n microscopic examination by cytology stain (reported ason 01-20-2022 Cytology report Cyto stain Doc (Cvx/Vag) Comment . [facility] Work Phone: Comment on above: The Pap [...] rRNA ABBY+probe Ql (Unsp spec) Negative Negative [facility] Work Phone: Laboratory - Cytologyon Home Care Attendant Cyto stain Nom (Cvx/Vag) [ID] Comment . [facility] Work Phone: Comment on above: Deniz Davidsont echnologist (ASC) Laboratory - Drug toxicology on 01-20-2022 Amphetamines Ql (U) Negative <1000 ng/mL [facility] Work Phone: Benzodiazepines Ql (U) Negative < 200 ng/mL [facility] Work Phone: Cannabinoids Screen Ql (U) Negative < 50 ng/mL [facility] Work Phone: Cocaine Ql (U) Negative < 300 ng/mL [facility] Work Phone: Opiates Ql (U) Negative < 300 ng/mL [facility] Work Phone: Laboratory - Microbiology an d Antimicrobial susceptibilityon 01-20-2022 N. gonorrhoeae DNA ABBY+probe Ql (Unsp spec) Negative Negative [facility] Work Phone: Comment on above: Performed at: =G - [facility] [address] [id number] Director: Elisabeth Bui MD, Phone: [phone] Laboratory - Miscellaneous t estson 01-20-2022 Service comment (Unsp spec) [Interp] Comment . [facility] Work Phone: Comment on above: This liquid based Th inPrep(R) pap test was screened withthe use of an image guided system. Service comment (Unsp spec) [Interp] . . [facility] Work Phone: No Panel Informationon 01-20 Human Papillomavirus Screen Comment . [facility] Work Phone: Comment on above: The HPV DNA reflex c isabel were not met with this specimenresult therefore, no HPV testing was performed.Performed at: - [facility] [id number] Director: Elisabeth Bui MD, Phone: [phone] MDMA (Ecstasy) Screen Negative < 500 ng/mL [facility] Work Phone: Pathology report final diagnosis Narrative Comment . [facility] Work Phone: Comment on above: NEGATIVE FOR INTRAEP ITHELIAL LESION OR MALIGNANCY.CELLULAR CHANGES ASSOCIATED WITH INFLAMMATION ARE PRESENT.THIS SPECIMEN WAS RESCREENED PART OF OUR SAMPLE TESTER GRINDER PROGRAM. Urine Barbiturates Screen Negative < 200 ng/mL [facility] Work Phone: Urine Drug Screen Comment [facility] Work Phone: Comment on above: CONFIRMATORY TESTING [...] Urine Methadone Screen Negative < 300 ng/mL [facility] Work Phone: Urine phencyclidine (PCP) de tectionon 01-20-2022 Phencyclidine Ql (U) Negative < 25 ng/mL [facility] Work Phone: DHEA Sulfate, Serumon 2020 DHEA-S [Mass/Vol] 133 ug/dL 65 - [address] [facility] [place] Work Phone: Comment on above: MATURITY-BASED REFER [...] may contact their local laboratoryfor further information. VETERINARY LIVESTOCK INSPECTOR - Office Visiton 06-17 VETERINARY LIVESTOCK INSPECTOR - Office Visit Diagnoses/Problems Assessed PCOS (polycystic ovarian syndrome) (256.4) (E28.2) Insulin resistance (277.7) (E88.81) Obesity (278.00) (E66.9) Orders Family Medicine Referral Evaluation and Treatment Evaluate AND Treat Status: Hold For - Scheduling Requested for: [id number] Nutrition Consult Referral Evaluation and Treatment Evaluate AND Treat Status: Hold For - Scheduling Requested for: [id number] 17-Hydroxyprogesterone, Serum; Status:Active; Requested for:[id number]; Follow-up PRN Outpatient Follow-up Status: Active Requested for: [id number] DHEA Sulfate, Serum; Status:Active; Requested for:[id number]; Follow-up visit in 12 months Outpatient Follow-up Status: Hold For - Scheduling Requested for: [id number] Provider Impressions 1)PCOS-patient needs to 3 [place] [...] NO NEW CONCERNS. LMP-06/17/2020. History of Present [id number]-[id number] presents with her results review. Patient is [...] 06/14/2020 8:28:07 AM Pollen Recorded By: Kalani Valnecia; 06/14/2020 8:28:07 AM Current Meds Medication NameInstruction 1.5-30 MG-MCG Oral TabletTAKE 1 TABLET DAILY DIRECTED. metFORMIN HCl - 500 MG Oral TabletTAKE 1 TABLET TWICE DAILY. Vitals Vital Signs Recorded: [id number] 11:29AM Isynejwcuyu14.3 F, Temporal Ahoadirz496, LUE, Sitting Huktdpgyz86, LUE, Sitting Height5 ft 3 in Hkrfvg917 lb 12.24 oz BMI Gcketcfjck47.64 BSA Calculated2.03 [id number] Physical Exam General: None acute distress Eye: Intraocular movements are intact HEENT: Normocephalic Cardiovascular: Regular rate Respiratory: Respirations are nonlabored Gastrointestinal: Nondistended Musculoskeletal: Normal range of motion Neurologic: Alert and oriented x3 Psychiatric: Cooperative appropriate mood and affect. Results/Data Ultrasound Pelvis Transabdominal With [id number] 08:39AMAYunior borrego [Jun 14, 2020 9:00AM Yunior Mercado] Reason: Unspecified for Ultrasound Pelvis Transabdominal With Transvaginal Test NameResultFlagReference Ultrasound Pelvis Transabdominal With Transvaginal(Report) Interpreted by: SANGITA ZAMAN 06/20/20 10:32 Patient Name: CLAUDIA FARFAN STUDY: US PELVIS TRANSABDOMINAL WITH TRANSVAGINAL; 06/20/2020 8:39 am INDICATION: aub, ?PCOS. LMP 06/17/2020. On oral control. COMPARISON: 07/17/2017 ACCESSION NUMBER(S): [id number] ORDERING CLINICIAN: YUNIOR MERCADO TECHNIQUE: Multiple multiplanar [...] by: SANGITA ZAMAN 06/20/20 10:32 Complete Blood [id number] 07:47AMAdair, Yunior Test NameResultFlagReference White Blood Cell Count9.7 x10E9/L4.4 - 11.3 Red Blood Cell Count5.14 x10E12/LSee Below Reference Range: 4.00 - 5.20 Jtmfjqpkki15.9 g/dLSee Below Reference Range: 12.0 - 16.0 HCT44.7 %See Below Reference Range: 36.0 - 46.0 MCV87 fL80 - 100 MCHC33.2 g/dLSee Below Reference Range: 32.0 - 36.0 Platelet Cxamt637 x10E9/L150 - 450 RDW-CV13.1 %See Below Reference Range: 11.5 - 14.5 TSH - Thyroid Stimulating Hormone, Czcii56Uso3295 07:47AMAdair, Yunior Test NameResultFlagReference Thyroid Stimulating Hormone, Serum1.86 mIU/LSee Below Reference Range: 0.44 - 3.98 TSH testing is performed using different testing methodology at [facility] than at other [place] [facility]. Direct result comparisons should only be made within the same method. Testosterone, Vktuy79Hht1573 07:47AMAdair, Yunior Test NameResultFlagReference Testosterone, Level<60 ng/dL0 - 70 Nandrolone decanoate, 11 Beta-hydroxytestosterone, androstenedione, testosterone propionate and 22-utay-urxgpcdbusea strongly cross react with this test method. [...] Jul 05 2020 12:48PM EST (Author) Normal [facility] VETERINARY LIVESTOCK INSPECTOR - Office Visiton 05-18 VETERINARY LIVESTOCK INSPECTOR - Office Visit Diagnoses/Problems Assessed Alcohol use [...] Ultrasound Pelvis Transabdominal With Transvaginal; Status:Active; Requested for:20Jun2020; Reason: Unspecified for Ultrasound Pelvis Transabdominal With Transvaginal Radiologist to Determine Optimal Study : Y What are the patient's signs and symptoms? : aub, ?PCOS Tobacco Use Screening; Status:Complete; Done: 14Jun2020 Provider Impressions 1)AUB-patient on control she will skip cycles. Plan initiate work-up as it does not seem that prior VETERINARY LIVESTOCK INSPECTOR did. We will get a CBC TSH [...] in the future. LMP- History of Present Hcrwfhh11-wvcb-vqx G0 presents for second opinion about potentially [...] DAILY. Vitals Vital Signs Recorded: 14Jun2020 08:28AM Gpsgqbaxkja45.5 F, Temporal Wjwjwzwa677, LUE, Sitting Umvzewckn84, LUE, Sitting Height5 ft 3 in Qmkdpv629 lb 3.30 oz BMI Gmnnlnqmgy86.72 BSA Calculated2.03 [id number] Physical Exam General: None acute distress Eye: [...] Jun 14 2020 9:02AM EST (Author) [facility] Albumin mass conc 4.1 g/dL Normal 3.4-5.0 [facility] Comment on above: Performed By: #### 2 [id number] #### [facility] Chemistry Manual Subsection [facility] [place] [address] Albumin/Globulin mass ratio 1.4 {ratio} Normal 1.1-1.[address] [facility] Comment on above: Performed By: #### 2 [id number] #### [facility] Chemistry Manual Subsection [facility] [place] [address] Alk Phos 55 Int._Unit/L Normal 33-[address] [facility] Comment on above: Performed By: #### 2 [id number] #### [facility] Chemistry Manual Subsection [facility] [place] [address] ALT enzyme act/vol 20 Int._Unit/L Normal 7-45 [facility] Comment on above: Performed By: #### 2 [id number] #### [facility] Chemistry Manual Subsection [address] [place] [address]73 Anion gap molar conc 11 mmol/L Normal 10-20 [facility] Comment on above: Performed By: #### 2 [id number] #### [facility] Chemistry Manual Subsection [address] [place] [address] 84290 AST enzyme act/vol 22 Int._Unit/L Normal 9-39 [facility] Comment on above: Performed By: #### 2 [id number] #### [facility] Chemistry Manual Subsection [address] [place] [address] 44553 Bili Total 0.42 mg/dL Normal 0.00-1.[address] [facility] Comment on above: Performed By: #### 2 [id number] #### [facility] Chemistry Manual Subsection [address] [place] [address] 38512 Calcium mass conc 9.3 mg/dL Normal 8.6-10.3 [facility] Comment on above: Performed By: #### 2 [id number] #### [facility] Chemistry Manual Subsection [address] [place] [address] 95436 Chloride molar conc 105 mmol/L Normal 98-107 [facility] Comment on above: Performed By: #### 2 [id number] #### [facility] Chemistry Manual Subsection [address] [place] [address] 64624 CO2 molar conc 26.0 mmol/L Normal 21.0-32.[address] [facility] Comment on above: Performed By: #### 2 [id number] #### [facility] Chemistry Manual Subsection [address] [place] [address] 27403 Creatinine mass conc 0.8 mg/dL Normal 0.5-1.1 [facility] Comment on above: Performed By: #### 2 [id number] #### [facility] Chemistry Manual Subsection [address] [place] [address] 69605 Globulin mass conc (S) 3.0 g/dL Normal 2.0-4.0 [facility] Comment on above: Performed By: #### 2 [id number] #### [facility] Chemistry Manual Subsection [address] [place] [address] 70830 Glucose mass conc 84 mg/dL Normal 70-99 [facility] Comment on above: Performed By: #### 2 [id number] #### [facility] Chemistry Manual Subsection [facility] [place] [address] Potassium molar conc 3.8 mmol/L Normal 3.5-5.3 [facility] Comment on above: Performed By: #### 2 [id number] #### [facility] Chemistry Manual Subsection [address] [place] [address] 13859 Protein mass conc 7.0 g/dL Normal 6.4-8.2 [facility] Comment on above: Performed By: #### 2 [id number] #### ADAIR Chemistry Manual Subsection [address] [place] [address] 47785 Sodium molar conc 138 mmol/L Normal 136-145 [facility] Comment on above: Performed By: #### 2 [id number] #### [facility]IR Chemistry Manual Subsection [address] [place] [address] 66176 Urea nitrogen mass conc 9 mg/dL Normal 6-[address] [facility] Comment on above: Performed By: #### 2 [id number] #### [facility] Chemistry Manual Subsection [address] [place] [address] 72044 Urea nitrogen/Creatinine mass ratio 11.2 ratio Normal 5.4-30.[address] [facility] Comment on above: Performed By: #### 2 [id number] #### [facility] Chemistry Manual Subsection [address] [place] [address] 06914 eGFRon 09-08-2018 GFR/1.73 sq M predicted among non-blacks MDRD vol rate/area (S/P/Bld) mL/min/{1.73_m2} Normal [facility] Comment on above: Order Comment: Order added by Discern Expert. Performed By: #### 2 [id number] #### [facility] Chemistry Manual Subsection [address] [place] [address] 10637 FSHon 07-26-2018 FSH 4.9 mIU/mL Normal [facility] Comment on above: Result Comment: Adul t Female: Follicular phase 3.5 - 12.5 Ovulation phase 4.7 - 21.5 Luteal phase 1.7 - 7.7 Postmenopausal 25.8 - 134.8 Performed At: [facility] [id number] Don Quick PhD Ph:[phone] Performed By: #### 2 [id number] #### [facility] Send Outs Subsection [facility] [place] [place] [id number] Insulin Lvlon 07-26-2018 Insulin Lvl 42.5 mcIU/mL High 2.6-24.[address] [facility] Comment on above: Result Comment: [facility]f ormed At: [facility] TowersSarah [facility] [id number] [place], [place] [id number] Don Quick PhD Ph:[phone] Performed By: #### 2 [id number] #### ADAIR Chemistry Manual Subsection [facility]5 [place] [address] LHon 07-26-2018 LH 4.6 mIU/mL Normal [facility] Comment on above: Result Comment: Adul t Female: Follicular phase 2.4 - 12.6 Ovulation phase 14.0 - 95.6 Luteal phase 1.0 - 11.4 Postmenopausal 7.7 - 58.5 Performed At: [facility] [place] [id number] [place], [place] [id number] Don Quick PhD Ph:[phone] Performed By: #### 2 [id number] #### ADAIR Send Outs Subsection [facility]5 [place] [address] Prolactin Lvlon 07-26-2018 Protein mass conc 9.2 ng/mL Normal 4.8-23.3 [facility] Comment on above: Result Comment: Perf ormed At: [place] [id number] [place], [place] [id number] Don Quick PhD Ph:[phone] Performed By: #### 2 [id number] #### ADAIR Chemistry Manual Subsection [facility]5 [place] [address] Testost Totalon 07-26-2018 Testoster Tot 16 ng/dL Normal 8-[address] [facility] Comment on above: Result Comment: Perf ormed At: [address] [id number] Don Quick PhD Ph:[phone] Performed By: #### 2 [id number] #### ADAIR Chemistry Manual Subsection [address] [place] [address] BhCG Qualon 07-25-2018 HCG.beta subunit Qn Negative Normal Negative [facility] Comment on above: Performed By: #### 2 589180 #### ADAIR Chemistry Manual Subsection [address] [place] [address] CMPon 07-25-2018 Albumin mass conc 4.0 g/dL Normal 3.4-5.0 [facility] Comment on above: Performed By: #### 2 147423 #### ADAIR D[employer] [address] [place] [address] 55551 Albumin/Globulin mass ratio 1.3 {ratio} Normal 1.1-1.[address] [facility] Comment on above: Performed By: #### 2 940061 #### [facility] D[employer]ink [address] [place] [address] 81004 Alk Phos 45 Int._Unit/L Normal 33-[address] [facility] Comment on above: Performed By: #### 2 [id number] #### ADAIR [employer] [address] [place] [address] 87041 ALT enzyme act/vol 10 Int._Unit/L Normal 7-45 [facility] Comment on above: Performed By: #### 2 983517 #### ADAIR [employer] [address] [place] [address] 31556 Anion gap molar conc 10 mmol/L Normal 10-20 [facility] Comment on above: Performed By: #### 2 627555 #### ADAIR [employer] [address] [place] [address] 18021 AST enzyme act/vol 10 Int._Unit/L Normal 9-39 [facility] Comment on above: Performed By: #### 2 653371 #### ADAIR [employer] [address] [place] [address] 98122 Bili Total 0.23 mg/dL Normal 0.00-1.[address] [facility] Comment on above: Performed By: #### 2 698778 #### ADAIR [employer] [address] [place] [address] 35824 Calcium mass conc 8.9 mg/dL Normal 8.6-10.3 [facility] Comment on above: Performed By: #### 2 893049 #### ADAIR [employer] [address] [place] [address] 58818 Chloride molar conc 107 mmol/L Normal 98-107 [facility] Comment on above: Performed By: #### 2 969852 #### [facility] [employer] [address] [place] [address] 27456 CO2 molar conc 26.0 mmol/L Normal 21.0-32.[address] [facility] Comment on above: Performed By: #### 2 495335 #### [employer]IR [employer] [address] [place] [address] 05831 Creatinine mass conc 0.7 mg/dL Normal 0.5-1.1 [facility] Comment on above: Performed By: #### 2 320240 #### [facility] [employer] [address] [place] [address] 13544 Globulin mass conc (S) 3.0 g/dL Normal 2.0-4.0 [facility] Comment on above: Performed By: #### 2 698210 #### [facility] [employer] [address] [place], [place] [address] Glucose mass conc 90 mg/dL Normal 70-99 [facility] Comment on above: Performed By: #### 2 982015 #### [facility] [employer] [address] [place] [address] 45577 Potassium molar conc 3.9 mmol/L Normal 3.5-5.3 [facility] Comment on above: Performed By: #### 2 948352 #### [facility] [employer] [address] [place] [address] 40014 Protein mass conc 7.1 g/dL Normal 6.4-8.2 [facility] Comment on above: Performed By: #### 2 135841 #### [employer]IR [employer] [address] [place] [address] 03469 Sodium molar conc 139 mmol/L Normal 136-145 [facility] Comment on above: Performed By: #### 2 943366 #### [employer] [employer] [address] [place] [address] 47354 Urea nitrogen mass conc 10 mg/dL Normal 6-[address] [facility] Comment on above: Performed By: #### 2 199397 #### [employer] [employer] [address] [place], [place] [address] Urea nitrogen/Creatinine mass ratio 14.3 ratio Normal 5.4-30.[address] [facility] Comment on above: Performed By: #### 2 430301 #### [employer] [employer] [address] [place] [address] 00985 [id number] 07-25-2018 Hemoglobin A1c/Hemoglobin.total mass fraction (Bld) 5.0 % Normal 4.0-6.[address] [facility] Comment on above: Performed By: #### 3 [id number] #### ADAIR Chemistry Manual Subsection [address] [place] [address] Lipid Profileon 07-25-2018 Cholesterol in HDL mass conc 37 mg/dL Low >=[address] [facility] Comment on above: Performed By: #### 3 [id number] #### [employer] [employer] [address] [place] [address] 35688 Cholesterol in LDL mass conc 102 mg/dL Normal 0-[address] [facility] Comment on above: Result Comment: <100 OPTIMAL 100-129 NEAR / ABOVE OPTIMAL 130-159 BORDERLINE HIGH 160-189 HIGH >190 VERY HIGH CALC LDL NOT VALID WHEN TRIGLYCERIDE IS >400 MG/DL Performed By: #### 3 [id number] #### [employer]IR [employer] [address] [place] [address] 08573 Cholesterol in VLDL mass conc 39 mg/dL Normal 0-[address] [facility] Comment on above: Performed By: #### 3 [id number] #### [employer]IR [employer] [address] [place] [address] 94017 Cholesterol mass conc 178 mg/dL Normal 0-189 [facility] Comment on above: Result Comment: TOTA L CHOLEESTEROL: <200 NORMAL 200 - 239 BORDERLINE HIGH >240 HIGH Performed By: #### 3 [id number] #### ADAIR D[employer]ink [facility]5 [place] [address] Triglyceride mass conc 193 mg/dL High 0-149 [facility] Comment on above: Result Comment: AGE DESIRABLE BORDERLINE HIGH 91 D - 9 Y 0 - 74 75 - 99 > 100 10 - 19 Y 0 - 89 90 - 129 > 130 20 -24 Y 0 - 114 115 - 149 > 150 > 25 0 - 149 150 - 199 200 - 499 Performed By: #### 3 [id number] #### ADAIR [employer] [address] [place] [address] 22703 TSHon 07-25-2018 Thyrotropin Qn 2.48 mcIU/mL Normal 0.30-5.60 [facility] Comment on above: Performed By: #### 2 884213 #### ADAIR [employer] [address] [place] [address] U BhCG Qlton 07-25-2018 HCG.beta subunit Qn Negative Normal Neg [facility] Comment on above: Performed By: #### 2 293655 #### ADAIR Urinalysis Manual Subsection [address] [place] [address] eGFRon 07-25-2018 GFR/1.73 sq M predicted among non-blacks MDRD vol rate/area (S/P/Bld) mL/min/{1.73_m2} [facility] Comment on above: Order Comment: Order added by Discern Expert. Performed By: #### 1 [id number] #### ADAIR [employer] [address] [place] [address] C Urineon 02-12-2018 C Urine Final Report: [...] <=4 S SXT : <=2/[address] [facility] Comment on above: Performed By: #### 2 777875 #### ADAIR Microbiology Subsection [address] [place], [place] [address] FINGERS LT HAND 2ND DIGITon 11-16-2017 FINGERS LT HAND 2ND DIGIT DATE OF EXAM: Nov 16 2017 1:58PMCLINICAL HISTORY/ Name: YVES FARFANTHSTUDY:FINGERS LT HAND 2ND DIGIT; 11/16/2017 1:58 pmINDICATION:Trauma.NAMAN RISON:None. ING CLINICIAN:MARLA TIJERINA:Three views of the left 2nd digit including AP, oblique and lateral projections were obtained.FINDINGS:There is no radiographic evidence of acute fracture or dislocation identified. The joint spaces are well preserved without significant degenerative changes.CONCLUSION: IMPRESSION:1. No fracture or dislocation identified. Normal [facility] CBC With Differentialon 12-0 -2016 Basophils Auto #/vol (Bld) 0.05 10*3/uL Normal 0.01-0.07 [facility] Comment on above: Performed By: #### 2 116525 ####[facility] [address] [place] [address] Basophils/100 WBC Auto (Bld) 0.4 % Normal 0.1-1.2 [facility] Comment on above: Performed By: #### 2 349532 ####[facility] [address] [place] [address] Eosinophils Auto #/vol (Bld) 0.09 10*3/uL Normal 0.04-0.50 [facility] Comment on above: Performed By: #### 2 609903 ####[facility] [address] [place] [address] Eosinophils/100 WBC Auto (Bld) 0.7 % Normal 0.0-8.1 [facility] Comment on above: Performed By: #### 2 882896 ####[facility] [address] [place] [address] Erythrocyte distribution width Auto Ratio (RBC) 12.7 % Normal 12.0-15.4 [facility] Comment on above: Performed By: #### 2 912137 ####[facility] [address] [place] [address] Hematocrit Auto Volume Fraction (Bld) 43.8 % Normal 36.5-46.6 [facility] Comment on above: Performed By: #### 2 324594 ####[facility] [address] [place] [address] Hemoglobin mass conc (Bld) 14.8 g/dL Normal 11.8-15.3 [facility] Comment on above: Performed By: #### 2 698407 ####[facility] [address] [place] [address] Imm Grans Absolute 0.05 10*3/uL Normal 0.00-0.21 [facility] Comment on above: Performed By: #### 2 980330 ####[facility] S[address] [place] [address] Immature granulocytes #/vol (Bld) 0.4 % Normal [facility] Comment on above: Performed By: #### 2 221527 ####[facility] X[address] [place] [address] Lymphocytes Auto #/vol (Bld) 3.12 10*3/uL High 0.40-2.84 [facility] Comment on above: Performed By: #### 2 743892 ####[facility] [address] [place] [address] Lymphocytes/100 WBC Auto (Bld) 25.8 % Normal 15.7-50.5 [facility] Comment on above: Performed By: #### 2 678649 ####[facility] [address] [place] [address] MCH Auto Entitic mass (RBC) 28.8 pg Normal 27.5-33.0 [facility] Comment on above: Performed By: #### 2 648856 ####[facility] [address]qw[address] [place] [address] MCHC Auto mass conc (RBC) 33.8 g/dL Normal 30.1-35.0 [facility] Comment on above: Performed By: #### 2 419258 ####[facility] [address]kl[address] [place] [address] MCV Auto Entitic volume (RBC) 85.4 fL Normal 85.4-100.0 [facility] Comment on above: Performed By: #### 2 199120 ####[facility] [address] [place] [address] Monocytes Auto #/vol (Bld) 0.72 10*3/uL Normal 0.25-0.83 [facility] Comment on above: Performed By: #### 2 483367 ####[facility] [address] [place] [address] Monocytes/100 WBC Auto (Bld) 6.0 % Normal 4.8-12.7 [facility] Comment on above: Performed By: #### 2 378223 ####[facility] [address] [place] [address] Neutrophils Absolute 8.07 10*3/uL High 1.95-6.85 [facility] Comment on above: Performed By: #### 2 181620 ####[facility] [address] [place] [address] Neutrophils/100 WBC Auto (Bld) 66.7 % Normal 36.8-73.2 [facility] Comment on above: Performed By: #### 2 565427 ####[facility] [address] [place] [address] NRBC Absolute 0.00 10*3/uL Normal [facility] Comment on above: Performed By: #### 2 681337 ####[facility] [address] [place] [address] NRBC Automated 0.0 /100{WBCs} Normal [facility] Comment on above: Performed By: #### 2 149836 ####[facility] Dgn[address] [place] [address] Platelet mean volume Auto Entitic volume (Bld) 10.8 fL Normal 9.9-12.1 [facility] Comment on above: Performed By: #### 2 537559 ####[facility] [address] [place] [address] Platelets Auto #/vol (Bld) 302 10*3/uL Normal 155-404 [facility] Comment on above: Performed By: #### 2 030354 ####[facility] [address] [place] [address] RBC Auto #/vol (Bld) 5.13 10*6/uL High 3.85-5.10 [facility] Comment on above: Performed By: #### 2 650941 ####[facility] [address] [place] [address] RDW SD 39.6 fL Normal 39.3-48.6 [facility] Comment on above: Performed By: #### 2 309114 ####[facility] [address] [place] [address] WBC Auto #/vol (Bld) 12.1 10*3/uL High 4.4-9.9 [facility] Comment on above: Performed By: #### 2 911936 ####[facility] [address] [facility] [place] [address] CT NECK W/CONTRASTon 017 CT NECK W/CONTRAST DATE OF EXAM: Apr 17 2017 8:50PMCLINICAL HISTORY/ Name: BENIGNO WILLISTUDY:CT NECK W/CONTRAST; 04/17/2017 8:50 pmINDICATION:for mass.COMPARISON:Ultrasoun d dated 04/13/2017ACCESSION NUMBER(S):[id number] ING CLINICIAN:BEBE LEGER:Following intravenous injection axial CT was performed from [...] or abscess.Reactive lymphadenopathy; attention on follow-up. Normal [facility] CT THORAX WITH CONTRASTon CT THORAX WITH CONTRAST DATE OF EXAM: Apr 17 2017 8:50PMCLINICAL HISTORY/ Name: JONAS FARFANABATUDY:CT THORAX WITH CONTRAST; 04/17/2017 8:50 pmINDICATION:for mass.COMPARISON:None.ACCE SSION NUMBER(S):[id number] ING CLINICIAN:SHUKRI POE:Axial CT images of the [...] osseous abnormality.CONCLUSION: IMPRESSION:No mass or lymphadenopathy. Normal [facility] Comprehensive Metabolic Pane nii 04-17-2017 Albumin mass conc 4.3 g/dL Normal 3.4-5.0 [facility] Comment on above: Performed By: #### 1 [id number] ####[facility] [address] [place] [address] Albumin/Globulin mass ratio 1.2 {ratio} Normal 0.9-2.4 [facility] Comment on above: Performed By: #### 1 524628 ####[facility] [address] [place] [address] ALP enzyme act/vol 62 U/L Normal 45-117 [facility] Comment on above: Performed By: #### 1 962012 ####[facility] [address] [place] [address] ALT enzyme act/vol 11 U/L Normal 7-45 [facility] Comment on above: Performed By: #### 1 671746 ####[facility] [address] [place] [address] Anion gap 3 molar conc 14 mmol/L Normal 10-20 [facility] Comment on above: Performed By: #### 1 830828 ####[facility] [address] [place] [address] AST enzyme act/vol 18 U/L Normal 13-39 [facility] Comment on above: Performed By: #### 1 895198 ####[facility] [address] [place] [address] Bilirubin mass conc 0.3 mg/dL Normal 0.0-1.2 [facility] Comment on above: Performed By: #### 1 273422 ####[facility] [address] [facility] [place] [address] Calcium mass conc 9.4 mg/dL Normal 8.6-10.3 [facility] Comment on above: Performed By: #### 1 025087 ####[facility] [address] [place] [address] Chloride molar conc 103 mmol/L Normal 98-107 [facility] Comment on above: Performed By: #### 1 845955 ####[facility] [address] [facility] [place] [address] Creatinine mass conc 1.10 mg/dL High 0.50-1.05 [facility] Comment on above: Performed By: #### 1 087733 ####[facility] [address]so[address] [facility] [place] [address] GFR/1.73 sq M.predicted MDRD vol rate/area mL/min/{1.73_m2} Normal [facility] Comment on above: Result Comment: Inte rpretation for Chronic Kidney Disease:Stages 1&2 >60 Healthy or potential kidney damage.Mild decrease of GFR.Stage 3 30-59 Moderate decrease of GFR.Stage 4 15-29 Severe decrease of GFR.Stage 5 <15 Kidney failure or on dialysis. Performed By: #### 1 731013 ####[facility] [address] [facility] [place] [address] Glucose mass conc 91 mg/dL Normal 70-100 [facility] Comment on above: Performed By: #### 1 307439 ####[facility] [address] [place] [address] HCO3 molar conc (Bld) 24 mmol/L Normal 21-32 [facility] Comment on above: Performed By: #### 1 003861 ####[facility] [address] [place] [address] Potassium molar conc 3.6 mmol/L Normal 3.5-5.1 [facility] Comment on above: Performed By: #### 1 959597 ####[facility] [address] [place] [address] Protein mass conc 7.8 g/dL Normal 6.4-8.2 [facility] Comment on above: Performed By: #### 1 394409 ####[facility] [address] [place] [address] Sodium molar conc 137 mmol/L Normal 136-145 [facility] Comment on above: Performed By: #### 1 743858 ####[facility] [address] [place] [address] Urea nitrogen mass conc 14 mg/dL Normal 6-23 [facility] Comment on above: Performed By: #### 1 057655 ####[facility] [address] [place] [address] Urea nitrogen/Creatinine mass ratio 13 mg/mg Normal 5-25 [facility] Comment on above: Performed By: #### 1 916121 ####[facility] [address] [place] [address] Test (Serum)on Test, Serum Negative Normal [facility] Comment on above: Performed By: #### 3 472491 ####[facility] [address] [place] [address] Culture, urine Bacteria identified Cx Nom (U) Positive [facility] Work Phone: Vital Signs Date Time Vital Sign Value Performing Clinician Facility 11-20-2024 13:59-0400 Body height 160.02 cm No Primary Care Physician [facility] 11-20-2024 13:59-0400 Body mass index (BMI) [Ratio] 41.8 kg/m2 No Primary Care Physician [facility] 11-20-2024 13:59-0400 Body weight 107.1 kg No Primary Care Physician [facility] 11-20-2024 13:59-0400 Diastolic blood pressure 86 mm[Hg] No Primary Care Physician [facility] 11-20-2024 13:59-0400 Systolic blood pressure 134 mm[Hg] No Primary Care Physician [facility] 11-15-2024 14:10-0400 Body height 160.02 cm No Primary Care Physician [facility] 11-15-2024 14:10-0400 Body mass index (BMI) [Ratio] 41.8 kg/m2 No Primary Care Physician [facility] 11-15-2024 14:10-0400 Body weight 107.16 kg No Primary Care Physician [facility] 11-15-2024 14:10-0400 Diastolic blood pressure 86 mm[Hg] No Primary Care Physician [facility] 11-15-2024 14:10-0400 Systolic blood pressure 129 mm[Hg] No Primary Care Physician [facility] 11-09-2024 14:36-0400 Body height 160.02 cm No Primary Care Physician [facility] 11-09-2024 14:36-0400 Body mass index (BMI) [Ratio] 41.6 kg/m2 No Primary Care Physician [facility] 11-09-2024 14:36-0400 Body weight 106.65 kg No Primary Care Physician [facility] 11-09-2024 14:36-0400 Diastolic blood pressure 77 mm[Hg] No Primary Care Physician [facility] 11-09-2024 14:36-0400 Systolic blood pressure 124 mm[Hg] No Primary Care Physician [facility] 11-02-2024 02:22-0400 Body height 160.02 cm No Primary Care Physician [facility] 11-02-2024 02:22-0400 Body mass index (BMI) [Ratio] 41.2 kg/m2 No Primary Care Physician [facility] 11-02-2024 02:22-0400 Body weight 105.6 kg No Primary Care Physician [facility] 11-02-2024 01:54-0400 Body temperature 97.6 [degF] No Primary Care Physician [facility] 11-02-2024 01:54-0400 Respiratory rate 16 /min No Primary Care Physician [facility] 11-02-2024 01:53-0400 Diastolic blood pressure 72 mm[Hg] No Primary Care Physician [facility] 11-02-2024 01:53-0400 Heart rate 69 /min No Primary Care Physician [facility] 11-02-2024 01:53-0400 SaO2% (BldA) [Mass fraction] 98 % No Primary Care Physician [facility] 11-02-2024 01:53-0400 Systolic blood pressure 117 mm[Hg] No Primary Care Physician [facility] 11-01-2024 10:28-0400 Body height 160.02 cm No Primary Care Physician [facility] 11-01-2024 10:28-0400 Body mass index (BMI) [Ratio] 41.3 kg/m2 No Primary Care Physician [facility] 11-01-2024 10:28-0400 Body weight 105.85 kg No Primary Care Physician [facility] 11-01-2024 10:28-0400 Diastolic blood pressure 80 mm[Hg] No Primary Care Physician [facility] 11-01-2024 10:28-0400 Systolic blood pressure 135 mm[Hg] No Primary Care Physician [facility] 10-20-2024 09:02-0400 Body height 160.02 cm No Primary Care Physician [facility] 10-20-2024 08:58-0400 Body mass index (BMI) [Ratio] 40.9 kg/m2 No Primary Care Physician [facility] 10-20-2024 08:58-0400 Body weight 104.77 kg No Primary Care Physician [facility] 10-20-2024 08:58-0400 Diastolic blood pressure 78 mm[Hg] No Primary Care Physician [facility] 10-20-2024 08:58-0400 Systolic blood pressure 119 mm[Hg] No Primary Care Physician [facility] 10-02-2024 09:03-0400 Body height 160.02 cm No Primary Care Physician [facility] 10-02-2024 09:02-0400 Body mass index (BMI) [Ratio] 40.7 kg/m2 No Primary Care Physician [facility] 10-02-2024 09:02-0400 Body weight 104.32 kg No Primary Care Physician [facility] 10-02-2024 09:02-0400 Diastolic blood pressure 76 mm[Hg] No Primary Care Physician [facility] 10-02-2024 09:02-0400 Systolic blood pressure 124 mm[Hg] No Primary Care Physician [facility] 09-20-2024 09:57-0400 Body mass index (BMI) [Ratio] 39.8 kg/m2 No Primary Care Physician [facility] 09-20-2024 09:57-0400 Body weight 102.05 kg No Primary Care Physician [facility] 09-20-2024 09:57-0400 Diastolic blood pressure 66 mm[Hg] No Primary Care Physician [facility] 09-20-2024 09:57-0400 Systolic blood pressure 108 mm[Hg] No Primary Care Physician [facility] 08-21-2024 08:34-0400 Body height 160.02 cm No Primary Care Physician [facility] 08-21-2024 08:31-0400 Body mass index (BMI) [Ratio] 39.6 kg/m2 No Primary Care Physician [facility] 08-21-2024 08:31-0400 Body weight 101.37 kg No Primary Care Physician [facility] 08-21-2024 08:31-0400 Diastolic blood pressure 75 mm[Hg] No Primary Care Physician [facility] 08-21-2024 08:31-0400 Systolic blood pressure 122 mm[Hg] No Primary Care Physician [facility] 07-28-2024 08:36-0400 Body mass index (BMI) [Ratio] 39.3 kg/m2 No Primary Care Physician [facility] 07-28-2024 08:36-0400 Body weight 100.69 kg No Primary Care Physician [facility] 07-28-2024 08:36-0400 Diastolic blood pressure 72 mm[Hg] No Primary Care Physician [facility] 07-28-2024 08:36-0400 Systolic blood pressure 110 mm[Hg] No Primary Care Physician [facility] 06-26-2024 09:40-0500 Body mass index (BMI) [Ratio] 38.1 kg/m2 No Primary Care Physician [facility] 06-26-2024 09:40-0500 Body weight 97.57 kg No Primary Care Physician [facility] 06-26-2024 09:40-0500 Diastolic blood pressure 76 mm[Hg] No Primary Care Physician [facility] 06-26-2024 09:40-0500 Systolic blood pressure 119 mm[Hg] No Primary Care Physician [facility] 05-24-2024 08:31-0500 Body mass index (BMI) [Ratio] 38.2 kg/m2 No Primary Care Physician [facility] 05-24-2024 08:31-0500 Body weight 97.97 kg No Primary Care Physician [facility] 05-24-2024 08:31-0500 Diastolic blood pressure 72 mm[Hg] No Primary Care Physician [facility] 05-24-2024 08:31-0500 Systolic blood pressure 116 mm[Hg] No Primary Care Physician [facility] 03-17-2024 08:55-0400 Body height 160 cm Hector Winchester [employer]ION COUNSELOR.SECURITY ASSOCIATE Work Phone: [facility] 03-17-2024 08:55-0400 Body mass index (BMI) [Ratio] 35.78 kg/m2 Hector Trikehinde [employer] ADOPTION COUNSELOR.SECURITY ASSOCIATE Work Phone: [facility] 03-17-2024 08:55-0400 Body temperature 97.7 [degF] Hector Trikehinde PET ADOPTION COUNSELOR.SECURITY ASSOCIATE Work Phone: [facility] 03-17-2024 08:55-0400 Body weight 91.63 kg Hector Trikehinde PET ADOPTION COUNSELOR.SECURITY ASSOCIATE Work Phone: [facility] 03-17-2024 08:55-0400 Diastolic blood pressure 70 mm[Hg] Hector Winchester [employer] ADOPTION COUNSELOR.SECURITY ASSOCIATE Work Phone: [facility] 03-17-2024 08:55-0400 Heart rate 72 /min Hector Winchester [employer] ADOPTION COUNSELOR.SECURITY ASSOCIATE Work Phone: [facility] 03-17-2024 08:55-0400 SaO2% (BldA) [Mass fraction] 98 % Hector Winchester [employer] ADOPTION COUNSELOR.SECURITY ASSOCIATE Work Phone: [facility] 03-17-2024 08:55-0400 Systolic blood pressure 110 mm[Hg] Hector Winchester PET ADOPTION COUNSELOR.SECURITY ASSOCIATE Work Phone: [facility] 01-04-2024 11:17-0400 Body height 160 cm Hector Winchester [employer] ADOPTION COUNSELOR.SECURITY ASSOCIATE Work Phone: [facility] 01-04-2024 11:17-0400 Body mass index (BMI) [Ratio] 39.15 kg/m2 Hector Trikehinde [employer] ADOPTION COUNSELOR.SECURITY ASSOCIATE Work Phone: [facility] 01-04-2024 11:17-0400 Body temperature 98.29 [degF] Hector Trikehinde PET ADOPTION COUNSELOR.SECURITY ASSOCIATE Work Phone: [facility] 01-04-2024 11:17-0400 Body weight 100.25 kg Hector Marsha PET ADOPTION COUNSELOR.SECURITY ASSOCIATE Work Phone: [facility] 01-04-2024 11:17-0400 Diastolic blood pressure 70 mm[Hg] Hector Winchester PET ADOPTION COUNSELOR.SECURITY ASSOCIATE Work Phone: [facility] 01-04-2024 11:17-0400 Heart rate 73 /min Hector Winchester PET ADOPTION COUNSELOR.SECURITY ASSOCIATE Work Phone: [facility] 01-04-2024 11:17-0400 SaO2% (BldA) [Mass fraction] 99 % Hector Winchester PET ADOPTION COUNSELOR.SECURITY ASSOCIATE Work Phone: [facility] 01-04-2024 11:17-0400 Systolic blood pressure 110 mm[Hg] Hector Winchester PET ADOPTION COUNSELOR.SECURITY ASSOCIATE Work Phone: [facility] 10-22-2023 17:02-0400 Body height 160 cm Caitlin Garcia PET ADOPTION COUNSELOR-SECURITY ASSOCIATE Work Phone: [facility] 10-22-2023 17:02-0400 Body mass index (BMI) [Ratio] 37.91 kg/m2 Caitlin Garcia [employer] ADOPTION COUNSELOR-SECURITY ASSOCIATE Work Phone: [facility] 10-22-2023 17:02-0400 Body temperature 98.1 [degF] Caitlin Garcia PET ADOPTION COUNSELOR-SECURITY ASSOCIATE Work Phone: [facility] 10-22-2023 17:02-0400 Body weight 97.07 kg Caitlin Garcia PET ADOPTION COUNSELOR-SECURITY ASSOCIATE Work Phone: [facility] 10-22-2023 17:02-0400 Diastolic blood pressure 71 mm[Hg] Caitlin Paulata [employer] ADOPTION COUNSELOR-SECURITY ASSOCIATE Work Phone: [facility] 10-22-2023 17:02-0400 Heart rate 71 /min Caitlin Paulata [employer] ADOPTION COUNSELOR-SECURITY ASSOCIATE Work Phone: [facility] 10-22-2023 17:02-0400 Respiratory rate 14 /min Caitlin Garcia [employer] ADOPTION COUNSELOR-SECURITY ASSOCIATE Work Phone: [facility] 10-22-2023 17:02-0400 SaO2% (BldA) [Mass fraction] 97 % Caitlin Mehta [employer] ADOPTION COUNSELOR-SECURITY ASSOCIATE Work Phone: [facility] 10-22-2023 17:02-0400 Systolic blood pressure 108 mm[Hg] Caitlin Mehta [employer] ADOPTION COUNSELOR-SECURITY ASSOCIATE Work Phone: [facility] 03-12-2023 14:17-0400 Body height 160.02 cm No Primary Care Physician [facility] 03-12-2023 14:17-0400 Body mass index (BMI) [Ratio] 40 kg/m2 No Primary Care Physician [facility] 03-12-2023 14:17-0400 Body temperature 97.4 [degF] No Primary Care Physician [facility] 03-12-2023 14:17-0400 Body weight 102.51 kg No Primary Care Physician [facility] 03-12-2023 14:17-0400 Diastolic blood pressure 76 mm[Hg] No Primary Care Physician [facility] 03-12-2023 14:17-0400 Heart rate 102 /min No Primary Care Physician [facility] 03-12-2023 14:17-0400 Respiratory rate 18 /min No Primary Care Physician [facility] 03-12-2023 14:17-0400 SaO2% (BldA) [Mass fraction] 100 % No Primary Care Physician [facility] 03-12-2023 14:17-0400 Systolic blood pressure 128 mm[Hg] No Primary Care Physician [facility] 03-02-2023 16:26-0400 Body temperature 97.5 [degF] No Primary Care Physician [facility] 03-02-2023 16:26-0400 Diastolic blood pressure 80 mm[Hg] No Primary Care Physician [facility] 03-02-2023 16:26-0400 Heart rate 74 /min No Primary Care Physician [facility] 03-02-2023 16:26-0400 Respiratory rate 16 /min No Primary Care Physician [facility] 03-02-2023 16:26-0400 SaO2% (BldA) [Mass fraction] 99 % No Primary Care Physician [facility] 03-02-2023 16:26-0400 Systolic blood pressure 118 mm[Hg] No Primary Care Physician [facility] 03-02-2023 14:00-0400 Inhaled oxygen flow rate 2 L/min No Primary Care Physician [facility] 03-02-2023 09:44-0400 Body height 160.02 cm No Primary Care Physician [facility] 03-02-2023 09:44-0400 Body mass index (BMI) [Ratio] 40 kg/m2 No Primary Care Physician [facility] 03-02-2023 09:44-0400 Body weight 102.5 kg No Primary Care Physician [facility] 02-11-2023 10:06-0400 Body mass index (BMI) [Ratio] 40.1 kg/m2 No Primary Care Physician [facility] 02-11-2023 10:06-0400 Body temperature 96.7 [degF] No Primary Care Physician [facility] 02-11-2023 10:06-0400 Body weight 102.73 kg No Primary Care Physician [facility] 02-11-2023 10:06-0400 Diastolic blood pressure 81 mm[Hg] No Primary Care Physician [facility] 02-11-2023 10:06-0400 Heart rate 81 /min No Primary Care Physician [facility] 02-11-2023 10:06-0400 Respiratory rate 17 /min No Primary Care Physician [facility] 02-11-2023 10:06-0400 SaO2% (BldA) [Mass fraction] 97 % No Primary Care Physician [facility] 02-11-2023 10:06-0400 Systolic blood pressure 120 mm[Hg] No Primary Care Physician [facility] 01-11-2023 14:46-0400 Body height 160 cm No Pcp Required [facility] 01-11-2023 14:46-0400 Body temperature 97.7 [degF] No Pcp Required [facility] 01-11-2023 14:46-0400 Diastolic blood pressure 79 mm[Hg] No Pcp Required [facility] 01-11-2023 14:46-0400 Heart rate 82 /min No Pcp Required [facility] 01-11-2023 14:46-0400 SaO2% (BldA) [Mass fraction] 98 % No Pcp Required [facility] 01-11-2023 14:46-0400 Systolic blood pressure 121 mm[Hg] No Pcp Required [facility] 10-18-2022 07:00-0400 Diastolic blood pressure 67 mm[Hg] No Pcp Required [facility] 10-18-2022 07:00-0400 Heart rate 68 /min No Pcp Required [facility] 10-18-2022 07:00-0400 Respiratory rate 16 /min No Pcp Required [facility] 10-18-2022 07:00-0400 SaO2% (BldA) [Mass fraction] 98 % No Pcp Required [facility] 10-18-2022 07:00-0400 Systolic blood pressure 104 mm[Hg] No Pcp Required [facility] 08-18-2022 09:30-0400 Body temperature 97.7 [degF] No Primary Care Physician [facility] 08-18-2022 09:30-0400 Diastolic blood pressure 53 mm[Hg] No Primary Care Physician [facility] 08-18-2022 09:30-0400 Heart rate 92 /min No Primary Care Physician [facility] 08-18-2022 09:30-0400 Respiratory rate 16 /min No Primary Care Physician [facility] 08-18-2022 09:30-0400 SaO2% (BldA) [Mass fraction] 97 % No Primary Care Physician [facility] 08-18-2022 09:30-0400 Systolic blood pressure 101 mm[Hg] No Primary Care Physician [facility] 08-16-2022 08:04-0400 Body height 160.02 cm No Primary Care Physician [facility] 08-16-2022 08:04-0400 Body mass index (BMI) [Ratio] 40.7 kg/m2 No Primary Care Physician [facility] 08-16-2022 08:04-0400 Body weight 104.32 kg No Primary Care Physician [facility] 08-10-2022 11:12-0400 Body mass index (BMI) [Ratio] 40.4 kg/m2 No Primary Care Physician [facility] 08-10-2022 11:12-0400 Body weight 103.64 kg No Primary Care Physician [facility] 08-10-2022 11:12-0400 Diastolic blood pressure 77 mm[Hg] No Primary Care Physician [facility] 08-10-2022 11:12-0400 Systolic blood pressure 116 mm[Hg] No Primary Care Physician [facility] 08-03-2022 10:01-0400 Body mass index (BMI) [Ratio] 39.9 kg/m2 No Primary Care Physician [facility] 08-03-2022 10:01-0400 Body weight 102.11 kg No Primary Care Physician [facility] 08-03-2022 10:01-0400 Diastolic blood pressure 84 mm[Hg] No Primary Care Physician [facility] 08-03-2022 10:01-0400 Systolic blood pressure 120 mm[Hg] No Primary Care Physician [facility] 07-27-2022 10:32-0400 Body height 160.02 cm No Primary Care Physician [facility] 07-27-2022 10:30-0400 Body mass index (BMI) [Ratio] 40.4 kg/m2 No Primary Care Physician [facility] 07-27-2022 10:30-0400 Body weight 103.58 kg No Primary Care Physician [facility] 07-27-2022 10:30-0400 Diastolic blood pressure 74 mm[Hg] No Primary Care Physician [facility] 07-27-2022 10:30-0400 Systolic blood pressure 126 mm[Hg] No Primary Care Physician [facility] 07-25-2022 10:53-0500 Body temperature 98.4 [degF] No Primary Care Physician [facility] 07-25-2022 10:53-0500 Diastolic blood pressure 59 mm[Hg] No Primary Care Physician [facility] 07-25-2022 10:53-0500 Heart rate 96 /min No Primary Care Physician [facility] 07-25-2022 10:53-0500 SaO2% (BldA) [Mass fraction] 97 % No Primary Care Physician [facility] 07-25-2022 10:53-0500 Systolic blood pressure 119 mm[Hg] No Primary Care Physician [facility] 07-24-2022 14:50-0500 Body height 160.02 cm No Primary Care Physician [facility] 07-24-2022 14:50-0500 Body mass index (BMI) [Ratio] 41 kg/m2 No Primary Care Physician [facility] 07-24-2022 14:50-0500 Body weight 105 kg No Primary Care Physician [facility] 07-20-2022 12:11-0500 Body weight 103.87 kg No Primary Care Physician [facility] 07-20-2022 12:11-0500 Diastolic blood pressure 72 mm[Hg] No Primary Care Physician [facility] 07-20-2022 12:11-0500 Systolic blood pressure 113 mm[Hg] No Primary Care Physician [facility] 07-13-2022 10:10-0500 Body mass index (BMI) [Ratio] 40.4 kg/m2 No Primary Care Physician [facility] 07-13-2022 10:10-0500 Body weight 103.53 kg No Primary Care Physician [facility] 07-13-2022 10:10-0500 Diastolic blood pressure 78 mm[Hg] No Primary Care Physician [facility] 07-13-2022 10:10-0500 Systolic blood pressure 118 mm[Hg] No Primary Care Physician [facility] 07-06-2022 10:50-0500 Body height 160.02 cm No Primary Care Physician [facility] 07-06-2022 10:50-0500 Body mass index (BMI) [Ratio] 39.7 kg/m2 No Primary Care Physician [facility] 07-06-2022 10:50-0500 Body weight 101.83 kg No Primary Care Physician [facility] 07-06-2022 10:50-0500 Diastolic blood pressure 73 mm[Hg] No Primary Care Physician [facility] 07-06-2022 10:50-0500 Systolic blood pressure 111 mm[Hg] No Primary Care Physician [facility] 06-29-2022 08:57-0500 Body mass index (BMI) [Ratio] 39.9 kg/m2 No Primary Care Physician [facility] 06-29-2022 08:57-0500 Body weight 102.22 kg No Primary Care Physician [facility] 06-29-2022 08:57-0500 Diastolic blood pressure 66 mm[Hg] No Primary Care Physician [facility] 06-29-2022 08:57-0500 Systolic blood pressure 108 mm[Hg] No Primary Care Physician [facility] 06-22-2022 14:38-0500 Body mass index (BMI) [Ratio] 39.8 kg/m2 No Primary Care Physician [facility] 06-22-2022 14:38-0500 Body weight 102.05 kg No Primary Care Physician [facility] 06-22-2022 14:38-0500 Diastolic blood pressure 67 mm[Hg] No Primary Care Physician [facility] 06-22-2022 14:38-0500 Systolic blood pressure 112 mm[Hg] No Primary Care Physician [facility] 06-08-2022 10:46-0500 Body height 160.02 cm No Primary Care Physician [facility] 06-08-2022 10:45-0500 Body mass index (BMI) [Ratio] 39.3 kg/m2 No Primary Care Physician [facility] 06-08-2022 10:45-0500 Body weight 100.69 kg No Primary Care Physician [facility] 06-08-2022 10:45-0500 Diastolic blood pressure 70 mm[Hg] No Primary Care Physician [facility] 06-08-2022 10:45-0500 Systolic blood pressure 116 mm[Hg] No Primary Care Physician [facility] 05-27-2022 11:37-0500 Diastolic blood pressure 74 mm[Hg] No Primary Care Physician [facility] 05-27-2022 11:37-0500 Systolic blood pressure 110 mm[Hg] No Primary Care Physician [facility] 05-27-2022 11:35-0500 Body weight 99.96 kg No Primary Care Physician [facility] 05-12-2022 13:10-0500 Diastolic blood pressure 68 mm[Hg] No Primary Care Physician [facility] 05-12-2022 13:10-0500 Systolic blood pressure 128 mm[Hg] No Primary Care Physician [facility] 05-12-2022 12:57-0500 Body mass index (BMI) [Ratio] 39.2 kg/m2 No Primary Care Physician [facility] 05-12-2022 12:57-0500 Body weight 100.41 kg No Primary Care Physician [facility] 04-13-2022 14:36-0500 Body mass index (BMI) [Ratio] 38.6 kg/m2 No Primary Care Physician [facility] 04-13-2022 14:36-0500 Body weight 98.88 kg No Primary Care Physician [facility] 04-13-2022 14:36-0500 Diastolic blood pressure 76 mm[Hg] No Primary Care Physician [facility] 04-13-2022 14:36-0500 Systolic blood pressure 138 mm[Hg] No Primary Care Physician [facility] 03-31-2022 15:41-0500 Body height 160 cm Ellen Veras Other Phone: [facility] 03-31-2022 15:41-0500 Body temperature 96.98 [degF] Ellen Veras Other Phone: [facility] 03-31-2022 15:41-0500 Diastolic blood pressure 76 mm[Hg] Ellen Veras Other Phone: [facility] 03-31-2022 15:41-0500 Heart rate 88 /min Ellen Veras Other Phone: [facility] 03-31-2022 15:41-0500 Respiratory rate 16 /min Ellen Veras Other Phone: [facility] 03-31-2022 15:41-0500 SaO2% (BldA) [Mass fraction] 100 % Ellen Veras Other Phone: [facility] 03-31-2022 15:41-0500 Systolic blood pressure 122 mm[Hg] Ellen Veras Other Phone: [facility] 03-16-2022 14:23-0400 Body mass index (BMI) [Ratio] 38.5 kg/m2 No Primary Care Physician [facility] 03-16-2022 14:23-0400 Body weight 98.65 kg No Primary Care Physician [facility] 03-16-2022 14:23-0400 Diastolic blood pressure 76 mm[Hg] No Primary Care Physician [facility] 03-16-2022 14:23-0400 Systolic blood pressure 128 mm[Hg] No Primary Care Physician [facility] 02-16-2022 14:18-0400 Body mass index (BMI) [Ratio] 38.6 kg/m2 No Primary Care Physician [facility] 02-16-2022 14:18-0400 Body weight 98.88 kg No Primary Care Physician [facility] 02-16-2022 14:18-0400 Diastolic blood pressure 78 mm[Hg] No Primary Care Physician [facility] 02-16-2022 14:18-0400 Systolic blood pressure 126 mm[Hg] No Primary Care Physician [facility] 01-20-2022 14:51-0400 Body height 160.02 cm No Primary Care Physician [facility] Work Phone: 01-20-2022 14:51-0400 Body mass index (BMI) [Ratio] 38.8 kg/m2 No Primary Care Physician [facility] Work Phone: 01-20-2022 14:51-0400 Body weight 99.5 kg No Primary Care Physician [facility] Work Phone: 01-20-2022 14:51-0400 Diastolic blood pressure 82 mm[Hg] No Primary Care Physician [facility] Work Phone: 01-20-2022 14:51-0400 Systolic blood pressure 125 mm[Hg] No Primary Care Physician [facility] Work Phone: Encounters Encounter Date Encounter Type Care Provider Facility Start: 11-20-2024 End: 11-20-2024 ambulatory No Primary Care Physician Facility:[facility] Start: 11-20-2024 End: 11-20-2024 Patient encounter procedure Cristy Abreu CNM -[facility] Work Phone: Start: 11-15-2024 End: 11-15-[address] Evelyn Villa DO -[facility] Work Phone: Start: 11-15-2024 End: 11-15-2024 ambulatory No Primary Care Physician -[facility] Start: 11-09-2024 End: 11-09-[address] Penelope Yang MD -[facility] Work Phone: Start: 11-09-2024 End: 11-09-2024 ambulatory No Primary Care Physician [facility] Work Phone: Start: 11-06-2024 End: 11-06-2024 ambulatory No Primary Care Physician -[facility] Start: 11-06-2024 End: 11-06-[address] Evelyn Villa DO -[facility] Work Phone: Start: 11-05-2024 End: 11-06-2024 ambulatory Evelyn Villa Facility:[facility] Start: 11-05-2024 Non-patient / Non-visit Dr. Dheeraj Yang MD -[facility] Start: 11-02-2024 End: 11-02-2024 ambulatory No Primary Care Physician [facility] Work Phone: Start: 11-02-2024 End: 11-02-[address] Penelope Yang MD -[facility] Work Phone: Start: 11-02-2024 Non-patient / Non-visit Dr. Dheeraj Yang MD -[facility] Start: 11-01-2024 End: 11-01-2024 ambulatory No Primary Care Physician [facility] Work Phone: Start: 11-01-2024 End: 11-01-[address] Penelope Yang MD -[facility] Work Phone: Start: 11-01-2024 End: 11-01-[address] Penelope Yang MD -[facility] Work Phone: Start: 11-01-2024 End: 11-01-2024 ambulatory No Primary Care Physician [facility] Work Phone: Start: 11-01-2024 End: 11-01-2024 ambulatory No Primary Care Physician Facility:[facility] Start: 11-01-2024 Non-patient / Non-visit Dr. Dheeraj Yang MD -[facility] Start: 10-20-2024 End: 10-20-2024 Patient encounter procedure Cristy Abreu CNM -[facility] Work Phone: Start: 10-20-2024 End: 10-20-2024 ambulatory No Primary Care Physician [facility] Work Phone: Start: 10-04-2024 End: 10-04-2024 ambulatory No Primary Care Physician [facility] Work Phone: Start: 10-04-2024 End: 10-04-[address] Evelyn Villa DO -[facility] [facility] Work Phone: Start: 10-04-2024 End: 10-04-2024 ambulatory Evelyn Villa Facility:[facility] Start: 10-02-2024 End: 10-02-[address] Evelyn Villa DO -[facility] Work Phone: Start: 10-02-2024 End: 10-02-2024 ambulatory No Primary Care Physician [facility] Work Phone: Start: 09-20-2024 End: 09-20-2024 Patient encounter procedure Gui SERNA -[facility] Work Phone: Start: 09-20-2024 End: 09-20-2024 ambulatory No Primary Care Physician Facility:[facility] Start: 08-21-2024 End: 08-21-[address] Penelope Yang MD -[facility] Work Phone: Start: 08-21-2024 End: 08-21-2024 ambulatory No Primary Care Physician [facility] Work Phone: Start: 08-21-2024 End: 08-21-2024 ambulatory No Primary Care Physician Facility:[facility] Start: 07-28-2024 End: 07-28-2024 Patient encounter procedure Rina Mead CNM -[facility] Work Phone: Start: 07-28-2024 End: 07-28-2024 ambulatory Rina Mead Facility:[facility] Start: 07-17-2024 End: 07-17-2024 ambulatory KURT LILLY [facility] Start: 07-06-2024 End: 07-06-2024 ambulatory CRYSTAL ORTIZ [facility] Start: 06-26-2024 End: 06-26-2024 Patient encounter procedure Cristy Abreu CNM -[facility] Work Phone: Start: 06-26-2024 End: 06-26-2024 ambulatory No Primary Care Physician Facility:[facility] Start: 06-17-2024 End: 06-17-2024 ambulatory HECTOR WINCHESTER Facility:[facility] Start: 06-17-2024 End: 06-17-2024 Telemedicine consultation with patient Julia Browne SECURITY ASSOCIATE Work Phone: Telemedicine Comment on above: Acute cough (Primary Dx); Acute URI; Sinus drainage; PND (post-nasal drip); 16 weeks gestation of Start: 05-24-2024 End: 05-24-2024 Patient encounter procedure Gui Sloan NP-C -[facility] Work Phone: Start: 05-24-2024 End: 05-24-2024 ambulatory No Primary Care Physician Facility:[facility] Start: 04-24-2024 End: 04-24-2024 ambulatory Evelyn Villa Facility:[facility] Start: 04-24-2024 End: 04-24-2024 ambulatory [facility] Facility[facility] Start: 03-17-2024 End: 03-17-2024 Patient encounter procedure Hector Winchester APRN.SECURITY ASSOCIATE Work Phone: [facility] Comment on above: MADDIE (generalized anx iety disorder) (Primary Dx); Tremor; Screening for lipid disorders; Psoriasis of scalp Start: 03-17-2024 End: 03-17-2024 ambulatory HECTOR WINCHESTER Facility:[facility] Start: 02-16-2024 End: 02-16-2024 Telephone encounter Hector Winchester APRN.SECURITY ASSOCIATE Work Phone: [facility] Comment on above: Results Start: 02-15-2024 End: 02-15-2024 ambulatory HECTOR WINCHESTER Facility:[facility] Start: 01-11-2024 End: 01-11-2024 ambulatory Hector Winchester PET ADOPTION COUNSELOR.SECURITY ASSOCIATE Work Phone: [facility] Comment on above: Medication Start: 01-04-2024 End: 01-04-2024 Patient encounter procedure Hector Winchester PET ADOPTION COUNSELOR.SECURITY ASSOCIATE Work Phone: [facility] Comment on above: MADDIE (generalized anx iety disorder) (Primary Dx); Urinary frequency; Incomplete bladder emptying; Acute pain of left knee Start: 01-04-2024 End: 01-04-2024 ambulatory HECTOR WINCHESTER Facility:[facility] Start: 10-22-2023 End: 10-22-2023 Patient encounter procedure Caitlin Danielito Paulata PET ADOPTION COUNSELOR-SECURITY ASSOCIATE Work Phone: [facility] Comment on above: Acute laryngitis (Pr imary Dx); Acute sinusitis, recurrence not specified, unspecified location Start: 10-22-2023 End: 10-22-2023 ambulatory [facility] Start: 03-12-2023 End: 03-12-2023 Emergency department patient visit No Primary Care Physician [facility] Work Phone: Start: 03-02-2023 Non-patient / Non-visit No [facility] Physician [facility] Start: 03-02-2023 End: 03-02-2023 Admission to same day surgery center No Primary Care Physician [facility] Start: 03-02-2023 End: 03-02-2023 ambulatory No Primary Care Physician [facility] Work Phone: Start: 02-11-2023 End: 02-11-2023 Patient encounter procedure No Primary Care Physician [facility] Work Phone: Start: 01-11-2023 End: 01-11-2023 Emergency department patient visit Ismael Davenport [facility] Start: 10-18-2022 End: 10-18-2022 Emergency department patient visit Ana Shabazz [facility] Emergency 15 Start: 08-18-2022 Non-patient / Non-visit No Clotilde mitul Care Physician [facility] Start: 08-17-2022 Non-patient / Non-visit No Clotilde mitul Care Physician [facility] Start: 08-16-2022 Non-patient / Non-visit No Clotilde mitul Care Physician [facility] Start: 08-16-2022 End: 08-18-2022 Evaluation and management of inpatient No Primary Care Physician [facility] Start: 08-10-2022 End: 08-10-2022 Patient encounter procedure No Primary Care Physician [facility] Start: 08-03-2022 End: 08-03-2022 Patient encounter procedure No Primary Care Physician [facility] Start: 07-27-2022 End: 07-28-2022 Evaluation and management of inpatient No Primary Care Physician [facility] Start: 07-27-2022 End: 07-28-2022 observation encounter No Primary Care Physician [facility] Work Phone: Start: 07-27-2022 End: 07-27-2022 Patient encounter procedure No Primary Care Physician [facility] Start: 07-24-2022 Non-patient / Non-visit No Clotilde mitul Care Physician [facility] Start: 07-24-2022 End: 07-25-2022 Evaluation and management of inpatient No Primary Care Physician [facility] Start: 07-24-2022 End: 07-25-2022 observation encounter No Primary Care Physician [facility] Work Phone: Start: 07-24-2022 End: 07-25-2022 ambulatory No Primary Care Physician [facility] Work Phone: Start: 07-24-2022 End: 07-25-2022 Patient encounter procedure No Primary Care Physician [facility], Outpatients Start: 07-20-2022 End: 07-20-2022 Patient encounter procedure No Primary Care Physician [facility] Start: 07-13-2022 End: 07-13-2022 Patient encounter procedure No Primary Care Physician [facility] Start: 07-06-2022 End: 07-06-2022 Patient encounter procedure No Primary Care Physician [facility] Start: 06-29-2022 End: 06-29-2022 ambulatory No Primary Care Physician [facility] Work Phone: Start: 06-29-2022 End: 06-29-2022 Patient encounter procedure No Primary Care Physician [facility] Start: 06-22-2022 End: 06-22-2022 Patient encounter procedure No Primary Care Physician [facility] Start: 06-08-2022 End: 06-08-2022 Patient encounter procedure No Primary Care Physician [facility] Start: 05-27-2022 End: 05-27-2022 Patient encounter procedure No Primary Care Physician [facility] Start: 05-25-2022 End: 05-25-2022 ambulatory No Primary Care Physician [facility] Work Phone: Start: 05-25-2022 End: 05-25-2022 Patient encounter procedure No Primary Care Physician [facility] Start: 05-12-2022 End: 05-12-2022 Patient encounter procedure No Primary Care Physician [facility] Start: 04-13-2022 End: 04-13-2022 Patient encounter procedure No Primary Care Physician [facility] Start: 03-31-2022 End: 03-31-2022 [facility] Start: 03-16-2022 End: 03-16-2022 Patient encounter procedure No Primary Care Physician [facility] Start: 02-16-2022 End: 02-16-2022 Patient encounter procedure No Primary Care Physician [facility] Start: 01-29-2022 End: 01-29-2022 ambulatory No Primary Care Physician [facility] Work Phone: Start: 01-29-2022 End: 01-29-2022 Patient encounter procedure No Primary Care Physician [facility] Start: 01-20-2022 End: 01-20-2022 ambulatory No Primary Care Physician [facility] Work Phone: Start: 01-20-2022 End: 01-20-2022 Patient encounter procedure No Primary Care Physician [facility], Specimen Start: 01-20-2022 End: 01-20-2022 Patient encounter procedure No Primary Care Physician [facility] Start: 07-05-2020 Patient encounter procedure Yunior Mercado [facility] [address] Work Phone: Start: 06-14-2020 Patient encounter procedure Yunior Mercado [facility] [address] Work Phone: Start: 09-08-2018 End: 09-09-2018 Patient encounter procedure Parminder Anisa Winter Facility:[facility] Start: 08-04-2018 End: 08-05-2018 Patient encounter procedure Parminder Anisa Winter Facility:[facility] Start: 07-25-2018 End: 07-26-2018 Patient encounter procedure Parminder Anisa Winter Facility:[facility] Start: 07-25-2018 End: 07-26-2018 Patient encounter procedure Parminder Winter Facility:[facility] Start: 07-14-2018 End: 07-14-2018 Patient encounter procedure Emir Youssef Facility:[facility] Start: 02-10-2018 End: 02-11-2018 Patient encounter procedure Emir Youssef Facility:[facility] Start: 02-10-2018 End: 02-11-2018 Patient encounter procedure Emir Youssef Facility:[facility] Start: 11-16-2017 End: 11-16-2017 Emergency department patient visit PARMINDER Anisa WINTER Facility:[facility] Start: 10-05-2017 End: 10-05-2017 Patient encounter procedure Lon Acosta Facility:[facility] Start: 09-21-2017 End: 09-21-2017 Patient encounter procedure Parminder Anisa Winter Facility:[facility] Start: 04-17-2017 End: 04-18-2017 Emergency department patient visit [facility] Procedures Date Procedure Procedure Detail Performing Clinician Start: 11-06-2024 Ultrasound scan for growth No Primary Care Physician Start: 11-01-2024 Beta-hemolytic Strep tococcus culture No Primary Care Physician Start: 10-04-2024 Ultrasound scan for growth No [...] Comment on above: laparoscopic 02/2023 Tonsillectomy Yunior [facility] Urine culture No Primary Car e Physician Urine culture No Primary Car e Physician Plan of Treatment Date Care Activity Detail Author Start: 11-09-2045 Zoster Vaccines (1 of 2) Zoste r Vaccines (1 of 2) [facility] Start: 03-17-2025 Covid-19 Vaccine ( season) Covid-19 Vaccine ( season) [facility] Comment on above: Postponed from 01/15 (Declined at this time) Start: 03-17-2025 HPV Vaccine (2 - 3-d ose series) HPV Vaccine (2 - 3-dose series) [facility] Comment on above: Postponed from 12/19 (Declined at this time) Start: 11-21-2024 DTaP/Tdap/Td Vaccine s (8 - Td or Tdap) DTaP/Tdap/Td Vaccines (8 - Td or Tdap) [facility] Start: 11-21-2024 Urine microalbumin profile DTa P,Tdap,Td Vaccine (8 - Td or Tdap) [facility] Start: 11-13-2024 Influenza vaccination Influenza Vacc ine (#1) [facility] Comment on above: Postponed from 01/15 (Declined at this time) Start: 11-02-2024 Nonstress test [facility] Start: 11-02-2024 Obstetric monitoring [facility] Start: 11-02-2024 Vital signs measurements [facility] Start: 11-02-2024 [facility] Start: 11-01-2024 Group B Streptococcu s Culture Group B Streptococcus Culture [facility] Start: 11-01-2024 Streptococcus agalac tiae [Presence] in Unspecified specimen by Organism specific culture [facility] Start: 06-19-2024 End: 06-19-2024 Patient encounter procedure 06/19/2024 11:00 AM EST Office Visit [facility] [address] [place] [address] Hector Winchester, PAPA.[facility] [address] [place] [address] 3 MTH F/U Anxiety [facility] Comment on above: 3 MTH F/U Anxiety Start: 03-17-2024 End: 10-13-2024 CBC panel - Blood by Automated count COMPLETE BLOOD COUNT Lab Routine Tremor Expected: 03/17/2024, Expires: 10/13/2024 [facility] Work Phone: Comment on above: Expected: 03/17/2024 , Expires: 10/13/2024 Start: 03-17-2024 End: 10-13-2024 Cobalamin (Vitamin B12) [Mass/volume] in Serum or Plasma VITAMIN B12 Lab Routine Tremor Expected: 03/17/2024, Expires: 10/13/2024 [facility] Comment on above: Expected: 03/17/2024 , Expires: 10/13/2024 Start: 03-17-2024 End: 10-13-2024 Comprehensive metabolic 2000 panel - Serum or Plasma COMPREHENSIVE METABOLIC PANEL Lab Routine Tremor Expected: 03/17/2024, Expires: 10/13/2024 [facility] Comment on above: Expected: 03/17/2024 , Expires: 10/13/2024 Start: 03-17-2024 End: 10-13-2024 Lipid 1996 panel - Serum or Plasma LIPID PANEL BASIC Lab Routine Screening for lipid disorders Expected: 03/17/2024, Expires: 10/13/2024 [facility] Comment on above: Expected: 03/17/2024 , Expires: 10/13/2024 Start: 03-17-2024 End: 10-13-2024 Thyrotropin [Units/volume] in Serum or Plasma THYROID STIMULATING HORMONE Lab Routine Tremor Expected: 03/17/2024, Expires: 10/13/2024 [facility] Comment on above: Expected: 03/17/2024 , Expires: 10/13/2024 Start: 03-17-2024 End: 03-17-2024 Patient encounter procedure Urology Comment on above: OAB 6 week follow up anx iety Start: 02-15-2024 End: 02-15-2024 Patient encounter procedure 02/15/2024 1:00 PM EDT Office Visit [facility] [address] [place] [address] Hector Winchester, PAPA.SECURITY ASSOCIATE [address] [place] [address] 6 week follow up anxiety [facility] Comment on above: 6 week follow up anx iety Start: 01-16-2024 Covid-19 Vaccine ( season) Covid-19 Vaccine ( season) [facility] Start: 01-16-2024 Influenza vaccination [facility] Start: 01-04-2024 End: 04-04-2024 Urinalysis complete panel - Urine URINALYSIS, WITH MICROSCOPIC Lab Routine Urinary frequency Incomplete bladder emptying Expected: 01/04/2024, Expires: 04/04/2024 [facility] Work Phone: Comment on above: Expected: 01/04/2024 , Expires: 04/04/2024 Start: 03-12-2023 [facility] Start: 03-02-2023 Anes intraperitoneal upper abdomen w/laps nos ANESTH SURG UPPER ABDOMEN [facility] Start: 03-02-2023 Laps surg cholecyste ctomy w/cholangiography LAPARO CHOLECYSTECTOMY/GRAPH [facility] Start: 03-02-2023 Patient discharge [facility] Start: 03-02-2023 Cholangiogram Cholangiogram/ O R,Initial [facility] Start: 03-02-2023 XR Biliary ducts and Gallbladder Views W contrast IV [facility] Start: 01-15-2023 COVID-19 Vaccine () COVID-19 Vaccine () [facility] Start: 08-18-2022 Patient discharge [facility] Start: 08-16-2022 Administration of medication [facility] Start: 08-16-2022 Application of ice c ollar, cap or bag [facility] Start: 08-16-2022 Catheterization of vein [facility] Start: 08-16-2022 Introduction of urin latonya catheter [facility] Start: 08-16-2022 Measuring intake and output [facility] Start: 08-16-2022 Notification of physician [facility] Start: 08-16-2022 Procedure discontinued [facility] Start: 08-16-2022 Provision of activit y privileges [facility] Start: 08-16-2022 Vital signs measurements [facility] Start: 08-16-2022 [facility] Start: 08-16-2022 Admission procedure [facility] Start: 07-25-2022 Patient discharge [facility] Start: 07-25-2022 Patient referral to dietitian [facility] Start: 07-24-2022 Nonstress test [facility] Start: 07-24-2022 Obstetric monitoring [facility] Start: 07-24-2022 Vital signs measurements [facility] Start: 07-24-2022 Admission procedure [facility] Start: 07-24-2022 End: 07-24-2022 [facility] Start: 07-24-2022 Iv infusion hydratio n each additional hour HYDRATE IV INFUSION ADD-ON [facility] Start: 07-24-2022 Iv infusion ther pro ph addl sequential to 1 hr TX/PROPH/DG ADDL SEQ IV INF [facility] Start: 07-24-2022 Iv infusion therapy/prophylaxis /dx 1st to 1 hr THER/PROPH/DIAG IV INF INIT [facility] Start: 07-24-2022 Therapeutic injectio n iv push each new drug TX/PRO/DX INJ NEW DRUG ADDON [facility] Start: 01-20-2022 Chlamydia deoxyribon ucleic acid detection [facility] Work Phone: Start: 01-20-2022 Liquid based cervica l cytology screening [facility] Work Phone: Start: 11-09-2016 Screening for malign ant neoplasm of cervix [facility] Start: 12-19-2014 HPV Vaccine (2 - 3-d ose series) HPV Vaccine (2 - 3-dose series) [facility] Start: 12-19-2014 HPV Vaccines (2 - 3- dose series) HPV Vaccines (2 - 3-dose series) [facility] Start: 11-09-2013 Depression Screening Depression Scre ening [facility] Start: 11-09-2013 Hepatitis C screening Hepatitis C [facility] Start: 11-09-2013 HIV screening HIV Screening [facility] Start: 1995 HIV screening HIV Screening [facility] Start: 1995 Lipid panel Lipid Panel [facility] Start: 1995 Yearly Adult Physical Yearly Adult P [facility] Bacteria identified in Urine by Culture [facility] Bacteria identified in Urine by Culture Urine Culture [facility] Beta-hemolytic Streptococcus culture [facility] CBC W Auto Different ial panel - Blood [facility] Work Phone: Glucose [Mass/volume ] in Serum or Plasma --1 hour post 50 g glucose PO [facility] Work Phone: Group B Streptococcu s Culture Group B Streptococcus Culture [facility] Hepatitis B surface antigen measurement [facility] Work Phone: Hepatitis C antibody measurement [facility] Work Phone: HIV 1+2 Ab+HIV1 p24 Ag [Presence] in Serum or Plasma by Immunoassay [facility] Work Phone: Neisseria gonorrhoea e rRNA [Presence] in Unspecified specimen by ABBY with probe detection [facility] Work Phone: Path report.final Dx Spec [facility] Work Phone: Patient Education [facility] Work Phone: Patient referral [facility] Work Phone: PCR test for Chlamyd ia trachomatis [facility] Work Phone: Rubella IgG measurement [facility] Work Phone: Streptococcus agalac tiae [Presence] in Unspecified specimen by Organism specific culture [facility] Treponema sp Ab [Pre sence] in Serum [facility] Work Phone: Ultrasound scan for growth [facility] End: 02-02-2025 XR Knee - left AP and Lateral and oblique XR KNEE INJURY 4V AP/LAT/OBLS LEFT Radiology Routine Acute pain of left knee 1 Occurrences starting 01/04/2024 until 02/02/2025 [facility] Comment on above: 1 Occurrences starti ng 01/04/2024 until 02/02/2025 [facility] Immunizations Immunization Date Immunization Notes Care Provider Sadia kinney 11-21-2014 hepatitis A vaccine, pediatric/adolescent dosage, 2 dose schedule Hector Winchester APRN.SECURITY ASSOCIATE Work Phone: [facility] 11-21-2014 human papilloma viru s vaccine, quadrivalent Hector Winchester APRN.SECURITY ASSOCIATE Work Phone: [facility] 11-21-2014 meningococcal polysaccharide (groups A, C, Y and W-135) diphtheria toxoid conjugate vaccine (MCV4P) Hector Winchester APRN.SECURITY ASSOCIATE Work Phone: [facility] 11-21-2014 tetanus toxoid, redu lluvia diphtheria toxoid, and acellular pertussis vaccine, adsorbed Hector Winchester PET ADOPTION COUNSELOR.SECURITY ASSOCIATE Work Phone: [facility] 11-21-2014 HPV, unspecified formulation Caitlin Mehta PET ADOPTION COUNSELOR-SECURITY ASSOCIATE Work Phone: [facility] Work Phone: 12-19-2008 meningococcal ACWY vaccine, unspecified formulation Hector Trill PET ADOPTION COUNSELOR.SECURITY ASSOCIATE Work Phone: [facility] 12-19-2008 tetanus toxoid, redu lluvia diphtheria toxoid, and acellular pertussis vaccine, adsorbed Hector Trill PET ADOPTION COUNSELOR.SECURITY ASSOCIATE Work Phone: [facility] 12-19-2008 varicella virus vaccine Raghu tin Trill PET ADOPTION COUNSELOR.SECURITY ASSOCIATE Work Phone: [facility] 2000 diphtheria, tetanus toxoids and acellular pertussis vaccine, unspecified formulation Hector Trill PET ADOPTION COUNSELOR.SECURITY ASSOCIATE Work Phone: [facility] 2000 poliovirus vaccine, unspecified formulation Hector Trill PET ADOPTION COUNSELOR.SECURITY ASSOCIATE Work Phone: [facility] 12-24-1998 measles, mumps and rubella virus vaccine Hector Trill PET ADOPTION COUNSELOR.SECURITY ASSOCIATE Work Phone: [facility] 05-14-1997 diphtheria, tetanus toxoids and acellular pertussis vaccine, unspecified formulation Hector Trill PET ADOPTION COUNSELOR.SECURITY ASSOCIATE Work Phone: [facility] 11-14-1996 haemophilus influenz ae type b vaccine, conjugate unspecified formulation Hector Trill PET ADOPTION COUNSELOR.SECURITY ASSOCIATE Work Phone: [facility] 11-14-1996 measles, mumps and rubella virus vaccine Hector Trill PET ADOPTION COUNSELOR.SECURITY ASSOCIATE Work Phone: [facility] 11-14-1996 varicella virus vaccine Raghu tin Trill PET ADOPTION COUNSELOR.SECURITY ASSOCIATE Work Phone: [facility] 08-04-1996 hepatitis B vaccine, pediatric or pediatric/adolescent dosage Hector Trill PET ADOPTION COUNSELOR.SECURITY ASSOCIATE Work Phone: [facility] 05-12-1996 diphtheria, tetanus toxoids and acellular pertussis vaccine, unspecified formulation Hector Trill PET ADOPTION COUNSELOR.SECURITY ASSOCIATE Work Phone: [facility] 05-12-1996 haemophilus influenz ae type b vaccine, conjugate unspecified formulation Hector Trill PET ADOPTION COUNSELOR.SECURITY ASSOCIATE Work Phone: [facility] 05-12-1996 poliovirus vaccine, unspecified formulation Hector Trill PET ADOPTION COUNSELOR.SECURITY ASSOCIATE Work Phone: [facility] 03-14-1996 diphtheria, tetanus toxoids and acellular pertussis vaccine, unspecified formulation Hector Trill PET ADOPTION COUNSELOR.SECURITY ASSOCIATE Work Phone: [facility] 03-14-1996 haemophilus influenz ae type b vaccine, conjugate unspecified formulation Hector Trill PET ADOPTION COUNSELOR.SECURITY ASSOCIATE Work Phone: [facility] 03-14-1996 poliovirus vaccine, unspecified formulation Hector Trill PET ADOPTION COUNSELOR.SECURITY ASSOCIATE Work Phone: [facility] 01-11-1996 diphtheria, tetanus toxoids and acellular pertussis vaccine, unspecified formulation Hector Trill PET ADOPTION COUNSELOR.SECURITY ASSOCIATE Work Phone: [facility] 01-11-1996 haemophilus influenz ae type b vaccine, conjugate unspecified formulation Hector Trill PET ADOPTION COUNSELOR.SECURITY ASSOCIATE Work Phone: [facility] 01-11-1996 poliovirus vaccine, unspecified formulation Hector Trill PET ADOPTION COUNSELOR.SECURITY ASSOCIATE Work Phone: [facility] 1995 hepatitis B vaccine, pediatric or pediatric/adolescent dosage Hector Trill PET ADOPTION COUNSELOR.SECURITY ASSOCIATE Work Phone: [facility] 1995 hepatitis B vaccine, pediatric or pediatric/adolescent dosage Hector Trill PET ADOPTION COUNSELOR.SECURITY ASSOCIATE Work Phone: [facility] Payers Date Payer Category Payer Self-pay 2022 Medicaid [employer] [id number] 2022-Present [phone] [address] [place] [address] Medicaid [id number] 2022 Medicaid [id number] 2017 Unknown 1995 Unknown [id number] 2.16.840.1.709618.3.579.2. 1995 Unknown [id number] 2.16.840.1.623963.3.579.2.355 1995 Unknown [id number] 2.16.840.1.861931.3.579.2. 1995 Unknown [id number] 2.16.840.1.272815.3.579.2. 1995 Unknown [id number] 2.16.840.1.216653.3.579.2. 1995 Unknown [id number] 2.16.840.1.127202.3.579.2. 1995 Unknown [id number] 2.16.840.1.417274.3.579.2. 1995 Unknown [id number] 2.16.840.1.407481.3.579.2. 1995 Unknown [id number] 2.16.840.1.698802.3.579.2. 1995 Unknown [id number] 2.16.840.1.278961.3.579.2. 1995 Unknown [id number] 2.16.840.1.143124.3.579.2.1068 1995 Unknown [id number] 2.16.840.1.365601.3.579.2.1068 1995 Unknown [id number] 2.16.840.1.762304.3.579.2.1243 1995 Unknown [id number] 2.16.840.1.655059.3.579.2.479 1995 Unknown [id number] 2.16.840.1.325913.3.579.2.479 Unknown [id number] Unknown [id number] 2.16.840.1.661196.3.579.2.462 Unknown [id number] 2.16.840.1.190184.3.579.2.462 Unknown [id number] 2.16.840.1.380164.3.579.2.462 Unknown [id number] 2.16.840.1.577035.3.579.2.462 Unknown [id number] 2.16.840.1.936131.3.579.2.462 Unknown [id number] 2.16.840.1.463752.3.579.2.462 Unknown [id number] 2.840.1.702310.3.579.2.462 Unknown [id number] 2.840.1.883470.3.579.2.462 Unknown [id number] 2.840.1.688224.3.579.2.462 Unknown [id number] 2.840.1.997711.3.579.2.462 Unknown [id number] 2.16840.1.730037.3.579.2.462 Unknown [id number] 2.16840.1.281639.3.579.2.462 Unknown [id number] 2.16.840.1.152834.3.579.2.462 Unknown [id number] 2.840.1.984846.3.579.2.462 Unknown [id number] 2.16.840.1.414545.3.579.2.462 Unknown [id number] 2.16.840.1.150497.3.579.2.462 Unknown [id number] 2.16.840.1.967580.3.579.2.462 Unknown [id number] 2.16.840.1.605554.3.579.2.462 Unknown [id number] 2.16840.1.491744.3.579.2.462 Unknown [id number] 2.16.840.1.719148.3.579.2.462 Unknown [id number] 2.16.840.1.357013.3.579.2.462 Social History Date Type Detail Facility Start: 01-20-2022 End: 03-12-2023 Tobacco smoking status NHIS Unknown if ever smoked [facility] Start: 1995 Sex Assigned At Female W [facility] Start: 10-22-2023 End: 04-18-2024 Tobacco smoking status NHIS Never smoked tobacco [facility] Work Phone: Start: 10-22-2023 End: 01-04-2024 Tobacco use and exposure Smokeless tobacco non-user [facility] Work Phone: Start: 10-22-2023 End: 02-15-2024 History of Social function [facility] Work Phone: Start: 10-22-2023 End: 02-15-2024 Tobacco use panel [facility] Work Phone: Start: 1995 Sex assigned at Not on file [facility] Work Phone: Start: 10-12-2023 End: 10-22-2023 Exposure to SARS-CoV-2 (event) Not sure [facility] Start: 01-04-2024 End: 03-17-2024 Alcoholic beverage intake Current drinker of alcohol (finding) [facility] Adult Depression Screening Assessment 0 [facility] Start: 01-04-2024 Alcohol Comment maybe twice a year [facility] Start: 08-24-2024 Sex Female (finding) [facility] NEGATED: Highlighted row [facility] [address] [place] Work Phone: NEGATED: Highlighted row [facility] Medical Equipment Procedure Code Equipment Code Equipment Original Text Equipment Identifier Dates Total cholecystectomy with exploration of common bile duct CLIP,HEMOLOCK [employer] FDA Start: 03-02-2023 Total cholecystectomy with exploration of common bile duct CLIP,[employer] FDA Start: 03-02-2023 Total cholecystectomy with exploration of common bile duct CLIP,HEMDONALD ABERNATHY WECK FDA Start: 03-02-2023 Total cholecystectomy with exploration [...] cholecystectomy with exploration of common bile duct CLIP,[employer] FDA Start: 03-02-2023 Total cholecystectomy with exploration of common bile duct CLIP,[employer] FDA Start: 03-02-2023 Goals Date Patient Goal Desired Activity /State Functional Status Date Assessment Result Facility NEGATED: Highlighted row Functional performance Functional status health issues are not documented [facility] Work Phone: Mental Status Date Assessment Result Facility 03-02-2023 Cognitive function Touch/Shaking [facility] Work Phone: 03-02-2023 Cognitive function Patient Orien tation Person;Place;Time [facility] Work Phone: NEGATED: Highlighted row Cognitive function [Interpretation] Cognitive status health issues are not documented [facility] Work Phone: Clinical Notes 01-20-2022 to 11-15-2024 Note Date & Type Note Facility 11-15-2024 Progress note [facility] 11-15-2024 Progress note Note Date/Time November 15, 2024 2:51pm [facility] [address], [address] [place] [address] OFFICE VISIT Date of Service: 11/15/24 MR#: [id number] Acct: [id number] Name: CLAUDIA FARFAN MARLENE Rep #: [id number] : 1995 Provider: Dr. Maribel Villa DO Age/Sex: 29/F [place] [facility] [place] Status: Signed Intake Vital Signs 10/02/24 09:03 11/09/24 14:36 11/15/24 14:10 11/15/24 14:10 Height 5 ft 3 in 5 ft 3 in 5 ft 3 in 5 ft 3 in Weight: 235 lb 2 oz 236 lb 4 oz BMI 41.6 41.8 BP 124/77 H 129/86 H Intake Visit Reasons: 38wk ob/nst [employer] Required: No Is patient in pain?: No Allergies No Known Allergies Allergy (Verified 11/15/24 14:09) Medications ?Medication ?Instructions ?Recorded ?Confirmed ?Type folic acid 800 mcg tablet 0.8 mg PO DAILY 10/05/2207/11 History ascorbic acid (vitamin C) 500 mg 500 mg PO DAILY 02/2311/15/24 History tablet (C-500) magnesium 200 mg tablet 200 mg PO DAILY 02/23/2307/11 History omega-3 fatty acids 500 mg PO DAILY 02/23/2307/11 History PNV 153-FA 400 mcg-om3 35 mg-dha tab PO DAILY 04/18/24 11/15/24 History 25 mg-epa 5 mg-fish oil chew tablet cholecalciferol (vitamin D3) 25 4,000 unit PO DAILY 11/15/24 History mcg (1,000 unit) capsule ondansetron 4 mg disintegrating 4 mg PO Q8H PRN nausea and 07/03/24 11/15/24 Rx tablet vomiting #30 tabs Last Menstrual [...] 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 NIPT HPI 38wk ob/nst Details: CLAUDIA FARFAN is a 29 year old who presents for routine OB visit. OB Visit THOMAS Calculator Estimated Delivery Date Method Current WG Current Estimate 11/29/24 LMP (Certain) 38w 0d Other Estimates 11/29/24 Ultrasound #1 38w 0d Expected Delivery Route/Plan Labor Preferences- CB/BF [...] Date -?-?-?-?-?-?-?-?-?-?-?-?- EGA Weight BP Urine Prot -?--?-?-?-?-?-?-?-?-?-?-?- Glucose FHR FuHt Pres Dilation -?-?-?-?-?-?-?--?-?-?-?-?- Effaced St Visit Note 04/24/24 -?-?-?-?-?-?-?-?-?-?-?-?- 8w 5d 217 lb (+0 oz) 119/74 -?-?-?-?-?-?-?-?-?-?-?-?- 195 -?-?-?-?-?-?-?-?-?-?-?-?- JV- CRL matches LMP. Declines nipt. zoan sent for morning sickness. RTo in 4 [...] oz) 122/75 Negative -?-?-?-?-?-?-?-?-?-?-?-?- Negative 145 25 -?-?-?-?-?-?-?--?-?-?-?-?- SM- no vb lof go od fm [...] lb) 119/78 Negative -?-?-?-?-?-?-?-?-?-?-?-?- Negative 150 35 -?-?-?-?-?-?-?-?-?-?-?-?- KW- no vb.lof.ct x. good fm. feels that baby is dropping. 11/01/24 -?-?-?-?-?-?-?-?-?-?-?-?- 36w 0d 233 lb 6 oz (+16 lb 6 oz) 135/80 Negative -?-?-?-?-?-?-?-?-?-?-?-?- Negative 130 36 Cephalic 0 -?-?-?-?-?-?-?-?-?-?-?-?- SM- no vb lof go od fm no regular ctx gbs done 11/09/24 -?-?-?-?-?-?-?-?-?-?-?-?- 37w 1d 235 lb 2 oz (+18 lb 2 oz) 124/77 Negative -?-?-?-?-?-?-?-?-?-?-?-?- Negative 140 37 Cephalic -?-?-?-?-?-?-?-?-?-?-?-?- SM- no vb lof go od fm no regularc tx 11/15/24 -?-?-?-?-?-?-?-?-?-?-?-?- 38w 0d 236 lb 4 oz (+19 lb 4 oz) 129/86 -?-?-?-?-?-?-?-?-?-?-?-?- 140 38 Cephalic 0 -?-?-?-?-?-?-?-?-?-?-?-?- JV- no lof, vagi nal bleeding, or dec fm. reactive NST. Notes Visit Date: 11/01/24 Last Updated by: Penelope Yang MD - ACOG First Trimester First Trimester: Desire for [...] Signs, Cervical Ripening/Labor Induction Counseling, Postterm Counseling, Feeding No , Education, Family Medical Leave [...] normal to inspection Palpation: soft and nontender Office Procedures Non-stress Test Non-Stress Test Indications for Monitoring: Yes Morbid obesity Heart Rate Baseline: 130 Heart Rate Variability: moderate Movement: Present Heart Rate Accelerations: Present Decelerations: Absent Contractions: Absent Impression: Yes Reactive Non-Stress Test Coding Level of Care Code Off vis,est,level 3 Diagnoses Obesity affecting in third trimester, unspecified obesity type O99.213 Obesity type affecting : unspecified obesity Trimester: third trimester Supervision of high risk in third trimester O09.93 Trimester: third trimester 38 weeks gestation of Z3A.38 Weeks of gestation: 38 weeks Anxiety F41.9 Heart murmur R01.1 CPT Codes Non-Stress Test (12664) Assessment and Plan Assessment and Plan (1) [...] high risk , unspecified, third trimester Comment: [id number], THOMAS 11/29/24, boy [employer] PC Singh, BF Pernell (3) : Status: Acute Qualifiers: Weeks of gestation: 38 weeks Qualified Code(s): Z3A.38 - 38 weeks gestation of Comment: GBS Negative, declined NIPT & Carrier testing. nl anatomy. (4) Anxiety: Status: Acute Comment: stable. BF new seizure activity in August. started fluoxetine 5/19 (5) Heart murmur: Status: Acute Orders: Orders POC Urinalysis 2 Dip (Clinic) Today OB NST Today O99.213 - Obesity complicating , third trimester 11/15/24 1451 <Electronically signed by Evelyn Adan DO> Date _ Evelyn Villa DO Cosign Signature: Date (if applicable) CC: ~ [facility] Work Phone: 1(927) 154-301206-26-2025 Progress [facility] [address], [address] [place] [address] OFFICE VISIT Date of Service: 11/09/24 MR#: [id number] Acct: [id number] Name: CLAUDIA FARFAN MARLENE Rep #: [id number] : 1995 Provider: Dr. Andrea Yang MD Age/Sex: 29/F [place] [facility] [place] Status: Signed Intake Vital Signs 09/20/24 09:57 11/02/24 02:22 11/09/24 14:36 Height 5 ft 3 in 5 ft 3 in 5 ft 3 in Weight: 235 lb 2 oz BMI 41.6 BP 124/77 H Intake Visit Reasons: 37wk ob/nst [employer] Required: No Is patient in pain?: No Allergies No Known Allergies Allergy (Verified 11/09/24 14:45) Medications ?Medication ?Instructions ?Recorded ?Confirmed ?Type folic acid 800 mcg tablet 0.8 mg PO DAILY 10/05/22 History ascorbic acid (vitamin C) 500 mg 500 mg PO DAILY 02/2311/09/24 History tablet (C-500) magnesium 200 mg tablet 200 mg PO DAILY 02/23/23 History omega-3 fatty acids 500 mg PO DAILY 02/23/23 History PNV 153-FA 400 mcg-om3 35 mg-dha tab PO DAILY 04/18/24 11/09/24 History 25 mg-epa 5 mg-fish oil chew tablet cholecalciferol (vitamin D3) 25 4,000 unit PO DAILY 11/09/24 History mcg (1,000 unit) capsule ondansetron 4 mg disintegrating 4 mg PO Q8H PRN nausea and 07/03/24 11/09/24 Rx tablet vomiting #30 tabs Last Menstrual [...] 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 Date Name GA/Weeks Outcome Route Bth Weight Infant Gen [facility] Singh 39 live - full term 7# 3oz Male [facility] Delivery Date: 08/16/22 Last Updated by: Jovana Jon IOL abnl. NIPT HPI 37wk ob/nst Details: CLAUDIA FARFAN is a 29 year old who presents for routine OB visit. OB Visit THOMAS Calculator Estimated Delivery Date Method Current WG Current Estimate 11/29/24 LMP (Certain) 37w 1d Other Estimates 11/29/24 Ultrasound #1 37w 1d Expected Delivery Route/Plan Labor Preferences- CB/BF classes: [...] current plan of care details and appropriate ordersplaced. Relevant counseling for the gestational age provided. [...] oz (-1 lb 14 oz) 119/76 Negative -?-?-?-?-?-?--?-?-?-?-?-?- Negative 165 -?-?-?-?-?-?-?-?-?-?-?-?- KW- no vb/crampi ng. possible flutters. nausea at night but doing well. anatomy US scheduled. 07/28/24 -?-?-?-?-?-?-?-?-?-?-?-?- 22w 2d 222 lb (+5 lb) 110/72 Negative -?-?-?-?-?-?-?-?-?-?-?-?- Negative 155 22 -?-?-?-?-?-?--?-?-?-?-?-?- LC- no vb/crampi ng. feeling movement. has obtained follow up scans. 08/21/24 -?-?-?-?-?-?-?-?-?-?-?-?- 25w 5d 223 lb 8 oz (+6 lb 8 oz) 122/75 Negative -?-?-?-?-?-?-?-?-?-?-?-?- Negative 145 25 -?-?-?-?-?-?-?-?-?-?-?-?- SM- no vb lof go od fm no regular ctx 09/20/24 -?-?-?-?-?-?-?-?-?-?-?-?- 30w 0d 225 lb (+8 lb) 108/66 Negative -?-?-?-?-?-?-?-?-?-?-?-?- Negative 143 30 -?-?-?-?-?-?-?-?-?--?-?-?- MH-No VB, LOF. S ome irreg BH. [...] lb) 119/78 Negative -?-?-?-?-?-?-?-?-?-?-?-?- Negative 150 35 -?-?-?-?-?-?-?-?-?-?-?-?- KW- no vb.lof.ct x. good fm. feels that baby is dropping. 11/01/24 -?-?-?-?-?-?-?-?-?-?-?-?- 36w 0d 233 lb 6 oz (+16 lb 6 oz) 135/80 Negative -?-?-?-?-?-?-?-?-?-?-?-?- Negative 130 36 Cephalic 0 -?-?-?-?-?-?-?-?-?-?-?-?- SM- no vb lof go od fm no regular ctx gbs done 11/09/24 -?-?-?-?-?-?-?-?-?-?-?-?- 37w 1d 235 lb 2 oz (+18 lb 2 oz) 124/77 -?-?-?-?-?-?-?-?-?-?-?-?- 140 37 Cephalic -?-?-?-?-?-?-?-?-?-?-?-?- SM- no vb lof go od fm no regularc tx Notes Visit Date: 11/01/24 Last Updated by: Penelope Yang MD - ACOG First Trimester First Trimester: Desire for , Alcohol, Tobacco Cessation, Illicit/Recreational Drug/Substance Use, Intimate Partner Violence, Barriers to care, Unstable Housing, Communication Barriers, Environmental/Work Hazards, Anticipated Course of Care, Toxoplasmosis Precations, Use of Any med ications, Sexual activity, Exercise, Dental Care, Sauna/Hot tub [...] Signs, Cervical Ripening/Labor Induction Counseling, Postterm Counseling, Feeding No , Education, Family Medical Leave [...] normal to inspection Palpation: soft and nontender Office Procedures Non-stress Test Non-Stress Test Indications for Monitoring: Yes Morbid obesity Heart Rate Baseline: 140 Movement: Present Heart Rate Accelerations: Present Decelerations: Absent Contractions: Absent Impression: Yes Reactive Non-Stress Test Category 1 Coding Level of Care Code Off vis,est,level 3 Diagnoses Obesity affecting in third trimester, unspecified obesity type O99.213 Obesity type affecting : unspecified obesity Trimester: third trimester Supervision of high risk in third trimester O09.93 Trimester: third trimester 37 weeks gestation of Z3A.37 Weeks of gestation: 37 weeks Anxiety F41.9 Heart murmur R01.1 CPT Codes Non-Stress Test (51388) Assessment and Plan Assessment and Plan (1) Obesity affecting : Status: Acute Qualifiers: Obesity type affecting : unspecified obesity Trimester: third trimester Qualified Code(s):O99.213 - Obesity complicating , third trimester Comment: bmi 35 recommend weekly nsts after 36 growth US q 4 weeks. (2) Supervision of high-risk : Status: Acute Qualifiers: Trimester: third trimester Qualified Code(s): O09.93 - Supervision of high risk , unspecified, third trimester Comment: [id number], THOMAS 11/29/24, boy [employer] Singh, BF Pernell (3) : Status: Acute Qualifiers: Weeks of gestation: 37 weeks Qualified Code(s): Z3A.37 - 37 weeks gestation of Comment: GBS Negative, declined NIPT & Carrier testing. nl anatomy. (4) Anxiety: Status: Acute Comment: stable. BF new seizure activity in August. started fluoxetine 10/02 (5) Heart murmur: Status: Acute Orders: Orders POC Urinalysis 2 Dip (Clinic) Today OB NST Today O99.213 - Obesity complicating , third trimester 11/09/24 1526 dillon KHAN> Date _ Penelope Pérezign Signature: Date (if applicable) CC: ~ [facility]06-26-2025 Progress note Author Penelope Yang [facility] Note Date/Time November 09, 2024 3:26 pm [facility] [address] [place] [id number] OFFICE VISIT Date of Service: 11/09/24 MR#: [id number] Acct: [id number] Name: CLAUDIA FARFAN Rep #: [id number] : 1995 Provider: Dr. Andrea Yang MD Age/Sex: 29/F [place] [facility] [place] Status: Signed Intake Vital Signs 09/20/24 09:57 11/02/24 02:22 11/09/24 14:36 Height 5 ft 3 in 5 ft 3 in 5 ft 3 in Weight: 235 lb 2 oz BMI 41.6 BP 124/77 H Intake Visit Reasons: 37wk ob/nst [employer] Required: No Is patient in pain?: No Allergies No Known Allergies Allergy (Verified 11/09/24 14:45) Medications ?Medication ?Instructions ?Recorded ?Confirmed ?Type folic acid 800 mcg tablet 0.8 mg PO DAILY 10/05/22 History ascorbic acid (vitamin C) 500 mg 500 mg PO DAILY 02/2311/09/24 History tablet (C-500) magnesium 200 mg tablet 200 mg PO DAILY 02/23/23 History omega-3 fatty acids 500 mg PO DAILY 02/23/23 History PNV 153-FA 400 mcg-om3 35 mg-dha tab PO DAILY 04/18/24 11/09/24 History 25 mg-epa 5 mg-fish oil chew tablet cholecalciferol (vitamin D3) 25 4,000 unit PO DAILY 11/09/24 History mcg (1,000 unit) capsule ondansetron 4 mg disintegrating 4 mg PO Q8H PRN nausea and 07/03/24 11/09/24 Rx tablet vomiting #30 tabs Last Menstrual [...] 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 NIPT HPI 37wk ob/nst Details: CLAUDIA FARFAN is a 29 year old who presents for routine OB visit. OB Visit THOMAS Calculator Estimated Delivery Date Method Current WG Current Estimate 11/29/24 LMP (Certain) 37w 1d Other Estimates 11/29/24 Ultrasound #1 37w 1d Expected Delivery Route/Plan Labor Preferences- CB/BF classes: [...] oz (-1 lb 14 oz) 119/76 Negative -?-?-?-?-?-?--?-?-?-?-?-?- Negative 165 -?-?-?-?-?-?-?-?-?-?-?-?- KW- no vb/crampi ng. possible flutters. nausea at night but doing well. anatomy US scheduled. 07/28/24 -?-?-?-?-?-?-?-?-?-?-?-?- 22w 2d 222 lb (+5 lb) 110/72 Negative -?-?-?-?-?-?-?-?-?-?-?-?- Negative 155 22 -?-?-?-?-?-?--?-?-?-?-?-?- LC- no vb/crampi ng. feeling movement. has obtained follow up scans. 08/21/24 -?-?-?-?-?-?-?-?-?-?-?-?- 25w 5d 223 lb 8 oz (+6 lb 8 oz) 122/75 Negative -?-?-?-?-?-?-?-?-?-?-?-?- Negative 145 25 -?-?-?-?-?-?-?-?-?-?-?-?- SM- no vb lof go od fm no regular ctx 09/20/24 -?-?-?-?-?-?-?-?-?-?-?-?- 30w 0d 225 lb (+8 lb) 108/66 Negative -?-?-?-?-?-?-?-?-?-?-?-?- Negative 143 30 -?-?-?-?-?-?-?-?-?--?-?-?- -No VB, LOF. S ome irreg BH. [...] lb) 119/78 Negative -?-?-?-?-?-?-?-?-?-?-?-?- Negative 150 35 -?-?-?-?-?-?-?-?-?-?-?-?- KW- no vb.lof.ct x. good fm. feels that baby is dropping. 11/01/24 -?-?-?-?-?-?-?-?-?-?-?-?- 36w 0d 233 lb 6 oz (+16 lb 6 oz) 135/80 Negative -?-?-?-?-?-?-?-?-?-?-?-?- Negative 130 36 Cephalic 0 -?-?-?-?-?-?-?-?-?-?-?-?- SM- no vb lof go od fm no regular ctx gbs done 11/09/24 -?-?-?-?-?-?-?-?-?-?-?-?- 37w 1d 235 lb 2 oz (+18 lb 2 oz) 124/77 -?-?-?-?-?-?-?-?-?-?-?-?- 140 37 Cephalic -?-?-?-?-?-?-?-?-?-?-?-?- SM- no vb lof go od fm no regularc tx Notes Visit Date: 11/01/24 Last Updated by: Penelope Yang MD - ACOG First Trimester First Trimester: Desire for [...] Signs, Cervical Ripening/Labor Induction Counseling, Postterm Counseling, Feeding No , Education, Family Medical Leave [...] normal to inspection Palpation: soft and nontender Office Procedures Non-stress Test Non-Stress Test Indications for Monitoring: Yes Morbid obesity Heart Rate Baseline: 140 Movement: Present Heart Rate Accelerations: Present Decelerations: Absent Contractions: Absent Impression: Yes Reactive Non-Stress Test Category 1 Coding Level of Care Code Off vis,est,level 3 Diagnoses Obesity affecting in third trimester, unspecified obesity type O99.213 Obesity type affecting : unspecified obesity Trimester: third trimester Supervision of high risk in third trimester O09.93 Trimester: third trimester 37 weeks gestation of Z3A.37 Weeks of gestation: 37 weeks Anxiety F41.9 Heart murmur R01.1 CPT Codes Non-Stress Test (28118) Assessment and Plan Assessment and Plan (1) [...] high risk , unspecified, third trimester Comment: [id number], THOMAS 11/29/24, boy [employer] Singh BF Pernell (3) : Status: Acute Qualifiers: Weeks of gestation: 37 weeks Qualified Code(s): Z3A.37 - 37 weeks gestation of Comment: GBS Negative, declined NIPT & Carrier testing. nl anatomy. (4) Anxiety: Status: Acute Comment: stable. BF new seizure activity in August. started fluoxetine 10/02 (5) Heart murmur: Status: Acute Orders: Orders POC Urinalysis 2 Dip (Clinic) Today OB NST Today O99.213 - Obesity complicating , third trimester 11/09/24 1526 <Electronically signed by Penelope carranza MD> Date _ Penelope Yang MD Cosigner Signature: Date (if applicable) CC: ~ [facility] Work Phone: 1(136) 614-280806-23-2025 Radiology Diagnostic study note [facility] Imaging Services [address] [place], [place] [address] OB Limited With Biometrics MR#: [id number] Acct: [id number] Name: CLAUDIA FARFAN Rep #: [id number] : 1995 F 28 From: To Lowry MD PCP: Care Physician,No Primary Status: REG CLI Study:OB Limited With Biometrics Date of Exam : 11/06/24 Exam# [id number] Ordering Dr: Evelyn Stern DO PROCEDURE: OB LIMITED WITH BIOMETRICS 11/06/2024 REASON FOR EXAM: REPEAT Q4W TECHNIQUE: OB LIMITED WITH BIOMETRICS COMPARISON: Prior study dated October 05, 2024. FINDINGS Number: 1 Position: Vertex Placental Position: Posterior and not low-lying Placental Abnormalities: No evidence of previa. DIMENSIONS: Biparietal Diameter: 8.57 cm: 34 weeks and 4 days: 10 percentile/ Head Circumference: 30.86 cm: 34 weeks and 3 days: 1 percentile/ Abdominal Circumference: 30.84 cm: 34 weeks and 6 days: 13 percentile/ Femur Length: 6.92 cm: 35 weeks and 3 days: 19 percentile/ ESTIMATED WEIGHT: 2586 g plus/-388 g ESTIMATED WEIGHT PERCENTILE (24+ weeks): 17 ESTIMATED GESTATIONAL AGE: Baseline: 36 weeks and 5 days By Ultrasound: 36 weeks and 6 days ESTIMATED DATE OF DELIVERY: Baseline: November 30, 2019 By Ultrasound: November 28, 2024 BIOPHYSICAL ASSESSMENT: Amniotic Fluid Volume: 4.48 cm Amniotic Fluid Index: 9.85 (8-24 cm normal range) Cardiac Motion: 152 beats per minute (average) Trunk and Limb Motion: Present. US/OB Limited With Biometrics IMPRESSION: Single live intrauterine gestation with a mean gestational age of 36 weeks and 6days. The measurements obtained today fall within lower limits of normal. Reading Location: [id number] CC: Dr. Evelyn Villa, DO; No Primary Care Physician ~ Radiotelegrapher: Signed [facility]06-06-2025 [facility] [address], [address] [place] [address] OFFICE VISIT Date of Service: 10/20/24 MR#: [id number] Acct: [id number] Name: CLAUDIA FARFAN MARLENE Rep #: [id number] : 1995 Provider: DEEPAK Abreu Age/Sex: 28/F [place] [facility] [place] Status: Signed Intake Vital Signs 08/21/24 08:34 10/02/24 09:03 10/20/24 08:58 10/20/24 09:02 Height 5 ft 3 in 5 ft 3 in 5 ft 3 in 5 ft 3 in Weight: 231 lb BMI 40.9 BP 119/78 Intake Visit Reasons: 34wk ob Chief Complaint: 34 Week 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 Relevant counseling for the gestational age provided. [...] of Care, Toxoplasmosis Precations, Use of Any med ications, Sexual activity, Exercise, Dental Care, Sauna/Hot tub [...] Signs, Cervical Ripening/Labor Induction Counseling, Postterm Counseling, Feeding No , [place] Education, Family Medical Leave or Disability Forms, [...] high risk , unspecified, third trimester Comment: [id number], THOMAS 11/29/24, boy [employer] Singh, BF Pernell (3) Obesity affecting : Status: Acute Qualifiers: Obesity type affecting : unspecified obesity Trimester: third trimester Qualified Code(s):O99.213 - Obesity complicating , third trimester Comment: [...] information and see below for orders placed atthis visit. GA appropriate handout given. 10/20/24 0916 s CNM> Date _ Cristy Abreu CNM Cosigner Signature: Date (if applicable) CC: ~ [facility]05-22-2025 Radiology Diagnostic study note [facility] Imaging Services [address] [place], [place] [address] OB Limited With Biometrics MR#: [id number] Acct: [id number] Name: CLAUDIA FARFAN Rep #: [id number] : 1995 F 28 From: Roberto Mansfield MD PCP: Care Physician,No Primary Status: REG CLI Study:OB Limited With Biometrics Date of Exam : 10/04/24 Exam# [id number] Ordering Dr: Evelyn Stern DO PROCEDURE: OB [...] (7.00-86.00, 32 weeks 0 day) Reading Location: [id number] CC: Dr. Evelyn Villa DO; No Primary Care Physician ~ Radiotelegrapher: Signed [facility]05-19-2025 [facility] [address], [address] [place] [address] OFFICE VISIT Date of Service: 10/02/24 MR#: [id number] Acct: [id number] Name: CLAUDIA FARFAN Rep #: [id number] : 1995 Provider: Dr. Maribel Villa DO Age/Sex: 28/F Location: 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 Relevant counseling for the gestational age provided. [...] oz) 116/72 Negative -?-?-?-?-?-?-?-?-?-?-?-?- Negative 171 -?-?-?-?-?-?-?-?--?-?-?-?- MH-No VB. Nausea controlled with zofran. Br [...] 122/75 Negative -?-?-?-?-?-?-?-?-?-?-?-?- Negative 145 25 -?-?-?-?-?-?-?-?-?-?-?-?- SM- no vb lof go od [...] of Care, Toxoplasmosis Precations, Use of Any med ications, Sexual activity, Exercise, Dental Care, Sauna/Hot tub [...] : unspecified obesity Trimester: third trimester Qualified Code(s):O99.213 - Obesity complicating , third trimester Comment: bmi 35 recommend weekly nsts after 36 growth US q 4 weeks. (2) Supervision of high-risk : Status: Acute Qualifiers: Trimester: third trimester Qualified Code(s): O09.93 - Supervision of high risk , unspecified, third trimester Comment: [id number], THOMAS 11/29/24, boy [employer] Singh, BF Pernell (3) : Status: Acute Qualifiers: Weeks of gestation: 31 weeks Qualified Code(s): Z3A.31 - 31 weeks gestation of Comment: declined NIPT & Carrier testing. nl anatomy. (4) Anxiety: Status: Acute Comment: stable. BF new seizure activity in August. started fluoxetine 10/02 (5) Heart murmur: Status: Acute Orders: Orders POC Urinalysis 2 Dip (Clinic) Today 10/02/24927 e Torey DO> Date _ Evelyn Villa DO Cosigneric Signature: Date (if applicable) CC: ~ [facility]03-14-2025 Evaluation note* Diagnosis Onset Date Resolution Status Admit Date Anxiety acute July 28 8:33am Heart murmur [...] October 20 8:54am Large for gestational age fe tus affecting management of mother acute J une 2024 8:54am Obesity affecting acute October 20, 2024 8:54am acute October 20, 2024 8:54am Supervision of high-risk acute October 20, 2024 8 :54am Anxiety acute November 01 10:23am Heart murmur acute November 01, 2 025 10:23am Large for gestational age fe tus affecting management of mother acute J une 2024 10:23am Obesity affecting acute November 01, 2024 10:23am acute November 01 10:23am Supervision of high-risk acute November 01, 2024 10:23am [facility] Work Phone: 1(996) 682-299103-14-2025 Evaluation note* Diagnosis Onset Date Resolution Status Admit Date Anxiety acute July 28 8:33am Heart murmur [...] 8:54am Heart murmur acute October 20 8:54am Obesity affecting acute October 20, 2024 8:54am acute October 20, 2024 8:54am Supervision of high-risk acute October 20, 2024 8 :54am Large for gestational age fetus affecting management of mother resolved October 20, 2024 8 :54am Anxiety acute November 01 10:23am Heart murmur acute November 01, 025 10:23am Obesity affecting acute November 01, 2024 10:23am acute November 01 10:23am Supervision of high-risk acute November 01, 2024 10:23am Large for gestational age fetus affecting management of mother resolved November 01, 2024 10:23am Anxiety acute November 09 2:25pm Heart murmur acute November 09, 025 2:25pm Obesity affecting acute November 09, 2024 2:25pm acute November 09 2:25pm Supervision of high-risk acute November 09, 2024 2:25pm [facility] Work Phone: 1(323) 709-985803-14-2025 Evaluation note* Diagnosis Onset Date Resolution Status Admit Date Anxiety acute July 28 8:33am Heart murmur [...] 8:54am Heart murmur acute October 20 8:54am Obesity affecting acute October 20, 2024 8:54am acute October 20, 2024 8:54am Supervision of high-risk acute October 20, 2024 8 :54am Large for gestational age fetus affecting management of mother resolved October 20, 2024 8 :54am Anxiety acute November 01 10:23am Heart murmur acute November 01, 025 10:23am Obesity affecting acute November 01, 2024 10:23am acute November 01 10:23am Supervision of high-risk acute November 01, 2024 10:23am Large for gestational age fetus affecting management of mother resolved November 01, 2024 10:23am Anxiety acute November 09 2:25pm Heart murmur acute November 09, 2 025 2:25pm Obesity affecting acute November 09, 2024 2:25pm acute November 09 2:25pm Supervision of high-risk acute November 09, 2024 2:25pm Anxiety acute November 15, 2024 2:09pm Heart murmur acute November 15 2:09pm Obesity affecting acute November 15, 2024 2:09pm acute November 15, 2024 2:09pm Supervision of high-risk acute November 15, 2024 2 :09pm [facility] Work Phone: 1(801) 710-278403-14-2025 Evaluation note* Diagnosis Onset Date Resolution Status Admit Date Anxiety acute July 28 8:33am Heart murmur acute July 28, 2024 8:33am acute July 28 8:33am Supervision of high-risk acute July 28, 2024 8:33am Anxiety acute August 21 8:28am Heart murmur acute August 21, 8:28am Obesity affecting acute August 21, 2024 [...] 8:54am Heart murmur acute October 20 8:54am Obesity affecting acute October 20, 2024 8:54am acute October 20, 2024 8:54am Supervision of high-risk acute October 20, 2024 8 :54am Large for gestational age fetus affecting management of mother resolved October 20, 2024 8 :54am Anxiety acute November 01 10:23am Heart murmur acute November 01, 2 025 10:23am Obesity affecting acute November 01, 2024 10:23am acute November 01 10:23am Supervision of high-risk acute November 01, 2024 10:23am Large for gestational age fetus affecting management of mother resolved November 01, 2024 10:23am Anxiety acute November 09 2:25pm Heart murmur acute November 09 025 2:25pm Obesity affecting acute November 09, 2024 2:25pm acute November 09 2:25pm Supervision of high-risk acute November 09, 2024 2:25pm Anxiety acute November 15, 2024 2:09pm Heart murmur acute November 15 2:09pm Obesity affecting acute November 15, 2024 2:09pm acute November 15, 2024 2:09pm Supervision of high-risk acute November 15, 2024 2 :09pm Anxiety acute November 20, 2024 1:55pm Heart murmur acute November 20 1:55pm Obesity affecting acute November 20, 2024 1:55pm acute November 20, 2024 1:55pm Supervision of high-risk acute November 20, 2024 1 :55pm [facility] Work Phone: 1(205) 530-428202-10-2025 Evaluation note* Diagnosis Onset Date Resolution Status Admit Date Anxiety acute June 26, 2024 9:29am Heart murmur acute June 9:29am acute June 26, 2024 9:29am Supervision of high-risk acute June 26 025 9:29am Anxiety acute July 28 8:33am Heart murmur acute July 28, 2024 8:33am acute July 28 8:33am Supervision of high-risk acute July 28, 2024 8:33am Anxiety acute August 21 8:28am Heart murmur acute August 21 025 8:28am Obesity affecting acute August 21, [...] high-risk acute October 02, 2024 8 :55am [facility] Work Phone: 1(188) 174-144402-10-2025 Evaluation note* Diagnosis Onset Date Resolution Status [...] high-risk acute October 20, 2024 8 :54am [facility] Work Phone: 1(619) 250-270202-01-2025 Instructions* Patient Instructions* Julia Browne APRN.SECURITY ASSOCIATE - 06/17/2024 12:03 PM EST Images from [...] while you are sick so you don't crab picker a different virus, or infect others. [...] per day. The below information is from prescribersletter.Fit Steps: Antibiotics Will rarely help an upper respiratory [...] outside corner of the right eye. 5. Irrigon one spray only. Take a sniff as [...] available over the counter (NasalCrom Allergy Nasal Irrigon). ?r?moly? sodium administered intranasally and/or by inhalation [...] evidence for or against the effectiveness of dbof-mgm-zsusslt medications (including g??if?n??i?, mucolytics, and combination medications) [...] Avoid first trimester; caution with BP in 3rd semester; NO if HTN history Loratadine (Claritin) Zinc lozenges. Chloraseptic spray Mucinex avoid multi-symptom forms of this. ATROVENT NASAL SPRAY FLONASE NASAL SPRAY CONSTIPATION Methylcellulose fiber (Citrucel) all occasional use ONLY Docusate (Colace) Psyllium (Fiberall, Metamucil) Polycarbophil (FiberCon) polyethylene glycol ( Miralax) COUGH Robitussin Mucinex cough drops DIARRHEA Loperamide (Imodium) after 1st Trimester for 24 hours only documented in this encounterUniversity Hospitals Cleveland Medical Center02-01-2025 NoteHNO ID: [id number] Author: JULIA BROWNE APRN.SECURITY ASSOCIATE Service: ? Author Type: Nurse Practitioner Type: [...] Visit Note Patient seen on Virtual Platform, [facility] Location of patient: [place] History of Present Illness Claudia Farfan is [...] Encouraged good hydration, handwas (more content not included)...[facility]02-01-2025 History of Present illness Narrative* Julia Browne APRN.[facility] - 06/17/2024 11:51 AM EST Informed verbal [...] Visit Note Patient seen on Virtual Platform, [facility] Location of patient: [place] History of Present Illness Claudia Farfan is [...] UP WITH YOUR PCP Julia Browne, MSN, PET ADOPTION COUNSELOR-SECURITY ASSOCIATE, CUNP [facility] Dora documented in this encounterUniversity Hospitals Cleveland Medical Center01-08-2025 Evaluation note* Diagnosis Onset Date Resolution Status Admit Date Anxiety acute May 24 8:26am Heart murmur acute May 24, 2024 8:26am acute May 24 8:26am Supervision of high-risk acute May 24 [...] of high-risk acute August 21, 2024 8:28am [facility] Work Phone: 1(294) 384-595811-01-2024 History of Present illness Narrative* Hector Winchester, PAPA.SECURITY ASSOCIATE - 03/17/2024 9:05 AM EDT Images from [...] SCALP SOLUTION FU 3 months Hector Winchester APRN.SECURITY ASSOCIATE documented in this encounterUniversity Hospitals Cleveland Medical Center11-01-2024 NoteHNO ID: [id number] Author: HECTOR WINCHESTER APRN.ALLIE Service: ? Author Type: Nurse Practitioner Type: Progress Notes Filed: 03/26/2024 14:27 Note Text: Raul Farfan is a 28 [...] depression, (10-14) moderate depression, (more content not included)...[facility]10-02-2024 Telephone encounter Note* Telephone Encounter - Mitul Donohue MA - 02/16/2024 2:44 PM EDT Patient notified. Mitul Donohue MA [facility]10-02-2024 Telephone encounter Note* Telephone Encounter - Mitul Donohue MA - 02/16/2024 2:44 PM EDT ----- Message from Hector Winchester APRN.CNP sent at 02/16/2024 2:41 PM EDT ----- Please notify patient results are normal. Thank you. Hector Winchester APRN.SECURITY ASSOCIATE [facility]10-02-2024 Miscellaneous Notes* Telephone Encounter - Mitul Donohue MA - 02/16/2024 2:44 PM EDT Patient notified. Mitul Donohue MA * Telephone Encounter - Mitul Donohue MA - 02/16/2024 2:44 PM EDT ----- Message from Hector Winchester APRN.CNP sent at 02/16/2024 2:41 PM EDT ----- Please notify patient results are normal. Thank you. Hector Winchester APRN.SECURITY ASSOCIATE documented in this encounterUniversity Hospitals Cleveland Medical Center08-20-2024 NoteHNO ID: [id number] Author: HECTOR WINCHESTER APRN.CNP Service: ? 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 - [facility] Hx PCOS = diagnosed in [...] feels like it gives (more content not included)...[facility]08-20-2024 History of Present illness Narrative* Hector Winchester APRN.SECURITY ASSOCIATE - 01/04/2024 11:26 AM EDT Subjective Claudia [...] been good ever since PAST MEDICAL HISTORY 2007: Avulsion fracture of left hip (HCC) No [...] not frequent Last Pap - January 2022 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 [...] Musculoskeletal: Grossly normal; appropriate for age. Integumentary: [place], warm, dry, and intact. No rashes or [...] Mucinex, vaporizer, voice rest, and Saline Nasal Irrigon may be helpful. Reviewed red flags to monitor for, counseled on potential adverse reactions of treatments, expectations for improvement in sxs, and advised to follow-up with primary care provider in 3-5 days if symptoms persist, or sooner if worsening or if any additional concerns/red flags develop. Patient verbalized understanding and agreed with plan of care; questions were encouraged and answered. 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 Call [facility] ([phone]) or report to the closest Emergency Room. Call 911 if necessary. 03/12/23 1736 <Electronically signed by Jaylan Pedroza DO> Cosigner Signature (if applicable): CC: No Primary Care Physician ~ Signed [facility] Work Phone: [phone]) 165-500510-17-2023 Discharge summary Author Christal Mccall [facility] March 02, 2023 12:25pm Note Date/Time March 02, 2023 1 2:25pm [facility] Medical Records Department [address] [place] [address] Instructions for Home/Discharge Instructions 03/02/23 1225 MR#: [id number] Acct: [id number] Name: CLAUDIA FARFAN MARLENE Rep #:[id number] : 1995 27 From: Christal Mccall MD PCP: Care Physician,No Primary Status :REG [facility] Discharge Instructions Diet Discharge Diet: Light diet [...] 2 weeks; after 5 PM and on the call [phone] with any concerns. Test Results: Test results [...] CC: No Primary Care Physician ~ Signed [facility] Work Phone: 1(401) 800-682110-17-2023 History and physical note Author Christal Mccall [facility] March 02, 2023 10:33am Note Date/Time March 02, 2023 1 0:33am [facility] Medical Records Department [address] [place] [address] History & Physical Exam 03/02/23 1032 MR#: [id number] Acct: [id number] Name: CLAUDIA FARFAN Rep #:[id number] : 1995 27 From: Christal Mccall MD PCP: Care Physician,No Primary Status :[facility] Location: [place] [address] History and Physical Date of Admission: 03/02/23 Date of Service: 02/11/23 MR#: [id number] Acct: [id number] Name: CLAUDIA FARFAN Rep #: [id number] : 1995 Provider: Dr. 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 Christal Mccall M.D. Pager: [phone] [facility] [address] [place] [address], [facility], [address] [place] [address] Office: [phone] Coding Level of Care Code Off vis,est,level 3 Diagnoses Gallbladder sludge K82.8 Cholelithiasis K80.20 02/12/23 1156 <Electronically signed by Christal Mccall MD> Date Christal Mccall MD 03/02/23 103 <Electronically signed by Christal Mccall MD> Cosigner Signature (if applicable): CC: Dr. Christal Mccall MD; No Primary Care Physician~ Signed ADDENDUM by Dr. Christal Mccall MD on 03/02/23 at 1033 Addendum I have examined the patient and the H&P has been reviewed. There are no clinicalchanges since date of exam. 03/02/231032<Electronically signed by Christal Mccall MD> Cosigner Signature (if applicable): cc: Dr. Christal Mccall MD; No Primary Care Physician ~* Signed [facility] Work Phone: [phone]) 460-142710-17-2023 Procedure [facility] 08-18-2022 Progress note Author Gui Sloan [facility] August 18, 2022 7:54am Note Date/Time August 18, 2022 7:54 am [facility] Medical Records Department [address] [place] [address] Progress Note - OBGYN 08/18/22751 MR#: [id number] Acct: [id number] Name: CLAUDIA FARFAN Rep #:[id number] : 1995 From: Gui Sloan NP BULB PLANTER-C PCP: Care Physician,No Primary Status :ADM IN Location: [place] [address]-1 Subjective Subjective Patient doing well without complaints. [...] 0754 <Electronically signed by Gui Sloan NP BULB PLANTER-C> Cosigner Signature (if applicable): CC: ~ Signed [facility] Work Phone: [phone]) 792-239904-03-2023 Progress note Author Rina Mead [facility] August 17, 2022 8:34am Note Date/Time August 17, 2022 8:34 am [facility] Medical Records Department [address] [place] [address] Progress Note - OBGYN 08/17/22 0833 MR#: [id number] Acct: [id number] Name: CLAUDIA FARFAN Rep #:[id number] : 1995 From: Rina Mead CNArpan PCP: Care Physician,No Primary Status :ADM IN Location: [place] 558009-1 Subjective Subjective Patient doing well without complaints. [...] % (Auto) 70.3 H, Lymph % (Auto) 21.7,[place] % (Auto) 6.8, Eos % (Auto) 0.5, [...] 3. rh positive 4. rubella immune 5. infant in [place] care nursery, emotional support provided. 08/17/22 0834 <Electronically signed by Rina Mead CNM> Cosigner Signature (if applicable): CC: ~ Signed [facility] Work Phone: 1(426) 227-836404-03-[address] Yang [facility] August 16, 2022 10:35pm Note Date/Time August 16, 2022 10:3 5pm [facility] Medical Records Department [address] [place] [address] Instructions for Home/Discharge Instructions 08/16/225 MR#: [id number] Acct: [id number] Name: CLAUDIA FARFAN MARLENE Rep #:[id number] : 1995 From: Penelope boyd MD PCP: Care Physician,No [...] Primary Discharge Orders/Prescriptions Prescriptions: No Action PNV no.247-SV-[id number]-[id number] 400 mcg-35 mg- 25 mg-5 mg tablet,chewable 1 tab PO DAILY Referrals / Follow Up: Care Physician,No Primary [Primary Care Provider] - Disposition Disposition (needs filled in before D/C Order can be placed): Home, Self Care 08/16/222234<Electronically signed by Penelope Yang MD>Penelope Yang MD CC: No Primary Care Physician ~ Signed [facility] Work Phone: 1(133) 319-357604-02-2023 Procedure [facility] 08-16-2022 Progress note Author Cristy Abreu [facility] August 16, 2022 7:11pm Note Date/Time August 16, 2022 7:02 pm [facility] Medical Records Department [address] [place] [address] Progress Note 08/16/22 1856 MR#: [id number] Acct: [id number] Name: CLAUDIA FARFAN MARLENE Rep #:[id number] : 1995 26 From: Cristy Abreu CNM PCP: Care Physician,No Primary Status :ADM IN Location: SP453-7 Progress Note Patient comfortable with epidural current tracing: FHT: 135 Moderate variability reactive, occasional variable, category II tracing, overall reassuring [place]: Contractions q2-3 minutes, palpating moderate to strong. Pitocin at 6 mu SVE / reviewed tracing abnormalities since last note: Prolonged deceleration with multiple nursing interventions. Pitocin discontinued, position changed and O2 on. resolved with interventions. Papo Yang aware of FHT. A/P: Continue with position changes Pitocin restarted per protocol Anticipate Procedures Urinary/Genital 52xxx-59xxx: No Charge 08/16/22 191 <Electronically signed by Cristy Abreu CNM> Cristy Abreu CNM Cosigner Signature (if applicable): CC: ~ Signed [facility] Work Phone: 1(479) 680-208804-02-2023 Progress note Author Cristy Abreu [facility] August 16, 2022 2:20pm Note Date/Time August 16, 2022 2:20 pm [facility] Medical Records Department [address] [place] [address] Progress Note 08/16/22 1412 MR#: [id number] Acct: [id number] Name: CLAUDIA FARFAN Rep #:[id number] : 1995 26 From: Cristy Abreu CNM PCP: Care Physician,No Primary Status :ADM IN Location: [place] 558009-1 Progress Note Patient coping well with contractions. current tracing: FHT: 130 Moderate variability reactive no decelerations category I tracing [place]: Contractions every 1-4 minutes palpating moderate. 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 High fraction on NIPT-declines invasive testing. [facility] 04/0604/13/22 -?-?-?-?-?-?-?-?-?-?-?-?- 21w 3d 218 lb 138/76 Negative -?-?-?-?-?-?-?-?-?-?-?-?- Negative 140 21 -?-?-?-?-?-?-?-?-?-?-?-?- SM- no vb abe ng discussed nipt and US results, still declines invasive testing, plan repeat US due to marginal insertion of cord and limited heart views. 05/12/22 -?-?-?-?-?-?-?-?-?-?-?-?- 25w 4d 221 lb 6 oz 128/68 Nega tive -?-?-?-?-?-?-?-?-?-?-?-?- Negative 161 25 -?-?-?-?-?-?-?-?-?-?-?-?- MH-No VB, LOF. G ood FM. M US for growth next week. 05/27/22 -?--?-?-?-?-?-?-?-?-?-?-?- 27w 5d 220 lb 6 oz 110/74 -?-?-?-?-?-?-?-?-?-?-?-?- 151 29 -?-?-?-?-?-?-?-?-?-?-?-?- LC- no concerns. no vb/ctx/lof. good fm. LC- no concerns. no vb/ctx/l of. good fm.28 week labs normal. larc completed. 06/08/22 -?-?-?-?-?-?-?-?-?-?-?-?- 29w 3d 222 lb 116/70 Negative -?-?-?-?-?-?--?-?-?-?-?-?- Negative 150 30 -?-?-?-?-?-?-?-?-?-?-?-?- SM- no vb [...] 118/78 Nega tive -?-?-?-?-?-?-?-?-?-?-?-?- Negative 130 -?-?-?-?-?-?-?-?-?-?-?-?- -NST only reac tive 07/20/22 -?-?-?-?-?-?-?-?-?-?-?-?- 35w 3d 229 lb 113/72 Negative -?-?-?-?-?-?-?-?-?-?-?-?- Negative 130 -?-?-?-?-?-?-?-?-?-?-?-?- LC- reactive NST , no concerns. has appt with [facility] for growth scan end july. good fm, no ctx, lof/vb. 07/27/22 [...] Nega tive -?-?-?-?-?-?-?-?-?-?-?-?- Negative 136 37 -?-?-?-?-?-?-?-?-?-?-?-?- -No VB, LOF. g ood FM. Reactive NST. [...] review problem list I have reviewed the [facility] and made any clinically relevant updates. (2) [...] DEEPAK Abreu; No Primary Care Physician~ Signed [facility] Work Phone: 1(502) 300-328703-14-2023 Hospital Discharge instructions Additional Instructions Take antibiotic as ordered. 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 05/27/22 -?-?-?-?-?-?-?-?-?-?-?-?- [...] for suspected kidney stone with leukocytes. 07/24/22 8522 <Electronically signed by Rina Mead CNM> Cosigner Signature (if applicable): CC: DEEPAK Mead; No Primary Care Physician~ Signed [facility] Work Phone: [phone]) 906-661609-06-2022 NotePap Smear Specimen AdequacySeptember 2021 4:49pmComment.Satisfactory for evaluation. Endocervical and/or squamous metaplasticcells (endocervical component)are present.[facility][id number] Work Phone: Comment on above:Satisfactory for evaluation. Endocervical and/or squamous metaplasticcells (endocervical component)are present.01-20-2022 NotePap Smear QC ReviewSeptember 2021 4:49pmComment. Marnie Cody, Supervisory Mechanical System Technician (ASCP)[facility] INTER[facility]ACED A#[id number] [facility] Work Phone: Comment on above:Marnie Cody, Supervisory Mechanical System Technician (ASCP)Evaluation note* Diagnosis Onset Date Resolution Status acute Seasonal allergies acute Supervision of normal first acute [facility] Work Phone: Evaluation note* Diagnosis Onset Date [...] allergies acute Supervision of normal first acute [facility] Work Phone: Evaluation note* Diagnosis Onset Date [...] allergies acute Supervision of normal first acute [facility] Work Phone: Evaluation note* Diagnosis Onset Date [...] allergies acute Supervision of normal first acute [facility] Work Phone: Evaluation note* Diagnosis Onset Date [...] allergies acute Supervision of normal first acute [facility] Work Phone: Evaluation note* Diagnosis Onset Date [...] acute Supervision of normal first acute [facility] Work Phone: Evaluation note* Diagnosis Onset Date [...] allergies resolved Supervision of normal first resolved [facility] Work Phone: Evaluation note* Diagnosis Onset Date Resolution Status Cholelithiasis acute Gallbladder sludge acute [facility] Work Phone: Evaluation note* Diagnosis Acute laryngitis- Primary Acute sinusitis, recurrence not specified, unspecified location documented in this encounter [facility] Work Phone: Evaluation note* Diagnosis MADDIE (generalized anxiety disorder) Generalized anxiety disorder [facility] Diagnosis MADDIE (generalized anxiety disorder)- Primary Generalized anxiety disorder Urinary frequency Incomplete bladder emptying Acute pain of left knee [facility] Diagnosis MADDIE (generalized anxiety disorder)- Primary Generalized anxiety disorder Tremor Abnormal involuntary movements Screening for lipid disorders Psoriasis of scalp Other psoriasis documented in this encounter [facility] note* Diagnosis Acute cough- Primary Acute URI Acute upper respiratory infections of unspecified site Sinus drainage Other diseases of nasal cavity and sinuses PND (post-nasal drip) Postnasal drip 16 weeks gestation of state, incidental [facility] Additional Instructions Thank you for [...] general surgeon for further outpatient evaluation and management.[facility] Work Phone: Progress note Author Evelyn Lema [facility] Note Date/Time October 02, 2024 9:28a m [facility] [address] [place] [address], [address] [place] [address] OFFICE VISIT Date of Service: 10/02/24 MR#: [id number] Acct: [id number] Name: CLAUDIA FARFAN Rep #: [id number] : 1995 Provider: Dr. Maribel Villa, Age/Sex: 28/F Location: 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 Date Name GA/Weeks Outcome Route Bth Weight Infant Gen Labor Lgth Anesthesia Del Locat Provider FOB 08/16/22 Singh 39 live - full term 7# 3oz Male [facility] KW/SM Delivery Date: 08/16/22 Last Updated by: [...] oz) 116/72 Negative -?-?-?-?-?-?-?-?-?-?-?-?- Negative 171 -?-?-?-?-?-?-?-?--?-?-?-?- MH-No VB. Nausea controlled with zofran. Br [...] 122/75 Negative -?-?-?-?-?-?-?-?-?-?-?-?- Negative 145 25 -?-?-?-?-?-?-?-?-?-?-?-?- SM- no vb lof go od [...] Counseling, Postterm Counseling, Infant Feeding No , [place] Education, Family Medical Leave or Disability Forms, [...] high risk , unspecified, third trimester Comment: [id number], THOMAS 11/29/24, boy [employer] Singh, BF Pernell (3) : [...] Cosigner Signature: Date (if applicable) CC: ~ [facility] Work Phone: Progress note Author Cristy Abreu [facility] Note Date/Time October 20, 2024 9:16a m [facility] [address] [place] [address], [address] [place] [address] OFFICE VISIT Date of Service: 10/20/24 MR#: [id number] Acct: [id number] Name: CLAUDIA FARFAN Rep #: [id number] : 1995 Provider: DEEPAK Abreu Age/Sex: 28/F Location: [facility] Status: Signed Intake Vital Signs 08/21/24 08:34 10/02/24 09:03 10/20/24 08:58 10/20/24 09:02 Height 5 ft 3 in 5 ft 3 in 5 ft 3 in 5 ft 3 in Weight: 231 lb BMI 40.9 BP 119/78 Intake Visit Reasons: 34wk ob Chief Complaint: 34 Week OB Wick And Base Assembler Required: No Is patient in pain?: No [...] 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 GA appropriate handout given. 10/20/24 1746 <Electronically signed by Cristy bradford CNM> Date _ Cristy Abreu CNM Cosigner Signature: Date (if applicable) CC: ~ [facility] Work Phone: Reason for referral (narrative)No reason for referral information availableWProMedica [facility] Work Phone: Summary Purpose Family History Grandmother [...] No August 16, 2022 8:14am Power of Jumpbasting Lining Baster No August 16 8:14am Advance Directive Response Recorded Date/ Time Living Will No February 23 11:05am Power of Jumpbasting Lining Baster No February 23, 2023 11:05am Advance Directive Response Recorded Date/ Time Living Will No March 12 3:13pm Power of Jumpbasting Lining Baster No March 12, 2023 3:13pm Chief Complaint and Reason for Visit Chief Complaint NOB LMP 7/ Reason for Visit Seasonal allergies Supervision of [...] 26, 2024 9:29am Supervision of high-risk Febru latonya 2024 9:29am Anxiety July 28, 2024 8:3 [...] 2024 8:28 am Obesity affecting August 21, 8:28am August 21, 2024 8:28 am Supervision [...] Supervision of high-risk November 01, 2024 10:23am Chief Complaint Admit Date wk ob July 28, 2024 8:3 3am 26wk ob/glucose August 21, 2024 8:28 am 30wk ob September 20, 2024 9:55am 32wk ob October 02, 2024 8:55a m GROWTH October 04, 2024 3:40p m 34wk ob October 20, 2024 8:54a m 36wk ob November 01, 2024 10:2 3am RULE OUT PREECLAMPSIA November 02, 2024 1: 25am Chief Complaint Admit Date wk ob July 28, 2024 8:3 3am 26wk ob/glucose August 21, 2024 8:28 am 30wk ob September 20, 2024 9:55am 32wk ob October 02, 2024 8:55a m GROWTH October 04, 2024 3:40p m 34wk ob October 20, 2024 8:54a m 36wk ob November 01, 2024 10:2 3am RULE OUT PREECLAMPSIA November 02, 2024 1: 25am RULE OUT PREECLAMPSIA November 05, 2024 12 :13pm GROWTH November 06, 2024 11:3 8am Chief Complaint Admit Date wk ob July 28, 2024 8:3 3am 26wk ob/glucose August 21, 2024 8:28 am 30wk ob September 20, 2024 9:55am 32wk ob October 02, 2024 8:55a m GROWTH October 04, 2024 3:40p m 34wk ob October 20, 2024 8:54a m 36wk ob November 01, 2024 10:2 3am RULE OUT PREECLAMPSIA November 02, 2024 1: 25am RULE OUT PREECLAMPSIA November 05, 2024 12 :13pm GROWTH November 06, 2024 11:3 8am 37wk ob/nst November 09, 2024 2:25 pm Reason for Visit Admit Date Anxiety July [...] Heart murmur October 20, 2024 8:54a m Obesity affecting October 20 8:54am October 20, 2024 8:54a m Supervision of high-risk October 20, 2024 8:54am Large for gestational age fe tus affecting management of mother October 20, 2024 8:54am Anxiety November 01, 2024 10:2 3am Heart murmur November 01, 2024 10:2 3am Obesity affecting November 01 025 10:23am November 01, 2024 10:2 3am Supervision of high-risk November 01, 2024 10:23am Large for gestational age fe tus affecting management of mother November 01, 2024 10:23am Anxiety November 09, 2024 2:25 pm Heart murmur November 09, 2024 2:25 pm Obesity affecting November 09, 025 2:25pm November 09, 2024 2:25 pm Supervision of high-risk November 09, 2024 2:25pm Chief Complaint Admit Date wk ob July 28, 2024 8:3 3am 26wk ob/glucose August 21, 2024 8:28 am 30wk ob September 20, 2024 9:55am 32wk ob October 02, 2024 8:55a m GROWTH October 04, 2024 3:40p m 34wk ob October 20, 2024 8:54a m 36wk ob November 01, 2024 10:2 3am RULE OUT PREECLAMPSIA November 02, 2024 1: 25am RULE OUT PREECLAMPSIA November 05, 2024 12 :13pm GROWTH November 06, 2024 11:3 8am 37wk ob/nst November 09, 2024 2:25 pm 38wk ob/nst November 15, 2024 2:09p m Reason for Visit Admit Date Anxiety July [...] Heart murmur October 20, 2024 8:54a m Obesity affecting October 20 8:54am October 20, 2024 8:54a m Supervision of high-risk October 20, 2024 8:54am Large for gestational age fe tus affecting management of mother October 20, 2024 8:54am Anxiety November 01, 2024 10:2 3am Heart murmur November 01, 2024 10:2 3am Obesity affecting November 01 025 10:23am November 01, 2024 10:2 3am Supervision of high-risk November 01, 2024 10:23am Large for gestational age fe tus affecting management of mother November 01, 2024 10:23am Anxiety November 09, 2024 2:25 pm Heart murmur November 09, 2024 2:25 pm Obesity affecting November 09, 2 025 2:25pm November 09, 2024 2:25 pm Supervision of high-risk November 09, 2024 2:25pm Anxiety November 15, 2024 2:09p m Heart murmur November 15, 2024 2:09p m Obesity affecting November 15 2:09pm November 15, 2024 2:09p m Supervision of high-risk November 15, 2024 2:09pm Chief Complaint Admit Date 22wk ob July 28, 2024 8:3 3am 26wk ob/glucose August 21, 2024 8:28 am 30wk ob September 20, 2024 9:55am 32wk ob October 02, 2024 8:55a m GROWTH October 04, 2024 3:40p m 34wk ob October 20, 2024 8:54a m RULE OUT PREECLAMPSIA November 01, 2024 12 :00am 36wk ob November 01, 2024 10:2 3am RULE OUT PREECLAMPSIA November 02, 2024 12 :00am RULE OUT PREECLAMPSIA November 02, 2024 1: 25am RULE OUT PREECLAMPSIA November 05, 2024 12 :13pm GROWTH November 06, 2024 11:3 8am 37wk ob/nst November 09, 2024 2:25 pm 38wk ob/nst November 15, 2024 2:09p m 39wk ob/nst November 20, 2024 1:55p m Reason for Visit Admit Date Anxiety July [...] Heart murmur October 20, 2024 8:54a m Obesity affecting October 20 8:54am October 20, 2024 8:54a m Supervision of high-risk October 20, 2024 8:54am Large for gestational age fe tus affecting management of mother October 20, 2024 8:54am Anxiety November 01, 2024 10:2 3am Heart murmur November 01, 2024 10:2 3am Obesity affecting November 01 10:23am November 01, 2024 10:2 3am Supervision of high-risk November 01, 2024 10:23am Large for gestational age fe tus affecting management of mother November 01, 2024 10:23am Anxiety November 09, 2024 2:25 pm Heart murmur November 09, 2024 2:25 pm Obesity affecting November 09 2:25pm November 09, 2024 2:25 pm Supervision of high-risk November 09, 2024 2:25pm Anxiety November 15, 2024 2:09p m Heart murmur November 15, 2024 2:09p m Obesity affecting November 15 2:09pm November 15, 2024 2:09p m Supervision of high-risk November 15, 2024 2:09pm Anxiety November 20, 2024 1:55p m Heart murmur November 20, 2024 1:55p m Obesity affecting November 20 1:55pm November 20, 2024 1:55p m Supervision of high-risk November 20, 2024 1:55pm Reason for Referral Specialty Diagnoses / Procedures Referred By Contac t Referred To Contact [facility] Diagnoses Acute pain of left knee Procedures CONSULT TO PHYSICAL THERAPY PHYSICAL THERAPY EVALUATION HIGH COMPLEX 45 MINS Hector Winchester, PET ADOPTION COUNSELOR.SECURITY ASSOCIATE [address] [place] [address] [facility] [address] [address] Referral ID Status Reason Start Date Expiration Date Visits Requested Visits Authorized [id number] Pending Review Auto-Generat ed Referral 01/04/2024 01/03/2025 1 1 Specialty Diagnoses / Procedures Referred By Contac t Referred To Contact XR IMAGING Diagnoses Acute pain of left knee Procedures XR KNEE INJURY 4V AP/LAT/OBLS LEFT RADIOLOGIC EXAM KNEE COMPLETE 4/MORE VIEWS Hector Winchester, PET ADOPTION COUNSELOR.SECURITY ASSOCIATE [address] [place] [address] [place] [address] Referral ID Status Reason Start Date Expiration Date Visits Requested Visits Authorized [id number] New Request Auto-Generat ed Referral 01/04/2024 02/02/2025 1 1 Specialty Diagnoses / Procedures Referred By Contac t Referred To Contact Urology Diagnoses Urinary frequency Incomplete bladder emptying Procedures CONSULT TO UROLOGY OFFICE/OUTPATIENT NEW HIGH MDM 60 MINUTES Hector Winchester PET ADOPTION COUNSELOR.SECURITY ASSOCIATE [address] [place] [address] Referral ID Status Reason Start Date Expiration Date Visits Requested Visits Authorized [id number] Authorized PCP Requested Referral 01/04/2024 01/03/2025 1 1 Additional Source Comments INFORMATION SOURCE (unrecogn ized section and content) DATE CREATED AUTHOR 03/19/2018 [facility] DATE CREATED AUTHOR AUTHOR'S ORGANIZ ATION 09/11/2018 [facility] DATE CREATED AUTHOR AUTHOR'S ORGANIZ ATION 07/07/2020 [facility] DATE CREATED AUTHOR AUTHOR'S ORGANIZ ATION 04/01/2022 [facility] DATE CREATED AUTHOR AUTHOR'S ORGANIZ ATION 10/25/2022 [facility] DATE CREATED AUTHOR AUTHOR'S ORGANIZ ATION 10/24/2023 [facility] DATE CREATED AUTHOR AUTHOR'S ORGANIZ ATION 03/27/2024 [facility] DATE CREATED AUTHOR AUTHOR'S ORGANIZ ATION 06/19/2024 [facility] DATE CREATED AUTHOR AUTHOR'S ORGANIZ ATION 07/17/2024 [facility] DATE CREATED AUTHOR AUTHOR'S ORGANIZ ATION 11/17/2024 [facility] Goals (unrecognized section and content) Goals may [...] Provider, Refer ring Provider Active Gui Sloan BULB PLANTER, BULB PLANTER-C Attending Provider Active Team Status: Inactive Member Role Status Dates No Primary Care Physician Primary Care Provider, Refer ring Provider Active Rina Mead CNM Attending Provider Active Team Status: Inactive Member Role Status Dates No Primary Care Physician Primary Care Provider Active Gui Sloan BULB PLANTER, BULB PLANTER-C Attending Provider, Referring Provider Active Team Status: [...] Yang MD Other Provider Active Gui Sloan BULB PLANTER, BULB PLANTER-C Attending Provider Active Team Status: Inactive Member [...] Dr. Jaylan Pedroza DO Emergency Provider Active Sanitary Chemist Relationship Specialty Start Date End Date Ellen Veras MD [address] [facility] [address] [address] PCP - General 12/08/19 Sanitary Chemist Relationship Specialty Start Date End Date Hector Winchester, PET ADOPTION COUNSELOR.SECURITY ASSOCIATE [address] [place] [address] PCP - General Family Medicine 01/04/24 Sanitary Chemist Relationship Specialty Start Date End Date Hector Winchester, PET ADOPTION COUNSELOR.SECURITY ASSOCIATE [address] [place] [address] PCP - General Family Medicine 01/04/24 Sanitary Chemist Relationship Specialty Start Date End Date Hector Winchester, PET ADOPTION COUNSELOR.SECURITY ASSOCIATE [address] [place] [address] PCP - General Family Medicine 01/04/24 Sanitary Chemist Relationship Specialty Start Date End Date Hector Winchester, PET ADOPTION COUNSELOR.SECURITY ASSOCIATE [address] [place], [place] [id number] PCP - General Family Medicine 01/04/24 Sanitary Chemist Relationship Specialty Start Date End Date Hector Winchester, PET ADOPTION COUNSELOR.SECURITY ASSOCIATE [address] [place], [place] [id number] PCP - General Family Medicine 01/04/24 Team Status: Inactive Member Role Status Dates No Primary Care Physician Primary Care Provider Active Start: May 24, 2024 End: May 24, 2024 No Primary Care Physician Referring Provider Active Start: May 24, 2024 End: May 24, 2024 Gui Sloan NP, BULB PLANTER-C Attending Provider Active Start: May 24, 2024 [...] End: September 20, 2024 Gui Sloan NP, BULB PLANTER-C Attending Provider Active Start: September 20, 2024 End: September 20, 2024 Team Status: Inactive Member Role Status Dates No Primary Care Physician Primary Care Provider Active Start: October 02, 2024 End: October 02, 2024 No Primary Care Physician Referring Provider Active Start: October 02, 2024 End: October 02, 2024 Dr. Evelyn Villa , Attending Provider Activ e Start: October 02, 2024 End: October 02, 2024 Team Status: Inactive Member Role Status Dates No Primary Care Physician Primary Care Provider Active Start: October 04, 2024 End: October 04, 2024 Dr. Evelyn Villa DO Attending Provider Activ e Start: October 04, 2024 End: October 04, 2024 Dr. Evelyn Villa DO Referring Provider Activ e Start: October [...] November 01, 2024 End: November 01, 2024 Team Status: Active Member Role Status Dates No Primary Care Physician Primary Care Provider Active Start: November 01, 2024 Dr. Penelope Yang MD Attending Provider Active Start: November 01, 2024 Dr. Penelope Yang MD Referring Provider Active Start: November 01, 2024 Team Status: Inactive Member Role Status Dates No Primary Care Physician Primary Care Provider Active Start: November 02, 2024 End: November 02, 2024 Dr. Penelope Yang MD Attending Provider Active Start: November 02, 2024 End: November 02, 2024 Team Status: Inactive Member Role Status Dates No Primary Care Physician Primary Care Provider Active Start: November 01, 2024 End: November 01, 2024 Dr. Penelope Yang MD Attending Provider Active Start: November 01, 2024 End: November 01, 2024 Dr. Penelope Yang MD Referring Provider Active Start: November 01, 2024 End: November 01, 2024 Team Status: Active Member Role Status Dates No Primary Care Physician Primary Care Provider Active Start: November 05, 2024 Dr. Penelope Yang MD Attending Provider Active Start: November 05, 2024 Dr. Penelope Yang MD Other Provider Active Start: November 05, 2024 Team Status: Active Member Role Status Dates No Primary Care Physician Primary Care Provider Active Start: November 06, 2024 Dr. Evelyn Villa DO Attending Provider Activ e Start: November 06, 2024 Dr. Evelyn Villa DO Referring Provider Activ e Start: November 06, 2024 Team Status: Inactive Member Role Status Dates No Primary Care Physician Primary Care Provider Active Start: November 09, 2024 End: November 09, 2024 No Primary Care Physician Referring Provider Active Start: November 09, 2024 End: November 09, 2024 Dr. Penelope Yang MD Attending Provider Active Start: November 09, 2024 End: November 09, 2024 Team Status: Active Member Role/Relationship Status Dates No Primary Care Physician Primary Care Provider Active Team Status: Inactive Member Role/Relationship Status Dates No Primary Care Physician Primary Care Provider Active Start: July 28, 2024 End: July 28, 2024 No Primary Care Physician Referring Provider Active Start: July 28, 2024 End: July 28, 2024 Rina Mead CNM Attending Provider Active Start: July 28, 2024 End: July 28, 2024 Team Status: Inactive Member Role/Relationship Status Dates No Primary Care Physician Primary Care Provider Active Start: August 21, 2024 End: August 21, 2024 No Primary Care Physician Referring Provider Active Start: August 21, 2024 End: August 21, 2024 Dr. Penelope Yang MD Attending Provider Active Start: August 21, 2024 End: August 21, 2024 Team Status: Inactive Member Role/Relationship Status Dates No Primary Care Physician Primary Care Provider Active Start: August 21, 2024 End: August 21, 2024 Dr. Penelope Yang MD Attending Provider Active Start: August 21, 2024 End: August 21, 2024 Team Status: Inactive Member Role/Relationship Status Dates No Primary Care Physician Primary Care Provider Active Start: September 20, 2024 End: September 20, 2024 No Primary Care Physician Referring Provider Active Start: September 20, 2024 End: September 20, 2024 Gui Sloan NP, BULB PLANTER-C Attending Provider Active Start: September 20, 2024 End: September 20, 2024 Team Status: Inactive Member Role/Relationship Status Dates No Primary Care Physician Primary Care Provider Active Start: October 02, 2024 End: October 02, 2024 No Primary Care Physician Referring Provider Active Start: October 02, 2024 End: October 02, 2024 Dr. Evelyn Villa , DO Attending Provider Activ e Start: October 02, 2024 End: October 02, 2024 Team Status: Inactive Member Role/Relationship Status Dates No Primary Care Physician Primary Care Provider Active Start: October 04, 2024 End: October 04, 2024 Dr. Evelyn Villa , DO Attending Provider Activ e Start: October 04, 2024 End: October 04, 2024 Dr. Evelyn Villa , DO Referring Provider Activ e Start: October 04, 2024 End: October 04, 2024 Team Status: Inactive Member Role/Relationship Status Dates No Primary Care Physician Primary Care Provider Active Start: October 20, 2024 End: October 20, 2024 No Primary Care Physician Referring Provider Active Start: October 20, 2024 End: October 20, 2024 Cristy Abreu CNM Attending Provider Active S tart: October 20, 2024 End: October 20, 2024 Team Status: Inactive Member Role/Relationship Status Dates No Primary Care Physician Primary Care Provider Active Start: November 01, 2024 End: November 01, 2024 No Primary Care Physician Referring Provider Active Start: November 01, 2024 End: November 01, 2024 Dr. Penelope Yang MD Attending Provider Active Start: November 01, 2024 End: November 01, 2024 Team Status: Inactive Member Role/Relationship Status Dates No Primary Care Physician Primary Care Provider Active Start: November 01, 2024 End: November 01, 2024 Dr. Penelope Yang MD Attending Provider Active Start: November 01, 2024 End: November 01, 2024 Dr. Penelope Yang MD Referring Provider Active Start: November 01, 2024 End: November 01, 2024 Team Status: Inactive Member Role/Relationship Status Dates No Primary Care Physician Primary Care Provider Active Start: November 02, 2024 End: November 02, 2024 Dr. Penelope Yang MD Attending Provider Active Start: November 02, 2024 End: November 02, 2024 Team Status: Active Member Role/Relationship Status Dates No Primary Care Physician Primary Care Provider Active Start: November 05, 2024 Dr. Penelope Yang MD Attending Provider Active Start: November 05, 2024 Dr. Penelope Yang MD Other Provider Active Start: November 05, 2024 Team Status: Inactive Member Role/Relationship Status Dates No Primary Care Physician Primary Care Provider Active Start: November 06, 2024 End: November 06, 2024 Dr. Evelyn Villa DO Attending Provider Activ e Start: November 06, 2024 End: November 06, 2024 Dr. Evelyn Villa , Referring Provider Activ e Start: November 06, 2024 End: November 06, 2024 Team Status: Inactive Member Role/Relationship Status Dates No Primary Care Physician Primary Care Provider Active Start: November 09, 2024 End: November 09, 2024 No Primary Care Physician Referring Provider Active Start: November 09, 2024 End: November 09, 2024 Dr. Penelope Yang MD Attending Provider Active Start: November 09, 2024 End: November 09, 2024 Team Status: Inactive Member Role/Relationship Status Dates No Primary Care Physician Primary Care Provider Active Start: November 15, 2024 End: November 15, 2024 No Primary Care Physician Referring Provider Active Start: November 15, 2024 End: November 15, 2024 Dr. Evelyn Villa DO Attending Provider Activ e Start: November 15, 2024 End: November 15, 2024 Team Status: Active Member Role/Relationship Status Dates No Primary Care Physician Primary Care Provider Active Start: November 01, 2024 Dr. Penelope Yang MD Attending Provider Active Start: November 01, 2024 Team Status: Inactive Member Role/Relationship Status Dates No Primary Care Physician Primary Care Provider Active Start: November 01, 2024 End: November 01, 2024 No Primary Care Physician Referring Provider Active Start: November 01, 2024 End: November 01, 2024 Dr. Penelope Yang MD Attending Provider Active Start: November 01, 2024 End: November 01, 2024 Team Status: Inactive Member Role/Relationship Status Dates No Primary Care Physician Primary Care Provider Active Start: November 01, 2024 End: November 01, 2024 Dr. Penelope Yang MD Attending Provider Active Start: November 01, 2024 End: November 01, 2024 Dr. Penelope Yang MD Referring Provider Active Start: November 01, 2024 End: November 01, 2024 Team Status: Active Member Role/Relationship Status Dates No Primary Care Physician Primary Care Provider Active Start: November 02, 2024 Dr. Penelope Yang MD Attending Provider Active Start: November 02, 2024 Team Status: Inactive Member Role/Relationship Status Dates No Primary Care Physician Primary Care Provider Active Start: November 02, 2024 End: November 02, 2024 Dr. Penelope Yang MD Attending Provider Active Start: November 02, 2024 End: November 02, 2024 Team Status: Active Member Role/Relationship Status Dates No Primary Care Physician Primary Care Provider Active Start: November 05, 2024 Dr. Penelope Yang MD Attending Provider Active Start: November 05, 2024 Dr. Penelope Yang MD Other Provider Active Start: November 05, 2024 Team Status: Inactive Member Role/Relationship Status Dates No Primary Care Physician Primary Care Provider Active Start: November 06, 2024 End: November 06, 2024 Dr. Evelyn Villa DO Attending Provider Activ e Start: November 06, 2024 End: November 06, 2024 Dr. Evelyn Villa DO Referring Provider Activ e Start: November 06, 2024 End: November 06, 2024 Team Status: Inactive Member Role/Relationship Status Dates No Primary Care Physician Primary Care Provider Active Start: November 09, 2024 End: November 09, 2024 No Primary Care Physician Referring Provider Active Start: November 09, 2024 End: November 09, 2024 Dr. Penelope Yang MD Attending Provider Active Start: November 09, 2024 End: November 09, 2024 Team Status: Inactive Member Role/Relationship Status Dates No Primary Care Physician Primary Care Provider Active Start: November 15, 2024 End: November 15, 2024 No Primary Care Physician Referring Provider Active Start: November 15, 2024 End: November 15, 2024 Dr. Evelyn Villa DO Attending Provider Activ e Start: November 15, 2024 End: November 15, 2024 Team Status: Inactive Member Role/Relationship Status Dates No Primary Care Physician Primary Care Provider Active Start: November 20, 2024 End: November 20, 2024 No Primary Care Physician Referring Provider Active Start: November 20, 2024 End: November 20, 2024 Cristy Abreu CNM Attending Provider Active S tart: November 20, 2024 End: November 20, 2024 Reason for Visit (unrecogniz ed section [...] or prosecute any alcohol or drug abuse patient.[facility] the event this information is protected by the Federal Confidentiality of Alcohol and Drug Abuse Patient Records regulations: The Federal rules restrict any use of the information to criminally investigate or prosecute any alcohol or drug abuse patient.[facility] the event this information is protected by the Federal Confidentiality of Alcohol and Drug Abuse Patient Records regulations: The Federal rules restrict any use of the information to criminally investigate or prosecute any alcohol or drug abuse patient.[facility] the event this information is protected by the Federal Confidentiality of Alcohol and Drug Abuse Patient Records regulations: The Federal rules restrict any use of the information to criminally investigate or prosecute any alcohol or drug abuse patient.[facility] the event this information is protected by the Federal Confidentiality of Alcohol and Drug Abuse Patient Records regulations: The Federal rules restrict any use of the information to criminally investigate or prosecute any alcohol or drug abuse patient.[facility] FOR RECORDS PERTAINING TO PATIENTS WHO ARE [...] BE BASED ON THE PRIMARY CLINICAL RECORDS. [facility] [employer] [facility]. provides no warranty or guarantee of the accuracy or completeness of information in this document.
--- OUTSIDE RECORDS SUMMARY | 2024-11-23 22:53 | XMS RPT_ITS | CCD ---
Author Organization [facility]iniSynm Care Team Providers Care Reverse Engineer Name Role Phone WOOD, PARMINDER L Unavailable [...] Care Unavailable SantinoYunior pichardo Unavailable Unavailable Ellen eVras Unavailable Unavailable Blaine Lam Unavailable Unavailable Care Physician, No Primary Primary Care Provider Unavailable Care Physician, No Primary Referring Provider Un available Dr. Evelyn Villa Attending Provider Ellen Veras Unavailable Ismael Davenport Unavailable Unavailable Care Physician, No Primary Primary Care Provider Unavailable Care Physician, No Primary Referring Provider Un available Dr. Penelope Yang Attending Provider [phone] Nathalia WAREHOUSE ORDER PULLER, GISELE-C Gui Attending Provider [phone] DEEPAK Mead Attending Provider [phone] Care Physician, No Primary Primary Care Provider Unavailable Care Physician, No Primary Referring Provider Un available Dr. Penelope Yang Attending Provider [phone] Care Physician, No Primary Primary Care Provider Unavailable Care Physician, No Primary Referring Provider Un available Nathalia WAREHOUSE ORDER PULLER, WAREHOUSE ORDER PULLER-C Gui Attending Provider [phone] DEEPAK Mead Referring Provider Mead, CNM Rina Other Provider Care Physician, No Primary Primary Care Provider Unavailable Care Physician, No Primary Referring Provider Un available Dr. Penelope Yang Attending Provider [phone] Nathalia WAREHOUSE ORDER PULLER, WAREHOUSE ORDER PULLER-C Gui Attending Provider [phone] Mead, DEEPAK [...] available Dr. Christal Mccall Attending Provider [phone] Dr. Christal Mccall Referring Provider [phone] Dr. Christal Mccall Other Provider Ellen Veras MD Primary Care Provider ELLEN VERAS Primary Care Unavailable CAITLIN MEHTA Attending Unavailable Marsha HAWLEYN.FOURDRINIER MACHINE OPERATOR, Hector C Primary Care Provider TRILL, HECTOR [...] Un available Nathalia JAQUEZ-CGui Attending Provider [phone] Cristy Abreu CNM Attending Provider [phone] Rina Mead CNM Attending Provider Trey KHAN, [...] available Cristy Abreu CNM Attending Provider [phone] Dr. Penelope Yang MD Referring Provider [phone] Dr. Penelope Yang MD Other Provider [phone] Rina Mead Attending Unavailable Care Physician, No [...] [Environmental allergy] Propensity to adverse reactions (disorder) [facility] Repository (1 source) No Known Medication Allergies; Translations: [No Known Medication Allergies] Propensity to adverse reactions to drug (disorder) [facility] Repository (1 source) bee pollen Allergy to substance (finding) [facility] [employer] Work Phone: (1 source) Animal dander - Cats Allergy to substance (finding) [facility] [employer] Work Phone: Medications Current Medications Medication Drug [...] URI , PND (post-nasal drip) Use 1 [place] in each nostril two times a day [...] Acute URI , Sinus drainage Use 1 [place] in each nostril daily at bedtime for [...] Lakeshia Levine Status: Other Generic Substitution Allowed [place]-3 Fatty Acids (2 sources) Start: 02-24-20 take 500 mg by mouth once daily [place]-3 Fatty Acids Active 500 MG PO DAILY February 23, 2023 12:00am [place]-3 Fatty Acids capsule (11 sources) Start: 02-24-20 take 1 capsule by mouth once daily [place]-3 Fatty Acids capsule Active 500 mg PO [...] Shabazz Start: 18-Oct-2022 Generic Substitution Allowed Pnv No.039-Wg-Wr0-Dha-Epa-Fi sh (8 sources) Start: 01-13-2022 take 1 tablet by mouth once daily Pnv No.357-Yg-Vu1-Hsj-Rns-Mwpw Active 1 TABLET PO DAILY January 13, 2022 12:00am Start: 01-13-2022 take 1 tablet by nneka th once daily Pnv No.919-Cx-Vq2-Hfl-Zvd-Hurq Active 1 TABLET PO DAILY January 12, 2022 11:00pm Start: 01-13-2022 Pnv No.153-Fa- Oy2-Wjh-Wit-Fish Active TABLET PO January 12, 2022 11:00pm Start: 01-13-2022 Pnv No.153-Fa- Yz2-Pxe-Ign-Fish Active TABLET PO January 13, 2022 12:00am Pnv No.714-Ho-Ww7-Dha-Epa-Fi sh 400 mcg-35 mg- 25 mg-5 mg tablet,chewable (11 sources) Start: 04-18-2024 Pnv No.977-Ag-Hu4-Dha-Epa-Fi sh 400 mcg-35 mg- 25 mg-5 mg [...] ultrasound.ultrasound negative for calculi. s/p tylenol and qgwgzudq5j ancef, will transition to keflex outpatient. Other complications of (6 sources) Infections of kidney in , unspecified trimester; Translations: [Infections of genitourinary tract in , unspecified as to episode of care or not applicable] 07-27-2022 Episodic Other complications of (20 sources) High risk ; Translations: [Supervision of high risk , unspecified, unspecified trimester] 08-21-2024 Episodic Comment on above: [id number], THOMAS 11/29/24 , boy [employer] Singh, [...] (U) Negative [facility] Laboratory - UrinalysisOrder ed By: Evelyn Lema on 11-15-2024 Protein Ql (U) Negative [facility] Bilingual Nanny Office Visit Reporton 11-15-2024 Bilingual Nanny Office Visit Report [facility] [address], [address] [place] [address] OFFICE VISIT Date of Service: 11/15/24 MR#: [id number] Acct: [id number] Name: CLAUDIA FARFAN Rep #: [id number] : 1995 Provider: Dr. 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 Normal [facility] Laboratory - Chemistry and C hemistry - challengeOrdered By: Penelope Yang on 11-09-2024 Glucose Ql (U) Negative [facility] Laboratory - UrinalysisOrder ed By: Penelope Yang on 11-09-2024 Protein Ql (U) Negative [facility] Bilingual Nanny Office Visit Reporton 11-09-2024 Bilingual Nanny Office Visit Report [facility] [address], [address] [place] [address] OFFICE VISIT Date of Service: 11/09/24 MR#: [id number] Acct: [id number] Name: CLAUDIA FARFAN Rep #: [id number] : 1995 Provider: Dr. 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 Normal [facility] OB Limited With Biometricson 11-06-2024 OB Limited With Biometrics [facility] [address] [place] [id number] OB Limited With Biometrics MR#: [id number] Acct: [id number] Name: CLAUDIA FARFAN MARLENE Rep #: [id number] : 1995 F 28 From: José garcia MD PCP: Care Physician,No Primary Status: REG CLI Study: OB Limited With Biometrics Date of Exam: 11/06 Exam# [id number] Ordering Dr: Evelyn Villa DO PROCEDURE: OB [...] within lower limits of normal. Reading Location: [id number] CC: Dr. Evelyn Villa DO; No Primary Care Physician Information Assurance Analyst: Signed Normal [facility] OB Triage Progress Noteon OB Triage Progress Note [facility] Medical Records Department [address] [place] [address] OB Triage Progress Note 11/05/24 1213 MR#: [id number] Acct: [id number] Name: CLAUDIA FARFAN MARLENE Rep #: [id number] : 1995 28 From: Penelope Yang MD PCP: Care Physician,No Primary Status:SILVERIO Barry DOS: Location: WPOUT Progress Notes Date of Service: 11/02/24 Progress Note: Patient presents for triage evaluation secondary to headache possible preeclampsia FHT: 140 Moderate variability reactive no decelerations category I tracing Choudrant: no regular Contractions Assessment and plan: headache [...] (0-200) mg/g CRE Charges/Coding Procedures Urinary/Genital 52xxx-59xxx: 00023-29 non-stress test Interp 11/05/24 1214 Date Penelope Yang MD Cosigner Signature (if applicable): Date CC: Dr. Penelope Yang MD; No Primary Care Physician Signed Normal [facility] Rule out Beta Strep (Grp. B) on 11-03-2024 ROBERTO Group B Beta Streptococcus is not isolated. Normal [facility] Comment on above: Performed By: #### M 100.3400 #### [facility] Laboratory [address] [place], [address] AST(SGOT)on 11-02-2024 AST [Catalytic activity/Vol] 18 U/L Normal <=31 [facility] Comment on above: Performed By: #### L 100.0500, L501.1400, L501.4100, L501.0900, L501.1105, L501.4405 ####[facility] [address] [place], [address] Alanine Aminotransferas (SGP T)on 11-02-2024 ALT [Catalytic activity/Vol] 9 U/L Normal <=34 [facility] Comment on above: Performed By: #### L 100.0500, L501.1400, L501.4100, L501.0900, L501.1105, L501.4405 ####[facility] [address] [place], [address] CBC-Complete Blood Cnt No Di ffon 11-02-2024 Erythrocyte distribution width (RBC) [Ratio] 12.5 % Normal 11.6-14.6 [facility] Comment on above: Performed By: #### L 100.0500, L501.1400, L501.4100, L501.0900, L501.1105, L501.4405 ####[facility] [address] [place], [address] Hematocrit (Bld) [Volume fraction] 38.4 % Normal 37-47 [facility] Comment on above: Performed By: #### L 100.0500, L501.1400, L501.4100, L501.0900, L501.1105, L501.4405 ####[facility] [address] [place], [address] Hemoglobin (Bld) [Mass/Vol] 13.4 g/dL Normal 12.0-15.0 [facility] Comment on above: Performed By: #### L 100.0500, L501.1400, L501.4100, L501.0900, L501.1105, L501.4405 ####[facility] [address] [place], [address] MCH (RBC) [Entitic mass] 29.8 pg Normal 27.0-32.0 [facility] Comment on above: Performed By: #### L 100.0500, L501.1400, L501.4100, L501.0900, L501.1105, L501.4405 ####[facility] [address] [place], [address] MCHC (RBC) [Mass/Vol] 34.9 g/dL Normal 32-36 [facility] Comment on above: Performed By: #### L 100.0500, L501.1400, L501.4100, L501.0900, L501.1105, L501.4405 ####[facility] [address] [place], [address] MCV (RBC) [Entitic vol] 85.5 fL Normal 81-99 [facility] Comment on above: Performed By: #### L 100.0500, L501.1400, L501.4100, L501.0900, L501.1105, L501.4405 ####[facility] [address] [place], [address] Platelet mean volume (Bld) [Entitic vol] 12.3 fL High 6.2-12.0 [facility] Comment on above: Performed By: #### L 100.0500, L501.1400, L501.4100, L501.0900, L501.1105, L501.4405 ####[facility] [address] [place], [address] Platelets (Bld) [#/Vol] 208 10*3/uL Normal 150-450 [facility] Comment on above: Performed By: #### L 100.0500, L501.1400, L501.4100, L501.0900, L501.1105, L501.4405 ####[facility] [address] [place], [address] RBC (Bld) [#/Vol] 4.49 10*6/uL Normal 4.2-5.4 [facility] Comment on above: Performed By: #### L 100.0500, L501.1400, L501.4100, L501.0900, L501.1105, L501.4405 ####[facility] [address] [place], [address] RDW SD 38.9 fl Normal 35.1-43.9 [facility] Comment on above: Performed By: #### L 100.0500, L501.1400, L501.4100, L501.0900, L501.1105, L501.4405 ####[facility] [address] [place], [address] WBC (Bld) [#/Vol] 11.6 10*3/uL High 4.4-11.0 [facility] Comment on above: Performed By: #### L 100.0500, L501.1400, L501.4100, L501.0900, L501.1105, L501.4405 ####[facility] [address] [place], [address] Erythrocyte distribution wid th ratioOrdered By: Penelope Yang on 11-02-2024 Erythrocyte distribution width (RBC) [Ratio] 12.5 % 11.6-14.6 [facility] Erythrocyte distribution wid th standard deviationOrdered By: Penelope Yang on 11-02-2024 Erythrocyte distribution width (RBC) [Ratio] 38.9 fl 35.1-43.9 [facility] Glomerular filtration rate ( GFR) estimation/1.73 sq m using serum, plasma, or whole bOrdered By: Penelope Yang on 11-02-2024 GFR/1.73 sq M.predicted among non-blacks MDRD (S/P/Bld) [Vol rate/Area] 123 mL/min/{1.73_m2} >60 [facility] Comment on above: mL/min/1.73m2 CKD-EP I Creatinine Equation (2020) Hematocrit Auto (Bld) [Volum e fraction]Ordered By: Penelope Yang on 11-02-2024 Hematocrit (Bld) [Volume fraction] 38.4 % 37-47 [facility] Hemoglobin measurementOrdere d By: Penelope Yang on 11-02-2024 Hemoglobin (Bld) [Mass/Vol] 13.4 g/dL 12.0-15.0 [facility] Laboratory - Chemistry and C hemistry - challengeOrdered By: Penelope Yang on 11-02-2024 AST [Catalytic activity/Vol] 18 U/L <32 [facility] MCV (mean corpuscular volume ) determinationOrdered By: Penelope Yang on 11-02-2024 MCV (RBC) [Entitic vol] 85.5 fL 81-99 [facility] Mean corpuscular hemoglobin (MCH) determinationOrdered By: Penelope Yang on 11-02-2024 MCH (RBC) [Entitic mass] 29.8 pg 27.0-32.0 [facility] Mean corpuscular hemoglobin concentration (MCHC) determinationOrdered By: Penelope Yang on 11-02-2024 MCHC (RBC) [Mass/Vol] 34.9 g/dL 32-36 [facility] Mean platelet volume determi nationOrdered By: Penelope Yang on 11-02-2024 Platelet mean volume (Bld) [Entitic vol] 12.3 fL High 6.2-12.0 [facility] Platelet countOrdered By: Dheeraj Yang on 11-02-2024 Platelets (Bld) [#/Vol] 208 10*3/uL 150-450 [facility] Protein+Creatinine Ratio,Uri neon 11-02-2024 PROT:CRE RATIO 153 mg/g CRE Normal 0-200 [facility] Comment on above: Performed By: #### L 100.0500, L501.1400, L501.4100, L501.0900, L501.1105, L501.4405 ####[facility] [address] [place], [address] Protein (U) [Mass/Vol] 7.0 mg/dL Normal 0.0-12.0 [facility] Comment on above: Performed By: #### L 100.0500, L501.1400, L501.4100, L501.0900, L501.1105, L501.4405 ####[facility] [address] [place], [address] UR CREAT 45.90 mg/dL Normal 28.00-217.00 [facility] Comment on above: Performed By: #### L 100.0500, L501.1400, L501.4100, L501.0900, L501.1105, L501.4405 ####[facility] [address] [place], [address] RBC Auto (Bld) [#/Vol]Ordere d By: Penelope Yang on 11-02-2024 RBC (Bld) [#/Vol] 4.49 10*6/uL 4.2-5.4 [facility] Random urine creatinine jay urement (mass/volume)Ordered By: Penelope Yang on 11-02-2024 Creatinine Unsp time (U) [Mass/Vol] 45.90 mg/dL 28.00-217.00 [facility] Serum Creatinine AND GFRon 0 11-02-2024 Creatinine [Mass/Vol] 0.64 mg/dL Low 0.70-1.20 [facility] Comment on above: Performed By: #### L 100.0500, L501.1400, L501.4100, L501.0900, L501.1105, L501.4405 ####[facility] [address] [place], [address] GFR/1.73 sq M.predicted among non-blacks MDRD (S/P/Bld) [Vol rate/Area] 123 mL/min/{1.73_m2} Normal >60 [facility] Comment on above: Result Comment: mL/m in/1.73m2 CKD-EPI Creatinine Equation (2020) Performed By: #### L 100.0500, L501.1400, L501.4100, L501.0900, L501.1105, L501.4405 ####[facility] [address] [place], [place], [address] Serum creatinine measurement (mass/volume)Ordered By: Penelope Yang on 11-02-2024 Creatinine [Mass/Vol] 0.64 mg/dL Low 0.70-1.20 [facility] Serum or plasma alanine rae otransferase (ALT) measurementOrdered By: Penelope Yang on 11-02-2024 ALT [Catalytic activity/Vol] 9 U/L <35 [facility] Serum or plasma uric acid me asurement (mass/volume)Ordered By: Penelope Yang on 11-02-2024 Urate [Mass/Vol] 5.7 mg/dL 2.6-6.0 [facility] Comment on above: The drugs N-Acetylcy steine and Metamizole may falsely depress this assay. Uric Acidon 11-02-2024 URIC 5.7 mg/dL Normal 2.6-6.0 [facility] Comment on above: Result Comment: The drugs N-Acetylcysteine and Metamizole may falsely depress this assay. Performed By: #### L 100.0500, L501.1400, L501.4100, L501.0900, L501.1105, L501.4405 ####[facility] [address] [place], [place], [address] Urine protein measurement (m ass/volume)Ordered By: Penelope Yang on 11-02-2024 Protein (U) [Mass/Vol] 7.0 mg/dL 0.0-12.0 [facility] Urine protein/creatinine mas s ratioOrdered By: Penelope Yang on 11-02-2024 Protein/Creatinine (U) [Mass ratio] 153 mg/g CRE 0-200 [facility] White blood cell (WBC) count Ordered By: Penelope Yang on 11-02-2024 WBC (Bld) [#/Vol] 11.6 10*3/uL High 4.4-11.0 [facility] Laboratory - Chemistry and C hemistry - challengeOrdered By: Penelope Yang on 11-01-2024 Glucose Ql (U) Negative [facility] Laboratory - UrinalysisOrder ed By: Penelope Yang on 11-01-2024 Protein Ql (U) Negative [facility] Bilingual Nanny Office Visit Reporton 11-01-2024 Bilingual Nanny Office Visit Report [facility] [address], [address] [place] [address] OFFICE VISIT Date of Service: 11/01/24 MR#: [id number] Acct: [id number] Name: CLAUDIA FARFAN MARLENE Rep #: [id number] : 1995 Provider: Dr. 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 NIPT HPI 36wk ob Details: CLAUDIA FARFAN is a 28 [...] included)... Normal [facility] Screening beta-hemolytic Str eptococcus cultureOrdered By: Penelope Yang on 11-01-2024 Beta-hemolytic Streptococcus culture Group B Beta Streptococcus is not isolated. [facility] Laboratory - Chemistry and C hemistry - challengeOrdered By: Cristy Abreu on 10-20-2024 Glucose Ql (U) Negative [facility] Laboratory - UrinalysisOrder ed By: Cristy Abreu on 10-20-2024 Protein Ql (U) Negative [facility] Bilingual Nanny Office Visit Reporton 10-20-2024 Bilingual Nanny Office Visit Report [facility] [address], [address] [place] [address] OFFICE VISIT Date of Service: 10/20/24 MR#: [id number] Acct: [id number] Name: CLAUDIA FARFAN Rep #: [id number] : 1995 Provider: DEEPAK Traylor ams Age/Sex: 28/F Location: [facility] Status: Signed Intake Vital Signs 08/21/24 08:34 10/02/24 09:03 10/20/24 08:58 10/20/24 09:02 Height 5 ft 3 in 5 ft 3 in 5 ft 3 in 5 ft 3 in Weight: 231 lb BMI 40.9 BP 119/78 Intake Visit Reasons: 34wk ob Chief Complaint: 34 Week OB Pocket Marker Required: No Is patient in pain?: No [...] 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 Normal [facility] OB Limited With Biometricson 10-04-2024 OB Limited With Biometrics [facility] [address] [place] [address] OB Limited With Biometrics MR#: [id number] Acct: [id number] Name: CLAUDIA FARFAN MARLENE Rep #: [id number] : 1995 F 28 From: Tay Mansfield MD PCP: Care Physician,No Primary Status: REG CLI Study: OB Limited With Biometrics Date of Exam: 10/04 Exam# [id number] Ordering Dr: Evelyn Villa DO PROCEDURE: OB [...] by current ultrasound 32 weeks 1 day, TOHMAS 11/28/2024 age by LMP 32 weeks 0 days, THOMAS 11/29/2024 US/OB Limited With Biometrics IMPRESSION: Single live intrauterine with biometrics as above. FL/AC 20%, (20.00-24.00 32 weeks 0 day) CI 70%, (7.00-86.00, 32 weeks 0 day) Reading Location: [id number]GLGJZ[facility]-YG CC: Dr. Evelyn Villa DO; No Primary Care Physician Information Assurance Analyst: Signed Normal [facility] Laboratory - Chemistry and C hemistry - challengeOrdered By: Evelyn Lema on 10-02-2024 Glucose Ql (U) Negative [facility] Laboratory - UrinalysisOrder ed By: Evelyn Lema on 10-02-2024 Protein Ql (U) Trace [facility] Bilingual Nanny Office Visit Reporton 10-02-2024 Bilingual Nanny Office Visit Report [facility], [address] [place] [address] OFFICE VISIT Date of Service: 10/02/24 MR#: [id number] Acct: [id number] Name: CLAUDIA FARFAN MARLENE Rep #: [id number] : 1995 Provider: Dr. 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 Normal [facility] Laboratory - Chemistry and C hemistry - challengeOrdered By: Gui Sloan on 09-20-2024 Glucose Ql (U) Negative [facility] Laboratory - UrinalysisOrder ed By: Gui Sloan on 09-20-2024 Protein Ql (U) Negative [facility] Bilingual Nanny Office Visit Reporton 09-20-2024 Bilingual Nanny Office Visit Report [facility] [address], [address] [place] [address] OFFICE VISIT Date of Service: 09/20/24 MR#: [id number] Acct: [id number] Name: CLAUDIA FARFAN MARLENE Rep #: [id number] : 1995 Provider: KAREEM head Age/Sex: 28/F Location: [facility] Status: Signed Intake Vital Signs 04/24/24 10:19 08/21/24 08:34 09/20/24 09:57 Height 5 ft 3 in 5 ft 3 in 5 ft 3 in Weight: 225 lb BMI 39.8 BP 108/66 Intake Visit Reasons: 30wk ob Chief Complaint: 30 Week OB Pocket Marker Required: No Is patient in pain?: No [...] 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 Normal [facility] Absolute lymphocyte countOrd ered By: Rina Mead on 08-21-2024 Lymphocytes Auto (Unsp spec) [#/Vol] 1.95 10*3/uL 0.83-4.51 [facility] Absolute neutrophil countOrd ered By: Rina Mead on 08-21-2024 Neutrophils (Bld) [#/Vol] 9.3 10*3/uL High 2.0-7.7 [facility] Automated lymphocyte count a s percentage of total leukocytesOrdered By: Rina Boston on 08-21-2024 Lymphocytes/100 WBC Auto (Unsp spec) 16.3 % Low 19-41 [facility] Basophil percentageOrdered B y: Rina Mead on 08-21-2024 Basophils/100 WBC (Bld) 0.3 % 0-1 [facility] CBC W/Diff, Automatedon Absolute Lymph 1.95 X10 3/uL Normal 0.83-4.51 [facility] Comment on above: Performed By: #### L 100.0100, L501.0250 ####[facility] [address] [place], [address] Absolute Neut 9.3 X10 3/uL High 2.0-7.7 [facility] Comment on above: Performed By: #### L 100.0100, L501.0250 ####[facility] [address] [place], [address] Basophils/100 WBC (Bld) 0.3 % Normal 0-1 [facility] Comment on above: Performed By: #### L 100.0100, L501.0250 ####[facility] [address] [place], [address] Eosinophils/100 WBC (Bld) 0.3 % Normal 0-5 [facility] Comment on above: Performed By: #### L 100.0100, L501.0250 ####[facility] [address] [place], [address] Erythrocyte distribution width (RBC) [Ratio] 13.1 % Normal 11.6-14.6 [facility] Comment on above: Performed By: #### L 100.0100, L501.0250 ####[facility] [address] [place], [address] Hematocrit (Bld) [Volume fraction] 38.4 % Normal 37-47 [facility] Comment on above: Performed By: #### L 100.0100, L501.0250 ####[facility] [address] [place], [address] Hemoglobin (Bld) [Mass/Vol] 12.7 g/dL Normal 12.0-15.0 [facility] Comment on above: Performed By: #### L 100.0100, L501.0250 ####[facility] [address] [place], [address] IG% 0.900 Normal 0.0-0.9 [facility] Comment on above: Result Comment: IG% - Immature Granulocytes (promyelocytes, myelocytes and metamyelocytes) > 1% indicates that a LEFT SHIFT is Present. Performed By: #### L 100.0100, L501.0250 ####[facility] [address] [place], [address] Lymphocytes/100 WBC (Bld) 16.3 % Low 19-41 [facility] Comment on above: Performed By: #### L 100.0100, L501.0250 ####[facility] [address] [place], [address] MCH (RBC) [Entitic mass] 29.6 pg Normal 27.0-32.0 [facility] Comment on above: Performed By: #### L 100.0100, L501.0250 ####[facility] [address] [place], [address] MCHC (RBC) [Mass/Vol] 33.1 g/dL Normal 32-36 [facility] Comment on above: Performed By: #### L 100.0100, L501.0250 ####[facility] [address] [place], [address] MCV (RBC) [Entitic vol] 89.5 fL Normal 81-99 [facility] Comment on above: Performed By: #### L 100.0100, L501.0250 ####[facility] [address] [place], [address] Monocytes/100 WBC (Bld) 5.1 % Normal 0-10 [facility] Comment on above: Performed By: #### L 100.0100, L501.0250 ####[facility] [address] [place], [address] Neutrophils/100 WBC (Bld) 77.1 % High 47-70 [facility] Comment on above: Performed By: #### L 100.0100, L501.0250 ####[facility] [address] [place], [address] Nucleated RBC (Bld) [#/Vol] 0 10*3/uL Normal 0-5 [facility] Comment on above: Performed By: #### L 100.0100, L501.0250 ####[facility] [address] [place], [address] Platelet mean volume (Bld) [Entitic vol] 12.1 fL High 6.2-12.0 [facility] Comment on above: Performed By: #### L 100.0100, L501.0250 ####[facility] [address] [place], [address] Platelets (Bld) [#/Vol] 234 10*3/uL Normal 150-450 [facility] Comment on above: Performed By: #### L 100.0100, L501.0250 ####[facility] [address] [place], [address] RBC (Bld) [#/Vol] 4.29 10*6/uL Normal 4.2-5.4 [facility] Comment on above: Performed By: #### L 100.0100, L501.0250 ####[facility] [address] [place], [address] RDW SD 42.9 fl Normal 35.1-43.9 [facility] Comment on above: Performed By: #### L 100.0100, L501.0250 ####[facility] [address] [place], [address] WBC (Bld) [#/Vol] 12.0 10*3/uL High 4.4-11.0 [facility] Comment on above: Performed By: #### L 100.0100, L501.0250 ####[facility] [address] [place], [address] Eosinophil percentageOrdered By: Rina Mead on 08-21-2024 Eosinophils/100 WBC (Bld) 0.3 % 0-5 [facility] Erythrocyte distribution wid th (RBC) [Ratio]Ordered By: Rina Mead on 08-21-2024 Erythrocyte distribution width (RBC) [Entitic vol] 42.9 fL 35.1-43.9 [facility] Erythrocyte distribution wid th ratioOrdered By: Rina Mead on 08-21-2024 Erythrocyte distribution width (RBC) [Ratio] 13.1 % 11.6-14.6 [facility] Erythrocyte distribution wid th standard deviationOrdered By: Rina Mead on 08-21-2024 Erythrocyte distribution width (RBC) [Ratio] 42.9 fl 35.1-43.9 [facility] Glucose Challenge Gest 1H 50 paola 08-21-2024 GLU GEST 50g 1H 111 mg/dL Normal 70-140 [facility] Comment on above: Performed By: #### L 100.0100, L501.0250 ####[facility] [address] [place], [address] Glucose measurement at 2 maciej rs post-dose gestational glucose tolerance testOrdered By: Rina Mead on 08-21-2024 Glucose [Mass/Vol] 111 mg/dL 70-140 [facility] HIVon 08-21-2024 HIV Non-Reactive Normal Nonreactive [facility] Comment on above: Result Comment: Non- Reactive Reactive Repeatedly reactive samples must be confirmed according to CDC recommended confirmatory algorithms. The subresults for either HIVAG or AHIV can be used as an aid in the selection of the confirmation algorithm for reactive samples. Send out specimens with Reactive results to [facility] for confirmation. Order the HIV antibody detection and differentiation: [id number] Performed By: #### L 3890.6006, L509.8002 ####[facility] [address] [place], [address] Hematocrit Auto (Bld) [Volum e fraction]Ordered By: Rina Mead on 08-21-2024 Hematocrit (Bld) [Volume fraction] 38.4 % 37-47 [facility] Hemoglobin measurementOrdere d By: Rina Mead on 08-21-2024 Hemoglobin (Bld) [Mass/Vol] 12.7 g/dL 12.0-15.0 [facility] Immature granulocytes/100 WB C Auto (Bld)Ordered By: Rina Mead on 08-21-2024 Immature granulocytes/100 WBC (Bld) 0.900 % 0.0-0.9 [facility] Comment on above: IG% - Immature Granu locytes (promyelocytes, myelocytes and metamyelocytes) > 1% indicates that a LEFT SHIFT is Present. Laboratory - Chemistry and C hemistry - challengeOrdered By: Penelope Yang on 08-21-2024 Glucose Ql (U) Negative [facility] Laboratory - UrinalysisOrder ed By: Penelope Yang on 08-21-2024 Protein Ql (U) Negative [facility] Lymphocytes Auto (Unsp spec) [#/Vol]Ordered By: Rina Mead on 08-21-2024 Lymphocytes (Bld) [#/Vol] 1.95 10*3/uL 0.83-4.51 [facility] Lymphocytes/100 WBC Auto (Un sp spec)Ordered By: Rina Mead on 08-21-2024 Lymphocytes/100 WBC (Bld) 16.3 % Low 19-41 [facility] MCV (mean corpuscular volume ) determinationOrdered By: Rina Mead on 08-21-2024 MCV (RBC) [Entitic vol] 89.5 fL 81-99 [facility] Mean corpuscular hemoglobin (MCH) determinationOrdered By: Rina Mead on 08-21-2024 MCH (RBC) [Entitic mass] 29.6 pg 27.0-32.0 [facility] Mean corpuscular hemoglobin concentration (MCHC) determinationOrdered By: Rina Mead on 08-21-2024 MCHC (RBC) [Mass/Vol] 33.1 g/dL 32-36 [facility] Mean platelet volume determi nationOrdered By: Rina Mead on 08-21-2024 Platelet mean volume (Bld) [Entitic vol] 12.1 fL High 6.2-12.0 [facility] Monocyte percentageOrdered B y: Rina Mead on 08-21-2024 Monocytes/100 WBC (Bld) 5.1 % 0-10 [facility] Neutrophil percentageOrdered By: Rina Mead on 08-21-2024 Neutrophils/100 WBC (Bld) 77.1 % High 47-70 [facility] No Panel InformationOrdered By: Penelope Yang on 08-21-2024 HIV (1&2) Antibody Non-Reactive Nonreactive [facility] Comment on above: Non-ReactiveReactive Repeatedly reactive samples must be confirmed according to CDC recommended confirmatory algorithms. The subresults for either HIVAG or AHIV can be used as an aid in the selection of the confirmation algorithm for reactive samples.Send out specimens with Reactive results to [facility] for confirmation.Order the HIV antibody detection and differentiation: #[id number] Nucleated red blood cell per centageOrdered By: Rina Mead on 08-21-2024 Nucleated RBC/100 WBC (Bld) [Ratio] 0 % 0-5 [facility] Bilingual Nanny Office Visit Reporton 08-21-2024 Bilingual Nanny Office Visit Report [facility] [address], [address] [place] [address] OFFICE VISIT Date of Service: 08/21/24 MR#: [id number] Acct: [id number] Name: CLAUDIA FARFAN Rep #: [id number] : 1995 Provider: Dr. 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 Normal [facility] Platelet countOrdered By: Yumi Mead on 08-21-2024 Platelets (Bld) [#/Vol] 234 10*3/uL 150-450 [facility] RBC Auto (Bld) [#/Vol]Ordere d By: Rina Mead on 08-21-2024 RBC (Bld) [#/Vol] 4.29 10*6/uL 4.2-5.4 [facility] Syphilis Antibodieson 2024 Syphilis Abs Non-Reactive Normal Nonreactive [facility] Comment on above: Performed By: #### L 3890.6006, L509.8002 ####[facility] [address] [place], [address] T. pallidum abOrdered By: Dheeraj Yang on 08-21-2024 Syphilis Total Antibody Non-Reactive Nonreactive [facility] White blood cell (WBC) count Ordered By: Rina Mead on 08-21-2024 WBC (Bld) [#/Vol] 12.0 10*3/uL High 4.4-11.0 [facility] Laboratory - Chemistry and C hemistry - challengeOrdered By: Rina Mead on 07-28-2024 Glucose Ql (U) Negative [facility] Laboratory - UrinalysisOrder ed By: Rina Mead on 07-28-2024 Protein Ql (U) Negative [facility] Bilingual Nanny Office Visit Reporton 07-28-2024 Bilingual Nanny Office Visit Report [facility] [address], [address] [place] [address] OFFICE VISIT Date of Service: 07/28/24 MR#: [id number] Acct: [id number] Name: CLAUDIA FARFAN Rep #: [id number] : 1995 Provider: DEEPAK lewis Age/Sex: 28/F Location: [facility] Status: Signed Intake Vital Signs 04/24/24 10:19 06/26/24 09:40 07/28/24 08:36 07/28/24 08:38 Height 5 ft 3 in 5 ft 3 in 5 ft 3 in 5 ft 3 in Weight: 222 lb BMI 39.3 BP 110/72 Intake Visit Reasons: 22wk ob Pocket Marker Required: No Is patient in pain?: No [...] 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 Date Name GA/Weeks Outcome Route Bth Weight Gen Labor Lgth Anesthesia [facility] Provider FOB 08/16/22 Singh 39 live - full term 7# 3oz Male [facility] KW/SM Delivery Date: 08/16/22 Last Updated by: [...] included)... Normal [facility] Laboratory - Chemistry and C hemistry - challengeOrdered By: Cristy Abreu on 06-26-2024 Glucose Ql (U) Negative [facility] Laboratory - UrinalysisOrder ed By: Cristy Abreu on 06-26-2024 Protein Ql (U) Negative [facility] Bilingual Nanny Office Visit Reporton 06-26-2024 Bilingual Nanny Office Visit Report [facility] [address], [address] [place] [address] OFFICE VISIT Date of Service: 06/26/24 MR#: [id number] Acct: [id number] Name: CLAUDIA FARFAN MARLENE Rep #: [id number] : 1995 Provider: DEEPAK Traylor ams Age/Sex: 28/F Location: [facility] Status: Signed Intake Vital Signs 04/24/24 10:19 [...] 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 Normal [facility] Laboratory - Chemistry and C hemistry - challengeon 05-24-2024 Glucose Ql (U) Negative [facility] Laboratory - Urinalysison Protein Ql (U) Negative [facility] Bilingual Nanny Office Visit Reporton 05-24-2024 Bilingual Nanny Office Visit Report [facility] [address], [address] [place] [address] OFFICE VISIT Date of Service: 05/24/24 MR#: [id number] Acct: [id number] Name: CLAUDIA FARFAN MARLENE Rep #: [id number] : 1995 Provider: KAREEM head Age/Sex: 28/F Location: [facility] Status: Signed Intake Vital Signs 03/12/23 14:17 04/24/24 10:19 05/24/24 08:31 Height 5 ft 3 in 5 ft 3 in 5 ft 3 in Weight: 216 lb BMI 38.2 BP 116/72 Intake Visit Reasons: 12wk OB Chief Complaint: 12 Week OB Pocket Marker Required: No Is patient in pain?: No [...] 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 Normal [facility] Chlamydia/GC ABBY aptimaon CHLAMY,NUC ACID Negative Normal Negative [facility] Comment on above: Performed By: #### L 7000.1800, M100.0 ####[facility] [address] [place], [address] GC BY NUC ACID Negative Normal Negative [facility] Comment on above: Result Comment: Perf ormed at: =G - [facility] [address] Tomas Meyers W [id number] Account Management Assistant: Elisabeth Bui MD, Phone: [phone] Performed By: #### L 0.1800, .0 ####[facility] [address] [place], [address] Urine Cultureon 04-25-2024 URC Culture exhibits no growth. Normal [facility] Comment on above: Performed By: #### L 0.1800, M1.0 ####[facility] [address] [place], [address] CBC W/Diff, Automatedon Absolute Lymph 2.41 X10 3/uL Normal 0.83-4.51 [facility] Comment on above: Performed By: #### L 509.4005, L3890.6300, BTS, L100.0100, L3890.6100, L509.8000, L3890.6005 #### [facility] Laboratory [address] [place], [address] Absolute Neut 7.3 X10 3/uL Normal 2.0-7.7 [facility] Comment on above: Performed By: #### L 509.4005, L3890.6300, BTS, L100.0100, L3890.6100, L509.8000, L3890.6005 #### [facility] [address] [place], [address] Basophils/100 WBC (Bld) 0.5 % Normal 0-1 [facility] Comment on above: Performed By: #### L 509.4005, L3890.6300, BTS, L100.0100, L3890.6100, L509.8000, L3890.6005 #### [facility] [address] [place], [address] Eosinophils/100 WBC (Bld) 0.4 % Normal 0-5 [facility] Comment on above: Performed By: #### L 509.4005, L3890.6300, BTS, L100.0100, L3890.6100, L509.8000, L3890.6005 #### [facility] [address] [place], [address] Erythrocyte distribution width (RBC) [Ratio] 12.2 % Normal 11.6-14.6 [facility] Comment on above: Performed By: #### L 509.4005, L3890.6300, BTS, L100.0100, L3890.6100, L509.8000, L3890.6005 #### [facility] [address] [place], [address] Hematocrit (Bld) [Volume fraction] 42.1 % Normal 37-47 [facility] Comment on above: Performed By: #### L 509.4005, L3890.6300, BTS, L100.0100, L3890.6100, L509.8000, L3890.6005 #### [facility] [address] [place], [address] Hemoglobin (Bld) [Mass/Vol] 14.3 g/dL Normal 12.0-15.0 [facility] Comment on above: Performed By: #### L 509.4005, L3890.6300, BTS, L100.0100, L3890.6100, L509.8000, L3890.6005 #### [facility] [address] [place], [address] IG% 0.800 Normal 0.0-0.9 [facility] Comment on above: Result Comment: IG% - Immature Granulocytes (promyelocytes, myelocytes and metamyelocytes) > 1% indicates that a LEFT SHIFT is Present. Performed By: #### L 509.4005, L3890.6300, BTS, L100.0100, L3890.6100, L509.8000, L3890.6005 #### [facility] [address] [place], [address] Lymphocytes/100 WBC (Bld) 22.8 % Normal 19-41 [facility] Comment on above: Performed By: #### L 509.4005, L3890.6300, BTS, L100.0100, L3890.6100, L509.8000, L3890.6005 #### [facility] Laboratory [address] [place], [address] MCH (RBC) [Entitic mass] 29.7 pg Normal 27.0-32.0 [facility] Comment on above: Performed By: #### L 509.4005, L3890.6300, BTS, L100.0100, L3890.6100, L509.8000, L3890.6005 #### [facility] Laboratory [address] [place], [address] MCHC (RBC) [Mass/Vol] 34.0 g/dL Normal 32-36 [facility] Comment on above: Performed By: #### L 509.4005, L3890.6300, BTS, L100.0100, L3890.6100, L509.8000, L3890.6005 #### [facility] [address] [place], [address] MCV (RBC) [Entitic vol] 87.3 fL Normal 81-99 [facility] Comment on above: Performed By: #### L 509.4005, L3890.6300, BTS, L100.0100, L3890.6100, L509.8000, L3890.6005 #### [facility] [address] [place], [address] Monocytes/100 WBC (Bld) 6.8 % Normal 0-10 [facility] Comment on above: Performed By: #### L 509.4005, L3890.6300, BTS, L100.0100, L3890.6100, L509.8000, L3890.6005 #### [facility] Laboratory [address] [place], [address] Neutrophils/100 WBC (Bld) 68.7 % Normal 47-70 [facility] Comment on above: Performed By: #### L 509.4005, L3890.6300, BTS, L100.0100, L3890.6100, L509.8000, L3890.6005 #### [facility] [address] [place], [address] Nucleated RBC (Bld) [#/Vol] 0 10*3/uL Normal 0-5 [facility] Comment on above: Performed By: #### L 509.4005, L3890.6300, BTS, L100.0100, L3890.6100, L509.8000, L3890.6005 #### [facility] [address] [place], [address] Platelet mean volume (Bld) [Entitic vol] 10.9 fL Normal 6.2-12.0 [facility] Comment on above: Performed By: #### L 509.4005, L3890.6300, BTS, L100.0100, L3890.6100, L509.8000, L3890.6005 #### [facility] [address] [place], [address] Platelets (Bld) [#/Vol] 293 10*3/uL Normal 150-450 [facility] Comment on above: Performed By: #### L 509.4005, L3890.6300, BTS, L100.0100, L3890.6100, L509.8000, L3890.6005 #### [facility] [address] [place], [address] RBC (Bld) [#/Vol] 4.82 10*6/uL Normal 4.2-5.4 [facility] Comment on above: Performed By: #### L 509.4005, L3890.6300, BTS, L100.0100, L3890.6100, L509.8000, L3890.6005 #### [facility] [address] [place], [address] RDW SD 38.8 fl Normal 35.1-43.9 [facility] Comment on above: Performed By: #### L 509.4005, L3890.6300, BTS, L100.0100, L3890.6100, L509.8000, L3890.6005 #### [facility] [address] [place], [address] WBC (Bld) [#/Vol] 10.6 10*3/uL Normal 4.4-11.0 [facility] Comment on above: Performed By: #### L 509.4005, L3890.6300, BTS, L100.0100, L3890.6100, L509.8000, L3890.6005 #### [facility] [address] [place], [address] HIV - WCHon 04-24-2024 HIV Non-Reactive Normal Nonreactive [facility] Comment on above: Order Comment: Reaso n for Exam: Performed By: #### L 509.4005, L3890.6300, BTS, L100.0100, L3890.6100, L509.8000, L3890.6005 ####[facility] [address] [place], [place], [address] Hepatitis B Surface Antigeno n 04-24-2024 HEP B Surf Ag Non-Reactive Normal Nonreactive [facility] Comment on above: Order Comment: Reaso n for Exam: Performed By: #### L 509.4005, L3890.6300, BTS, L100.0100, L3890.6100, L509.8000, L3890.6005 ####[facility] [address] [place], [place], [address] Hepatitis C Antibodyon 04-24 Hepatitis C AB Non-Reactive Normal Nonreactive [facility] Comment on above: Order Comment: Reaso n for Exam: Result Comment: Non Reactive: < 0.8 Equivocal: >/= 0.8 to < 1.0 Reactive: >/= 1.0 The CDC requires that a reactive/equivocal HCV antibody result be sent out for confirmation. HCV Quant by PCR testing. Performed By: #### L 509.4005, L3890.6300, BTS, L100.0100, L3890.6100, L509.8000, L3890.6005 ####[facility] [address] [place], [address] L509.8000on 04-24-2024 Syphilis Abs Non-Reactive Normal [facility] Comment on above: Order Comment: Reaso n for Exam: Performed By: #### L 509.4005, L3890.6300, BTS, L100.0100, L3890.6100, L509.8000, L3890.6005 ####[facility] [address] [place], [place], [address] Bilingual Nanny Office Visit Reporton 04-24-2024 Bilingual Nanny Office Visit Report [facility] [address], [address] [place] [address] OFFICE VISIT Date of Service: 04/24/24 MR#: [id number] Acct: [id number] Name: CLAUDIA FARFAN MARLENE Rep #: [id number] : 1995 Provider: Dr. 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 Normal [facility] Rubella IgGon 04-24-2024 Rubella IgG Reactive Normal Nonreactive [facility] Comment on above: Order Comment: Reaso n for Exam: Result Comment: Anti body Results Interpretation of Immune Status Non Reactive Presumed Non-Immune Equivocal Equivocal Reactive Presumed Immune Performed By: #### L 509.4005, L3890.6300, BTS, L100.0100, L3890.6100, L509.8000, L3890.6005 #### [facility] [address] [place], [place], [address] Type AND Screenon 04-24-2024 ABO and Rh group Nom (Bld) Blood group A Rh(D) positive Normal [facility] Comment on above: Order Comment: PN Performed By: #### L 509.4005, L3890.6300, BTS, L100.0100, L3890.6100, L509.8000, L3890.6005 #### [facility] [address] [place], [place], [address] CNOVon 03-17-2024 CNOV Office Visit (AGFAMP TUNG) ----- CLAUDIA FARFAN ([id number]) 1995 F Date Time Provider Department 03/17/24 [...] normal. J (more content not included)... Normal [facility] Tele[facility] (CATHY) ----- CLAUDIA FARFAN ([id number]) 1995 F Date Time Provider Department 02/16/24 [facility] During your visit today, we recorded the following information about you: Mitul Donohue MA 02/16/2024 2:44 PM Signed ----- Message from Hector Winchester APRN.FOURDRINIER MACHINE OPERATOR sent at 02/16/2024 2:41 PM EDT ----- Please notify patient results are normal. Thank you. Hector Winchester APRN.Mitul Rowe MA 02/16/2024 2:44 PM Signed Patient notified. Mitul Donohue MA Allergies As of Date: 02/16/2024 (No Known Allergies) Date Reviewed: 01/04/2024 Reviewed by: Hector Winchester APRN.FOURDRINIER MACHINE OPERATOR - Fully Assessed Reason for Visit: Results [95] Prescriptions as of 02/16/2024 - FLUoxetine (PROZAC) 40 mg capsule Take 1 capsule by mouth once daily. Problem List As Of Date 02/16/2024 Noted Resolved MADDIE (generalized anxiety disorder) [F41.1] 01/04/2024 Environmental allergies [Z91.09] Insulin resistance [E88.819] PCOS (polycystic ovarian syndrome) [E28.2] Encounter Status:Closed by MITUL DONOHUE on 02/16/24 Normal [facility] Urinalysis complete panel (U )on 02-15-2024 Bacteria LM.HPF (Urine sed) [#/Area] Negative Normal Negative [facility] Comment on above: Order Comment: Speci men Type: URINE SPECIMEN Ordering Facility: [facility] Address: [address] [place] [address] Performed By: #### 2 4356-8 #### [facility] CLIA [id number] [address] [place] [address] [place] Bilirubin Ql (U) Negative Normal Negative [facility] Comment on above: Order Comment: Speci men Type: URINE SPECIMEN Ordering Facility: [facility] Address: [address] [place] [address] Performed By: #### 2 4356-8 #### [facility] CLIA [id number] [address] [place] [address] [place] Clarity (Unsp spec) Clear Normal Clear [facility] Comment on above: Order Comment: Speci men Type: URINE SPECIMEN Ordering Facility: [facility] Address: [address] [place] [address] Performed By: #### 2 4356-8 #### [facility] CLIA [id number] [address] [place] [address] [place] Color (U) Yellow Normal Yellow [facility] Comment on above: Order Comment: Speci men Type: URINE SPECIMEN Ordering Facility: [facility] Address: [address] [place] [address] Performed By: #### 2 4356-8 #### [facility] CLIA [id number] [address] [place] [address] [place] Epithelial cells LM.HPF (Urine sed) [#/Area] None Seen Normal [facility] Comment on above: Order Comment: Speci men Type: URINE SPECIMEN Ordering Facility: [facility] Address: [address] [place] [address] Performed By: #### 2 4356-8 #### [facility] CLIA [id number] [address] [place] [address] [place] Glucose Test strip (U) [Mass/Vol] Negative Normal Negative [facility] Comment on above: Order Comment: Speci men Type: URINE SPECIMEN Ordering Facility: [facility] Address: [address] [place] [address] Performed By: #### 2 4356-8 #### [facility] CLIA [id number] [address] [place] [address] [place] Hemoglobin Ql (U) Negative Normal Negative [facility] Comment on above: Order Comment: Speci men Type: URINE SPECIMEN Ordering Facility: [facility] Address: [address] [place] [address] Performed By: #### 2 4356-8 #### [facility] CLIA [id number] [address] [place] [address] [place] Hyaline casts (Urine sed) [#/Area] 0 /[LPF] Normal 0 /LPF [facility] Comment on above: Order Comment: Speci men Type: URINE SPECIMEN Ordering Facility: [facility] Address: [address] [place] [address] Performed By: #### 2 4356-8 #### [facility] CLIA [id number] [address] [place] [address] [place] Ketones Ql (U) Negative Normal Negative [facility] Comment on above: Order Comment: Speci men Type: URINE SPECIMEN Ordering Facility: [facility] Address: [address] [place] [address] Performed By: #### 2 4356-8 #### [facility] CLIA [id number] [address] [place] [address] [place] Leukocyte esterase Test strip Ql (U) Trace Abnormal Negative [facility] Comment on above: Order Comment: Speci men Type: URINE SPECIMEN Ordering Facility: [facility] Address: [address] [place] [address] Performed By: #### 2 4356-8 #### [facility] CLIA [id number] [address] [place] [address] [place] Nitrite Ql (U) Negative Normal Negative [facility] Comment on above: Order Comment: Speci men Type: URINE SPECIMEN Ordering Facility: [facility] Address: [address] [place] [address] Performed By: #### 2 4356-8 #### [facility] CLIA [id number] [address] [place] [address] [place] pH (U) 7.0 [pH] Normal <8.5 [facility] Comment on above: Order Comment: Speci men Type: URINE SPECIMEN Ordering Facility: [facility] Address: [address] [place] [address] Performed By: #### 2 4356-8 #### [facility] CLIA [id number] [address] [place] [address] [place] Protein (U) [Mass/Vol] Negative Normal Negative [facility] Comment on above: Order Comment: Speci men Type: URINE SPECIMEN Ordering Facility: [facility] Address: [address] [place] [address] Performed By: #### 2 4356-8 #### [facility] CLIA [id number] [address] [place] [address] [place] RBC LM.HPF (Urine sed) [#/Area] 0-2 /HPF Normal 0-2 /HPF [facility] Comment on above: Order Comment: Speci men Type: URINE SPECIMEN Ordering Facility: [facility] Address: [address] [place] [address] Performed By: #### 2 4356-8 #### [facility] CLIA [id number] [address] [place] [address] [place] Specific gravity (U) [Rel density] 1.021 Normal 1.005-1.030 [facility] Comment on above: Order Comment: Speci men Type: URINE SPECIMEN Ordering Facility: [facility] Address: [address] [place] [address] Performed By: #### 2 4356-8 #### [facility] CLIA [id number] [address] [place] [address] [place] Urobilinogen Ql (U) 0.2 EU/dL Normal 0.2-1.0 EU/dL [facility] Comment on above: Order Comment: Speci men Type: URINE SPECIMEN Ordering Facility: [facility] Address: [address] [place] [address] Performed By: #### 2 4356-8 #### [facility] CLIA [id number] [address] [place] [address] [place] WBC LM.HPF (Urine sed) [#/Area] 0-5 /HPF Normal 0-5 /HPF [facility] Comment on above: Order Comment: Speci men Type: URINE SPECIMEN Ordering Facility: [facility] Address: [address] [place] [address] Performed By: #### 2 4356-8 #### [facility] CLIA [id number] [address] [place] [address] [place] CNOVon 01-04-2024 CNMCKENNA Office Visit (PARKER [place]BY) ----- CLAUDIA FARFAN ([id number]) 1995 F Date Time Provider Department 01/04/24 11:20 AM [facility] [place] During your visit today, we recorded the following information about you: Temperature Pulse Blood pressure Weight 98.3 degrees 73/minute 110/70 100.2 kg Height 1.6 m Hector 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 Normal [facility] Absolute lymphocyte countOrd ered By: ED PROVIDER on 03-12-2023 Lymphocytes Auto (Unsp spec) [#/Vol] 2.17 10*3/uL 0.83-4.51 [facility] Basophil percentageOrdered B y: Jaylan Pedroza on 03-12-2023 Basophil percentage 0 SEEN /hpf 0-5 [facility] Bilirubin [Mass/Vol] 0.60 mg/dL 0.20-1.00 [facility] Comment on above: For patients on eltr ombopag therapy, use of Dimension [place] TBIL is not recommended. Chloride [Moles/Vol] 106 mmol/L 98-107 [facility] Glucose [Mass/Vol] 120 mg/dL 74-106 [facility] Comment on above: Fasting Glucose resu lt from 100 to 125 mg/dL suggests IMPAIRED HOMEOSTASIS per A.D.A. criteria. Potassium [Moles/Vol] 3.5 mmol/L 3.5-5.1 [facility] Protein [Mass/Vol] 7.6 g/dL 6.4-8.2 [facility] Sodium [Moles/Vol] 139 mmol/L 136-145 [facility] Basophil percentageOrdered B y: ED PROVIDER on 03-12-2023 Basophils/100 WBC (Bld) 0.4 % 0-1 [facility] Eosinophils/100 WBC (Bld) 1.0 % 0-5 [facility] Neutrophils (Bld) [#/Vol] 13.4 10*3/uL 2.0-7.7 [facility] Neutrophils/100 WBC (Bld) 79.3 % 47-70 [facility] WBC (Bld) [#/Vol] 16.9 10*3/uL 4.4-11.0 [facility] Beta hCG serum qualOrdered B y: Jaylan Pedroza on 03-12-2023 Beta HCG ( test) Ql Negative [facility] Bilirubin Test strip Ql (U)O rdered By: Jaylan Pedroza on 03-12-2023 Bilirubin Ql (U) Negative Negative [facility] Blood erythrocytes count (nu mber/volume)Ordered By: ED PROVIDER on 03-12-2023 RBC (Bld) [#/Vol] 4.92 10*6/uL 4.2-5.4 [facility] Blood hemoglobin measurement (mass/volume)Ordered By: ED PROVIDER on 03-12-2023 Hemoglobin (Bld) [Mass/Vol] 14.0 g/dL 12.0-15.0 [facility] Blood lymphocytes/100 leukoc ytesOrdered By: ED PROVIDER on 03-12-2023 Lymphocytes/100 WBC (Bld) 12.8 % 19-41 [facility] Blood monocytes/100 leukocyt esOrdered By: ED PROVIDER on 03-12-2023 Monocytes/100 WBC (Bld) 6.1 % 0-10 [facility] Blood platelet mean volumeOr dered By: ED PROVIDER on 03-12-2023 Platelet mean volume (Bld) [Entitic vol] 10.5 fL 6.2-12.0 [facility] Determination of erythrocyte mean corpuscular volume (MCV)Ordered By: ED PROVIDER on 03-12-2023 MCV (RBC) [Entitic vol] 86.0 fL 81-99 [facility] Hematocrit Auto (Bld) [Volum e fraction]Ordered By: ED PROVIDER on 03-12-2023 Hematocrit (Bld) [Volume fraction] 42.3 % 37-47 [facility] Ketones Test strip Ql (U)Ord ered By: Jaylan Pedroza on 03-12-2023 Ketones Ql (U) Negative Negative [facility] - Chemistry and C hemistry - challengeOrdered By: Jaylan Pedroza on 03-12-2023 ALP [Catalytic activity/Vol] 91 U/L 45-117 [facility] ALT [Catalytic activity/Vol] 36 U/L 13-56 [facility] CO2 [Moles/Vol] 24.0 mmol/L 21.0-32.0 [facility] Globulin (S) [Mass/Vol] 4.0 g/dL 2.2-4.2 [facility] Lipase [Catalytic activity/Vol] 50 U/L 13-75 [facility] Comment on above: Please note:LIPASE r evised reference range effective 22. New Lipase methodology. Expected to produce lower values than the previous assay method. NEW Reference Range: 13 - 75 U/L Urea nitrogen/Creatinine [Mass ratio] 20.0 mg/mg 10-20 [facility] - Hematology and Cell countsOrdered By: ED PROVIDER on 03-12-2023 Erythrocyte distribution width (RBC) [Entitic vol] 39.1 fL 35.1-43.9 [facility] Erythrocyte distribution width (RBC) [Ratio] 12.6 % 11.6-14.6 [facility] Immature granulocytes/100 WBC (Bld) 0.400 % 0.0-0.9 [facility] Comment on above: IG% - Immature Granu locytes (promyelocytes, myelocytes and metamyelocytes) > 1% indicates that a LEFT SHIFT is Present. MCH (RBC) [Entitic mass] 28.5 pg 27.0-32.0 [facility] Nucleated RBC/100 WBC (Bld) [Ratio] 0 % 0-5 [facility] MCHC Auto (RBC) [Mass/Vol]Or dered By: ED PROVIDER on 03-12-2023 MCHC (RBC) [Mass/Vol] 33.1 g/dL 32-36 [facility] Mucus LM Ql (Urine sed)Order ed By: Jaylan Pedroza on 03-12-2023 Mucus Ql (Urine sed) 0 SEEN /hpf [facility] Nitrite Test strip Ql (U)Ord ered By: Jaylan Pedroza on 03-12-2023 Nitrite Ql (U) Negative Negative [facility] No Panel InformationOrdered By: Jaylan Pedroza on 03-12-2023 Estimated Creatinine Clearance Calc 69.90 ml/min [facility] Estimated GFR (MDRD) Amer 86 mL/min >60 [facility] Comment on above: GFR Calc Estimated GFR (MDRD) Non-Af Amer 71 mL/min >60 [facility] Comment on above: Non- GFR Calc Platelets bldOrdered By: ED PROVIDER on 03-12-2023 Platelets (Bld) [#/Vol] 330 10*3/uL 150-450 [facility] Protein Test strip Ql (U)Ord ered By: Jaylan Pedroza on 03-12-2023 Protein Ql (U) Negative Negative [facility] Serum or plasma albumin jay urement (mass/volume)Ordered By: Jaylan Pedroza on 03-12-2023 Albumin [Mass/Vol] 3.6 g/dL 3.2-5.0 [facility] Serum or plasma albumin/glob ulin mass ratioOrdered By: Jaylan Pedroza on 03-12-2023 Albumin/Globulin [Mass ratio] 0.9 {ratio} 0.9-2.4 [facility] Serum or plasma calcium jay urement (mass/volume)Ordered By: Jaylan Pedroza on 03-12-2023 Calcium [Mass/Vol] 8.9 mg/dL 8.5-10.1 [facility] Serum or plasma creatinine m easurement (mass/volume)Ordered By: Jaylan Pedroza on 03-12-2023 Creatinine [Mass/Vol] 1.00 mg/dL 0.55-1.02 [facility] Comment on above: The validity of the calculated GFR & GFRAA in patients over 70 years has not been determined. Clinical correlation is essential. Serum or plasma urea nitroge n measurement (mass/volume)Ordered By: Jaylan Pedroza on 03-12-2023 Urea nitrogen [Mass/Vol] 20 mg/dL 7-18 [facility] Squamous epithelial cells de tection in urine sediment by light microscopyOrdered By: Jaylan Pedroza on 03-12-2023 Epithelial cells.squamous LM Ql (Urine sed) 0-5 SEEN /hpf 5-10 [facility] Thin prep Papanicolaou smear with manual screeningOrdered By: Jaylan Pedroza on 03-12-2023 Thin prep Papanicolaou smear with manual screening 43 U/L 15-37 [facility] Thin prep Papanicolaou smear with manual screening 9 5-15 [facility] Urine blood detectionOrdered By: Jaylan Pedroza on 03-12-2023 RBC Ql (U) Negative Negative [facility] RBC Ql (U) 0 SEEN /hpf 0-5 [facility] Urine clarityOrdered By: Cheryle Pedroza on 03-12-2023 Clarity (U) Clear Clear [facility] Urine color determinationOrd ered By: Jaylan Pedroza on 03-12-2023 Color (U) Yellow Yellow [facility] Urine glucose detectionOrder ed By: Jaylan Pedroza on 03-12-2023 Glucose Ql (U) Normal mg/dl Normal [facility] Urine leukocyte esterase det ection by dipstickOrdered By: Jaylan Pedroza on 03-12-2023 Leukocyte esterase Test strip Ql (U) Negative Negative [facility] Urine pHOrdered By: Jaylan vang on 03-12-2023 pH (U) 7.0 [pH] 5.0 - 8.0 [facility] Urine sediment bacteria coun t by microscopy (number/high power field)Ordered By: Jaylan Pedroza on 03-12-2023 Bacteria LM.HPF (Urine sed) [#/Area] 0 /[HPF] None Seen [facility] Urine specific gravity measu rementOrdered By: Jaylan Pedroza on 03-12-2023 Specific gravity (U) [Rel density] 1.005 1.002-1.030 [facility] Urobilinogen Auto test strip Ql (U)Ordered By: Jaylan Pedroza on 03-12-2023 Urobilinogen Ql (U) Normal mg/dl Normal [facility] Laboratory - Chemistry and C hemistry - challengeOrdered By: Vincent Blake on 03-02-2023 HCG ( test) Ql (U) Negative [facility] Comment on above: Very dilute urine sp ecimens, as indicated by a low specificgravity, may not contain patient intake representative levels of hCG. If is still suspected, a first morning urinespecimen should be collected 48 hours later and tested. BASIC METABOLIC PANELon Anion gap [Moles/Vol] 13 mmol/L Normal 10 - 20 [facility] Comment on above: Order Comment: RESUL TS RB TO HANK GATES, 10/18/2022 00:36 Performed By: #### U ARFX #### [address] [address] Potassium [Moles/Vol] 2.9 mmol/L Critically low 3.5 - 5.[address] [facility] Comment on above: Order Comment: RESUL TS RB TO HANKMOHSEN GATES, 10/18/2022 00:36 Result Comment: Conf irmed by repeat analysis RESULTS RB TO HANKMOHSEN GATES, 10/18/2022 00:36 Performed By: #### U ARFX #### [address] [address] Calcium [Mass/Vol] 9.6 mg/dL Normal 8.6 - 10.3 [facility] Comment on above: Order Comment: RESUL TS RB TO HANK GATES, 10/18/2022 00:36 Performed By: #### U ARFX #### [address] [address] Chloride [Moles/Vol] 103 mmol/L Normal 98 - 107 [facility] Comment on above: Order Comment: RESUL TS RB TO HANK GATES, 10/18/2022 00:36 Performed By: #### U ARFX #### [address] [address] Creatinine [Mass/Vol] 1.02 mg/dL Normal 0.50 - 1.05 [facility] Comment on above: Order Comment: RESUL TS RB TO HANK GATES, 10/18/2022 00:36 Performed By: #### U ARFX #### [address] [address] GFR/1.73 sq M.predicted among non-blacks MDRD (S/P/Bld) [Vol rate/Area] 77 mL/min/{1.73_m2} Normal >[address] [facility] Comment on above: Order Comment: RESUL TS RB TO HANK DUBON, 10/18/2022 00:36 Result Comment: CALC ULATIONS OF ESTIMATED GFR ARE PERFORMED USING THE 2020 CKD-EPI STUDY REFIT EQUATION WITHOUT THE RACE VARIABLE FOR THE IDMS-TRACEABLE CREATININE METHODS. https://jasn.asnjournals.org/content/early//ASN.43266 01587 Performed By: #### U ARFX #### [address] [address] Glucose [Mass/Vol] 98 mg/dL Normal 74 - 99 [facility] Comment on above: Order Comment: RESUL TS RB TO HANKMOHSEN GATES, 10/18/2022 00:36 Performed By: #### U ARFX #### [address] [address] HCO3 (Bld) [Moles/Vol] 26 mmol/L Normal 21 - 32 [facility] Comment on above: Order Comment: RESUL TS RB TO HANK GATES, 10/18/2022 00:36 Performed By: #### U ARFX #### [address] [address] Sodium [Moles/Vol] 139 mmol/L Normal 136 - 145 [facility] Comment on above: Order Comment: RESUL TS RB TO HANK GATES, 10/18/2022 00:36 Performed By: #### U ARFX #### [address] [address] Urea nitrogen [Mass/Vol] 21 mg/dL Normal 6 - [address] [facility] Comment on above: Order Comment: RESUL TS RB TO HANK DUBON, 10/18/2022 00:36 Performed By: #### U ARFX #### [address] [id number] CBC AND DIFFERENTIALon 10-18 % AUTOMATED IMMATURE GRAN 0.4 % Normal 0.0 - 0.[address] [facility] Comment on above: Result Comment: Dione ture Granulocyte Count (IG) includes promyelocytes, myelocytes and metamyelocytes but does not include bands. Percent differential counts (%) should be interpreted in the context of the absolute cell counts (cells/L). Performed By: #### C BCDF #### [address] [id number] DIFFERENTIAL SEE MANUAL DIFF Normal [facility] Comment on above: Performed By: #### C BCDF #### [address] [id number] Erythrocyte distribution width (RBC) [Ratio] 12.7 % Normal 11.5 - 14.[address] [facility] Comment on above: Performed By: #### C BCDF #### [address] [id number] Hematocrit (Bld) [Volume fraction] 44.4 % Normal 36.0 - 46.[address] [facility] Comment on above: Performed By: #### C BCDF #### [address] [id number] Hemoglobin (Bld) [Mass/Vol] 14.7 g/dL Normal 12.0 - 16.[address] [facility] Comment on above: Performed By: #### C BCDF #### [place] [id number] MCHC (RBC) [Mass/Vol] 33.1 g/dL Normal 32.0 - 36.0 [facility] Comment on above: Performed By: #### C BCDF #### [place] [id number] MCV (RBC) [Entitic vol] 86 fL Normal 80 - [address] [facility] Comment on above: Performed By: #### C BCDF #### [place] [id number] Platelets (Bld) [#/Vol] 310 10*3/uL Normal 150 - [address] [facility] Comment on above: Performed By: #### C BCDF #### [address] [address] RBC 5.17 x10E12/L Normal 4.00 - 5.[address] [facility] Comment on above: Performed By: #### C BCDF #### [address] [address] WBC (Bld) [#/Vol] 11.3 10*3/uL Normal 4.4 - 11.3 [facility] Comment on above: Performed By: #### C BCDF #### [address] [address] [address] ABDOMEN AND PELVIS W IV C ONTRASTon 10-18-2022 CT ABDOMEN AND PELVIS W IV CONTRAST Patient Name: CLAUDIA FARFAN STUDY: CT ABDOMEN AND PELVIS W IV CONTRAST; 10/18/2022 1:00 am INDICATION: Acute abdominal pain . COMPARISON: CT abdomen pelvis 07/17/2017 ACCESSION NUMBER(S): [id number] ORDERING CLINICIAN: ANA SHABAZZ TECHNIQUE: Axial CT [...] Electronically signed by: NILSA MANN MD Normal [facility] HEPATIC FUNCTION PANELon Albumin [Mass/Vol] 4.4 g/dL Normal 3.4 - 5.0 [facility] Comment on above: Performed By: #### H EPFP #### [place] [address] ALP [Catalytic activity/Vol] 85 U/L Normal 33 - [address] [facility] Comment on above: Performed By: #### H EPFP #### [place] [id number] ALT [Catalytic activity/Vol] 20 U/L Normal 7 - [address] [facility] Comment on above: Result Comment: Caryl ents treated with Sulfasalazine may generate falsely decreased results for ALT. Performed By: #### H EPFP #### [place] [id number] AST [Catalytic activity/Vol] 26 U/L Normal 9 - [address] [facility] Comment on above: Performed By: #### H EPFP #### [address] [address] Bilirubin [Mass/Vol] 0.4 mg/dL Normal 0.0 - 1.2 [facility] Comment on above: Performed By: #### H EPFP #### [address] [address] Bilirubin.indirect [Mass/Vol] 0.1 mg/dL Normal 0.0 - 0.[address] [facility] Comment on above: Performed By: #### H EPFP #### [address] [address] Protein [Mass/Vol] 7.6 g/dL Normal 6.4 - 8.2 [facility] Comment on above: Performed By: #### H EPFP #### [address] [address] LACTATEon 10-18-2022 Lactate [Moles/Vol] 1.5 mmol/L Normal 0.4 - 2.0 [facility] Comment on above: Result Comment: Julia puncture immediately after or during the administration of Metamizole may lead to falsely low results. Testing should be performed immediately prior to Metamizole dosing. Performed By: #### L ACT #### [address] [address] Lactate [Moles/Vol] 2.8 mmol/L High 0.4 - 2.0 [facility] Comment on above: Result Comment: Julia puncture immediately after or during the administration of Metamizole may lead to falsely low results. Testing should be performed immediately prior to Metamizole dosing. Performed By: #### L ACT #### [address] [address] LIPASEon 10-18-2022 Lipase [Catalytic activity/Vol] 37 U/L Normal 9 - [address] [facility] Comment on above: Result Comment: Julia puncture immediately after or during the administration of Metamizole may lead to falsely low results. Testing should be performed immediately prior to Metamizole dosing. N-jqocly-j-benzoquinone imine (metabolite of Acetaminophen) will generate erroneously low results in samples for patients that have taken toxic doses of acetaminophen. Performed By: #### L IPAS #### [address] [address] MANUAL DIFFERENTIALon 2022 % BAND NEUTROPHIL 2.0 % Normal 0.0 - 5.0 [facility] Comment on above: Performed By: #### M DIFF #### [address] [address] % BASOPHIL 0.0 % Normal 0.0 - 2.[address] [facility] Comment on above: Performed By: #### M DIFF #### [address] [address] % EOSINOPHIL 1.0 % Normal 0.0 - 6.[address] [facility] Comment on above: Performed By: #### M DIFF #### [address] [address] % LYMPH-ATYPICAL 14.0 % Normal 0.0 - 2.0 [facility] Comment on above: Performed By: #### M DIFF #### [address] [address] % LYMPHOCYTE 31.0 % Normal 13.0 - 44.[address] [facility] Comment on above: Performed By: #### M DIFF #### [address] [address] % MONOCYTE 5.0 % Normal 2.0 - 10.[address] [facility] Comment on above: Performed By: #### M DIFF #### [address] [address] % SEG NEUTROPHIL 47.0 % Normal 40.0 - 80.0 [facility] Comment on above: Result Comment: Perc ent differential counts (%) should be interpreted in the context of the absolute cell counts (cells/L). Performed By: #### M DIFF #### [address] [address] ANC 5.54 x10E9/L Normal 1.20 - 7.[address] [facility] Comment on above: Performed By: #### M DIFF #### [address] [address] BAND NEUTROPHIL 0.23 x10E9/L Normal 0.00 - 0.70 [facility] Comment on above: Performed By: #### M DIFF #### [address] [address] BASOPHIL 0.00 x10E9/L Normal 0.00 - 0.[address] [facility] Comment on above: Performed By: #### M DIFF #### [address] [address] EOSINOPHIL 0.11 x10E9/L Normal 0.00 - 0.[address] [facility] Comment on above: Performed By: #### M DIFF #### [address] [address] LYMPH-ATYPICAL 1.58 x10E9/L High 0.00 - 0.50 [facility] Comment on above: Performed By: #### M DIFF #### [address] [address] LYMPHOCYTE 3.50 x10E9/L Normal 1.20 - 4.[address] [facility] Comment on above: Performed By: #### M DIFF #### [address] [address] MONOCYTE 0.57 x10E9/L Normal 0.10 - 1.[address] [facility] Comment on above: Performed By: #### M DIFF #### [address] [address] SEG NEUTROPHIL 5.31 x10E9/L Normal 1.20 - 7.00 [facility] Comment on above: Performed By: #### M DIFF #### [address] [address] Provider Note - ED v3on 06-0 Provider [...] Reference Range: STRAW,YELLOW Appearance, Urine HAZY Specific [place], Urine 1.047 H pH, Urine 6.0 Protein, Urine 30(1+) A Glucose, Urine NEGATIVE Blood, Urine LARGE(3+) A Ketones, Urine NEGATIVE Bilirubin, Urine NEGATIVE Urobilinogen, Urine <2.0 Nitrite, Urine Negative Leukocyte Esterase, Urine TRACE A Urinalysis, Microscopic 18-Oct-2022 03:41:00 ResultValue White Cells 2 Red Blood Cells >182 A Epithelial Cells, Squamous 4 Lactate, Level Trending View [id number] 03:39:00 17-Oct-2022 23:54:00 Lactate, Level1.5 2.8 H [...] Dixon sign is reported negative by the digital cartographic technician. Ultrasound Gallbladder [Oct 18 2022 2:49AM] Impression: Gallbladder wall thickening with pericholecystic fluid. Findings can be seen with acute cholecystitis. Correlate with laboratory (more content not included)... Normal [facility] RED CELL MORPHOLOGYon 2022 RBC morphology finding Nom (Bld) SEE COMMENT Normal [facility] Comment on above: Result Comment: NO S IGNIFICANT RBC ABNORMALITIES SEEN ON SMEAR REVIEW. Performed By: #### U ARFX #### [id number] [place] [address] Risk Screen - Adult Emergenc yon 10-18-2022 Risk Screen - Adult Emergency Preferred Language: Preferred Language: Preferred Language for Discussing Health Care (patient/designee)Macanese Patient Preferred Pharmacy: Patient Preferred Pharmacy Statement: [...] Learning Preferencesverbal instruction Cultural Considerationsnone Developmental Considerationsnone Yazdanism Considerationsnone Learning Assessment (Other Learner): Learning Assessment (Other Learner): Other learner availableno Pressure Injury/TB/Substance: Pressure Injury: Pressure Injury Present on Admissionno Do you have a coughno Smoking Statusnever smoker Alcohol Usedenies Drug Usedenies Admission Risk Screen: Significant IndicatorsComplete CAGE: CAGE: Is this an injured patient at a Trauma Center [place]/[place]/ [place]): no Electronic Signatures: Renata Alan (MANUEL) (Signed 17-Oct-2022 23:35) Authored: Preferred Language, Patient Preferred Pharmacy, Advanced Directives, Family Violence Adult, Learning Assessment (Patient), Learning Assessment (Other Learner), Pressure Injury/TB/Substance, Pressure Injury, CAGE Last Updated: 17-Oct-2022 23:35 by Renata Alan (MANUEL) [facility] Triage - EDon 10-18-2022 Triage - [...] Accompanied By: parent Language: Spoken Language Preferred: Macanese CHIEF COMPLAINT CLAUDIA FARFAN is a Female [...] obeys commands Best Verbal Response: (V5) oriented Montgomery Score: 15 Allergies: no Last menstrual period: [...] 17-Oct-2022 23:34 by Renata Alan (MANUEL) Normal [facility] UA MICROSCOPICon 10-18-2022 RBC (U) [#/Vol] /uL Abnormal 0-[address] [facility] Comment on above: Performed By: #### U AMIC #### [address] [address] SQUAMOUS EPITH. CELLS 4 /HPF Normal [facility] Comment on above: Performed By: #### U AMIC #### [place] [id number] WBC 2 /HPF Normal 0-[address] [facility] Comment on above: Performed By: #### U AMIC #### [place] [address] URINALYSIS WITH CULTURE IF I NDICATEDon 10-18-2022 Appearance (U) HAZY Normal CLEAR [facility] Comment on above: Performed By: #### U ARFX #### [place] [address] Bilirubin Ql (U) Negative Normal NEGATIVE [facility] Comment on above: Performed By: #### U ARFX #### [place] [address] Color (U) Yellow Normal STRAW,YELLOW [facility] Comment on above: Performed By: #### U ARFX #### [place] [address] Glucose Ql (U) Negative Normal NEGATIVE [facility] Comment on above: Performed By: #### U ARFX #### [place] [address] Hemoglobin Ql (U) LARGE(3+) Abnormal NEGATIVE [facility] Comment on above: Performed By: #### U ARFX #### [place] [address] Ketones Ql (U) Negative Normal NEGATIVE [facility] Comment on above: Performed By: #### U ARFX #### [place] [address] Leukocyte esterase Test strip Ql (U) TRACE Abnormal NEGATIVE [facility] Comment on above: Performed By: #### U ARFX #### [place] [address] Nitrite Ql (U) Negative Normal NEGATIVE [facility] Comment on above: Performed By: #### U ARFX #### [address] [address] pH (U) 6.0 [pH] Normal 5.0 - 8.[address] [facility] Comment on above: Performed By: #### U ARFX #### [address] [address] Protein Ql (U) 30(1+) Abnormal NEGATIVE [facility] Comment on above: Performed By: #### U ARFX #### [address] [address] Specific gravity (U) [Rel density] 1.047 High 1.005 - 1.[address] [facility] Comment on above: Performed By: #### U ARFX #### [address] [address] Urobilinogen (U) [Mass/Vol] mg/dL Normal 0.0 - 1.[address] [facility] Comment on above: Performed By: #### U ARFX #### [place] [id number] URINE CULTURE,BACTERIALon URINE CULTURE,BACTERIAL PATIENT: CLAUDIA FARFAN [facility] [id number] : 89 AGE: SEX: F ORDERED BY: [...] DEPENDENT NS=NONSUSCEPTIBLE X=REPORTED IN ERROR ___ Normal [facility] Comment on above: Performed By: #### U RIN #### [facility] [address] [place] [address] US GALLBLADDERon 10-18-2022 US GALLBLADDER Patient Name: CLAUDIA FARFAN STUDY: US GALLBLADDER; 10/18/2022 2:41 am INDICATION: Right upper quadrant pain . COMPARISON: CT scan of the abdomen pelvis 10/18/2022 ACCESSION NUMBER(S): [id number] ORDERING CLINICIAN: ANA SHABAZZ TECHNIQUE: Grayscale and [...] Dixon sign is reported negative by the digital cartographic technician. Electronically signed by: ISAAC BELTRE MD [facility] Absolute lymphocyte countOrd ered By: Cristy Abreu on 08-16-2022 Lymphocytes Auto (Unsp spec) [#/Vol] 2.54 10*3/uL 0.83-4.51 [facility] Basophil percentageOrdered B y: Cristy Abreu on 08-16-2022 Basophils/100 WBC (Bld) 0.3 % 0-1 [facility] Eosinophils/100 WBC (Bld) 0.5 % 0-5 [facility] Neutrophils (Bld) [#/Vol] 8.2 10*3/uL 2.0-7.7 [facility] Neutrophils/100 WBC (Bld) 70.3 % 47-70 [facility] WBC (Bld) [#/Vol] 11.7 10*3/uL 4.4-11.0 [facility] Blood erythrocytes count (nu mber/volume)Ordered By: Cristy Abreu on 08-16-2022 RBC (Bld) [#/Vol] 4.50 10*6/uL 4.2-5.4 [facility] Blood hemoglobin measurement (mass/volume)Ordered By: Cristy Abreu on 08-16-2022 Hemoglobin (Bld) [Mass/Vol] 13.2 g/dL 12.0-15.0 [facility] Blood lymphocytes/100 leukoc ytesOrdered By: Cristy Abreu on 08-16-2022 Lymphocytes/100 WBC (Bld) 21.7 % 19-41 [facility] Blood monocytes/100 leukocyt esOrdered By: Cristy Abreu on 08-16-2022 Monocytes/100 WBC (Bld) 6.8 % 0-10 [facility] Blood platelet mean volumeOr dered By: Cristy Abreu on 08-16-2022 Platelet mean volume (Bld) [Entitic vol] 12.4 fL 6.2-12.0 [facility] Determination of erythrocyte mean corpuscular volume (MCV)Ordered By: Cristy Abreu on 08-16-2022 MCV (RBC) [Entitic vol] 87.3 fL 81-99 [facility] Hematocrit Auto (Bld) [Volum e fraction]Ordered By: Cristy Abreu on 08-16-2022 Hematocrit (Bld) [Volume fraction] 39.3 % 37-47 [facility] Laboratory - Hematology and Cell countsOrdered By: Cristy Abreu on 08-16-2022 Erythrocyte distribution width (RBC) [Entitic vol] 43.2 fL 35.1-43.9 [facility] Erythrocyte distribution width (RBC) [Ratio] 13.7 % 11.6-14.6 [facility] Immature granulocytes/100 WBC (Bld) 0.400 % 0.0-0.9 [facility] Comment on above: IG% - Immature Granu locytes (promyelocytes, myelocytes and metamyelocytes) > 1% indicates that a LEFT SHIFT is Present. MCH (RBC) [Entitic mass] 29.3 pg 27.0-32.0 [facility] Nucleated RBC/100 WBC (Bld) [Ratio] 0 % 0-5 [facility] MCHC Auto (RBC) [Mass/Vol]Or dered By: Cristy Abreu on 08-16-2022 MCHC (RBC) [Mass/Vol] 33.6 g/dL 32-36 [facility] Platelets bldOrdered By: Med Abreu on 08-16-2022 Platelets (Bld) [#/Vol] 226 10*3/uL 150-450 [facility] Serum Treponema species anti body detectionOrdered By: Cristy Abreu on 08-16-2022 Treponema sp Ab Ql (S) Non-Reactive [facility] Laboratory - Chemistry and C hemistry - challengeon 08-10-2022 Glucose Ql (U) Negative [facility] Laboratory - Urinalysison Protein Ql (U) Negative [facility] Laboratory - Chemistry and C hemistry - challengeon 08-03-2022 Glucose Ql (U) Negative [facility] Laboratory - Urinalysison Protein Ql (U) Negative [facility] Culture, urineOrdered By: Yumi Mead on 07-27-2022 Bacteria identified Cx Nom (U) Positive [facility] No Panel InformationOrdered By: Rina Mead on 07-27-2022 Group B Streptococcus Culture Group B Beta Streptococcus is not isolated. [facility] Absolute lymphocyte countOrd ered By: Rina Mead on 07-25-2022 Lymphocytes Auto (Unsp spec) [#/Vol] 2.72 10*3/uL 0.83-4.51 [facility] Basophil percentageOrdered B y: Rina Mead on 07-25-2022 Basophils/100 WBC (Bld) 0.1 % 0-1 [facility] Bilirubin [Mass/Vol] 0.40 mg/dL 0.20-1.00 [facility] Comment on above: For patients on eltr ombopag therapy, use of Dimension [place] TBIL is not recommended. Chloride [Moles/Vol] 111 mmol/L 98-107 [facility] Eosinophils/100 WBC (Bld) 0.1 % 0-5 [facility] Glucose [Mass/Vol] 87 mg/dL 74-106 [facility] Neutrophils (Bld) [#/Vol] 10.3 10*3/uL 2.0-7.7 [facility] Neutrophils/100 WBC (Bld) 73.1 % 47-70 [facility] Potassium [Moles/Vol] 3.6 mmol/L 3.5-5.1 [facility] Protein [Mass/Vol] 6.0 g/dL 6.4-8.2 [facility] Sodium [Moles/Vol] 141 mmol/L 136-145 [facility] WBC (Bld) [#/Vol] 14.1 10*3/uL 4.4-11.0 [facility] Blood erythrocytes count (nu mber/volume)Ordered By: Rina Mead on 07-25-2022 RBC (Bld) [#/Vol] 4.18 10*6/uL 4.2-5.4 [facility] Blood hemoglobin measurement (mass/volume)Ordered By: Rina Mead on 07-25-2022 Hemoglobin (Bld) [Mass/Vol] 12.1 g/dL 12.0-15.0 [facility] Blood lymphocytes/100 leukoc ytesOrdered By: Rina Mead on 07-25-2022 Lymphocytes/100 WBC (Bld) 19.2 % 19-41 [facility] Blood monocytes/100 leukocyt esOrdered By: Rina Mead on 07-25-2022 Monocytes/100 WBC (Bld) 7.0 % 0-10 [facility] Blood platelet mean volumeOr dered By: Rina Mead on 07-25-2022 Platelet mean volume (Bld) [Entitic vol] 11.6 fL 6.2-12.0 [facility] Determination of erythrocyte mean corpuscular volume (MCV)Ordered By: Rina Mead on 07-25-2022 MCV (RBC) [Entitic vol] 87.1 fL 81-99 [facility] Hematocrit Auto (Bld) [Volum e fraction]Ordered By: Rina Mead on 07-25-2022 Hematocrit (Bld) [Volume fraction] 36.4 % 37-47 [facility] Laboratory - Chemistry and C hemistry - challengeOrdered By: Rinajeannette Mead on 07-25-2022 ALP [Catalytic activity/Vol] 137 U/L 45-117 [facility] ALT [Catalytic activity/Vol] 29 U/L 13-56 [facility] CO2 [Moles/Vol] 20.0 mmol/L 21.0-32.0 [facility] Globulin (S) [Mass/Vol] 3.7 g/dL 2.2-4.2 [facility] Urea nitrogen/Creatinine [Mass ratio] 4.6 mg/mg 10-20 [facility] Laboratory - Hematology and Cell countsOrdered By: Rina Mead on 07-25-2022 Erythrocyte distribution width (RBC) [Entitic vol] 41.7 fL 35.1-43.9 [facility] Erythrocyte distribution width (RBC) [Ratio] 13.2 % 11.6-14.6 [facility] Immature granulocytes/100 WBC (Bld) 0.500 % 0.0-0.9 [facility] Comment on above: IG% - Immature Granu locytes (promyelocytes, myelocytes and metamyelocytes) > 1% indicates that a LEFT SHIFT is Present. MCH (RBC) [Entitic mass] 28.9 pg 27.0-32.0 [facility] Nucleated RBC/100 WBC (Bld) [Ratio] 0 % 0-5 [facility] MCHC Auto (RBC) [Mass/Vol]Or dered By: Rina Mead on 07-25-2022 MCHC (RBC) [Mass/Vol] 33.2 g/dL 32-36 [facility] No Panel InformationOrdered By: Rina Mead on 07-25-2022 Estimated Creatinine Clearance Calc 106.85 ml/min [facility] Estimated GFR (MDRD) Amer 140 mL/min >60 [facility] Comment on above: GFR Calc Estimated GFR (MDRD) Non-Af Amer 115 mL/min >60 [facility] Comment on above: Non- GFR Calc Platelets bldOrdered By: Shagufta Mead on 07-25-2022 Platelets (Bld) [#/Vol] 235 10*3/uL 150-450 [facility] Serum or plasma albumin jay urement (mass/volume)Ordered By: Rina Mead on 07-25-2022 Albumin [Mass/Vol] 2.3 g/dL 3.2-5.0 [facility] Serum or plasma albumin/glob ulin mass ratioOrdered By: Rina Mead on 07-25-2022 Albumin/Globulin [Mass ratio] 0.6 {ratio} 0.9-2.4 [facility] Serum or plasma calcium jay urement (mass/volume)Ordered By: Rina Mead on 07-25-2022 Calcium [Mass/Vol] 8.8 mg/dL 8.5-10.1 [facility] Serum or plasma creatinine m easurement (mass/volume)Ordered By: Rina Mead on 07-25-2022 Creatinine [Mass/Vol] 0.66 mg/dL 0.55-1.02 [facility] Comment on above: The validity of the calculated GFR & GFRAA in patients over 70 years has not been determined. Clinical correlation is essential. Serum or plasma urea nitroge n measurement (mass/volume)Ordered By: Rina Mead on 07-25-2022 Urea nitrogen [Mass/Vol] 3 mg/dL 7-18 [facility] Thin prep Papanicolaou smear with manual screeningOrdered By: Rina Mead on 07-25-2022 Thin prep Papanicolaou smear with manual screening 51 U/L 15-37 [facility] Thin prep Papanicolaou smear with manual screening 10 5-15 [facility] Basophil percentageOrdered B y: Rina Mead on 07-24-2022 Basophil percentage 5-10 [facility] Ql (U)O rdered By: Rina Mead on 07-24-2022 Bilirubin Ql (U) Negative Negative [facility] Ketones Test strip Ql (U)Ord ered By: Rina Mead on 07-24-2022 Ketones Ql (U) Negative Negative [facility] Mucus LM Ql (Urine sed)Order ed By: Rina Mead on 07-24-2022 Mucus Ql (Urine sed) RARE /hpf [facility] Nitrite Test strip Ql (U)Ord ered By: Rina Mead on 07-24-2022 Nitrite Ql (U) Negative Negative [facility] No Panel InformationOrdered By: Rina Mead on 07-24-2022 Specimen Comment (Misc) Not Reportable [facility] Protein Test strip Ql (U)Ord ered By: Rina Mead on 07-24-2022 Protein Ql (U) 15 mg/dl Negative [facility] Serum Treponema species anti body detectionOrdered By: Rina Mead on 07-24-2022 Treponema sp Ab Ql (S) Non-Reactive [facility] Squamous epithelial cells de tection in urine sediment by light microscopyOrdered By: Rina Mead on 07-24-2022 Epithelial cells.squamous LM Ql (Urine sed) 5-10 SEEN /hpf 5-10 [facility] Thin prep Papanicolaou smear with manual screeningOrdered By: Rina Mead on 07-24-2022 Thin prep Papanicolaou smear with manual screening Negative Negative [facility] Urine blood detectionOrdered By: Rina Mead on 07-24-2022 RBC Ql (U) Negative Negative [facility] RBC Ql (U) 0-5 SEEN /hpf 0-5 [facility] Urine clarityOrdered By: Shagufta Mead on 07-24-2022 Clarity (U) Sl. Cloudy Clear [facility] Urine color determinationOrd ered By: Rina Mead on 07-24-2022 Color (U) Yellow Yellow [facility] Urine glucose detectionOrder ed By: Rina Mead on 07-24-2022 Glucose Ql (U) Normal mg/dl Normal [facility] Urine leukocyte esterase det ection by dipstickOrdered By: Rina Mead on 07-24-2022 Leukocyte esterase Test strip Ql (U) 100 /ul Negative [facility] Urine pHOrdered By: Rina Mead on 07-24-2022 pH (U) 8.0 [pH] 5.0 - 8.0 [facility] Urine sediment bacteria coun t by microscopy (number/high power field)Ordered By: Rina Mead on 07-24-2022 Bacteria LM.HPF (Urine sed) [#/Area] 2 /[HPF] None Seen [facility] Urine specific gravity measu rementOrdered By: Rina Mead on 07-24-2022 Specific gravity (U) [Rel density] 1.015 1.002-1.030 [facility] Urobilinogen Auto test strip Ql (U)Ordered By: Rina eMad on 07-24-2022 Urobilinogen Ql (U) Normal mg/dl Normal [facility] Laboratory - Chemistry and C hemistry - challengeon 07-20-2022 Glucose Ql (U) Negative [facility] Laboratory - Urinalysison Protein Ql (U) Negative [facility] Laboratory - Chemistry and C hemistry - challengeon 07-13-2022 Glucose Ql (U) Negative [facility] Laboratory - Urinalysison Protein Ql (U) Negative [facility] Laboratory - Chemistry and C hemistry - challengeon 07-06-2022 Glucose Ql (U) Negative [facility] Laboratory - Urinalysison Protein Ql (U) Negative [facility] Absolute lymphocyte countOrd ered By: Gui Sloan on 06-29-2022 Lymphocytes Auto (Unsp spec) [#/Vol] 2.11 10*3/uL 0.83-4.51 [facility] Basophil percentageOrdered B y: Gui Sloan on 06-29-2022 Basophils/100 WBC (Bld) 0.3 % 0-1 [facility] Bilirubin [Mass/Vol] 0.30 mg/dL 0.20-1.00 [facility] Comment on above: For patients on eltr ombopag therapy, use of Dimension [place] TBIL is not recommended. Chloride [Moles/Vol] 110 mmol/L 98-107 [facility] Eosinophils/100 WBC (Bld) 0.5 % 0-5 [facility] Glucose [Mass/Vol] 99 mg/dL 74-106 [facility] Neutrophils (Bld) [#/Vol] 8.5 10*3/uL 2.0-7.7 [facility] Neutrophils/100 WBC (Bld) 73.7 % 47-70 [facility] Potassium [Moles/Vol] 3.4 mmol/L 3.5-5.1 [facility] Protein [Mass/Vol] 6.4 g/dL 6.4-8.2 [facility] Sodium [Moles/Vol] 141 mmol/L 136-145 [facility] WBC (Bld) [#/Vol] 11.5 10*3/uL 4.4-11.0 [facility] Blood erythrocytes count (nu mber/volume)Ordered By: Gui Sloan on 06-29-2022 RBC (Bld) [#/Vol] 4.06 10*6/uL 4.2-5.4 [facility] Blood hemoglobin measurement (mass/volume)Ordered By: Gui Sloan on 06-29-2022 Hemoglobin (Bld) [Mass/Vol] 12.0 g/dL 12.0-15.0 [facility] Blood lymphocytes/100 leukoc ytesOrdered By: Gui Sloan on 06-29-2022 Lymphocytes/100 WBC (Bld) 18.3 % 19-41 [facility] Blood monocytes/100 leukocyt esOrdered By: Gui Sloan on 06-29-2022 Monocytes/100 WBC (Bld) 6.3 % 0-10 [facility] Blood platelet mean volumeOr dered By: Gui Sloan on 06-29-2022 Platelet mean volume (Bld) [Entitic vol] 11.4 fL 6.2-12.0 [facility] Determination of erythrocyte mean corpuscular volume (MCV)Ordered By: Gui Slona on 06-29-2022 MCV (RBC) [Entitic vol] 87.7 fL 81-99 [facility] Hematocrit Auto (Bld) [Volum e fraction]Ordered By: Gui Sloan on 06-29-2022 Hematocrit (Bld) [Volume fraction] 35.6 % 37-47 [facility] Laboratory - Chemistry and C hemistry - challengeOrdered By: Gui Sloan on 06-29-2022 ALP [Catalytic activity/Vol] 106 U/L 45-117 [facility] ALT [Catalytic activity/Vol] 15 U/L 13-56 [facility] CO2 [Moles/Vol] 23.0 mmol/L 21.0-32.0 [facility] Globulin (S) [Mass/Vol] 3.9 g/dL 2.2-4.2 [facility] Urea nitrogen/Creatinine [Mass ratio] 6.6 mg/mg 10-20 [facility] Laboratory - Chemistry and C hemistry - challengeon 06-29-2022 Glucose Ql (U) Negative [facility] Laboratory - Hematology and Cell countsOrdered By: Gui Sloan on 06-29-2022 Erythrocyte distribution width (RBC) [Entitic vol] 42.1 fL 35.1-43.9 [facility] Erythrocyte distribution width (RBC) [Ratio] 13.2 % 11.6-14.6 [facility] Immature granulocytes/100 WBC (Bld) 0.900 % 0.0-0.9 [facility] Comment on above: IG% - Immature Granu locytes (promyelocytes, myelocytes and metamyelocytes) > 1% indicates that a LEFT SHIFT is Present. MCH (RBC) [Entitic mass] 29.6 pg 27.0-32.0 [facility] Nucleated RBC/100 WBC (Bld) [Ratio] 0 % 0-5 [facility] Laboratory - Urinalysison Protein Ql (U) Negative [facility] MCHC Auto (RBC) [Mass/Vol]Or dered By: Gui Sloan on 06-29-2022 MCHC (RBC) [Mass/Vol] 33.7 g/dL 32-36 [facility] No Panel InformationOrdered By: Gui Sloan on 06-29-2022 Estimated GFR (MDRD) Amer 154 mL/min >60 [facility] Comment on above: GFR Calc Estimated GFR (MDRD) Non-Af Amer 127 mL/min >60 [facility] Comment on above: Non- GFR Calc Miscellaneous Test See comment [facility] Comment on above: TEST RESULT LIMITSBi le Acids, Fractionated LCMS Ursodeoxycholic Acids 0.10 umol/L Reference Range: All Ages: <1.9 Cholic Acids 0.60 umol/L Reference Range: All Ages: <2.2 Chenodeoxycholic Acids 0.50 umol/L Reference Range: All Ages: <5.8 Deoxycholic Acids 0.80 umol/L Reference Range: All Ages: <3.3 Total Bile Acids 2.0 umol/L This test was developed and its performance characteristics determined by [facility]. It has not been cleared or approved by the Food and Drug Administration. Reference Range: All Ages: <9.2 TESTING PERFORMED AT [facility]. ORIGINAL REPORT ON FILE IN LAB CONTAINS ADDITIONAL TEST SITE INFORMATION. Platelets bldOrdered By: Rafa Sloan on 06-29-2022 Platelets (Bld) [#/Vol] 251 10*3/uL 150-450 [facility] Serum or plasma albumin jay urement (mass/volume)Ordered By: Gui Sloan on 06-29-2022 Albumin [Mass/Vol] 2.5 g/dL 3.2-5.0 [facility] Serum or plasma albumin/glob ulin mass ratioOrdered By: Gui Sloan on 06-29-2022 Albumin/Globulin [Mass ratio] 0.6 {ratio} 0.9-2.4 [facility] Serum or plasma calcium jay urement (mass/volume)Ordered By: Gui Sloan on 06-29-2022 Calcium [Mass/Vol] 8.6 mg/dL 8.5-10.1 [facility] Serum or plasma creatinine m easurement (mass/volume)Ordered By: Gui Sloan on 06-29-2022 Creatinine [Mass/Vol] 0.60 mg/dL 0.55-1.02 [facility] Comment on above: The validity of the calculated GFR & GFRAA in patients over 70 years has not been determined. Clinical correlation is essential. Serum or plasma urea nitroge n measurement (mass/volume)Ordered By: Gui Sloan on 06-29-2022 Urea nitrogen [Mass/Vol] 4 mg/dL 7-18 [facility] Thin prep Papanicolaou smear with manual screeningOrdered By: Gui Sloan on 06-29-2022 Thin prep Papanicolaou smear with manual screening 14 U/L 15-37 [facility] Thin prep Papanicolaou smear with manual screening 8 5-15 [facility] Laboratory - Chemistry and C hemistry - challengeon 06-22-2022 Glucose Ql (U) Negative [facility] Laboratory - Urinalysison Protein Ql (U) Negative [facility] Laboratory - Chemistry and C hemistry - challengeon 06-08-2022 Glucose Ql (U) Negative [facility] Laboratory - Urinalysison Protein Ql (U) Negative [facility] Absolute lymphocyte countOrd ered By: Gui Sloan on 05-25-2022 Lymphocytes Auto (Unsp spec) [#/Vol] 2.12 10*3/uL 0.83-4.51 [facility] Basophil percentageOrdered B y: Gui Sloan on 05-25-2022 Basophils/100 WBC (Bld) 0.3 % 0-1 [facility] Eosinophils/100 WBC (Bld) 0.3 % 0-5 [facility] Neutrophils (Bld) [#/Vol] 9.0 10*3/uL 2.0-7.7 [facility] Neutrophils/100 WBC (Bld) 75.3 % 47-70 [facility] WBC (Bld) [#/Vol] 12.0 10*3/uL 4.4-11.0 [facility] Blood erythrocytes count (nu mber/volume)Ordered By: Gui Sloan on 05-25-2022 RBC (Bld) [#/Vol] 4.03 10*6/uL 4.2-5.4 [facility] Blood hemoglobin measurement (mass/volume)Ordered By: Gui Sloan on 05-25-2022 Hemoglobin (Bld) [Mass/Vol] 11.7 g/dL 12.0-15.0 [facility] Blood lymphocytes/100 leukoc ytesOrdered By: Gui Sloan on 05-25-2022 Lymphocytes/100 WBC (Bld) 17.7 % 19-41 [facility] Blood monocytes/100 leukocyt esOrdered By: Gui Sloan on 05-25-2022 Monocytes/100 WBC (Bld) 5.4 % 0-10 [facility] Blood platelet mean volumeOr dered By: Gui Sloan on 05-25-2022 Platelet mean volume (Bld) [Entitic vol] 11.2 fL 6.2-12.0 [facility] Determination of erythrocyte mean corpuscular volume (MCV)Ordered By: Gui Sloan on 05-25-2022 MCV (RBC) [Entitic vol] 89.3 fL 81-99 [facility] Gestational diabetes screen 1-hour screen with 50g oral glucose loadOrdered By: Gui Sloan on 05-25-2022 Glucose 1 Hr post 50 g glucose PO [Mass/Vol] 100 mg/dL 70-140 [facility] HIV 1 and HIV-2 antibody ass ay with HIV-1 p24 antigen detectionOrdered By: Gui Sloan on 05-25-2022 HIV 1+2 Ab+HIV1 p24 Ag IA Ql Non-Reactive Nonreactive [facility] Hematocrit Auto (Bld) [Volum e fraction]Ordered By: Gui Sloan on 05-25-2022 Hematocrit (Bld) [Volume fraction] 36.0 % 37-47 [facility] Laboratory - Hematology and Cell countsOrdered By: Gui Sloan on 05-25-2022 Erythrocyte distribution width (RBC) [Entitic vol] 42.0 fL 35.1-43.9 [facility] Erythrocyte distribution width (RBC) [Ratio] 12.9 % 11.6-14.6 [facility] Immature granulocytes/100 WBC (Bld) 1.000 % 0.0-0.9 [facility] Comment on above: IG% - Immature Granu locytes (promyelocytes, myelocytes and metamyelocytes) > 1% indicates that a LEFT SHIFT is Present. MCH (RBC) [Entitic mass] 29.0 pg 27.0-32.0 [facility] Nucleated RBC/100 WBC (Bld) [Ratio] 0 % 0-5 [facility] MCHC Auto (RBC) [Mass/Vol]Or dered By: Gui Sloan on 05-25-2022 MCHC (RBC) [Mass/Vol] 32.5 g/dL 32-36 [facility] Platelets bldOrdered By: Rafa Sloan on 05-25-2022 Platelets (Bld) [#/Vol] 283 10*3/uL 150-450 [facility] Serum Treponema species anti body detectionOrdered By: Gui Sloan on 05-25-2022 Treponema sp Ab Ql (S) Non-Reactive [facility] Laboratory - Chemistry and C hemistry - challengeon 05-12-2022 Glucose Ql (U) Negative [facility] Laboratory - Urinalysison Protein Ql (U) Negative [facility] Laboratory - Chemistry and C hemistry - challengeon 04-13-2022 Glucose Ql (U) Negative [facility] Laboratory - Urinalysison Protein Ql (U) Negative [facility] GROUP A STREP,PCRon 03-31-20 GROUP A STREP,PCR Not detected Normal Not Detected [facility] Comment on above: Result Comment: This test was performed utilizing an FDA-cleared rapid nucleic acid amplification by PCR to qualitatively detect Group A Streptococci from throat swab specimens without the need for culture confirmation of negative results. 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 Laboratory - Chemistry and C hemistry - challengeon 03-16-2022 Glucose Ql (U) Negative [facility] Laboratory - Urinalysison Protein Ql (U) Negative [facility] Absolute lymphocyte counton 01-29-2022 Lymphocytes Auto (Unsp spec) [#/Vol] 2.43 10*3/uL 0.83-4.51 [facility] Work Phone: Basophil percentageon 2021 Basophils/100 WBC (Bld) 0.3 % 0-1 [facility] Work Phone: Eosinophils/100 WBC (Bld) 0.3 % 0-5 [facility] Work Phone: Neutrophils (Bld) [#/Vol] 7.7 10*3/uL 2.0-7.7 [facility] Work Phone: Neutrophils/100 WBC (Bld) 70.3 % 47-70 [facility] Work Phone: WBC (Bld) [#/Vol] 11.0 10*3/uL 4.4-11.0 [facility] Work Phone: Blood erythrocytes count (nu mber/volume)on 01-29-2022 RBC (Bld) [#/Vol] 4.56 10*6/uL 4.2-5.4 [facility] Work Phone: Blood hemoglobin measurement (mass/volume)on 01-29-2022 Hemoglobin (Bld) [Mass/Vol] 13.2 g/dL 12.0-15.0 [facility] Work Phone: Blood lymphocytes/100 leukoc yteson 01-29-2022 Lymphocytes/100 WBC (Bld) 22.2 % 19-41 [facility] Work Phone: Blood monocytes/100 leukocyt eson 01-29-2022 Monocytes/100 WBC (Bld) 6.4 % 0-10 [facility] Work Phone: Blood platelet mean volumeon 01-29-2022 Platelet mean volume (Bld) [Entitic vol] 11.2 fL 6.2-12.0 [facility] Work Phone: Determination of erythrocyte mean corpuscular volume (MCV)on 01-29-2022 MCV (RBC) [Entitic vol] 86.4 fL 81-99 [facility] Work Phone: Gestational diabetes screen 1-hour screen with 50g oral glucose loadon 01-29-2022 Glucose 1 Hr post 50 g glucose PO [Mass/Vol] 74 mg/dL 70-140 [facility] Work Phone: HIV 1 and HIV-2 antibody ass ay with HIV-1 p24 antigen detectionon 01-29-2022 HIV 1+2 Ab+HIV1 p24 Ag IA Ql Non-Reactive Nonreactive [facility] Work Phone: Hematocrit Auto (Bld) [Volum e fraction]on 01-29-2022 Hematocrit (Bld) [Volume fraction] 39.4 % 37-47 [facility] Work Phone: Laboratory - Hematology and Cell countson 01-29-2022 Erythrocyte distribution width (RBC) [Entitic vol] 38.4 fL 35.1-43.9 [facility] Work Phone: Erythrocyte distribution width (RBC) [Ratio] 12.1 % 11.6-14.6 [facility] Work Phone: Immature granulocytes/100 WBC (Bld) 0.500 % 0.0-0.9 [facility] Work Phone: Comment on above: IG% - Immature Granu locytes (promyelocytes, myelocytes and metamyelocytes) > 1% indicates that a LEFT SHIFT is Present. MCH (RBC) [Entitic mass] 28.9 pg 27.0-32.0 [facility] Work Phone: Nucleated RBC/100 WBC (Bld) [Ratio] 0 % 0-5 [facility] Work Phone: MCHC Auto (RBC) [Mass/Vol]on 01-29-2022 MCHC (RBC) [Mass/Vol] 33.5 g/dL 32-36 [facility] Work Phone: No Panel Informationon 01-29 Hepatitis B Surface Antigen Non-Reactive Nonreactive [facility] Work Phone: Hepatitis C Antibody Non-Reactive Nonreactive [facility] Work Phone: Comment on above: Non Reactive: < 0.8 Equivocal: >/= 0.8 to < 1.0 Reactive: >/= 1.0The CDC recommends that a reactive/equivocal HCV antibody result be followed up by the HCV Nucleic Acid Amplificationtest (491279) Miscellaneous Test Comment MAILED SPECIMEN [facility] Work Phone: Rubella IgG Antibody Reactive Nonreactive [facility] Work Phone: Comment on above: Antibody Results Int erpretation of Immune Status Non Reactive Presumed Non-Immune Equivocal Equivocal Reactive Presumed Immune Platelets bldon 01-29-2022 Platelets (Bld) [#/Vol] 293 10*3/uL 150-450 [facility] Work Phone: Serum Treponema species anti body detectionon 01-29-2022 Treponema sp Ab Ql (S) Non-Reactive [facility] Work Phone: Cervical or vagninal specime n microscopic examination by cytology stain (reported ason 01-20-2022 Cytology report Cyto stain Doc (Cvx/Vag) Comment . [facility] Work Phone: Comment on above: The Pap [...] Negative Negative [facility] Work Phone: Laboratory - Cytologyon Dehydrogenation Operator Cyto stain Nom (Cvx/Vag) [ID] Comment . [facility] Work Phone: Comment on above: Deniz Davidsont echnologist (ASC) Laboratory - Drug toxicology on 01-20-2022 Amphetamines Ql (U) Negative <1000 ng/mL [facility] Work Phone: Benzodiazepines Ql (U) Negative < 200 ng/mL [facility] Work Phone: Cannabinoids Screen Ql (U) Negative < 50 ng/mL [facility] Work Phone: Cocaine Ql (U) Negative < 300 ng/mL [facility] Work Phone: Opiates Ql (U) Negative < 300 ng/mL [facility] Work Phone: Laboratory - Microbiology an d Antimicrobial susceptibilityon 01-20-2022 N. gonorrhoeae DNA ABBY+probe Ql (Unsp spec) Negative Negative [facility] Work Phone: Comment on above: Performed at: =G - [facility] [address] [id number] Director: Elisabeth Bui MD, Phone: [phone] Laboratory - Miscellaneous t estson 01-20-2022 Service comment (Unsp spec) [Interp] Comment . [facility] Work Phone: Comment on above: This liquid based Th inPrep(R) pap test was screened withthe use of an image guided system. Service comment (Unsp spec) [Interp] . . [facility] Work Phone: No Panel Informationon 01-20 Human Papillomavirus Screen Comment . [facility] Work Phone: Comment on above: The HPV DNA reflex c isabel were not met with this specimenresult therefore, no HPV testing was performed.Performed at: - [facility] [id number] Director: Elisabeth Bui MD, Phone: [phone] MDMA (Ecstasy) Screen Negative < 500 ng/mL [facility] Work Phone: Pathology report final diagnosis Narrative Comment . [facility] Work Phone: Comment on above: NEGATIVE FOR INTRAEP ITHELIAL LESION OR MALIGNANCY.CELLULAR CHANGES ASSOCIATED WITH INFLAMMATION ARE PRESENT.THIS SPECIMEN WAS RESCREENED PART OF OUR SEPTIC TECHNICIAN PROGRAM. Urine Barbiturates Screen Negative < 200 ng/mL [facility] Work Phone: Urine Drug Screen Comment [facility] Work Phone: Comment on above: CONFIRMATORY TESTING [...] Urine Methadone Screen Negative < 300 ng/mL [facility] Work Phone: Urine phencyclidine (PCP) de tectionon 01-20-2022 Phencyclidine Ql (U) Negative < 25 ng/mL [facility] Work Phone: DHEA Sulfate, Serumon 2020 DHEA-S [Mass/Vol] 133 ug/dL 65 - [address] [facility] Mely Monteagle Work Phone: Comment on above: MATURITY-BASED REFER [...] may contact their local laboratoryfor further information. 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 Diagnoses/Problems Assessed PCOS (polycystic ovarian syndrome) (256.4) (E28.2) Insulin resistance (277.7) (E88.81) Obesity (278.00) (E66.9) Orders Family Medicine Referral Evaluation and Treatment Evaluate AND Treat Status: Hold For - Scheduling Requested for: [id number] Nutrition Consult Referral Evaluation and Treatment Evaluate AND Treat Status: Hold For - Scheduling Requested for: [id number] 17-Hydroxyprogesterone, Serum; Status:Active; Requested for:16Gtp2286; Follow-up PRN Outpatient Follow-up Status: Active Requested for: [id number] DHEA Sulfate, Serum; Status:Active; Requested for:09Umi9101; Follow-up visit in 12 months Outpatient Follow-up Status: Hold For - Scheduling Requested for: [id number] Provider Impressions 1)PCOS-patient needs to 3 [place] [...] NO NEW CONCERNS. LMP-06/17/2020. History of Present Mfdigyq07-edqb-gcb presents with her results review. Patient is [...] TABLET TWICE DAILY. Vitals Vital Signs Recorded: 01Osg9749 11:29AM Erssyvbedzx55.3 F, Temporal Niuwzbwq489, LUE, Sitting Qyukupcko48, LUE, Sitting Height5 ft 3 in Qvczqy178 lb 12.24 oz BMI Hiwgbmotth68.64 BSA Calculated2.03 [id number] Physical Exam General: None acute distress Eye: Intraocular movements are intact HEENT: Normocephalic Cardiovascular: Regular rate Respiratory: Respirations are nonlabored Gastrointestinal: Nondistended Musculoskeletal: Normal range of motion Neurologic: Alert and oriented x3 Psychiatric: Cooperative appropriate mood and affect. Results/Data Ultrasound Pelvis Transabdominal With Ahxfmspficdv71Msj7539 08:39AMAYunior borrego [Jun 14, 2020 9:00AM Yunior Mercado] Reason: Unspecified for Ultrasound Pelvis Transabdominal With Transvaginal Test NameResultFlagReference Ultrasound Pelvis Transabdominal With Transvaginal(Report) Interpreted by: SANGITA ZAMAN 06/20/20 10:32 Patient Name: CLAUDIA FARFAN STUDY: US PELVIS TRANSABDOMINAL WITH TRANSVAGINAL; 06/20/2020 8:39 am INDICATION: aub, ?PCOS. LMP 06/17/2020. On oral control. COMPARISON: 07/17/2017 ACCESSION NUMBER(S): [id number] ORDERING CLINICIAN: YUNIOR MERCADO TECHNIQUE: Multiple multiplanar [...] by: SANGITA ZAMAN 06/20/20 10:32 Complete Blood Sbxdo08Vjw2542 07:47AMAdair, Yunior Test NameResultFlagReference White Blood Cell Count9.7 x10E9/L4.4 - 11.3 Red Blood Cell Count5.14 x10E12/LSee Below Reference Range: 4.00 - 5.20 Vpvorqcmjz68.9 g/dLSee Below Reference Range: 12.0 - 16.0 HCT44.7 %See Below Reference Range: 36.0 - 46.0 MCV87 fL80 - 100 MCHC33.2 g/dLSee Below Reference Range: 32.0 - 36.0 Platelet Havhf091 x10E9/L150 - 450 RDW-CV13.1 %See Below Reference Range: 11.5 - 14.5 TSH - Thyroid Stimulating Hormone, Kjaka40Qbt9924 07:47AMAdair, Yunior Test NameResultFlagReference Thyroid Stimulating Hormone, Serum1.86 mIU/LSee Below Reference Range: 0.44 - 3.98 TSH testing is performed using different testing methodology at [facility] than at other [facility]. Direct result comparisons should only be made within the same method. Testosterone, Hkyac14Tma5856 07:47AMAdair, Yunior Test NameResultFlagReference Testosterone, Level<60 ng/dL0 - 70 Nandrolone decanoate, 11 Beta-hydroxytestosterone, androstenedione, testosterone propionate and 85-emsj-mzjacgklhtxs strongly cross react with this test method. 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 We will get a CBC TSH [...] in the future. LMP- History of Present Sjhzgll10-vkfd-cmf G0 presents for second opinion about potentially [...] DAILY. Vitals Vital Signs Recorded: 14Jun2020 08:28AM Ntnjgsmdrwn65.5 F, Temporal Lglyovfk941, LUE, Sitting Ffgvjbwlo06, LUE, Sitting Height5 ft 3 in Vfxybb392 lb 3.30 oz BMI Onfqwkdugu41.72 BSA Calculated2.03 OYC95Epp9712 Physical Exam General: None acute distress Eye: [...] Jun 14 2020 9:02AM EST (Author) [facility] Albumin mass conc 4.1 g/dL Normal 3.4-5.0 [facility] Comment on above: Performed By: #### 2 [id number] #### ADAIR Chemistry Manual Subsection [facility] [place] [address] Albumin/Globulin mass ratio 1.4 {ratio} Normal 1.1-1.9 [facility] Comment on above: Performed By: #### 2 351396 #### ADAIR Chemistry Manual Subsection [facility] [place] [address] Alk Phos 55 Int._Unit/L Normal 33-110 [facility] Comment on above: Performed By: #### 2 775107 #### ADAIR Chemistry Manual Subsection [facility] [place] [address] ALT enzyme act/vol 20 Int._Unit/L Normal 7-[address] [facility] Comment on above: Performed By: #### 2 [id number] #### ADAIR Chemistry Manual Subsection [address] [place] [address] Anion gap molar conc 11 mmol/L Normal 10-20 [facility] Comment on above: Performed By: #### 2 699145 #### ADAIR Chemistry Manual Subsection [address] [place] [address] 85668 AST enzyme act/vol 22 Int._Unit/L Normal 9-[address] [facility] Comment on above: Performed By: #### 2 398788 #### ADAIR Chemistry Manual Subsection [address] [place] [address] 086[address] Bili Total 0.42 mg/dL Normal 0.00-1.20 [facility] Comment on above: Performed By: #### 2 118524 #### ADAIR Chemistry Manual Subsection [address] [place] [address] Calcium mass conc 9.3 mg/dL Normal 8.6-10.3 [facility] Comment on above: Performed By: #### 2 440756 #### ADAIR Chemistry Manual Subsection [address] [place] [address] 00835 Chloride molar conc 105 mmol/L Normal 98-107 [facility] Comment on above: Performed By: #### 2 008964 #### ADAIR Chemistry Manual Subsection [address] [place] [address] 61328 CO2 molar conc 26.0 mmol/L Normal 21.0-32.0 [facility] Comment on above: Performed By: #### 2 468066 #### ADAIR Chemistry Manual Subsection [address] [place] [address] Creatinine mass conc 0.8 mg/dL Normal 0.5-1.1 [facility] Comment on above: Performed By: #### 2 954423 #### ADAIR Chemistry Manual Subsection [address] [place] [address] 16002 Globulin mass conc (S) 3.0 g/dL Normal 2.0-4.[address] [facility] Comment on above: Performed By: #### 2 031867 #### ADAIR Chemistry Manual Subsection [address] [place] [address] 27783 Glucose mass conc 84 mg/dL Normal 70-99 [facility] Comment on above: Performed By: #### 2 379964 #### ADAIR Chemistry Manual Subsection [facility] [place] [address] Potassium molar conc 3.8 mmol/L Normal 3.5-5.3 [facility] Comment on above: Performed By: #### 2 917262 #### ADAIR Chemistry Manual Subsection [address] [place] [address] 12918 Protein mass conc 7.0 g/dL Normal 6.4-8.2 [facility] Comment on above: Performed By: #### 2 504413 #### ADAIR Chemistry Manual Subsection [address] [place] [address] 745[address] Sodium molar conc 138 mmol/L Normal 136-145 [facility] Comment on above: Performed By: #### 2 484715 #### ADAIR Chemistry Manual Subsection [address] [place] [address] 91737 Urea nitrogen mass conc 9 mg/dL Normal 6-23 [facility] Comment on above: Performed By: #### 2 286883 #### ADAIR Chemistry Manual Subsection [address] [place] [address] Urea nitrogen/Creatinine mass ratio 11.2 ratio Normal 5.4-30.0 [facility] Comment on above: Performed By: #### 2 851452 #### ADAIR Chemistry Manual Subsection [address] [place] [address] eGFRon 09-08-2018 GFR/1.73 sq M predicted among non-blacks MDRD vol rate/area (S/P/Bld) mL/min/{1.73_m2} Normal [facility] Comment on above: Order Comment: Order added by Discern Expert. Performed By: #### 2 166534 #### ADAIR Chemistry Manual Subsection [address] [place] [address] FSHon 07-26-2018 FSH 4.9 mIU/mL Normal [facility] Comment on above: Result Comment: Adul t Female: Follicular phase 3.5 - 12.5 Ovulation phase 4.7 - 21.5 Luteal phase 1.7 - 7.7 Postmenopausal 25.8 - 134.8 Performed At: [facility] [id number] Don Quick PhD Ph:[phone] Performed By: #### 2 855282 #### ADAIR Send Outs Subsection [facility] [place] [address] Insulin Lvlon 07-26-2018 Insulin Lvl 42.5 mcIU/mL High 2.6-24.9 [facility] Comment on above: Result Comment: Perf ormed At: [facility] [id number] [place], [place] [id number] Don Quick PhD Ph:[phone] Performed By: #### 2 179309 #### ADAIR Chemistry Manual Subsection [facility] [place] [address] LHon 07-26-2018 LH 4.6 mIU/mL Normal [facility] Comment on above: Result Comment: Adul t Female: Follicular phase 2.4 - 12.6 Ovulation phase 14.0 - 95.6 Luteal phase 1.0 - 11.4 Postmenopausal 7.7 - 58.5 Performed At: [facility] [id number] [place], [place] [id number] Don Quick PhD Ph:[phone] Performed By: #### 2 960652 #### ADAIR Send Outs Subsection [facility] [place] [address] Prolactin Lvlon 07-26-2018 Protein mass conc 9.2 ng/mL Normal 4.8-23.3 [facility] Comment on above: Result Comment: Perf ormed At: [place] [id number] [place], [place] [id number] Don Quick PhD Ph:[phone] Performed By: #### 2 900364 #### ADAIR Chemistry Manual Subsection [facility] [place] [address] Testost Totalon 07-26-2018 Testoster Tot 16 ng/dL Normal 8-48 [facility] Comment on above: Result Comment: Perf ormed At: [address] [id number] Don Quick PhD Ph:[phone] Performed By: #### 2 513078 #### ADAIR Chemistry Manual Subsection [address] [place] [address] BhCG Qualon 07-25-2018 HCG.beta subunit Qn Negative Normal Negative [facility] Comment on above: Performed By: #### 2 883763 #### ADAIR Chemistry Manual Subsection [address] [place] [address] CMPon 07-25-2018 Albumin mass conc 4.0 g/dL Normal 3.4-5.0 [facility] Comment on above: Performed By: #### 2 092446 #### ADAIR [employer] [address] [place] [address]62 Albumin/Globulin mass ratio 1.3 {ratio} Normal 1.1-1.9 [facility] Comment on above: Performed By: #### 2 831509 #### [facility] [employer]ink [address] [place] [address] Alk Phos 45 Int._Unit/L Normal 33-110 [facility] Comment on above: Performed By: #### 2 123132 #### ADAIR [employer] [address] [place] [address] ALT enzyme act/vol 10 Int._Unit/L Normal 7-[address] [facility] Comment on above: Performed By: #### 2 793094 #### ADAIR [employer] [address] [place] [address] Anion gap molar conc 10 mmol/L Normal 10-20 [facility] Comment on above: Performed By: #### 2 393069 #### ADAIR [employer] [address] [place] [address] 06570 AST enzyme act/vol 10 Int._Unit/L Normal 9-[address] [facility] Comment on above: Performed By: #### 2 649386 #### ADAIR [employer] [address] [place] [address] 85863 Bili Total 0.23 mg/dL Normal 0.00-1.20 [facility] Comment on above: Performed By: #### 2 233560 #### ADAIR [employer] [address] [place] [address] 70865 Calcium mass conc 8.9 mg/dL Normal 8.6-10.3 [facility] Comment on above: Performed By: #### 2 133287 #### ADAIR [employer] [address] [place] [address]809 Chloride molar conc 107 mmol/L Normal 98-107 [facility] Comment on above: Performed By: #### 2 721980 #### [facility] [employer] [address] [place] [address] 69232 CO2 molar conc 26.0 mmol/L Normal 21.0-32.0 [facility] Comment on above: Performed By: #### 2 866034 #### [employer]IR [employer] [address] [place] [address] 30[address] Creatinine mass conc 0.7 mg/dL Normal 0.5-1.1 [facility] Comment on above: Performed By: #### 2 768648 #### [facility] [employer] [address] [place] [address] 71138 Globulin mass conc (S) 3.0 g/dL Normal 2.0-4.[address] [facility] Comment on above: Performed By: #### 2 728067 #### [facility] [employer] [address] [place], [place] [address] Glucose mass conc 90 mg/dL Normal 70-99 [facility] Comment on above: Performed By: #### 2 202085 #### [facility] [employer] [address] [place] [address] Potassium molar conc 3.9 mmol/L Normal 3.5-5.3 [facility] Comment on above: Performed By: #### 2 348858 #### [facility] [employer] [address] [place] [address] 47057 Protein mass conc 7.1 g/dL Normal 6.4-8.2 [facility] Comment on above: Performed By: #### 2 663208 #### [employer]IR [employer] [address] [place] [address] 08908 Sodium molar conc 139 mmol/L Normal 136-145 [facility] Comment on above: Performed By: #### 2 981995 #### [employer]IR [employer] [address] [place] [address] 65590 Urea nitrogen mass conc 10 mg/dL Normal 6-23 [facility] Comment on above: Performed By: #### 2 958812 #### ADAIR [employer] [address] [place], [place] [address] Urea nitrogen/Creatinine mass ratio 14.3 ratio Normal 5.4-30.0 [facility] Comment on above: Performed By: #### 2 893527 #### [employer]IR [employer] [address] [place] [address] 07578 RrbO5blm 07-25-2018 Hemoglobin A1c/Hemoglobin.total mass fraction (Bld) 5.0 % Normal 4.0-6.3 [facility] Comment on above: Performed By: #### 3 [id number] #### ADAIR Chemistry Manual Subsection [address] [place] [address] Lipid Profileon 07-25-2018 Cholesterol in HDL mass conc 37 mg/dL Low >=45 [facility] Comment on above: Performed By: #### 3 9796733 #### ADAIR [employer] [address] [place] [address]00 Cholesterol in LDL mass conc 102 mg/dL Normal 0-130 [facility] Comment on above: Result Comment: <100 OPTIMAL 100-129 NEAR / ABOVE OPTIMAL 130-159 BORDERLINE HIGH 160-189 HIGH >190 VERY HIGH CALC LDL NOT VALID WHEN TRIGLYCERIDE IS >400 MG/DL Performed By: #### 3 7094872 #### [employer]IR [employer] [address] [place] [address]1230 Cholesterol in VLDL mass conc 39 mg/dL Normal 0-40 [facility] Comment on above: Performed By: #### 3 [id number] #### ADAIR [employer] [address] [place] [address]132 Cholesterol mass conc 178 mg/dL Normal 0-189 [facility] Comment on above: Result Comment: TOTA L CHOLEESTEROL: <200 NORMAL 200 - 239 BORDERLINE HIGH >240 HIGH Performed By: #### 3 [id number] #### ADAIR Datalink [facility] [place] [address] Triglyceride mass conc 193 mg/dL High 0-[address] [facility] Comment on above: Result Comment: AGE DESIRABLE BORDERLINE HIGH 91 D - 9 Y 0 - 74 75 - 99 > 100 10 - 19 Y 0 - 89 90 - 129 > 130 20 -24 Y 0 - 114 115 - 149 > 150 > 25 0 - 149 150 - 199 200 - 499 Performed By: #### 3 [id number] #### ADAIR [employer] [address] [place] [address]151 TSHon 07-25-2018 Thyrotropin Qn 2.48 mcIU/mL Normal 0.30-5.[address] [facility] Comment on above: Performed By: #### 2 801153 #### ADAIR [employer] [address] [place] [address] U BhCG Qlton 07-25-2018 HCG.beta subunit Qn Negative Normal Neg [facility] Comment on above: Performed By: #### 2 914062 #### ADAIR Urinalysis Manual Subsection [address] [place] [address] eGFRon 07-25-2018 GFR/1.73 sq M predicted among non-blacks MDRD vol rate/area (S/P/Bld) mL/min/{1.73_m2} [facility] Comment on above: Order Comment: Order added by Discern Expert. Performed By: #### 1 [id number] #### ADAIR [employer] [address] [place] [address] C Urineon 02-12-2018 C Urine Final Report: [...] <=4 S SXT : <=2/38 S Normal [facility] Comment on above: Performed By: #### 2 [id number] #### ADAIR Microbiology Subsection [address] [place], [place] [address] FINGERS LT HAND 2ND DIGITon 11-16-2017 FINGERS [...] IMPRESSION:1. No fracture or dislocation identified. Normal [facility] CBC With Differentialon 12-0 -2016 Basophils Auto #/vol (Bld) 0.05 10*3/uL Normal 0.01-0.07 [facility] Comment on above: Performed By: #### 2 856035 ####[facility] [address] [place] [address] Basophils/100 WBC Auto (Bld) 0.4 % Normal 0.1-1.2 [facility] Comment on above: Performed By: #### 2 805109 ####[facility] [address] [place] [address] Eosinophils Auto #/vol (Bld) 0.09 10*3/uL Normal 0.04-0.50 [facility] Comment on above: Performed By: #### 2 949399 ####[facility] [address] [place] [address] Eosinophils/100 WBC Auto (Bld) 0.7 % Normal 0.0-8.1 [facility] Comment on above: Performed By: #### 2 130430 ####[facility] [address] [place] [address] Erythrocyte distribution width Auto Ratio (RBC) 12.7 % Normal 12.0-15.4 [facility] Comment on above: Performed By: #### 2 195117 ####[facility] [address] [place] [address] Hematocrit Auto Volume Fraction (Bld) 43.8 % Normal 36.5-46.6 [facility] Comment on above: Performed By: #### 2 171553 ####[facility] E[address] [place] [address] Hemoglobin mass conc (Bld) 14.8 g/dL Normal 11.8-15.3 [facility] Comment on above: Performed By: #### 2 731665 ####[facility] [address] [place] [address] Imm Grans Absolute 0.05 10*3/uL Normal 0.00-0.21 [facility] Comment on above: Performed By: #### 2 188599 ####[facility] [address] [place] [address] Immature granulocytes #/vol (Bld) 0.4 % Normal [facility] Comment on above: Performed By: #### 2 873417 ####[facility] [address] [place] [address] Lymphocytes Auto #/vol (Bld) 3.12 10*3/uL High 0.40-2.84 [facility] Comment on above: Performed By: #### 2 124333 ####[facility] [address] [place] [address] Lymphocytes/100 WBC Auto (Bld) 25.8 % Normal 15.7-50.5 [facility] Comment on above: Performed By: #### 2 634915 ####[facility] [address] [place] [address] MCH Auto Entitic mass (RBC) 28.8 pg Normal 27.5-33.0 [facility] Comment on above: Performed By: #### 2 421343 ####[facility] [address] [place] [address] MCHC Auto mass conc (RBC) 33.8 g/dL Normal 30.1-35.0 [facility] Comment on above: Performed By: #### 2 148366 ####[facility] [address] [place] [address] MCV Auto Entitic volume (RBC) 85.4 fL Normal 85.4-100.0 [facility] Comment on above: Performed By: #### 2 146612 ####[facility] Aux[address] [place] [address] Monocytes Auto #/vol (Bld) 0.72 10*3/uL Normal 0.25-0.83 [facility] Comment on above: Performed By: #### 2 897566 ####[facility] [address] [place] [address] Monocytes/100 WBC Auto (Bld) 6.0 % Normal 4.8-12.7 [facility] Comment on above: Performed By: #### 2 937362 ####[facility] [address] [place] [address] Neutrophils Absolute 8.07 10*3/uL High 1.95-6.85 [facility] Comment on above: Performed By: #### 2 610329 ####[facility] [address] [place] [address] Neutrophils/100 WBC Auto (Bld) 66.7 % Normal 36.8-73.2 [facility] Comment on above: Performed By: #### 2 727970 ####[facility] [address] [place] [address] NRBC Absolute 0.00 10*3/uL Normal [facility] Comment on above: Performed By: #### 2 224957 ####[facility] [address] [place] [address] NRBC Automated 0.0 /100{WBCs} Normal [facility] Comment on above: Performed By: #### 2 467066 ####[facility] [address] [place] [address] Platelet mean volume Auto Entitic volume (Bld) 10.8 fL Normal 9.9-12.1 [facility] Comment on above: Performed By: #### 2 495623 ####[facility] Xq[address] [place] [address] Platelets Auto #/vol (Bld) 302 10*3/uL Normal 155-404 [facility] Comment on above: Performed By: #### 2 965464 ####[facility] [address]qv[address] [place] [address] RBC Auto #/vol (Bld) 5.13 10*6/uL High 3.85-5.10 [facility] Comment on above: Performed By: #### 2 632534 ####[facility] Vix[address] [place] [address] RDW SD 39.6 fL Normal 39.3-48.6 [facility] Comment on above: Performed By: #### 2 272815 ####[facility] [address] [place] [address] WBC Auto #/vol (Bld) 12.1 10*3/uL High 4.4-9.9 [facility] Comment on above: Performed By: #### 2 448249 ####[facility] [address] [place] [address] CT NECK W/CONTRASTon 017 CT NECK W/CONTRAST DATE OF EXAM: Apr 17 2017 8:50PMCLINICAL HISTORY/ Name: BENIGNO WILLISTUDY:CT NECK W/CONTRAST; 04/17/2017 8:50 pmINDICATION:for mass.COMPARISON:Ultrasoun d dated 04/13/2017ACCESSION NUMBER(S):[id number] ING CLINICIAN:BEBE LEGER:Following intravenous injection axial CT [...] or abscess.Reactive lymphadenopathy; attention on follow-up. Normal [facility] CT THORAX WITH CONTRASTon CT THORAX WITH CONTRAST DATE OF EXAM: Apr 17 2017 8:50PMCLINICAL HISTORY/ Name: JONAS FARFANABATUDY:CT THORAX WITH CONTRAST; 04/17/2017 8:50 pmINDICATION:for mass.COMPARISON:None.ACCE SSION NUMBER(S):[id number] ING CLINICIAN:SHUKRI POE:Axial CT images of the [...] osseous abnormality.CONCLUSION: IMPRESSION:No mass or lymphadenopathy. Normal [facility] Comprehensive Metabolic Pane nii 04-17-2017 Albumin mass conc 4.3 g/dL Normal 3.4-5.0 [facility] Comment on above: Performed By: #### 1 830103 ####[facility] [address] [place] [address] Albumin/Globulin mass ratio 1.2 {ratio} Normal 0.9-2.4 [facility] Comment on above: Performed By: #### 1 480390 ####[facility] [address]xw[address] [place] [address] ALP enzyme act/vol 62 U/L Normal 45-117 [facility] Comment on above: Performed By: #### 1 803252 ####[facility] Rro[address] [place] [address] ALT enzyme act/vol 11 U/L Normal 7-45 [facility] Comment on above: Performed By: #### 1 423236 ####[facility] Msm[address] [place] [address] Anion gap 3 molar conc 14 mmol/L Normal 10-20 [facility] Comment on above: Performed By: #### 1 473251 ####[facility] T[address] [place] [address] AST enzyme act/vol 18 U/L Normal 13-39 [facility] Comment on above: Performed By: #### 1 202312 ####[facility] Tfa[address] [place] [address] Bilirubin mass conc 0.3 mg/dL Normal 0.0-1.2 [facility] Comment on above: Performed By: #### 1 948142 ####[facility] [address] [place] [address] Calcium mass conc 9.4 mg/dL Normal 8.6-10.3 [facility] Comment on above: Performed By: #### 1 347827 ####[facility] [address] [place] [address] Chloride molar conc 103 mmol/L Normal 98-107 [facility] Comment on above: Performed By: #### 1 577555 ####[facility] Fsg[address] [place] [address] Creatinine mass conc 1.10 mg/dL High 0.50-1.05 [facility] Comment on above: Performed By: #### 1 860516 ####[facility] [address] [place] [address] GFR/1.73 sq M.predicted MDRD vol rate/area mL/min/{1.73_m2} Normal [facility] [facility] Comment on above: Result Comment: Inte rpretation for Chronic Kidney Disease:Stages 1&2 >60 Healthy or potential kidney damage.Mild decrease of GFR.Stage 3 30-59 Moderate decrease of GFR.Stage 4 15-29 Severe decrease of GFR.Stage 5 <15 Kidney failure or on dialysis. Performed By: #### [id number] ####[facility] [id number] [place] [address] Glucose mass conc 91 mg/dL Normal 70-100 [facility] Comment on above: Performed By: #### [id number] ####[facility] [id number] [facility] [address] HCO3 molar conc (Bld) 24 mmol/L Normal 21-32 [facility] Comment on above: Performed By: #### 1 [id number] ####[facility] [address] [facility] [address] Potassium molar conc 3.6 mmol/L Normal 3.5-5.1 [facility] Comment on above: Performed By: #### 1 [id number] ####[facility] [address] [facility] [address] Protein mass conc 7.8 g/dL Normal 6.4-8.2 [facility] Comment on above: Performed By: #### 1 [id number] ####[facility] [address] [place] [address] Sodium molar conc 137 mmol/L Normal 136-145 [facility] Comment on above: Performed By: #### 1 [id number] ####[facility] [address] [place] [address] Urea nitrogen mass conc 14 mg/dL Normal 6-23 [facility] Comment on above: Performed By: #### 1 [id number] ####[facility] [address] [place] [address] Urea nitrogen/Creatinine mass ratio 13 mg/mg Normal 5-25 [facility] Comment on above: Performed By: #### 1 [id number] ####[facility] [address] [place] [address] Test (Serum)on Test, Serum Negative Normal [facility] Comment on above: Performed By: #### [id number] ####[facility] [id number] [place] [id number] Culture, urine Bacteria identified Cx Nom (U) Positive [facility] Work Phone: Vital Signs Date Time Vital Sign Value Performing Clinician Facility 11-20-2024 13:59-0400 Body height 160.02 cm No Primary Care Physician [facility] 11-20-2024 13:59-0400 Body mass index (BMI) [Ratio] 41.8 kg/m2 No Primary Care Physician [facility] 11-20-2024 13:59-0400 Body weight 107.1 kg No Primary Care Physician [facility] 11-20-2024 13:59-0400 Diastolic blood pressure 86 mm[Hg] No Primary Care Physician [facility] 11-20-2024 13:59-0400 Systolic blood pressure 134 mm[Hg] No Primary Care Physician [facility] 11-15-2024 14:10-0400 Body height 160.02 cm No Primary Care Physician [facility] 11-15-2024 14:10-0400 Body mass index (BMI) [Ratio] 41.8 kg/m2 No Primary Care Physician [facility] 11-15-2024 14:10-0400 Body weight 107.16 kg No Primary Care Physician [facility] 11-15-2024 14:10-0400 Diastolic blood pressure 86 mm[Hg] No Primary Care Physician [facility] 11-15-2024 14:10-0400 Systolic blood pressure 129 mm[Hg] No Primary Care Physician [facility] 11-09-2024 14:36-0400 Body height 160.02 cm No Primary Care Physician [facility] 11-09-2024 14:36-0400 Body mass index (BMI) [Ratio] 41.6 kg/m2 No Primary Care Physician [facility] 11-09-2024 14:36-0400 Body weight 106.65 kg No Primary Care Physician [facility] 11-09-2024 14:36-0400 Diastolic blood pressure 77 mm[Hg] No Primary Care Physician [facility] 11-09-2024 14:36-0400 Systolic blood pressure 124 mm[Hg] No Primary Care Physician [facility] 11-02-2024 02:22-0400 Body height 160.02 cm No Primary Care Physician [facility] 11-02-2024 02:22-0400 Body mass index (BMI) [Ratio] 41.2 kg/m2 No Primary Care Physician [facility] 11-02-2024 02:22-0400 Body weight 105.6 kg No Primary Care Physician [facility] 11-02-2024 01:54-0400 Body temperature 97.6 [degF] No Primary Care Physician [facility] 11-02-2024 01:54-0400 Respiratory rate 16 /min No Primary Care Physician [facility] 11-02-2024 01:53-0400 Diastolic blood pressure 72 mm[Hg] No Primary Care Physician [facility] 11-02-2024 01:53-0400 Heart rate 69 /min No Primary Care Physician [facility] 11-02-2024 01:53-0400 SaO2% (BldA) [Mass fraction] 98 % No Primary Care Physician [facility] 11-02-2024 01:53-0400 Systolic blood pressure 117 mm[Hg] No Primary Care Physician [facility] 11-01-2024 10:28-0400 Body height 160.02 cm No Primary Care Physician [facility] 11-01-2024 10:28-0400 Body mass index (BMI) [Ratio] 41.3 kg/m2 No Primary Care Physician [facility] 11-01-2024 10:28-0400 Body weight 105.85 kg No Primary Care Physician [facility] 11-01-2024 10:28-0400 Diastolic blood pressure 80 mm[Hg] No Primary Care Physician [facility] 11-01-2024 10:28-0400 Systolic blood pressure 135 mm[Hg] No Primary Care Physician [facility] 10-20-2024 09:02-0400 Body height 160.02 cm No Primary Care Physician [facility] 10-20-2024 08:58-0400 Body mass index (BMI) [Ratio] 40.9 kg/m2 No Primary Care Physician [facility] 10-20-2024 08:58-0400 Body weight 104.77 kg No Primary Care Physician [facility] 10-20-2024 08:58-0400 Diastolic blood pressure 78 mm[Hg] No Primary Care Physician [facility] 10-20-2024 08:58-0400 Systolic blood pressure 119 mm[Hg] No Primary Care Physician [facility] 10-02-2024 09:03-0400 Body height 160.02 cm No Primary Care Physician [facility] 10-02-2024 09:02-0400 Body mass index (BMI) [Ratio] 40.7 kg/m2 No Primary Care Physician [facility] 10-02-2024 09:02-0400 Body weight 104.32 kg No Primary Care Physician [facility] 10-02-2024 09:02-0400 Diastolic blood pressure 76 mm[Hg] No Primary Care Physician [facility] 10-02-2024 09:02-0400 Systolic blood pressure 124 mm[Hg] No Primary Care Physician [facility] 09-20-2024 09:57-0400 Body mass index (BMI) [Ratio] 39.8 kg/m2 No Primary Care Physician [facility] 09-20-2024 09:57-0400 Body weight 102.05 kg No Primary Care Physician [facility] 09-20-2024 09:57-0400 Diastolic blood pressure 66 mm[Hg] No Primary Care Physician [facility] 09-20-2024 09:57-0400 Systolic blood pressure 108 mm[Hg] No Primary Care Physician [facility] 08-21-2024 08:34-0400 Body height 160.02 cm No Primary Care Physician [facility] 08-21-2024 08:31-0400 Body mass index (BMI) [Ratio] 39.6 kg/m2 No Primary Care Physician [facility] 08-21-2024 08:31-0400 Body weight 101.37 kg No Primary Care Physician [facility] 08-21-2024 08:31-0400 Diastolic blood pressure 75 mm[Hg] No Primary Care Physician [facility] 08-21-2024 08:31-0400 Systolic blood pressure 122 mm[Hg] No Primary Care Physician [facility] 07-28-2024 08:36-0400 Body mass index (BMI) [Ratio] 39.3 kg/m2 No Primary Care Physician [facility] 07-28-2024 08:36-0400 Body weight 100.69 kg No Primary Care Physician [facility] 07-28-2024 08:36-0400 Diastolic blood pressure 72 mm[Hg] No Primary Care Physician [facility] 07-28-2024 08:36-0400 Systolic blood pressure 110 mm[Hg] No Primary Care Physician [facility] 06-26-2024 09:40-0500 Body mass index (BMI) [Ratio] 38.1 kg/m2 No Primary Care Physician [facility] 06-26-2024 09:40-0500 Body weight 97.57 kg No Primary Care Physician [facility] 06-26-2024 09:40-0500 Diastolic blood pressure 76 mm[Hg] No Primary Care Physician [facility] 06-26-2024 09:40-0500 Systolic blood pressure 119 mm[Hg] No Primary Care Physician [facility] 05-24-2024 08:31-0500 Body mass index (BMI) [Ratio] 38.2 kg/m2 No Primary Care Physician [facility] 05-24-2024 08:31-0500 Body weight 97.97 kg No Primary Care Physician [facility] 05-24-2024 08:31-0500 Diastolic blood pressure 72 mm[Hg] No Primary Care Physician [facility] 05-24-2024 08:31-0500 Systolic blood pressure 116 mm[Hg] No Primary Care Physician [facility] 03-17-2024 08:55-0400 Body height 160 cm Hector Winchester [employer]ER[employer] MACHINE OPERATOR Work Phone: [facility] 03-17-2024 08:55-0400 Body mass index (BMI) [Ratio] 35.78 kg/m2 Hector Trikehinde [employer] M[employer]ER.[employer]DR[employer] MACHINE OPERATOR Work Phone: [facility] 03-17-2024 08:55-0400 Body temperature 97.7 [degF] Hector Trikehinde [employer] M[employer]ER.[employer]OURDR[employer] MACHINE OPERATOR Work Phone: [facility] 03-17-2024 08:55-0400 Body weight 91.63 kg Hector Trikehinde OIL MIXER.FOURDRIN[employer] MACHINE OPERATOR Work Phone: [facility] 03-17-2024 08:55-0400 Diastolic blood pressure 70 mm[Hg] Hector Winchester [employer] M[employer]ER.FOURDR[employer] MACHINE OPERATOR Work Phone: [facility] 03-17-2024 08:55-0400 Heart rate 72 /min Hector Winchester [employer]IL MIXER.FOURDR[employer] MACHINE OPERATOR Work Phone: [facility] 03-17-2024 08:55-0400 SaO2% (BldA) [Mass fraction] 98 % Hector Winchester OIL MIXER.FOURDR[employer] MACHINE OPERATOR Work Phone: [facility] 03-17-2024 08:55-0400 Systolic blood pressure 110 mm[Hg] Hector Winchester [employer] MIXER.FOURDR[employer] MACHINE OPERATOR Work Phone: [facility] 01-04-2024 11:17-0400 Body height 160 cm Hector Winchester OIL MIXER.FOURDR[employer] MACHINE OPERATOR Work Phone: [facility] 01-04-2024 11:17-0400 Body mass index (BMI) [Ratio] 39.15 kg/m2 Hector Trikehinde [employer] M[employer]ER.FOURDR[employer] MACHINE OPERATOR Work Phone: [facility] 01-04-2024 11:17-0400 Body temperature 98.29 [degF] Hector Trikehinde OIL MIXER.FOURDRINIER MACHINE OPERATOR Work Phone: [facility] 01-04-2024 11:17-0400 Body weight 100.25 kg Hector Marsha [employer]IL MIXER.FOURDR[employer] MACHINE OPERATOR Work Phone: [facility] 01-04-2024 11:17-0400 Diastolic blood pressure 70 mm[Hg] Hector Winchester OIL MIXER.FOURDR[employer] MACHINE OPERATOR Work Phone: [facility] 01-04-2024 11:17-0400 Heart rate 73 /min Hector Winchester OIL MIXER.FOURDRINIER MACHINE OPERATOR Work Phone: [facility] 01-04-2024 11:17-0400 SaO2% (BldA) [Mass fraction] 99 % Hector Winchester OIL MIXER.FOURDRINIER MACHINE OPERATOR Work Phone: [facility] 01-04-2024 11:17-0400 Systolic blood pressure 110 mm[Hg] Hector Winchester OIL MIXER.FOURDRINIER MACHINE OPERATOR Work Phone: [facility] 10-22-2023 17:02-0400 Body height 160 cm Caitlin Garcia OIL MIXER-[employer] MACHINE OPERATOR Work Phone: [facility] 10-22-2023 17:02-0400 Body mass index (BMI) [Ratio] 37.91 kg/m2 Caitlin Garcia OIL MIXER-[employer]DR[employer] MACHINE OPERATOR Work Phone: [facility] 10-22-2023 17:02-0400 Body temperature 98.1 [degF] Caitlin Garcia OIL MIXER-F[employer]DR[employer] MACHINE OPERATOR Work Phone: [facility] 10-22-2023 17:02-0400 Body weight 97.07 kg Caitlin Garcia OIL MIXER-F[employer]DR[employer] MACHINE OPERATOR Work Phone: [facility] 10-22-2023 17:02-0400 Diastolic blood pressure 71 mm[Hg] Caitlin Paulata OIL MIXER-F[employer]DR[employer]IER MACHINE OPERATOR Work Phone: [facility] 10-22-2023 17:02-0400 Heart rate 71 /min Caitlin Paulata OIL MIXER-FOURDRINIER MACHINE OPERATOR Work Phone: [facility] 10-22-2023 17:02-0400 Respiratory rate 14 /min Caitlin Garcia OIL MIXER-FOURDR[employer]IER MACHINE OPERATOR Work Phone: [facility] 10-22-2023 17:02-0400 SaO2% (BldA) [Mass fraction] 97 % Caitlin Mehta OIL MIXER-FOURDR[employer]IER MACHINE OPERATOR Work Phone: [facility] 10-22-2023 17:02-0400 Systolic blood pressure 108 mm[Hg] Caitlin Mehta OIL MIXER-FOURDR[employer]IER MACHINE OPERATOR Work Phone: [facility] 03-12-2023 14:17-0400 Body height 160.02 cm No Primary Care Physician [facility] 03-12-2023 14:17-0400 Body mass index (BMI) [Ratio] 40 kg/m2 No Primary Care Physician [facility] 03-12-2023 14:17-0400 Body temperature 97.4 [degF] No Primary Care Physician [facility] 03-12-2023 14:17-0400 Body weight 102.51 kg No Primary Care Physician [facility] 03-12-2023 14:17-0400 Diastolic blood pressure 76 mm[Hg] No Primary Care Physician [facility] 03-12-2023 14:17-0400 Heart rate 102 /min No Primary Care Physician [facility] 03-12-2023 14:17-0400 Respiratory rate 18 /min No Primary Care Physician [facility] 03-12-2023 14:17-0400 SaO2% (BldA) [Mass fraction] 100 % No Primary Care Physician [facility] 03-12-2023 14:17-0400 Systolic blood pressure 128 mm[Hg] No Primary Care Physician [facility] 03-02-2023 16:26-0400 Body temperature 97.5 [degF] No Primary Care Physician [facility] 03-02-2023 16:26-0400 Diastolic blood pressure 80 mm[Hg] No Primary Care Physician [facility] 03-02-2023 16:26-0400 Heart rate 74 /min No Primary Care Physician [facility] 03-02-2023 16:26-0400 Respiratory rate 16 /min No Primary Care Physician [facility] 03-02-2023 16:26-0400 SaO2% (BldA) [Mass fraction] 99 % No Primary Care Physician [facility] 03-02-2023 16:26-0400 Systolic blood pressure 118 mm[Hg] No Primary Care Physician [facility] 03-02-2023 14:00-0400 Inhaled oxygen flow rate 2 L/min No Primary Care Physician [facility] 03-02-2023 09:44-0400 Body height 160.02 cm No Primary Care Physician [facility] 03-02-2023 09:44-0400 Body mass index (BMI) [Ratio] 40 kg/m2 No Primary Care Physician [facility] 03-02-2023 09:44-0400 Body weight 102.5 kg No Primary Care Physician [facility] 02-11-2023 10:06-0400 Body mass index (BMI) [Ratio] 40.1 kg/m2 No Primary Care Physician [facility] 02-11-2023 10:06-0400 Body temperature 96.7 [degF] No Primary Care Physician [facility] 02-11-2023 10:06-0400 Body weight 102.73 kg No Primary Care Physician [facility] 02-11-2023 10:06-0400 Diastolic blood pressure 81 mm[Hg] No Primary Care Physician [facility] 02-11-2023 10:06-0400 Heart rate 81 /min No Primary Care Physician [facility] 02-11-2023 10:06-0400 Respiratory rate 17 /min No Primary Care Physician [facility] 02-11-2023 10:06-0400 SaO2% (BldA) [Mass fraction] 97 % No Primary Care Physician [facility] 02-11-2023 10:06-0400 Systolic blood pressure 120 mm[Hg] No Primary Care Physician [facility] 01-11-2023 14:46-0400 Body height 160 cm No Pcp Required [facility] 01-11-2023 14:46-0400 Body temperature 97.7 [degF] No Pcp Required [facility] 01-11-2023 14:46-0400 Diastolic blood pressure 79 mm[Hg] No Pcp Required [facility] 01-11-2023 14:46-0400 Heart rate 82 /min No Pcp Required [facility] 01-11-2023 14:46-0400 SaO2% (BldA) [Mass fraction] 98 % No Pcp Required [facility] 01-11-2023 14:46-0400 Systolic blood pressure 121 mm[Hg] No Pcp Required [facility] 10-18-2022 07:00-0400 Diastolic blood pressure 67 mm[Hg] No Pcp Required [facility] 10-18-2022 07:00-0400 Heart rate 68 /min No Pcp Required [facility] 10-18-2022 07:00-0400 Respiratory rate 16 /min No Pcp Required [facility] 10-18-2022 07:00-0400 SaO2% (BldA) [Mass fraction] 98 % No Pcp Required [facility] 10-18-2022 07:00-0400 Systolic blood pressure 104 mm[Hg] No Pcp Required [facility] 08-18-2022 09:30-0400 Body temperature 97.7 [degF] No Primary Care Physician [facility] 08-18-2022 09:30-0400 Diastolic blood pressure 53 mm[Hg] No Primary Care Physician [facility] 08-18-2022 09:30-0400 Heart rate 92 /min No Primary Care Physician [facility] 08-18-2022 09:30-0400 Respiratory rate 16 /min No Primary Care Physician [facility] 08-18-2022 09:30-0400 SaO2% (BldA) [Mass fraction] 97 % No Primary Care Physician [facility] 08-18-2022 09:30-0400 Systolic blood pressure 101 mm[Hg] No Primary Care Physician [facility] 08-16-2022 08:04-0400 Body height 160.02 cm No Primary Care Physician [facility] 08-16-2022 08:04-0400 Body mass index (BMI) [Ratio] 40.7 kg/m2 No Primary Care Physician [facility] 08-16-2022 08:04-0400 Body weight 104.32 kg No Primary Care Physician [facility] 08-10-2022 11:12-0400 Body mass index (BMI) [Ratio] 40.4 kg/m2 No Primary Care Physician [facility] 08-10-2022 11:12-0400 Body weight 103.64 kg No Primary Care Physician [facility] 08-10-2022 11:12-0400 Diastolic blood pressure 77 mm[Hg] No Primary Care Physician [facility] 08-10-2022 11:12-0400 Systolic blood pressure 116 mm[Hg] No Primary Care Physician [facility] 08-03-2022 10:01-0400 Body mass index (BMI) [Ratio] 39.9 kg/m2 No Primary Care Physician [facility] 08-03-2022 10:01-0400 Body weight 102.11 kg No Primary Care Physician [facility] 08-03-2022 10:01-0400 Diastolic blood pressure 84 mm[Hg] No Primary Care Physician [facility] 08-03-2022 10:01-0400 Systolic blood pressure 120 mm[Hg] No Primary Care Physician [facility] 07-27-2022 10:32-0400 Body height 160.02 cm No Primary Care Physician [facility] 07-27-2022 10:30-0400 Body mass index (BMI) [Ratio] 40.4 kg/m2 No Primary Care Physician [facility] 07-27-2022 10:30-0400 Body weight 103.58 kg No Primary Care Physician [facility] 07-27-2022 10:30-0400 Diastolic blood pressure 74 mm[Hg] No Primary Care Physician [facility] 07-27-2022 10:30-0400 Systolic blood pressure 126 mm[Hg] No Primary Care Physician [facility] 07-25-2022 10:53-0500 Body temperature 98.4 [degF] No Primary Care Physician [facility] 07-25-2022 10:53-0500 Diastolic blood pressure 59 mm[Hg] No Primary Care Physician [facility] 07-25-2022 10:53-0500 Heart rate 96 /min No Primary Care Physician [facility] 07-25-2022 10:53-0500 SaO2% (BldA) [Mass fraction] 97 % No Primary Care Physician [facility] 07-25-2022 10:53-0500 Systolic blood pressure 119 mm[Hg] No Primary Care Physician [facility] 07-24-2022 14:50-0500 Body height 160.02 cm No Primary Care Physician [facility] 07-24-2022 14:50-0500 Body mass index (BMI) [Ratio] 41 kg/m2 No Primary Care Physician [facility] 07-24-2022 14:50-0500 Body weight 105 kg No Primary Care Physician [facility] 07-20-2022 12:11-0500 Body weight 103.87 kg No Primary Care Physician [facility] 07-20-2022 12:11-0500 Diastolic blood pressure 72 mm[Hg] No Primary Care Physician [facility] 07-20-2022 12:11-0500 Systolic blood pressure 113 mm[Hg] No Primary Care Physician [facility] 07-13-2022 10:10-0500 Body mass index (BMI) [Ratio] 40.4 kg/m2 No Primary Care Physician [facility] 07-13-2022 10:10-0500 Body weight 103.53 kg No Primary Care Physician [facility] 07-13-2022 10:10-0500 Diastolic blood pressure 78 mm[Hg] No Primary Care Physician [facility] 07-13-2022 10:10-0500 Systolic blood pressure 118 mm[Hg] No Primary Care Physician [facility] 07-06-2022 10:50-0500 Body height 160.02 cm No Primary Care Physician [facility] 07-06-2022 10:50-0500 Body mass index (BMI) [Ratio] 39.7 kg/m2 No Primary Care Physician [facility] 07-06-2022 10:50-0500 Body weight 101.83 kg No Primary Care Physician [facility] 07-06-2022 10:50-0500 Diastolic blood pressure 73 mm[Hg] No Primary Care Physician [facility] 07-06-2022 10:50-0500 Systolic blood pressure 111 mm[Hg] No Primary Care Physician [facility] 06-29-2022 08:57-0500 Body mass index (BMI) [Ratio] 39.9 kg/m2 No Primary Care Physician [facility] 06-29-2022 08:57-0500 Body weight 102.22 kg No Primary Care Physician [facility] 06-29-2022 08:57-0500 Diastolic blood pressure 66 mm[Hg] No Primary Care Physician [facility] 06-29-2022 08:57-0500 Systolic blood pressure 108 mm[Hg] No Primary Care Physician [facility] 06-22-2022 14:38-0500 Body mass index (BMI) [Ratio] 39.8 kg/m2 No Primary Care Physician [facility] 06-22-2022 14:38-0500 Body weight 102.05 kg No Primary Care Physician [facility] 06-22-2022 14:38-0500 Diastolic blood pressure 67 mm[Hg] No Primary Care Physician [facility] 06-22-2022 14:38-0500 Systolic blood pressure 112 mm[Hg] No Primary Care Physician [facility] 06-08-2022 10:46-0500 Body height 160.02 cm No Primary Care Physician [facility] 06-08-2022 10:45-0500 Body mass index (BMI) [Ratio] 39.3 kg/m2 No Primary Care Physician [facility] 06-08-2022 10:45-0500 Body weight 100.69 kg No Primary Care Physician [facility] 06-08-2022 10:45-0500 Diastolic blood pressure 70 mm[Hg] No Primary Care Physician [facility] 06-08-2022 10:45-0500 Systolic blood pressure 116 mm[Hg] No Primary Care Physician [facility] 05-27-2022 11:37-0500 Diastolic blood pressure 74 mm[Hg] No Primary Care Physician [facility] 05-27-2022 11:37-0500 Systolic blood pressure 110 mm[Hg] No Primary Care Physician [facility] 05-27-2022 11:35-0500 Body weight 99.96 kg No Primary Care Physician [facility] 05-12-2022 13:10-0500 Diastolic blood pressure 68 mm[Hg] No Primary Care Physician [facility] 05-12-2022 13:10-0500 Systolic blood pressure 128 mm[Hg] No Primary Care Physician [facility] 05-12-2022 12:57-0500 Body mass index (BMI) [Ratio] 39.2 kg/m2 No Primary Care Physician [facility] 05-12-2022 12:57-0500 Body weight 100.41 kg No Primary Care Physician [facility] 04-13-2022 14:36-0500 Body mass index (BMI) [Ratio] 38.6 kg/m2 No Primary Care Physician [facility] 04-13-2022 14:36-0500 Body weight 98.88 kg No Primary Care Physician [facility] 04-13-2022 14:36-0500 Diastolic blood pressure 76 mm[Hg] No Primary Care Physician [facility] 04-13-2022 14:36-0500 Systolic blood pressure 138 mm[Hg] No Primary Care Physician [facility] 03-31-2022 15:41-0500 Body height 160 cm Ellen Veras Other Phone: [facility] 03-31-2022 15:41-0500 Body temperature 96.98 [degF] Ellen Veras Other Phone: [facility] 03-31-2022 15:41-0500 Diastolic blood pressure 76 mm[Hg] Ellen Veras Other Phone: [facility] 03-31-2022 15:41-0500 Heart rate 88 /min Ellen Veras Other Phone: [facility] 03-31-2022 15:41-0500 Respiratory rate 16 /min Ellen Veras Other Phone: [facility] 03-31-2022 15:41-0500 SaO2% (BldA) [Mass fraction] 100 % Ellen Veras Other Phone: [facility] 03-31-2022 15:41-0500 Systolic blood pressure 122 mm[Hg] Ellen Veras Other Phone: [facility] 03-16-2022 14:23-0400 Body mass index (BMI) [Ratio] 38.5 kg/m2 No Primary Care Physician [facility] 03-16-2022 14:23-0400 Body weight 98.65 kg No Primary Care Physician [facility] 03-16-2022 14:23-0400 Diastolic blood pressure 76 mm[Hg] No Primary Care Physician [facility] 03-16-2022 14:23-0400 Systolic blood pressure 128 mm[Hg] No Primary Care Physician [facility] 02-16-2022 14:18-0400 Body mass index (BMI) [Ratio] 38.6 kg/m2 No Primary Care Physician [facility] 02-16-2022 14:18-0400 Body weight 98.88 kg No Primary Care Physician [facility] 02-16-2022 14:18-0400 Diastolic blood pressure 78 mm[Hg] No Primary Care Physician [facility] 02-16-2022 14:18-0400 Systolic blood pressure 126 mm[Hg] No Primary Care Physician [facility] 01-20-2022 14:51-0400 Body height 160.02 cm No Primary Care Physician [facility] Work Phone: 01-20-2022 14:51-0400 Body mass index (BMI) [Ratio] 38.8 kg/m2 No Primary Care Physician [facility] Work Phone: 01-20-2022 14:51-0400 Body weight 99.5 kg No Primary Care Physician [facility] Work Phone: 01-20-2022 14:51-0400 Diastolic blood pressure 82 mm[Hg] No Primary Care Physician [facility] Work Phone: 01-20-2022 14:51-0400 Systolic blood pressure 125 mm[Hg] No Primary Care Physician [facility] Work Phone: Encounters Encounter Date Encounter Type Care Provider Facility Start: 11-20-2024 End: 11-20-2024 ambulatory No Primary Care Physician Facility:[facility] Start: 11-20-2024 End: 11-20-2024 Patient encounter procedure Cristy Abreu CNM -[facility] Work Phone: Start: 11-15-2024 End: 11-15-[address] Evelyn Villa DO -[facility] Work Phone: Start: 11-15-2024 End: 11-15-2024 ambulatory No Primary Care Physician -[facility] Start: 11-09-2024 End: 11-09-[address] Penelope Yang MD -[facility] Work Phone: Start: 11-09-2024 End: 11-09-2024 ambulatory No Primary Care Physician [facility] Work Phone: Start: 11-06-2024 End: 11-06-2024 ambulatory No Primary Care Physician -[facility] Start: 11-06-2024 End: 11-06-[address] Evelyn Villa DO -[facility] Work Phone: Start: 11-05-2024 End: 11-06-2024 ambulatory Evelyn Villa Facility:[facility] Start: 11-05-2024 Non-patient / Non-visit Dr. Dheeraj Yang MD -[facility] Start: 11-02-2024 End: 11-02-2024 ambulatory No Primary Care Physician [facility] Work Phone: Start: 11-02-2024 End: 11-02-[address] Penelope Yang MD -[facility] Work Phone: Start: 11-02-2024 Non-patient / Non-visit Dr. Dheeraj Yang MD -[facility] Start: 11-01-2024 End: 11-01-2024 ambulatory No Primary Care Physician [facility] Work Phone: Start: 11-01-2024 End: 11-01-[address] Penelope Yang MD -[facility] Work Phone: Start: 11-01-2024 End: 11-01-[address] Penelope Yang MD -[facility] Work Phone: Start: 11-01-2024 End: 11-01-2024 ambulatory No Primary Care Physician [facility] Work Phone: Start: 11-01-2024 End: 11-01-2024 ambulatory No Primary Care Physician Facility:[facility] Start: 11-01-2024 Non-patient / Non-visit Dr. Dheeraj Yang MD -[facility] Start: 10-20-2024 End: 10-20-2024 Patient encounter procedure Cristy Abreu CNM -[facility] Work Phone: Start: 10-20-2024 End: 10-20-2024 ambulatory No Primary Care Physician [facility] Work Phone: Start: 10-04-2024 End: 10-04-2024 ambulatory No Primary Care Physician [facility] Work Phone: Start: 10-04-2024 End: 10-04-[address] Evelyn Villa DO -[facility] Work Phone: Start: 10-04-2024 End: 10-04-2024 ambulatory Evelyn Villa Facility:[facility] Start: 10-02-2024 End: 10-02-[address] Evelyn Villa DO -[facility] Work Phone: Start: 10-02-2024 End: 10-02-2024 ambulatory No Primary Care Physician [facility] Work Phone: Start: 09-20-2024 End: 09-20-2024 Patient encounter procedure Gui SERNA -[facility] Work Phone: Start: 09-20-2024 End: 09-20-2024 ambulatory No Primary Care Physician Facility:[facility] Start: 08-21-2024 End: 08-21-[address] Penelope Yang MD -[facility] Work Phone: Start: 08-21-2024 End: 08-21-2024 ambulatory No Primary Care Physician [facility] Work Phone: Start: 08-21-2024 End: 08-21-2024 ambulatory No Primary Care Physician Facility:[facility] Start: 07-28-2024 End: 07-28-2024 Patient encounter procedure Rina Mead CNM -[facility] Work Phone: Start: 07-28-2024 End: 07-28-2024 ambulatory Rina Mead Facility:[facility] Start: 07-17-2024 End: 07-17-2024 ambulatory KURT LILLY [facility] Start: 07-06-2024 End: 07-06-2024 ambulatory CRYSTAL ORTIZ [facility] Start: 06-26-2024 End: 06-26-2024 Patient encounter procedure Cristy Abreu CNM -[facility] Work Phone: Start: 06-26-2024 End: 06-26-2024 ambulatory No Primary Care Physician Facility:[facility] Start: 06-17-2024 End: 06-17-2024 ambulatory HECTOR WINCHESTER Facility:[facility] Start: 06-17-2024 End: 06-17-2024 Telemedicine consultation with patient Julia Browne FOURDRINIER MACHINE OPERATOR Work Phone: Telemedicine Comment on above: Acute cough (Primary Dx); Acute URI; Sinus drainage; PND (post-nasal drip); 16 weeks gestation of Start: 05-24-2024 End: 05-24-2024 Patient encounter procedure Gui Sloan NP-C -[facility] Work Phone: Start: 05-24-2024 End: 05-24-2024 ambulatory No Primary Care Physician Facility:[facility] Start: 04-24-2024 End: 04-24-2024 ambulatory Evelyn Villa Facility:[facility] Start: 04-24-2024 End: 04-24-2024 ambulatory [facility] Start: 03-17-2024 End: 03-17-2024 Patient encounter procedure Hector Winchester APRN.FOURDRINIER MACHINE OPERATOR Work Phone: [facility] Comment on above: MADDIE (generalized anx iety disorder) (Primary Dx); Tremor; Screening for lipid disorders; Psoriasis of scalp Start: 03-17-2024 End: 03-17-2024 ambulatory HECTOR WINCHESTER Facility:[facility] Start: 02-16-2024 End: 02-16-2024 Telephone encounter Hector Winchester APRN.FOURDRINIER MACHINE OPERATOR Work Phone: [facility] Comment on above: Results Start: 02-15-2024 End: 02-15-2024 ambulatory HECTOR WINCHESTER Facility:[facility] Start: 01-11-2024 End: 01-11-2024 ambulatory Hector Winchester OIL MIXER.FOURDRINIER MACHINE OPERATOR Work Phone: [facility] Comment on above: Medication Start: 01-04-2024 End: 01-04-2024 Patient encounter procedure Hector Winchester OIL MIXER.FOURDRINIER MACHINE OPERATOR Work Phone: [facility] Comment on above: MADDIE (generalized anx iety disorder) (Primary Dx); Urinary frequency; Incomplete bladder emptying; Acute pain of left knee Start: 01-04-2024 End: 01-04-2024 ambulatory HECTOR WINCHESTER Facility:[facility] Start: 10-22-2023 End: 10-22-2023 Patient encounter procedure Caitlin Danielito Paulata OIL MIXER-FOURDRINIER MACHINE OPERATOR Work Phone: [facility] Comment on above: Acute laryngitis (Pr imary Dx); Acute sinusitis, recurrence not specified, unspecified location Start: 10-22-2023 End: 10-22-2023 ambulatory [facility] Start: 03-12-2023 End: 03-12-2023 Emergency department patient visit No Primary Care Physician [facility] Work Phone: Start: 03-02-2023 Non-patient / Non-visit No [facility] Physician [facility] Start: 03-02-2023 End: 03-02-2023 Admission to same day surgery center No Primary Care Physician [facility] Start: 03-02-2023 End: 03-02-2023 ambulatory No Primary Care Physician [facility] Work Phone: Start: 02-11-2023 End: 02-11-2023 Patient encounter procedure No Primary Care Physician [facility] Work Phone: Start: 01-11-2023 End: 01-11-2023 Emergency department patient visit Ismael Davenport [facility] Start: 10-18-2022 End: 10-18-2022 Emergency department patient visit Ana Shabazz [facility] Emergency 15 Start: 08-18-2022 Non-patient / Non-visit No Cloitlde mitul Care Physician [facility] Start: 08-17-2022 Non-patient / Non-visit No Clotilde mitul Care Physician [facility] Start: 08-16-2022 Non-patient / Non-visit No Clotilde mitul Care Physician [facility] Start: 08-16-2022 End: 08-18-2022 Evaluation and management of inpatient No Primary Care Physician [facility] Start: 08-10-2022 End: 08-10-2022 Patient encounter procedure No Primary Care Physician [facility] Start: 08-03-2022 End: 08-03-2022 Patient encounter procedure No Primary Care Physician [facility] Start: 07-27-2022 End: 07-28-2022 Evaluation and management of inpatient No Primary Care Physician [facility] Start: 07-27-2022 End: 07-28-2022 observation encounter No Primary Care Physician [facility] Work Phone: Start: 07-27-2022 End: 07-27-2022 Patient encounter procedure No Primary Care Physician [facility] Start: 07-24-2022 Non-patient / Non-visit No Clotilde mitul Care Physician [facility] Start: 07-24-2022 End: 07-25-2022 Evaluation and management of inpatient No Primary Care Physician [facility] Start: 07-24-2022 End: 07-25-2022 observation encounter No Primary Care Physician [facility] Work Phone: Start: 07-24-2022 End: 07-25-2022 ambulatory No Primary Care Physician [facility] Work Phone: Start: 07-24-2022 End: 07-25-2022 Patient encounter procedure No Primary Care Physician [facility] Start: 07-20-2022 End: 07-20-2022 Patient encounter procedure No Primary Care Physician [facility] Start: 07-13-2022 End: 07-13-2022 Patient encounter procedure No Primary Care Physician [facility] Start: 07-06-2022 End: 07-06-2022 Patient encounter procedure No Primary Care Physician [facility] Start: 06-29-2022 End: 06-29-2022 ambulatory No Primary Care Physician [facility] Work Phone: Start: 06-29-2022 End: 06-29-2022 Patient encounter procedure No Primary Care Physician [facility] Start: 06-22-2022 End: 06-22-2022 Patient encounter procedure No Primary Care Physician [facility] Start: 06-08-2022 End: 06-08-2022 Patient encounter procedure No Primary Care Physician [facility] Start: 05-27-2022 End: 05-27-2022 Patient encounter procedure No Primary Care Physician [facility] Start: 05-25-2022 End: 05-25-2022 ambulatory No Primary Care Physician [facility] Work Phone: Start: 05-25-2022 End: 05-25-2022 Patient encounter procedure No Primary Care Physician [facility]Laboratory Start: 05-12-2022 End: 05-12-2022 Patient encounter procedure No Primary Care Physician [facility] Start: 04-13-2022 End: 04-13-2022 Patient encounter procedure No Primary Care Physician [facility] Start: 03-31-2022 End: 03-31-2022 [facility] Start: 03-16-2022 End: 03-16-2022 Patient encounter procedure No Primary Care Physician [facility] Start: 02-16-2022 End: 02-16-2022 Patient encounter procedure No Primary Care Physician [facility] Start: 01-29-2022 End: 01-29-2022 ambulatory No Primary Care Physician [facility] Work Phone: Start: 01-29-2022 End: 01-29-2022 Patient encounter procedure No Primary Care Physician [facility] Start: 01-20-2022 End: 01-20-2022 ambulatory No Primary Care Physician [facility] Work Phone: Start: 01-20-2022 End: 01-20-2022 Patient encounter procedure No Primary Care Physician [facility]Laboratory, Specimen Start: 01-20-2022 End: 01-20-2022 Patient encounter procedure No Primary Care Physician [facility] Start: 07-05-2020 Patient encounter procedure Yunior Mercado [facility] [address] [employer] Work Phone: Start: 06-14-2020 Patient encounter procedure Yunior Mercado [facility] [address] [employer] Work Phone: Start: 09-08-2018 End: 09-09-2018 Patient encounter procedure Parminder Anisa Winter Facility:[facility] Start: 08-04-2018 End: 08-05-2018 Patient encounter procedure Parminder Anisa Winter Facility:[facility] Start: 07-25-2018 End: 07-26-2018 Patient encounter procedure Parminder Anisa Winter Facility:[facility] Start: 07-25-2018 End: 07-26-2018 Patient encounter procedure Parminder Winter Facility:[facility] Start: 07-14-2018 End: 07-14-2018 Patient encounter procedure Emir Youssef Facility:[facility] Start: 02-10-2018 End: 02-11-2018 Patient encounter procedure Emir Youssef Facility:[facility] Start: 02-10-2018 End: 02-11-2018 Patient encounter procedure Emir Youssef Facility:[facility] Start: 11-16-2017 End: 11-16-2017 Emergency department patient visit PARMINDER Anisa WINTER Facility:[facility] [employer] Start: 10-05-2017 End: 10-05-2017 Patient encounter procedure Lon Acosta Facility:[facility] Start: 09-21-2017 End: 09-21-2017 Patient encounter procedure Parminder Anisa Winter Facility:[facility] Start: 04-17-2017 End: 04-18-2017 Emergency department patient visit [facility] Procedures Date Procedure Procedure Detail Performing [...] Comment on above: laparoscopic 02/2023 Tonsillectomy Yunior [place] Urine culture No Primary Car e Physician Urine culture No Primary Car e Physician Plan of Treatment Date Care Activity Detail Author Start: 11-09-2045 Zoster Vaccines (1 of 2) Zoste r Vaccines (1 of 2) [facility] Start: 03-17-2025 Covid-19 Vaccine ( season) Covid-19 Vaccine ( season) [facility] Comment on above: Postponed from 01/15 (Declined at this time) Start: 03-17-2025 HPV Vaccine (2 - 3-d ose series) HPV Vaccine (2 - 3-dose series) [facility] Comment on above: Postponed from 12/19 (Declined at this time) Start: 11-21-2024 DTaP/Tdap/Td Vaccine s (8 - Td or Tdap) DTaP/Tdap/Td Vaccines (8 - Td or Tdap) [facility] Start: 11-21-2024 Urine microalbumin profile DTa P,Tdap,Td Vaccine (8 - Td or Tdap) [facility] Start: 11-13-2024 Influenza vaccination Influenza Vacc ine (#1) [facility] Comment on above: Postponed from 01/15 (Declined at this time) Start: 11-02-2024 Nonstress test [facility] Start: 11-02-2024 Obstetric monitoring [facility] Start: 11-02-2024 Vital signs measurements [facility] Start: 11-02-2024 [facility] Start: 11-01-2024 Group B Streptococcu s Culture Group B Streptococcus Culture [facility] Start: 11-01-2024 Streptococcus agalac tiae [Presence] in Unspecified specimen by Organism specific culture [facility] Start: 06-19-2024 End: 06-19-2024 Patient encounter procedure 06/19/2024 11:00 AM EST Office Visit [facility] [address] [place] [address] Hector Winchester, PAPA.[facility] [address] [place] [address] 3 MTH F/U Anxiety [facility] Comment on above: 3 MTH F/U Anxiety Start: 03-17-2024 End: 10-13-2024 CBC panel - Blood by Automated count COMPLETE BLOOD COUNT Lab Routine Tremor Expected: 03/17/2024, Expires: 10/13/2024 [facility] Work Phone: Comment on above: Expected: 03/17/2024 , Expires: 10/13/2024 Start: 03-17-2024 End: 10-13-2024 Cobalamin (Vitamin B12) [Mass/volume] in Serum or Plasma VITAMIN B12 Lab Routine Tremor Expected: 03/17/2024, Expires: 10/13/2024 [facility] Comment on above: Expected: 03/17/2024 , Expires: 10/13/2024 Start: 03-17-2024 End: 10-13-2024 Comprehensive metabolic 2000 panel - Serum or Plasma COMPREHENSIVE METABOLIC PANEL Lab Routine Tremor Expected: 03/17/2024, Expires: 10/13/2024 [facility] Comment on above: Expected: 03/17/2024 , Expires: 10/13/2024 Start: 03-17-2024 End: 10-13-2024 Lipid 1996 panel - Serum or Plasma LIPID PANEL BASIC Lab Routine Screening for lipid disorders Expected: 03/17/2024, Expires: 10/13/2024 [facility] Comment on above: Expected: 03/17/2024 , Expires: 10/13/2024 Start: 03-17-2024 End: 10-13-2024 Thyrotropin [Units/volume] in Serum or Plasma THYROID STIMULATING HORMONE Lab Routine Tremor Expected: 03/17/2024, Expires: 10/13/2024 [facility] Comment on above: Expected: 03/17/2024 , Expires: 10/13/2024 Start: 03-17-2024 End: 03-17-2024 Patient encounter procedure Urology Comment on above: OAB 6 week follow up anx iety Start: 02-15-2024 End: 02-15-2024 Patient encounter procedure 02/15/2024 1:00 PM EDT Office Visit [facility] [address] [place] [address] Hector Winchetser, PAPA.FOURDRINIER MACHINE OPERATOR [address] [place] [address] 6 week follow up anxiety [facility] Comment on above: 6 week follow up anx iety Start: 01-16-2024 Covid-19 Vaccine ( season) Covid-19 Vaccine ( season) [facility] Start: 01-16-2024 Influenza vaccination [facility] Start: 01-04-2024 End: 04-04-2024 Urinalysis complete panel - Urine URINALYSIS, WITH MICROSCOPIC Lab Routine Urinary frequency Incomplete bladder emptying Expected: 01/04/2024, Expires: 04/04/2024 [facility] Work Phone: Comment on above: Expected: 01/04/2024 , Expires: 04/04/2024 Start: 03-12-2023 [facility] Start: 03-02-2023 Anes intraperitoneal upper abdomen w/laps nos ANESTH SURG UPPER ABDOMEN [facility] Start: 03-02-2023 Laps surg cholecyste ctomy w/cholangiography LAPARO CHOLECYSTECTOMY/GRAPH [facility] [place] Start: 03-02-2023 Patient discharge [facility] Start: 03-02-2023 Cholangiogram Cholangiogram/ O R,Initial [facility] Start: 03-02-2023 XR Biliary ducts and Gallbladder Views W contrast IV [facility] Start: 01-15-2023 COVID-19 Vaccine () COVID-19 Vaccine () [facility] Start: 08-18-2022 Patient discharge [facility] Start: 08-16-2022 Administration of medication [facility] Start: 08-16-2022 Application of ice c ollar, cap or bag [facility] Start: 08-16-2022 Catheterization of vein [facility] Start: 08-16-2022 Introduction of urin latonya catheter [facility] Start: 08-16-2022 Measuring intake and output [facility] Start: 08-16-2022 Notification of physician [facility] Start: 08-16-2022 Procedure discontinued [facility] Start: 08-16-2022 Provision of activit y privileges [facility] Start: 08-16-2022 Vital signs measurements [facility] Start: 08-16-2022 [facility] Start: 08-16-2022 Admission procedure [facility] Start: 07-25-2022 Patient discharge [facility] Start: 07-25-2022 Patient referral to dietitian [facility] Start: 07-24-2022 Nonstress test [facility] Start: 07-24-2022 Obstetric monitoring [facility] Start: 07-24-2022 Vital signs measurements [facility] Start: 07-24-2022 Admission procedure [facility] Start: 07-24-2022 End: 07-24-2022 [facility] Start: 07-24-2022 Iv infusion hydratio n each additional hour HYDRATE IV INFUSION ADD-ON [facility] Start: 07-24-2022 Iv infusion ther pro ph addl sequential to 1 hr TX/PROPH/DG ADDL SEQ IV INF [facility] Start: 07-24-2022 Iv infusion therapy/prophylaxis /dx 1st to 1 hr THER/PROPH/DIAG IV INF INIT [facility] Start: 07-24-2022 Therapeutic injectio n iv push each new drug TX/PRO/DX INJ NEW DRUG ADDON [facility] Start: 01-20-2022 Chlamydia deoxyribon ucleic acid detection [facility] Work Phone: Start: 01-20-2022 Liquid based cervica l cytology screening [facility] Work Phone: Start: 11-09-2016 Screening for malign ant neoplasm of cervix [facility] Start: 12-19-2014 HPV Vaccine (2 - 3-d ose series) HPV Vaccine (2 - 3-dose series) [facility] Start: 12-19-2014 HPV Vaccines (2 - 3- dose series) HPV Vaccines (2 - 3-dose series) [facility] Start: 11-09-2013 Depression Screening Depression Scre ening [facility] Start: 11-09-2013 Hepatitis C screening Hepatitis C Sc [facility] Start: 11-09-2013 HIV screening HIV Screening [facility] Start: 1995 HIV screening HIV Screening [facility] Start: 1995 Lipid panel Lipid Panel [facility] Start: 1995 Yearly Adult Physical Yearly Adult P [facility] Bacteria identified in Urine by Culture [facility] Bacteria identified in Urine by Culture Urine Culture [facility] Beta-hemolytic Streptococcus culture [facility] CBC W Auto Different ial panel - Blood [facility] Work Phone: Glucose [Mass/volume ] in Serum or Plasma --1 hour post 50 g glucose PO [facility] Work Phone: Group B Streptococcu s Culture Group B Streptococcus Culture [facility] Hepatitis B surface antigen measurement [facility] Work Phone: Hepatitis C antibody measurement [facility] Work Phone: HIV 1+2 Ab+HIV1 p24 Ag [Presence] in Serum or Plasma by Immunoassay [facility] Work Phone: Neisseria gonorrhoea e rRNA [Presence] in Unspecified specimen by ABBY with probe detection [facility] Work Phone: Path report.final Dx Spec [facility] Work Phone: Patient Education [facility] Work Phone: Patient referral [facility] Work Phone: PCR test for Chlamyd ia trachomatis [facility] Work Phone: Rubella IgG measurement [facility] Work Phone: Streptococcus agalac tiae [Presence] in Unspecified specimen by Organism specific culture [facility] Treponema sp Ab [Pre sence] in Serum [facility] Work Phone: Ultrasound scan for growth [facility] End: 02-02-2025 XR Knee - left AP and Lateral and oblique XR KNEE INJURY 4V AP/LAT/OBLS LEFT Radiology Routine Acute pain of left knee 1 Occurrences starting 01/04/2024 until 02/02/2025 [facility] Comment on above: 1 Occurrences starti ng 01/04/2024 until 02/02/2025 [facility] [place] [place] Immunizations Immunization Date Immunization Notes Care Provider Sadia kinney 11-21-2014 hepatitis A vaccine, pediatric/adolescent dosage, 2 dose schedule Hector Winchester APRN.FOURDRINIER MACHINE OPERATOR Work Phone: [facility] 11-21-2014 human papilloma viru s vaccine, quadrivalent Hector Winchester APRN.FOURDRINIER MACHINE OPERATOR Work Phone: [facility] 11-21-2014 meningococcal polysaccharide (groups A, C, Y and W-135) diphtheria toxoid conjugate vaccine (MCV4P) Hector Winchester APRN.FOURDRINIER MACHINE OPERATOR Work Phone: [facility] 11-21-2014 tetanus toxoid, redu lluvia diphtheria toxoid, and acellular pertussis vaccine, adsorbed Hector Winchester OIL MIXER.FOURDRINIER MACHINE OPERATOR Work Phone: [facility] 11-21-2014 HPV, unspecified formulation Caitlin Mehta OIL MIXER-FOURDRINIER MACHINE OPERATOR Work Phone: [facility] Work Phone: 12-19-2008 meningococcal ACWY vaccine, unspecified formulation Hector Trill OIL MIXER.FOURDRINIER MACHINE OPERATOR Work Phone: [facility] 12-19-2008 tetanus toxoid, redu lluvia diphtheria toxoid, and acellular pertussis vaccine, adsorbed Hector Trill OIL MIXER.FOURDRINIER MACHINE OPERATOR Work Phone: [facility] 12-19-2008 varicella virus vaccine Raghu tin Trill OIL MIXER.FOURDRINIER MACHINE OPERATOR Work Phone: [facility] 2000 diphtheria, tetanus toxoids and acellular pertussis vaccine, unspecified formulation Hector Trill OIL MIXER.FOURDRINIER MACHINE OPERATOR Work Phone: [facility] 2000 poliovirus vaccine, unspecified formulation Hector Trill OIL MIXER.FOURDRINIER MACHINE OPERATOR Work Phone: [facility] 12-24-1998 measles, mumps and rubella virus vaccine Hcetor Trill OIL MIXER.FOURDRINIER MACHINE OPERATOR Work Phone: [facility] 05-14-1997 diphtheria, tetanus toxoids and acellular pertussis vaccine, unspecified formulation Hector Trill OIL MIXER.FOURDRINIER MACHINE OPERATOR Work Phone: [facility] 11-14-1996 haemophilus influenz ae type b vaccine, conjugate unspecified formulation Hector Trill OIL MIXER.FOURDRINIER MACHINE OPERATOR Work Phone: [facility] 11-14-1996 measles, mumps and rubella virus vaccine Hector Trill OIL MIXER.FOURDRINIER MACHINE OPERATOR Work Phone: [facility] 11-14-1996 varicella virus vaccine Raghu tin Trill OIL MIXER.FOURDRINIER MACHINE OPERATOR Work Phone: [facility] 08-04-1996 hepatitis B vaccine, pediatric or pediatric/adolescent dosage Hector Trill OIL MIXER.FOURDRINIER MACHINE OPERATOR Work Phone: [facility] 05-12-1996 diphtheria, tetanus toxoids and acellular pertussis vaccine, unspecified formulation Hector Trill OIL MIXER.FOURDRINIER MACHINE OPERATOR Work Phone: [facility] 05-12-1996 haemophilus influenz ae type b vaccine, conjugate unspecified formulation Hector Trill OIL MIXER.FOURDRINIER MACHINE OPERATOR Work Phone: [facility] 05-12-1996 poliovirus vaccine, unspecified formulation Hector Trill OIL MIXER.FOURDRINIER MACHINE OPERATOR Work Phone: [facility] 03-14-1996 diphtheria, tetanus toxoids and acellular pertussis vaccine, unspecified formulation Hector Trill OIL MIXER.FOURDRINIER MACHINE OPERATOR Work Phone: [facility] 03-14-1996 haemophilus influenz ae type b vaccine, conjugate unspecified formulation Hector Trill OIL MIXER.FOURDRINIER MACHINE OPERATOR Work Phone: [facility] 03-14-1996 poliovirus vaccine, unspecified formulation Hector Trill OIL MIXER.FOURDRINIER MACHINE OPERATOR Work Phone: [facility] 01-11-1996 diphtheria, tetanus toxoids and acellular pertussis vaccine, unspecified formulation Hector Trill OIL MIXER.FOURDRINIER MACHINE OPERATOR Work Phone: [facility] 01-11-1996 haemophilus influenz ae type b vaccine, conjugate unspecified formulation Hector Trill OIL MIXER.FOURDRINIER MACHINE OPERATOR Work Phone: [facility] 01-11-1996 poliovirus vaccine, unspecified formulation Hector Trill OIL MIXER.FOURDRINIER MACHINE OPERATOR Work Phone: [facility] 1995 hepatitis B vaccine, pediatric or pediatric/adolescent dosage Hector Trill OIL MIXER.FOURDRINIER MACHINE OPERATOR Work Phone: [facility] 1995 hepatitis B vaccine, pediatric or pediatric/adolescent dosage Hector Trill OIL MIXER.FOURDRINIER MACHINE OPERATOR Work Phone: [facility] Payers Date Payer Category Payer Self-pay 2022 Medicaid [employer] [id number] 2022-Present [phone] [address] [place] [address] Medicaid [id number] 2022 Medicaid [id number] 2017 Unknown 1995 Unknown [id number] 2.16.840.1.413378.3.579.2. 1995 Unknown [id number] 2.16.840.1.396114.3.579.2.355 1995 Unknown [id number] 2.16.840.1.250077.3.579.2. 1995 Unknown [id number] 2.16.840.1.752469.3.579.2. 1995 Unknown [id number] 2.16.840.1.844561.3.579.2. 1995 Unknown [id number] 2.16.840.1.399629.3.579.2. 1995 Unknown [id number] 2.16.840.1.458622.3.579.2. 1995 Unknown [id number] 2.16.840.1.197724.3.579.2. 1995 Unknown [id number] 2.16.840.1.960376.3.579.2. 1995 Unknown [id number] 2.16.840.1.035195.3.579.2. 1995 Unknown [id number] 2.16.840.1.990413.3.579.2.1068 1995 Unknown [id number] 2.16.840.1.598716.3.579.2.1068 1995 Unknown [id number] 2.16.840.1.899385.3.579.2.1243 1995 Unknown [id number] 2.16.840.1.844476.3.579.2.479 1995 Unknown [id number] 2.16.840.1.118317.3.579.2.479 Unknown [id number] Unknown [id number] 2.16.840.1.040163.3.579.2.462 Unknown [id number] 2.16.840.1.929440.3.579.2.462 Unknown [id number] 2.16.840.1.558559.3.579.2.462 Unknown [id number] 2.16.840.1.726389.3.579.2.462 Unknown [id number] 2.16.840.1.313088.3.579.2.462 Unknown [id number] 2.16.840.1.451921.3.579.2.462 Unknown [id number] 2.840.1.945871.3.579.2.462 Unknown [id number] 2.840.1.655172.3.579.2.462 Unknown [id number] 2.840.1.676644.3.579.2.462 Unknown [id number] 2.840.1.047653.3.579.2.462 Unknown [id number] 2.16840.1.923183.3.579.2.462 Unknown [id number] 2.16840.1.166200.3.579.2.462 Unknown [id number] 2.16.840.1.834281.3.579.2.462 Unknown [id number] 2.840.1.360606.3.579.2.462 Unknown [id number] 2.16.840.1.923142.3.579.2.462 Unknown [id number] 2.16.840.1.974026.3.579.2.462 Unknown [id number] 2.16.840.1.111500.3.579.2.462 Unknown [id number] 2.16.840.1.815934.3.579.2.462 Unknown [id number] 2.16840.1.768144.3.579.2.462 Unknown [id number] 2.16.840.1.081934.3.579.2.462 Unknown [id number] 2.16.840.1.536235.3.579.2.462 Social History Date Type Detail Facility Start: 01-20-2022 End: 03-12-2023 Tobacco smoking status NHIS Unknown if ever smoked [facility] Start: 1995 Sex Assigned At Female W [facility] Start: 10-22-2023 End: 04-18-2024 Tobacco smoking status NHIS Never smoked tobacco [facility] Work Phone: Start: 10-22-2023 End: 01-04-2024 Tobacco use and exposure Smokeless tobacco non-user [facility] Work Phone: Start: 10-22-2023 End: 02-15-2024 History of Social function [facility] Work Phone: Start: 10-22-2023 End: 02-15-2024 Tobacco use panel [facility] Work Phone: Start: 1995 Sex assigned at Not on file U [facility] Work Phone: Start: 10-12-2023 End: 10-22-2023 Exposure to SARS-CoV-2 (event) Not sure [facility] Start: 01-04-2024 End: 03-17-2024 Alcoholic beverage intake Current drinker of alcohol (finding) [facility] Adult Depression Screening Assessment 0 [facility] Start: 01-04-2024 Alcohol Comment maybe twice a year [facility] Start: 08-24-2024 Sex Female (finding) [facility] NEGATED: Highlighted [facility] [address] [place] Work Phone: NEGATED: Highlighted row [facility] Medical Equipment Procedure Code Equipment Code Equipment [...] cholecystectomy with exploration of common bile duct [employer] Start: 03-02-2023 Total cholecystectomy with exploration of common bile duct [facility] Start: 03-02-2023 Goals Date Patient Goal Desired Activity /State Functional Status Date Assessment Result Facility NEGATED: Highlighted row Functional performance Functional status health issues are not documented Disease [facility] Work Phone: Mental Status Date Assessment Result Facility 03-02-2023 Cognitive function Touch/Shaking [facility] Work Phone: 03-02-2023 Cognitive function Patient Orien tation Person;Place;Time [facility] Work Phone: NEGATED: Highlighted row Cognitive function [Interpretation] Cognitive status health issues are not documented Disease [facility] Work Phone: Clinical Notes 01-20-2022 to 11-15-2024 Note Date & Type Note Facility 11-15-2024 Progress note [facility] 11-15-2024 Progress note Note Date/Time November 15, 2024 2:51pm [facility] [address], [address] [place] [address] OFFICE VISIT Date of Service: 11/15/24 MR#: [id number] Acct: [id number] Name: CLAUDIA FARFAN MARLENE Rep #: [id number] : 1995 Provider: Dr. 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 occupational exposures/hazards: No pets and [...] physical activity do you participate in: none ronn/confucianism: None seatbelt use: always do you feel [...] Heart murmur R01.1 CPT Codes Non-Stress Test (18749) Assessment and Plan Assessment and Plan (1) [...] high risk , unspecified, third trimester Comment: [id number], THOMAS 11/29/24, boy [employer] Singh, BF [...] Cosign Signature: Date (if applicable) CC: ~ [place] [facility] Work Phone: 1(556) 273-296006-26-2025 Progress [facility] [address], [address] [place] [address] OFFICE VISIT Date of Service: 11/09/24 MR#: [id number] Acct: [id number] Name: CLAUDIA FARFAN MARLENE Rep #: [id number] : 1995 Provider: Dr. 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 Date Name GA/Weeks Outcome Route Bth Weight Infant Gen Labor Lgth Anesthesia [facility] FOB 08/16/22 Singh 39 live - full term 7# 3oz Male [facility] KW/SM Delivery Date: 08/16/22 Last Updated by: [...] Heart murmur R01.1 CPT Codes Non-Stress Test (21974) Assessment and Plan Assessment and Plan (1) [...] high risk , unspecified, third trimester Comment: [id number], THOMAS 11/29/24, boy [employer] Singh, BF [...] Pérezign Signature: Date (if applicable) CC: ~ [facility]06-26-2025 Progress note Author Penelope Yang [facility] Note Date/Time November 09, 2024 3:26 pm [facility] [address] [place] [id number] OFFICE VISIT Date of Service: 11/09/24 MR#: [id number] Acct: [id number] Name: CLAUDIA FARFAN Rep #: [id number] : 1995 Provider: Dr. 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 occupational exposures/hazards: No pets and [...] physical activity do you participate in: none ronn/confucianism: None seatbelt use: always do you feel [...] live - full term 7# 3oz Male [facility] KW/SM Delivery Date: 08/16/22 Last Updated by: [...] Heart murmur R01.1 CPT Codes Non-Stress Test (39785) Assessment and Plan Assessment and Plan (1) [...] high risk , unspecified, third trimester Comment: [id number], THOMAS 11/29/24, boy [employer] Singh BF [...] Cosigner Signature: Date (if applicable) CC: ~ [place] [facility] Work Phone: 1(120) 150-260406-23-2025 Radiology Diagnostic study note [facility] [address] [place], [place] [address] OB Limited With Biometrics MR#: [id number] Acct: [id number] Name: CLAUDIA FARFAN Rep #: [id number] : 1995 F 28 From: To Lowry MD PCP: Care Physician,No Primary Status: REG CLI Study:OB Limited With Biometrics Date of Exam : 11/06/24 Exam# [id number] Ordering Dr: Evelyn Stern DO PROCEDURE: OB [...] within lower limits of normal. Reading Location: [id number] CC: Dr. Evelyn Villa, DO; No Primary Care Physician ~ Information Assurance Analyst: Signed [facility]06-06-2025 Progress [facility] [address], [address] [place] [address] OFFICE VISIT Date of Service: 10/20/24 MR#: [id number] Acct: [id number] Name: CLAUDIA FARFAN MARLENE Rep #: [id number] : 1995 Provider: DEEPAK Abreu Age/Sex: 28/F Location: [facility] Status: Signed Intake Vital Signs 08/21/24 08:34 10/02/24 09:03 10/20/24 08:58 10/20/24 09:02 Height 5 ft 3 in 5 ft 3 in 5 ft 3 in 5 ft 3 in Weight: 231 lb BMI 40.9 BP 119/78 Intake Visit Reasons: 34wk ob Chief Complaint: 34 Week OB Pocket Marker Required: No Is patient in pain?: No [...] 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 occupational exposures/hazards: No pets and [...] physical activity do you participate in: none ronn/confucianism: None seatbelt use: always do you feel [...] Induction Counseling, Postterm Counseling, Feeding No , [place] Education, Family Medical Leave or Disability Forms, [...] high risk , unspecified, third trimester Comment: [id number], HTOMAS 11/29/24, boy [employer] Singh, BF Pernell [...] Cosigner Signature: Date (if applicable) CC: ~ [facility]05-22-2025 Radiology Diagnostic study note [facility] [address] [place], [place] [address] OB Limited With Biometrics MR#: [id number] Acct: [id number] Name: CLAUDIA FARFAN Rep #: [id number] : 1995 F 28 From: Roberto Mansfield MD PCP: Care Physician,No Primary Status: REG CLI Study:OB Limited With Biometrics Date of Exam : 10/04/24 Exam# [id number] Ordering Dr: Evelyn Stern DO PROCEDURE: OB [...] (7.00-86.00, 32 weeks 0 day) Reading Location: [id number] CC: Dr. Evelyn Villa DO; No Primary Care Physician ~ Information Assurance Analyst: Signed [facility]05-19-2025 Progress [facility] [address], [address] [place] [address] OFFICE VISIT Date of Service: 10/02/24 MR#: [id number] Acct: [id number] Name: CLAUDIA FARFAN Rep #: [id number] : 1995 Provider: Dr. 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: No pets and [...] physical activity do you participate in: none ronn/confucianism: None seatbelt use: always do you feel [...] live - full term 7# 3oz Male [facility] KW/SM Delivery Date: 08/16/22 Last Updated by: [...] high risk , unspecified, third trimester Comment: [id number], THOMAS 11/29/24, boy [employer] Singh, BF [...] Cosigneric Signature: Date (if applicable) CC: ~ [facility]03-14-2025 Evaluation note* Diagnosis Onset Date Resolution Status [...] of high-risk acute November 01, 2024 10:23am [facility] Work Phone: 1(703) 114-611203-14-2025 Evaluation note* Diagnosis Onset Date Resolution Status [...] of high-risk acute November 09, 2024 2:25pm [facility] Work Phone: 1(550) 814-545003-14-2025 Evaluation note* Diagnosis Onset Date Resolution Status [...] high-risk acute November 15, 2024 2 :09pm [facility] Work Phone: 1(955) 392-141403-14-2025 Evaluation note* Diagnosis Onset Date Resolution Status [...] high-risk acute November 20, 2024 1 :55pm [place] [facility] Work Phone: 1(370) 421-662602-10-2025 Evaluation note* Diagnosis Onset Date Resolution Status [...] high-risk acute October 02, 2024 8 :55am [facility] Work Phone: 1(543) 328-978702-10-2025 Evaluation note* Diagnosis Onset Date Resolution Status [...] high-risk acute October 20, 2024 8 :54am [facility] Work Phone: 1(974) 364-493202-01-2025 Instructions* Patient Instructions* Julia Browne APRN.FOURDRINIER MACHINE OPERATOR - 06/17/2024 12:03 PM EST Images from [...] while you are sick so you don't pickling grader a different virus, or infect others. 8. Avoid exposure to cigarettes or fumes. 9. Avoid irritants such as potpourri, dust, perfumes, scented candles and scented sprays 10. Air conditioning is an effective allergen and irritant avoidance strategy in the spring, summerand fall. 11. Honey is an effective cough suppressant. Try one tsp two to three times per day. The below information is from prescribersletter.Onlineprinters: Antibiotics Will rarely help an upper respiratory [...] outside corner of the right eye. 5. [place] one spray only. Take a sniff as [...] available over the counter (NasalCrom Allergy Nasal [place]). ?r?moly? sodium administered intranasally and/or by inhalation [...] evidence for or against the effectiveness of lbng-sqe-aetewua medications (including g??if?n??i?, mucolytics, and combination medications) [...] for 24 hours only documented in [facility]-2025 NoteHNO ID: [id number] Author: JULIA BROWNE APRN.FOURDRINIER MACHINE OPERATOR Service: ? Author Type: Nurse Practitioner Type: [...] Visit Note Patient seen on Virtual Platform, [employer] Location of patient: [place] History of Present Illness Claudia Farfan is [...] Encouraged good hydration, handwas (more content not included)...[facility]02-01-2025 History of Present illness Narrative* Julia Browne APRN.[facility] - 06/17/2024 11:51 AM EST Informed [...] Visit Note Patient seen on Virtual Platform, [employer] Location of patient: [place] History of Present Illness Claudia Farfan is [...] UP WITH YOUR PCP Julia Browne, MSN, OIL MIXER-FOURDRINIER MACHINE OPERATOR, CUNP [facility] Emergency Medicine [facility] documented in this encounterGreene [facility] Hospital01-08-2025 Evaluation note* Diagnosis Onset Date Resolution [...] 2024 8:28am [facility] Work Phone: [phone]) 194-284911-01-2024 History of Present illness Narrative* Hector Winchester, PAPA.FOURDRINIER MACHINE OPERATOR - 03/17/2024 9:05 AM EDT Images from [...] SCALP SOLUTION FU 3 months Hector Winchester APRN.FOURDRINIER MACHINE OPERATOR documented in this encounterGreene [facility] Hospital11-01-2024 NoteHNO ID: [id number] Author: HECTOR WINCHESTER APRN.ALLIE Service: ? Author [...] depression, (10-14) moderate depression, (more content not included)...[facility]10-02-2024 Telephone encounter Note* Telephone Encounter - Mitul Donohue MA - 02/16/2024 2:44 PM EDT Patient notified. Mitul Donohue MA [facility]10-02-2024 Telephone encounter Note* Telephone Encounter - Mitul Donohue MA - 02/16/2024 2:44 PM EDT ----- Message from Hector Winchester APRN.CNP sent at 02/16/2024 2:41 PM EDT ----- Please notify patient results are normal. Thank you. Hector Winchester APRN.FOURDRINIER MACHINE OPERATOR [facility]10-02-2024 Miscellaneous Notes* Telephone Encounter - Mitul Donohue MA - 02/16/2024 2:44 PM EDT Patient notified. Mitul Donohue MA * Telephone Encounter - Mitul Donohue MA - 02/16/2024 2:44 PM EDT ----- Message from Hector Winchester APRN.CNP sent at 02/16/2024 2:41 PM EDT ----- Please notify patient results are normal. Thank you. Hector Winchester APRN.FOURDRINIER MACHINE OPERATOR documented in this encounterGreene [facility] Hospital08-20-2024 NoteHNO ID: [id number] Author: HECTOR WINCHESTER APRN.CNP Service: ? Author [...] not frequent Last Pap - January 2022 MEDICAL LAB ASSISTANT - [facility] Hx PCOS = diagnosed in [...] feels like it gives (more content not included)...[facility]08-20-2024 History of Present illness Narrative* Hector Winchester APRN.FOURDRINIER MACHINE OPERATOR - 01/04/2024 11:26 AM EDT Subjective Claudia [...] not frequent Last Pap - January 2022 MEDICAL LAB ASSISTANT - [facility] Hx PCOS = diagnosed in [...] - CONSULT TO PHYSICAL THERAPY Hector Winchester APRN.FOURDRINIER MACHINE OPERATOR documented in this encounterGreene [facility] Hospital06-07-2024 History of Present illness Narrative* Caitlin Mehta APRN-ALLIE - 10/22/2023 5:00 PM EDT [facility] Caitlin Mehta, OIL MIXER-FOURDRINIER MACHINE OPERATOR Visit Note - 10/22/2023 5:25 PM This [...] PRESENT ILLNESS: The history was obtained from patientRnada Taylor is a 27 y.o. female, who [...] OJ with elderberry, withoutmuch relief; no other nxgi-eii-kdnjsim medications or home remedies for symptom management. [...] Musculoskeletal: Grossly normal; appropriate for age. Integumentary: Omro, warm, dry, and intact. No rashes or [...] Mucinex, vaporizer, voice rest, and Saline Nasal [place] may be helpful. Reviewed red flags to [...] and answered. 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 Call [facility] ([phone]) or report to the closest Emergency Room. Call 911 if necessary. 03/12/23 1736 <Electronically signed by Jaylan Pedroza DO> Cosigner Signature (if applicable): CC: No Primary Care Physician ~ Signed [facility] Work Phone: [phone]) [phone] Discharge summary Author Christal Mccall [facility] March 02, 2023 12:25pm Note Date/Time March 02, 2023 1 2:25pm [facility] Medical Records Department [address] [place] [address] Instructions for Home/Discharge Instructions 03/02/23 1225 MR#: [id number] Acct: [id number] Name: CLAUDIA FARFAN MARLENE Rep #:[id number] : 1995 27 From: Christal Mccall MD PCP: Care Physician,No Primary Status :[facility] Discharge Instructions Diet Discharge Diet: Light diet [...] after 5 PM and on the call [phone] with any concerns. Test Results: Test results [...] ~ Signed [facility] Work Phone: [phone] 574-594610-17-2023 History and physical note Author Christal Mccall [facility] March 02, 2023 10:33am Note Date/Time March 02, 2023 1 0:33am [facility] Medical Records Department [address] [place] [address] History & Physical Exam 03/02/23 1032 MR#: [id number] Acct: [id number] Name: CLAUDIA FARFAN Rep #:[id number] : 1995 27 From: Christal Mccall MD PCP: Care Physician,No Primary Status :[facility] Location: [place] [address] History and Physical Date of Admission: 03/02/23 Date of Service: 02/11/23 MR#: [id number] Acct: [id number] Name: CLAUDIA FARFAN Rep #: [id number] : 1995 Provider: Dr. 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 Christal Mccall M.D. Pager: [phone] [facility] [address] [place] [address], [facility], [address] [place] [address] Office: [phone] Coding Level of Care Code Off vis,est,level [...] ~* Signed [facility] Work Phone: 1(228) 937-289010-17-2023 Procedure [facility] 08-18-2022 Progress note Author Gui Sloan [facility] August 18, 2022 7:54am Note Date/Time August 18, 2022 7:54 am [facility] Medical Records Department [address] [place] [address] Progress Note - OBGYN 08/18/22751 MR#: [id number] Acct: [id number] Name: CLAUDIA FARFAN Rep #:[id number] : 1995 From: Gui Sloan NP WAREHOUSE ORDER PULLER-C PCP: Care Physician,No Primary Status :ADM IN Location: [place] 554020-1 Subjective Subjective Patient doing well without complaints. [...] 0754 <Electronically signed by Gui Sloan NP WAREHOUSE ORDER PULLER-C> Cosigner Signature (if applicable): CC: ~ Signed [facility] Work Phone: [phone]) 784-518904-03-2023 Progress note Author Rina Mead [facility] August 17, 2022 8:34am Note Date/Time August 17, 2022 8:34 am [facility] Medical Records Department [address] [place] [address] Progress Note - OBGYN 08/17/22 0833 MR#: [id number] Acct: [id number] Name: CLAUDIA FARFAN Rep #:[id number] : 1995 From: Rina Mead CNArpan PCP: Care Physician,No Primary Status :ADM IN Location: [place] 554029-1 Subjective Subjective Patient doing well without complaints. [...] % (Auto) 70.3 H, Lymph % (Auto) 21.7,Snyder % (Auto) 6.8, Eos % (Auto) 0.5, [...] positive 4. rubella immune 5. infant in [place] care nursery, emotional support provided. 08/17/22 0834 <Electronically signed by Rina Mead CNM> Cosigner Signature (if applicable): CC: ~ Signed [facility] Work Phone: [phone]) 285-995404-03-[address] Yang [facility] August 16, 2022 10:35pm Note Date/Time August 16, 2022 10:3 5pm [facility] Medical Records Department [address] [place] [address] Instructions for Home/Discharge Instructions 08/16/225 MR#: [id number] Acct: [id number] Name: CLAUDIA FARFAN MARLENE Rep #:[id number] [...] Primary Discharge Orders/Prescriptions Prescriptions: No Action PNV no.960-WO-io9-tbh-mto-pjfs 400 mcg-35 mg- 25 mg-5 mg tablet,chewable 1 tab PO DAILY Referrals / Follow Up: Care Physician,No Primary [Primary Care Provider] - Disposition Disposition (needs filled in before D/C Order can be placed): Home, Self Care 08/16/222234<Electronically signed by Penelope Yang MD>Penelope Yang MD CC: No Primary Care Physician ~ Signed [facility] Work Phone: 1(455) 867-150204-02-2023 Procedure [facility] 08-16-2022 Progress note Author Cristy Abreu [facility] August 16, 2022 7:11pm Note Date/Time August 16, 2022 7:02 pm [facility] Medical Records Department [address] [place] [address] Progress Note 08/16/22 1856 MR#: [id number] Acct: [id number] Name: CLAUDIA FARFAN MARLENE Rep #:[id number] : 1995 26 From: Cristy Abreu CNM PCP: Care Physician,No Primary Status :ADM IN Location: QH641-3 Progress Note Patient comfortable with epidural current tracing: FHT: 135 Moderate variability reactive, occasional variable, category II tracing, overall reassuring [place]: Contractions q2-3 minutes, palpating moderate to strong. [...] ~ Signed [facility] Work Phone: 1(770) [phone] Progress note Author Cristy Abreu [facility] August 16, 2022 2:20pm Note Date/Time August 16, 2022 2:20 pm [facility] Medical Records Department [address] [place] [address] Progress Note 08/16/22 1412 MR#: [id number] Acct: [id number] Name: CLAUDIA FARFAN Rep #:[id number] : 1995 26 From: Cristy Abreu CNM PCP: Care Physician,No Primary Status :ADM IN Location: [place] 554029-1 Progress Note Patient coping well with contractions. current tracing: FHT: 130 Moderate variability reactive no decelerations category I tracing [place]: Contractions every 1-4 minutes palpating moderate. Patient [...] ~ Signed [facility] Work Phone: [phone]) [phone] History and physical note Author Cristy Abreu [facility] [place] 2nd, 2023 8:41am Note Date/Time August 16, 2022 8:41 am [facility] Medical Records Department [address] [place] [address] H&P Exam - BOILER PLANT OPERATOR 08/16/22823 MR#: [id number] Acct: [id number] Name: CLAUDIA FARFAN Rep #:[id number] : 1995 26 From: Cristy Abreu CNM PCP: Care Physician,No Primary Status :ADM IN Location: HW912-3 HPI - General General Date of Admission: [...] 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 High fraction on NIPT-declines invasive testing. [facility] 04/0604/13/22 -?-?-?-?-?-?-?-?-?-?-?-?- 21w 3d 218 lb 138/76 [...] NST , no concerns. has appt with [facility] for growth scan end july. good fm, [...] review problem list I have reviewed the [facility] and made any clinically relevant updates. (2) [...] Physician~ Signed [facility] Work Phone: [phone]) 391-446303-14-2023 Hospital Discharge instructions Additional Instructions Take antibiotic as ordered. May take Pepcid 20mg orally daily and if needed may take twice daily Referral for ob tech made for outpatient, Keep your next Ob appt as scheduled, this week.[facility] Work Phone: [phone] History and physical note Author Rina Mead [facility] July 24, 2022 5:55pm Note Date/Time July 24, 2022 5:3 7pm [facility] Medical Records Department [address] [place] [address] H&P Exam - BOILER PLANT OPERATOR 07/24/22 1737 MR#: [id number] Acct: [id number] Name: CLAUDIA FARFAN MARLENE Rep #:[id number] : 1995 26 From: Rina Mead CNM PCP: Care Physician,No Primary Status :REG CLI Location: TM225-7 HPI - General HPI Narrative CLAUDIA FARFAN, [...] 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 07/24/22 4079 <Electronically signed by Rina Mead CNM> Cosigner Signature (if applicable): CC: DEEPAK Mead; No Primary Care Physician~ Signed [facility] Work Phone: [phone]) [phone] NotePap Smear Specimen AdequacySeptember 2021 4:49pmComment.Satisfactory for evaluation. Endocervical and/or squamous metaplasticcells (endocervical component)are present.[facility]ED A#[id number] Work Phone: Comment on above:Satisfactory for evaluation. Endocervical and/or squamous metaplasticcells (endocervical component)are present.01-20-2022 NotePap Smear QC ReviewSeptember 2021 4:49pmComment. Marnie Cody, Supervisory Academic Advising Director (ASCP)[facility] INTER[facility]ACED A#[id number] [facility] Work Phone: Comment on above:Marnie Cody, Supervisory Academic Advising Director (ASCP)Evaluation note* Diagnosis Onset Date Resolution Status acute Seasonal allergies acute Supervision of normal first acute [facility] Work Phone: Evaluation note* Diagnosis Onset Date [...] first acute [facility] Work Phone: Evaluation note* Diagnosis Onset Date [...] first acute [facility] Work Phone: Evaluation note* Diagnosis Onset Date [...] first acute [facility] Work Phone: Evaluation note* Diagnosis Onset Date [...] first acute [facility] Work Phone: Evaluation note* Diagnosis Onset Date [...] acute Supervision of normal first acute [facility] Work Phone: Evaluation note* Diagnosis Onset Date [...] first resolved [facility] Work Phone: Evaluation note* Diagnosis Onset Date Resolution Status Cholelithiasis acute Gallbladder sludge acute [facility] Work Phone: Evaluation note* Diagnosis Acute laryngitis- Primary Acute sinusitis, recurrence not specified, unspecified location documented in this encounter [facility] Work Phone: Evaluation note* Diagnosis MADDIE (generalized anxiety disorder) Generalized anxiety disorder [facility] Diagnosis MADDIE (generalized anxiety disorder)- Primary Generalized anxiety disorder Urinary frequency Incomplete bladder emptying Acute pain of left knee documented [facility] this encounter [facility]* Diagnosis MADDIE (generalized anxiety disorder)- Primary Generalized anxiety disorder Tremor Abnormal involuntary movements Screening for lipid disorders Psoriasis of scalp Other psoriasis documented in this encounter [facility] note* Diagnosis Acute cough- Primary Acute URI Acute upper respiratory infections of unspecified site Sinus drainage Other diseases of nasal cavity and sinuses PND (post-nasal drip) Postnasal drip 16 weeks gestation of state, incidental [facility] Additional Instructions Thank you [...] evaluation and management.[facility] Work Phone: Progress note Author Evelyn Lema [facility] Note Date/Time October 02, 2024 9:28a m [facility] [address] [place] [address], [address] [place] [address] OFFICE VISIT Date of Service: 10/02/24 MR#: [id number] Acct: [id number] Name: CLAUDIA FARFAN Rep #: [id number] : 1995 Provider: Dr. 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: No pets and [...] physical activity do you participate in: none ronn/confucianism: None seatbelt use: always do you feel [...] live - full term 7# 3oz Male [facility] KW/SM Delivery Date: 08/16/22 Last Updated by: [...] Counseling, Postterm Counseling, Infant Feeding No , [place] Education, Family Medical Leave or Disability Forms, [...] high risk , unspecified, third trimester Comment: [id number], [place] 11/29/24, boy [employer] Singh, BF [...] Cosigner Signature: Date (if applicable) CC: ~ [facility] Work Phone: Progress note Author Cirsty Abreu [facility] Note Date/Time October 20, 2024 9:16a m [facility] [address] [place] [address], [address] [place] [address] OFFICE VISIT Date of Service: 10/20/24 MR#: [id number] Acct: [id number] Name: CLAUDIA FARFAN Rep #: [id number] : 1995 Provider: DEEPAK Abreu Age/Sex: 28/F Location: [facility] Status: Signed Intake Vital Signs 08/21/24 08:34 10/02/24 09:03 10/20/24 08:58 10/20/24 09:02 Height 5 ft 3 in 5 ft 3 in 5 ft 3 in 5 ft 3 in Weight: 231 lb BMI 40.9 BP 119/78 Intake Visit Reasons: 34wk ob Chief Complaint: 34 Week OB Pocket Marker Required: No Is patient in pain?: No [...] 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 [place] appropriate handout given. 10/20/24 1112 <Electronically signed by Cristy bradford CNM> Date _ Cristy Abreu CNM Cosigner Signature: Date (if applicable) CC: ~ [facility] Work Phone: Reason for referral (narrative)No reason for referral information availableWCleveland Clinic Lutheran Hospital Work Phone: Summary Purpose Family History [...] No August 16, 2022 8:14am Power of Lead Pharmacy Technician No August 16 8:14am Advance Directive Response Recorded Date/ Time Living Will No February 23 11:05am Power of Lead Pharmacy Technician No February 23, 2023 11:05am Advance Directive Response Recorded Date/ Time Living Will No March 12 3:13pm Power of Lead Pharmacy Technician No March 12, 2023 3:13pm Chief [...] EVALUATION HIGH COMPLEX 45 MINS Hector Winchester, OIL MIXER.FOURDRINIER MACHINE OPERATOR [address] [place] [address] [facility] [address] [address] Referral ID Status Reason Start Date Expiration Date Visits Requested Visits Authorized [id number] Pending Review Auto-Generat ed Referral 01/04/2024 01/03/2025 1 1 Specialty Diagnoses / Procedures Referred By Contac t Referred To Contact XR IMAGING Diagnoses Acute pain of left knee Procedures XR KNEE INJURY 4V AP/LAT/OBLS LEFT RADIOLOGIC EXAM KNEE COMPLETE 4/MORE VIEWS Hector Winchester, OIL MIXER.FOURDRINIER MACHINE OPERATOR [address] [place] [address] [place] [address] Referral ID Status Reason Start Date Expiration Date Visits Requested Visits Authorized [id number] New Request Auto-Generat ed Referral 01/04/2024 02/02/2025 1 1 Specialty Diagnoses / Procedures Referred By Contac t Referred To Contact Urology Diagnoses Urinary frequency Incomplete bladder emptying Procedures CONSULT TO UROLOGY OFFICE/OUTPATIENT NEW HIGH MDM 60 MINUTES Hector Winchester OIL MIXER.FOURDRINIER MACHINE OPERATOR [address] [place] [address] Referral ID Status Reason Start Date Expiration Date Visits Requested Visits Authorized [id number] Authorized PCP Requested Referral 01/04/2024 01/03/2025 1 1 Additional Source Comments INFORMATION SOURCE (unrecogn ized section and content) DATE CREATED AUTHOR 03/19/2018 [facility] DATE CREATED AUTHOR AUTHOR'S ORGANIZ ATION 09/11/[address] [facility] DATE CREATED AUTHOR AUTHOR'S ORGANIZ ATION 07/07/2020 [employer] DATE CREATED AUTHOR AUTHOR'S ORGANIZ ATION 04/01/2022 [facility] DATE CREATED AUTHOR AUTHOR'S ORGANIZ ATION 10/25/[address] [facility] DATE CREATED AUTHOR AUTHOR'S ORGANIZ ATION 10/24/2023 [facility] DATE CREATED AUTHOR AUTHOR'S ORGANIZ ATION 03/27/2024 [facility] DATE CREATED AUTHOR AUTHOR'S ORGANIZ ATION 06/19/2024 [facility] DATE CREATED AUTHOR AUTHOR'S ORGANIZ ATION 07/17/2024 [facility] DATE CREATED AUTHOR AUTHOR'S ORGANIZ ATION 11/17/2024 [facility] Goals (unrecognized section and content) Goals may [...] Provider, Refer ring Provider Active Gui Sloan WAREHOUSE ORDER PULLER, WAREHOUSE ORDER PULLER-C Attending Provider Active Team Status: Inactive Member Role Status Dates No Primary Care Physician Primary Care Provider, Refer ring Provider Active Rina Mead CNM Attending Provider Active Team Status: Inactive Member Role Status Dates No Primary Care Physician Primary Care Provider Active Gui Sloan WAREHOUSE ORDER PULLER, WAREHOUSE ORDER PULLER-C Attending Provider, Referring Provider Active Team Status: [...] Yang MD Other Provider Active Gui Sloan WAREHOUSE ORDER PULLER, WAREHOUSE ORDER PULLER-C Attending Provider Active Team Status: Inactive Member [...] Dr. Jaylan Pedroza DO Emergency Provider Active Reverse Engineer Relationship Specialty Start Date End Date Ellen Veras MD [address] [facility] [address] [address] PCP - General 12/08/19 Reverse Engineer Relationship Specialty Start Date End Date Hector Winchester, OIL MIXER.FOURDRINIER MACHINE OPERATOR [address] [place] [id number] PCP - General Family Medicine 01/04/24 Reverse Engineer Relationship Specialty Start Date End Date Hector Winchester, OIL MIXER.FOURDRINIER MACHINE OPERATOR [address] [place] [address] PCP - General Family Medicine 01/04/24 Reverse Engineer Relationship Specialty Start Date End Date Hector Winchester, OIL MIXER.FOURDRINIER MACHINE OPERATOR [address] [place] [address] PCP - General Family Medicine 01/04/24 Reverse Engineer Relationship Specialty Start Date End Date Hector Winchester, OIL MIXER.FOURDRINIER MACHINE OPERATOR [address] [place], [place] [id number] PCP - General Family Medicine 01/04/24 Reverse Engineer Relationship Specialty Start Date End Date Hector Winchester, OIL MIXER.FOURDRINIER MACHINE OPERATOR [address] [place], [place] [id number] PCP - General Family Medicine 01/04/24 Team Status: Inactive Member Role Status Dates No Primary Care Physician Primary Care Provider Active Start: May 24, 2024 End: May 24, 2024 No Primary Care Physician Referring Provider Active Start: May 24, 2024 End: May 24, 2024 Gui Sloan NP, WAREHOUSE ORDER PULLER-C Attending Provider Active Start: May 24, 2024 [...] End: September 20, 2024 Gui Sloan NP, WAREHOUSE ORDER PULLER-C Attending Provider Active Start: September 20, 2024 [...] End: September 20, 2024 Gui Sloan NP, WAREHOUSE ORDER PULLER-C Attending Provider Active Start: September 20, 2024 [...] 06, 2024 End: November 06, 2024 Dr. Evleyn Villa DO Attending Provider Activ e Start: [...] or prosecute any alcohol or drug abuse patient.[facility] the event this information is protected by the Federal Confidentiality of Alcohol and Drug Abuse Patient Records regulations: The Federal rules restrict any use of the information to criminally investigate or prosecute any alcohol or drug abuse patient.[facility] the event this information is protected by the Federal Confidentiality of Alcohol and Drug Abuse Patient Records regulations: The Federal rules restrict any use of the information to criminally investigate or prosecute any alcohol or drug abuse patient.[facility] the event this information is protected by the Federal Confidentiality of Alcohol and Drug Abuse Patient Records regulations: The Federal rules restrict any use of the information to criminally investigate or prosecute any alcohol or drug abuse patient.[facility] the event this information is protected by the Federal Confidentiality of Alcohol and Drug Abuse Patient Records regulations: The Federal rules restrict any use of the information to criminally investigate or prosecute any alcohol or drug abuse patient.[facility] FOR RECORDS PERTAINING TO PATIENTS WHO [...] BE BASED ON THE PRIMARY CLINICAL RECORDS. [facility]. provides no warranty or guarantee of the accuracy or completeness of information in this document.
[2024-11-23 23:10] LABS: Hematocrit 39.5 % (37-47); Hemoglobin 13.9 g/dL (12.0-15.0); Immature Granulocytes Count 0.050 X10^3/uL (0.0-0.0); Mean Corp Hgb Conc 35.2 g/dL (32-36); Mean Corpuscular Volume 85.9 fL (81-99); Mean Platelet Vol. 12.6 fl (6.2-12.0); NRBC Flagged by Analyzer 0 % (0-5); Platelet Count 166 K/mm3 (150-450); RBC Distribution Width CV 12.9 % (11.6-14.6); RBC Distribution Width SD 39.7 fl (35.1-43.9); Red Blood Count 4.60 M/mm3 (4.2-5.4); White Blood Count 12.6 K/mm3 (4.4-11.0)
[2024-11-23 23:44] LABS: Syphilis Antibodies Nonreactive (Nonreactive)
[2024-11-24] VITALS (66 sets, daily range): BP systolic 92–163; BP diastolic 51–94; PULSE 62–107; RESP 16; TEMP 36.3–36.7; O2SAT 86–100; BMI 20250711.0; BMI 225.0
[2024-11-24] MEDS: Lactated Ringers 1,000 ML 50 ML IV (03:05)
[2024-11-24] MEDS: Lactated Ringers 1,000 ML 999 ML IV (03:05)
[2024-11-24] MEDS: fentaNYL-bupivacaine (epidural) 100 ML BAG EPIDURAL (04:28)
[2024-11-24] MEDS: Oxytocin 15 Units/NS 250ml 15 UNITS/250 ML IV.SOLN 334 UNITS IV (06:35)
--- NOTE | 2024-11-24 06:53 | HP.PCM.OB_ITS ---
HPI - General General Date of Admission: 11/23/24 HPI Narrative JOJO PELAEZ, is a 29 y/o @ 39 weeks 2 days who presents to L&D in early labor and SROM. She is requesting an epidural when she gets more painful Maternal Data Information THOMAS Calculator Estimated Delivery Date Method Current WG Current Estimate 11/29/24 LMP (Certain) 39w 2d Other Estimates 11/29/24 Ultrasound #1 39w 2d PFSH PFSH Medical History Postoperative abdominal pain Wears contact lenses Wears glasses Non-smoker Cholelithiasis Gallbladder sludge Gallbladder attack Vaginal delivery Home Medications ?Medication ?Instructions ?Recorded ?Last Taken ?Type folic acid 800 mcg tablet 0.8 mg PO DAILY 10/05/2202/08 History ascorbic acid (vitamin C) 500 mg 500 mg PO DAILY 02/2311/22/24 History tablet (C-500) magnesium 200 mg tablet 200 mg PO DAILY 02/23/2302/08 History omega-3 fatty acids 500 mg PO DAILY 02/23/2302/08 History PNV 153-FA 400 mcg-om3 35 mg-dha 1 tab PO DAILY pregna 04/18/24 11/22/24 History 25 mg-epa 5 mg-fish oil chew tablet cholecalciferol (vitamin D3) 25 4,000 unit PO DAILY 11/22/24 History mcg (1,000 unit) capsule Allergy/AdvReac Type Severity Reaction Status Date / Time No Known Allergies Allergy Verified 11/23/24 22:15 Family History Mother Asthma Grandfather Heart disease Maternal Hypertension Maternal CVA (cerebral vascular accident) Maternal Thyroid disorder Maternal Surgical History S/P cholecystectomy History of surgery History of surgery History of surgery Social History adopted: No household members: significant other, family and children housing: house number of children: 1 current occupational status: employed 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 current occupational exposures/hazards: No pets and animals: Yes pets and animals: dog(s) history of recent travel: No sexually active: Yes Smoking Status: Never smoker second hand exposure: No alcohol intake: current details: rarely socially- Not while substance use type: does not use well-balanced diet: daily or most days caffeine: Yes (Energy drink 200mg) Type: other Number of servings: 1 eating out: 1-3 times/week during the past year weight has: decreased > 10 lbs what type of physical activity do you participate in: none ronn/muslim: None seatbelt use: always do you feel safe at home: Yes additional social history: Boyfriend Pernell- Pest Control History 2 Elective abortions Hx Para 1 Spontaneous abortions Hx # Term Pregnancies 1 Ectopic pregnancies Hx # Pregnancies Multiple births # of living children 1 Past Pregnancies Del. Date Name GA/Weeks Outcome Route Bth Weight Gen Labor Lgth Anesthesia Del Locatn Provider FOB 08/16/22 Singh 39 live - full term 7# 3oz Male [facility] KW/SM Delivery Date: 08/16/22 Last Updated by: Jovana QUIROZ abnl. NIPT Visit Details Expected Delivery Route/Plan Labor Preferences- CB/BF classes: no labor support person: Pernell labor intervention preferences: [] pain management options preferred: epidural cut cord/dad catch: cord : yes PP control planned: discussed discussed possible routes of delivery and associated risks: [] special requests: [] Plans Covid status: [] Flu vaccine: [] Tdap vaccine: declines Rhogam: NA LARC form signed: yes Problem list reviewed and updated with the most current plan of care details and appropriate orders placed. Relevant counseling for the gestational age provided. Continue routine care and follow up unless otherwise noted in visit notes/problem list details OB Flowsheet Initial Weight: 217 lb Date -?-?-?-?-?-?-?-?-?-?-?-?- EGA Weight BP Urine Prot -?-?-?-?-?-?-?-?-?-?-?-?- Glucose FHR FuHt Pres Dilation -?-?-?-?-?-?-?-?-?-?-?-?- Effaced St Visit Note 04/24/24 -?-?-?-?-?-?-?-?-?-?-?-?- 8w 5d 217 lb (+0 oz) 119/74 -?-?-?-?-?-?-?-?-?-?-?-?- 195 -?-?-?-?-?-?-?-?-?-?-?-?- JV- CRL matches LMP. Declines nipt. afia sent for morning sickness. RTo in 4 weeks. 05/24/24 -?-?-?-?-?-?-?-?-?-?-?-?- 13w 0d 216 lb (-16 oz) 116/72 Negative -?-?-?-?-?-?-?-?-?-?-?-?- Negative 171 -?-?-?-?-?-?-?-?-?-?-?-?- MH-No VB. Nausea controlled with zofran. Br US confirm FHT 06/26/24 -?-?-?-?-?-?-?-?-?-?-?-?- 17w 5d 215 lb 2 oz (-1 lb 14 oz) 119/76 Negative -?-?-?-?-?-?-?-?-?-?--?-?- Negative 165 -?-?-?-?-?-?-?-?-?-?-?-?- KW- no vb/crampi ng. possible flutters. nausea at night but doing well. anatomy US scheduled. 07/28/24 -?-?-?-?-?-?-?-?-?-?-?-?- 22w 2d 222 lb (+5 lb) 110/72 Negative -?-?-?-?-?-?-?-?-?-?-?-?- Negative 155 22 -?-?-?-?-?-?-?-?-?-?--?-?- LC- no vb/crampi ng. feeling movement. has obtained follow up scans. 08/21/24 -?-?-?-?-?-?-?-?-?-?-?-?- 25w 5d 223 lb 8 oz (+6 lb 8 oz) 122/75 Negative -?-?-?-?-?-?-?-?-?-?-?-?- Negative 145 25 -?-?-?-?-?-?-?-?-?-?-?-?- SM- no vb lof go od fm no regular ctx 09/20/24 -?-?-?-?-?-?-?-?-?-?-?-?- 30w 0d 225 lb (+8 lb) 108/66 Negative -?-?-?-?-?-?-?-?-?-?-?-?- Negative 143 30 -?-?-?-?-?-?-?-?-?-?-?-?- MH-No VB, LOF. S ome irreg BH. Good FM. Some increased stress-FOB w new seizure activity. She declines med. Enc counseling. 10/02/24 -?-?-?-?-?-?-?-?-?-?-?-?- 31w 5d 230 lb (+13 lb) 124/76 Trace -?-?-?-?-?-?-?-?-?-?-?-?- Negative 133 34 0 -?-?-?-?-?-?-?-?-?-?-?-?- 50 JV- comp laining of cramping more than last . no lof, vaginal bleeding, or dec fm. patient examined and reassured. JV- complaining of cramping more than last . no lof, vaginal bleeding, or dec fm. patient examined and reassured. wants to get back on her fluoxetine. measuring LGA. 10/20/24 -?-?-?-?-?-?-?-?-?-?-?-?- 34w 2d 231 lb (+14 lb) 119/78 Negative -?-?-?-?-?-?-?-?-?-?-?-?- Negative 150 35 -?-?-?-?-?-?-?-?-?-?-?-?- KW- no vb.lof.ct x. good fm. feels that baby is dropping. 11/01/24 -?-?-?-?-?-?-?-?-?-?-?-?- 36w 0d 233 lb 6 oz (+16 lb 6 oz) 135/80 Negative -?-?-?-?-?-?-?-?-?-?-?-?- Negative 130 36 Cephalic 0 -?-?-?-?-?-?-?-?-?-?-?-?- SM- no vb lof go od fm no regular ctx gbs done 11/09/24 -?-?-?-?-?-?-?-?-?-?-?-?- 37w 1d 235 lb 2 oz (+18 lb 2 oz) 124/77 Negative -?-?-?-?-?-?-?-?-?-?-?-?- Negative 140 37 Cephalic -?-?-?-?-?-?-?-?-?-?-?-?- SM- no vb lof go od fm no regularc tx 11/15/24 -?-?-?-?-?-?-?-?-?-?-?-?- 38w 0d 236 lb 4 oz (+19 lb 4 oz) 129/86 Negative -?-?-?-?-?-?-?-?-?-?-?-?- Negative 140 38 Cephalic 0 -?-?-?-?-?-?-?-?-?-?-?-?- JV- no lof, vagi nal bleeding, or dec fm. reactive NST. 11/20/24 -?-?-?-?-?-?-?-?-?-?-?-?- 38w 5d 236 lb 2 oz (+19 lb 2 oz) 134/86 Negative -?-?-?-?-?-?-?-?-?-?-?-?- Negative 140 39 Cephalic 0 -?-?-?-?-?-?-?-?-?-?-?-?- -3 KW-no vb /lof/ctx. good fm. NST reactive. KW-no vb/lof/ctx. good fm. N ST reactive. requesting IOL for narrow arch with last . this baby is measuring smaller but is requesting IOL. discussed with Alexis to put on her call day Notes Visit Date: 11/01/24 Last Updated by: Penelope Yang MD - ROS Constitutional Constitutional: Denies change in weight, fatigue, fever(s), headache(s), poor appetite or weakness Eyes Eyes: Denies blurry vision, change in vision, seeing flashes or spots in vision ENT HEENT: Denies dizziness, headache(s), loss taste/smell or sore throat Cardiovascular Cardiovascular: Denies chest pain, dizziness, dyspnea, irregular heart rhythm, leg edema, palpitations, rapid heart rate or vomiting Respiratory/Chest Respiratory/Chest: Denies chest tightness, cough, dyspnea or breast pain Gastrointestinal Gastrointestinal: Denies abdominal pain, anorexia, constipation, cramping, diarrhea, hemorrhoids, vomiting or weight changes Genitourinary Genitourinary: Denies dysuria, flank pain, genital lesions, genital pain, urinary frequency or urinary urgency Musculoskeletal Musculoskeletal: Denies back pain, difficulty walking, joint pain, limited range of motion, muscle cramps or numbness Integumentary Integumentary: Denies lesions or unusual bruising Neurologic Neurologic: Denies abnormal movements, abnormal speech, dizziness, numbness, seizure-like activity or syncope Psychiatric Psychiatric: Denies anxiety, behavioral changes, change in appetite, change in libido, cognitive impairment, confusion, depression, difficulty concentrating, hallucinations or suicidal thoughts Endocrine Endocrinology: Denies excessive sweating, polydipsia or polyuria Hematologic/Lymphatic Hematologic/Lymphatic: Denies easy bleeding, easy bruising or lymphadenopathy Allergic/Immunologic Allergic/Immunologic: Denies itchy eyes, lip swelling, seasonal rhinorrhea, rhinitis, throat swelling, tongue swelling, eczemia, wheezing or asthma Vital Signs Vital Signs Vital Signs: 11/23/24 22:17 11/23/24 22:17 11/23/24 22:17 Temperature 98.6 F Temperature Source Temporal Pulse Rate Respiratory Rate 14 Blood Pressure BP Systolic BP Diastolic Pulse Ox 11/23/24 22:18 11/23/24 22:18 11/23/24 22:19 Temperature Temperature Source Pulse Rate 92 99 Respiratory Rate Blood Pressure 140/63 H BP Systolic 140 BP Diastolic 63 Pulse Ox 11/23/24 22:19 11/23/24 22:38 11/23/24 22:38 Temperature Temperature Source Pulse Rate 89 Respiratory Rate Blood Pressure 128/77 H BP Systolic 128 BP Diastolic 77 Pulse Ox 97 11/24/24 00:58 11/24/24 00:58 11/24/24 00:58 Temperature Temperature Source Temporal Pulse Rate 74 Respiratory Rate Blood Pressure 104/56 L BP Systolic 104 BP Diastolic 56 Pulse Ox 11/24/24 00:58 11/24/24 00:58 11/24/24 01:46 Temperature 97.5 F L Temperature Source Pulse Rate Respiratory Rate 16 Blood Pressure 114/78 BP Systolic 114 BP Diastolic 78 Pulse Ox 11/24/24 01:46 11/24/24 03:10 11/24/24 03:11 Temperature Temperature Source Pulse Rate 69 Respiratory Rate Blood Pressure 134/64 H BP Systolic 134 BP Diastolic 64 Pulse Ox 99 11/24/24 03:11 11/24/24 03:11 11/24/24 03:11 Temperature Temperature Source Temporal Pulse Rate 74 Respiratory Rate 16 Blood Pressure BP Systolic BP Diastolic Pulse Ox 11/24/24 03:11 11/24/24 03:57 11/24/24 03:57 Temperature 97.5 F L Temperature Source Pulse Rate 86 Respiratory Rate Blood Pressure BP Systolic BP Diastolic Pulse Ox 96 11/24/24 04:00 11/24/24 04:00 11/24/24 04:03 Temperature Temperature Source Pulse Rate 78 84 Respiratory Rate Blood Pressure 131/77 H BP Systolic 131 BP Diastolic 77 Pulse Ox 11/24/24 04:03 11/24/24 04:05 11/24/24 04:05 Temperature Temperature Source Pulse Rate 94 Respiratory Rate Blood Pressure 163/94 H BP Systolic 163 BP Diastolic 94 Pulse Ox 99 11/24/24 04:08 11/24/24 04:08 11/24/24 04:10 Temperature Temperature Source Pulse Rate 79 Respiratory Rate Blood Pressure 140/80 H BP Systolic 140 BP Diastolic 80 Pulse Ox 98 11/24/24 04:10 11/24/24 04:13 11/24/24 04:13 Temperature Temperature Source Pulse Rate 84 89 Respiratory Rate Blood Pressure BP Systolic BP Diastolic Pulse Ox 99 11/24/24 04:15 11/24/24 04:15 11/24/24 04:17 Temperature Temperature Source Pulse Rate 92 88 Respiratory Rate Blood Pressure 139/80 H BP Systolic 139 BP Diastolic 80 Pulse Ox 11/24/24 04:17 11/24/24 04:20 11/24/24 04:20 Temperature Temperature Source Pulse Rate 94 Respiratory Rate Blood Pressure 139/76 H BP Systolic 139 BP Diastolic 76 Pulse Ox 99 11/24/24 04:31 11/24/24 04:31 11/24/24 04:31 Temperature Temperature Source Pulse Rate 96 Respiratory Rate 16 Blood Pressure 125/74 H BP Systolic 125 BP Diastolic 74 Pulse Ox 11/24/24 04:32 11/24/24 04:32 11/24/24 04:35 Temperature Temperature Source Pulse Rate 101 H Respiratory Rate Blood Pressure 120/65 BP Systolic 120 BP Diastolic 65 Pulse Ox 99 11/24/24 04:35 11/24/24 04:35 11/24/24 04:37 Temperature Temperature Source Pulse Rate 83 93 Respiratory Rate 16 Blood Pressure BP Systolic BP Diastolic Pulse Ox 11/24/24 04:37 11/24/24 04:40 11/24/24 04:40 Temperature Temperature Source Pulse Rate 96 Respiratory Rate Blood Pressure 123/71 H BP Systolic 123 BP Diastolic 71 Pulse Ox 98 11/24/24 04:40 11/24/24 04:41 11/24/24 04:41 Temperature Temperature Source Pulse Rate 91 Respiratory Rate 16 Blood Pressure BP Systolic BP Diastolic Pulse Ox 98 11/24/24 04:45 11/24/24 04:46 11/24/24 04:46 Temperature Temperature Source Pulse Rate 88 Respiratory Rate 16 Blood Pressure 120/60 BP Systolic 120 BP Diastolic 60 Pulse Ox 11/24/24 04:47 11/24/24 04:47 11/24/24 04:50 Temperature Temperature Source Pulse Rate 87 Respiratory Rate 16 Blood Pressure BP Systolic BP Diastolic Pulse Ox 98 11/24/24 04:51 11/24/24 04:51 11/24/24 04:52 Temperature Temperature Source Pulse Rate 81 Respiratory Rate Blood Pressure 102/59 L BP Systolic 102 BP Diastolic 59 Pulse Ox 99 11/24/24 04:52 11/24/24 04:55 11/24/24 04:55 Temperature Temperature Source Pulse Rate 82 86 Respiratory Rate Blood Pressure 104/55 L BP Systolic 104 BP Diastolic 55 Pulse Ox 11/24/24 04:55 11/24/24 04:57 11/24/24 04:57 Temperature Temperature Source Pulse Rate 82 Respiratory Rate 16 Blood Pressure BP Systolic BP Diastolic Pulse Ox 99 11/24/24 05:01 11/24/24 05:01 11/24/24 05:01 Temperature Temperature Source Pulse Rate 88 Respiratory Rate Blood Pressure 92/54 L BP Systolic 92 BP Diastolic 54 Pulse Ox 100 11/24/24 05:09 11/24/24 05:11/24/24 05:12 Temperature Temperature Source Pulse Rate 62 Respiratory Rate Blood Pressure 96/51 L 95/53 L BP Systolic 96 95 BP Diastolic 51 53 Pulse Ox 11/24/24 05:12 11/24/24 05:16 11/24/24 05:16 Temperature Temperature Source Pulse Rate 66 77 Respiratory Rate Blood Pressure 126/73 H BP Systolic 126 BP Diastolic 73 Pulse Ox 11/24/24 05:20 11/24/24 05:20 11/24/24 05:22 Temperature Temperature Source Pulse Rate 90 81 Respiratory Rate Blood Pressure 116/69 BP Systolic 116 BP Diastolic 69 Pulse Ox 11/24/24 05:22 11/24/24 05:24 11/24/24 05:24 Temperature Temperature Source Pulse Rate 80 Respiratory Rate Blood Pressure 106/56 L BP Systolic 106 BP Diastolic 56 Pulse Ox 100 11/24/24 05:27 11/24/24 05:27 11/24/24 05:27 Temperature Temperature Source Temporal Pulse Rate 80 Respiratory Rate Blood Pressure 115/60 BP Systolic 115 BP Diastolic 60 Pulse Ox 11/24/24 05:27 11/24/24 05:27 11/24/24 05:27 Temperature 97.4 F L Temperature Source Pulse Rate Respiratory Rate 16 Blood Pressure BP Systolic BP Diastolic Pulse Ox 100 11/24/24 05:30 11/24/24 05:30 11/24/24 05:32 Temperature Temperature Source Pulse Rate 75 75 Respiratory Rate Blood Pressure 109/57 L BP Systolic 109 BP Diastolic 57 Pulse Ox 11/24/24 05:32 Temperature Temperature Source Pulse Rate Respiratory Rate Blood Pressure BP Systolic BP Diastolic Pulse Ox 100 Weight Weight: 236 lb 3.2 oz Body Mass Index (BMI) 41.8 Physical Exam Const alert, oriented x3, no apparent distress and healthy appearing General Appearance: cooperative; Negative for anxious HEENT normocephalic Face and Sinus: normal facial exam Eyes EOMs intact bilaterally and no scleral icterus General Eye: normal appearance of both eyes Neck full ROM and supple Lymph Lymphatic: no lymphadenopathy noted Chest Chest: abnormal inspection of the chest Resp normal respiratory effort Effort and Inspection: able to speak in complete sentences Cardio regular rate GI soft to palpation and non-tender Inspection: gravid Palpation: soft; Negative for tender external exam normal Amniotic Fluid: ROM+plus Back/Spine no CVA tenderness Extremity normal to inspection, full ROM and no clubbing, cyanosis or edema General Extremity: Negative for calf tenderness or edema Skin Lesions: no lesions Rashes: no rashes Psych mental status grossly normal Labs Labs Labs: Blood Type A POSITIVE Antibody Screen NEGATIVE Hct 39.5 % (37-47) Hgb 13.9 g/dL (12.0-15.0) Obstetrics Ultrasound Syphilis Total Ab Nonreactive (Nonreactive) Rubella IgG Antibody Reactive (Nonreactive) Hep Bs Antigen Non-Reactive (Nonreactive) Hepatitis C Antibody Non-Reactive (Nonreactive) Chlamydia DNA (ABBY) Negative (Negative) N.gonorrhoeae DNA (ABBY) Negative (Negative) HIV 1&2 Antibody Nonreactive (Nonreactive) Glucose 1 Hr 50 gm 111 mg/dL (70-140) Group B Strep DNA Negative (Negative) Rhogam given: No Miscellaneous Test Assessment & Plan (1) Obesity affecting : QUALIFIERS: Trimester: third trimester Obesity type affecting : unspecified obesity Qualified Code(s): O99.213 - Obesity complicating , third trimester COMMENT: bmi 35 recommend weekly nsts after 36 growth US q 4 weeks. (2) Supervision of high-risk : QUALIFIERS: Trimester: third trimester Qualified Code(s): O09.93 - Supervision of high risk , unspecified, third trimester COMMENT: [id number], THOMAS 11/29/24, boy [employer] [facility] Singh, BF Pernell (3) : QUALIFIERS: Weeks of gestation: 39 weeks Qualified Code(s): Z3A.39 - 39 weeks gestation of COMMENT: GBS Negative, declined NIPT & Carrier testing. nl anatomy. (4) Anxiety: COMMENT: stable. BF new seizure activity in August. started fluoxetine 10/02 (5) Heart murmur: PLAN: Plan Patient presents IAL, plan expectant management for , pitocin PRN Pain management: plans epidural. GBS negative. Management of any complications: none I have reviewed the [facility] and made any clinically relevant updates.
--- NOTE | 2024-11-24 06:57 | EX.PCM.OBVAG ---
Assessment & Plan (1) Obesity affecting : QUALIFIERS: Trimester: third trimester Obesity type affecting : unspecified obesity Qualified Code(s): O99.213 - Obesity complicating , third trimester COMMENT: bmi 35 recommend weekly nsts after 36 growth US q 4 weeks. (2) Supervision of high-risk : QUALIFIERS: Trimester: third trimester Qualified Code(s): O09.93 - Supervision of high risk , unspecified, third trimester COMMENT: [id number], THOMAS 11/29/24, boy Maddex PC Singh, BF Pernell (3) : QUALIFIERS: Weeks of gestation: 39 weeks Qualified Code(s): Z3A.39 - 39 weeks gestation of COMMENT: GBS Negative, declined NIPT & Carrier testing. nl anatomy. (4) Anxiety: COMMENT: stable. BF new seizure activity in August. started fluoxetine 10/02 (5) Heart murmur: Maternal Data Information THOMAS Calculator Estimated Delivery Date Method Current WG Current Estimate 11/29/24 LMP (Certain) 39w 2d Other Estimates 11/29/24 Ultrasound #1 39w 2d Gestational age: 39 weeks 2 days [place] Doctor Who Attended Delivery: Denisa Mak Vaginal Delivery Maternal Presentation Maternal Presentation: Active Labor Vaginal Delivery Information Procedure Performed: Vacuum Assisted Vaginal Delivery Station at time of placement: +2 Number of vacuum pulls: 1 Number of vacuum pop offs: 0 Surgeon/Practitioner: Evelyn Villa Date of Procedure: 11/24/24 Pre-Procedure Diagnosis: @ 39 weeks 2 days, active labor, SROM Post-Procedure Diagnosis: @ 39 weeks 2 days, active labor, SROM, terminal bradycardia Type of anesthesia: Epidural Time of Delivery: 06:35 Findings Description of procedure: Details of delivery: This is a 29 y/o year old G2 P[1 woman who was admitted to labor and delivery for active labor and SROM. The decision was made to perform a vacuum extraction due to bradycardia. The risk benefits and alternatives of the procedure were discussed with the patient and verbal consent was obtained. The infant was noted to be at a +2 station, the cervix was completely dilated. The 's head was noted to be in the right occiput anterior presentation. The vacuum was placed in the correct placement in front of the posterior fontanelle. This was confirmed digitally. With the patient's next contraction, the vacuum was inflated and a gentle downward pressure was used to assist with bringing the baby's head to a +3 station. With 1 pull and 0pop offs. The head was delivered atraumatically. No nuchal cord was noted. The anterior shoulder followed by the posterior shoulder were delivered without difficulty. The infant was handed off to the patient's chest. The infant was found to be vigorous and crying and moving of all 4 extremities. The mouth and nares were bulb suctioned. After 60 second delay the cord was clamped and cut and the was handed off to the awaiting nurses for routine assessment. The placenta was delivered with gentle traction and uterine massage. Inspection of the vagina cervix and perineum was performed. There were no lacerations to the vagina or to the cervix. The peritoneum was found to have bilateral 1st degree tears. The perineal laceration was closed using a 2-0 Vicryl in the usual sterile fashion. The patient tolerated the procedure well sponge lap and needle counts were correct x2 and she is now recovering in stable condition. Procedure findings: Findings: Viable male Jimy, scores 8/9. Presentation: Vertex Amniotic Membrane Rupture Type: Spontaneous Amniotic Fluid Description: Clear Placental Delivery Description: Expressed Placenta Disposition: [facility] Specimen collected: No Cord Vessel Description: 3 Vessels Cord Entanglement: None A Gender: Male (1 minute): 8 (5 minute): 9 Multi Select Codes Urinary/Genital Urinary/Genital CPT Codes: 33059 delivery+PP Care([facility])
--- NOTE | 2024-11-24 07:05 | DCINST_ITS ---
Discharge Instructions Diet Discharge Diet: No restrictions DC O2, CPAP, BIPAP needs Home O2 Discharge instructions: No Dressing / Incision Discharge Activity: Return to Normal Activity, May Not Drive (while taking narcotic pain medications.) and May Shower May resume sexual activity in: 4-6 weeks Dressing / Incision Call your doctor if your incision/area has: Continuous Slow Oozing, Sudden Increased Bleeding, Increased Pain/ Swelling, Increased Redness and Foul Smelling Discharge Follow Up Care Please Follow Up With: Evelyn Villa DO When: Call [phone] to make an appointment with your doctor in 6 weeks. If you had elevated blood pressure or 4th degree laceration, you will need to be seen in 2 weeks. Test Results: Test results from this visit will be discussed in further detail at your follow- up appointment, if applicable. Discharge Plan Admission Admit Date/Time: 11/23/24 22:42 Attending Provider: Evelyn Villa Primary Care Provider: Care Physician,Michelle Primary Discharge Orders/Prescriptions Prescriptions: No Action folic acid 800 mcg tablet 0.8 mg PO DAILY cholecalciferol (vitamin D3) 25 mcg (1,000 unit) capsule 4,000 unit PO DAILY PNV [id number] 400 mcg-35 mg- 25 mg-5 mg tablet,chewable 1 tab PO DAILY magnesium 200 mg tablet 200 mg PO DAILY ascorbic acid (vitamin C) [C-500] 500 mg tablet 500 mg PO DAILY omega-3 fatty acids Capsule 500 mg PO DAILY Referrals / Follow Up: Care Physician,No Primary [Primary Care Provider] -
[2024-11-24] MEDS: Oxytocin 15 Units/NS 250ml 15 UNITS/250 ML IV.SOLN 83 UNITS IV (07:10)
[2024-11-24] MEDS: Benzocaine/Lanolin/Aloe Vera 85 GM Spray 1 SPRAY TOPICAL (08:09)
[2024-11-25 00:40] VITALS: BP 107/61; PULSE 82; O2SAT 97
[2024-11-25 00:43] VITALS: BP 107/61; PULSE 77; RESP 15; TEMP 36.2; O2SAT 98
[2024-11-25 06:31] VITALS: BP 120/76; PULSE 69; PULSE 78; RESP 16; TEMP 36.1; O2SAT 100; O2SAT 99
[2024-11-25 07:56] VITALS: BP 120/74; PULSE 80; PULSE 81; RESP 16; TEMP 36.2; O2SAT 98
--- NOTE | 2024-11-25 08:06 | PCM.PN.CNM ---
Subjective Subjective Patient doing well without complaints. Tolerating PO. Ambulating and voiding without difficulty. Feeding well. Denies chest pain, shortness of breath, calf pain/swelling, fevers, chills, lightheadedness. Objective Data Objective Data Vital Signs: Vital Signs Temp Pulse Resp BP Pulse Ox O2 Del Method 97.2 F L 81 16 120/74 98 Room Air 11/25/24 07:56 11/25/24 07:56 11/25/24 07:56 11/25/24 07:56 11/25/24 07:56 11/25/24 07:56 Oxygen Delivery Method Room Air Weight: 236 lb 3.2 oz Body Mass Index (BMI) 41.8 Intake & Output: Intake and Output for Last 24 Hours 11/23/24 11/24/24 11/25/24 23:59 23:59 23:59 Intake Total 1996.50 / 50 Output Total 200 / 200 Balance 1797.50 / 1797.50 Lab / Micro Data 11/23/24 22:55 Physical Exam Const alert Chest inspection of chest normal Resp normal respiratory effort and normal air movement Effort and Inspection: able to speak in complete sentences Cardio regular rate and regular rhythm GI normal to inspection, nondistended, normoactive bowel sounds Uterus Palpation: uterus fundus firm Extremity normal to inspection, full ROM and no calf tenderness Skin no rashes or lesions noted Psych mental status grossly normal Assessment & Plan (1) (spontaneous vaginal delivery): COMMENT: 11/24/24- MYNOR vacuum PLAN: s/p PPD # 1 1. routine post delivery care 2. breast feeding- support given 3. rh positive 4. rubella immune 5. d/c home later today
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
[2024-11-25 15:02] VITALS: BP 123/70; PULSE 85; PULSE 86; RESP 16; TEMP 36.2; O2SAT 94; O2SAT 98
== END 2024-11-25 15:30 | disposition home or self-care (01) | DRG 560 ==
LOC: WPOUT 22:43 → WP 22:45
PROVIDERS: Admitting Provider Obstetrics & Gynecology; Referring Provider Obstetrics & Gynecology; Visit Provider Obstetrics & Gynecology
DX: O99.214 Obesity complicating childbirth (principal); Z37.0 Single live birth; O99.344 Other mental disorders complicating childbirth; F41.9 Anxiety disorder, unspecified; O70.0 First degree perineal laceration during delivery; O76 Abnormality in fetal heart rate and rhythm complicating labor and delivery; Z3A.39 39 weeks gestation of pregnancy; Z79.899 Other long term (current) drug therapy
CPT/HCPCS: 59025; 59050; 85025; 86780; 86850; 86900; 86901; 99221; G0378